=== PATIENT | male | born 1975 | race Caucasian/White ===

== ENCOUNTER 2022-05-12 11:04 | Outpatient (REF) | payer OTHER, SELFPAY ==
--- NOTE | ~2022-05-12 | XR_ITS ---
EXAMINATION: XR CHEST CLINICAL INFORMATION: Other specified symptoms and signs involving the circulatory and respiratory system. COMPARISON: None TECHNIQUE: 2 views of the chest were obtained. FINDINGS: The cardiac and mediastinal contours are normal. The lungs are clear. There is no pleural effusion or pneumothorax. There are degenerative changes of the spine. XR/XR chest 2V IMPRESSION: No evidence for acute disease in the chest.
[2022-05-12 11:20] LABS: MANUAL DIFF FLAG NO
[2022-05-12 12:06] LABS: Basophils Absolute Auto 0.1 X10*3/uL (0.0-0.2); Basophils Percent Auto 0.7 % (0-2); Eosinophils Absolute Auto 0.1 X10*3/uL (0.0-0.4); Eosinophils Percent Auto 0.9 % (0-4); Hematocrit 47.6 % (42.0-52.0); Hemoglobin 15.7 g/dl (14.0-18.0); Imm Gran Abs Auto 0.03 X10*3/uL (0.00-0.03); Imm Gran Pct Auto 0.3 % (0.0-0.4); Lymphocytes Absolute Auto 2.7 X10*3/uL (1.2-4.9); Mean Corpuscular Hemoglobin 29.6 pg (27.0-33.0); Mean Corpuscular Volume 89.8 fL (80.0-98.0); Mean Platelet Volume 10.3 fL (9.4-12.4); Monocytes Absolute Auto 0.5 X10*3/uL (0.1-1.2); Monocytes Percent Auto 5.5 % (2-11); Neutrophils Absolute Auto 5.7 x10*3/uL (2.0-8.3); Neutrophils Percent Auto 62.6 % (45-73); Platelet Count 253 X10*3/uL (160-400)
[2022-05-12 12:10] LABS: Appearance Urine Clear; Color Urine Yellow; Glucose Urine UA Negative (Negative); Leukocyte Esterase Urine Negative (Negative); Nitrite Urine Negative (Negative); PH 6.5 (5.0-9.0); Urine Blood Negative (Negative); Urine Ketones Negative (Negative); Urine Protein Negative (Neg-Trace)
[2022-05-12 12:35] LABS: Alanine Aminotransferase 27 U/L (0-40); Albumin Level 4.7 g/dL (3.5-5.0); Alkaline Phosphatase 99 U/L (39-117); Anion Gap 15 (12-20); Aspartate Amino Transferase 25 U/L (5-37); Bilirubin Total 0.6 mg/dL (0.0-1.0); Blood Urea Nitrogen 18 mg/dL (9-16); Calcium 10.1 mg/dL (8.4-10.2); Carbon Dioxide 27 mmol/L (22-29); Chloride 104 mmol/L (96-108); Cholesterol 129 mg/dL; Estimated Glomerular Filt Rate > 60; Glucose Fasting 81 mg/dL (60-99); HDL Cholesterol 41 mg/dL; LDL Cholesterol Calculated 65 mg/dl; Potassium 4.6 mmol/L (3.3-5.1); Sodium 141 mmol/L (135-145); Total Protein 7.8 g/dL (6.5-8.0); Triglycerides 118 mg/dL
[2022-05-12 12:48] LABS: Creatinine Urine 168.32 mg/dL; Microalbum/Creatinine Ratio Ur 4.1 ug/mg cr
[2022-05-12 12:58] LABS: Prostate Specific Antigen Scr 0.13 ng/mL (<0.05-4.0); TSH reflex Free T4 1.68 uIU/mL (0.32-4.0)
[2022-05-12 13:48] LABS: Folate 4.2 ng/mL (> or = 4.0); Vitamin B12 623 pg/mL (200-900)
== END 2022-05-12 11:05 | disposition home or self-care (01) ==
LOC: HO.XRAY 11:04
PROVIDERS: PCP Family Medicine; Visit Provider Family Medicine
DX: Z00.00 Encounter for general adult medical examination without abnormal findings (principal); R13.10 Dysphagia, unspecified; K21.9 Gastro-esophageal reflux disease without esophagitis; R09.89 Other specified symptoms and signs involving the circulatory and respiratory systems; F17.200 Nicotine dependence, unspecified, uncomplicated; E53.8 Deficiency of other specified B group vitamins; I10 Essential (primary) hypertension; Z12.5 Encounter for screening for malignant neoplasm of prostate; Z79.899 Other long term (current) drug therapy
CPT/HCPCS: 36415; 71046; 80053; 80061; 81003; 82043; 82607; 82746; 84153; 84443; 85025; 99202

== ENCOUNTER 2022-10-24 10:56 | Outpatient (REF) | payer OTHER, SELFPAY ==
[2022-10-24 11:12] LABS: MANUAL DIFF FLAG NO
[2022-10-24 12:08] LABS: Basophils Absolute Auto 0.1 X10*3/uL (0.0-0.2); Eosinophils Absolute Auto 0.1 X10*3/uL (0.0-0.4); Eosinophils Percent Auto 1.8 % (0-4); Hematocrit 42.6 % (42.0-52.0); Hemoglobin 13.9 g/dl (14.0-18.0); Imm Gran Abs Auto 0.04 X10*3/uL (0.00-0.03); Imm Gran Pct Auto 0.8 % (0.0-0.4); Lymphocytes Absolute Auto 2.1 X10*3/uL (1.2-4.9); Lymphocytes Percent Auto 40.9 % (20-40); Mean Corpuscular HGB Conc 32.6 g/dl (31.0-36.0); Mean Corpuscular Hemoglobin 29.7 pg (27.0-33.0); Mean Platelet Volume 10.9 fL (9.4-12.4); Monocytes Absolute Auto 0.4 X10*3/uL (0.1-1.2); Monocytes Percent Auto 7.2 % (2-11); Neutrophils Absolute Auto 2.5 x10*3/uL (2.0-8.3); Neutrophils Percent Auto 48.3 % (45-73); Platelet Count 203 X10*3/uL (160-400); Red Blood Count 4.68 X10*6/uL (4.60-5.80); Red Cell Distribution Width 13.3 % (11.0-16.0); White Blood Count 5.1 X10*3/uL (4.8-10.8)
[2022-10-24 12:59] LABS: Alanine Aminotransferase 22 U/L (0-40); Albumin Level 3.9 g/dL (3.5-5.0); Alkaline Phosphatase 82 U/L (39-117); Anion Gap 10 (12-20); Aspartate Amino Transferase 19 U/L (5-37); Bilirubin Total 0.4 mg/dL (0.0-1.0); Blood Urea Nitrogen 20 mg/dL (9-16); Calcium 9.2 mg/dL (8.4-10.2); Carbon Dioxide 26 mmol/L (22-29); Chloride 112 mmol/L (96-108); Estimated Glomerular Filt Rate > 60; Glucose Fasting 105 mg/dL (60-99); Potassium 4.8 mmol/L (3.3-5.1); Sodium 143 mmol/L (135-145); TSH reflex Free T4 1.05 uIU/mL (0.32-4.0); Total Protein 6.4 g/dL (6.5-8.0)
[2022-10-24 13:03] LABS: Appearance Urine Cloudy; Color Urine Dark Yellow; Glucose Urine UA Negative (Negative); Leukocyte Esterase Urine Negative (Negative); Nitrite Urine Negative (Negative); PH 6.5 (5.0-9.0); Specific Gravity - Urine 1.025 (1.005-1.025); Urine Blood Negative (Negative); Urine Ketones Negative (Negative); Urine Protein Negative (Neg-Trace)
[2022-10-24 13:08] LABS: Erythrocyte Sedimentation Rate 2 MM/HR (0-15)
[2022-10-27 11:12] LABS: CRP High Sensitivity 0.4 mg/L
[2022-10-30 14:33] LABS: Testosterone, Free 72.2 pg/mL (35.0-155.0); Testosterone, Total 435 ng/dL (250-1100)
== END 2022-10-24 10:57 | disposition home or self-care (01) ==
LOC: HO.LAB 10:56
PROVIDERS: PCP Family Medicine; Visit Provider Family Medicine
DX: Z00.00 Encounter for general adult medical examination without abnormal findings (principal); R53.83 Other fatigue
CPT/HCPCS: 36415; 80053; 81003; 84402; 84403; 84443; 85025; 85652; 86141

== ENCOUNTER → 2022-11-03 14:09 | Outpatient (BNVA) | payer OTHER, SELFPAY | PROVIDERS: PCP Family Medicine; Visit Provider Internal Medicine | DX: J44.9 Chronic obstructive pulmonary disease, unspecified (principal); G47.33 Obstructive sleep apnea (adult) (pediatric); G25.81 Restless legs syndrome; M79.2 Neuralgia and neuritis, unspecified; E66.9 Obesity, unspecified; Z99.89 Dependence on other enabling machines and devices | CPT/HCPCS: 99202 ==

== ENCOUNTER → 2022-11-17 09:01 | Outpatient (BNVA) | payer OTHER, SELFPAY | PROVIDERS: PCP Family Medicine; Referring Provider Family Medicine; Visit Provider Internal Medicine Cardiovascular Disease | DX: I25.10 Atherosclerotic heart disease of native coronary artery without angina pectoris (principal); R07.89 Other chest pain | CPT/HCPCS: 93005; 99202 ==

== ENCOUNTER → 2022-11-21 12:43 | Outpatient (REF) | payer OTHER, SELFPAY ==
--- NOTE | 2022-11-21 12:46 | CA_ITS ---
Transthoracic Echocardiogram Patient (Last, First, Middle): Mina Lopes, Gender: Male Date of : 1975 Age: 47 Procedure Date: 11/21/2022 Procedure Type: Transthoracic Echocardiogram Location: OP Height: 185.42 cm Weight: 128.37 kg BSA: 2.49 m2 Heart Rate: 70 bpm BP: 124 / 78 mmHg Bed Laborer: SB Referring MD: Pk Ash MD Symptoms: I25.10 - Atherosclerotic heart disease of standing [place] coronary artery without... Study Quality: Adequate w contrast ECG Rhythm: Sinus Conclusions: - Normal left ventricular size and systolic function. The visually estimated ejection fraction is between 55-60%. - Normal right ventricular cavity size and systolic function. - There is mild dilatation of the sinuses of Valsalva measuring 3.90 cm and mild dilatation of the ascending aorta measuring 3.40 cm. Findings Procedure Information Contrast agent, definity, is being given per protocol without apparent complications. The quality of the study was technically difficult. The study quality is limited by patients body habitus. Left Ventricle Normal left ventricular size and systolic function. The visually estimated ejection fraction is between 55-60%. There is no evidence of regional wall motion abnormalities. Diastolic function is normal for age. Right Ventricle Normal right ventricular cavity size and systolic function. Atria The left atrium is normal in size. The right atrium is normal in size. Aortic Valve Normal aortic valve structure and function. There is no aortic valve stenosis. There is no aortic valve regurgitation. Mitral Valve Likely normal mitral valve structure and function. There is no mitral valve regurgitation. There is no mitral valve stenosis. Pulmonic Valve The pulmonic valve is likely normal. Tricuspid Valve Normal tricuspid valve structure and function. There is no tricuspid valve regurgitation. Normal right atrial pressure. There is no evidence of pulmonary hypertension. Great Vessels There is mild dilatation of the sinuses of Valsalva measuring 3.90 cm and mild dilatation of the ascending aorta measuring 3.40 cm. The visualized portions of the pulmonary artery and branches are normal. Venous The inferior vena cava is normal in size and collapses greater than 50% with inspiration. Pericardium/Pleural There is no evidence of pericardial effusion. Prior Study Comparison No prior study available for comparison. Measurements 2D Linear Measurements IVSd: 0.72 0.6-0.9/0.6-1.0 cm LVIDd: 4.73 3.9-5.3/4.2-5.9 cm LVIDd Index: 1.90 2.4-3.2/2.2-3.1 cm/m2 LVPWd: 0.72 0.7-1.1 cm LA Diam: 3.60 2.7-3.8/3.0-4.0 cm LAIDs Index: 1.45 1.5-2.3 cm/m2 LV Mass: 133.51 67-162/88-224 g LV Mass Index: 53.62 43-95/49-115 g/m2 LVOT Diam: 2.70 3.0+(-)1.3 cm 2D Systolic Function EF 4C: 59.40 >55% Mitral Valve MV Pk E: 0.54 MV PK A: 0.77 MV Decel Time: 155.00 E/A: 0.70 E'Lateral: 8.49 E'Medial: 6.42 E/E' Med: 8.40 E/E' Lat: 6.30 PHT: 45.00 MVA PHT: 4.89 Decel Glynn: 3.48 Aortic Valve AoV Pk Mesfin: 1.37 AoV Mn Mesfin: 1.00 AoV VTI: 0.26 AoV Pk Grad: 8.00 Aov Mn Grad: 5.00 RAMYA Cont.VTI: 5.29 LVOT LVOT Pk Mesfin: 1.33 LVOT Mn Mesfin: 0.93 LVOT VTI: 0.24 LVOT Pk Grad: 7.00 LVOT Mn Grad: 4.00 LVOT Diam: 2.70 LVOT Area: 5.73 Diastolic Function MV Pk E: 0.54 MV Pk A: 0.77 E/A: 0.70 E'Medial: 6.42 E/E' Med: 8.40 E' Laterial: 8.49 E/E' Lat: 6.30 Right Ventricle TAPSE (mm): 20.10 TVS' Mesfin: 10.30 Tricuspid Valve TR Pk Mesfin: 2.30 TR Pk Grad: 21.00 RA Press: 3.00 RVSP: 24.00 Great Vessels Aorta Sinus of Valsalva: 3.90 2.0-3.5 cm Ao Asc: 3.40 2.1-3.4 cm Pulmonary Valve PV Pk Mesfin: 0.77 Peak PV Grad: 2.00 Updated in Other Vendor System with Status of Final Ho Saucedo MD electronically signed on 11/22/2022 8:57:39 PM with status of Final
== END ==
LOC: HO.CARD 12:43
PROVIDERS: PCP Family Medicine; Visit Provider Internal Medicine Cardiovascular Disease
DX: I10 Essential (primary) hypertension (principal); I25.10 Atherosclerotic heart disease of native coronary artery without angina pectoris
CPT/HCPCS: 93306; Q9957

== ENCOUNTER 2022-12-03 10:50 | Outpatient (REF) | payer OTHER, SELFPAY ==
--- NOTE | 2022-12-03 11:51 | PFT_ITS ---
INDICATION: Shortness of breath. SPIROMETRY: FEV1 to FVC of 85% with an FEV1 of 3.56 L, which is 83% predicted and an FVC of 4.21 L, which is 76% predicted. No significant response to bronchodilator is noted. The maximum voluntary ventilation of 97% predicted. LUNG VOLUMES: Total lung capacity 83% predicted with an expiratory residual volume of 83% predicted. DIFFUSION CAPACITY: DLCO 81% predicted. COMPARISONS: None. INTERPRETATION: No obstructive nor restrictive ventilatory defects have been identified. No significant response to bronchodilator is noted. Normal maximum voluntary ventilation. Lung volumes are normal except for decrease in the expiratory reserve volume secondary to an elevated BMI. The diffusion capacity is low normal. Clinical correlation warranted. Ariel Robb MD MR/MODL / [id number]
== END 2022-12-03 10:51 | disposition home or self-care (01) ==
LOC: HO.RESP 10:50
PROVIDERS: PCP Family Medicine; Visit Provider Internal Medicine
DX: J44.9 Chronic obstructive pulmonary disease, unspecified (principal); E66.9 Obesity, unspecified; F17.200 Nicotine dependence, unspecified, uncomplicated
CPT/HCPCS: 94010; 94727; 94729

== ENCOUNTER → 2022-12-04 08:14 | Outpatient (REF) | payer OTHER, SELFPAY ==
--- NOTE | ~2022-12-04 | NM_ITS ---
Lexiscan Myocardial perfusion study Indication: Chest pain, assess for coronary disease and ischemia Technique: The patient was brought in for a Lexiscan perfusion study on 12/04/2022 and was injected 0.4 mg of Lexiscan intravenously. Within a minute of this injection 40 mCi of sestamibi was given intravenously. Images were obtained using the SPECT gamma camera interlaced with the gating device. Images were obtained in supine position. Resting perfusion study was performed on 12/10/2022. Patient was administered 40 mCi of sestamibi intravenously at rest. Images were then obtained in supine position. Images were processed with the software and compared side to side in short axis, horizontal long axis and vertical long axis views. Total DLP 163mGy-cm. Findings: Raw acquisition reviewed. The stress perfusion study showed mildly diminished tracer uptake along the inferior wall. There is improvement with CT attenuation correction is a distal of diaphragmatic attenuation artifact. The gated study shows normal LV systolic function with calculated LVEF of > 70%. LV cavity is normal in size. The gated study shows normal wall thickening and contraction of segments. Resting study shows mildly diminished tracer uptake along the basal to mid inferior wall. There is improvement with CT attenuation correction suggestive of diaphragmatic attenuation artifact. Gating at rest reveals normal wall motion with ejection fraction at > 70%. The findings are consistent with no reversible or fixed perfusion abnormality. NM/NM hilario perf SPECT rest & str Impression: 1. Myocardial perfusion imaging study shows normal myocardial perfusion. 2. Gated LVEF is > 70% during stress and rest. 3. Transient ischemic dilatation not present. EKG component of the test reported separately.
--- NOTE | 2022-12-04 08:16 | CA_ITS ---
Acquisition Time: 2022-12-04 08:27:22 Total Exercise Time: 00:02:00 Test Indications: CP Medications: SEE H Protocol: LEXISCAN Max HR: 105 BPM 59% of Pred: 177 BPM Max BP: 124/066 mmHG Max Work Load: 1.0 METS Pharmacological stress test with Lexiscan injection while sitting and kicking his legs, without anginal symptoms, without arrhythmias, with normotensive response to exercise, without EKG changes. Aminophylline 75mg IVP given to reverse Lexiscan. Nuclear images pending. Test reviewed with Dr. Parr. Referred By: Pk Ash Overread By: CARLOS ENRIQUE VALLEJO
== END ==
LOC: HO.CARD 08:14
PROVIDERS: PCP Family Medicine; Visit Provider Internal Medicine Cardiovascular Disease
DX: R07.89 Other chest pain (principal); I25.10 Atherosclerotic heart disease of native coronary artery without angina pectoris
CPT/HCPCS: 78452; 93017; A9500; J0280; J2785

== ENCOUNTER → 2023-01-01 10:45 | Outpatient (BNVA) | payer OTHER, SELFPAY | PROVIDERS: PCP Family Medicine; Visit Provider Internal Medicine | DX: J44.9 Chronic obstructive pulmonary disease, unspecified (principal); G47.33 Obstructive sleep apnea (adult) (pediatric); E66.9 Obesity, unspecified; Z68.38 Body mass index [BMI] 38.0-38.9, adult; Z99.89 Dependence on other enabling machines and devices | CPT/HCPCS: 99212 ==

== ENCOUNTER → 2023-01-08 13:56 | Outpatient (BNVA) | payer OTHER, SELFPAY | PROVIDERS: PCP Family Medicine; Referring Provider Family Medicine; Visit Provider Nurse Practitioner Family | DX: R07.89 Other chest pain (principal); I25.10 Atherosclerotic heart disease of native coronary artery without angina pectoris; I10 Essential (primary) hypertension; E66.9 Obesity, unspecified; E78.5 Hyperlipidemia, unspecified; Z95.5 Presence of coronary angioplasty implant and graft; Z68.37 Body mass index [BMI] 37.0-37.9, adult | CPT/HCPCS: 99212 ==

== ENCOUNTER 2023-02-03 11:21 | Outpatient (AMB) | payer OTHER, SELFPAY ==
[2023-02-03 11:30] VITALS: BP 118/70; PULSE 77; O2SAT 98; BMI 37.6
--- NOTE | 2023-02-03 11:30 | MHC.PC.OV ---
Vital Signs 02/03/23 11:30 Height 6 ft 1 in Weight 285 lb BMI 37.6 BP 118/70 Blood Pressure Location Lt brachial Position Sitting Pulse 77 Pulse Source Pulse Oximeter Pulse Oximetry (%) 98 Oxygen Delivery Method Room Air Intake Visit Reasons: f/u chronic conditions Intake Note: Patient is here for a follow up on chronic conditions. Allergies erythromycin base Allergy (Mild, Verified 02/03/23 11:36) Confusion clonidine Adverse Reaction (Severe, Verified 02/03/23 11:36) Vomiting Tobacco use date assessed: 02/03/23 Dental Screening Dental Screen Date: 02/03/23 Did you have a dental visit in the last 12 months?: Yes Did you have a dental problem in the last 6 months where you did not have access to dental care?: No Was dental information given to patient?: No HPI f/u chronic conditions HPI Details 48 y/o male presents to f/u chronic conditions. Pt had reported ongoing fatigue. Pt has scored high for significant anxiety/depression. He had spoken to the nurse navigator who had had a long conversation with pt today and are working on a better transportation for him. He denies any SI/HI or any plan for self harm. [facility] Medical History COPD (chronic obstructive pulmonary disease) Diabetes High cholesterol Hypertension Morbid obesity Obesity (BMI 30-39.9) KELSY on CPAP Torn rotator cuff Surgical History (Updated 01/08/23 @ 16:54 by Daisha Lopez LOLLYPOP MACHINE OPERATOR-C) History of carpal tunnel surgery Stented coronary artery Social History Housing: House Patient Tobacco Use Status: Former Tobacco user e-Cigarette/Vaping Use: Never Used Second Hand Smoke Exposure: No service: No Current occupational status: unemployed Current occupational exposures/hazards: No Cognitive needs: No Hearing needs: No Vision needs: No Questionnaire PHQ-9 Over the last 2 weeks, how often have you been bothered by any of the following problems? 1. Little interest or pleasure in doing things: nearly every day 2. Feeling down, depressed, or hopeless: nearly every day 3. Trouble falling or staying asleep, or sleeping too much: nearly every day 4. Feeling tired or having little energy: nearly every day 5. Poor appetite or overeating: nearly every day 6. Feeling bad about yourself - or that you are a failure or have let yourself or your family down: nearly every day 7. Trouble concentrating on things, such as reading the newspaper or watching television: nearly every day 8. Moving or speaking so slowly that other people could have noticed. Or the opposite - being so fidgety or restless that you have been moving around a lot more than usual: nearly every day 9. Thoughts that you would be better off or of hurting yourself in some way: nearly every day Total score: 27 Source: Developed by Drs. Arnoldo Carreno, Dyan Edwards, Alvarez Jose and colleagues, with an educational shanna from [employer]. Thrive Questionnaire Date Thrive assessed: 06/16/22 I am a: Patient What is your living situation today?: I have a steady place to live Within the past 12 months, did the food you bought not last and you didn't have the money to get more?: Never true Within the past 12 months, did you worry whether your food would run out before you got money to buy more?: Never true Do you have trouble paying for medicines?: No Do you have trouble getting transportation to medical appointments?: Yes Do you have trouble paying your heating and electricity bill?: No Do you have trouble taking care of your child, family member or friend?: No Do you have trouble with day-to-day activities such as bathing, preparing meals, shopping, managing finances, etc.?: Yes Are you currently unemployed and looking for a job?: No Are you interested in more education?: No AUDIT C Alcohol Use Questionnaire (AUDIT-C) 1. How often do you have a drink containing alcohol?: Never 3. How often do you have six or more drinks on one occasion?: Never Total Score: 0 LAMBERTO-7 AMB Questionnaire LAMBERTO-7 Date LAMBERTO - 7 assessed: 06/16/22 Feeling nervous, anxious, or on edge: 3 = Nearly every day Not being able to stop or control worryin = Nearly every day Worrying too much about different things: 3 = Nearly every day Trouble relaxin = Nearly every day Being so restless that it is hard to sit still: 3 = Nearly every day Becoming easily annoyed or irritable: 3 = Nearly every day Feeling afraid as if something awful might happen: 3 = Nearly every day Total LAMBERTO-7 score (0-4 normal; 5-9 mild; 10-14 moderate; 15-21 severe): 21 Source: Developed by Drs. Arnoldo Carreno, Dyan Edwards, Alvarez Jose and colleagues, with an educational shanna from [employer]. ACT Questionnaire In the past 4 weeks, how much of the time did your asthma keep you from getting as much done at work, school or at home?: Most of the time During the past 4 weeks, how often have you had shortness of breath?: More than once a day During the past 4 weeks, how often did your asthma symptoms wake you up at night or earlier than usual in the morning?: Not at all During the past 4 weeks, how often have you had to use your rescue inhaler or nebulizer medication?: Not at all How would you rate your asthma control during the past 4 weeks?: Not controlled at all Score: 14 Review of Systems Const Reports fatigue Psych Reports anxiety and Reports depression Endo Reports fatigue Physical exam (Primary Care) Vital Signs: Last Vital Signs Pulse 77 02/03/23 11:30 BP 118/70 02/03/23 11:30 Pulse Ox 98 02/03/23 11:30 Oxygen Delivery Method Room Air 02/03/23 11:30 BMI result Body Mass Index 37.6 Tobacco/Smoking Status: Tobacco use Status Tobacco use date assessed 02/03/23 02/03/23 11:44 Patient Tobacco Use Status Former Tobacco user 02/03/23 11:44 e-Cigarette/Vaping Use Never Used 02/03/23 11:44 PHQ-9: PHQ-9 Score PHQ-9: Total score 27 02/03/23 12:06 Thrive Assessment: Date of Thrive Assessment Date Thrive assessed 06/16/22 02/03/23 11:44 Assessment and Plan Assessment & Plan (1) Anxiety with depression: Code(s): F41.8 - Other specified anxiety disorders Plan: Questionnaires scoring high for depression and anxiety Spoke to nurse navigator who had had a long conversation with patient today They are working on better transportation options for him Patient denies suicidality or any plan of self-harm. Patient has a therapist and psychiatrist and will follow-up with them as well. (2) Fatigue: Code(s): R53.83 - Other fatigue Plan: Had questions regarding low testosterone but T levels were within normal limits (3) Chest discomfort: Code(s): R07.89 - Other chest pain Plan: Extensive workup now including echocardiogram and nuclear stress test are normal. He does have known early coronary artery disease and is followed by cardiology. Chest x-ray also normal. No underlying cause found for chest discomfort which is somewhat atypical pain Will add physical therapy for likely chest wall pain and associated pain from a left shoulder rotator cuff injury. (4) Left knee pain: Code(s): M25.562 - Pain in left knee Plan: Check x-ray and refer to ortho Orders: Orders XR knee LT 3V Today M25.562 - Pain in left knee PT Evaluation and Treatment Today R07.89 - Other chest pain Referrals Orthopedics Referral M25.512 - Pain in left shoulder, M25.562 - Pain in left knee Medications: Changed From gabapentin 100 mg (0.3333 x 300 mg) PO TID 30 days 30 caps 0RF To gabapentin 300 mg PO TID 30 days 90 caps 2RF Refilled aspirin (Adult Low Dose Aspirin) 81 mg PO DAILY 90 days 90 tabs 2RF metformin 500 mg PO BID 90 days 180 tabs 2RF Coding Level of Care Code Est Pt Level 4 (50628) Diagnoses Anxiety with depression F41.8 Fatigue R53.83 Chest discomfort R07.89 Left knee pain M25.562
== END 2023-02-03 12:15 | disposition home or self-care (01) ==
PROVIDERS: Visit Provider Family Medicine
DX: F41.8 Other specified anxiety disorders (principal); R53.83 Other fatigue; R07.89 Other chest pain; M25.562 Pain in left knee
CPT/HCPCS: 99214

== ENCOUNTER 2023-03-25 09:14 | Outpatient (REF) | payer OTHER, SELFPAY ==
--- NOTE | ~2023-03-25 | FL_ITS ---
EXAMINATION: ESOPHAGRAM CLINICAL INFORMATION: Dysphasia. COMPARISON: None available. TECHNIQUE: Esophagram. FINDINGS: There is normal elevation of the soft palate while saying candy. There is normal apposition of the vocal cords while saying E. The patient swallowed thin and thick barium and a half-inch diameter barium tablet without difficulty. No nasopharyngeal reflux or tracheal aspiration. No significant cricopharyngeal hypertrophy. No Zenker's diverticulum is seen. There is some delay in transit while swallowing barium-coated cookie with some residual noted initially within the piriform sinuses. The patient states at that time that this reproduced his findings. Lying prone and drinking there is noted to be hypomotility of the esophagus. No mucosal abnormality is seen. No persistent stricture is noted. No hiatal hernia is seen. No gastroesophageal reflux was elicited during the study, including with water siphon test. FL/FL barium swallow with air IMPRESSION: Esophageal hypomotility as described with some delay in transit of solid food, most prominent in the cervical esophagus.
== END 2023-03-25 09:15 | disposition home or self-care (01) ==
LOC: HO.XRAY 09:14
PROVIDERS: PCP Family Medicine; Visit Provider Physician Assistant
DX: R13.10 Dysphagia, unspecified (principal); K51.90 Ulcerative colitis, unspecified, without complications; K21.9 Gastro-esophageal reflux disease without esophagitis
CPT/HCPCS: 74221

== ENCOUNTER → 2023-03-25 09:15 | Outpatient (BNV) | payer OTHER, SELFPAY | PROVIDERS: PCP Family Medicine; Visit Provider Radiology Diagnostic Radiology | DX: R13.10 Dysphagia, unspecified (principal) | CPT/HCPCS: 74221 ==

== ENCOUNTER 2023-03-31 09:31 | Outpatient (REF) | payer OTHER, SELFPAY ==
--- NOTE | ~2023-03-31 | XR_ITS ---
EXAMINATION: XR KNEE, LEFT CLINICAL INFORMATION: Pain. COMPARISON: None available. TECHNIQUE: AP, lateral and tunnel views of the left knee are submitted. FINDINGS: Bony alignment and mineralization are normal. The lateral, medial and patellofemoral joint space compartments are well-maintained. No fracture or dislocation is seen. This is very small joint effusion. There is a small osteophyte arising from the upper pole of the patella. No foreign body is seen. XR/XR knee LT 3V IMPRESSION: 1. No left knee fracture, dislocation or usual degenerative change is seen. 2. There is a very small left knee joint effusion.
[2023-03-31 09:49] LABS: MANUAL DIFF FLAG NO
[2023-03-31 10:55] LABS: Basophils Percent Auto 0.6 % (0-2); Eosinophils Absolute Auto 0.1 X10*3/uL (0.0-0.4); Eosinophils Percent Auto 1.1 % (0-4); Hematocrit 43.7 % (42.0-52.0); Hemoglobin 14.6 g/dl (14.0-18.0); Imm Gran Abs Auto 0.04 X10*3/uL (0.00-0.03); Imm Gran Pct Auto 0.6 % (0.0-0.4); Lymphocytes Absolute Auto 2.4 X10*3/uL (1.2-4.9); Lymphocytes Percent Auto 38.8 % (20-40); Mean Corpuscular HGB Conc 33.4 g/dl (31.0-36.0); Mean Corpuscular Hemoglobin 30.2 pg (27.0-33.0); Mean Corpuscular Volume 90.3 fL (80.0-98.0); Monocytes Absolute Auto 0.5 X10*3/uL (0.1-1.2); Monocytes Percent Auto 7.4 % (2-11); Neutrophils Absolute Auto 3.2 x10*3/uL (2.0-8.3); Neutrophils Percent Auto 51.5 % (45-73); Platelet Count 223 X10*3/uL (160-400); Red Blood Count 4.84 X10*6/uL (4.60-5.80); Red Cell Distribution Width 13.2 % (11.0-16.0); White Blood Count 6.2 X10*3/uL (4.8-10.8)
[2023-03-31 12:03] LABS: Alanine Aminotransferase 20 U/L (0-40); Albumin Level 4.3 g/dL (3.5-5.0); Alkaline Phosphatase 87 U/L (39-117); Anion Gap 9 (12-20); Aspartate Amino Transferase 19 U/L (5-37); Bilirubin Total 0.3 mg/dL (0.0-1.0); Blood Urea Nitrogen 19 mg/dL (9-16); Calcium 9.9 mg/dL (8.4-10.2); Carbon Dioxide 25 mmol/L (22-29); Chloride 113 mmol/L (96-108); Estimated Glomerular Filt Rate 57; Glucose Random 139 mg/dL (60-115); Potassium 3.8 mmol/L (3.3-5.1); Sodium 143 mmol/L (135-145); Total Protein 7.4 g/dL (6.5-8.0)
== END 2023-03-31 09:32 | disposition home or self-care (01) ==
LOC: HO.XRAY 09:31
PROVIDERS: PCP Family Medicine; Visit Provider Family Medicine
DX: Z00.00 Encounter for general adult medical examination without abnormal findings (principal); M25.562 Pain in left knee; Z20.9 Contact with and (suspected) exposure to unspecified communicable disease
CPT/HCPCS: 36415; 73562; 80053; 85025

== ENCOUNTER 2023-04-07 08:32 | Outpatient (REF) | payer OTHER, SELFPAY ==
--- NOTE | ~2023-04-07 | XR_ITS ---
EXAMINATION: XR knee LT 1V CLINICAL INFORMATION: Pain COMPARISON: 03/31/2023 TECHNIQUE: Single sunrise view of the left knee FINDINGS: The patellofemoral joint is well aligned. Small osteophytes are seen, particularly along the lateral aspect of the patella. Soft tissues appear unremarkable. XR/XR knee LT 1V IMPRESSION: Mild degenerative changes of the patellofemoral joint.
--- NOTE | ~2023-04-07 | XR_ITS ---
EXAMINATION: XR KNEE AP STANDING CLINICAL INFORMATION: Knee pain COMPARISON: None available. TECHNIQUE: AP bilateral standing view of the knees was obtained. FINDINGS: No fracture or dislocation. On standing knee view, knee joints appear symmetric with only mild left medial knee joint narrowing seen. XR/XR knee standing BI IMPRESSION: Mild left medial knee joint narrowing.
== END 2023-04-07 08:33 | disposition home or self-care (01) ==
LOC: HO.HOSX 08:32
PROVIDERS: Visit Provider Physician Assistant
DX: M17.12 Unilateral primary osteoarthritis, left knee (principal); E11.9 Type 2 diabetes mellitus without complications
CPT/HCPCS: 20610; 73560; 73565; J1020

== ENCOUNTER 2023-04-07 14:55 | Outpatient (AMB) | payer OTHER, SELFPAY ==
[2023-04-07 15:14] VITALS: BMI 38.6
--- NOTE | 2023-04-07 15:14 | MHC.OFFVIS ---
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 Hx of left knee surgery 06/2020. Patient reports ongoing pain since his surgery but its getting worse over the years. Hx of many cortisone injections with no relief. Hx of a PT for about 2 months with no relief. Pain is on the medial and lateral aspect of the knee per patient. 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 The patient reports chronic pain since his left knee surgery in 06/2020. He claims his pain is on the medial and lateral aspect of the left knee. He reports increased pain with weight bearing. Patient has a surgical history of left knee in 06/2020, unclear what procedure was performed. Patient has a history of cortisone injections with no relief. Patient has a history of participating in physical therapy for about 2 months with no relief. [facility] Medical History COPD (chronic obstructive pulmonary disease) Diabetes High cholesterol Hypertension Morbid obesity Obesity (BMI 30-39.9) KELSY on CPAP Torn rotator cuff Surgical History (Updated 01/08/23 @ 16:54 by Daisha Lopez NP-C) Stented coronary artery History of carpal tunnel surgery Social History Housing: House Patient Tobacco Use Status: Former Tobacco user e-Cigarette/Vaping Use: Never Used Second Hand Smoke Exposure: No service: No Current occupational status: unemployed Current occupational exposures/hazards: No Cognitive needs: No Hearing needs: No Vision needs: No Review of Systems Const All systems reviewed & are unremarkable except as noted in HPI and below Physical Exam Vital Signs: BMI result Body Mass Index 38.6 Const General: cooperative and no acute distress Orientation/consciousness: patient oriented x3 Resp Effort & Inspection: normal respiratory effort and able to speak in complete sentences Cardio Peripheral pulses: Peripheral pulses 2+ throughout Skin General skin exam: no rashes or lesions noted Neuro General: patient oriented x3 Extrem Other: Left knee: Normal to inspection. No ecchymosis, erythema, or joint effusion. Tenderness to palpation to the medial or lateral joint lines. Full knee extension and flexion. Negative Kalpana's. NVI. Office Procedures Joint Injection/Drain Joint Injection/Drain Primary Site: left knee Prep: site was prepped using aseptic technique, ethochloride spray was applied and injection warnings given Injected: 40 mg of, DepoMedrol, with 8 mL of (2% plain lido) and in the joint Approach Used: anterolateral Procedure: The patient tolerated the procedure well, but had some pain with the injection and there was some relief with the local anesthesia Coding 13056 - Large joint Procedure code (CPT) selection complete Results Reviewed Results Reviewed: 04/07/23 15:35 Lidocaine HCl 2 % MPF [Xylocaine 2 % MPF] 5 ml .ROUTE .STK-MED ONE methylPREDNISolone acetate [DEPO-MedroL] 40 mg .ROUTE .STK-MED ONE Assessment & Plan Assessment & Plan (1) Osteoarthritis of left knee: Code(s): M17.12 - Unilateral primary osteoarthritis, left knee Qualifiers: Osteoarthritis type: primary Qualified Code(s): M17.12 - Unilateral primary osteoarthritis, left knee (2) Diabetes: Code(s): E11.9 - Type 2 diabetes mellitus without complications Plan Mr. Gonsalez is a 48-year-old male who presents in the office today, as a new patient, for an evaluation of left knee pain. The patient reports chronic pain since his left knee surgery in 06/2020. He claims his pain is on the medial and lateral aspect of the left knee. He reports increased pain with weight bearing. Patient has a surgical history of left knee in 06/2020, unclear what procedure was performed. Patient has a history of cortisone injections with no relief. Patient has a history of participating in physical therapy for about 2 months with no relief. Although the exam for the left knee was normal the patient reports pain and discomfort with weight bearing. The patient confirms cortisone injections in the past prior to his left knee surgery (unknown procedure). He states these injections did not give him relief. I discussed the role of injections with him while in the office today. He has agreed to move forward with a cortisone injection. However, should he not have resolution of symptoms he will call the office in 4 weeks and we will refer him for an MRI at this time. The patient was offered a cortisone injection in the left knee with 40mg of DepoMedrol. The patient was explained the risk, benefits, and alternatives to receiving this injection. After receiving consent for the injection, the patient had the procedure done while in office today. The patient tolerated the procedure well with no complications. Follow up will be in 4 weeks via phone call to discuss moving forward with an MRI, or sooner if needed. X-rays of the left knee which were obtained while in the office today and were reviewed by me, Laverne Rae PA-C, revealed osteoarthritis. Orders: Orders XR knee standing BI Today M25.569 - Pain in unspecified knee XR knee LT 1V Today M25.569 - Pain in unspecified knee Patient Instructions: Scribed for Laverne Rae PA-C by Megha Kennedy medical record librarians teacher, on 04/07/2023 at 3:00 pm, EST. Coding Level of Care Code New Pt Level 4 (90642) Diagnoses Primary osteoarthritis of left knee M17.12 Osteoarthritis type: primary Diabetes E11.9 CPT Codes Coding - 32344 Large joint: 65664 - Large joint ([id number])
== END 2023-04-07 15:45 | disposition home or self-care (01) ==
PROVIDERS: PCP Family Medicine; Visit Provider Physician Assistant
DX: M17.12 Unilateral primary osteoarthritis, left knee (principal)
CPT/HCPCS: 20610; 99204

== ENCOUNTER 2023-04-08 11:16 | Outpatient (AMB) | payer OTHER, SELFPAY ==
[2023-04-08 11:25] VITALS: BP 100/52; PULSE 88; RESP 18; TEMP 37.2; O2SAT 99; BMI 37.3
--- NOTE | 2023-04-08 11:25 | A.OFFPC_ITS ---
Vital Signs 04/08/23 11:25 Height 6 ft Weight 275 lb 6 oz BMI 37.3 BP 100/52 L Blood Pressure Location Lt brachial Position Sitting Respiration 18 Pulse 88 Pulse Source Pulse Oximeter Temp 98.9 F Temp Source Temporal Artery Scan Pulse Oximetry (%) 99 Oxygen Delivery Method Room Air Intake Visit Reasons: f/u chronic conditions Intake Note: Patient is here to discuss chronic conditions. Patient reports he uses a CPAP machine and is concerned about dark red dried line around his mouth/on his lips. Patient reports he often experiences dry mouth because of his CPAP and when he swishes water in the morning its pink with blood tinged mucus. 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 A1c today 04/08/23 is 5.6%. He is on metformin 500mg b.i.d. Blood pressure today 100/52. He is on carvedilol 25mg and amlodipine 10mg daily. Pt has complaints of a thrush. [facility] Medical History COPD (chronic obstructive pulmonary disease) Diabetes High cholesterol Hypertension Morbid obesity Obesity (BMI 30-39.9) KELSY on CPAP Torn rotator cuff Surgical History (Updated 01/08/23 @ 16:54 by Daisha Lopez RF TEST ENGINEER-C) Stented coronary artery History of carpal tunnel surgery Social History Housing: House Patient Tobacco Use Status: Former Tobacco user e-Cigarette/Vaping Use: Never Used Second Hand Smoke Exposure: No service: No Current occupational status: unemployed Current occupational exposures/hazards: No Cognitive needs: No Hearing needs: No Vision needs: No Questionnaire Thrive Questionnaire Date Thrive assessed: 06/16/22 LAMBERTO-7 AMB Questionnaire LAMBERTO-7 Date LAMBERTO - 7 assessed: 06/16/22 Source: Developed by Drs. Arnoldo Carreno, Dyan dEwards, Alvarez Jose and colleagues, with an educational shanna from [employer]. Review of Systems Const Denies chills, Denies fatigue, Denies fever(s), Denies headache(s) and Denies weakness ENT Denies dizziness and Denies headache(s) Card Denies chest pain, Denies lightheadedness, Denies dyspnea and Denies other (Palpitations) Resp Denies cough, Denies dyspnea, Denies wheezing and Denies other ( shortness of breath) Musc Denies numbness and Denies tingling Neuro Denies dizziness, Denies headache(s), Denies numbness, Denies tingling, Denies paresthesias and Denies weakness Psych Denies anxiety and Denies depression Endo Denies fatigue Aller/Immun Denies wheezing Physical exam (Primary Care) Vital Signs: Last Vital Signs Temp 98.9 F 04/08/23 11:25 Pulse 88 04/08/23 11:25 Resp 18 04/08/23 11:25 BP 100/52 L 04/08/23 11:25 Pulse Ox 99 04/08/23 11:25 Oxygen Delivery Method Room Air 04/08/23 11:25 BMI result Body Mass Index 37.3 Tobacco/Smoking Status: Tobacco use Status Tobacco use date assessed 02/03/23 04/08/23 11:29 Patient Tobacco Use Status Former Tobacco user 04/08/23 11:29 e-Cigarette/Vaping Use Never Used 04/08/23 11:29 Thrive Assessment: Date of Thrive Assessment Date Thrive assessed 06/16/22 04/08/23 11:29 Const General: no acute distress and well developed Nutritional Appearance: well nourished Orientation/consciousness: patient oriented x3 [facility] Head: Yes normocephalic and Yes atraumatic Eyes General: appearance normal, both eyes and all related structures Pupils: Equal, round and reactive pupils present EOM: EOMs intact bilaterally Resp Effort & Inspection: normal respiratory effort Auscultation: clear to auscultation bilaterally Cardio Rate: regular rate Rhythm: regular rhythm Heart sounds: S1 normal heart sound present, S2 normal heart sound present, no gallops, no murmurs and no rubs Neuro General: patient oriented x3 and gait normal Cranial nerves: Yes Equal, round and reactive pupils present Psych Affect: normal affect Results AMB Hemoglobin A1c AMB Hemoglobin A1c 5.6 % Last Edit by Cuca Lackey on 04/08/23 11:5 0 Results Reviewed Results Reviewed: Laboratory Last Values Hgb A1c (Clinic) 5.6 % (4.0-6.0) 04/08/23 11:44 Assessment and Plan Assessment & Plan (1) Diabetes: Code(s): E11.9 - Type 2 diabetes mellitus without complications Plan: A1c 5.6% shows good control. Goal is less than 7.0% Continue current medication regimen (2) Hypertension: Code(s): I10 - Essential (primary) hypertension Plan: Blood pressure controlled. Goal is less than 130/80 No medication changes made (3) Difficulty swallowing: Comment: Non invasive follow- awaiting cardiac/ pulmonary consults. Code(s): R13.10 - Dysphagia, unspecified Plan: Ongoing difficulty swallowing. His barium swallow test showed hypomotility primarily in the cervical region. Will check a modified barium swallow and likely refer to speech language pathology or ENT (4) Thrush: Code(s): B37.0 - Candidal stomatitis Plan: Dark discoloration on tongue and patient uses a steroid controller inhaled medication Will give him a script for nystatin Advised he rinse his mouth out after use of his inhaled medications. (5) Osteoarthritis of left knee: Code(s): M17.12 - Unilateral primary osteoarthritis, left knee Qualifiers: Osteoarthritis type: primary Qualified Code(s): M17.12 - Unilateral primary osteoarthritis, left knee Plan: Ongoing left knee arthritis and pain. X-ray showed degenerative changes Steroid injection yesterday. Patient says he has had no relief though it is still rather soon to conclude failure. He has follow-up with ortho Orders: Orders FL barium swallow modified Today R13.10 - Dysphagia, unspecified Medications: New nystatin swish and swallow 5 mL PO DAILY 10 days 50 mL 1RF Coding Level of Care Code Est Pt Level 4 (17829) Diagnoses Diabetes E11.9 Hypertension I10 Difficulty swallowing R13.10 Thrush B37.0 Primary osteoarthritis of left knee M17.12 Osteoarthritis type: primary
== END 2023-04-08 12:58 | disposition home or self-care (01) ==
PROVIDERS: PCP Family Medicine; Visit Provider Family Medicine
DX: E11.9 Type 2 diabetes mellitus without complications (principal); I10 Essential (primary) hypertension; R13.10 Dysphagia, unspecified; B37.0 Candidal stomatitis; M17.12 Unilateral primary osteoarthritis, left knee
CPT/HCPCS: 99214

== ENCOUNTER 2023-04-30 10:32 | Outpatient (AMB) | payer OTHER, SELFPAY ==
[2023-04-30 10:59] VITALS: BP 110/70; PULSE 73; O2SAT 99; BMI 36.3
--- NOTE | 2023-04-30 10:59 | MHC.OFFVIS ---
Intake Vital Signs 04/30/23 10:59 Height 6 ft Weight 268 lb BMI 36.3 BP 110/70 Blood Pressure Location Lt brachial Position Sitting Pulse 73 Pulse Source Pulse Oximeter Pulse Oximetry (%) 99 Oxygen Delivery Method Room Air Intake Visit Reasons: somnolence Intake Note: pt is here for follow up and states he is still always tired even though he is using cpap. 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 Required: No Allergies erythromycin base Allergy (Mild, Verified 04/30/23 11:26) Confusion clonidine Adverse Reaction (Severe, Verified 04/30/23 11:26) Vomiting Medication List - Last Reconciled 04/30/23 by Jessica Wylie MD amitriptyline 50 mg PO BEDTIME amlodipine 10 mg PO DAILY 90 days aripiprazole 5 mg PO DAILY 90 days aspirin (Adult Low Dose Aspirin) 81 mg PO DAILY 90 days atorvastatin 80 mg PO DAILY 90 days bupropion HCl 150 mg PO QAM 90 days bupropion HCl 300 mg PO DAILY 90 days carvedilol 25 mg PO Q12H 90 days cholecalciferol (vitamin D3) 25 mcg PO DAILY 90 days clopidogrel 75 mg PO DAILY 90 days cyanocobalamin (vitamin B-12) 1,000 mcg PO DAILY 90 days duloxetine 30 mg PO DAILY 90 days esomeprazole magnesium 20 mg PO DAILY gabapentin 300 mg PO TID 30 days hydroxyzine HCl 25 mg PO BID 30 days indomethacin 25 mg PO BID 30 days ipratropium-albuterol 20-100 mcg/actuation (Combivent Respimat) 1 puff inhalation Q6H 90 days isosorbide mononitrate ER 30 mg PO DAILY 90 days loratadine 10 mg PO DAILY 90 days metformin 500 mg PO BID 90 days nystatin 5 mL PO DAILY 10 days pramipexole 0.5 mg PO BEDTIME 30 days tamsulosin 0.4 mg PO DAILY 90 days topiramate 100 mg PO DAILY triamcinolone acetonide 0.1% 1 appl topical DAILY 30 days umeclidinium-vilanterol 62.5-25 mcg/actuation (Anoro Ellipta) 1 inh inhalation Q24H 30 days Do you need a note to return to daycare/school/sports/work: No HPI somnolence HPI Details Mina is 48 years old gentleman with multiple comorbidities, including gross obesity, obstructive sleep apnea, and chronic asthma/COPD, comes for his routine follow-up. He uses CPAP very regularly every night and to 10 hours daily. He still remains tired and sleepy, He has lot of osteoarthritis in multiple joints, and is not able to move around much. He tries to limit his calories intake but cannot lose weight. His breathing is remaining stable but he continues to be short of breath on minimal exertion. His pulmonary function test does not show much of obstructive airway disorder, But he is using Anoro Ellipta once a day and Combivent Respimat 4 times a day. Still has mild intermittent cough, and gets short of breath on exertion. He is a former smoker, quit a few years ago and does not smoke anymore. [facility] Medical History Obesity (BMI 30-39.9) COPD (chronic obstructive pulmonary disease) KELSY on CPAP Morbid obesity Torn rotator cuff Diabetes High cholesterol Hypertension Surgical History Stented coronary artery History of carpal tunnel surgery Social History Housing: House Patient Tobacco Use Status: Former Tobacco user e-Cigarette/Vaping Use: Never Used Second Hand Smoke Exposure: No service: No Current occupational status: unemployed Current occupational exposures/hazards: No Cognitive needs: No Hearing needs: No Vision needs: No Review of Systems Const All systems reviewed & are unremarkable except as noted in HPI and below Eyes Reports no additional complaints ENT Reports no additional complaints Card Denies chest pain, Denies irregular heart rhythm and Denies leg edema Resp Reports as per HPI GI Reports heartburn (GERD symptoms being treated) Reports difficulty urinating and Reports nocturia Musc Reports numbness (Lower extremity) and Reports other (Carpal tunnel syndrome both wrists) Skin/Breast Reports dry skin Neuro Reports numbness (Lower extremity) and Reports restless legs Psych Reports anxiety and Reports depression Endo Reports other (Being treated for diabetes mellitus) Ludin/Lymph Reports no additional complaints Aller/Immun Reports no additional complaints Physical Exam Vital Signs: Last Vital Signs Pulse 73 04/30/23 10:59 BP 110/70 04/30/23 10:59 Pulse Ox 99 04/30/23 10:59 Oxygen Delivery Method Room Air 04/30/23 10:59 BMI result Body Mass Index 36.3 This gentleman is grossly obese, with a round face, and a fat neck. Const General: comfortable, no acute distress, alert and awake Orientation/consciousness: patient oriented x3 HEENT Head: Yes normal to inspection General nose exam: No nasal polyps present and No nasal discharge present Face and sinus: Yes sinuses nontender Mouth: oropharynx normal (Oropharynx is crowded, Mallampati class 4) Throat: Yes posterior oropharynx normal Eyes General: appearance normal, both eyes and all related structures Neck Neck: Yes normal visual inspection, Yes no lymphadenopathy, Yes trachea midline and Yes no JVD Thyroid: Thyroid normal Chest Chest palpation & inspection: normal inspection of the chest, normal palpation of entire chest wall and no tenderness Resp Other: Percussion note not perceptible because of the thick and obese chest wall. Breath sounds are generally distant. especially over the basilar areas No audible wheezes or rhonchi, or crepitations. Cardio Palpation: PMI not normal (Not palpable) Rate: regular rate Rhythm: regular rhythm Heart sounds: no gallops and no murmurs GI Palpation (GI): Soft to palpation, Tenderness to palpation present (GI), No hepatosplenomegaly present, Palpable mass present and Other GI palpation findings present (Abdomen is grossly obese and slightly protuberant) Auscultation: normal bowel sounds Back/Spine/Pelvis Thoracic/Lumbar Spine: thoracic and lumbar spine normal to inspection and thoraco-lumbar ROM limited Skin General skin exam: no rashes or lesions noted and dry skin Neuro General: patient oriented x3 and no focal motor deficits Cranial nerves: Yes CN's II-XII intact bilaterally Extrem General: Yes normal to inspection, Yes no clubbing, cyanosis or edema and Yes no calf tenderness Psych Appearance: grossly normal and well kempt Speech and movement: Normal speech and movement present Results Reviewed Results Reviewed: Pulmonary function test on 12/03/2022. FVC 72% which is slightly decreased. All other flow volumes were normal. And there was no response to BD challenge. Lung volumes and diffusion capacity were all normal. COMPLIANCE REPORT SHOWS THAT HE HAS USED 30/30 NIGHTS, 100%. AVERAGE USE IT PER DAY IS 10 HOURS 49 MINUTES, HE USES AT NIGHT WELL DURING THE DAYTIME, WHEN HE. FALLS ASLEEP IN THE RECLINER PRESSURE 15 CM, THERE IS EVIDENCE OF AIR LEAK. RESIDUAL AHI 3.5 Assessment & Plan Assessment & Plan (1) KELSY on CPAP: Comment: PATIENT DOES HAVE OBSTRUCTIVE SLEEP APNEA FOR MANY YEARS, HE HAS BEEN USING CPAP REGULARLY, PRESSURE 13 CM, FULLFACE MASK. HE BENEFITS FROM THE USE OF CPAP. NEED LEAK PROBLEM WAS BROUGHT TO HIS ATTENTION HE IS ADVISED TO TIGHTEN THE STRAPS. Code(s): G47.33 - Obstructive sleep apnea (adult) (pediatric); Z99.89 - Dependence on other enabling machines and devices (2) Obesity (BMI 30-39.9): Comment: THIS IS A CHRONIC PROBLEM IN THIS CASE, PATIENT IS FULLY AWARE, HE TRIES TO LIMIT CALORIES INTAKE. It is BECAUSE OF LOW LEVEL ACTIVITY THAT HE CANNOT LOSE WEIGHT. HOWEVER HE HAS LOST ABOUT 7 LB IN THE LAST 4 MONTHS. HE IS ENCOURAGED TO DO SOME WALKING ON A DAILY BASIS. Code(s): E66.9 - Obesity, unspecified (3) COPD (chronic obstructive pulmonary disease): Comment: PATIENT HAS BEEN TREATED A CASE OF CHRONIC OBSTRUCTIVE PULMONARY DISEASE/BRONCHIAL ASTHMA. I EXPLAINED TO HIM THE RESULTS OF PULMONARY FUNCTION TEST BEING ALMOST NORMAL. HE DOES NOT BELIEVE IT AND SAY IS IF HE DOES NOT USE BREO ELLIPTA AND COMBIVENT RESPIMAT HE GETS MORE COUGH AND SHORTNESS OF BREATH. RECC . I TOLD HIM THAT HE MAY CONTINUE TO USE ANORO ELLIPTA ONCE A DAY. BUT HE SHOULD USE COMBIVENT RESPIMAT 1 INHALATION Q 4-6 HOURS ONLY P.R.N., AND NOT REGULARLY. Code(s): J44.9 - Chronic obstructive pulmonary disease, unspecified Coding Level of Care Code Est Pt Level 4 (41373) Diagnoses KELSY on CPAP G47.33; Z99.89 Obesity (BMI 30-39.9) E66.9 COPD (chronic obstructive pulmonary disease) J44.9
== END 2023-04-30 11:27 | disposition home or self-care (01) ==
PROVIDERS: PCP Family Medicine; Visit Provider Internal Medicine
DX: G47.33 Obstructive sleep apnea (adult) (pediatric) (principal); Z99.89 Dependence on other enabling machines and devices; E66.9 Obesity, unspecified; J44.9 Chronic obstructive pulmonary disease, unspecified
CPT/HCPCS: 99214

== ENCOUNTER → 2023-04-30 10:32 | Outpatient (BNVA) | payer OTHER, SELFPAY | PROVIDERS: PCP Family Medicine; Visit Provider Internal Medicine | DX: J44.9 Chronic obstructive pulmonary disease, unspecified (principal); G47.33 Obstructive sleep apnea (adult) (pediatric); E66.9 Obesity, unspecified; Z68.36 Body mass index [BMI] 36.0-36.9, adult; Z99.89 Dependence on other enabling machines and devices | CPT/HCPCS: 99212 ==

== ENCOUNTER 2023-07-08 10:45 | Outpatient (AMB) | payer OTHER, SELFPAY ==
--- NOTE | 2023-07-08 10:57 | A.OFFPC_ITS ---
Vital Signs 07/08/23 10:58 Height 6 ft Weight 265 lb 4 oz BMI 36.0 BP 112/72 Blood Pressure Location Lt brachial Position Sitting Pulse 88 Pulse Source Pulse Oximeter Pulse Oximetry (%) 98 Oxygen Delivery Method Room Air Intake Visit Reasons: CPE, paperwork, f/u diabetes + chronic conditions Intake Note: Patient is here for physical, paerwork for disability, and follow up on chronic conditions. Allergies erythromycin base Allergy (Mild, Verified 07/08/23 10:59) Confusion clonidine Adverse Reaction (Severe, Verified 07/08/23 10:59) Vomiting Tobacco use date assessed: 07/08/23 HPI CPE, paperwork, f/u diabetes + chronic conditions HPI Details 48 y/o male presents for a CPE with f/u labs and health maintenance. Also f/u diabetes, hypertension and chronic conditions. Difficulty swallowing and had ordered an MBS. Blood pressure today 112/72. He is on carvedilol 25mg, amlodipine 10mg. No recent labs to review. Last A1c 04/08/23 5.6%. He is on metformin 500mg b.i.d. Pt reports anxiety/depression. Pt reports he first started noticing imbalance a couple months ago. [facility] Medical History Obesity (BMI 30-39.9) COPD (chronic obstructive pulmonary disease) KELSY on CPAP Morbid obesity Torn rotator cuff Diabetes High cholesterol Hypertension Surgical History Stented coronary artery History of carpal tunnel surgery Social History Housing: House Patient Tobacco Use Status: Former Tobacco user e-Cigarette/Vaping Use: Never Used Second Hand Smoke Exposure: No service: No Current occupational status: unemployed Current occupational exposures/hazards: No Cognitive needs: No Hearing needs: No Vision needs: No Questionnaire PHQ-9 Over the last 2 weeks, how often have you been bothered by any of the following problems? 1. Little interest or pleasure in doing things: nearly every day 2. Feeling down, depressed, or hopeless: nearly every day 3. Trouble falling or staying asleep, or sleeping too much: nearly every day 4. Feeling tired or having little energy: nearly every day 5. Poor appetite or overeating: nearly every day 6. Feeling bad about yourself - or that you are a failure or have let yourself or your family down: nearly every day 7. Trouble concentrating on things, such as reading the newspaper or watching television: nearly every day 8. Moving or speaking so slowly that other people could have noticed. Or the opposite - being so fidgety or restless that you have been moving around a lot more than usual: nearly every day 9. Thoughts that you would be better off or of hurting yourself in some way: nearly every day Total score: 27 Depression Screening Interpretation: Positive Depression Screening Done: Yes Source: Developed by Drs. Arnoldo Carreno, Dyan Edwards, Alvarez Jose and colleagues, with an educational shanna from [employer]. Thrive Questionnaire Date Thrive assessed: 06/16/22 LAMBERTO-7 AMB Questionnaire LAMBERTO-7 Date LAMBERTO - 7 assessed: 07/08/23 Feeling nervous, anxious, or on edge: 3 = Nearly every day Not being able to stop or control worryin = Nearly every day Worrying too much about different things: 3 = Nearly every day Trouble relaxin = Nearly every day Being so restless that it is hard to sit still: 3 = Nearly every day Becoming easily annoyed or irritable: 3 = Nearly every day Feeling afraid as if something awful might happen: 1 = Several days Total LAMBERTO-7 score (0-4 normal; 5-9 mild; 10-14 moderate; 15-21 severe): 19 Source: Developed by Drs. Arnoldo Carreno, Dyan Edwards, Alvarez Jose and colleagues, with an educational shanna from [employer]. Review of Systems Const Denies chills, Denies fatigue, Denies fever(s), Denies headache(s) and Denies weakness Eyes Denies change in vision ENT Denies dizziness, Denies headache(s), Denies hearing loss, Denies nasal congestion, Denies sinus pain, Denies sinus pressure and Denies sore throat Card Reports chest pain, Denies lightheadedness, Denies dyspnea and Denies other (palpitations) Resp Denies cough, Denies dyspnea and Denies wheezing GI Denies abdominal pain, Denies melena, Denies hematochezia, Denies change in bowel habits, Denies dyspepsia and Denies nausea Denies hematuria and Denies dysuria Musc Denies abnormal gait, Denies myalgias, Denies arthralgias, Denies numbness and Denies tingling Skin/Breast Denies rash, Denies unusual bruising and Denies wounds Neuro Denies abnormal gait, Denies dizziness, Denies headache(s), Denies memory loss, Denies numbness, Denies Sensory deficit (Neuro), Denies tingling and Denies weakness Psych Reports anxiety, Reports depression and Denies memory loss Endo Denies cold intolerance, Denies fatigue, Denies heat intolerance, Denies polydi psia and Denies polyuria [place]/Lymph Denies easy bleeding and Denies easy bruising Aller/Immun Denies wheezing Physical exam (Primary Care) Vital Signs: Last Vital Signs Pulse 88 07/08/23 10:58 BP 112/72 07/08/23 10:58 Pulse Ox 98 07/08/23 10:58 Oxygen Delivery Method Room Air 07/08/23 10:58 BMI result Body Mass Index 36.0 Tobacco/Smoking Status: Tobacco use Status Tobacco use date assessed 07/08/23 07/08/23 11:00 Patient Tobacco Use Status Former Tobacco user 07/08/23 11:00 e-Cigarette/Vaping Use Never Used 07/08/23 11:00 PHQ-9: PHQ-9 Score PHQ-9: Total score 27 07/08/23 11:23 Depression Screening Interpretation: Positive Thrive Assessment: Date of Thrive Assessment Date Thrive assessed 06/16/22 07/08/23 11:00 Const General: no acute distress, well developed, alert and awake Nutritional Appearance: well nourished Orientation/consciousness: patient oriented x3 HENMT Head: Yes normocephalic and Yes atraumatic Ears: hearing grossly normal bilaterally and TM's normal bilaterally General nose exam: Normal external nose present and Normal nares present Mouth: Normal oral and palatal mucosa present and moist mucous membranes Teeth and gingiva: dentition normal Throat: Yes posterior oropharynx normal Eyes General: appearance normal, both eyes and all related structures Pupils: Equal, round and reactive pupils present and Pupil accommodation reflex normal EOM: EOMs intact bilaterally Neck Neck: Yes normal visual inspection, Yes no lymphadenopathy and Yes trachea midline Thyroid: Thyroid normal Carotids: no bruits Lymphatic: no lymphadenopathy noted Chest Chest palpation & inspection: normal inspection of the chest Resp Effort & Inspection: normal respiratory effort Auscultation: clear to auscultation bilaterally Cardio Rate: regular rate Rhythm: regular rhythm Heart sounds: S1 normal heart sound present, S2 normal heart sound present, no gallops, no murmurs and no rubs Bruits: no abdominal aortic bruits and no carotid bruits GI Palpation (GI): No Abdominal aortic bruit present, Soft to palpation, nontender, No hepatosplenomegaly present and No Rebound tenderness present Auscultation: normal bowel sounds General: Yes no CVA tenderness Back/Spine/Pelvis Back: no CVA tenderness Cervical Spine: cervical ROM normal and No Cervical spine tenderness Thoracic/Lumbar Spine: thoraco-lumbar ROM normal, No pain with thoraco-lumbar ROM, No thoracic spinal tenderness and No lumbar spinal tenderness Skin Lesions: no lesions Rashes: no rashes Trauma: no lacerations or abrasions Wounds: no wounds Nails: normal Neuro General: patient oriented x3 Cranial nerves: Yes Equal, round and reactive pupils present Cognition (Neuro): normal cognition Gait exam (Neuro): Normal gait present Motor exam (neuro): 5/5 motor strength present throughout Sensory Exam: No Sensory deficit (Neuro) Deep tendon reflexes (DTR's): Right patellar reflex intensity grade: 2+ and Left patellar reflex intensity grade: 2+ Extrem General: Yes normal to inspection and No edema Psych Appearance: grossly normal Affect: normal affect Attitude: cooperative Thought process: Normal thought process present Results AMB Hemoglobin A1c AMB Hemoglobin A1c 5.3 % Last Edit by Oralia Lobo CMA on 07/08/23 12:15 Assessment and Plan Assessment & Plan (1) Adult general medical exam: Code(s): Z00.00 - Encounter for general adult medical examination without abnormal findings Plan: 48-year-old?male?presents?for?complete?physical?exam (2) Hypertension: Code(s): I10 - Essential (primary) hypertension Plan: Blood?pressure?is?controlled.??Goal?is?less?than?130/80 Continue?current?medication (3) Coronary artery disease: Code(s): I25.10 - Atherosclerotic heart disease of [place] coronary artery without angina pectoris Plan: Patient?has?appointment?with?his?[place]ag[place] heater?tomorrow Follow-up?with?Cardiology?as?recommended (4) Anxiety with depression: Code(s): F41.8 - Other specified anxiety disorders Plan: Rather?severe?anxiety?and?depression.??He?has?a?therapist Therapist?is?working?on?disability?paperwork (5) Hyperlipidemia: Code(s): E78.5 - Hyperlipidemia, unspecified Plan: Has?not?had?lipids?checked?in?about?a?year. Check?lipid (6) Chest discomfort: Code(s): R07.89 - Other chest pain Plan: As?above,?patient?has?an?appointment?with?his?[place] heater?tomorrow. (7) Diabetes: Code(s): E11.9 - Type 2 diabetes mellitus without complications Plan: A1c?shows?good?control.??Goal?is?less?than?7.0% Continue?current?medication (8) Imbalance: Code(s): R26.89 - Other abnormalities of gait and mobility Plan: Unsteady?gait?and?imbalance No?dizziness Likely?secondary?t o?neuropathy?in?lower?extremities?as?well?as?osteoarthritis?and?some?decondition ing Will?start?physical?therapy.??If?not?improving?will?refer?to?Neurology (9) Unsteady gait: Code(s): R26.81 - Unsteadiness on feet Plan: As?above (10) Difficulty swallowing: Comment: Non invasive follow- awaiting cardiac/ pulmonary consults. Code(s): R13.10 - Dysphagia, unspecified Plan: Will?refer?to?ENT Had?ordered?MBS?but?he?has?not?had?this?done?yet?and?I?will?ask?the?office?to? carey?on?the?status (11) Screening for prostate cancer: Code(s): Z12.5 - Encounter for screening for malignant neoplasm of prostate Plan: Check?PSA (12) Screening for colon cancer: Code(s): Z12.11 - Encounter for screening for malignant neoplasm of colon Plan: Followed?by?Gastroenterology Will?refer?for?colonoscopy (13) Carpal tunnel syndrome: Code(s): G56.00 - Carpal tunnel syndrome, unspecified upper limb Plan: Continue?bilateral?wrist?braces Follow-up?with?Neurology?as?recommended (14) Osteoarthritis of knee: Code(s): M17.9 - Osteoarthritis of knee, unspecified Plan: Advised?he?use?cane?for?stability (15) Decreased visual acuity: Code(s): H54.7 - Unspecified visual loss Plan: Advised?he?follow-up?with?an?missile technician Plan Patient?had?disability?forms. He?says?that?his?primary?disability?is?anxiety?and?depression.??This?form?has?be en?filled?out?by?his?therapist. I?have?filled?out?certification?of?disability?for?his?other?diagnoses. Primarily,?patient?has?severe?osteoarthritis?of?the?knees?and?carpal?tunnel?of?b ilateral?wrists.??Also?has?a?history?of?COPD?and?coronary?artery?disease. Patient?had?some?imbalance?today?and?I?advised?he?use?his?cane?consistently. Orders: Orders Lipid Panel Today Z00.00 - Encounter for general adult medical examination without abnormal findings TSH reflex Free T4 Today Z00.00 - Encounter for general adult medical examination without abnormal findings AMB Hemoglobin A1c Today Z13.9 - Encounter for screening, unspecified Comprehensive [place]. Panel Fast Today Z00.00 - Encounter for general adult medical examination without abnormal findings Complete Blood Count Auto Diff Today Z00.00 - Encounter for general adult medical examination without abnormal findings Microalbumin, Random (w Creat) Today I10 - Essential (primary) hypertension Prostate Specific Antigen Scr Today Z12.5 - Encounter for screening for malignant neoplasm of prostate UA and rflx microscopic Today Z00.00 - Encounter for general adult medical examination without abnormal findings PT Evaluation and Treatment Today M17.9 - Osteoarthritis of knee, unspecified, M79.2 - Neuralgia and neuritis, unspecified, R26.81 - Unsteadiness on feet, R26.89 - Other abnormalities of gait and mobility Referrals Ear/Nose/Throat Referral R13.10 - Dysphagia, unspecified Coding Level of Care Code Est Pt Level 4 (08752) Est Pt Prev Care 40-64y(78281) Diagnoses Adult general medical exam Z00.00 Hypertension I10 Coronary artery disease I25.10 Anxiety with depression F41.8 Hyperlipidemia E78.5 Chest discomfort R07.89 Diabetes E11.9 Imbalance R26.89 Unsteady gait R26.81 Difficulty swallowing R13.10 Screening for prostate cancer Z12.5 Screening for colon cancer Z12.11 Carpal tunnel syndrome G56.00 Osteoarthritis of knee M17.9 Decreased visual acuity H54.7
[2023-07-08 10:58] VITALS: BP 112/72; PULSE 88; O2SAT 98; BMI 36.0
== END 2023-07-08 12:22 | disposition home or self-care (01) ==
PROVIDERS: PCP Family Medicine; Visit Provider Family Medicine
DX: E11.9 Type 2 diabetes mellitus without complications (principal)
CPT/HCPCS: 83036; 99396

== ENCOUNTER 2023-07-21 13:35 | Outpatient (AMB) | payer OTHER, SELFPAY ==
--- NOTE | 2023-07-21 13:42 | MHC.OFFVIS ---
Intake Vital Signs 07/21/23 13:44 Height 6 ft Weight 252 lb 3.341 oz BMI 34.2 BP 114/72 Blood Pressure Location Lt brachial Position Sitting Pulse 84 Pulse Source Pulse Oximeter Intake Visit Reasons: 6 month f/u NS Allergies erythromycin base Allergy (Mild, Verified 07/21/23 13:44) Confusion clonidine Adverse Reaction (Severe, Verified 07/21/23 13:44) Vomiting Medication List - Last Reconciled 07/21/23 by Daisha Lopez NP-C amitriptyline 50 mg PO BEDTIME amlodipine 10 mg PO DAILY 90 days aripiprazole 5 mg PO DAILY 90 days aspirin (Adult Low Dose Aspirin) 81 mg PO DAILY 90 days atorvastatin 80 mg PO DAILY 90 days bupropion HCl 150 mg PO QAM 90 days bupropion HCl 300 mg PO DAILY 90 days carvedilol 25 mg PO Q12H 90 days cholecalciferol (vitamin D3) 25 mcg PO DAILY 90 days clopidogrel 75 mg PO DAILY 90 days cyanocobalamin (vitamin B-12) 1,000 mcg PO DAILY 90 days duloxetine 30 mg PO DAILY 90 days escitalopram oxalate 5 mg PO DAILY gabapentin 300 mg PO TID 30 days hydroxyzine HCl 25 mg PO BID 30 days indomethacin 25 mg PO BID 30 days ipratropium-albuterol 20-100 mcg/actuation (Combivent Respimat) 1 puff inhalation Q6H 90 days isosorbide mononitrate ER 30 mg PO DAILY 90 days loratadine 10 mg PO DAILY 90 days metformin 500 mg PO BID 90 days nystatin 5 mL PO DAILY 10 days omeprazole 20 mg PO BID pramipexole 0.5 mg PO BEDTIME 30 days tamsulosin 0.4 mg PO DAILY 90 days topiramate 100 mg PO DAILY triamcinolone acetonide 0.1% 1 appl topical DAILY 30 days umeclidinium-vilanterol 62.5-25 mcg/actuation (Anoro Ellipta) 1 inh inhalation Q24H 30 days HPI 6 month f/u NS HPI Details Mina is a 48-year-old male past medical history of hypertension, hyperlipidemia, diabetes, CAD with PCI to the LAD in 2019, obesity, obstructive sleep apnea with CPAP use who presents for follow-up. Today he reports that he continues to have the same type of sharp chest discomfort to left chest region as he reported on last visit in December. Tells me the symptom has not gotten worse or increased in frequency or severity. It occurs randomly mostly with him at rest. He admits to being mostly sedentary and is limited by his orthopedic issues. He describes having back and knee problems and is now ambulating with a cane. He is wearing braces on each wrist well. No concerning shortness of breath, palpitations, presyncope, syncope, PND, orthopnea or edema. He takes his meds as directed. [facility] Medical History Obesity (BMI 30-39.9) COPD (chronic obstructive pulmonary disease) KELSY on CPAP Morbid obesity Torn rotator cuff Diabetes High cholesterol Hypertension Surgical History Stented coronary artery History of carpal tunnel surgery Social History Housing: House Patient Tobacco Use Status: Former Tobacco user e-Cigarette/Vaping Use: Never Used Second Hand Smoke Exposure: No service: No Current occupational status: unemployed Current occupational exposures/hazards: No Cognitive needs: No Hearing needs: No Vision needs: No Review of Systems Const All systems reviewed & are unremarkable except as noted in HPI and below ENT Reports dizziness Card Reports chest pain, Denies chest pain at rest, Denies chest pain with activity, Denies rapid heart rate, Denies pedal edema, Denies edema, Denies leg edema, Denies lightheadedness, Denies palpitations, Denies dyspnea, Denies dyspnea on exertion and Denies orthopnea Resp Denies cough, Denies dyspnea and Denies dyspnea on exertion GI Denies hematochezia and Denies change in stool character Musc Reports abnormal gait, Reports limited range of motion, Denies muscle cramps, Reports muscle weakness, Denies numbness, Denies radiating pain into limb, Denies stiffness and Denies tingling Neuro Reports abnormal gait, Reports dizziness, Denies numbness and Denies tingling Endo Denies palpitations Physical Exam Vital Signs: Last Vital Signs Pulse 84 07/21/23 13:44 BP 114/72 07/21/23 13:44 BMI result Body Mass Index 34.2 Const General: comfortable and no acute distress Orientation/consciousness: patient oriented x3 Neck Neck: Yes normal visual inspection Resp Effort & Inspection: normal respiratory effort Auscultation: clear to auscultation bilaterally, no crackles, no rales, no rhonchi and no wheezes Cardio Jugular venous distension: no JVD Rate: regular rate Rhythm: regular rhythm Heart sounds: S1 normal heart sound present, S2 normal heart sound present, no murmurs and no rubs Neuro General: patient oriented x3 Extrem General: Yes normal to inspection Psych Appearance: grossly normal Mental Status: mental status grossly normal Speech and movement: Normal speech and movement present Office Procedures EKG Details: Today, read by me, sinus rhythm with first-degree AV block, rate 73, QTC 423 milliseconds [id number], Complete Assessment & Plan Assessment & Plan (1) Chest discomfort: Code(s): R07.89 - Other chest pain Plan: Continues to have Reports of atypical sounding chest discomfort.- no increase in severity or frequency in the last 6 months. History of CAD with PCI to the LAD in 2019. Multiple cardiac risk factors including hypertension, hyperlipidemia, diabetes, obesity, sedentary. Echocardiogram done 11/21/2022 shows EF 55-60%, no regional wall motion abnormality. Nuclear stress test done 12/10/2022 using Lexiscan showed normal myocardial perfusion imaging, EF greater than 70%. Reviewed results with him. He expresses frustration that he has this symptom and there was no answer. He does have a torn rotator cuff which can contribute to symptoms he is describing. Offered reassurance that his symptom does not sound cardiac in nature as it occurs randomly only lasts 5 seconds at a time. Signs and symptoms of angina discussed. Continue on current medical management for stable CAD including aspirin, carvedilol, atorvastatin, amlodipine.. He remains on Plavix and will check with his primary movie operator regarding discontinuing. Cardiology office visit in 6 months, sooner if needed. ED care if ever needed for symptoms. (2) Coronary artery disease: Code(s): I25.10 - Atherosclerotic heart disease of [place] coronary artery without angina pectoris Plan: As above (3) Stented coronary artery: Comment: Drug-eluting stent to mid LAD, 3 by 15 mm Resolute. February 2019, for new onset angina and abnormal stress test. Repeat cardiac catheterization, July 2019 for atypical chest pain showed nonobstructive disease Code(s): Z95.5 - Presence of coronary angioplasty implant and graft Plan: As above (4) Hyperlipidemia: Code(s): E78.5 - Hyperlipidemia, unspecified Plan: [place] LDL goal less than 70. Labs done 05/12/2022 shows LDL 65. He remains on high-dose atorvastatin. Will plan for fasting lipid profile with next lab draw -order is in place (5) Hypertension: Code(s): I10 - Essential (primary) hypertension Plan: Blood pressure well controlled at present time. No medication changes made. Continue amlodipine, carvedilol. Coding Level of Care Code Est Pt Level 4 (59238) Diagnoses Chest discomfort R07.89 Coronary artery disease I25.10 Stented coronary artery Z95.5 Hyperlipidemia E78.5 Hypertension I10 CPT Codes EKG - CPT: [id number], Complete ([id number]) Time Spent (min) 30
[2023-07-21 13:44] VITALS: BP 114/72; PULSE 84; BMI 34.2
== END 2023-07-21 14:25 | disposition home or self-care (01) ==
PROVIDERS: PCP Family Medicine; Visit Provider Nurse Practitioner Family
DX: R07.89 Other chest pain (principal); I25.10 Atherosclerotic heart disease of native coronary artery without angina pectoris; Z95.5 Presence of coronary angioplasty implant and graft; E78.5 Hyperlipidemia, unspecified; I10 Essential (primary) hypertension
CPT/HCPCS: 93010; 99214

== ENCOUNTER → 2023-07-21 13:35 | Outpatient (BNVA) | payer OTHER, SELFPAY | PROVIDERS: PCP Family Medicine; Visit Provider Nurse Practitioner Family | DX: I25.10 Atherosclerotic heart disease of native coronary artery without angina pectoris (principal); R07.89 Other chest pain; I10 Essential (primary) hypertension; E78.5 Hyperlipidemia, unspecified; Z95.5 Presence of coronary angioplasty implant and graft | CPT/HCPCS: 93005; 99212 ==

== ENCOUNTER 2023-08-19 14:09 | Outpatient (REF) | payer OTHER, SELFPAY ==
--- NOTE | ~2023-08-19 | FL_ITS ---
EXAMINATION: Modified Barium Swallow CLINICAL INFORMATION: Dysphagia COMPARISON: Barium swallow 03/25/2023. TECHNIQUE: Modified barium swallow was performed under lateral fluoroscopy with patient in standing position. Barium mixed with solids and liquids of varying consistencies was administered by the speech pathologist. The exam was recorded in the fluoroscopy suite. FINDINGS: No laryngeal penetration or aspiration was seen during this examination. Number of Spot Images: 1 lateral spot image hold DOSE AREA PRODUCT: 804.9 uGy-m2 (microgray-meter squared) FL/FL barium swallow modified IMPRESSION: No laryngeal penetration or aspiration was seen during this examination. Refer to the speech therapy report for further clarification This procedure was performed by Roger Littlejohn PA-C, and supervised by Dr. Meyer
--- NOTE | 2023-08-19 16:51 | MHC.SL.IMP ---
Date of Plan of Treatment: 08/19/23 Onset of Symptoms/Illness: 04/08/23 Date Treatment Started: 08/19/23 Admitting Diagnosis: Dysphagia Primary Speech & Language Diagnosis: R13.14 Pharyngoesophageal Phase Dysphagia Reason for Today's Visit: 36581 Modified Barium Swallow Study Pre-evaluation Dietary Consistencies: Regular Pre-evaluation Liquid Consistency: Thin Pre-evaluation Medication Administration: Whole with Liquid Medical History: Modified Barium Swallow Study Fluoroscopic Evaluation of Swallowing Function CPT Code 83644 Evaluation Year: 2023 Reason for Study: Pt reporting difficulty swallowing. Referring Physician: Leland Trujillo MD Evaluating Clinician: Payal Kelsey MA, CCC-MACHINE BUNCH MAKER Study Number: 1 Patient Name: Mina Lopes Status: Outpatient, Ambulatory/Assisted Age: 48 Gender: Male Medical History Obesity, COPD, KELSY on CPAP, torn rotator cuff, diabetes, high cholesterol, hypertension Current (pre-evaluation) Intake/Diet: Route: PO Diet Grade: Regular Liquid Consistencies: Thin Pre-Study Functional Oral Intake Scale (FOIS): 7- Total oral intake with no restrictions Pain: Chronic/Ongoing reported at time of study, Throat, rated 2 on scale 0-10 SUBJECTIVE: Pt is a 48 year old male with history of COPD and KELSY on CPAP, referred for a modified barium swallow study by Leland Trujillo MD due to the pt?s reports of having trouble swallowing. Pt reports that food feels ?stuck in [his] throat,? which sometimes causes him to experience some pain when he is ?trying to get it down.? Pt says he drinks a gallon of water or milk with meals, taking sips after each bite, which seems to help. Pt reports having the most trouble with certain foods, including sandwiches, crackers, and donuts. Pt did have a barium swallow study done in February 2023 which revealed esophageal hypomotility with some delay in the transit of solid food, most prominently in the cervical esophagus. Oral Motor Exam Facial Symmetry: Symmetrical Mouth Occlusion: Normal Oral-Facial Teeth Characteristics: Intact/Normal Oral-Facial Smile (Lips) Description: Normal Oral-Facial Puff Cheeks Description: Normal Tongue Size: Normal Tongue Excursion Description: Normal Tongue Range of Movement Description: Normal Tongue Speed of Movement Description: Normal Tongue Strength of Movement (against opposing pressure): Normal Tongue Movement Characteristics: Normal/Absent Food and Liquid Trials: Oral Impairment: Lip Closure: Did not test Oral Impairment: Tongue Control During Bolus Hold: 0=Cohesive bolus between tongue to palatal seal Oral Impairment: Bolus Preparation/Mastication: 0=Timely and efficient chewing and mashing Oral Impairment: Bolus Transport/Lingual Motion: 1= Delayed initiation of tongue motion Oral Impairment: Oral Residue: 2=Residue collection on oral structures Oral Impairment:Initiation of Pharyngeal Swallow: 2=Bolus head at posterior laryngeal surface of epiglottis Pharyngeal Impairment: Soft Palate Elevation: 0=No bolus between soft palate (SP)/pharyngeal wall (PW) Pharyngeal Impairment: Laryngeal Elevation: 1=Partial thyroid cartilage/arytenoids to epiglottic petiole movement Pharyngeal Impairment: Anterior Hyoid Excursion: 1=Partial anterior movement Pharyngeal Impairment: Epiglottic Movement: 0=Complete inversion Pharyngeal Impairment: Laryngeal Vestibular Closure:: 0=Complete: no air/contrast in laryngeal vestibule Pharyngeal Impairment: Pharyngeal Stripping Wave: 1=Present: diminished Pharyngeal Impairment: Pharyngeal Contraction: Did not test Pharyngeal Impairment: Pharyngoesophageal Segment Openin=Minimal distension/minimal duration: marked obstruction of flow Pharyngeal Impairment: Tongue Base (TB) Retraction: 2=Narrow column of contrast/air between TB and posterior PW Pharyngeal Impairment: Pharyngeal Residue: 2=Collection of residue within or on pharyngeal structures Pharyngeal Impairment: Esophageal Clearance Upright Position: Did not test Impressions and Recommendations OBJECTIVE: Time-out: performed at 14:45 Evaluation Start: 14:30; Stop: 14:35 Patient Positioning: Standing Viewing Planes: LATERAL ONLY Contrast: MBSImP? Standardized Protocol using commercially prepared, standardized Barium viscosities, including: Varibar? THIN LIQUID (40% w/v, <15 cps) , 1/2 Shortbread Cookie (1 x1 x.25 ) MBSImP ID: [id number] MBSImP Results: Lip closure for intraoral bolus containment could not be assessed due to logistical reasons not related to physiologic impairment. Tongue control during bolus hold maintained a cohesive bolus held between tongue to palate seal. Bolus preparation and mastication resulted in timely and efficient chewing and mashing. Bolus transport/lingual motion demonstrated delayed initiation of tongue motion. Oral residue was a collection on oral structures. Initiation of the pharyngeal swallow occurred as the bolus head was at the posterior laryngeal surface of the epiglottis. Soft palate elevation resulted in no bolus between the soft palate and the pharyngeal wall. Laryngeal elevation was decreased, with partial superior movement of the thyroid cartilage/partial approximation of the arytenoids to the epiglottic petiole. Anterior hyoid excursion demonstrated partial anterior movement. Epiglottic movement resulted in complete inversion. Laryngeal vestibular closure was complete, as indicated by no air or contrast within the laryngeal vestibule at the height of the swallow. Pharyngeal stripping wave was present, but diminished. Pharyngeal contraction could not be determined due to logistical reasons not related to physiologic impairment. Pharyngoesophageal segment opening demonstrated minimal distension/minimal duration, with marked obstruction of bolus flow. Tongue base retraction allowed a narrow column of contrast or air between the retracted tongue base and the posterior pharyngeal wall. Pharyngeal residue was a collection of residue within or on pharyngeal structures. Esophageal clearance in the upright position could not be assessed due to logistical reasons not related to physiologic impairment. Oral Impairment Score: 5 (absence of score, component 1) Pharyngeal Impairment Score: 9 (absence of score, component 13) Esophageal Impairment Score: --- (absence of score, component 17) Laryngeal Penetration and Aspiration: Neither penetration nor aspiration was observed in today's study with Cookie, Thin. ASSESSMENT: The patient's performance in today's study indicated impairment in swallowing as outlined in the table below: -Pharyngeal segment opening contributed to pharyngeal residue Clinician Assessment: This exam was performed by the speech pathologist and radiologist. Pt was standing for lateral view. He was able to feed himself, trialing the following consistencies: -thin liquid barium (5 mL, individual cup sips, sequential cup sips) -pureed solid (applesauce mixed with barium paste) -regular texture solid (Edie Doone cookie coated with barium paste). Unable to visualize labial seal with imaging. Clinically, pt appeared to contain bolus well and did not have any anterior spillage beyond the yves border. Posterior lingual motion for bolus transport was mildly delayed in initiation, but with brisk movement. Mastication was timely and efficient. On both solids and liquids, there was mild residue coating the tongue, palate, and the floor of mouth post-swallow, which cleared with additional swallows. Pharyngeal swallow trigger initiated as the bolus head reached the posterior laryngeal surface of the epiglottis. There was no nasopharyngeal reflux. Incomplete laryngeal elevation. Complete epiglottic inversion and complete laryngeal vestibular closure. No evidence of aspiration or penetration during this exam. There was retention in the valleculae and pyriforms to a mild degree with intake of liquids and purees, moderate retention with regular solid texture. Also noted marked obstruction of flow through the pharyngoesophageal segment opening (PES), which pt was able to mostly clear when immediately following with sips of liquid. Pt repeated trials of regular texture solid and evidenced moderate pharyngeal retention, which again mostly cleared when pt followed with sips of liquid. Liquid Intake Recommendation: Thin Liquid Intake Strategies: Small Sips, Double Swallow Dietary Recommendations: Regular Medication Administration: Crushed with Puree Please contact the pharmacy regarding appropriate crushable or liquid drug formulations that are available whenever modified delivery is recommended. Compensatory Strategies Recommended: Sitting Upright (90 deg), Small Bites and Sips, Alternate Liquids/Solids, Rate of Ingestion Change, Avoid Specific Foods Supervision during eating and or drinking: None Needed Recommendation for Speech Therapy: NA:Typical Evaluation Intake Recommendations: Route: PO Diet Grade: Regular Liquid Consistencies: Thin Post-Study Functional Oral Intake Scale (FOIS): 6- Total oral intake with no special preparation, but must avoid specific foods or liquid items Posterior lingual movement was mildly delayed, oral phase was otherwise unremarkable and mastication was timely and efficient. Mild oral residuals cleared with subsequent swallows. Incomplete laryngeal elevation. No evidence of aspiration or penetration during this exam. There was mild to moderate pharyngeal retention, especially in the pyriform sinsues, and noted marked obstruction of flow through the PES with solids, which pt was able to clear with a liquid wash. Pt is recommended strategies for esophageal phase dysphagia- take small bites, chew food well, alternate each bite of food with sips of liquid, maintain upright position while eating or drinking and for at least 60 minutes afterwards. Pt did have a recent barium swallow study which revealed esophageal hypomotility and also self-reported history of GERD. He is recommended consultation with Gastroenterology. These recommendations were discussed with pt at the conclusion of this exam. Pt denied having any questions at this time. He is encouraged to contact [facility] should MACHINE BUNCH MAKER be of further assistance. Recommend pt to continue monitoring his dysphagia. If pt experiences any changes or worsening of symptoms, a repeat-evaluation may be indicated. Therapy Recommendations: Therapy will be discontinued at this time The following compensatory strategies and/or therapeutic exercises will be part of the upcoming therapy/management plan: Liquid Wash Clinician - Supplemental, Miscellaneous Communication: It is important to note MBSS objective studies are snapshots in time and Patient function might vary with factors such as time of day or concomitant medical conditions. For this reason, the final treatment plan for this patient should rest with their medical care team. Additional recommendations should be considered with the totality of the Patient in mind. Thank for the opportunity to participate in the care of this patient. If you have any questions about the content of this report, please contact the [facility] at [facility]. Education: Education regarding findings from today's study and plans for therapy were provided to Patient only through Verbal Instruction. Understanding was expressed by the Patient only. Tube Backer Clinician/Clinical Fellow: No Supervisory Statement: N/A Speech Language Pathologist: Payal Kelsey M.A., CCC-MACHINE BUNCH MAKER
== END 2023-08-19 14:10 | disposition home or self-care (01) ==
LOC: HO.XRAY 14:09
PROVIDERS: PCP Family Medicine; Visit Provider Family Medicine
DX: R13.10 Dysphagia, unspecified (principal)
CPT/HCPCS: 74230; 92611

== ENCOUNTER → 2023-08-19 14:10 | Outpatient (BNV) | payer OTHER, SELFPAY | PROVIDERS: PCP Family Medicine; Visit Provider Physician Assistant Surgical | DX: R13.10 Dysphagia, unspecified (principal) | CPT/HCPCS: 74230 ==

== ENCOUNTER 2023-09-02 10:40 | Outpatient (REF) | payer OTHER, SELFPAY ==
[2023-09-02 10:55] LABS: MANUAL DIFF FLAG NO
[2023-09-02 11:29] LABS: Basophils Absolute Auto 0.1 X10*3/uL (0.0-0.2); Basophils Percent Auto 0.9 % (0-2); Eosinophils Absolute Auto 0.1 X10*3/uL (0.0-0.4); Eosinophils Percent Auto 1.4 % (0-4); Hematocrit 43.1 % (42.0-52.0); Hemoglobin 14.2 g/dl (14.0-18.0); Imm Gran Abs Auto 0.03 X10*3/uL (0.00-0.03); Imm Gran Pct Auto 0.5 % (0.0-0.4); Lymphocytes Absolute Auto 1.8 X10*3/uL (1.2-4.9); Lymphocytes Percent Auto 27.5 % (20-40); Mean Corpuscular HGB Conc 32.9 g/dl (31.0-36.0); Mean Corpuscular Hemoglobin 29.3 pg (27.0-33.0); Mean Platelet Volume 10.4 fL (9.4-12.4); Monocytes Absolute Auto 0.6 X10*3/uL (0.1-1.2); Neutrophils Percent Auto 60.7 % (45-73); Platelet Count 194 X10*3/uL (160-400); Red Blood Count 4.84 X10*6/uL (4.60-5.80); Red Cell Distribution Width 12.9 % (11.0-16.0); White Blood Count 6.5 X10*3/uL (4.8-10.8)
[2023-09-02 11:31] LABS: Appearance Urine Clear; Color Urine Yellow; Glucose Urine UA Negative (Negative); Leukocyte Esterase Urine Negative (Negative); Nitrite Urine Negative (Negative); PH 7.5 (5.0-9.0); Specific Gravity - Urine <= 1.005 (1.005-1.025); Urine Blood Negative (Negative); Urine Ketones Negative (Negative); Urine Protein Negative (Neg-Trace)
[2023-09-02 12:37] LABS: Creatinine Urine 24.65 mg/dL; Microalbumin Urine < 5.0 mg/L
[2023-09-02 12:53] LABS: Alanine Aminotransferase 15 U/L (0-40); Albumin Level 4.3 g/dL (3.5-5.0); Alkaline Phosphatase 91 U/L (39-117); Anion Gap 10 (12-20); Aspartate Amino Transferase 16 U/L (5-37); Bilirubin Total 0.3 mg/dL (0.0-1.0); Blood Urea Nitrogen 18 mg/dL (9-16); Carbon Dioxide 26 mmol/L (22-29); Chloride 109 mmol/L (96-108); Cholesterol 154 mg/dL (<200); Estimated Glomerular Filt Rate > 60; Glucose Fasting 117 mg/dL (60-99); HDL Cholesterol 35 mg/dL (>40); LDL Cholesterol Calculated 54 mg/dL (<100); Potassium 4.5 mmol/L (3.3-5.1); Sodium 140 mmol/L (135-145); Total Protein 7.5 g/dL (6.5-8.0); Triglycerides 329 mg/dL (<150)
[2023-09-02 13:15] LABS: TSH reflex Free T4 1.14 uIU/mL (0.32-4.0)
== END 2023-09-02 10:41 | disposition home or self-care (01) ==
LOC: HO.LAB 10:40
PROVIDERS: Visit Provider Family Medicine
DX: Z00.00 Encounter for general adult medical examination without abnormal findings (principal); Z12.5 Encounter for screening for malignant neoplasm of prostate; I10 Essential (primary) hypertension
CPT/HCPCS: 36415; 80053; 80061; 81003; 82043; 82570; 84153; 84443; 85025

== ENCOUNTER 2023-09-22 12:47 | Outpatient (AMB) | payer OTHER, SELFPAY ==
--- NOTE | 2023-09-22 13:03 | A.OFFVIS_ITS ---
Intake Vital Signs 09/22/23 13:05 Height 6 ft Weight 252 lb BMI 34.2 Intake Visit Reasons: OV - left knee OA, last inj 04/07/23 Intake Note: Mina is 48 year old male who presents today for a follow up for his left knee OA, last injection 04/07/23. Patient reports his pain has gotten worse after getting the injection. He states that his pain is on the whole knee, he feels a lot of pressure. Allergies erythromycin base Allergy (Mild, Verified 09/22/23 13:04) Confusion clonidine Adverse Reaction (Severe, Verified 09/22/23 13:04) Vomiting HPI OV - left knee OA, last inj 04/07/23 HPI Details 48-year-old male who presents in the off ice today for a follow up of left knee pain. I last saw the patient in the office on 04/07/2023 when he received a cortisone injection in the left knee. The patient reports in the office today that his pain increased after his injection. He reports pain through out the entire knee and states he feels a lot of pressure. Patient has a surgical history of left knee in 06/2020, unclear what procedure was performed. Patient has a significant medical history of diabetes mellitus. [facility] Medical History Obesity (BMI 30-39.9) COPD (chronic obstructive pulmonary disease) KELSY on CPAP Morbid obesity Torn rotator cuff Diabetes High cholesterol Hypertension Surgical History Stented coronary artery History of carpal tunnel surgery Social History Housing: House Patient Tobacco Use Status: Former Tobacco user e-Cigarette/Vaping Use: Never Used Second Hand Smoke Exposure: No service: No Current occupational status: unemployed Current occupational exposures/hazards: No Cognitive needs: No Hearing needs: No Vision needs: No Review of Systems Const All systems reviewed & are unremarkable except as noted in HPI and below Physical Exam Vital Signs: BMI result Body Mass Index 34.2 Const General: cooperative, healthy appearing and no acute distress Resp Effort & Inspection: normal respiratory effort and able to speak in complete sentences Cardio Rate: regular rate Peripheral pulses: Peripheral pulses 2+ throughout GI Palpation (GI): Soft to palpation Skin Lesions: no lesions Rashes: no rashes Extrem Other: Left knee: Normal to inspection. No ecchymosis, erythema, or joint effusion. Tenderness to palpation to the medial or lateral joint lines. Full knee extension and flexion. Negative Kalpana's. NVI. Assessment & Plan Assessment & Plan (1) Osteoarthritis of left knee: Code(s): M17.12 - Unilateral primary osteoarthritis, left knee Qualifiers: Osteoarthritis type: primary Qualified Code(s): M17.12 - Unilateral primary osteoarthritis, left knee (2) Diabetes: Code(s): E11.9 - Type 2 diabetes mellitus without complications Plan Mr. Lopes is a 48-year-old male who presents in the office today for a follow up of left knee pain. I last saw the patient in the office on 04/07/2023 when he received a cortisone injection in the left knee. The patient reports in the office today that his pain increased after his injection. He reports pain through out the entire knee and states he feels a lot of pressure. Patient has a surgical history of left knee in 06/2020, unclear what procedure was performed. Patient has a significant medical history of diabetes mellitus. The injection did not give the patient any relief, but did cause an increase in pain for the following few days. At this point he is requesting an MRI, which I have agreed to order. Follow up will be after the MRI of the left knee is obtained, or sooner if needed. Of note: He is also having a work up for a sudden change in his gait. He now ambulates with the use of a cane. He recently had an MRI of the brain and will be following up with Neurology outpatient. Patient Instructions: Scribed by Megha Kennedy medical staff specialist, for Laverne Rae PA-C on 09/22/2023 at 1:15 pm, EST. Coding Level of Care Code Est Pt Level 4 (01845) Diagnoses Primary osteoarthritis of left knee M17.12 Osteoarthritis type: primary Diabetes E11.9
[2023-09-22 13:05] VITALS: BMI 34.2
== END 2023-09-22 13:32 | disposition home or self-care (01) ==
PROVIDERS: PCP Family Medicine; Visit Provider Physician Assistant
DX: M17.12 Unilateral primary osteoarthritis, left knee (principal); E11.9 Type 2 diabetes mellitus without complications
CPT/HCPCS: 99213

== ENCOUNTER → 2023-09-22 12:47 | Outpatient (BNVA) | payer OTHER, SELFPAY | PROVIDERS: PCP Family Medicine; Visit Provider Physician Assistant | DX: M17.12 Unilateral primary osteoarthritis, left knee (principal); E11.9 Type 2 diabetes mellitus without complications | CPT/HCPCS: 99212 ==

== ENCOUNTER 2023-10-01 10:42 | Outpatient (REF) | payer OTHER, SELFPAY ==
--- NOTE | ~2023-10-01 | MR_ITS ---
EXAMINATION: MR BRAIN WITHOUT CONTRAST CLINICAL INFORMATION: Cerebellar ataxia COMPARISON: None. TECHNIQUE: MRI of the brain was obtained using routine sequences without contrast. FINDINGS: No acute infarct. No acute intracranial hemorrhage or extra-axial fluid collection. The ventricles and sulci are normal in size and configuration without significant volume loss or hydrocephalus. The cerebellum is normal in appearance. Chronic lacunar infarct in the left centrum semiovale and nonspecific T2 FLAIR hyperintense focus in the right amaro radiata. No mass lesion, mass effect, or herniation pattern. Normal intracranial arterial and dural venous sinus flow voids. Normal appearance of the midline structures. The orbits are grossly unremarkable. Proteinaceous retention cysts in the bilateral maxillary sinuses and trace ethmoid air cell mucosal thickening. Trace right mastoid effusion and minimal mucosal thickening in the left inferior mastoid tip. There is a 1.5 x 1.2 cm ovoid T1 hypointense, uniformly T2 hyperintense lesion centered within the left pterygomaxillary fissure with facilitated diffusion on DWI. Normal marrow signal. MR/MR head/brain wo con IMPRESSION: No acute intracranial abnormality. The cerebellum is normal in appearance. Chronic lacunar infarct in the left centrum semiovale. Incidental note of a 1.5 x 1.2 cm ovoid lesion in the left pterygomaxillary fissure, for which differential considerations include a pleomorphic adenoma versus a cystic nerve sheath tumor, amongst other etiologies. ENT consultation advised to guide further management.
== END 2023-10-01 10:43 | disposition home or self-care (01) ==
LOC: HO.MRI 10:42
PROVIDERS: PCP Family Medicine; Visit Provider Psychiatry & Neurology Neurology
DX: G11.9 Hereditary ataxia, unspecified (principal)
CPT/HCPCS: 70551

== ENCOUNTER 2023-10-07 10:31 | Outpatient (AMB) | payer OTHER, SELFPAY ==
[2023-10-07 10:33] VITALS: BP 108/70; PULSE 85; RESP 14; TEMP 36.4; O2SAT 99; BMI 34.5
--- NOTE | 2023-10-07 10:33 | A.OFFPC_ITS ---
Vital Signs 10/07/23 10:33 Height 6 ft Weight 254 lb 4 oz BMI 34.5 BP 108/70 Blood Pressure Location Rt brachial Position Sitting Respiration 14 Pulse 85 Pulse Source Pulse Oximeter Temp 97.6 F Temp Source Temporal Artery Scan Pulse Oximetry (%) 99 Oxygen Delivery Method Room Air Intake Visit Reasons: f/u diabetes and chronic conditions Intake Note: Patient states that he believes left pinkey is getting infected. Tooling Engineering Tech Required: No Accompanied by: Self / Same As Patient Allergies erythromycin base Allergy (Mild, Verified 10/07/23 10:48) Confusion clonidine Adverse Reaction (Severe, Verified 10/07/23 10:48) Vomiting Tobacco use date assessed: 10/07/23 Dental Screening Dental Screen Date: 10/07/23 Did you have a dental visit in the last 12 months?: No Did you have a dental problem in the last 6 months where you did not have access to dental care?: No Was dental information given to patient?: Patient has dentist HPI f/u diabetes and chronic conditions HPI Details 48 y/o male presents to f/u diabetes, hy pertension, labs. Labs were drawn 09/02/23. Reviewed labs with pt. Triglycerides 329. TC 154. LDL 54. HDL low at 35. He is on artovastatin 80mg daily. A1c today 10/07/23 is 5.6%. COUNTS INCLUDE 234 BEDS AT THE [facility] Medical History Obesity (BMI 30-39.9) COPD (chronic obstructive pulmonary disease) KELSY on CPAP Morbid obesity Torn rotator cuff Diabetes High cholesterol Hypertension Surgical History Stented coronary artery History of carpal tunnel surgery Family History (Updated 10/07/23 @ 10:49 by Belem Aponte MA) Other Mental health disorder Substance abuse Social History Housing: House Patient Tobacco Use Status: Former Tobacco user e-Cigarette/Vaping Use: Never Used Second Hand Smoke Exposure: No service: No Current occupational status: unemployed Current occupational exposures/hazards: No Cognitive needs: No Hearing needs: No Vision needs: Yes Questionnaire Thrive Questionnaire Date Thrive assessed: 11/21/22 LAMBERTO-7 AMB Questionnaire LAMBERTO-7 Date LAMBERTO - 7 assessed: 07/08/23 Source: Developed by DrsAnibal Carreno, Dyan Edwards, Alvarez Jose and colleagues, with an educational shanna from [employer]. Physical exam (Primary Care) Vital Signs: Last Vital Signs Temp 97.6 F 10/07/23 10:33 Pulse 85 10/07/23 10:33 Resp 14 10/07/23 10:33 BP 108/70 10/07/23 10:33 Pulse Ox 99 10/07/23 10:33 Oxygen Delivery Method Room Air 10/07/23 10:33 BMI result Body Mass Index 34.5 Tobacco/Smoking Status: Tobacco use Status Tobacco use date assessed 10/07/23 10/07/23 10:50 Patient Tobacco Use Status Former Tobacco user 10/07/23 10:50 e-Cigarette/Vaping Use Never Used 10/07/23 10:50 Thrive Assessment: Date of Thrive Assessment Date Thrive assessed 06/16/22 10/07/23 10:50 Results AMB Hemoglobin A1c AMB Hemoglobin A1c 5.6 % Last Edit by Belem Aponte MA on 10/07/23 10:52 Assessment and Plan Assessment & Plan (1) Hypertension: Code(s): I10 - Essential (primary) hypertension Plan: Blood?pressure?is?well?controlled.??Goal?is?less?than?130/80 Continue?current?medication?regimen (2) Coronary artery disease: Code(s): I25.10 - Atherosclerotic heart disease of [place] coronary artery without angina pectoris Plan: Stable Follow-up?with?Cardiology?as?recommended (3) Hyperlipidemia: Code(s): E78.5 - Hyperlipidemia, unspecified Plan: LDL?cholesterol?is?at?goal?of?less?than?70?for?patient?with?coronary?artery?dise ase However,?triglycerides?are?329?and?HDL?is?low Rosuvastatin?may?improve?these?a?little?while?maintaini ng?good?control?of?his?LDL?and?TC Change?atorvastatin?to?rosuvastatin If?triglycerides?continue?to?rise,?may?need?to?use?fenofibrate (4) Diabetes: Code(s): E11.9 - Type 2 diabetes mellitus without complications Plan: A1c?5.6%.??Goal?is?less?than?7.0%. Control Continue?current?medication Continue?working?at?a?diet?low?in?sugars?and?starches (5) Unsteady gait: Code(s): R26.81 - Unsteadiness on feet Plan: Followed?by?Neurology,? Patient?had?recent?MRI Will?follow?along?after?he?has?seen?. Orders: Orders AMB Hemoglobin A1c Today E11.9 - Type 2 diabetes mellitus without complications Coding Level of Care Code Est Pt Level 4 (37470) Diagnoses Hypertension I10 Coronary artery disease I25.10 Hyperlipidemia E78.5 Diabetes E11.9 Unsteady gait R26.81
== END 2023-10-07 11:03 | disposition home or self-care (01) ==
PROVIDERS: PCP Family Medicine; Visit Provider Family Medicine
DX: I10 Essential (primary) hypertension (principal); E11.69 Type 2 diabetes mellitus with other specified complication; I25.10 Atherosclerotic heart disease of native coronary artery without angina pectoris; E78.5 Hyperlipidemia, unspecified; R26.81 Unsteadiness on feet
CPT/HCPCS: 83036; 99214

== ENCOUNTER 2023-10-20 08:54 | Outpatient (REF) | payer OTHER, SELFPAY ==
--- NOTE | ~2023-10-20 | MR_ITS ---
EXAMINATION: MR KNEE WITHOUT CONTRAST, LEFT CLINICAL INFORMATION: Osteoarthritis of the right knee. COMPARISON: None available. TECHNIQUE: MRI of the knee without contrast was performed using routine sequences on a high-field scanner. FINDINGS: MENISCI: Medial Meniscus: Posterior horn and body of the medial meniscus are diminutive. There is significant blunting of the inner margin of the meniscal body, potentially the result of prior partial meniscectomy. The posterior root is diminutive with a very thin band of residual capsular-sided fibers, likely corresponding to the expected postoperative appearance after partial meniscectomy, though a superimposed posterior root tear is also possible. Lateral Meniscus: Intact LIGAMENTS: Cruciate: Intact Collateral: Intact EXTENSOR MECHANISM: Intact ARTICULAR CARTILAGE/BONE: Patellofemoral Compartment: There is partial-thickness cartilage loss at the inferior aspect of the medial trochlear facet. Patellar cartilage appears normal. Medial Compartment: [id number] nonuniform chondral thinning is present in the medial femoral condyle weightbearing surface and, to a lesser extent, at the medial tibial plateau with foci of full-thickness chondral fissuring, subchondral edema, and small marginal osteophytes. Lateral Compartment: There is focal cartilage loss at the posterior margin of the lateral tibial plateau. Tiny marginal osteophytes. JOINT FLUID AND BURSAE: Small joint effusion. No Carpenter's cyst. MR/MR knee LT wo con IMPRESSION: 1. [id number] medial compartment osteoarthritis. 2. Diminutive posterior horn and body of the medial meniscus, consistent with prior partial meniscectomy. A superimposed radial tear of the posterior root is possible, though less likely. 3. Minimal patellofemoral and lateral compartment osteoarthritis. 4. Small joint effusion.
== END 2023-10-20 08:55 | disposition home or self-care (01) ==
LOC: HO.MRI 08:54
PROVIDERS: PCP Family Medicine; Visit Provider Physician Assistant
DX: M17.12 Unilateral primary osteoarthritis, left knee (principal)
CPT/HCPCS: 73721

== ENCOUNTER 2023-10-27 11:02 | Outpatient (AMB) | payer OTHER, SELFPAY ==
[2023-10-27 11:28] VITALS: BP 122/64; PULSE 76; O2SAT 96; BMI 33.9
--- NOTE | 2023-10-27 11:28 | A.OFFVIS_ITS ---
Intake Vital Signs 10/27/23 11:28 Height 6 ft Weight 250 lb 3.594 oz BMI 33.9 BP 122/64 Blood Pressure Location Lt brachial Position Sitting Pulse 76 Pulse Source Pulse Oximeter Pulse Oximetry (%) 96 Oxygen Delivery Method Room Air Intake Visit Reasons: somnolence Intake Note: pt is here for follow up and is tired all the time, using the cpap when he does not fall asleep in the chair. Catering Assistant Required: No Allergies erythromycin base Allergy (Mild, Verified 10/27/23 11:57) Confusion clonidine Adverse Reaction (Severe, Verified 10/27/23 11:57) Vomiting Medication List - Last Reconciled 10/27/23 by Jessica Wylie MD amitriptyline 50 mg PO BEDTIME amlodipine 10 mg PO DAILY 90 days aripiprazole 5 mg PO DAILY 90 days aspirin (Adult Low Dose Aspirin) 81 mg PO DAILY 90 days bupropion HCl 150 mg PO QAM 90 days bupropion HCl 300 mg PO DAILY 90 days carvedilol 25 mg PO Q12H 90 days cholecalciferol (vitamin D3) 25 mcg PO DAILY 90 days cyanocobalamin (vitamin B-12) 1,000 mcg PO DAILY 90 days duloxetine 30 mg PO DAILY 90 days escitalopram oxalate 5 mg PO DAILY gabapentin 300 mg PO TID 30 days hydroxyzine HCl 25 mg PO TID indomethacin 25 mg PO BID 30 days ipratropium-albuterol 20-100 mcg/actuation (Combivent Respimat) 1 puff inhalation Q6H 90 days ipratropium-albuterol 20-100 mcg/actuation (Combivent Respimat) 1 puff inhalation Q6H PRN isosorbide mononitrate ER 30 mg PO DAILY 90 days loratadine 10 mg PO DAILY 90 days metformin 500 mg PO BID 90 days nystatin 5 mL PO DAILY 10 days omeprazole 20 mg PO BID 90 days pramipexole 0.5 mg PO BEDTIME 30 days rosuvastatin 40 mg PO DAILY 90 days tamsulosin 0.4 mg PO DAILY 90 days topiramate 300 mg PO DAILY triamcinolone acetonide 0.1% 1 appl topical DAILY 30 days umeclidinium-vilanterol 62.5-25 mcg/actuation (Anoro Ellipta) 1 inh inhalation Q24H 30 days Do you need a note to return to daycare/school/sports/work: No HPI somnolence HPI Details DIURETIC, 48 YEARS OLD GENTLEMAN IS A CASE OF OBSTRUCTIVE SLEEP APNEA, AND COPD. HE IS HERE FOR HIS ROUTINE FOLLOW-UP AFTER 4 MONTHS. BREATHING JON HAS REMAINED VERY STABLE. HIS MAIN COMPLAINT IS GETTING SOME SHORTNESS OF BREATH ON WALKING, ESPECIALLY IF HE HAS TO WALK UP HILL OR CLIMBS STAIRS. HE DOES HAVE OCCASIONAL COUGH, NO ATTACKS OF WHEEZING. HE HAS OBSTRUCTIVE SLEEP APNEA WHICH IS CONTROLLED WITH THE USE OF CPAP SOMETIMES HE USES THE CPAP DURING THE DAYTIME WHEN HE SLEEPS IN THE CHAIR. THERE IS SOME AIR LEAK ISSUE, AND HE TRIES TO TIGHTEN THE STRAPS QUITE FREQUENTLY. DIURETIC IS NONSMOKER. [facility] Medical History Obesity (BMI 30-39.9) COPD (chronic obstructive pulmonary disease) KELSY on CPAP Morbid obesity Torn rotator cuff Diabetes High cholesterol Hypertension Surgical History Stented coronary artery History of carpal tunnel surgery Family History Other Mental health disorder Substance abuse Social History Housing: House Patient Tobacco Use Status: Former Tobacco user e-Cigarette/Vaping Use: Never Used Second Hand Smoke Exposure: No service: No Current occupational status: unemployed Current occupational exposures/hazards: No Cognitive needs: No Hearing needs: No Vision needs: Yes Review of Systems Const All systems reviewed & are unremarkable except as noted in HPI and below Eyes Reports no additional complaints ENT Reports no additional complaints Card Denies chest pain, Denies irregular heart rhythm and Denies leg edema Resp Reports as per HPI GI Reports heartburn (GERD symptoms being treated) Reports difficulty urinating and Reports nocturia Musc Reports numbness (Lower extremity) and Reports other (Carpal tunnel syndrome both wrists) Skin/Breast Reports dry skin Neuro Reports numbness (Lower extremity) and Reports restless legs Psych Reports anxiety and Reports depression Endo Reports other (Being treated for diabetes mellitus) Ludin/Lymph Reports no additional complaints Aller/Immun Reports no additional complaints Physical Exam Vital Signs: Last Vital Signs Pulse 76 10/27/23 11:28 BP 122/64 10/27/23 11:28 Pulse Ox 96 10/27/23 11:28 Oxygen Delivery Method Room Air 10/27/23 11:28 BMI result Body Mass Index 33.9 This gentleman is grossly obese, with a round face, and a fat neck. Const General: comfortable, no acute distress, alert and awake Orientation/consciousness: patient oriented x3 HEENT Head: Yes normal to inspection General nose exam: No nasal polyps present and No nasal discharge present Face and sinus: Yes sinuses nontender Mouth: oropharynx normal (Oropharynx is crowded, Mallampati class 4) Throat: Yes posterior oropharynx normal Eyes General: appearance normal, both eyes and all related structures Neck Neck: Yes normal visual inspection, Yes no lymphadenopathy, Yes trachea midline and Yes no JVD Thyroid: Thyroid normal Chest Chest palpation & inspection: normal inspection of the chest, normal palpation of entire chest wall and no tenderness Resp Other: Percussion note not perceptible because of the thick and obese chest wall. Breath sounds are generally distant. especially over the basilar areas No audible wheezes or rhonchi, or crepitations. Cardio Palpation: PMI not normal (Not palpable) Rate: regular rate Rhythm: regular rhythm Heart sounds: no gallops and no murmurs GI Palpation (GI): Soft to palpation, Tenderness to palpation present (GI), No hepatosplenomegaly present, Palpable mass present and Other GI palpation findings present (Abdomen is grossly obese and slightly protuberant) Auscultation: normal bowel sounds Back/Spine/Pelvis Thoracic/Lumbar Spine: thoracic and lumbar spine normal to inspection and thoraco-lumbar ROM limited Skin General skin exam: no rashes or lesions noted and dry skin Neuro General: patient oriented x3 and no focal motor deficits Cranial nerves: Yes CN's II-XII intact bilaterally Extrem General: Yes normal to inspection, Yes no clubbing, cyanosis or edema and Yes no calf tenderness Psych Appearance: grossly normal and well kempt Speech and movement: Normal speech and movement present Results Reviewed Results Reviewed: COMPLIANCE REPORT IS REVIEWED, HE HAS USED 30/30 NIGHTS, 100% AVERAGE USE PER NIGHT 6 HOURS 25 MINUTES. PRESSURE IS 15 CM. THERE IS MODERATE AMOUNT OF AIR LEAK. ( GARZA FACTOR ) HOWEVER RESIDUAL AHI ONLY 1.9 Assessment & Plan Assessment & Plan (1) KELSY on CPAP: Comment: PATIENT DOES HAVE OBSTRUCTIVE SLEEP APNEA FOR MANY YEARS, HE HAS BEEN USING CPAP REGULARLY, PRESSURE 14 CM, FULLFACE MASK. HE BENEFITS FROM THE USE OF CPAP. Code(s): G47.33 - Obstructive sleep apnea (adult) (pediatric); Z99.89 - Dependence on other enabling machines and devices Plan: AIR LEAK PROBLEM WAS BROUGHT TO HIS ATTENTION HE IS ADVISED TO TIGHTEN THE STRAPS. OTHERWISE HIS COMMENDED FOR GOOD COMPLIANCE AND ADVISED TO KEEP ON USING CPAP EVERY NIGHT. (2) COPD (chronic obstructive pulmonary disease): Comment: PATIENT HAS BEEN TREATED A CASE OF CHRONIC OBSTRUCTIVE PULMONARY DISEASE/BRONCHIAL ASTHMA. I EXPLAINED TO HIM THE RESULTS OF PULMONARY FUNCTION TEST BEING ALMOST NORMAL. HE DOES NOT BELIEVE IT AND SAYS ,IF HE DOES NOT USE COMBIVENT RESPIMAT HE GETS MORE COUGH AND SHORTNESS OF BREATH. Code(s): J44.9 - Chronic obstructive pulmonary disease, unspecified Plan: RECC . ADVISED THAT HE MAY CONTINUE TO USE ANORO ELLIPTA ONCE A DAY. BUT HE SHOULD USE COMBIVENT RESPIMAT 1 INHALATION Q 4-6 HOURS ONLY P.R.N., AND NOT REGULARLY. (3) Obesity (BMI 30-39.9): Comment: THIS IS A CHRONIC PROBLEM IN HIS CASE, PATIENT IS FULLY AWARE, HE TRIES TO LIMIT CALORIES INTAKE. It is BECAUSE OF LOW LEVEL OF ACTIVITY THAT HE CANNOT LOSE WEIGHT. Code(s): E66.9 - Obesity, unspecified Plan HE IS ENCOURAGED TO DO SOME WALKING ON A DAILY BASIS.. AND CUT DOWN THE CALORIES INTAKE Coding Level of Care Code Est Pt Level 3 (18075) Diagnoses KELSY on CPAP G47.33; Z99.89 COPD (chronic obstructive pulmonary disease) J44.9 Obesity (BMI 30-39.9) E66.9
== END 2023-10-27 11:56 | disposition home or self-care (01) ==
PROVIDERS: PCP Family Medicine; Visit Provider Internal Medicine
DX: G47.33 Obstructive sleep apnea (adult) (pediatric) (principal); Z99.89 Dependence on other enabling machines and devices; J44.9 Chronic obstructive pulmonary disease, unspecified; E66.9 Obesity, unspecified
CPT/HCPCS: 99213

== ENCOUNTER 2023-10-27 11:02 | Outpatient (REF) | payer OTHER, SELFPAY ==
[2023-10-27 13:53] LABS: Alanine Aminotransferase 15 U/L (0-40); Albumin Level 4.1 g/dL (3.5-5.0); Alkaline Phosphatase 101 U/L (39-117); Anion Gap 10 (12-20); Aspartate Amino Transferase 15 U/L (5-37); Bilirubin Total 0.3 mg/dL (0.0-1.0); Blood Urea Nitrogen 20 mg/dL (9-16); Calcium 9.9 mg/dL (8.4-10.2); Carbon Dioxide 23 mmol/L (22-29); Chloride 114 mmol/L (96-108); Cholesterol 115 mg/dL (<200); Estimated Glomerular Filt Rate 59; Glucose Fasting 94 mg/dL (60-99); HDL Cholesterol 31 mg/dL (>40); LDL Cholesterol Calculated 55 mg/dL (<100); Potassium 4.2 mmol/L (3.3-5.1); Sodium 143 mmol/L (135-145); Total Protein 7.4 g/dL (6.5-8.0); Triglycerides 149 mg/dL (<150)
== END 2023-10-27 11:03 | disposition home or self-care (01) ==
LOC: HO.LAB 11:02
PROVIDERS: Absent Provider Family Medicine; PCP Family Medicine; Visit Provider Internal Medicine
DX: Z00.00 Encounter for general adult medical examination without abnormal findings (principal); I25.10 Atherosclerotic heart disease of native coronary artery without angina pectoris; G47.33 Obstructive sleep apnea (adult) (pediatric); J44.9 Chronic obstructive pulmonary disease, unspecified; E66.9 Obesity, unspecified; Z79.899 Other long term (current) drug therapy
CPT/HCPCS: 36415; 80053; 80061; 99212

== ENCOUNTER 2023-10-29 14:58 | Outpatient (AMB) | payer OTHER, SELFPAY ==
--- NOTE | 2023-10-29 14:53 | A.OFFVIS_ITS ---
Intake Intake Visit Reasons: tele - left knee MRI review Intake Note: Mina is a 48 year old male who presents today on the phone for a telehealth visit for a MRI review of his left knee. Patients wants to know if he did anything to make his pain worse. Allergies erythromycin base Allergy (Mild, Verified 10/29/23 15:07) Confusion clonidine Adverse Reaction (Severe, Verified 10/29/23 15:07) Vomiting HPI tele - left knee MRI review HPI Details 48-year-old male who presents via phone for a telehealth appointment for a follow up of left knee osteoarthritis and review of his MRI. Patient confirms prior surgery of left knee meniscectomy. Patient reports pain in the hip on side when he sits on the floor or ambulating stairs. He denies external tenderness to palpation. He states he tried icy hot with no relief. [facility] Medical History Obesity (BMI 30-39.9) COPD (chronic obstructive pulmonary disease) KELSY on CPAP Morbid obesity Torn rotator cuff Diabetes High cholesterol Hypertension Surgical History Stented coronary artery History of carpal tunnel surgery Family History Other Mental health disorder Substance abuse Social History Housing: House Patient Tobacco Use Status: Former Tobacco user e-Cigarette/Vaping Use: Never Used Second Hand Smoke Exposure: No service: No Current occupational status: unemployed Current occupational exposures/hazards: No Cognitive needs: No Hearing needs: No Vision needs: Yes Review of Systems Const All systems reviewed & are unremarkable except as noted in HPI and below Physical Exam Extrem Other: Deferred due to telehealth. Assessment & Plan Assessment & Plan (1) Osteoarthritis of left knee: Code(s): M17.12 - Unilateral primary osteoarthritis, left knee Qualifiers: Osteoarthritis type: primary Qualified Code(s): M17.12 - Unilateral primary osteoarthritis, left knee (2) Diabetes: Code(s): E11.9 - Type 2 diabetes mellitus without complications Plan Mr. Lopes is a 48-year-old male who presents via phone for a telehealth appointment for a follow up of left knee osteoarthritis and review of his MRI. Patient confirms prior surgery of left knee meniscectomy. Patient reports pain in the hip on side when he sits on the floor or ambulating stairs. He denies external tenderness to palpation. He states he tried icy hot with no relief. Dr. Campos was available to review the case and MRI with me while in the office today and a collaborative treatment plan was made. We discussed different conservative treatment, gel injection or referral to pain management, with the patient over the phone. Patient will call the office should he wish to move forward with gel injections. Follow up will be PRN, or sooner if needed. An appointment was made for the patient to be evaluated for his hip pain. MRI of the left knee, obtained on 10/20/2023, revealed: IMPRESSION: 1. [id number]-vyuvmdro medial compartment osteoarthritis. 2. Diminutive posterior horn and body of the medial meniscus, consistent with prior partial meniscectomy. A superimposed radial tear of the posterior root is possible, though less likely. 3. Minimal patellofemoral and lateral compartment osteoarthritis. 4. Small joint effusion. Patient Instructions: Scribed by Megha Kennedy medical photographer, for Laverne Rae PA-C on 10/29/2023 at 2:53 pm, EST. Telehealth Telehealth Location of provider rendering services: practice address Location of patient: address on file Patient Identification confirmed using: Name, : Yes Telehealth method: voice only Patient verbally consented to treatment: Yes Patient verbally consented to billing insurance company: Yes Patient informed of any privacy concerns related to visit: Yes Minutes spent on Phone/Video with Pt.: 10 Coding Level of Care Code Tele Est Pt Level 4 (90682) Diagnoses Primary osteoarthritis of left knee M17.12 Osteoarthritis type: primary Diabetes E11.9
== END 2023-10-29 15:08 | disposition home or self-care (01) ==
LOC: HO.HOS 14:58
PROVIDERS: PCP Family Medicine; Visit Provider Physician Assistant
DX: M17.12 Unilateral primary osteoarthritis, left knee (principal); E11.9 Type 2 diabetes mellitus without complications
CPT/HCPCS: 99214

== ENCOUNTER → 2023-10-29 14:58 | Outpatient (BNVA) | payer OTHER, SELFPAY | PROVIDERS: PCP Family Medicine; Visit Provider Physician Assistant ==

== ENCOUNTER 2023-11-10 10:36 | Outpatient (AMB) | payer OTHER, SELFPAY ==
--- NOTE | 2023-11-10 10:44 | A.OFFVIS_ITS ---
Intake Vital Signs 11/10/23 10:47 Height 6 ft Weight 250 lb BMI 33.9 Intake Visit Reasons: New Prob - right hip pain Intake Note: Mina is a 48 year old male who presents today for a evaluation of his right hip. No hx of injury. Patient reports reports ongoing pain for many years. He states that his pain is worse when he is going up the stairs and when he his sitting with his legs crossed. His pain is focused on the side of his hip and it stays in that area. Allergies erythromycin base Allergy (Mild, Verified 11/10/23 10:46) Confusion clonidine Adverse Reaction (Severe, Verified 11/10/23 10:46) Vomiting HPI New Prob - right hip pain HPI Details 48-year-old male who presents in the off ice today for an evaluation of right hip pain. Patient denies any known injury. He states the pain has been present for many years. He claims the pain increases with the use of stairs and when he sits with his legs crossed. He states his pain is focused on the side of his hip and does not radiate. Patient has a significant medical history of diabetes mellitus. [facility] Medical History Obesity (BMI 30-39.9) COPD (chronic obstructive pulmonary disease) KELSY on CPAP Morbid obesity Torn rotator cuff Diabetes High cholesterol Hypertension Surgical History Stented coronary artery History of carpal tunnel surgery Family History Other Mental health disorder Substance abuse Social History Housing: House Patient Tobacco Use Status: Former Tobacco user e-Cigarette/Vaping Use: Never Used Second Hand Smoke Exposure: No service: No Current occupational status: unemployed Current occupational exposures/hazards: No Cognitive needs: No Hearing needs: No Vision needs: Yes Review of Systems Const All systems reviewed & are unremarkable except as noted in HPI and below Physical Exam Vital Signs: BMI result Body Mass Index 33.9 Const General: cooperative, healthy appearing and no acute distress Resp Effort & Inspection: normal respiratory effort and able to speak in complete sentences Cardio Rate: regular rate Peripheral pulses: Peripheral pulses 2+ throughout GI Palpation (GI): Soft to palpation Skin Lesions: no lesions Rashes: no rashes Extrem Other: Right hip: Normal to inspection. No ecchymosis, erythema, or edema. Full hip ROM in all planes. No tenderness to palpation over the greater trochanteric bursa. 5/5 strength with resisted hip flexion, knee extension, abduction, and abduction. Able to perform straight leg raise. NVI. Assessment & Plan Assessment & Plan (1) Lumbar radiculopathy: Code(s): M54.16 - Radiculopathy, lumbar region Plan Mr. Lopes is a 48-year-old male who presents in the office today for an evaluation of right hip pain. Patient denies any known injury. He states the pain has been present for many years. He claims the pain increases with the use of stairs and when he sits with his legs crossed. He states his pain is focused on the side of his hip and does not radiate. Patient has a significant medical history of diabetes mellitus. Patient will be referred to Physiatry for further evaluation and to establish care to treat his lower back pain with radiation of numbness and tingling to the right lower extremity. Follow up will be PRN, or sooner if needed. X-rays of the right hip which were obtained while in the office today and were reviewed by me, Laverne Rae PA-C, revealed no acute fracture, dislocation or degenerative changes. Pistol deformity noted. Patient Instructions: Scribed by Megha Kennedy medical photographer, for Laverne Rae PA-C on 11/10/2023 at 11:10 am, EST. Coding Level of Care Code Est Pt Level 3 (88051) Diagnoses Lumbar radiculopathy M54.16
[2023-11-10 10:47] VITALS: BMI 33.9
== END 2023-11-10 11:16 | disposition home or self-care (01) ==
PROVIDERS: PCP Family Medicine; Visit Provider Physician Assistant
DX: M54.16 Radiculopathy, lumbar region (principal)
CPT/HCPCS: 99213

== ENCOUNTER 2023-11-10 14:40 | Outpatient (REF) | payer OTHER, SELFPAY ==
--- NOTE | ~2023-11-10 | XR_ITS ---
EXAMINATION: XR HIP, RIGHT CLINICAL INFORMATION: Pain in unspecified hip. COMPARISON: None available. TECHNIQUE: AP view of the pelvis as well as 2 views of the right hip. FINDINGS: Bilateral sacroiliac joints are symmetric. Pubic symphysis is maintained. AP view of the pelvis demonstrates mild joint space narrowing and hypertrophic change in the bilateral hips. Right hip: Mild joint space narrowing with degenerative changes right hip. Alignment preserved. Subtle cystic lucencies along the lateral aspect of the right femoral head. Hypertrophic change prominent along the inferior medial aspect of the acetabulum. XR/XR hip RT min 2V IMPRESSION: 1. Mild degenerative changes in the bilateral hips. 2. Subtle cystic lucencies along the lateral aspect of the right femoral head. 3. Additional imaging with MRI recommended if there is clinical concern for fracture or other underlying pathology.
== END 2023-11-10 14:41 | disposition home or self-care (01) ==
LOC: HO.HOSX 14:40
PROVIDERS: Visit Provider Physician Assistant
DX: M54.16 Radiculopathy, lumbar region (principal)
CPT/HCPCS: 73502; 99212

== ENCOUNTER → 2023-11-16 12:14 | Outpatient (BNVA) | payer OTHER, SELFPAY | PROVIDERS: PCP Family Medicine; Visit Provider Internal Medicine Cardiovascular Disease | DX: I25.10 Atherosclerotic heart disease of native coronary artery without angina pectoris (principal); I10 Essential (primary) hypertension | CPT/HCPCS: 99212 ==

== ENCOUNTER 2023-11-16 12:15 | Outpatient (AMB) | payer OTHER, SELFPAY ==
[2023-11-16 12:30] VITALS: BP 120/72; PULSE 60; BMI 34.4
--- NOTE | 2023-11-16 12:30 | A.OFFVIS_ITS ---
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 Accompanied by: Self / Same As Patient Allergies erythromycin base Allergy (Mild, Verified 11/10/23 10:46) Confusion clonidine Adverse Reaction (Severe, Verified 11/10/23 10:46) Vomiting Medication List - Last Reconciled 11/16/23 by Pk Ash MD amitriptyline 50 mg PO BEDTIME amlodipine 10 mg PO DAILY 90 days aripiprazole 5 mg PO DAILY 90 days aspirin (Adult Low Dose Aspirin) 81 mg PO DAILY 90 days bupropion HCl XL 150 mg PO QAM 90 days bupropion HCl XL 300 mg PO DAILY 90 days carvedilol 25 mg PO Q12H 90 days cholecalciferol (vitamin D3) 25 mcg PO DAILY 90 days cyanocobalamin (vitamin B-12) 1,000 mcg PO DAILY 90 days duloxetine 30 mg PO DAILY 90 days escitalopram oxalate 5 mg PO DAILY gabapentin 300 mg PO TID 30 days hydroxyzine HCl 25 mg PO TID indomethacin 25 mg PO BID 30 days ipratropium-albuterol 20-100 mcg/actuation (Combivent Respimat) 1 puff inhalation Q6H 90 days ipratropium-albuterol 20-100 mcg/actuation (Combivent Respimat) 1 puff inhalation Q6H PRN isosorbide mononitrate ER 30 mg PO DAILY 90 days loratadine 10 mg PO DAILY 90 days metformin 500 mg PO BID 90 days nystatin 5 mL PO DAILY 10 days omeprazole 20 mg PO BID 90 days pramipexole 0.5 mg PO BEDTIME 30 days rosuvastatin 40 mg PO DAILY 90 days tamsulosin 0.4 mg PO DAILY 90 days topiramate 300 mg PO DAILY triamcinolone acetonide 0.1% 1 appl topical DAILY 30 days umeclidinium-vilanterol 62.5-25 mcg/actuation (Anoro Ellipta) 1 inh inhalation Q24H 30 days HPI Comments Details: Mina comes for follow-up. He continues to have left-sided chest pain as before. He has no anginal sounding chest discomfort. His workup with that chest pain with myocardial perfusion imaging last November was within normal limits. His EKGs have been within normal limits. He unfortunately pull this back yesterday while feeding his dogs. As having sciatic pain. Has not been able to exercise much due to his knee pain. Does not smoke currently. Has not been able to lose weight. Denies any prolonged palpitations. Denies any exertional chest pain. No orthopnea, PND, leg edema. Denies any prolonged palpitation irregular heartbeat. Does not smoke. His most recent LDL is very well optimized including his triglycerides. [facility] Medical History Obesity (BMI 30-39.9) COPD (chronic obstructive pulmonary disease) KELSY on CPAP Morbid obesity Torn rotator cuff Diabetes High cholesterol Hypertension Surgical History Stented coronary artery History of carpal tunnel surgery Family History Other Mental health disorder Substance abuse Social History Housing: House Patient Tobacco Use Status: Former Tobacco user e-Cigarette/Vaping Use: Never Used Second Hand Smoke Exposure: No service: No Current occupational status: unemployed Current occupational exposures/hazards: No Cognitive needs: No Hearing needs: No Vision needs: Yes Review of Systems Const Denies chills, Denies fatigue, Denies fever(s), Denies frequent falls, Denies weakness, Denies weight gain and Denies weight loss ENT Denies dizziness Card Denies chest pain, Denies leg edema, Denies lightheadedness, Denies palpitations, Denies dyspnea and Denies dyspnea on exertion Resp Denies cough, Denies dyspnea and Denies dyspnea on exertion GI Denies hematochezia Musc Denies abnormal gait, Denies muscle weakness, Denies numbness, Denies radiating pain into limb and Denies tingling Neuro Denies abnormal gait, Denies dizziness, Denies frequent falls, Denies numbness, Denies tingling and Denies weakness Endo Denies fatigue and Denies palpitations Physical Exam Vital Signs: Last Vital Signs Pulse 60 11/16/23 12:30 BP 120/72 11/16/23 12:30 BMI result Body Mass Index 34.4 Const General: comfortable and no acute distress Orientation/consciousness: patient oriented x3 Neck Neck: Yes normal visual inspection Resp Effort & Inspection: normal respiratory effort Auscultation: clear to auscultation bilaterally, no crackles, no rales, no rhonchi and no wheezes Cardio Jugular venous distension: no JVD Rate: regular rate Rhythm: regular rhythm Heart sounds: S1 normal heart sound present, S2 normal heart sound present, no murmurs and no rubs Neuro General: patient oriented x3 Extrem General: Yes normal to inspection Psych Appearance: grossly normal Mental Status: mental status grossly normal Speech and movement: Normal speech and movement present Assessment & Plan Assessment & Plan (1) Coronary artery disease: Code(s): I25.10 - Atherosclerotic heart disease of [place] coronary artery without angina pectoris Category: Medical Plan: CAD with prior drug-eluting stent to LAD with myocardial perfusion imaging within the last year within normal limits. He has atypical left-sided chest pain which is not cardiac in origin. Question musculoskeletal question question psychogenic. Aggressive medical therapy. Continue low-dose aspirin therapy for life. His lipids are well optimized at this time. Continue current anti lipid therapy along with high-intensity statin. Continue aggressive management diabetes. Continue aggressive management of hypertension. He is encouraged to continue to increase his activity level. Smoking cessation was applauded. (2) Hypertension: Code(s): I10 - Essential (primary) hypertension Category: Medical Plan: Hypertension which is currently well optimized advised to monitor blood pressure at home maintain a log. Goal blood pressure less than 130/84. Low-salt diet was discussed. Aggressive pain management was discussed. Will follow up in the clinic in 1 year's time, sooner p.r.n.. Thank you for allowing me to partake in his care.
== END 2023-11-16 12:47 | disposition home or self-care (01) ==
PROVIDERS: PCP Family Medicine; Visit Provider Internal Medicine Cardiovascular Disease
DX: I25.10 Atherosclerotic heart disease of native coronary artery without angina pectoris (principal); I10 Essential (primary) hypertension
CPT/HCPCS: 99214

== ENCOUNTER 2023-12-16 08:45 | Outpatient (REF) | payer OTHER, SELFPAY ==
--- NOTE | ~2023-12-16 | XR_ITS ---
EXAMINATION: XR LUMBOSACRAL SPINE CLINICAL INFORMATION: Back pain COMPARISON: Right hip 11/17/2023 TECHNIQUE: Three views of the lumbosacral spine. FINDINGS: Mild levoscoliosis of the lumbar spine. Facet arthritis in the lower lumbar spine. Moderate multilevel lumbar spondylosis with multilevel loss of disc space height. XR/XR lumbar spine 2-3V IMPRESSION: Moderate multilevel lumbar spondylosis.
== END 2023-12-16 08:46 | disposition home or self-care (01) ==
LOC: HO.HOSX 08:45
PROVIDERS: Visit Provider Physical Medicine & Rehabilitation
DX: M54.50 Low back pain, unspecified (principal); M54.2 Cervicalgia
CPT/HCPCS: 72100; 99212

== ENCOUNTER 2023-12-16 09:46 | Outpatient (AMB) | payer OTHER, SELFPAY ==
[2023-12-16 09:49] VITALS: BMI 34.3
--- NOTE | 2023-12-16 09:49 | A.OFFVIS_ITS ---
Vital Signs 12/16/23 09:49 Height 6 ft Weight 253 lb BMI 34.3 Intake Visit Reasons: New Pt -pain right side of back Intake Note: Mina is a 48 year old male who presents today as a new patient with complaints of right sided lower back pain and neck pain. He explains that the has a curvature of his lumber spine. He also has compression of his verabre in the c spine. It was recommended that he sees a chiropractor but he has not yet seen one. Pain is felt in his muscles of the neck and shoulders when waking up in the morining He does have carpal tunnel in bilateral hands so he cannot attribute this to his neck Allergies erythromycin base Allergy (Mild, Verified 12/16/23 10:00) Confusion clonidine Adverse Reaction (Severe, Verified 12/16/23 10:00) Vomiting Medication List - Last Reconciled 12/16/23 by Mirna Easley MD amitriptyline 50 mg PO BEDTIME amlodipine 10 mg PO DAILY 90 days aripiprazole 5 mg PO DAILY 90 days aspirin (Adult Low Dose Aspirin) 81 mg PO DAILY 90 days bupropion HCl XL 150 mg PO QAM 90 days bupropion HCl XL 300 mg PO DAILY 90 days carvedilol 25 mg PO Q12H 90 days cholecalciferol (vitamin D3) 25 mcg PO DAILY 90 days cyanocobalamin (vitamin B-12) 1,000 mcg PO DAILY 90 days duloxetine 30 mg PO DAILY 90 days escitalopram oxalate 5 mg PO DAILY gabapentin 300 mg PO TID 30 days hydroxyzine HCl 25 mg PO TID indomethacin 25 mg PO BID 30 days ipratropium-albuterol 20-100 mcg/actuation (Combivent Respimat) 1 puff inhalation Q6H 90 days ipratropium-albuterol 20-100 mcg/actuation (Combivent Respimat) 1 puff inhalation Q6H PRN isosorbide mononitrate ER 30 mg PO DAILY 90 days loratadine 10 mg PO DAILY 90 days metformin 500 mg PO BID 90 days nystatin 5 mL PO DAILY 10 days omeprazole 20 mg PO BID 90 days pramipexole 0.5 mg PO BEDTIME 30 days rosuvastatin 40 mg PO DAILY 90 days tamsulosin 0.4 mg PO DAILY 90 days topiramate 300 mg PO DAILY triamcinolone acetonide 0.1% 1 appl topical DAILY 30 days umeclidinium-vilanterol 62.5-25 mcg/actuation (Anoro Ellipta) 1 inh inhalation Q24H 30 days HPI Comments Details: In [place], where he used to live, 2020, had xray of lumbar and was told over to the right and recommended to go to chiropractor. Confirms that he is not aware of any previous fracture of the lower/lumbar spine. Pain on right side, would radiate to thigh only on occasion. He has RLS and DM baseline so he attributes paresthesia to those. Been using a cane, says his gait staggers, been happening for the last 2 months. [facility] Medical History Obesity (BMI 30-39.9) COPD (chronic obstructive pulmonary disease) KELSY on CPAP Morbid obesity Torn rotator cuff Diabetes High cholesterol Hypertension Surgical History Stented coronary artery History of carpal tunnel surgery Family History Other Mental health disorder Substance abuse Social History Housing: House Patient Tobacco Use Status: Former Tobacco user e-Cigarette/Vaping Use: Never Used Second Hand Smoke Exposure: No service: No Current occupational status: unemployed Current occupational exposures/hazards: No Cognitive needs: No Hearing needs: No Vision needs: Yes Review of Systems Const All systems reviewed & are unremarkable except as noted in HPI and below Physical Exam Vital Signs: BMI result Body Mass Index 34.3 Constitutional: Patient appears to be in no acute distress, well nourished and well developed. Patient was appropriately conversant and oriented. Good historian. MSK: No specific abnormalities found on inspection of the spine and all extremities. No pain with palpation over the lumbar area. No tenderness on SI or GT. Lumbar ROM was full. Bilateral hip, knee and ankle ROM WNL. No ligamentous laxity or crepitance. No increased effusion. Straight-leg raising test negative. FABERE test negative. Strength is 5/5 in all muscle groups tested. No increased tone noted. Neurological: Neurologic examination of the upper and lower extremities was nonfocal with intact sensation, muscle stretch reflexes and without focal motor deficits . Don?s negative bilaterally. Babinski was down going bilaterally. Clonus was negative. Gait is antalgic without loss of balance. Skin: Scratches which she says coming from puppy Results Reviewed Results Reviewed: I independently reviewed the results of the following: Lumbar x-ray done in the office showed possible decreased L5-S1 disc space, endplate spurs. I reviewed records from the following: PCP Ortho Assessment & Plan Assessment & Plan (1) Discogenic pain: Code(s): M54.9 - Dorsalgia, unspecified Category: Medical Plan Possible discogenic pain. No signs of radiculopathy on exam. We will start with PT. If not improved, we will consider further imaging. We adjusted height of cane. Assessment and plan discussed with patient, and patient was agreeable. All questions were answered thoroughly. Follow-up 4-6 weeks, after PT. Mirna Easley MD, BEE Board Certified, [place] [employer] and Rehabilitation (ABPMR) Board Certified, [place] [employer] Electrodiagn[employer] (ABEM) Orders: Orders XR lumbar spine 2-3V Today M54.9 - Dorsalgia, unspecified Coding Level of Care Code New Pt Level 4 (22435) Diagnoses Discogenic pain M54.9
== END 2023-12-16 10:28 | disposition home or self-care (01) ==
PROVIDERS: PCP Family Medicine; Visit Provider Physical Medicine & Rehabilitation
DX: M54.9 Dorsalgia, unspecified (principal)
CPT/HCPCS: 99213

== ENCOUNTER 2023-12-30 09:20 | Outpatient (AMB) | payer OTHER, SELFPAY ==
[2023-12-30 09:36] VITALS: BP 122/74; PULSE 80; O2SAT 98; BMI 35.4
--- NOTE | 2023-12-30 09:36 | MHC.PC.OV ---
Vital Signs 12/30/23 09:36 Height 6 ft Weight 261 lb BMI 35.4 BP 122/74 Blood Pressure Location Lt brachial Position Sitting Pulse 80 Pulse Source Pulse Oximeter Pulse Oximetry (%) 98 Oxygen Delivery Method Room Air Intake Visit Reasons: f/u HLD Intake Note: Patient is here for follow up on his cholesterol. He would like his head looked at after putting head through plate glass window. Allergies erythromycin base Allergy (Mild, Verified 12/30/23 09:37) Confusion clonidine Adverse Reaction (Severe, Verified 12/30/23 09:37) Vomiting Medication List - Last Reconciled 12/30/23 by Leland Trujillo MD amitriptyline 50 mg PO BEDTIME amlodipine 10 mg PO DAILY 90 days aripiprazole 5 mg PO DAILY 90 days aspirin (Adult Low Dose Aspirin) 81 mg PO DAILY 90 days bupropion HCl XL 150 mg PO QAM 90 days bupropion HCl XL 300 mg PO DAILY 90 days carvedilol 25 mg PO Q12H 90 days cholecalciferol (vitamin D3) 25 mcg PO DAILY 90 days cyanocobalamin (vitamin B-12) 1,000 mcg PO DAILY 90 days duloxetine 30 mg PO DAILY 90 days escitalopram oxalate 5 mg PO DAILY gabapentin 300 mg PO TID 30 days hydroxyzine HCl 25 mg PO TID indomethacin 25 mg PO BID 30 days ipratropium-albuterol 20-100 mcg/actuation (Combivent Respimat) 1 puff inhalation Q6H 90 days ipratropium-albuterol 20-100 mcg/actuation (Combivent Respimat) 1 puff inhalation Q6H PRN isosorbide mononitrate ER 30 mg PO DAILY 90 days loratadine 10 mg PO DAILY 90 days metformin 500 mg PO BID 90 days nystatin 5 mL PO DAILY 10 days omeprazole 20 mg PO BID 90 days pramipexole 0.5 mg PO BEDTIME 30 days rosuvastatin 40 mg PO DAILY 90 days tamsulosin 0.4 mg PO DAILY 90 days topiramate 300 mg PO DAILY triamcinolone acetonide 0.1% 1 appl topical DAILY 30 days umeclidinium-vilanterol 62.5-25 mcg/actuation (Anoro Ellipta) 1 inh inhalation Q24H 30 days Tobacco use date assessed: 12/30/23 Dental Screening Dental Screen Date: 12/30/23 Did you have a dental visit in the last 12 months?: Yes Did you have a dental problem in the last 6 months where you did not have access to dental care?: No Was dental information given to patient?: Patient has dentist HPI f/u HLD HPI Details 48 y/o male presents to /u [facility]. Labs were drawn 10/27/23. Reviewed labs with pt. Had switched artovastatin to rosuvastatin. Triglycerides improved from 329 to 149. TC 115. LDL 55. HDL low at 31. Blood pressure today 122/74. He is on carvedilol 25mg, amlodipine 10mg daily. Pt reports he had lost his balance and had put his head through a plate glass window. He does not remember his last tetanus shot. [facility] Medical History Obesity (BMI 30-39.9) COPD (chronic obstructive pulmonary disease) KELSY on CPAP Morbid obesity Torn rotator cuff Diabetes High cholesterol Hypertension Surgical History Stented coronary artery History of carpal tunnel surgery Family History Other Mental health disorder Substance abuse Social History Housing: House Patient Tobacco Use Status: Former Tobacco user e-Cigarette/Vaping Use: Never Used Second Hand Smoke Exposure: No service: No Current occupational status: unemployed Current occupational exposures/hazards: No Cognitive needs: No Hearing needs: No Vision needs: Yes Questionnaire Thrive Questionnaire Date Thrive assessed: 06/16/22 LAMBERTO-7 AMB Questionnaire LAMBERTO-7 Date LAMBERTO - 7 assessed: 07/08/23 Source: Developed by Drs. Arnoldo Carreno, Dyan Edwards, Alvarez Jose and colleagues, with an educational shanna from [employer]. Review of Systems Const Denies chills, Denies fatigue, Denies fever(s), Denies headache(s) and Denies weakness ENT Denies dizziness and Denies headache(s) Card Denies dyspnea Resp Denies cough, Denies dyspnea, Denies wheezing and Denies other (shortness of breath) Musc Denies numbness and Denies tingling Neuro Denies dizziness, Denies headache(s), Denies numbness, Denies tingling and Denies weakness Psych Denies anxiety and Denies depression Endo Denies fatigue Aller/Immun Denies wheezing Physical exam (Primary Care) Vital Signs: Last Vital Signs Pulse 80 12/30/23 09:36 BP 122/74 12/30/23 09:36 Pulse Ox 98 12/30/23 09:36 Oxygen Delivery Method Room Air 12/30/23 09:36 BMI result Body Mass Index 35.4 Tobacco/Smoking Status: Tobacco use Status Tobacco use date assessed 12/30/23 12/30/23 09:39 Patient Tobacco Use Status Former Tobacco user 12/30/23 09:39 e-Cigarette/Vaping Use Never Used 12/30/23 09:39 Thrive Assessment: Date of Thrive Assessment Date Thrive assessed 06/16/22 12/30/23 09:39 Const General: well developed; No acute distress Nutritional Appearance: well nourished Orientation/consciousness: patient oriented x3 HENMT Head: Yes normocephalic and Yes atraumatic Eyes General: appearance normal, both eyes and all related structures Pupils: Equal, round and reactive pupils present EOM: EOMs intact bilaterally Resp Effort & Inspection: normal respiratory effort Skin Other: 0.25 cm laceration of his scalp, near the vertex with about a 4cm surrounding faint erythema and tenderness/swelling Neuro General: patient oriented x3 and gait normal Cranial nerves: Yes Equal, round and reactive pupils present Psych Affect: normal affect Results AMB Hemoglobin A1c AMB Hemoglobin A1c 5.7 % Last Edit by Oralia Lobo CMA on 12/30/23 10:15 Immunizations Boostrix Tdap 2.5 Lf unit-8 mcg-5 Lf/0.5 mL intramuscular syringe Performing Provider: Leland Trujillo MD Performing Location: [facility] [place] [facility] Medicine Administered by: Cristy Rodriguez RN on 12/30/23 10:13 Dose Route Admin Location Dispensed Lot Number Expiration Date NDC Electrodynamicist 0.5 mL IM Left Deltoid 0.5 mL [id number] 01/26/26 13357-669-95 [employer] VIS Given Date VIS Provided VIS Publication Date 12/30/23 Single Vaccine 21 Eligibility Eligibility Date Funding Source Not VFC Eligible 12/30/23 Private Results Reviewed Results Reviewed: Laboratory Last Values Hgb A1c (Clinic) 5.7 % (4.0-6.0) 12/30/23 10:12 Assessment and Plan Assessment & Plan (1) Hyperlipidemia: Code(s): E78.5 - Hyperlipidemia, unspecified Plan: Had?changed?patient's?statin?to?rosuvastatin?and?LDL?and?now?triglycerides?appear?well?controlled.??Triglycerides?have?improved?from?10/22?down?to?149. Still?has?low?HDL?but?patient?has?difficulty?with?exercise.??Encouraged?exercise?as?tolerated. Continue?rosuvastatin (2) Coronary artery disease: Code(s): I25.10 - Atherosclerotic heart disease of [place] coronary artery without angina pectoris Plan: Stable Follow-up?with?Cardiology?as?recommended (3) Hypertension: Code(s): I10 - Essential (primary) hypertension Plan: Blood?pressure?is?well?controlled.??Goal?is?less?than?130/80 Continue?current?medication?regimen (4) Diabetes: Code(s): E11.9 - Type 2 diabetes mellitus without complications Plan: Patient?is?taking?his?medications?as?prescribed. Blood?sugar?appears?controlled Will?follow-up?again?on?this?at?his?next?visit No?changes?to?medication?regimen?and?continue?diabetic?diet (5) Puncture wound of scalp: Code(s): S01.03XA - Puncture wound without foreign body of scalp, initial encounter Plan: Small?puncture/laceration?of?scalp?with?faint?surrounding?erythema?and?swelling?with?tenderness. Inspection?and?palpation?of?wound?does?not?reveal?any?foreign?body Patient?is?diabetic?and?mild?erythema?with?tenderness.??Possible?early?infection Start?cephalexin No?record?of?a?tetanus?shot.??Patient?will?receive?Tdap?today. Orders: Orders TDaP Immunization 12/30/23 Z23 - Encounter for immunization AMB Hemoglobin A1c 12/30/23 Z13.9 - Encounter for screening, unspecified Medications: New cephalexin 500 mg PO Q12H 14 caps 0RF 7 days Coding Level of Care Code Est Pt Level 4 (63477) Diagnoses Hyperlipidemia E78.5 Coronary artery disease I25.10 Hypertension I10 Diabetes E11.9 Puncture wound of scalp S01.03XA
== END 2023-12-30 10:13 | disposition home or self-care (01) ==
PROVIDERS: PCP Family Medicine; Visit Provider Family Medicine
DX: S01.03XA Puncture wound without foreign body of scalp, initial encounter (principal); E11.65 Type 2 diabetes mellitus with hyperglycemia; E78.5 Hyperlipidemia, unspecified; I25.10 Atherosclerotic heart disease of native coronary artery without angina pectoris; I10 Essential (primary) hypertension
CPT/HCPCS: 83036; 90471; 90715; 99214

== ENCOUNTER 2024-02-10 09:01 | Outpatient (AMB) | payer OTHER, SELFPAY ==
--- NOTE | 2024-02-10 09:07 | MHC.OFFVIS ---
Vital Signs 02/10/24 09:08 Height 6 ft Weight 261 lb BMI 35.4 Intake Visit Reasons: OV-pain right side of back-2 month follow up Intake Note: Mina is a 49 year old male who presents to the office today for a 2 month follow up pain on right side of back. Patient reports that he has been working with physical therapy, he has attened about 5 sessions. His symptoms remain relatively unchanged. Allergies erythromycin base Allergy (Mild, Verified 02/10/24 09:07) Confusion clonidine Adverse Reaction (Severe, Verified 02/10/24 09:07) Vomiting HPI Comments Details: Patient 1st seen 12/16/2023. In [place], where he used to live, 2020, had xray of lumbar and was told over to the right and recommended to go to chiropractor. Confirms that he is not aware of any previous fracture of the lower/lumbar spine. Pain on right side, would radiate to thigh only on occasion. He has RLS and DM baseline so he attributes paresthesia to those. Been using a cane, says his gait staggers, been happening for the last 2 months prior to any for sign. Lumbar x-ray done in the office showed L5-S1 disc space loss. He thinks he has a new pulled muscle from bending/reaching towards leg 2 nights ago, felt something pulled. Has not been able to bend well since then. No new numbness on right leg. Overall PT has not helped. Same right sided back pain since I saw him, which he says can radiate to posterior thigh and also affect right lateral upper back/flank area. [facility] Medical History Obesity (BMI 30-39.9) COPD (chronic obstructive pulmonary disease) KELSY on CPAP Morbid obesity Torn rotator cuff Diabetes High cholesterol Hypertension Surgical History Stented coronary artery History of carpal tunnel surgery Family History Other Mental health disorder Substance abuse Social History Housing: House Patient Tobacco Use Status: Former Tobacco user e-Cigarette/Vaping Use: Never Used Second Hand Smoke Exposure: No service: No Current occupational status: unemployed Current occupational exposures/hazards: No Cognitive needs: No Hearing needs: No Vision needs: Yes Physical Exam Vital Signs: BMI result Body Mass Index 35.4 Constitutional: Patient appears to be in no acute distress, well nourished and well developed. Patient was appropriately conversant and oriented. Good historian. MSK: No specific abnormalities found on inspection of the spine and all extremities. No pain with palpation over the lumbar area. No tenderness on SI or GT. Lumbar ROM was full. Bilateral hip, knee and ankle ROM WNL. No ligamentous laxity or crepitance. No increased effusion. Straight-leg raising test negative. FABERE test negative. Strength is 5/5 in all muscle groups tested. No increased tone noted. Neurological: Neurologic examination of the upper and lower extremities was nonfocal with intact sensation, muscle stretch reflexes and without focal motor deficits . Don?s negative bilaterally. Babinski was down going bilaterally. Clonus was negative. Gait is non antalgic without loss of balance. Uses cane. Skin: Still has scratches on both legs which he says coming from puppy Results Reviewed Results Reviewed: Ordering Physician: Mirna Shaw Date of Service: 12/16/23 Procedure(s): XR lumbar spine 2-3V Accession Number(s): [id number] cc: Mirna Shaw~ EXAMINATION: XR LUMBOSACRAL SPINE CLINICAL INFORMATION: Back pain COMPARISON: Right hip 11/17/2023 TECHNIQUE: Three views of the lumbosacral spine. FINDINGS: Mild levoscoliosis of the lumbar spine. Facet arthritis in the lower lumbar spine. Moderate multilevel lumbar spondylosis with multilevel loss of disc space height. XR/XR lumbar spine 2-3V IMPRESSION: Moderate multilevel lumbar spondylosis. Reviewed notes from PCP. Assessment & Plan Assessment & Plan (1) Lumbar radiculopathy: Code(s): M54.16 - Radiculopathy, lumbar region Category: Medical (2) Discogenic pain: Code(s): M54.9 - Dorsalgia, unspecified Category: Medical (3) Herniated lumbar intervertebral disc: Code(s): M51.26 - Other intervertebral disc displacement, lumbar region Plan Chronic ongoing right-sided lower back pain that radiates to posterior thigh. Lumbar x-rays did showed disc space loss at L5-S1. Patient had undergone adequate conservative management including [PT] without improvement of condition. It would be reasonable to obtain further imaging such as MRI. An MRI would help rule out any serious condition, guide treatment and assess prognosis for recovery. Specifically ruling out right L5-S1 disc herniation. Depending on results, discussed that I may be referring him to either pain management or Neurosurgery. Patient verbalizes understanding and agreement. Assessment and plan discussed with patient, and patient was agreeable. All questions were answered thoroughly. Mirna Easley MD, BEE Board Certified, [place] [employer] and Rehabilitation (ABPMR) Board Certified, [place] Board [employer] Electrodiagnostic [employer] (ABEM) Orders: Orders MR lumbar spine wo con Today M51.26 - Other intervertebral disc displacement, lumbar region, M54.16 - Radiculopathy, lumbar region, M54.9 - Dorsalgia, unspecified Coding Level of Care Code Est Pt Level 4 (28158) Diagnoses Lumbar radiculopathy M54.16 Discogenic pain M54.9 Herniated lumbar intervertebral disc M51.26
[2024-02-10 09:08] VITALS: BMI 35.4
== END 2024-02-10 09:24 | disposition home or self-care (01) ==
PROVIDERS: PCP Family Medicine; Visit Provider Physical Medicine & Rehabilitation
DX: M54.16 Radiculopathy, lumbar region (principal); M54.9 Dorsalgia, unspecified; M51.26 Other intervertebral disc displacement, lumbar region
CPT/HCPCS: 99213

== ENCOUNTER → 2024-02-10 09:01 | Outpatient (BNVA) | payer OTHER, SELFPAY | PROVIDERS: PCP Family Medicine; Visit Provider Physical Medicine & Rehabilitation | DX: M54.16 Radiculopathy, lumbar region (principal); M51.26 Other intervertebral disc displacement, lumbar region | CPT/HCPCS: 99212 ==

== ENCOUNTER 2024-03-01 13:00 | Outpatient (RCR) | payer OTHER, SELFPAY ==
--- NOTE | 2024-01-27 12:10 | MHC.PT.EP ---
[facility] [place] Office [place] Office [place] Office [address] Claude Gerard [address] [phone] F: [phone] F: [phone] F: [phone] F: [phone] Physical Therapy Plan of Care Date of Evaluation: 01/27/24 Date of Surgery: Diagnosis: dorsalgia Assessment: 48 y/o male referred to PT with dorsalgia. 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 CUrrently reports pain and difficulty with everything from sitting, standing, walking, dressing, bathing, and chores. Examination shows antalgic gait pattern, poor squat mechanics, decreased lumbar/hip ROM, decrease core/hip strength, breath holding tendencies, and pain. Also noted scratches throughout B UE/LE and educated pt on wound care as he states his mamebull does this to him. Recommend PT 2x/week for 4 weeks to address impairments, implement HEP, and optimize functional mobility. Frequency and Duration: The patient will be seen 2x/week for 4 weeks Short Term Goals: 2 weeks I with HEP Pt will be able to perform sit to stands without UE support 10/10x Retirement Goals: 4 weeks I with HEP and self management of sx Pt will be able to walk > 15 minutes with pain < 3/10 Improve Oswestry to 14/50 (IR 20/50 Treatment Plan: Modalities to reduce pain, spasms and effusion. Manual therapy to restore motion and function. Therapeutic exercise to improve strength and flexibility. Neuromuscular re-education for posture and balance. Therapeutic activities to return to functional activities of daily living. Electronically signed by: Malinda Velázquez PT Please sign and return to therapist. Thank you for your referral.
--- NOTE | 2024-03-01 13:59 | MHC.PT.DC ---
[facility] [place] [facility] [place] [facility] [place] [facility] [address] Claude Gerard [address] [phone] F: [phone] F: [phone] F: [phone] F: [phone] Physical Therapy Discharge Report Diagnosis: dorsalgia Date of Surgery: Date of Evaluation: 01/27/24 Date of Discharge: 03/01/24 Treatments to Date: 8 Cancellations to Date: 0 No Shows to Date: 0 Discharge Status: Independent with HEP Recommend MD Follow-up Discharge Summary: Pt reports no change in sx with PT and that he actually 'pulled his back' putting on his shoes the other day, so today is worse than usual. We reviewed HEP and educated pt to continue with HEP and body mechanics. At this time he is d/c due to lack of progress and recommend f/u with MD. Electronically signed by: Malinda Velázquez PT Please sign and return to therapist. Thank you for your referral.
== END 2024-03-01 13:59 | disposition home or self-care (01) ==
LOC: HO.PT 13:00
PROVIDERS: PCP Family Medicine; Visit Provider Physical Medicine & Rehabilitation
DX: M54.9 Dorsalgia, unspecified (principal)
CPT/HCPCS: 97110; 97162; 97530

== ENCOUNTER → 2024-03-31 07:09 | Outpatient (BNV) | payer OTHER, SELFPAY | PROVIDERS: PCP Family Medicine; Visit Provider Radiology Diagnostic Radiology | DX: M54.16 Radiculopathy, lumbar region (principal); M51.26 Other intervertebral disc displacement, lumbar region; M54.9 Dorsalgia, unspecified | CPT/HCPCS: 72148 ==

== ENCOUNTER 2024-03-31 07:12 | Outpatient (REF) | payer OTHER, SELFPAY ==
--- NOTE | ~2024-03-31 | MR_ITS ---
EXAMINATION: MR LUMBAR SPINE WITHOUT CONTRAST CLINICAL INFORMATION: Chronic low back pain. Lifting injury in 1994. Restless leg syndrome. Evaluate for L5-S1 disc herniation. COMPARISON: No prior MRI. *Lumbar 12/14/2023. TECHNIQUE: Multiplanar multisequence MR imaging of the lumbar spine was done without IV contrast. Exam performed on a Siemens 1.5 Renetta magnet. Standard sequences utilized. FINDINGS: CORONAL ALIGNMENT: -There is a very mild levoconvex scoliosis, estimated Wisdom angle 5 degrees. SAGITTAL ALIGNMENT: -Normal lordosis. -Minimal 2 mm stairstep retrolisthesis L3 on L4, L4 on L5, and L5 on S1. -Alignment otherwise anatomic. LUMBOSACRAL JUNCTION: -Normal. There are 5 [id number] lumbar-type vertebral bodies. VERTEBRAL BODIES/BONE MARROW: -No compression deformities. -No infiltrating abnormal bone marrow signal. -Grossly no bone marrow edema present. DISCS: -There is minimal loss of disc height and signal at L1-2 and L3-4. -There is moderate loss at L4-5 and L5-S1. SPINAL CANAL: -There is mild congenital spinal narrowing notably spanning L4-S1. This will exacerbate acquired spondylolisthesis. CONUS MEDULLARIS: -Terminates at superior endplate of T12.. Morphology and signal is normal. INTRADURAL NERVE ROOTS: -Within normal limits. Axial Disc Space Images: T12-L1: No central canal or neural foraminal narrowing. Normal facets. L1-L2: Right paracentral and lateral disc extrusion, mildly extending into the right neural foramen. This measures an estimated 4 mm in AP by 18 mm in transverse by 10 mm in craniocaudad dimension. Coupled with mild hypertrophic degenerative facet changes and mild posterior ligamentous infolding, this is resulting in mild to moderate central canal narrowing, moderate right subarticular recess narrowing, with contact and mild posterior deviation of the traversing right L2 nerve roots. There is mild right neural foraminal narrowing. L2-L3: No central canal or neural foraminal narrowing. Mild hypertrophic degenerative facet changes. L3-L4: Minimal shallow concentric disc bulge with central annular fissuring, mild to moderate bilateral hypertrophic degenerative facet changes, mild posterior ligamentous thickening/infolding, resulting in mild central canal narrowing, mild bilateral subarticular recess narrowing, and mild to moderate bilateral neural foraminal narrowing. No definite nerve root impingement or mass effect. L4-L5: Diffuse concentric disc bulge present with central annular fissuring, and a superimposed right foraminal extrusion of disc material. Moderate hypertrophic degenerative facet changes bilaterally, with mild posterior ligamentous thickening/infolding. Combination of findings is resulting in mild to moderate central canal narrowing, moderate bilateral subarticular recess narrowing right greater than left. There is mild contact but no definite impingement of the traversing bilateral L5 nerve roots. There is moderate left greater than right neural foraminal narrowing, with contact but no impingement of the exiting left L4 root. L5-S1: There is a diffuse bulging disc present, concentrically involving both lateral and foraminal zones, and extending left lateral to foramen. There is central annular fissuring present. There are moderate hypertrophic degenerative facet changes bilaterally, with superimposed congenital spinal narrowing. There is moderate central canal narrowing, mild bilateral subarticular recess narrowing bilaterally with contact but no impingement of the bilateral traversing S1 roots, and mild bilateral neural foraminal narrowing although there appears to be disc material contacting the exiting roots in the lateral to foramen zones left greater than right. IMAGED SI JOINTS: Mild degenerative arthritis bilaterally with ventral osteophytes inferiorly involving the synovial aspects. Low T1 signal may indicate mild periarticular edema in the inferior joints bilaterally. PARAVERTEBRAL AND INCLUDED EXTRASPINAL SOFT TISSUES: -Imaged kidneys and aorta are normal. -No paraspinous or paravertebral muscular abnormalities. -No retroperitoneal adenopathy. -Normal adrenal glands. MR/MR lumbar spine wo con IMPRESSION: 1. Most notable abnormality is a disc extrusion oriented in the right paracentral, lateral, and foraminal regions at L1-2, resulting in moderate right subarticular recess narrowing with contact and mild deviation of the traversing right L2 nerve roots. 2. Diffuse bulging discs at L3-4, L4-5, and L5-S1 as described. No definite nerve root impingement evident at L5-S1 identified. See above. 3. Additional ancillary findings as discussed in the body of the report. Electronically signed by: Jose Meyer MD 04/15/2024 04:01 PM EDT
== END 2024-03-31 07:13 | disposition home or self-care (01) ==
LOC: HO.MRI 07:12
PROVIDERS: PCP Family Medicine; Visit Provider Physical Medicine & Rehabilitation
DX: M54.16 Radiculopathy, lumbar region (principal); M51.26 Other intervertebral disc displacement, lumbar region; M54.9 Dorsalgia, unspecified
CPT/HCPCS: 72148

== ENCOUNTER 2024-04-06 08:13 | Outpatient (AMB) | payer OTHER, SELFPAY ==
--- NOTE | 2024-04-06 08:19 | A.OFFPC_ITS ---
Vital Signs 04/06/24 08:26 Height 6 ft Weight 280 lb 2 oz BMI 38.0 BP 104/68 Blood Pressure Location Rt brachial Position Sitting Respiration 16 Pulse 93 Pulse Source Pulse Oximeter Temp 97.5 F Temp Source Oral Pulse Oximetry (%) 98 Oxygen Delivery Method Room Air Intake Visit Reasons: f/u diabetes, HTN, chronic conditions Intake Note: patient here to follow up on diabetes,HTN, and chronic condition Information Systems Specialist Required: No Allergies erythromycin base Allergy (Mild, Verified 04/06/24 08:24) Confusion clonidine Adverse Reaction (Severe, Verified 04/06/24 08:24) Vomiting Medication List - Last Reconciled 04/06/24 by Leland Trujillo MD amitriptyline 50 mg PO BEDTIME amlodipine 10 mg PO DAILY 90 days aripiprazole 5 mg PO DAILY 90 days aspirin (Adult Low Dose Aspirin) 81 mg PO DAILY 90 days bupropion HCl XL 150 mg PO QAM 90 days bupropion HCl XL 300 mg PO DAILY 90 days carvedilol 25 mg PO Q12H 90 days cephalexin 500 mg PO Q12H 7 days cholecalciferol (vitamin D3) 25 mcg PO DAILY 90 days cyanocobalamin (vitamin B-12) 1,000 mcg PO DAILY 90 days duloxetine 30 mg PO DAILY 90 days escitalopram oxalate 5 mg PO DAILY gabapentin 300 mg PO TID 30 days hydroxyzine HCl 25 mg PO TID indomethacin 25 mg PO BID 30 days ipratropium-albuterol 20-100 mcg/actuation (Combivent Respimat) 1 puff inhalation Q6H 90 days ipratropium-albuterol 20-100 mcg/actuation (Combivent Respimat) 1 puff inhalation Q6H PRN isosorbide mononitrate ER 30 mg PO DAILY 90 days loratadine 10 mg PO DAILY 90 days metformin 500 mg PO BID 90 days nystatin 5 mL PO DAILY 10 days omeprazole 20 mg PO BID 90 days pramipexole 0.5 mg PO BEDTIME 30 days rosuvastatin 40 mg PO DAILY 90 days tamsulosin 0.4 mg PO DAILY 90 days topiramate 300 mg PO DAILY triamcinolone acetonide 0.1% 1 appl topical DAILY 30 days umeclidinium-vilanterol 62.5-25 mcg/actuation (Anoro Ellipta) 1 inh inhalation Q24H 30 days Tobacco use date assessed: 04/06/24 Dental Screening Dental Screen Date: 04/06/24 Did you have a dental visit in the last 12 months?: Yes Did you have a dental problem in the last 6 months where you did not have access to dental care?: No Was dental information given to patient?: Patient has dentist HPI f/u diabetes, HTN, chronic conditions HPI Details 49 y/o male presents to f/u diabetes, hy pertension, chronic conditions. Last A1c 12/30/23 5.7%. Continues to watch the sugars in his diet. Not much exercise due to lower extremity issues. Blood pressure today 104/68, 93p. He is on carvedilol 25mg, amlodipine 10mg daily. Lumbar spine MRI was done but has not been read yet. Pt reports he has followed up with a specialist for difficulty swallowing - states they were unable to do anything for him. MRI?shows?mass?at?pterygopalatine?fossa?and?left?pterygomaxillary?fissure HPI Comments History of Present Illness Details Documentation assistance for Leland Trujillo MD, was provided by Bruce Salinas, Pulling Unit Operator on 04/06/2024 at 8:43 AM EST. I, Dr. Trujillo, have read, observed, and verified documentation. [facility] Medical History Obesity (BMI 30-39.9) COPD (chronic obstructive pulmonary disease) KELSY on CPAP Morbid obesity Torn rotator cuff Diabetes High cholesterol Hypertension Surgical History Stented coronary artery History of carpal tunnel surgery Family History Other Mental health disorder Substance abuse Social History Housing: House Patient Tobacco Use Status: Former Tobacco user e-Cigarette/Vaping Use: Never Used Second Hand Smoke Exposure: No service: No Current occupational status: unemployed Current occupational exposures/hazards: No Cognitive needs: No Hearing needs: No Vision needs: Yes Questionnaire Thrive Questionnaire Date Thrive assessed: 06/16/22 LAMBERTO-7 AMB Questionnaire LAMBERTO-7 Date LAMBERTO - 7 assessed: 07/08/23 Source: Developed by Drs. Arnoldo Carreno, Dyan Edwards, Alvarez Jose and colleagues, with an educational shanna from [employer]. Review of Systems Const Denies chills, Denies fatigue, Denies fever(s), Denies headache(s) and Denies weakness ENT Denies dizziness and Denies headache(s) Card Denies chest pain, Denies lightheadedness, Denies dyspnea and Denies other (Palpitations) Resp Denies cough, Denies dyspnea, Denies wheezing and Denies other ( shortness of breath) Musc Denies numbness and Denies tingling Neuro Denies dizziness, Denies headache(s), Denies numbness, Denies tingling, Denies paresthesias and Denies weakness Psych Denies anxiety and Denies depression Endo Denies fatigue Aller/Immun Denies wheezing Physical exam (Primary Care) Vital Signs: Last Vital Signs Temp 97.5 F 04/06/24 08:26 Pulse 93 04/06/24 08:26 Resp 16 04/06/24 08:26 BP 104/68 04/06/24 08:26 Pulse Ox 98 04/06/24 08:26 Oxygen Delivery Method Room Air 04/06/24 08:26 BMI result Body Mass Index 38.0 Tobacco/Smoking Status: Tobacco use Status Tobacco use date assessed 04/06/24 04/06/24 08:30 Patient Tobacco Use Status Former Tobacco user 04/06/24 08:22 e-Cigarette/Vaping Use Never Used 04/06/24 08:22 Thrive Assessment: Date of Thrive Assessment Date Thrive assessed 06/16/22 04/06/24 08:22 Const General: no acute distress and well developed Nutritional Appearance: well nourished Orientation/consciousness: patient oriented x3 HENMT Head: Yes normocephalic and Yes atraumatic Eyes General: appearance normal, both eyes and all related structures Pupils: Equal, round and reactive pupils present EOM: EOMs intact bilaterally Resp Effort & Inspection: normal respiratory effort Auscultation: clear to auscultation bilaterally Cardio Rate: regular rate Rhythm: regular rhythm Heart sounds: S1 normal heart sound present, S2 normal heart sound present, no gallops, no murmurs and no rubs Neuro General: patient oriented x3 and gait normal Cranial nerves: Yes Equal, round and reactive pupils present Psych Affect: normal affect Assessment and Plan Assessment & Plan (1) Diabetes: Code(s): E11.9 - Type 2 diabetes mellitus without complications Plan: A1c?5.7%?on?metformin.??Goal?is?less?than?7.0% Good?control Continue?current?medication?regimen (2) Hypertension: Code(s): I10 - Essential (primary) hypertension Plan: Blood?pressure?is?controlled.??Goal?is?less?than?140/90 Continue?current?medication?regimen Patient?appears?mildly?dry?today - increase?hydration (3) Lumbar radiculopathy: Code(s): M54.16 - Radiculopathy, lumbar region Plan: Ongoing?lumbar?radiculopathy Decreased?ability?to?exercise?and?walk.??Uses?a?cane Encouraged?upper?extremity?exercises?such?as?shadow?boxing. He?is?followed?by?physiatry?and?lumbar?MRI?is?acquired?but?report?is?pending Continued?follow-up?with?physiatry?as?recommended (4) Difficulty swallowing: Code(s): R13.10 - Dysphagia, unspecified Plan: MRI?shows?mass?at?pterygopalatine?fossa?and?left?pterygomaxillary?fissure - likely?causing?mass?effect?and?difficulty?swallowing. Now?followed?by?ENT Has?seen?speech?therapy?and?recommendations?in?EMR Patient?should?review?recommendations?and?follow. Follow-up?with?ENT?as?recommended Follow-up?with?Neurology (5) Yeast infection of the skin: Code(s): B37.2 - Candidiasis of skin and nail Orders: Orders Comprehensive [place]. Panel Fast Today Z00.00 - Encounter for general adult medical examination without abnormal findings Prostate Specific Antigen Scr Today Z12.5 - Encounter for screening for malignant neoplasm of prostate TSH reflex Free T4 Today Z00.00 - Encounter for general adult medical examination without abnormal findings UA and rflx microscopic Today Z00.00 - Encounter for general adult medical examination without abnormal findings Complete Blood Count Auto Diff Today Z00.00 - Encounter for general adult medical examination without abnormal findings Lipid Panel Today Z00.00 - Encounter for general adult medical examination without abnormal findings Microalbumin, Random (w Creat) Today I10 - Essential (primary) hypertension Coding Level of Care Code Est Pt Level 4 (64006) Diagnoses Diabetes E11.9 Hypertension I10 Lumbar radiculopathy M54.16 Difficulty swallowing R13.10 Yeast infection of the skin B37.2
[2024-04-06 08:26] VITALS: BP 104/68; PULSE 93; RESP 16; TEMP 36.4; O2SAT 98; BMI 38.0
== END 2024-04-06 08:58 | disposition home or self-care (01) ==
PROVIDERS: PCP Family Medicine; Visit Provider Family Medicine
DX: E11.9 Type 2 diabetes mellitus without complications (principal); I10 Essential (primary) hypertension; M54.16 Radiculopathy, lumbar region; R13.10 Dysphagia, unspecified; B37.2 Candidiasis of skin and nail
CPT/HCPCS: 99214

== ENCOUNTER 2024-05-05 10:32 | Outpatient (AMB) | payer OTHER, SELFPAY ==
[2024-05-05 11:04] VITALS: BP 128/74; PULSE 72; O2SAT 99; BMI 38.3
--- NOTE | 2024-05-05 11:04 | MHC.OFFVIS ---
Vital Signs 05/05/24 11:04 Height 6 ft Weight 282 lb 3.067 oz BMI 38.3 BP 128/74 Blood Pressure Location Lt brachial Position Sitting Pulse 72 Pulse Source Pulse Oximeter Pulse Oximetry (%) 99 Oxygen Delivery Method Room Air Intake Visit Reasons: Somnolence Intake Note: pt is here for follow up and states he does wake up with the mask off and on some nights he is not putting it back on. He states that he is woken around 3-4 o'clock by his dog, and then both he and his dog, go to sleep on the couch, where he does not put the mask on. On an average he does use the CPAP mask for more than 4 hours per night. He has some ask issue with air leak, and has to tighten the straps. Weight underwood there has been no change as he is not able to do much walking or exercise. His breathing stays well and stable, he has hardly needed to use Combivent Respimat which is his rescue inhaler. Does complain of frequent dry cough which is now worse in the last week or so. This is without any infection and most likely is due to change in the weather. Manager Copy Required: No Allergies erythromycin base Allergy (Mild, Verified 05/05/24 11:10) Confusion clonidine Adverse Reaction (Severe, Verified 05/05/24 11:10) Vomiting [facility] Medical History Obesity (BMI 30-39.9) COPD (chronic obstructive pulmonary disease) KELSY on CPAP Morbid obesity Torn rotator cuff Diabetes High cholesterol Hypertension Surgical History Stented coronary artery History of carpal tunnel surgery Family History Other Mental health disorder Substance abuse Social History Housing: House Patient Tobacco Use Status: Former Tobacco user e-Cigarette/Vaping Use: Never Used Second Hand Smoke Exposure: No service: No Current occupational status: unemployed Current occupational exposures/hazards: No Cognitive needs: No Hearing needs: No Vision needs: Yes Review of Systems Const All systems reviewed & are unremarkable except as noted in HPI and below Eyes Reports no additional complaints ENT Reports no additional complaints Card Denies chest pain, Denies irregular heart rhythm and Denies leg edema Resp Reports as per HPI GI Reports heartburn (GERD symptoms being treated) Reports difficulty urinating and Reports nocturia Musc Reports numbness (Lower extremity) and Reports other (Carpal tunnel syndrome both wrists) Skin/Breast Reports dry skin Neuro Reports numbness (Lower extremity) and Reports restless legs Psych Reports anxiety and Reports depression Endo Reports other (Being treated for diabetes mellitus) Ludin/Lymph Reports no additional complaints Aller/Immun Reports no additional complaints Physical Exam Vital Signs: Last Vital Signs Pulse 72 05/05/24 11:04 BP 128/74 05/05/24 11:04 Pulse Ox 99 05/05/24 11:04 Oxygen Delivery Method Room Air 05/05/24 11:04 BMI result Body Mass Index 38.3 This gentleman is grossly obese, with a round face, and a fat neck. Const General: comfortable, no acute distress, alert and awake Orientation/consciousness: patient oriented x3 HEENT Head: Yes normal to inspection General nose exam: No nasal polyps present and No nasal discharge present Face and sinus: Yes sinuses nontender Mouth: oropharynx normal (Oropharynx is crowded, Mallampati class 4) Throat: Yes posterior oropharynx normal Eyes General: appearance normal, both eyes and all related structures Neck Neck: Yes normal visual inspection, Yes no lymphadenopathy, Yes trachea midline and Yes no JVD Thyroid: Thyroid normal Chest Chest palpation & inspection: normal inspection of the chest, normal palpation of entire chest wall and no tenderness Resp Other: Percussion note not perceptible because of the thick and obese chest wall. Breath sounds are generally distant. especially over the basilar areas No audible wheezes or rhonchi, or crepitations. Cardio Palpation: PMI not normal (Not palpable) Rate: regular rate Rhythm: regular rhythm Heart sounds: no gallops and no murmurs GI Palpation (GI): Soft to palpation, Tenderness to palpation present (GI), No hepatosplenomegaly present, Palpable mass present and Other GI palpation findings present (Abdomen is grossly obese and slightly protuberant) Auscultation: normal bowel sounds Back/Spine/Pelvis Thoracic/Lumbar Spine: thoracic and lumbar spine normal to inspection and thoraco-lumbar ROM limited Skin General skin exam: no rashes or lesions noted and dry skin Neuro General: patient oriented x3 and no focal motor deficits Cranial nerves: Yes CN's II-XII intact bilaterally Extrem General: Yes normal to inspection, Yes no clubbing, cyanosis or edema and Yes no calf tenderness Psych Appearance: grossly normal and well kempt Speech and movement: Normal speech and movement present Results Reviewed Results Reviewed: Compliance report for the last 30 nights is reviewed. Used 27/30 nights, 90%. Average usage per night 5 hours 39 minutes. There is air leak issue with maximum air leak of 119 L/minute. Residual AHI 1.7 Assessment & Plan Assessment & Plan (1) Obesity (BMI 30-39.9): Comment: THIS IS A CHRONIC PROBLEM IN HIS CASE, PATIENT IS FULLY AWARE, HE TRIES TO LIMIT CALORIES INTAKE. It is BECAUSE OF LOW LEVEL OF ACTIVITY THAT HE CANNOT LOSE WEIGHT. Code(s): E66.9 - Obesity, unspecified Category: Medical Plan: Encouraged to cut down the intake of carbs. Also encouraged to do walking at least 1-2 miles every day. (2) COPD (chronic obstructive pulmonary disease): Comment: PATIENT HAS BEEN TREATED A CASE OF CHRONIC OBSTRUCTIVE PULMONARY DISEASE/BRONCHIAL ASTHMA. I EXPLAINED TO HIM THE RESULTS OF PULMONARY FUNCTION TEST BEING ALMOST NORMAL. HE DOES NOT BELIEVE IT AND SAYS ,IF HE DOES NOT USE COMBIVENT RESPIMAT HE GETS MORE COUGH AND SHORTNESS OF BREATH. Code(s): J44.9 - Chronic obstructive pulmonary disease, unspecified Category: Medical Plan: Advised him to use cough drops to keep his cough down to minimal. Use Combivent Respimat Q 6 hours only if there is severe cough or wheezing. (3) KELSY on CPAP: Comment: PATIENT DOES HAVE OBSTRUCTIVE SLEEP APNEA FOR MANY YEARS, HE HAS BEEN USING CPAP REGULARLY, PRESSURE 14 CM, FULLFACE MASK. HE BENEFITS FROM THE USE OF CPAP. Code(s): G47.33 - Obstructive sleep apnea (adult) (pediatric); Z99.89 - Dependence on other enabling machines and devices Category: Medical Plan: Advised to continue using CPAP every night. Tighten the straps as much as possible. Keep the mask on at least for 5 hours every night. Coding Level of Care Code Est Pt Level 3 (91556) Diagnoses Obesity (BMI 30-39.9) E66.9 COPD (chronic obstructive pulmonary disease) J44.9 KELSY on CPAP G47.33; Z99.89
== END 2024-05-05 11:27 | disposition home or self-care (01) ==
PROVIDERS: PCP Family Medicine; Visit Provider Internal Medicine
DX: E66.9 Obesity, unspecified (principal); J44.9 Chronic obstructive pulmonary disease, unspecified; G47.33 Obstructive sleep apnea (adult) (pediatric); Z99.89 Dependence on other enabling machines and devices
CPT/HCPCS: 99213

== ENCOUNTER → 2024-05-05 10:32 | Outpatient (BNVA) | payer OTHER, SELFPAY | PROVIDERS: PCP Family Medicine; Visit Provider Internal Medicine | DX: J44.9 Chronic obstructive pulmonary disease, unspecified (principal); E66.9 Obesity, unspecified; G47.33 Obstructive sleep apnea (adult) (pediatric); Z99.89 Dependence on other enabling machines and devices | CPT/HCPCS: 99212 ==

== ENCOUNTER 2024-06-02 09:48 | Outpatient (AMB) | payer OTHER, SELFPAY ==
--- NOTE | 2024-06-02 09:51 | A.OFFVIS_ITS ---
Intake Visit Reasons: OV- Lumbar Spine MRI review Intake Note: Mina is a 49 year old male who presents today for an MRI review of his lumbar spine done on 03/31/2024. He presents today with a cane for ambulation. Patient reports today his back is feeling sore. He is unable to take any pain medication he says because of his heart medications. Allergies erythromycin base Allergy (Mild, Verified 06/02/24 09:54) Confusion clonidine Adverse Reaction (Severe, Verified 06/02/24 09:54) Vomiting Medication List - Last Reconciled 06/02/24 by Mirna Easley MD amitriptyline 50 mg PO BEDTIME amlodipine 10 mg PO DAILY 90 days aripiprazole 5 mg PO DAILY 90 days aspirin (Adult Low Dose Aspirin) 81 mg PO DAILY 90 days bupropion HCl XL 150 mg PO QAM 90 days bupropion HCl XL 300 mg PO DAILY 90 days carvedilol 25 mg PO Q12H 90 days cholecalciferol (vitamin D3) 25 mcg PO DAILY 90 days cyanocobalamin (vitamin B-12) 1,000 mcg PO DAILY 90 days duloxetine 30 mg PO DAILY 90 days escitalopram oxalate 5 mg PO DAILY gabapentin 300 mg PO TID 30 days hydroxyzine HCl 25 mg PO TID indomethacin 25 mg PO BID 30 days ipratropium-albuterol 20-100 mcg/actuation (Combivent Respimat) 1 puff inhalation Q6H PRN isosorbide mononitrate ER 30 mg PO DAILY 90 days loratadine 10 mg PO DAILY 90 days metformin 500 mg PO BID 90 days nystatin 5 mL PO DAILY 10 days omeprazole 20 mg PO BID 90 days pramipexole 0.5 mg PO BEDTIME 30 days rosuvastatin 40 mg PO DAILY 90 days tamsulosin 0.4 mg PO DAILY 90 days topiramate 300 mg PO DAILY triamcinolone acetonide 0.1% 1 appl topical DAILY 30 days umeclidinium-vilanterol 62.5-25 mcg/actuation (Anoro Ellipta) 1 inh inhalation Q24H 30 days HPI Comments Details: Patient 1st seen 12/16/2023. [place], [place], [place], had xray of lumbar and was told over to the right and recommended to go to chiropractor. Confirms that he is not aware of any previous fracture of the lower/lumbar spine. Pain on right side, would radiate to thigh only on occasion. He has RLS and DM baseline so he attributes paresthesia to those. Been using a cane, says his gait staggers, been happening for the last 2 months prior to any for sign. Lumbar x-ray done in the office showed L5-S1 disc space loss. He thinks he has a new pulled muscle from bending/reaching towards leg 2 nights ago, felt something pulled. Has not been able to bend well since then. No new numbness on right leg. Overall PT has not helped. Same right sided back pain since I saw him, which he says can radiate to posterior thigh and also affect right lateral upper back/flank area. Overall had 8 sessions of PT, this year 2023. Still same pain, not improved. Right sided, but has not been radiating. No new numbness or weakness. But needing the cane for staggering which he says from April 2023. No bladder/bowel changes. [facility] Medical History Obesity (BMI 30-39.9) COPD (chronic obstructive pulmonary disease) KELSY on CPAP Morbid obesity Torn rotator cuff Diabetes High cholesterol Hypertension Surgical History Stented coronary artery History of carpal tunnel surgery Family History Other Mental health disorder Substance abuse Social History Housing: House Patient Tobacco Use Status: Former Tobacco user e-Cigarette/Vaping Use: Never Used Second Hand Smoke Exposure: No service: No Current occupational status: unemployed Current occupational exposures/hazards: No Cognitive needs: No Hearing needs: No Vision needs: Yes Physical Exam Constitutional: Patient appears to be in no acute distress, well nourished and well developed. Patient was appropriately conversant and oriented. Good historian. MSK: No specific abnormalities found on inspection of the spine and all extremities. No pain with palpation over the lumbar area. No tenderness on SI or GT. Lumbar ROM was full. Bilateral hip, knee and ankle ROM WNL. No ligamentous laxity or crepitance. No increased effusion. Straight-leg raising test negative. FABERE test negative. Strength is 5/5 in all muscle groups tested. No increased tone noted. Neurological: Neurologic examination of the upper and lower extremities was nonfocal with intact sensation, muscle stretch reflexes and without focal motor deficits . Don?s negative bilaterally. Babinski was down going bilaterally. Clonus was negative. Gait is antalgic without loss of balance. Uses cane. Results Reviewed Results Reviewed: Ordering Physician: Mirna Shaw Date of Service: 03/31/24 Procedure(s): MR lumbar spine wo con Accession Number(s): [id number] cc: Leland Trujillo MD; Mirna Shaw~ EXAMINATION: MR LUMBAR SPINE WITHOUT CONTRAST CLINICAL INFORMATION: Chronic low back pain. Lifting injury in 1994. Restless leg syndrome. Evaluate for L5-S1 disc herniation. COMPARISON: No prior MRI. *Lumbar 12/14/2023. TECHNIQUE: Multiplanar multisequence MR imaging of the lumbar spine was done without IV contrast. Exam performed on a Siemens 1.5 Renetta magnet. Standard sequences utilized. FINDINGS: CORONAL ALIGNMENT: -There is a very mild levoconvex scoliosis, estimated Wisdom angle 5 degrees. SAGITTAL ALIGNMENT: -Normal lordosis. -Minimal 2 mm stairstep retrolisthesis L3 on L4, L4 on L5, and L5 on S1. -Alignment otherwise anatomic. LUMBOSACRAL JUNCTION: -Normal. There are 5 [id number] lumbar-type vertebral bodies. VERTEBRAL BODIES/BONE MARROW: -No compression deformities. -No infiltrating abnormal bone marrow signal. -Grossly no bone marrow edema present. DISCS: -There is minimal loss of disc height and signal at L1-2 and L3-4. -There is moderate loss at L4-5 and L5-S1. SPINAL CANAL: -There is mild congenital spinal narrowing notably spanning L4-S1. This will exacerbate acquired spondylolisthesis. CONUS MEDULLARIS: -Terminates at superior endplate of T12.. Morphology and signal is normal. INTRADURAL NERVE ROOTS: -Within normal limits. Axial Disc Space Images: T12-L1: No central canal or neural foraminal narrowing. Normal facets. L1-L2: Right paracentral and lateral disc extrusion, mildly extending into the right neural foramen. This measures an estimated 4 mm in AP by 18 mm in transverse by 10 mm in craniocaudad dimension. Coupled with mild hypertrophic degenerative facet changes and mild posterior ligamentous infolding, this is resulting in mild to moderate central canal narrowing, moderate right subarticular recess narrowing, with contact and mild posterior deviation of the traversing right L2 nerve roots. There is mild right neural foraminal narrowing. L2-L3: No central canal or neural foraminal narrowing. Mild hypertrophic degenerative facet changes. L3-L4: Minimal shallow concentric disc bulge with central annular fissuring, mild to moderate bilateral hypertrophic degenerative facet changes, mild posterior ligamentous thickening/infolding, resulting in mild central canal narrowing, mild bilateral subarticular recess narrowing, and mild to moderate bilateral neural foraminal narrowing. No definite nerve root impingement or mass effect. L4-L5: Diffuse concentric disc bulge present with central annular fissuring, and a superimposed right foraminal extrusion of disc material. Moderate hypertrophic degenerative facet changes bilaterally, with mild posterior ligamentous thickening/infolding. Combination of findings is resulting in mild to moderate central canal narrowing, moderate bilateral subarticular recess narrowing right greater than left. There is mild contact but no definite impingement of the traversing bilateral L5 nerve roots. There is moderate left greater than right neural foraminal narrowing, with contact but no impingement of the exiting left L4 root. L5-S1: There is a diffuse bulging disc present, concentrically involving both lateral and foraminal zones, and extending left lateral to foramen. There is central annular fissuring present. There are moderate hypertrophic degenerative facet changes bilaterally, with superimposed congenital spinal narrowing. There is moderate central canal narrowing, mild bilateral subarticular recess narrowing bilaterally with contact but no impingement of the bilateral traversing S1 roots, and mild bilateral neural foraminal narrowing although there appears to be disc material contacting the exiting roots in the lateral to foramen zones left greater than right. IMAGED SI JOINTS: Mild degenerative arthritis bilaterally with ventral osteophytes inferiorly involving the synovial aspects. Low T1 signal may indicate mild periarticular edema in the inferior joints bilaterally. PARAVERTEBRAL AND INCLUDED EXTRASPINAL SOFT TISSUES: -Imaged kidneys and aorta are normal. -No paraspinous or paravertebral muscular abnormalities. -No retroperitoneal adenopathy. -Normal adrenal glands. MR/MR lumbar spine wo con IMPRESSION: 1. Most notable abnormality is a disc extrusion oriented in the right paracentral, lateral, and foraminal regions at L1-2, resulting in moderate right subarticular recess narrowing with contact and mild deviation of the traversing right L2 nerve roots. 2. Diffuse bulging discs at L3-4, L4-5, and L5-S1 as described. No definite nerve root impingement evident at L5-S1 identified. See above. 3. Additional ancillary findings as discussed in the body of the report. Electronically signed by: Jose Meyer MD 04/15/2024 04:01 PM EDT Assessment & Plan Assessment & Plan (1) Lumbar disc herniation: Code(s): M51.26 - Other intervertebral disc displacement, lumbar region Category: Medical (2) Right lumbar radiculitis: Code(s): M54.16 - Radiculopathy, lumbar region Category: Medical Plan We looked at lumbar MRI images together. Visualized the right disc protrusion L1-2. Possibly the source of his chronic recurrent right-sided back pain. He has done reasonable conservative management including physical therapy without relief. It would be reasonable to trial right L1-2 transforaminal epidural injection. He understands that I will have to refer him to pain management for such procedure. Assessment and plan discussed with patient, and patient was agreeable. All questions were answered thoroughly. I would be happy to see him back for follow up after injection. Mirna Easley MD, BEE Board Certified, [place] Board of Physical Medicine and Rehabilitation (ABPMR) Board Certified, [place] Board [employer] Electrodiagnostic [employer] (ABEM) Orders: Referrals Pain Management Referral M51.26 - Other intervertebral disc displacement, lumbar region, M54.16 - Radiculopathy, lumbar region Coding Level of Care Code Est Pt Level 4 (55861) Diagnoses Lumbar disc herniation M51.26 Right lumbar radiculitis M54.16
== END 2024-06-02 10:13 | disposition home or self-care (01) ==
LOC: HO.HOS 09:49
PROVIDERS: PCP Family Medicine; Visit Provider Physical Medicine & Rehabilitation
DX: M51.26 Other intervertebral disc displacement, lumbar region (principal); M54.16 Radiculopathy, lumbar region
CPT/HCPCS: 99214

== ENCOUNTER → 2024-06-02 09:48 | Outpatient (BNVA) | payer OTHER, SELFPAY | PROVIDERS: PCP Family Medicine; Visit Provider Physical Medicine & Rehabilitation | DX: G25.81 Restless legs syndrome (principal); M51.26 Other intervertebral disc displacement, lumbar region; M54.16 Radiculopathy, lumbar region | CPT/HCPCS: 99212 ==

== ENCOUNTER 2024-06-16 09:23 | Outpatient (AMB) | payer OTHER, SELFPAY ==
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
[2024-06-16 09:34] VITALS: BP 148/84; PULSE 104; RESP 16; O2SAT 98; BMI 39.6
== END 2024-06-16 09:54 | disposition home or self-care (01) ==
PROVIDERS: PCP Family Medicine; Visit Provider Anesthesiology
DX: E66.01 Morbid (severe) obesity due to excess calories (principal); M46.1 Sacroiliitis, not elsewhere classified; M53.3 Sacrococcygeal disorders, not elsewhere classified; G89.4 Chronic pain syndrome
CPT/HCPCS: 99204

== ENCOUNTER → 2024-06-16 09:23 | Outpatient (BNVA) | payer OTHER, SELFPAY | PROVIDERS: PCP Family Medicine; Visit Provider Anesthesiology | DX: M46.1 Sacroiliitis, not elsewhere classified (principal); M53.3 Sacrococcygeal disorders, not elsewhere classified; E66.01 Morbid (severe) obesity due to excess calories; G89.4 Chronic pain syndrome; Z68.39 Body mass index [BMI] 39.0-39.9, adult | CPT/HCPCS: 99202 ==

== ENCOUNTER 2024-06-22 08:35 | Outpatient (REF) | payer OTHER, SELFPAY ==
[2024-06-22 08:56] LABS: MANUAL DIFF FLAG NO
[2024-06-22 09:36] LABS: Appearance Urine Clear; Color Urine Yellow; Glucose Urine UA Negative (Negative); Leukocyte Esterase Urine Negative (Negative); Nitrite Urine Negative (Negative); PH 6.5 (5.0-9.0); Specific Gravity - Urine 1.015 (1.005-1.025); Urine Blood Negative (Negative); Urine Ketones Negative (Negative); Urine Protein Negative (Neg-Trace)
[2024-06-22 09:36] LABS: Basophils Absolute Auto 0.1 X10*3/uL (0.0-0.2); Basophils Percent Auto 1.1 % (0-2); Eosinophils Absolute Auto 0.1 X10*3/uL (0.0-0.4); Eosinophils Percent Auto 1.8 % (0-4); Hemoglobin 13.5 g/dl (14.0-18.0); Imm Gran Abs Auto 0.03 X10*3/uL (0.00-0.03); Imm Gran Pct Auto 0.5 % (0.0-0.4); Lymphocytes Absolute Auto 1.9 X10*3/uL (1.2-4.9); Lymphocytes Percent Auto 34.6 % (20-40); Mean Corpuscular HGB Conc 32.9 g/dl (31.0-36.0); Mean Corpuscular Hemoglobin 28.8 pg (27.0-33.0); Mean Corpuscular Volume 87.6 fL (80.0-98.0); Mean Platelet Volume 10.1 fL (9.4-12.4); Monocytes Absolute Auto 0.4 X10*3/uL (0.1-1.2); Monocytes Percent Auto 7.5 % (2-11); Neutrophils Absolute Auto 3.1 x10*3/uL (2.0-8.3); Neutrophils Percent Auto 54.5 % (45-73); Platelet Count 185 X10*3/uL (160-400); Red Blood Count 4.68 X10*6/uL (4.60-5.80); Red Cell Distribution Width 13.1 % (11.0-16.0); White Blood Count 5.6 X10*3/uL (4.8-10.8)
[2024-06-22 10:02] LABS: Creatinine Urine 86.36 mg/dL; Microalbumin Urine < 5.0 mg/L
[2024-06-22 10:10] LABS: Alanine Aminotransferase 32 U/L (0-40); Albumin Level 3.9 g/dL (3.5-5.0); Alkaline Phosphatase 74 U/L (39-117); Anion Gap 12 (12-20); Aspartate Amino Transferase 32 U/L (5-37); Bilirubin Total 0.2 mg/dL (0.0-1.0); Blood Urea Nitrogen 19 mg/dL (9-16); Calcium 9.6 mg/dL (8.4-10.2); Carbon Dioxide 25 mmol/L (22-29); Chloride 108 mmol/L (96-108); Cholesterol 138 mg/dL (<200); Estimated Glomerular Filt Rate 56; Glucose Fasting 112 mg/dL (60-99); HDL Cholesterol 33 mg/dL (>40); LDL Cholesterol Calculated 38 mg/dL (<100); Potassium 4.9 mmol/L (3.3-5.1); Sodium 140 mmol/L (135-145); Total Protein 6.8 g/dL (6.5-8.0); Triglycerides 337 mg/dL (<150)
[2024-06-22 10:28] LABS: Prostate Specific Antigen Scr < 0.10 ng/mL (<0.05-4.0)
== END 2024-06-22 08:36 | disposition home or self-care (01) ==
LOC: HO.LAB 08:35
PROVIDERS: PCP Family Medicine; Visit Provider Family Medicine
DX: Z00.00 Encounter for general adult medical examination without abnormal findings (principal); I10 Essential (primary) hypertension; Z12.5 Encounter for screening for malignant neoplasm of prostate
CPT/HCPCS: 36415; 80053; 80061; 81003; 82570; 84153; 84443; 85025

== ENCOUNTER 2024-07-06 09:09 | Outpatient (AMB) | payer OTHER, SELFPAY ==
--- NOTE | 2024-07-06 09:23 | A.OFFPC_ITS ---
Vital Signs 07/06/24 09:26 Height 6 ft Weight 300 lb 2 oz BMI 40.7 BP 110/70 Blood Pressure Location Rt brachial Position Sitting Respiration 18 Pulse 90 Pulse Source Pulse Oximeter Pulse Oximetry (%) 97 Oxygen Delivery Method Room Air Intake Visit Reasons: f/u diabetes, hypertension Intake Note: f/u DM and htn Allergies erythromycin base Allergy (Mild, Verified 07/06/24 09:23) Confusion clonidine Adverse Reaction (Severe, Verified 07/06/24 09:23) Vomiting Medication List - Last Reconciled 07/06/24 by Leland Trujillo MD amitriptyline 50 mg PO BEDTIME amlodipine 10 mg PO DAILY 90 days aripiprazole 5 mg PO DAILY 90 days aspirin (Adult Low Dose Aspirin) 81 mg PO DAILY 90 days bupropion HCl XL 150 mg PO QAM 90 days bupropion HCl XL 300 mg PO DAILY 90 days carvedilol 25 mg PO Q12H 90 days cholecalciferol (vitamin D3) 25 mcg PO DAILY 90 days cyanocobalamin (vitamin B-12) 1,000 mcg PO DAILY 90 days duloxetine 30 mg PO DAILY 90 days escitalopram oxalate 5 mg PO DAILY gabapentin 300 mg PO TID 30 days hydroxyzine HCl 25 mg PO TID indomethacin 25 mg PO BID 30 days ipratropium-albuterol 20-100 mcg/actuation (Combivent Respimat) 1 puff inhalation Q6H PRN isosorbide mononitrate ER 30 mg PO DAILY 90 days loratadine 10 mg PO DAILY 90 days metformin 500 mg PO BID 90 days omeprazole 20 mg PO BID 90 days pramipexole 0.5 mg PO BEDTIME 30 days rosuvastatin 40 mg PO DAILY 90 days tamsulosin 0.4 mg PO DAILY 90 days topiramate 300 mg PO DAILY triamcinolone acetonide 0.1% 1 appl topical DAILY 30 days umeclidinium-vilanterol 62.5-25 mcg/actuation (Anoro Ellipta) 1 inh inhalation Q24H 30 days Tobacco use date assessed: 04/06/24 Dental Screening Dental Screen Date: 04/06/24 HPI f/u diabetes, hypertension HPI Details 49 y/o male presents to f/u diabetes, hy pertension. Last A1c 5.7% on metformin. A1c today 07/06/24 6.5%. Had seen Dr. Smith 06/16/24 for chronic pain syndrome. MRI had documented advanced sacroilitis bilaterally. Offered pt joint injection. Reports he had an abnormal MRI in September which had seen incidental note of a 1.5 x 1.2 cm ovoid lesion in L pterygomaxillary fissure. He notes he had a more recent MRI. HPI Comments History of Present Illness Details Documentation assistance for Leland Trujillo MD, was provided by Bruce Salinas, Auto Transmission Technician on 07/06/2024 at 9:47 AM EST. I, Dr. Trujillo, have read, observed, and verified documentation. [facility] Medical History Obesity (BMI 30-39.9) COPD (chronic obstructive pulmonary disease) KELSY on CPAP Morbid obesity Torn rotator cuff Diabetes High cholesterol Hypertension Surgical History Stented coronary artery History of carpal tunnel surgery Family History Other Mental health disorder Substance abuse Social History Housing: House Patient Tobacco Use Status: Former Tobacco user e-Cigarette/Vaping Use: Never Used Second Hand Smoke Exposure: No service: No Current occupational status: unemployed Current occupational exposures/hazards: No Cognitive needs: No Hearing needs: No Vision needs: Yes Questionnaire PHQ-9 Over the last 2 weeks, how often have you been bothered by any of the following problems? 1. Little interest or pleasure in doing things: nearly every day 2. Feeling down, depressed, or hopeless: nearly every day 3. Trouble falling or staying asleep, or sleeping too much: nearly every day 4. Feeling tired or having little energy: nearly every day 5. Poor appetite or overeating: nearly every day 6. Feeling bad about yourself - or that you are a failure or have let yourself or your family down: nearly every day 7. Trouble concentrating on things, such as reading the newspaper or watching television: nearly every day 8. Moving or speaking so slowly that other people could have noticed. Or the opposite - being so fidgety or restless that you have been moving around a lot more than usual: nearly every day 9. Thoughts that you would be better off or of hurting yourself in some way: nearly every day Total score: 27 Source: Developed by Drs. Arnoldo Carreno, Dyan Edwards, Alvarez Jose and colleagues, with an educational shanna from [employer]. Thrive Questionnaire Date Thrive assessed: 06/29/24 I am a: Patient What is your living situation today?: I have a steady place to live Within the past 12 months, did the food you bought not last and you didn't have the money to get more?: Never true Within the past 12 months, did you worry whether your food would run out before you got money to buy more?: Never true Do you have trouble paying for medicines?: No Do you have trouble getting transportation to medical appointments?: No Do you have trouble paying your heating and electricity bill?: No Do you have trouble taking care of your child, family member or friend?: No Do you have trouble with day-to-day activities such as bathing, preparing meals, shopping, managing finances, etc.?: Yes Are you currently unemployed and looking for a job?: Yes Are you interested in more education?: No Please select the resources that you would like help with: Transportation Currently or been in a relationship where the following occur: No concerns reported THRIVE Score: 0 AUDIT C Alcohol Use Questionnaire (AUDIT-C) 1. How often do you have a drink containing alcohol?: Never 2. How many drinks containing alcohol do you have on a typical day when you are drinking?: 1 or 2 3. How often do you have six or more drinks on one occasion?: Never Total Score: 0 LAMBERTO-7 AMB Questionnaire LAMBERTO-7 Date LAMBERTO - 7 assessed: 07/08/23 Feeling nervous, anxious, or on edge: 3 = Nearly every day Not being able to stop or control worryin = Nearly every day Worrying too much about different things: 3 = Nearly every day Trouble relaxin = Nearly every day Being so restless that it is hard to sit still: 3 = Nearly every day Becoming easily annoyed or irritable: 3 = Nearly every day Feeling afraid as if something awful might happen: 3 = Nearly every day Total LAMBERTO-7 score (0-4 normal; 5-9 mild; 10-14 moderate; 15-21 severe): 21 Source: Developed by Drs. Arnoldo Carreno, Dyan Edwards, Alvarez Jose and colleagues, with an educational shanna from [employer]. Physical exam (Primary Care) Vital Signs: Last Vital Signs Pulse 90 07/06/24 09:26 Resp 18 07/06/24 09:26 BP 110/70 07/06/24 09:26 Pulse Ox 97 07/06/24 09:26 Oxygen Delivery Method Room Air 07/06/24 09:26 BMI result Body Mass Index 40.7 Tobacco/Smoking Status: Tobacco use Status Tobacco use date assessed 04/06/24 07/06/24 09:27 Patient Tobacco Use Status Former Tobacco user 07/06/24 09:27 e-Cigarette/Vaping Use Never Used 07/06/24 09:27 PHQ-9: PHQ-9 Score PHQ-9: Total score 27 07/06/24 09:35 Thrive Assessment: Date of Thrive Assessment Date Thrive assessed 06/29/24 07/06/24 09:27 Currently or been in a relationship where the following occur: No concerns reported Coding Level of Care Code Est Pt Level 4 (52932) Diagnoses Diabetes E11.9 Hypertension I10 Coronary artery disease I25.10 Sacroiliac joint dysfunction of both sides M53.3 Chronic pain syndrome G89.4 Infection of skin L08.9 Abnormal brain MRI R90.89 Assessment & Plan Assessment & Plan (1) Diabetes: Code(s): E11.9 - Type 2 diabetes mellitus without complications Category: Medical Plan: A1c?6.5%.??Good?control.??Goal?is?less?than?7% Continue?metformin?as?prescribed Continue?working?at?diabetic?diet (2) Hypertension: Code(s): I10 - Essential (primary) hypertension Category: Medical Plan: Blood?pressure?is?well?controlled.??Goal?is?less?than?130/80 Continue?current?medications (3) Coronary artery disease: Code(s): I25.10 - Atherosclerotic heart disease of [place] coronary artery without angina pectoris Category: Medical Plan: Stable (4) Sacroiliac joint dysfunction of both sides: Code(s): M53.3 - Sacrococcygeal disorders, not elsewhere classified Category: Medical Plan: Ongoing?back?and?pelvic?pain Followed?by?physiatry?and?pain?management. 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 Patient?says?follow-up?M RI?shows?increase?in?size?of?lesion.??I?do?not?have?reports?and?will?request?the se Orders: Orders UA and rflx microscopic Today Z00.00 - Encounter for general adult medical examination without abnormal findings Microalbumin, Random (w Creat) Today I10 - Essential (primary) hypertension Lipid Panel Today Z00.00 - Encounter for general adult medical examination without abnormal findings Comprehensive [place]. Panel Fast Today Z00.00 - Encounter for general adult medical examination without abnormal findings Complete Blood Count Auto Diff Today Z00.00 - Encounter for general adult m edical examination without abnormal findings Prostate Specific Antigen Scr Today Z12.5 - Encounter for screening for malignant neoplasm of prostate TSH reflex Free T4 Today Z00.00 - Encounter for general adult medical examination without abnormal findings Medications: New clotrimazole 1% 1 appl topical BID 2 weeks 45 grams 1RF
[2024-07-06 09:26] VITALS: BP 110/70; PULSE 90; RESP 18; O2SAT 97; BMI 40.7
--- OUTSIDE RECORDS SUMMARY | 2024-07-06 23:23 | XMS_ITS | Data Portability ---
Author Organization [place] - [facility], [facility] Address [address] [place] [id number] Assessment No assessment recorded. Plan of Treatment Reminders Order Date Submit Date Provider Last Modified By Organization Details Last Modified Time Details Appointments None recorded. Lab None recorded. 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 2023 024 [email or web address] 2 [facility]aryngolog y, [address], [place], [address], 4 12:21:10 Procedures None recorded. Surgeries None recorded. Imaging None recorded. Medication Orders None recorded. Patient TargetsNo targets recorded. Patient InstructionsNo instructions recorded. 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 Referring Physician: Bernarda Bell, Otolaryngology, Encounter Date: 01/20/2024 Results Created Date Observation Date Name Description Value Unit Range Abnormal Flag Note LastModifiedBy Organization Detail LastModifiedTime 01/22/20 24 10/01/2023 MRI, brain , w/o contr ast No observ ation record ed. [email or web address] Not Available 12/26 09:27:19 Result Notes None recorded. Problems Name Problem SNOMED Code Status Onset Date Resolution Date Notes Provider Name and Address Organization Details Recorded Time Dysphagia 47030701 Active 024 BERNARDA Tellez MD [address] [facility],[place] [address], [place], [address] 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 09:13:57 Problem Notes None recorded. Procedures Surgical History Date Name Laterality Status Provider Name and Address Organization Details Recorded Time 01/20/2024 FFL_RE completed BERNARDA BELL MD [address] [facility] [address], [place], [address], [facility] 01/20/2024 09:14:05 Imaging Results Imaging Date Name Status LastModified by Organiz ation Details LastModified Time 10/01/2023 [facility] Information not available 01/22/2024 09:27:19 Procedure Notes None recorded. Medical Equipment None Reported. Medications Name Sig Start Date Stop Date Status Note LastModified by Organization Details LastModified Time silver sulfadiazine 1 % topical cream active Not Available Not Availabl e Not Available metformin 500 mg tablet active Not Available Not Available Not Available atorvastatin 80 mg tablet active Not Available Not Available No t Available carvedilol 25 mg tablet active Not Available Not Available Not Available nystatin 100,000 unit/mL oral suspension active Not Available Not Available N ot Available doxycycline hyclate 100 mg capsule active Not Available Not Available Not Available isosorbide mononitrate ER 30 mg tablet,extended release 24 hr active Not Available Not Availabl e Not Available cyanocobalamin (vit B-12) 1,000 mcg tablet active Not Available Not Available N ot Available clopidogrel 75 mg tablet active Not Available Not Available No t Available aspirin 81 mg tablet,delayed release active Not Available Not Available Not Available amitriptyline 50 mg tablet active Not Available Not Available No t Available pramipexole 0.5 mg tablet active Not Available Not Available No t Available tamsulosin 0.4 mg capsule active Not Available Not Available N ot Available amlodipine 10 mg tablet active Not Available Not Available Not Available cephalexin 500 mg capsule active Not Available Not Available N ot Available indomethacin 25 mg capsule active Not Available Not Available N ot Available gabapentin 300 mg capsule active Not Available Not Available N ot Available omeprazole 20 mg capsule,delayed release active Not Available Not Available Not Available topiramate 100 mg tablet active Not Available Not Available No t Available loratadine 10 mg tablet active Not Available Not Available Not Available hydroxyzine pamoate 25 mg capsule active Not Available Not Available Not Available aripiprazole 10 mg tablet active Not Available Not Available No t Available aripiprazole 15 mg tablet active Not Available Not Available No t Available Vitamin D3 25 mcg (1,000 unit) capsule active Not Available Not Available Not Available rosuvastatin 40 mg tablet active Not Available Not Available No t Available bupropion HCl XL 300 mg 24 hr tablet, extended release active Not Available Not Available Not Available bupropion HCl XL 150 mg 24 hr tablet, extended release active Not Available Not Available Not Available escitalopram 5 mg tablet active Not Available Not Available No t Available duloxetine 30 mg capsule,delayed release active Not Available Not Available Not Available Combivent Respimat 20 mcg-100 mcg/actuation solution for inhalation active Not Available Not Available N ot Available Anoro Ellipta 62.5 mcg-25 mcg/actuation powder for inhalation active Not Available Not Available N ot Available Vitals Date Recorded Body height Body mass index (BMI) Body weight Provider Name and Address Organization Details Last Updated DateTime 01/20/2024 182.88 cm 35.3 kg/m2 568154.02 g Kat Major [place] - [facility] 01/20/2024 09:04:31 Social History None recorded. Functional Status None recorded. Mental Status None recorded. Family History Nothing Reported. Medical History No medical history recorded. Past Encounters Encounter ID Performer Location Encounter Start Date Encounter Closed Date Diagnosis/Indication Diagnosis SNOMED-CT Code Diagnosis ICD10 Code [id number] BERNARDA BELL MD [facility] [address] [phone] 01/20/2024 08:46:56 01/20/2024 09:20:43 Dysphagia 11443406 R13.10 Benign douglas or of soft tissue of head, face and neck 015108465 D21.0 Health Concerns Section Related Observation LastModified by Organization Detai ls LastModified Time None Recorded Concern Status LastModified by Organization Details LastModified Time None Recorded Advance Directives Directive None Recorded Payers Encounter Date Sequence Insurance Name Policy Number Policy Rutledge Covered Member ID Rutledge Member ID Guarantor Name 01/20/2024 1 [facility] NET PLAN (MEDICAID HMO) Mina Lopes [id number] Mina Lopes Notes Date Note Type Note Provider Name and Address Organization Details Recorded Time 01/20/2024 text/html He has a history of dysphagia. He has trouble swallowing dry foods. No trouble swallowing liquids. He has had fairly unremarkable barium swallows. He has had a stumbling gait. MRI brain without contrast was ordered which showed an incidental 1.5x1.2 ovoid T1 hypointense lesion in the left pterygomaxillary fissure (differential includes pleomorphic adenoma vs nerve sheath tumor). He presents for evaluation of both. No epistaxis aside from related to dryness from CPAP. No facial pain besides migraine headaches. Quit smoking 3 years ago. BERNARDA BELL MD [address] [place] [address], [place], [address], [facility] - [facility] 01/20/2024 09:23:32
== END 2024-07-06 16:56 | disposition home or self-care (01) ==
PROVIDERS: PCP Family Medicine; Visit Provider Family Medicine
DX: E11.9 Type 2 diabetes mellitus without complications (principal); I10 Essential (primary) hypertension; I25.10 Atherosclerotic heart disease of native coronary artery without angina pectoris; M53.3 Sacrococcygeal disorders, not elsewhere classified; G89.4 Chronic pain syndrome; L08.9 Local infection of the skin and subcutaneous tissue, unspecified; R90.89 Other abnormal findings on diagnostic imaging of central nervous system

== ENCOUNTER → 2024-07-06 09:09 | Outpatient (BNVA) | payer OTHER, SELFPAY | PROVIDERS: PCP Family Medicine; Visit Provider Family Medicine | DX: E11.9 Type 2 diabetes mellitus without complications (principal); I10 Essential (primary) hypertension; I25.10 Atherosclerotic heart disease of native coronary artery without angina pectoris; M53.3 Sacrococcygeal disorders, not elsewhere classified; G89.4 Chronic pain syndrome; L08.9 Local infection of the skin and subcutaneous tissue, unspecified; R90.89 Other abnormal findings on diagnostic imaging of central nervous system | CPT/HCPCS: 96127; 99212 ==

== ENCOUNTER 2024-07-13 06:56 | Emergency (ER) | payer OTHER, SELFPAY ==
--- NOTE | ~2024-07-13 | CT_ITS ---
EXAMINATION: CT ABDOMEN AND PELVIS WITHOUT CONTRAST CLINICAL INFORMATION: Right flank calculi COMPARISON: None available. TECHNIQUE: Multidetector volumetric imaging was performed of the abdomen and pelvis without contrast. No oral contrast material.. Sagittal and coronal reformatted images were obtained on the technologist's workstation. This CT examination was performed using dose optimization techniques as appropriate, variously including the following: *Automated exposure control *Adjustment of mA and/or kV according to patient size (this includes techniques or standardized protocols for targeted exams where dose is matched to indication/reason for exam; i.e. extremities or head) *Use of iterative reconstruction technique DLP: 984 mGy-cm FINDINGS: KIDNEYS, URETERS AND BLADDER: Mild right hydroureteronephrosis is evident to the level of a punctate faint radiodensity at the right ureterovesical junction. Mild right perirenal infiltration and stranding is noted. There is an additional nonobstructing 3 mm calculus in the interpolar region of the right kidney. No left renal or ureteral calculi are detected. LUNG BASES: Limited lower thoracic images show bibasilar reticulonodular opacities. LIVER, GALLBLADDER, AND BILIARY TREE: The liver is slightly small, and the caudate lobe is prominent.. No focal hepatic lesion or biliary ductal dilatation is evident. The gallbladder is unremarkable. PANCREAS: Unremarkable SPLEEN: Unremarkable ADRENAL GLANDS: Unremarkable GASTROINTESTINAL TRACT: The small and large bowel are unremarkable. The appendix is unremarkable. ABDOMINAL WALL: A subumbilical mesh graft is noted from prior hernia repair. No recurrent hernia is evident. LYMPH NODES: Normal VASCULAR: Unremarkable PELVIC VISCERA: Unremarkable OSSEOUS STRUCTURES: No suspicious bone lesions. Degenerative disc disease and prominent calcified disc osteophyte ridge at L5-S1 contribute to moderate central canal and by foraminal stenosis. CT/CT abdomen pelvis wo IV con IMPRESSION: 1. Mild right hydroureteronephrosis to the level of a punctate calculus at the right ureterovesical junction. 2. Additional nonobstructing 3 mm right renal calculus. 3. Slightly small liver with prominent caudate lobe, perhaps a reflection of hepatic cirrhosis. 4. Degenerative disc disease and calcified disc osteophyte ridge at L5-S1 with moderate central canal and bilateral foraminal stenosis. Fleischner guidelines were followed. Electronically signed by: Alvaro Sanchez MD 07/13/2024 08:29 AM EST
--- NOTE | 2024-07-13 07:02 | ED_ITS ---
HPI - General Adult General Chief complaint: Abdominal Pain Stated complaint: RT FLANK PAIN Time Seen by Provider: 07/13/24 07:02 Source: patient and EMS Mode of arrival: EMS Limitations: no limitations History of Present Illness ED Provider: Clarice Peter PA-C HPI narrative: Patient is a 49 year old assigned male at with a history of CPS, COPD, OA, Eczema, GERD, Migraines, DM, HLD, and HTN presenting to the emergency department today with right sided flank pain. Patient states that he has multiple kidney stones in the past with his most recent one at the beginning of this year. Patient states that he is having some nausea as well. Patient denies any dizziness, lightheadedness, abdominal pain, vomiting, fever, chills, blurry vision, double vision, loss of vision, chest pain, difficulty breathing, shortness of breath, back pain, night sweats, pain with urination, increased urinary frequency, increased urinary urgency, blood in her urine or stool, syncope or a near syncopal episode, recent trauma or falls, bowel incontinence, bladder incontinence, or any other complaints at this time. Onset (ago): hour(s) Location: right (flank) Relieving factors: none Exacerbating factors: none Associated symptoms: nausea/vomiting Treatments prior to arrival: none Related Data Home Medications ?Medication ?Instructions ?Recorded ?Confirmed amitriptyline 25 mg tablet 50 mg PO BEDTIME 01/01/23 07/06/24 escitalopram oxalate 5 mg tablet 5 mg PO DAILY 07/08/23 07/06/24 hydroxyzine HCl 25 mg tablet 25 mg PO TID 10/07/23 07/06/24 topiramate 100 mg tablet 300 mg PO DAILY 10/07/23 07/06/24 ipratropium 20 mcg-albuterol 100 1 puff inhalation Q6H PRN 10/27/23 07/06/24 mcg/actuation mist for inhalation (Combivent Respimat) Previous Rx's ?Medication ?Instructions ?Recorded triamcinolone acetonide 0.1 % 1 appl topical DAILY 30 days #80 04/21/22 topical cream grams bupropion HCl 150 mg 24 hr tablet, 150 mg PO QAM 90 days #90 tabs 05/06/22 extended release aripiprazole 5 mg tablet 5 mg PO DAILY 90 days #90 tabs 05/11/22 bupropion HCl 300 mg 24 hr tablet, 300 mg PO DAILY 90 days #90 tabs 05/11/22 extended release omeprazole 20 mg capsule,delayed 20 mg PO BID 90 days #180 caps 07/23/23 release tamsulosin 0.4 mg capsule 0.4 mg PO DAILY 90 days #90 caps 09/23/23 rosuvastatin 40 mg tablet 40 mg PO DAILY 90 days #90 tabs 10/07/23 aspirin 81 mg tablet,delayed 81 mg PO DAILY 90 days #90 tabs 10/21/23 release (Adult Low Dose Aspirin) duloxetine 30 mg capsule,delayed 30 mg PO DAILY 90 days #90 caps 10/21/23 release umeclidinium 62.5 mcg-vilanterol 1 inh inhalation Q24H 30 days #60 12/22/23 25 mcg/actuation powdr for ea inhalation (Anoro Ellipta) amlodipine 10 mg tablet 10 mg PO DAILY 90 days #90 tabs 03/18/24 isosorbide mononitrate 30 mg 30 mg PO DAILY 90 days #90 tabs 04/25/24 tablet,extended release 24 hr cholecalciferol (vitamin D3) 25 25 mcg PO DAILY 90 days #90 caps 05/31/24 mcg (1,000 unit) capsule metformin 500 mg tablet 500 mg PO BID 90 days #180 tabs 06/01/24 pramipexole 0.5 mg tablet 0.5 mg PO BEDTIME 30 days #30 tabs 06/09/24 gabapentin 300 mg capsule 300 mg PO TID 30 days #90 caps 06/10/24 indomethacin 25 mg capsule 25 mg PO BID 30 days #60 caps 06/30/24 loratadine 10 mg tablet 10 mg PO DAILY 90 days #90 tabs 06/30/24 clotrimazole 1 % topical cream 1 appl topical BID 2 weeks #45 07/06/24 grams carvedilol 25 mg tablet 25 mg PO Q12H 90 days #180 tabs 07/08/24 cyanocobalamin (vitamin B-12) 1,000 mcg PO DAILY 90 days #90 tabs 07/08/24 1,000 mcg tablet prednisone 20 mg tablet 20 mg PO DAILY 7 days #7 tabs 07/13/24 tamsulosin 0.4 mg capsule 0.4 mg PO DAILY #7 caps 07/13/24 Allergies Allergy/AdvReac Type Severity Reaction Status Date / Time erythromycin base Allergy Mild Confusion Verified 07/13/24 07:10 clonidine AdvReac Severe Vomiting Verified 07/13/24 07:10 Review of Systems 2 Constitutional: Constitutional: Reports no additional constitutional complaints, Denies chills, Denies fever(s) and Denies night sweats Eyes: Eyes: Reports no additional eye complaints, Denies blurry vision, Denies change in vision, Denies diplopia, Denies eye discharge, Denies loss of vision and Denies eye pain ENT: Denies dizziness Cardiovascular: Cardiovascular: Reports no additional cardiovascular complaints, Denies chest pain, Denies lightheadedness, Denies Loss of Consciousness and Denies dyspnea Respiratory: Respiratory: Reports no additional respiratory complaints and Denies dyspnea Gastrointestinal: Gastrointestinal: Reports no additional gastrointestinal complaints, Denies abdominal pain, Denies melena, Denies hematochezia, Denies change in bowel habits, Denies change in stool character, Reports nausea and Denies vomiting Genitourinary: Genitourinary: Reports no additional male genitourinary complaints, Denies hematuria, Denies oliguria, Denies difficulty urinating, Denies dysuria, Reports flank pain (right sided), Denies urinary frequency, Denies urinary hesitancy, Denies urinary incontinence and Denies urinary urgency Musculoskeletal: Musculoskeletal: Reports no additional musculoskeletal complaints, Denies numbness and Denies tingling Neurologic: Denies dizziness, Denies loss of vision, Denies numbness and Denies tingling Psychiatric: Psychiatric: Reports no additional psychiatric complaints Endocrine: Endocrine: Reports no additional endocrine complaints Hematologic/Lymphatic: Hematologic/Lymphatic: Reports no additional hematologic/lymphatic complaints Allergic/Immunologic: Allergic/Immunologic: Reports no additional allergic/immunologic complaints [facility] Past Medical History Attestation statement: The following information was validated with the patient. Source: old records reviewed and nursing notes reviewed Medical History Adult general medical exam Laboratory exam ordered as part of routine general medical examination Imbalance Left-sided chest wall pain Dizziness Fatigue Unsteady gait Yeast infection of the skin Cough Abnormal lung sounds Abnormal CT lung screening Headache Puncture wound of scalp Left knee pain Sacroiliitis Osteoarthritis of knee Infection of skin Exposure to potential infection Urinary hesitancy Screening for prostate cancer Screening for colon cancer Difficulty swallowing Decreased visual acuity Low vitamin B12 level Obesity (BMI 30-39.9) Morbid obesity Elevated fasting glucose Chest discomfort COPD (chronic obstructive pulmonary disease) KELSY on CPAP Torn rotator cuff Diabetes High cholesterol Hypertension Surgical History Stented coronary artery History of carpal tunnel surgery Family History Family History Other Mental health disorder Substance abuse Social History Social History Housing: House Patient Tobacco Use Status: Former Tobacco user Smoked in Last 30 Days: No e-Cigarette/Vaping Use: Never Used Second Hand Smoke Exposure: No Use of substances other than those prescribed or required for medical reasons: No Advance Directives: No Advance Directives Information Provided: Yes Do you have a plan to hurt others: No Plan service: No Current occupational status: unemployed Current occupational exposures/hazards: No Cognitive needs: No Hearing needs: No Vision needs: Yes Physical Exam ED Vital Signs: Vital Signs - 24 hr 07/13/24 07:08 07/13/24 07:32 07/13/24 09:20 Temperature 97.9 F 97.9 F Pulse Rate 99 99 Respiratory Rate 18 18 18 Blood Pressure 145/92 H 145/92 H Pulse Oximetry 96 96 Oxygen Delivery Method Room Air Room Air 07/13/24 09:40 Temperature 97.8 F Pulse Rate 88 Respiratory Rate 13 Blood Pressure 132/77 Pulse Oximetry 96 Oxygen Delivery Method Room Air BMI result Body Mass Index 40.7 Const General: cooperative, no acute distress, alert and awake Nutritional Appearance: well nourished Orientation/consciousness: patient oriented x3 Limitations: no limitations HENMT Head: Yes normal to inspection and Yes atraumatic Ears: hearing grossly normal bilaterally and external ears normal General nose exam: Normal external nose present, no nasal discharge noted and no epistaxis Face and sinus: Yes normal facial exam, No abrasion and No laceration Mouth: Normal oral and palatal mucosa present, no drooling and no muffled voice Eyes General: appearance normal, both eyes and all related structures Periorbital: periorbital findings normal Eyelids: Yes eyelids normal Conjunctivae: conjunctivae normal Pupils: Equal, round and reactive pupils present EOM: EOMs intact bilaterally Neck Neck: Yes normal visual inspection, Yes full ROM and Yes no lymphadenopathy Chest Chest palpation & inspection: normal inspection of the chest Resp Effort & Inspection: normal respiratory effort and able to speak in complete sentences GI Inspection: Yes normal to inspection Palpation (GI): Soft to palpation, not firm, nontender and no guarding Neuro General: patient oriented x3 and moves all extremities Cranial nerves: Yes Equal, round and reactive pupils present Cognition (Neuro): normal cognition Extrem General: Yes normal to inspection, Yes full ROM and Yes capillary refill normal Psych Appearance: grossly normal Mental Status: mental status grossly normal Affect: normal affect Attitude: cooperative Thought process: Normal thought process present Thought content: Normal thought content present Insight: Good insight present (Psych) Medications Administered Discontinued Medications Generic Name Dose Route Start Last Admin Trade Name Ramezq PRN Reason Stop Dose Admin Hydromorphone HCl 1 mg 07/13/24 09:06 07/13/24 09:20 Hydromorphone Hcl 1 Mg/Ml Syringe IVPUSH 07/13/24 09:07 1 mg ONCE ONE Administration Protocol Sodium Chloride 1,000 mls @ 999 mls/hr 07/13/24 07:15 07/13/24 07:24 Ns IV 07/13/24 08:15 999 mls/hr .Q1H1M NATALIA Administration Ondansetron HCl 4 mg 07/13/24 09:06 07/13/24 09:20 Ondansetron Hcl 4 Mg/2 Ml Vial IVPUSH 07/13/24 09:07 4 mg ONCE ONE Administration Tamsulosin HCl 0.4 mg 07/13/24 07:05 07/13/24 07:30 Tamsulosin Hcl 0.4 Mg Capsule PO 07/13/24 07:06 0.4 mg ONCE ONE Administration Medical Decision Making Medical Decision Making [facility] Narrative: Patient is a 49 year old assigned male at with a history of CPS, COPD, OA, Eczema, GERD, Migraines, DM, HLD, and HTN presenting to the emergency department today with right sided flank pain. Patient's physical exam was unremarkable. Patient's blood work was unremarkable. Patient's urine showed no acute process. Patient's CT abd/pelvis showed mild right hydroureternephorsis at the level of a punctate calculus at the right UVJ. I explained my physical exam findings as well as all test results to the patient. I answered all questions asked by the patient. Patient received IM Toradol by EMS, IV Dilaudid, and IV fluids which, upon re-evaluation, he stated it helped his symptoms significantly. I stressed the importance of the patient taking his medication as directed (either prescribed or as the over the counter packaging recommends). I stressed the importance of the patient following up with his primary care provider and a urologist. I stressed the importance of the patient returning to the emergency department immediately if his symptoms were to worsen or if he were to develop any dizziness, shortness of breath, difficulty breathing, chest pain, blurry vision, loss of vision, nausea, vomiting, abdominal pain, fever, chills, back pain, or any other complaints. Patient verbalized agreement and understanding with this treatment plan and discharge. Differential Diagnosis Differential Diagnoses: The differential diagnosis associated with the presentation includes Kidney stone Obstructing stone Flank pain UTI Admission/Observation Consideration of admission/observation: Escalation of care including admission/observation considered Patient would have been admitted to the hospital had his work up had any findings where hospital admission was appropriate and his clinical presentation warranted hospital admission. Lab Data [facility] Lab Attestation statement: I reviewed the patient's lab results. My interpretation of these results are in the MDM Rationale portion of this note. 07/13/24 07:19 07/13/24 07:19 Labs: Lab Results 07/13/24 07/13/24 Range/Units 07:19 09:25 WBC 8.3 (4.8-10.8) X10*3/uL RBC 5.15 (4.60-5.80) X10*6/uL Hgb 15.1 (14.0-18.0) g/dl Hct 44.3 (42.0-52.0) % MCV 86.0 (80.0-98.0) fL MCH 29.3 (27.0-33.0) pg MCHC 34.1 (31.0-36.0) g/dl RDW 13.2 (11.0-16.0) % Plt Count 182 (160-400) X10*3/uL MPV 10.0 (9.4-12.4) fL Immature Gran % (Auto) 0.5 H (0.0-0.4) % Neut % (Auto) 75.4 H (45-73) % Lymph % (Auto) 16.2 L (20-40) % [place] % (Auto) 6.2 (2-11) % Eos % (Auto) 1.1 (0-4) % Baso % (Auto) 0.6 (0-2) % Lymph # (Auto) 1.3 (1.2-4.9) X10*3/uL [place] # (Auto) 0.5 (0.1-1.2) X10*3/uL Eos # (Auto) 0.1 (0.0-0.4) X10*3/uL Baso # (Auto) 0.1 (0.0-0.2) X10*3/uL Abs Immat Gran (auto) 0.04 H (0.00-0.03) X10*3/uL Absolute Neuts (auto) 6.3 (2.0-8.3) x10*3/uL Absolute Nucleated RBC 0.000 (0.0-0.012) X10*3/uL Nucleated RBC % (auto) 0.0 (0.0-0.2) /100WBC PT 12.1 (10.9-12.4) SEC INR 1.0 (0.9-1.1) APTT 30.9 (26.0-36.8) SEC Sodium 139 (135-145) mmol/L Potassium 4.4 (3.3-5.1) mmol/L Chloride 108 (96-108) mmol/L Carbon Dioxide 26 (22-29) mmol/L Anion Gap 9 L (12-20) BUN 23 H (9-16) mg/dL Creatinine 1.69 H (0.5-1.4) mg/dL Estim Creat Clear Calc 76.3 Estimated GFR 44 Random Glucose 173 H (60-115) mg/dL Calcium 9.6 (8.4-10.2) mg/dL Magnesium 2.1 (1.6-2.6) mg/dL Total Bilirubin 0.4 (0.0-1.0) mg/dL AST 32 (5-37) U/L ALT 29 (0-40) U/L Alkaline Phosphatase 70 (39-117) U/L Troponin I High Sens < 2.7 (<3.5-35.0) ng/L Total Protein 7.7 (6.5-8.0) g/dL Albumin 4.4 (3.5-5.0) g/dL Urine Color Yellow Urine Appearance Cloudy Urine pH 7.5 (5.0-9.0) Ur Specific [place] 1.015 (1.005-1.025) Urine Protein 30 (1+) H (Neg-Trace) mg/dL Urine Glucose (UA) Negative (Negative) mg/dL Urine Ketones Negative (Negative) mg/dL Urine Blood Trace H (Negative) Urine Nitrite Negative (Negative) Ur Leukocyte Esterase Negative (Negative) Urine RBC 3-5 H (0-2) /HPF Urine WBC 0-5 (0-5) /HPF Ur Squamous Epith Cells 0-2 (0-2) /HPF Urine Bacteria None Seen (None Seen) Hyaline Casts 0-2 (0-2) /LPF Urine Yeast Present Influenza Type A (PCR) NEGATIVE (Negative) Influenza Type B (PCR) NEGATIVE (Negative) RSV RNA Qual (PCR) NEGATIVE (Negative) SARS-CoV-2 RNA (RT-PCR) NEGATIVE (Negative) Independent Interpretation I performed an independent interpretation of an: CT Scan Interpretation: My interpretation is in agreement with the radiologist's impression of this imaging study. L EXAMINATION: CT ABDOMEN AND PELVIS WITHOUT CONTRAST CLINICAL INFORMATION: Right flank calculi COMPARISON: None available. TECHNIQUE: Multidetector volumetric imaging was performed of the abdomen and pelvis without contrast. No oral contrast material.. Sagittal and coronal reformatted images were obtained on the technologist's workstation. This CT examination was performed using dose optimization techniques as appropriate, variously including the following: *Automated exposure control *Adjustment of mA and/or kV according to patient size (this includes techniques or standardized protocols for targeted exams where dose is matched to indication/reason for exam; i.e. extremities or head) *Use of iterative reconstruction technique DLP: 984 mGy-cm FINDINGS: KIDNEYS, URETERS AND BLADDER: Mild right hydroureteronephrosis is evident to the level of a punctate faint radiodensity at the right ureterovesical junction. Mild right perirenal infiltration and stranding is noted. There is an additional nonobstructing 3 mm calculus in the interpolar region of the right kidney. No left renal or ureteral calculi are detected. LUNG BASES: Limited lower thoracic images show bibasilar reticulonodular opacities. LIVER, GALLBLADDER, AND BILIARY TREE: The liver is slightly small, and the caudate lobe is prominent.. No focal hepatic lesion or biliary ductal dilatation is evident. The gallbladder is unremarkable. PANCREAS: Unremarkable SPLEEN: Unremarkable ADRENAL GLANDS: Unremarkable GASTROINTESTINAL TRACT: The small and large bowel are unremarkable. The appendix is unremarkable. ABDOMINAL WALL: A subumbilical mesh graft is noted from prior hernia repair. No recurrent hernia is evident. LYMPH NODES: Normal VASCULAR: Unremarkable PELVIC VISCERA: Unremarkable OSSEOUS STRUCTURES: No suspicious bone lesions. Degenerative disc disease and prominent calcified disc osteophyte ridge at L5-S1 contribute to moderate central canal and by foraminal stenosis. CT/CT abdomen pelvis wo IV con IMPRESSION: 1. Mild right hydroureteronephrosis to the level of a punctate calculus at the right ureterovesical junction. 2. Additional nonobstructing 3 mm right renal calculus. 3. Slightly small liver with prominent caudate lobe, perhaps a reflection of hepatic cirrhosis. 4. Degenerative disc disease and calcified disc osteophyte ridge at L5-S1 with moderate central canal and bilateral foraminal stenosis. Fleischner guidelines were followed. Electronically signed by: Alvaro Sanchez MD 07/13/2024 08:29 AM EST Dictated By: Alvaro Sanchez MD Signed By: Electronically signed by Alvaro Sanchez MD 07/13/24 0828 Radiology Impression Discussion of test interpretation with radiology: I have reviewed the radiologist's reading. Independent Historian Clinical information obtained from an independent historian. History obtained from or confirmed by: EMS (EMS provided additional history and confirmed the history provided by the patient.) Chronic Conditions Patient?s care impacted by: Diabetes and Hypertension Critical Care Time Critical Care Time Critical Care Time: Yes Total Critical Care Time: 34 Attestation: I spent 34 minutes of Critical Care Time with this patient. This does not include time spent on separately reported billable procedures. Discharge Plan Discharge Clinical Impression: Kidney stone Patient Disposition: Home, Self-Care Instructions: Kidney Stones (ED) Additional Instructions: Follow up with your primary care provider and a urologist. Return to the emergency department immediately if your symptoms worsen or if you develop any dizziness, shortness of breath, difficulty breathing, chest pain, blurry vision, loss of vision, nausea, vomiting, abdominal pain, fever, chills, back pain, or any other complaints. Prescriptions: New prednisone 20 mg tablet 20 mg PO DAILY 7 Days Qty: 7 0RF tamsulosin 0.4 mg capsule 0.4 mg PO DAILY Qty: 7 0RF No Action triamcinolone acetonide 0.1 % cream 1 appl topical DAILY 30 Days Qty: 80 1RF bupropion HCl 150 mg tablet extended release 24 hr 150 mg PO QAM 90 Days Qty: 90 2RF bupropion HCl 300 mg tablet extended release 24 hr 300 mg PO DAILY 90 Days Qty: 90 2RF aripiprazole 5 mg tablet 5 mg PO DAILY 90 Days Qty: 90 2RF omeprazole 20 mg capsule,delayed release(DR/EC) 20 mg PO BID 90 Days Qty: 180 3RF tamsulosin 0.4 mg capsule 0.4 mg PO DAILY 90 Days Qty: 90 2RF duloxetine 30 mg capsule,delayed release(DR/EC) 30 mg PO DAILY 90 Days Qty: 90 2RF aspirin [Adult Low Dose Aspirin] 81 mg tablet,delayed release (DR/EC) 81 mg PO DAILY 90 Days Qty: 90 2RF Anoro Ellipta 62.5-25 mcg/actuation blister with device 1 inh inhalation Q24H 30 Days Qty: 60 2RF amlodipine 10 mg tablet 10 mg PO DAILY 90 Days Qty: 90 0RF isosorbide mononitrate 30 mg tablet extended release 24 hr 30 mg PO DAILY 90 Days Qty: 90 3RF cholecalciferol (vitamin D3) 25 mcg (1,000 unit) capsule 25 mcg PO DAILY 90 Days Qty: 90 0RF metformin 500 mg tablet 500 mg PO BID 90 Days Qty: 180 0RF pramipexole 0.5 mg tablet 0.5 mg PO BEDTIME 30 Days Qty: 30 0RF gabapentin 300 mg capsule 300 mg PO TID 30 Days Qty: 90 0RF loratadine 10 mg tablet 10 mg PO DAILY 90 Days Qty: 90 0RF indomethacin 25 mg capsule 25 mg PO BID 30 Days Qty: 60 0RF Rx Instructions: administer with food or milk cyanocobalamin (vitamin B-12) 1,000 mcg tablet 1,000 mcg PO DAILY 90 Days Qty: 90 0RF carvedilol 25 mg tablet 25 mg PO Q12H 90 Days Qty: 180 0RF Rx Instructions: must administer with a meal/food escitalopram oxalate 5 mg tablet 5 mg PO DAILY amitriptyline 25 mg tablet 50 mg PO BEDTIME topiramate 100 mg tablet 300 mg PO DAILY Rx Instructions: Take 1 tab in the morning and 2 at bedtime. hydroxyzine HCl 25 mg tablet 25 mg PO TID rosuvastatin 40 mg tablet 40 mg PO DAILY 90 Days Qty: 90 3RF Combivent Respimat 20-100 mcg/actuation mist 1 puff inhalation Q6H PRN clotrimazole 1 % cream 1 appl topical BID 14 Days Qty: 45 1RF Referrals: [facility] [Provider Group] (Call to establish and follow up with a urologist.) Leland Trujillo MD [Primary Care Provider] - Stand Alone Forms: Work/School Release Print Language: Ethiopian
[2024-07-13 07:08] VITALS: BP 145/92; BP 160/90; PULSE 90; PULSE 99; RESP 18; TEMP 36.6; O2SAT 96; O2SAT 98; BMI 40.7
[2024-07-13] MEDS: 0.9 % Sodium Chloride 1,000 ML 999 ML IV (07:24)
[2024-07-13 07:25] LABS: MANUAL DIFF FLAG NO
[2024-07-13 07:26] LABS: Basophils Absolute Auto 0.1 X10*3/uL (0.0-0.2); Basophils Percent Auto 0.6 % (0-2); Eosinophils Absolute Auto 0.1 X10*3/uL (0.0-0.4); Eosinophils Percent Auto 1.1 % (0-4); Hematocrit 44.3 % (42.0-52.0); Hemoglobin 15.1 g/dl (14.0-18.0); Imm Gran Abs Auto 0.04 X10*3/uL (0.00-0.03); Imm Gran Pct Auto 0.5 % (0.0-0.4); Lymphocytes Absolute Auto 1.3 X10*3/uL (1.2-4.9); Lymphocytes Percent Auto 16.2 % (20-40); Mean Corpuscular HGB Conc 34.1 g/dl (31.0-36.0); Mean Corpuscular Hemoglobin 29.3 pg (27.0-33.0); Monocytes Absolute Auto 0.5 X10*3/uL (0.1-1.2); Monocytes Percent Auto 6.2 % (2-11); Neutrophils Absolute Auto 6.3 x10*3/uL (2.0-8.3); Neutrophils Percent Auto 75.4 % (45-73); Platelet Count 182 X10*3/uL (160-400); Red Blood Count 5.15 X10*6/uL (4.60-5.80); Red Cell Distribution Width 13.2 % (11.0-16.0); White Blood Count 8.3 X10*3/uL (4.8-10.8)
[2024-07-13] MEDS: Tamsulosin HCL 0.4 MG CAPSULE PO (07:30)
--- OUTSIDE RECORDS SUMMARY | 2024-07-13 07:31 | XMS_ITS | Data Portability ---
Author Organization [place] - [facility], [facility] Address [address] [place] [id number] Assessment No assessment recorded. Plan of Treatment Reminders Order Date Submit Date Provider Last Modified By Organization Details Last Modified Time Details Appointments None recorded. Lab None recorded. 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 2023 024 [email or web address] 2 [facility], [address], [place], [address], 4 12:21:10 Procedures None recorded. Surgeries None [...] and Address Organization Details Recorded Time Dysphagia 94994409 Active 024 BERNARDA Tellez MD 100 [facility],[address], [phone] [facility] - 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 100, [place], [phone], [facility] 09:13:57 Problem Notes None recorded. Procedures Surgical History Date Name Laterality Status Provider Name and Address Organization Details Recorded Time 01/20/2024 FFL_RE completed BERNARDA BELL MD 100 [facility], [place], [phone], [facility] 01/20/2024 09:14:05 Imaging Results Imaging Date Name Status LastModified by Organiz ation Details LastModified Time 10/01/2023 MRI, brain, w/o contrast [email or web address] Information not available 01/22/2024 09:27:19 Procedure [...] Updated DateTime 01/20/2024 182.88 cm 35.3 kg/m2 299868.02 g Kat Major [place] - [facility] 01/20/2024 09:04:31 Social History None recorded. Functional Status None recorded. Mental Status None recorded. Family History Nothing Reported. Medical History No medical history recorded. Past Encounters Encounter ID Performer Location Encounter Start Date Encounter Closed Date Diagnosis/Indication Diagnosis SNOMED-CT Code Diagnosis ICD10 Code [id number] BERNARDA BELL MD [facility] [address] [phone] 01/20/2024 08:46:56 01/20/2024 09:20:43 Dysphagia 14589835 R13.10 Benign douglas or of soft tissue of head, face and neck 917347918 D21.0 Health Concerns Section Related Observation LastModified by Organization Detai ls LastModified Time None Recorded Concern Status LastModified by Organization Details LastModified Time None Recorded Advance Directives Directive None Recorded Payers Encounter Date Sequence Insurance Name Policy Number Policy Rutledge Covered Member ID Rutledge Member ID Guarantor Name 01/20/2024 1 [facility] NET PLAN (MEDICAID HMO) Mina Lopes [id number] Mina Lopes Notes Date Note Type Note [...] smoking 3 years ago. BERNARDA BELL MD [address] [place] [address], [place], [phone], [facility] - [facility] 01/20/2024 09:23:32
[2024-07-13 07:32] VITALS: BP 145/92; PULSE 99; RESP 18; TEMP 36.6; O2SAT 96
[2024-07-13 07:32] LABS: Prothrombin Time 12.1 SEC (10.9-12.4)
[2024-07-13 07:34] LABS: Partial Thromboplastin Time 30.9 SEC (26.0-36.8)
--- NOTE | 2024-07-13 07:35 | PC.NURSE ---
Pt comes to ED today via EMS for c/o R flank pain stating at 3am today. Pt reports initial pain was 10/10 but after IM Toradol on EMS pain is 7/10. Pt reports a (+) Hx kidney stones however this instances is more painful than previous. A&Ox3, VSS, afebrile. Skin is warm and dry Breaths and speech are even and unlabored. Facial symmetry noted. 20g to LAC and Pt medicated per SEP. Blood lab results pending and Pt is awaiting CT scan.
[2024-07-13 07:40] LABS: Alanine Aminotransferase 29 U/L (0-40); Albumin Level 4.4 g/dL (3.5-5.0); Alkaline Phosphatase 70 U/L (39-117); Anion Gap 9 (12-20); Aspartate Amino Transferase 32 U/L (5-37); Bilirubin Total 0.4 mg/dL (0.0-1.0); Blood Urea Nitrogen 23 mg/dL (9-16); Calcium 9.6 mg/dL (8.4-10.2); Carbon Dioxide 26 mmol/L (22-29); Chloride 108 mmol/L (96-108); Creatinine Clr Calc Pharmacy 76.3; Estimated Glomerular Filt Rate 44; Glucose Random 173 mg/dL (60-115); Magnesium 2.1 mg/dL (1.6-2.6); Potassium 4.4 mmol/L (3.3-5.1); Sodium 139 mmol/L (135-145); Total Protein 7.7 g/dL (6.5-8.0)
[2024-07-13 07:49] LABS: Troponin-I High Sensitivity < 2.7 ng/L (<3.5-35.0)
[2024-07-13 09:20] VITALS: RESP 18
[2024-07-13] MEDS: ondansetron HCL 4 MG/2 ML VIAL IVPUSH (09:20)
[2024-07-13] MEDS: HYDROmorphone HCl 1 MG/ML SYRINGE IVPUSH (09:20)
[2024-07-13 09:36] LABS: Appearance Urine Cloudy; Color Urine Yellow; Glucose Urine UA Negative (Negative); Leukocyte Esterase Urine Negative (Negative); Nitrite Urine Negative (Negative); PH 7.5 (5.0-9.0); Specific Gravity - Urine 1.015 (1.005-1.025); UMIC TRIGGER UACC YES; Urine Blood Trace (Negative); Urine Ketones Negative (Negative)
[2024-07-13 09:40] VITALS: BP 132/77; PULSE 88; RESP 13; TEMP 36.6; O2SAT 96
[2024-07-13 09:40] LABS: Influenza A PCR NEGATIVE (Negative); Influenza B PCR NEGATIVE (Negative); Resp Syncy Virus RNA Qual PCR NEGATIVE (Negative); SARS COV2 PCR INHOUSE NEGATIVE (Negative)
[2024-07-13 09:51] LABS: Bacteria Urine None Seen (None Seen); Hyaline Casts Urine 0-2 /LPF (0-2); Squamous Epithelial Cell Urine 0-2 /HPF (0-2); WBC Urine 0-5 /HPF (0-5)
[2024-07-13 09:58] LABS: Urine Protein 30 (1+) mg/dL (Neg-Trace)
[2024-07-13 10:32] VITALS: BP 132/77; PULSE 88; RESP 13; TEMP 36.6; O2SAT 96
== END 2024-07-13 10:32 | disposition home or self-care (01) ==
PROVIDERS: Physician Assistant Medical; Emergency Provider Emergency Medicine; PCP Family Medicine
DX: N20.0 Calculus of kidney (principal); R10.2 Pelvic and perineal pain; R11.2 Nausea with vomiting, unspecified; Z79.899 Other long term (current) drug therapy; Z03.818 Encounter for observation for suspected exposure to other biological agents ruled out
CPT/HCPCS: 0241U; 36415; 74176; 80053; 81001; 83735; 84484; 85025; 85610; 85730; 96361; 96374; 96375; 99284; J1171; J2405

== ENCOUNTER 2024-07-28 10:19 | Outpatient (REF) | payer OTHER, SELFPAY ==
--- NOTE | ~2024-07-28 | MR_ITS ---
EXAMINATION: MRI ORBIT/FACE WITHOUT AND WITH CONTRAST CLINICAL INFORMATION: Neck mass. COMPARISON: MRI brain without IV contrast. October 01, 2023. TECHNIQUE: MRI of the orbits/face was obtained using routine sequences without and with contrast. Intravenous contrast: Gadavist 10 mL. No reported immediate complications FINDINGS: The submitted for interpretation on August 02, 2024. Limited by patient's motion artifact. There is a well-defined, ovoid shaped, 15 x 12 x 13 mm, thin walled, nonenhancing, nonrestricted diffusion, isointense T1 and hypointense T2 lesion centered in the left pterygopalatine foramen/fossa just inferior to the left foramen rotundum. There is no clear connection with the left middle cranial fossa/extra-axial compartment. There is no extension into the left orbital apex. The flow-void signal within the main vessels is normal. There is no signal abnormality or enhancing lesion in the intraconal or the extraconal compartments of the orbits. The eyeballs are intact and normal. The extraocular muscles demonstrate normal morphology and enhancement pattern. Mucosal thickening, ethmoid air cells and frontal sinus. Retention cysts versus polyps, left maxillary sinus. Sellar/suprasellar region demonstrated no gross masses or signal abnormality. 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 Differential considerations include there are moderate cyst versus nerve sheath tumor. Meningocele seems less likely. Electronically signed by: Fadi Sagastume MD 08/02/2024 09:05 AM KARLEY
--- OUTSIDE RECORDS SUMMARY | 2024-07-28 10:36 | XMS_ITS | Data Portability ---
Author Organization [place] - [facility], Allergy Address [address] [place] [id number] Assessment No assessment recorded. Plan of Treatment Reminders Order Date Submit Date Provider Last Modified By Organization Details Last Modified Time Details Appointments None recorded. Lab None recorded. 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 2023 024 [email or web address] 2 [facility], [address], [place], [address], 4 12:21:10 Procedures None recorded. Surgeries None [...] and Address Organization Details Recorded Time Dysphagia [id number] Active 024 BERNARDA Tellez MD 100 [facility],[address], 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 Procedures Surgical History Date Name Laterality Status Provider Name and Address Organization Details Recorded Time 01/20/2024 FFL_RE completed BERNARDA BELL MD 100 [facility] 100, [place], [address], [facility] 01/20/2024 09:14:05 Imaging Results Imaging Date Name Status LastModified by Organiz ation Details LastModified Time 10/01/2023 MRI, brain, w/o contrast [facility] Information not available 01/22/2024 09:27:19 Procedure [...] Updated DateTime 01/20/2024 182.88 cm 35.3 kg/m2 183999.02 g Kat Major [place] - [facility] 01/20/2024 09:04:31 Social History None recorded. Functional Status None recorded. Mental Status None recorded. Family History Nothing Reported. Medical History No medical history recorded. Past Encounters Encounter ID Performer Location Encounter Start Date Encounter Closed Date Diagnosis/Indication Diagnosis SNOMED-CT Code Diagnosis ICD10 Code [id number] BERNARDA BELL MD [facility] [address] [phone] 01/20/2024 08:46:56 01/20/2024 09:20:43 Dysphagia 39140727 R13.10 Benign douglas or of soft tissue of head, face and neck 157297042 D21.0 Health Concerns Section Related Observation LastModified by Organization Detai ls LastModified Time None Recorded Concern Status LastModified by Organization Details LastModified Time None Recorded Advance Directives Directive None Recorded Payers Encounter Date Sequence Insurance Name Policy Number Policy Rutledge Covered Member ID Rutledge Member ID Guarantor Name 01/20/2024 1 [facility] PL[facility] (MEDICAID HMO) Mina Lopes [id number] Mina Lopes Notes Date Note Type Note [...] smoking 3 years ago. BERNARDA BELL MD [address] [place] [address], [place], [address], [facility] - [facility] 01/20/2024 09:23:32
[2024-07-28] MEDS: gadobutroL 10 ML VIAL IVPUSH (11:23)
== END 2024-07-28 10:20 | disposition home or self-care (01) ==
LOC: HO.MRI 10:19
PROVIDERS: PCP Family Medicine; Visit Provider Otolaryngology
DX: R22.1 Localized swelling, mass and lump, neck (principal)
CPT/HCPCS: 70543; A9585

== ENCOUNTER → 2024-07-28 10:30 | Outpatient (BNV) | payer OTHER, SELFPAY | PROVIDERS: PCP Family Medicine; Visit Provider Radiology Diagnostic Radiology | DX: R22.1 Localized swelling, mass and lump, neck (principal) | CPT/HCPCS: 70543 ==

== ENCOUNTER 2024-08-10 18:44 | Emergency (ER) | payer OTHER, SELFPAY ==
--- NOTE | ~2024-08-10 | XR_ITS ---
CLINICAL HISTORY: fall Radiographs of the chest and left ribs Comparison: 05/12/22 Findings: No definitive rib fracture or other acute osseous abnormality. Artifact versus lucency indicating fracture at the 6th and 7th ribs on the LLO view adjacent to the skin marker. Normal heart size. Normal mediastinal contours. No pneumothorax. No opacity. No pleural effusion. Normal upper abdomen. Impression: No definitive rib fracture. Artifact versus nondisplaced fracture of the 6th and 7th ribs. This document has been electronically signed by: Love Benton MD on 08/10/2024 21:00:23
[2024-08-10 18:49] VITALS: BP 168/112; PULSE 102; O2SAT 96
[2024-08-10 19:12] VITALS: BP 149/95; PULSE 108; RESP 20; TEMP 36.6; O2SAT 96; BMI 40.2
--- NOTE | 2024-08-10 19:12 | ECG_ITS ---
Test Reason : cp Blood Pressure : */* mmHG Vent. Rate : 90 BPM Atrial Rate : 90 BPM P-R Int : 206 ms QRS Dur : 92 ms QT Int : 358 ms P-R-T Axes : 19 90 30 degrees QTcB Int : 437 ms Normal sinus rhythm Rightward axis Borderline ECG No previous ECGs available Referred By: Roger Sheehan Electronically Signed By: Ho Saucedo
--- NOTE | 2024-08-10 19:12 | ED.GENADULT ---
HPI - General Adult General Chief complaint: Chest Pain Stated complaint: L Rib pain Time Seen by Provider: 08/11/24 00:40 Source: patient Mode of arrival: ambulatory Limitations: no limitations History of Present Illness ED Provider: Dr. Meg Moss HPI narrative: Patient comes to the emergency room complaining of left-sided rib pain. Patient states that 3 days ago, patient accidentally slipped on a ramp landed on the left side of his body. Patient states that since then, he has had rib pain. Patient denies hitting his head or losing consciousness. Related Data Home Medications ?Medication ?Instructions ?Recorded ?Confirmed amitriptyline 25 mg tablet 50 mg PO BEDTIME 01/01/23 07/06/24 escitalopram oxalate 5 mg tablet 5 mg PO DAILY 07/08/23 07/06/24 hydroxyzine HCl 25 mg tablet 25 mg PO TID 10/07/23 07/06/24 topiramate 100 mg tablet 300 mg PO DAILY 10/07/23 07/06/24 ipratropium 20 mcg-albuterol 100 1 puff inhalation Q6H PRN 10/27/23 07/06/24 mcg/actuation mist for inhalation (Combivent Respimat) Previous Rx's ?Medication ?Instructions ?Recorded triamcinolone acetonide 0.1 % 1 appl topical DAILY 30 days #80 04/21/22 topical cream grams bupropion HCl 150 mg 24 hr tablet, 150 mg PO QAM 90 days #90 tabs 05/06/22 extended release aripiprazole 5 mg tablet 5 mg PO DAILY 90 days #90 tabs 05/11/22 bupropion HCl 300 mg 24 hr tablet, 300 mg PO DAILY 90 days #90 tabs 05/11/22 extended release omeprazole 20 mg capsule,delayed 20 mg PO BID 90 days #180 caps 07/23/23 release tamsulosin 0.4 mg capsule 0.4 mg PO DAILY 90 days #90 caps 09/23/23 rosuvastatin 40 mg tablet 40 mg PO DAILY 90 days #90 tabs 10/07/23 aspirin 81 mg tablet,delayed 81 mg PO DAILY 90 days #90 tabs 10/21/23 release (Adult Low Dose Aspirin) umeclidinium 62.5 mcg-vilanterol 1 inh inhalation Q24H 30 days #60 12/22/23 25 mcg/actuation powdr for ea inhalation (Anoro Ellipta) isosorbide mononitrate 30 mg 30 mg PO DAILY 90 days #90 tabs 04/25/24 tablet,extended release 24 hr cholecalciferol (vitamin D3) 25 25 mcg PO DAILY 90 days #90 caps 05/31/24 mcg (1,000 unit) capsule metformin 500 mg tablet 500 mg PO BID 90 days #180 tabs 06/01/24 loratadine 10 mg tablet 10 mg PO DAILY 90 days #90 tabs 06/30/24 clotrimazole 1 % topical cream 1 appl topical BID 2 weeks #45 07/06/24 grams carvedilol 25 mg tablet 25 mg PO Q12H 90 days #180 tabs 07/08/24 cyanocobalamin (vitamin B-12) 1,000 mcg PO DAILY 90 days #90 tabs 07/08/24 1,000 mcg tablet prednisone 20 mg tablet 20 mg PO DAILY 7 days #7 tabs 07/13/24 tamsulosin 0.4 mg capsule 0.4 mg PO DAILY #7 caps 07/13/24 amlodipine 10 mg tablet 10 mg PO DAILY 90 days #90 tabs 07/14/24 gabapentin 300 mg capsule 300 mg PO TID 30 days #90 caps 07/15/24 pramipexole 0.5 mg tablet 0.5 mg PO BEDTIME 30 days #30 tabs 07/15/24 duloxetine 30 mg capsule,delayed 30 mg PO DAILY 90 days #90 caps 08/04/24 release indomethacin 25 mg capsule 25 mg PO BID 30 days #60 caps 08/04/24 ibuprofen 800 mg tablet 800 mg PO Q8H PRN pain #30 tabs 08/11/24 oxycodone 5 mg tablet 5 mg PO BID PRN pain #7 tabs 08/11/24 Allergies Allergy/AdvReac Type Severity Reaction Status Date / Time erythromycin base Allergy Mild Confusion Verified 08/10/24 19:14 clonidine AdvReac Severe Vomiting Verified 08/10/24 19:14 Review of Systems Review of Systems: Constitutional : No Weight loss, No Fever, No Chills, No Night Sweats, No Fatigue, No Malaise ENT/Mouth : No Hearing loss, No Ear Pain, No Nasal Congestion, No Sinus Pain, No Hoarseness, No sore throat, No Rhinorrhea, No Swallowing Difficulty Eyes: No Eye Pain, No Swelling, No Redness, No Foreign Body, No Discharge, No Vision Changes Cardiovascular : No Chest Pain, No SOB, No Dyspnea on Exertion, No Orthopnea, No Edema, No Palpitations Respiratory : No Cough, No Sputum, No Wheezing, No Smoke Exposure, No Dyspnea Gastrointestinal : No Nausea, No Vomiting, No Diarrhea, No Constipation, No abdominal Pain, No Hematochezia, No Melena. Genitourinary : no irregular bleeding, No Dysuria, No Urinary Frequency, No Hematuria, No Urinary Incontinence, No Urgency, No Flank Pain, No Urinary Flow Changes, No Hesitancy Musculoskeletal : Complaining of left-sided rib pain Skin : No Skin Lesions, No rash Neuro : No Weakness, No Numbness, No Paresthesias, No Loss of Consciousness, No Dizziness, No Headache Psych : No Anxiety/Panic, No Depression, No SI/HI/AH/VH, No Social Issues, Heme/Lymph: No Bruising, No Bleeding,No Lymphadenopathy Endocrine : No Polyuria, No Polydipsia, No Temperature Intolerance PMFSH Past Medical History Medical History Adult general medical exam Laboratory exam ordered as part of routine general medical examination Imbalance Left-sided chest wall pain Dizziness Fatigue Unsteady gait Yeast infection of the skin Cough Abnormal lung sounds Abnormal CT lung screening Headache Puncture wound of scalp Left knee pain Sacroiliitis Osteoarthritis of knee Infection of skin Exposure to potential infection Urinary hesitancy Screening for prostate cancer Screening for colon cancer Difficulty swallowing Decreased visual acuity Low vitamin B12 level Obesity (BMI 30-39.9) Morbid obesity Elevated fasting glucose Chest discomfort COPD (chronic obstructive pulmonary disease) KELSY on CPAP Torn rotator cuff Diabetes High cholesterol Hypertension Surgical History Stented coronary artery History of carpal tunnel surgery Family History Family History Other Mental health disorder Substance abuse Social History Social History Housing: House Patient Tobacco Use Status: Former Tobacco user e-Cigarette/Vaping Use: Never Used Second Hand Smoke Exposure: No Advance Directives: No Advance Directives Information Provided: No service: No Current occupational status: unemployed Current occupational exposures/hazards: No Cognitive needs: No Hearing needs: No Vision needs: Yes Physical Exam ED Vital Signs: Vital Signs - 24 hr 08/10/24 19:12 08/10/24 21:52 08/11/24 00:35 Temperature 97.8 F 97.8 F 98.0 F Pulse Rate 108 H 93 91 Respiratory Rate 20 20 20 Blood Pressure 149/95 H 145/96 H 138/86 Pulse Oximetry 96 97 95 Oxygen Delivery Method Room Air Room Air Room Air BMI result Body Mass Index 40.2 Const Other: Appearance: Alert. Oriented X3. No acute distress. Eyes: Pupils equal, round and reactive to light. ENT: Pharynx normal. Neck: Normal inspection. Neck supple. No lymph nodes noted. No crepitus CVS: Normal heart rate and rhythm. Pulses normal. Normal S1 and S2 Respiratory: No respiratory distress. Breath sounds normal. No Wheezing. No rales Abdomen: Soft and nontender. No rigidity. No distention. Skin: Skin warm and dry. Normal skin color. Normal skin turgor. Musculoskeletal: Pain to palpation over the lateral ribs the front and the side and posterior aspect Extremities: No lower extremity edema. No Lacerations. No Rash Neuro: Oriented X 3. No motor deficit. No sensory deficit. Moving all extremities. No slurred speech. CN 2 through 12 grossly intact Psych: calm, cooperative, normal affect Course Course Course Narrative: RME, this is a rapid medical exam performed by Patricio Sheehan please refer to primary provider for complete H&P- 49-year-old male presents for evaluation of left-sided chest pain. He reports falling 3 days ago into a railing and struck the left side of his chest. His pain is worsening and now radiating towards the center of his chest. His pain is worse with deep inspiration. Plan for labs, EKG, x-ray of ribs with PA chest Medical Decision Making Medical Decision Making [facility] Narrative: My interpretation of patient's labs, no significant abnormality in patient's hematology and chemistry., negative troponin X-ray shows possible fracture. Given patient's location of symptoms, it is likely that patient has a nondisplaced fracture in two continues ribs Patient was given p.o. oxycodone. Patient showed O2 cough hugging a pillow to decrease the pain. Lab Data [facility] Lab Attestation statement: I reviewed the patient's lab results. 08/10/24 20:37 08/10/24 20:37 Labs: Lab Results 08/10/24 Range/Units 20:37 WBC 6.4 (4.8-10.8) X10*3/uL RBC 4.96 (4.60-5.80) X10*6/uL Hgb 14.3 (14.0-18.0) g/dl Hct 42.8 (42.0-52.0) % MCV 86.3 (80.0-98.0) fL MCH 28.8 (27.0-33.0) pg MCHC 33.4 (31.0-36.0) g/dl RDW 13.7 (11.0-16.0) % Plt Count 181 (160-400) X10*3/uL MPV 9.9 (9.4-12.4) fL Immature Gran % (Auto) 0.5 H (0.0-0.4) % Neut % (Auto) 43.4 L (45-73) % Lymph % (Auto) 42.2 H (20-40) % [place] % (Auto) 10.0 (2-11) % Eos % (Auto) 2.8 (0-4) % Baso % (Auto) 1.1 (0-2) % Lymph # (Auto) 2.7 (1.2-4.9) X10*3/uL [place] # (Auto) 0.6 (0.1-1.2) X10*3/uL Eos # (Auto) 0.2 (0.0-0.4) X10*3/uL Baso # (Auto) 0.1 (0.0-0.2) X10*3/uL Abs Immat Gran (auto) 0.03 (0.00-0.03) X10*3/uL Absolute Neuts (auto) 2.8 (2.0-8.3) x10*3/uL Absolute Nucleated RBC 0.000 (0.0-0.012) X10*3/uL Nucleated RBC % (auto) 0.0 (0.0-0.2) /100WBC Sodium 142 (135-145) mmol/L Potassium 3.9 (3.3-5.1) mmol/L Chloride 115 H (96-108) mmol/L Carbon Dioxide 23 (22-29) mmol/L Anion Gap 8 L (12-20) BUN 17 H (9-16) mg/dL Creatinine 1.17 (0.5-1.4) mg/dL Estim Creat Clear Calc 109.6 Estimated GFR > 60 Random Glucose 135 H (60-115) mg/dL Calcium 9.4 (8.4-10.2) mg/dL Total Bilirubin 0.3 (0.0-1.0) mg/dL AST 27 (5-37) U/L ALT 31 (0-40) U/L Alkaline Phosphatase 83 (39-117) U/L Troponin I High Sens < 2.7 (<3.5-35.0) ng/L Total Protein 7.5 (6.5-8.0) g/dL Albumin 4.2 (3.5-5.0) g/dL Independent Interpretation I performed an independent interpretation of an: Plain X-Ray Radiology Impression Discussion of test interpretation with radiology: I have reviewed the radiologist's reading. Radiologist Impression: No definitive rib fracture or other acute osseous abnormality. Artifact versus lucency indicating fracture at the 6th and 7th ribs on the LLO view adjacent to the skin marker. Normal heart size. Normal mediastinal contours. No pneumothorax. No opacity. No pleural effusion. Normal upper abdomen. Impression: No definitive rib fracture. Artifact versus nondisplaced fracture of the 6th and 7th ribs. Discharge Plan Discharge Clinical Impression: Closed rib fracture Patient Disposition: Home, Self-Care Instructions: Rib Fracture (ED) Additional Instructions: Please follow-up with your primary care physician tomorrow. If you have any worsening or new symptoms, please return to the emergency room or call 911 Prescriptions: New oxycodone 5 mg tablet 5 mg PO BID PRN (Reason: pain) Qty: 7 0RF Rx Instructions: Partial Fill upon patient request. ibuprofen 800 mg tablet 800 mg PO Q8H PRN (Reason: pain) Qty: 30 0RF No Action triamcinolone acetonide 0.1 % cream 1 appl topical DAILY 30 Days Qty: 80 1RF bupropion HCl 150 mg tablet extended release 24 hr 150 mg PO QAM 90 Days Qty: 90 2RF bupropion HCl 300 mg tablet extended release 24 hr 300 mg PO DAILY 90 Days Qty: 90 2RF aripiprazole 5 mg tablet 5 mg PO DAILY 90 Days Qty: 90 2RF omeprazole 20 mg capsule,delayed release(DR/EC) 20 mg PO BID 90 Days Qty: 180 3RF tamsulosin 0.4 mg capsule 0.4 mg PO DAILY 90 Days Qty: 90 2RF aspirin [Adult Low Dose Aspirin] 81 mg tablet,delayed release (DR/EC) 81 mg PO DAILY 90 Days Qty: 90 2RF Anoro Ellipta 62.5-25 mcg/actuation blister with device 1 inh inhalation Q24H 30 Days Qty: 60 2RF isosorbide mononitrate 30 mg tablet extended release 24 hr 30 mg PO DAILY 90 Days Qty: 90 3RF cholecalciferol (vitamin D3) 25 mcg (1,000 unit) capsule 25 mcg PO DAILY 90 Days Qty: 90 0RF metformin 500 mg tablet 500 mg PO BID 90 Days Qty: 180 0RF loratadine 10 mg tablet 10 mg PO DAILY 90 Days Qty: 90 0RF cyanocobalamin (vitamin B-12) 1,000 mcg tablet 1,000 mcg PO DAILY 90 Days Qty: 90 0RF carvedilol 25 mg tablet 25 mg PO Q12H 90 Days Qty: 180 0RF Rx Instructions: must administer with a meal/food amlodipine 10 mg tablet 10 mg PO DAILY 90 Days Qty: 90 0RF gabapentin 300 mg capsule 300 mg PO TID 30 Days Qty: 90 0RF pramipexole 0.5 mg tablet 0.5 mg PO BEDTIME 30 Days Qty: 30 0RF indomethacin 25 mg capsule 25 mg PO BID 30 Days Qty: 60 0RF Rx Instructions: administer with food or milk duloxetine 30 mg capsule,delayed release(DR/EC) 30 mg PO DAILY 90 Days Qty: 90 0RF prednisone 20 mg tablet 20 mg PO DAILY 7 Days Qty: 7 0RF tamsulosin 0.4 mg capsule 0.4 mg PO DAILY Qty: 7 0RF escitalopram oxalate 5 mg tablet 5 mg PO DAILY amitriptyline 25 mg tablet 50 mg PO BEDTIME topiramate 100 mg tablet 300 mg PO DAILY Rx Instructions: Take 1 tab in the morning and 2 at bedtime. hydroxyzine HCl 25 mg tablet 25 mg PO TID rosuvastatin 40 mg tablet 40 mg PO DAILY 90 Days Qty: 90 3RF Combivent Respimat 20-100 mcg/actuation mist 1 puff inhalation Q6H PRN clotrimazole 1 % cream 1 appl topical BID 14 Days Qty: 45 1RF Print Language: Solomon Islander
--- NOTE | 2024-08-10 20:38 | MHC.EDTECH ---
Patient brought into triage area,EKG taken per order,signed by provider,labs drawn and sent to lab.
[2024-08-10 20:43] LABS: MANUAL DIFF FLAG NO
[2024-08-10 20:44] LABS: Basophils Absolute Auto 0.1 X10*3/uL (0.0-0.2); Basophils Percent Auto 1.1 % (0-2); Eosinophils Absolute Auto 0.2 X10*3/uL (0.0-0.4); Eosinophils Percent Auto 2.8 % (0-4); Hematocrit 42.8 % (42.0-52.0); Hemoglobin 14.3 g/dl (14.0-18.0); Imm Gran Abs Auto 0.03 X10*3/uL (0.00-0.03); Imm Gran Pct Auto 0.5 % (0.0-0.4); Lymphocytes Absolute Auto 2.7 X10*3/uL (1.2-4.9); Lymphocytes Percent Auto 42.2 % (20-40); Mean Corpuscular HGB Conc 33.4 g/dl (31.0-36.0); Mean Corpuscular Hemoglobin 28.8 pg (27.0-33.0); Mean Corpuscular Volume 86.3 fL (80.0-98.0); Mean Platelet Volume 9.9 fL (9.4-12.4); Monocytes Absolute Auto 0.6 X10*3/uL (0.1-1.2); Neutrophils Absolute Auto 2.8 x10*3/uL (2.0-8.3); Neutrophils Percent Auto 43.4 % (45-73); Platelet Count 181 X10*3/uL (160-400); Red Blood Count 4.96 X10*6/uL (4.60-5.80); Red Cell Distribution Width 13.7 % (11.0-16.0); White Blood Count 6.4 X10*3/uL (4.8-10.8)
[2024-08-10 20:58] LABS: Alanine Aminotransferase 31 U/L (0-40); Albumin Level 4.2 g/dL (3.5-5.0); Alkaline Phosphatase 83 U/L (39-117); Anion Gap 8 (12-20); Aspartate Amino Transferase 27 U/L (5-37); Bilirubin Total 0.3 mg/dL (0.0-1.0); Blood Urea Nitrogen 17 mg/dL (9-16); Calcium 9.4 mg/dL (8.4-10.2); Carbon Dioxide 23 mmol/L (22-29); Chloride 115 mmol/L (96-108); Creatinine Clr Calc Pharmacy 109.6; Estimated Glomerular Filt Rate > 60; Glucose Random 135 mg/dL (60-115); Potassium 3.9 mmol/L (3.3-5.1); Sodium 142 mmol/L (135-145); Total Protein 7.5 g/dL (6.5-8.0)
[2024-08-10 21:06] LABS: Troponin-I High Sensitivity < 2.7 ng/L (<3.5-35.0)
[2024-08-10 21:52] VITALS: BP 145/96; PULSE 93; RESP 20; TEMP 36.6; O2SAT 97
[2024-08-11 00:35] VITALS: BP 138/86; PULSE 91; RESP 20; TEMP 36.7; O2SAT 95
--- NOTE | 2024-08-11 00:36 | MHC.EDTECH ---
pt brought into emc3 from waiting room. pt changed over and placed on monitoring and evaluation advisor, vitals taken.
[2024-08-11] MEDS: oxyCODONE HCl Immed Release 5 MG TABLET PO (01:51)
[2024-08-11 01:57] VITALS: BP 138/86; PULSE 91; RESP 20; TEMP 36.7; O2SAT 95
== END 2024-08-11 02:16 | disposition home or self-care (01) ==
PROVIDERS: Physician Assistant; Emergency Provider Emergency Medicine; PCP Family Medicine
DX: S22.42XA Multiple fractures of ribs, left side, initial encounter for closed fracture (principal); R07.89 Other chest pain; R07.81 Pleurodynia; W01.0XXA Fall on same level from slipping, tripping and stumbling without subsequent striking against object, initial encounter; Y93.89 Activity, other specified; Y92.89 Other specified places as the place of occurrence of the external cause; Y99.8 Other external cause status; Z79.899 Other long term (current) drug therapy
CPT/HCPCS: 36415; 71101; 80053; 84484; 85025; 93005; 99283; 99284

== ENCOUNTER → 2024-08-10 19:12 | Outpatient (BNV) | payer OTHER, SELFPAY | PROVIDERS: Emergency Provider Emergency Medicine; PCP Family Medicine; Visit Provider Internal Medicine Cardiovascular Disease | DX: R07.9 Chest pain, unspecified (principal); R94.31 Abnormal electrocardiogram [ECG] [EKG] | CPT/HCPCS: 93010 ==

== ENCOUNTER → 2024-08-10 19:12 | Outpatient (BNV) | payer OTHER, SELFPAY | PROVIDERS: PCP Family Medicine; Visit Provider Radiology Diagnostic Radiology | DX: R07.81 Pleurodynia (principal); W19.XXXA Unspecified fall, initial encounter | CPT/HCPCS: 71101 ==

== ENCOUNTER 2024-08-14 14:29 | Emergency (ER) | payer OTHER, SELFPAY ==
--- NOTE | ~2024-08-14 | CT_ITS ---
CLINICAL HISTORY: L flank pain, r.o colic CT abdomen and pelvis without contrast Comparison: CT/CA/SR - CT ABDOMEN PELVIS WO IV CON - 07/13/24 07:57 EST Findings: No consolidation or effusion. A few tiny nodules are present at the lung bases, nonspecific but similar to prior. There is a 1-2 mm calculus at the left ureterovesicular junction, coronal image 67. There is mild left hydroureteronephrosis and mild stranding about the left kidney. No additional left-sided calculi. There is a 2 mm right renal calculus. No obstructive right-sided uropathy. The bladder is partially distended. The liver, spleen, gallbladder, adrenal glands and pancreas are unremarkable. No bowel obstruction or free air. No acute osseous finding. Impression: There is a tiny calculus at the left ureterovesicular junction. Mild left hydroureteronephrosis and stranding about the left kidney. Additional incidental findings. This document has been electronically signed by: Lee Bradley MD on 08/14/2024 16:04:35
[2024-08-14 14:35] VITALS: BP 150/100; PULSE 112; O2SAT 99
[2024-08-14 14:40] VITALS: BP 145/90; PULSE 115; RESP 17; TEMP 36.6; O2SAT 98; BMI 40.7
--- NOTE | 2024-08-14 15:35 | ED_ITS ---
HPI - Male Genitourinary General Chief complaint: Urogenital-Male Stated complaint: FLANK PAIN Time Seen by Provider: 08/14/24 15:14 Source: patient Mode of arrival: ambulatory Limitations: no limitations History of Present Illness ED Provider: Jaquelin Mejia APRN HPI Narrative: 49-year-old male with a history of diabetes, hypertension, hyperlipidemia, renal colic presents the ER with complaints of left flank pain which he noticed with waking. Pain became more severe around 12 and was associated with vomiting. Patient received Toradol prior to arrival with EMS and is feeling much improved. Denies any radiation of pain. No fevers or chills. No urinary symptoms Related Data Home Medications ?Medication ?Instructions ?Recorded ?Confirmed amitriptyline 25 mg tablet 50 mg PO BEDTIME 01/01/23 07/06/24 escitalopram oxalate 5 mg tablet 5 mg PO DAILY 07/08/23 07/06/24 hydroxyzine HCl 25 mg tablet 25 mg PO TID 10/07/23 07/06/24 topiramate 100 mg tablet 300 mg PO DAILY 10/07/23 07/06/24 ipratropium 20 mcg-albuterol 100 1 puff inhalation Q6H PRN 10/27/23 07/06/24 mcg/actuation mist for inhalation (Combivent Respimat) Previous Rx's ?Medication ?Instructions ?Recorded triamcinolone acetonide 0.1 % 1 appl topical DAILY 30 days #80 04/21/22 topical cream grams bupropion HCl 150 mg 24 hr tablet, 150 mg PO QAM 90 days #90 tabs 05/06/22 extended release aripiprazole 5 mg tablet 5 mg PO DAILY 90 days #90 tabs 05/11/22 bupropion HCl 300 mg 24 hr tablet, 300 mg PO DAILY 90 days #90 tabs 05/11/22 extended release omeprazole 20 mg capsule,delayed 20 mg PO BID 90 days #180 caps 07/23/23 release tamsulosin 0.4 mg capsule 0.4 mg PO DAILY 90 days #90 caps 09/23/23 rosuvastatin 40 mg tablet 40 mg PO DAILY 90 days #90 tabs 10/07/23 aspirin 81 mg tablet,delayed 81 mg PO DAILY 90 days #90 tabs 10/21/23 release (Adult Low Dose Aspirin) umeclidinium 62.5 mcg-vilanterol 1 inh inhalation Q24H 30 days #60 12/22/23 25 mcg/actuation powdr for ea inhalation (Anoro Ellipta) isosorbide mononitrate 30 mg 30 mg PO DAILY 90 days #90 tabs 04/25/24 tablet,extended release 24 hr cholecalciferol (vitamin D3) 25 25 mcg PO DAILY 90 days #90 caps 05/31/24 mcg (1,000 unit) capsule metformin 500 mg tablet 500 mg PO BID 90 days #180 tabs 06/01/24 loratadine 10 mg tablet 10 mg PO DAILY 90 days #90 tabs 06/30/24 clotrimazole 1 % topical cream 1 appl topical BID 2 weeks #45 07/06/24 grams carvedilol 25 mg tablet 25 mg PO Q12H 90 days #180 tabs 07/08/24 cyanocobalamin (vitamin B-12) 1,000 mcg PO DAILY 90 days #90 tabs 07/08/24 1,000 mcg tablet prednisone 20 mg tablet 20 mg PO DAILY 7 days #7 tabs 07/13/24 tamsulosin 0.4 mg capsule 0.4 mg PO DAILY #7 caps 07/13/24 amlodipine 10 mg tablet 10 mg PO DAILY 90 days #90 tabs 07/14/24 gabapentin 300 mg capsule 300 mg PO TID 30 days #90 caps 07/15/24 pramipexole 0.5 mg tablet 0.5 mg PO BEDTIME 30 days #30 tabs 07/15/24 duloxetine 30 mg capsule,delayed 30 mg PO DAILY 90 days #90 caps 08/04/24 release indomethacin 25 mg capsule 25 mg PO BID 30 days #60 caps 08/04/24 ibuprofen 800 mg tablet 800 mg PO Q8H PRN pain #30 tabs 08/11/24 oxycodone 5 mg tablet 5 mg PO BID PRN pain #7 tabs 08/11/24 Allergies Allergy/AdvReac Type Severity Reaction Status Date / Time erythromycin base Allergy Mild Confusion Verified 08/14/24 14:42 clonidine AdvReac Severe Vomiting Verified 08/14/24 14:42 Review of Systems 2 Review of Systems: Yes all other systems are reviewed and are negative Constitutional: Constitutional: Reports no additional constitutional complaints, Denies body ache(s), Denies chills, Denies fever(s), Denies headache(s) and Denies weakness Eyes: Eyes: Reports no additional eye complaints and Denies change in vision ENT: Reports system reviewed and no additional complaints, except as documented, Denies dizziness, Denies headache(s), Denies nasal congestion, Denies nasal discharge and Denies neck pain Cardiovascular: Cardiovascular: Reports no additional cardiovascular complaints, Denies chest pain, Denies leg edema and Denies dyspnea Respiratory: Respiratory: Reports no additional respiratory complaints, Denies cough and Denies dyspnea Gastrointestinal: Gastrointestinal: Reports no additional gastrointestinal complaints, Denies abdominal pain, Denies diarrhea, Denies nausea and Denies vomiting Genitourinary: Genitourinary: Denies urinary incontinence Musculoskeletal: Musculoskeletal: Reports no additional musculoskeletal complaints, Reports back pain, Denies arthralgias, Denies joint swelling, Denies neck pain, Denies numbness and Denies tingling Integumentary/Breasts: Skin/Breast: Reports system reviewed and no additional complaints, except as docu and Denies rash Neurologic: Reports system reviewed and no additional complaints, except as documented, Denies Abnormal speech present, Denies dizziness, Denies headache(s), Denies numbness, Denies tingling and Denies weakness PMFSH Past Medical History Attestation statement: The following information was validated with the patient. Source: old records reviewed and nursing notes reviewed Medical History Adult general medical exam Laboratory exam ordered as part of routine general medical examination Imbalance Left-sided chest wall pain Dizziness Fatigue Unsteady gait Yeast infection of the skin Cough Abnormal lung sounds Abnormal CT lung screening Headache Puncture wound of scalp Left knee pain Sacroiliitis Osteoarthritis of knee Infection of skin Exposure to potential infection Urinary hesitancy Screening for prostate cancer Screening for colon cancer Difficulty swallowing Decreased visual acuity Low vitamin B12 level Obesity (BMI 30-39.9) Morbid obesity Elevated fasting glucose Chest discomfort COPD (chronic obstructive pulmonary disease) KELSY on CPAP Torn rotator cuff Diabetes High cholesterol Hypertension Surgical History Stented coronary artery History of carpal tunnel surgery Family History Family History Other Mental health disorder Substance abuse Social History Social History Housing: House Alcohol intake: never Patient Tobacco Use Status: Former Tobacco user e-Cigarette/Vaping Use: Never Used Second Hand Smoke Exposure: No Advance Directives: No Advance Directives Information Provided: Yes Do you have a plan to hurt others: No Plan service: No Current occupational status: unemployed Current occupational exposures/hazards: No Cognitive needs: No Hearing needs: No Vision needs: Yes Physical Exam 2 Vital Signs: Vital Signs: Last Vital Signs Temp 98.4 F 08/14/24 18:25 Pulse 100 08/14/24 18:25 Resp 16 08/14/24 18:25 BP 137/81 08/14/24 18:25 Pulse Ox 97 08/14/24 18:25 O2 Del Method Room Air 08/14/24 15:47 BMI result Body Mass Index 40.7 Const: General: cooperative, healthy appearing, comfortable and no acute distress Orientation/consciousness: patient oriented x3 Limitations: no limitations HEENT: Head: Yes normal to inspection Ears: hearing grossly normal bilaterally General nose exam: Normal external nose present Face and sinus: Yes normal facial exam Mouth: Normal oral and palatal mucosa present Throat: Yes posterior oropharynx normal Eyes: General: appearance normal, both eyes and all related structures P upils: Equal, round and reactive pupils present Neck: Neck: Yes normal visual inspection Chest: Chest palpation & inspection: normal inspection of the chest Resp: Effort & Inspection: normal respiratory effort Auscultation: clear to auscultation bilaterally Cardio: Rate: regular rate Rhythm: regular rhythm Peripheral pulses: P eripheral pulses 2+ throughout GI: Inspection: Yes normal to inspection Palpation (GI): Soft to palpation and nontender Auscultation: normal bowel sounds : General: Yes CVA tenderness ( left) Back/Spine/Pelvis: Back: CVA tenderness ( left) Thoracic/Lumbar Spine: t horacic and lumbar spine normal to inspection Skin: General skin exam: no rashes or lesions noted Neuro: General: patient oriented x3, no focal motor deficits and normal sensation to monofilament Cranial nerves: Yes Equal, round and reactive pupils present Cognition (Neuro): normal cognition Speech: No Abnormal speech present Gait exam (Neuro): Normal gait present Motor exam (neuro): 5/5 motor strength present throughout Extrem: General: Yes normal to inspection, Yes no pedal edema and Yes no calf tenderness Medications Administered Discontinued Medications Generic Name Dose Route Start Last Admin Trade Name Nilesh PRN Reason Stop Dose Admin Sodium Chloride 1,000 mls @ 999 mls/hr 08/14/24 15:23 08/14/24 18:16 Ns IV 08/14/24 16:23 Infused .Q1H1M STA Infusion Ondansetron HCl 4 mg 08/14/24 15:23 08/14/24 15:40 Ondansetron Hcl 4 Mg/2 Ml Vial IVPUSH 08/14/24 15:24 4 mg ONCE ONE Administration Medical Decision Making Medical Decision Making [facility] Narrative: 49-year-old male with a history of renal colic here with reports of left flank pain and vomiting x1 day. Received Toradol prior to arrival with improvement of pain. On exam patient has mild left CVA tenderness. Will obtain labs, UA, CT Will provide antiemetic and fluids Differential Diagnosis Differential Diagnoses: The differential diagnosis associated with the presentation includes renal colic, pyelonephritis, lumbar strain low suspicion for AAA, epidural abscess, cord compression, fracture, diverticulitis, appendicitis Admission/Observation Consideration of admission/observation: Escalation of care including admission/observation considered CT shows a 1-2 mm stone at the left UVJ. Patient has normal renal function. His urine is uninfected. His pain is well controlled. He is no longer vomiting is tolerating p.o. therefore I will discharge him home and have him follow up outpatient with Urology. I offered him both pain medicine and antiemetic for home but he declined this. Lab Data [facility] Lab Attestation statement: I reviewed the patient's lab results. 08/14/24 16:53 08/14/24 16:53 Labs: Lab Results 08/14/24 08/14/24 Range/Units 16:53 17:27 WBC 7.4 (4.8-10.8) X10*3/uL RBC 4.62 (4.60-5.80) X10*6/uL Hgb 13.5 L (14.0-18.0) g/dl Hct 39.8 L (42.0-52.0) % MCV 86.1 (80.0-98.0) fL MCH 29.2 (27.0-33.0) pg MCHC 33.9 (31.0-36.0) g/dl RDW 13.2 (11.0-16.0) % Plt Count 184 (160-400) X10*3/uL MPV 9.6 (9.4-12.4) fL Immature Gran % (Auto) 0.5 H (0.0-0.4) % Neut % (Auto) 69.4 (45-73) % Lymph % (Auto) 17.9 L (20-40) % Coal % (Auto) 10.2 (2-11) % Eos % (Auto) 1.5 (0-4) % Baso % (Auto) 0.5 (0-2) % Lymph # (Auto) 1.3 (1.2-4.9) X10*3/uL Coal # (Auto) 0.8 (0.1-1.2) X10*3/uL Eos # (Auto) 0.1 (0.0-0.4) X10*3/uL Baso # (Auto) 0.0 (0.0-0.2) X10*3/uL Abs Immat Gran (auto) 0.04 H (0.00-0.03) X10*3/uL Absolute Neuts (auto) 5.1 (2.0-8.3) x10*3/uL Absolute Nucleated RBC 0.000 (0.0-0.012) X10*3/uL Nucleated RBC % (auto) 0.0 (0.0-0.2) /100WBC Sodium 140 (135-145) mmol/L Potassium 4.1 (3.3-5.1) mmol/L Chloride 113 H (96-108) mmol/L Carbon Dioxide 20 L (22-29) mmol/L Anion Gap 11 L (12-20) BUN 17 H (9-16) mg/dL Creatinine 1.13 (0.5-1.4) mg/dL Estim Creat Clear Calc 114.1 Estimated GFR > 60 Random Glucose 172 H (60-115) mg/dL Calcium 8.9 (8.4-10.2) mg/dL Total Bilirubin 0.3 (0.0-1.0) mg/dL Direct Bilirubin 0.1 (0.0-0.5) mg/dL AST 33 (5-37) U/L ALT 30 (0-40) U/L Alkaline Phosphatase 97 (39-117) U/L Total Protein 7.0 (6.5-8.0) g/dL Albumin 3.7 (3.5-5.0) g/dL Urine Color Yellow Urine Appearance Clear Urine pH 8.0 (5.0-9.0) Ur Specific Secretary 1.015 (1.005-1.025) Urine Protein Negative (Neg-Trace) mg/dL Urine Glucose (UA) 100 H (Negative) mg/dL Urine Ketones Negative (Negative) mg/dL Urine Blood Negative (Negative) Urine Nitrite Negative (Negative) Ur Leukocyte Esterase Negative (Negative) Independent Interpretation I performed an independent interpretation of an: CT Scan Interpretation: I independently viewed the CT scan agree with the radiology report Radiology Impression Discussion of test interpretation with radiology: I have reviewed the radiologist's reading. Radiologist Impression: [place] [id number] CT Scan Report Signed Patient: Mina Lopes MR#: [id number] : 1975 Acct:[id number] Age/Sex: 49 / M ADM Date: 08/14/24 Loc: .ED Attending Dr: Ordering Physician: Jaquelin Mejia NP Date of Service: 08/14/24 Procedure(s): CT abdomen pelvis wo IV con Accession Number(s): [id number] cc: Leland Trujillo MD; Jaquelin Mejia NP~ Report Number: [id number]: Total DLP = 1196.00 mGy-cm CLINICAL HISTORY: L flank pain, r.o colic CT abdomen and pelvis without contrast Comparison: CT/ND/SR - CT ABDOMEN PELVIS WO IV CON - 07/13/24 07:57 EST Findings: No consolidation or effusion. A few tiny nodules are present at the lung bases, nonspecific but similar to prior. There is a 1-2 mm calculus at the left ureterovesicular junction, coronal image 67. There is mild left hydroureteronephrosis and mild stranding about the left kidney. No additional left-sided calculi. There is a 2 mm right renal calculus. No obstructive right-sided uropathy. The bladder is partially distended. The liver, spleen, gallbladder, adrenal glands and pancreas are unremarkable. No bowel obstruction or free air. No acute osseous finding. Impression: There is a tiny calculus at the left ureterovesicular junction. Mild left hydroureteronephrosis and stranding about the left kidney. Additional incidental findings. Independent Historian Clinical information obtained from an independent historian. History obtained from or confirmed by: EMS Prescription Management I considered prescription management with: Pain Medication Discharge Plan Discharge Clinical Impression: Renal colic Patient Disposition: Home, Self-Care Instructions: Renal Colic (ED) Additional Instructions: start with clear liquids and advance your diet as tolerated follow-up with your urologist return for worsening pain, vomiting with inability to drink liquids, fever >100.4 Prescriptions: No Action triamcinolone acetonide 0.1 % cream 1 appl topical DAILY 30 Days Qty: 80 1RF bupropion HCl 150 mg tablet extended release 24 hr 150 mg PO QAM 90 Days Qty: 90 2RF bupropion HCl 300 mg tablet extended release 24 hr 300 mg PO DAILY 90 Days Qty: 90 2RF aripiprazole 5 mg tablet 5 mg PO DAILY 90 Days Qty: 90 2RF omeprazole 20 mg capsule,delayed release(DR/EC) 20 mg PO BID 90 Days Qty: 180 3RF tamsulosin 0.4 mg capsule 0.4 mg PO DAILY 90 Days Qty: 90 2RF aspirin [Adult Low Dose Aspirin] 81 mg tablet,delayed release (DR/EC) 81 mg PO DAILY 90 Days Qty: 90 2RF Anoro Ellipta 62.5-25 mcg/actuation blister with device 1 inh inhalation Q24H 30 Days Qty: 60 2RF isosorbide mononitrate 30 mg tablet extended release 24 hr 30 mg PO DAILY 90 Days Qty: 90 3RF cholecalciferol (vitamin D3) 25 mcg (1,000 unit) capsule 25 mcg PO DAILY 90 Days Qty: 90 0RF metformin 500 mg tablet 500 mg PO BID 90 Days Qty: 180 0RF loratadine 10 mg tablet 10 mg PO DAILY 90 Days Qty: 90 0RF cyanocobalamin (vitamin B-12) 1,000 mcg tablet 1,000 mcg PO DAILY 90 Days Qty: 90 0RF carvedilol 25 mg tablet 25 mg PO Q12H 90 Days Qty: 180 0RF Rx Instructions: must administer with a meal/food amlodipine 10 mg tablet 10 mg PO DAILY 90 Days Qty: 90 0RF gabapentin 300 mg capsule 300 mg PO TID 30 Days Qty: 90 0RF pramipexole 0.5 mg tablet 0.5 mg PO BEDTIME 30 Days Qty: 30 0RF indomethacin 25 mg capsule 25 mg PO BID 30 Days Qty: 60 0RF Rx Instructions: administer with food or milk duloxetine 30 mg capsule,delayed release(DR/EC) 30 mg PO DAILY 90 Days Qty: 90 0RF prednisone 20 mg tablet 20 mg PO DAILY 7 Days Qty: 7 0RF tamsulosin 0.4 mg capsule 0.4 mg PO DAILY Qty: 7 0RF oxycodone 5 mg tablet 5 mg PO BID PRN (Reason: pain) Qty: 7 0RF Rx Instructions: Partial Fill upon patient request. ibuprofen 800 mg tablet 800 mg PO Q8H PRN (Reason: pain) Qty: 30 0RF escitalopram oxalate 5 mg tablet 5 mg PO DAILY amitriptyline 25 mg tablet 50 mg PO BEDTIME topiramate 100 mg tablet 300 mg PO DAILY Rx Instructions: Take 1 tab in the morning and 2 at bedtime. hydroxyzine HCl 25 mg tablet 25 mg PO TID rosuvastatin 40 mg tablet 40 mg PO DAILY 90 Days Qty: 90 3RF Combivent Respimat 20-100 mcg/actuation mist 1 puff inhalation Q6H PRN clotrimazole 1 % cream 1 appl topical BID 14 Days Qty: 45 1RF Referrals: Leland Trujillo MD [Primary Care Provider] - 1 week Print Language: Indian
[2024-08-14] MEDS: 0.9 % Sodium Chloride 1,000 ML 999 ML IV (15:40)
[2024-08-14] MEDS: ondansetron HCL 4 MG/2 ML VIAL IVPUSH (15:40)
[2024-08-14 15:47] VITALS: BP 133/75; PULSE 100; RESP 16; TEMP 36.4; O2SAT 97
--- NOTE | 2024-08-14 15:48 | MHC.EDTECH ---
This pct assumed care of Patient at 1500 ,vitals taken ,Patient was given urine cup for urine sample .
--- NOTE | 2024-08-14 16:55 | MHC.EDTECH ---
Patient blood drawn and sent to lab .
[2024-08-14 16:57] LABS: MANUAL DIFF FLAG NO
[2024-08-14 16:59] LABS: Basophils Percent Auto 0.5 % (0-2); Eosinophils Absolute Auto 0.1 X10*3/uL (0.0-0.4); Eosinophils Percent Auto 1.5 % (0-4); Hematocrit 39.8 % (42.0-52.0); Hemoglobin 13.5 g/dl (14.0-18.0); Imm Gran Abs Auto 0.04 X10*3/uL (0.00-0.03); Imm Gran Pct Auto 0.5 % (0.0-0.4); Lymphocytes Absolute Auto 1.3 X10*3/uL (1.2-4.9); Lymphocytes Percent Auto 17.9 % (20-40); Mean Corpuscular HGB Conc 33.9 g/dl (31.0-36.0); Mean Corpuscular Hemoglobin 29.2 pg (27.0-33.0); Mean Corpuscular Volume 86.1 fL (80.0-98.0); Mean Platelet Volume 9.6 fL (9.4-12.4); Monocytes Absolute Auto 0.8 X10*3/uL (0.1-1.2); Monocytes Percent Auto 10.2 % (2-11); Neutrophils Absolute Auto 5.1 x10*3/uL (2.0-8.3); Neutrophils Percent Auto 69.4 % (45-73); Platelet Count 184 X10*3/uL (160-400); Red Blood Count 4.62 X10*6/uL (4.60-5.80); Red Cell Distribution Width 13.2 % (11.0-16.0); White Blood Count 7.4 X10*3/uL (4.8-10.8)
[2024-08-14 17:17] LABS: Alanine Aminotransferase 30 U/L (0-40); Albumin Level 3.7 g/dL (3.5-5.0); Alkaline Phosphatase 97 U/L (39-117); Anion Gap 11 (12-20); Aspartate Amino Transferase 33 U/L (5-37); Bilirubin Direct 0.1 mg/dL (0.0-0.5); Bilirubin Total 0.3 mg/dL (0.0-1.0); Blood Urea Nitrogen 17 mg/dL (9-16); Calcium 8.9 mg/dL (8.4-10.2); Carbon Dioxide 20 mmol/L (22-29); Chloride 113 mmol/L (96-108); Creatinine Clr Calc Pharmacy 114.1; Estimated Glomerular Filt Rate > 60; Glucose Random 172 mg/dL (60-115); Potassium 4.1 mmol/L (3.3-5.1); Sodium 140 mmol/L (135-145)
[2024-08-14 17:33] LABS: Appearance Urine Clear; Color Urine Yellow; Glucose Urine UA 100 mg/dL (Negative); Leukocyte Esterase Urine Negative (Negative); Nitrite Urine Negative (Negative); Specific Gravity - Urine 1.015 (1.005-1.025); Urine Blood Negative (Negative); Urine Ketones Negative (Negative); Urine Protein Negative (Neg-Trace)
[2024-08-14 18:25] VITALS: BP 137/81; PULSE 100; RESP 16; TEMP 36.9; O2SAT 97
== END 2024-08-14 18:46 | disposition home or self-care (01) ==
PROVIDERS: Nurse Practitioner Family; Emergency Provider Emergency Medicine; PCP Family Medicine
DX: N23 Unspecified renal colic (principal); R11.2 Nausea with vomiting, unspecified; Z87.891 Personal history of nicotine dependence; Z79.899 Other long term (current) drug therapy
CPT/HCPCS: 36415; 74176; 80048; 80076; 81003; 85025; 96361; 96374; 99283; 99284; J2405

== ENCOUNTER → 2024-08-14 15:23 | Outpatient (BNV) | payer OTHER, SELFPAY | PROVIDERS: Emergency Provider Emergency Medicine; PCP Family Medicine; Visit Provider Radiology Vascular & Interventional Radiology | DX: N20.1 Calculus of ureter (principal) | CPT/HCPCS: 74176 ==

== ENCOUNTER 2024-08-24 19:40 | Emergency (ER) | payer OTHER, SELFPAY ==
--- NOTE | ~2024-08-24 | XR_ITS ---
CLINICAL HISTORY: pain, known rib fxs left 2 view chest x-ray Comparison: CT/SR - CT ABDOMEN PELVIS WO IV CON - 08/14/24 15:28 EST CR/WI - XR RIBS LT MIN 3V W CXR1V - 08/10/24 19:40 EST CR/SR - XR CHEST 2V - 05/12/22 11:37 EDT Findings: Heart size normal. No pleural effusion or pneumothorax. Mild subsegmental bibasilar atelectasis. No convincing evidence of rib fracture. Previously questioned artifacts versus lucencies in the left 6th and 7th ribs are no longer demonstrated. IMPRESSION: 1. No acute findings. No convincing evidence of rib fracture. Mild bibasilar subsegmental atelectasis may be due to pain limiting full inspiration. 2. Of note, mild left hydronephrosis and left perinephric fat stranding were present on 08/14/2024 exam. These findings can produce ipsilateral pleuritic chest pain due to reactive inflammation of the ipsilateral diaphragm. This document has been electronically signed by: Andrews Hidalgo MD on 08/24/2024 22:00:39
[2024-08-24 19:53] VITALS: BP 177/87; PULSE 98; O2SAT 96
[2024-08-24 20:02] VITALS: BP 124/87; PULSE 85; RESP 20; TEMP 37.1; O2SAT 98; BMI 40.7
--- NOTE | 2024-08-24 20:06 | ECG_ITS ---
Test Reason : chest pain Blood Pressure : */* mmHG Vent. Rate : 88 BPM Atrial Rate : 88 BPM P-R Int : 200 ms QRS Dur : 94 ms QT Int : 346 ms P-R-T Axes : 47 91 45 degrees QTcB Int : 418 ms Normal sinus rhythm Rightward axis Borderline ECG When compared with ECG of 10-Aug-2024 20:27, No significant change was found Referred By: Kathya Diaz Electronically Signed By: KATHRYN AHUMADA
[2024-08-24 20:30] LABS: Basophils Percent Auto 0.7 % (0-2); Eosinophils Absolute Auto 0.2 X10*3/uL (0.0-0.4); Eosinophils Percent Auto 3.1 % (0-4); Hematocrit 40.8 % (42.0-52.0); Imm Gran Abs Auto 0.03 X10*3/uL (0.00-0.03); Imm Gran Pct Auto 0.5 % (0.0-0.4); Lymphocytes Absolute Auto 1.5 X10*3/uL (1.2-4.9); Lymphocytes Percent Auto 24.8 % (20-40); MANUAL DIFF FLAG NO; Mean Corpuscular HGB Conc 34.3 g/dl (31.0-36.0); Mean Corpuscular Volume 84.5 fL (80.0-98.0); Mean Platelet Volume 9.4 fL (9.4-12.4); Monocytes Absolute Auto 0.8 X10*3/uL (0.1-1.2); Monocytes Percent Auto 12.8 % (2-11); Neutrophils Absolute Auto 3.4 x10*3/uL (2.0-8.3); Neutrophils Percent Auto 58.1 % (45-73); Platelet Count 204 X10*3/uL (160-400); Red Blood Count 4.83 X10*6/uL (4.60-5.80); White Blood Count 5.9 X10*3/uL (4.8-10.8)
[2024-08-24 20:32] VITALS: RESP 17
[2024-08-24] MEDS: Ketorolac Tromethamine 15 MG/ML VIAL IVPUSH (20:32)
[2024-08-24] MEDS: Morphine Sulfate 4 MG/ML CARTRIDGE IVPUSH (20:32)
--- OUTSIDE RECORDS SUMMARY | 2024-08-24 20:42 | XMS_ITS | Data Portability ---
Author Organization [place] - [facility], Allergy Address [address] [place] [id number] Assessment No assessment recorded. Plan of Treatment Reminders Order Date Submit Date Provider Last Modified By Organization Details Last Modified Time Details Appointments None recorded. Lab None recorded. 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 2023 024 [email or web address] 2 [facility], [address], [place], [address], 4 12:21:10 Procedures None recorded. Surgeries None [...] and Address Organization Details Recorded Time Dysphagia 93392115 Active 024 BERNARDA Tellez MD 100 [facility],[address], [address] - 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 09:13:57 Problem Notes None recorded. Procedures Surgical History Date Name Laterality Status Provider Name and Address Organization Details Recorded Time 01/20/2024 FFL_RE completed BERNARDA BELL MD 100 [facility] 100, [place], [phone], [facility] 01/20/2024 09:14:05 Imaging Results Imaging Date Name Status LastModified by Organiz ation Details LastModified Time 10/01/2023 [facility]o [email or web address] not available 01/22/2024 09:27:19 Procedure Notes [...] Updated DateTime 01/20/2024 182.88 cm 35.3 kg/m2 110877.02 g Kat Major [place] - [facility] 01/20/2024 09:04:31 Social History None recorded. Functional Status None recorded. Mental Status None recorded. Family History Nothing Reported. Medical History No medical history recorded. Past Encounters Encounter ID Performer Location Encounter Start Date Encounter Closed Date Diagnosis/Indication Diagnosis SNOMED-CT Code Diagnosis ICD10 Code Diagnosis Note [id number] BERNARDA BELL MD [facility] [address] [phone] 01/20/2024 08:46:56 01/20/2024 09:20:43 Dysphagia 01739675 R13.10 Laryngosco py was normal. Mild. Recommend small bites and washing down with fluid and to call if it worsens. 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 I discussed I don't manage these tumors and I will refer him to a head and neck surgeon. If surveillan ce is recommende d I am glad to obtain serial imaging for him. He was agreeable to the referral. Health Concerns Section Related Observation LastModified by Organization Detai ls LastModified Time None Recorded Concern Status LastModified by Organization Details LastModified Time None Recorded Advance Directives Directive None Recorded Payers Encounter Date Sequence Insurance Name Policy Number Policy Rutledge Covered Member ID Rutledge Member ID Guarantor Name 01/20/2024 1 [facility] NET PLAN (MEDICAID HMO) Mina [place] [id number] Mina Marianne Notes Date Note Type Note Provider Name [...] smoking 3 years ago. BERNARDA BELL MD [address] [place] [address], [phone], [facility] - [facility] 01/20/2024 09:23:32
--- OUTSIDE RECORDS SUMMARY | 2024-08-24 20:42 | XMS_ITS | Clinical Summary ---
Author Organization 175 [facility] Address [address] [place] [address] Phone Care Team Providers Care Asset Administrator Name Role Phone Leland Trujillo MD Primary Care Provider Allergies Active Allergy Reactions Criticality Noted Date Comments Azithromycin Nausea And Vomiting,Weakness 07/27 Clonidine Nausea And Vomiting 07/27/2018 Erythromycin Anaphylaxis High 04/21/2011 Medications Medication Sig Dispensed Refills Start Date End Date Status amLODIPine (NORVASC) 10 mg tablet Take 1 tablet (10 mg total) by mouth 1 (one) time each day. Active ARIPiprazole (ABILIFY) 5 mg tablet Take 1 tablet (5 mg total) by mouth 1 (one) time each day. Active atorvastatin (LIPITOR) 80 mg tablet Take 1 tablet (80 mg total) by mouth 1 (one) time each day. Active buPROPion SR (WELLBUTRIN SR) 150 mg 12 hr tablet Take 1 tablet (150 mg total) by mouth 2 (two) times a day. Active clopidogreL (PLAVIX) 75 mg tablet Take 1 tablet (75 mg total) by mouth 1 (one) time each day. Active cyanocobalamin (VITAMIN B-12) 1,000 mcg tablet Take 1 tablet (1,000 mcg total) by mouth 1 (one) time each day. Active DULoxetine (CYMBALTA) [address] capsule Take 1 capsule (30 mg total) by mouth 1 (one) time each day. Active gabapentin (NEURONTIN) 300 mg capsule Take 1 capsule (300 mg total) by mouth 2 (two) times a day. Active indomethacin (INDOCIN) 25 mg capsule Take 1 Capsule by mouth 2 times daily (with meals). Active loratadine (CLARITIN) 10 mg tablet Take 1 tablet (10 mg total) by mouth 1 (one) time each day. Active metFORMIN (GLUCOPHAGE) 500 mg tablet Take 1 Tablet by mouth 2 times daily (with meals). Active omeprazole (PriLOSEC) [address] capsule Take 1 capsule (20 mg total) by mouth 1 (one) time each day. Active pramipexole (MIRAPEX) 0.5 mg tablet Take 1 Tablet by mouth 3 times daily. Active tamsulosin (FLOMAX) 0.4 mg 24 hr capsule Take 1 Capsule by mouth daily. Take 30 mins after same meal every day. Active triamcinolone (KENALOG) 0.1 % cream Apply topically 2 times daily. Active NYSTATIN ORAL Take by mouth. Active Immunizations Name Administration Dates Next Due Moderna SARS-CoV-2 COVID-19, mRNA, LNP-S, preservative free 12/01/2020,11/03/2020 Medical History Medical History Date Comments Diabetes mellitus (CMS/HCC) DX:D iabetes mellitus (HCC) Heart attack (CMS/HCC) DX:Heart attack (HCC) Mixed hyperlipidemia DX:Mixed hy perlipidemia HTN (hypertension) DX:HTN (hyper tension) Social History Tobacco Use Types Packs/Day Years Used Date Smoking Tobacco: Never Assessed Sex and Gender Information Value Date Recorded Sex Assigned at Not on file Gender Identity Not on file Sexual Orientation Not on file Obstetrics History Last Filed Vital Signs Vital Sign Reading Time Taken Comments Blood Pressure - - Pulse - - Temperature - - Respiratory Rate - - Oxygen Saturation - - Inhaled Oxygen Concentration - - Weight 118 kg (260 lb) 04/27/2024 9:07 AM EDT Height 182.9 cm (6') 04/27/2024 9:07 AM EDT Body Mass Index 35.26 04/27/2024 9:07 AM EDT Plan of Treatment Upcoming Encounters Date Type Department Care Team (Late st Contact Info) Description 08/31/2024 1:30 PM EST Office Visit Orthopedic Surgery - [place] [address] [phone] Joe Diaz DPM 175 [facility] [address] [place] [address] Health Maintenance Due Date Last Done Comments Pneumococcal Vaccine: Pediatrics (0 to 5 Years) and At-Risk Patients (6 to 64 Years) (1 of 2 - PCV) 01/05/1982 DTaP,Tdap,and Td Vaccines (1 - Tdap) 01/05/1995 Hepatitis B Vaccines (1 of 3 - 19+ 3-dose series) 01/05/1995 Colorectal Cancer Screening: Colonoscopy 06/24/2022 Depression Screening 06/24/2022 HIV Screening 06/24/2022 Social Influencers of Health Screening 06/24/2022 COVID-19 Vaccine (3 - 2023-2 5 season) 2024 12/01/2020, 11/03/2020 Influenza Vaccine (#1) 2024 Cholesterol Screening (Lipid Panel) 06/29/2026 06/29/2021 Hepatitis C Screening Completed 09/01/2020 HIB Vaccines Aged Out No longer eligi ble based on patient's age to complete this topic HPV Vaccines Aged Out No longer eligi ble based on patient's age to complete this topic Hepatitis A Vaccines Aged Out No long er eligible based on patient's age to complete this topic IPV Vaccines Aged Out No longer eligi ble based on patient's age to complete this topic MMR Vaccines Aged Out No longer eligi ble based on patient's age to complete this topic Meningococcal ACWY Vaccine Aged Out N o longer eligible based on patient's age to complete this topic RSV Immunization Patients Under 20 months Aged Out No longer eligible b ased on patient's age to complete this topic Varicella Vaccines Aged Out No longer eligible based on patient's age to complete this topic Procedures Procedure Name Priority Date/Time Associated Diagnosis Comments LIPID PANEL Routine 06/29/2021 HEPATITIS C SCREENING Routine 09/01/2020 from Last 3 Months or Most Recently Relevant to Health Maintenance Results * Lipid panel (06/29/2021) LDL/HDL Ratio 0 Comment:abstracted, no inter pretation Triglycerides 0 mg/dL Comment:abstracted, no inter pretation Cholesterol 0 mg/dL Comment:abstracted, no inter pretation HDL 0 mg/dL Comment:abstracted, no inter pretation LDL Cholesterol 0.0 mg/dL Comment:abstracted, no inter pretation Blood Venous blood specimen / Unknown Historical Provider LAB BLOOD ORDERAB LES * Hepatitis C Screening (09/01/2020) Pathologist [facility] Hepatitis C Screening abstracted Historical Provider [facility] from Last 3 Months or Most Recently Relevant to Health Maintenance Care Teams Asset Administrator Relationship Specialty Start Date End Date Leland Trujillo MD [address] [place] [address] Dr Michelle MA PCP - General 05/09/22
--- NOTE | 2024-08-24 20:43 | ED_ITS ---
HPI - Chest Pain General Chief Complaint: Chest Pain Stated Complaint: chest pain. 3 fx ribs from recent fall Time Seen by Provider: 08/24/24 20:00 Source: patient Limitations: no limitations History of Present Illness ED Provider: Kathya Diaz PA-C HPI narrative: 49-year-old morbidly obese male with a history of chronic pain, lumbar disc herniation with radiculopathy, arthritis, carpal tunnel, neuropathy, COPD, KELSY, hypertension, hyperlipidemia, diabetes, coronary artery disease, STEMI, who sustained left-sided rib fractures 08/10/2024 presents with chest pain. Patient states he developed left anterior chest discomfort after his dog jumped up on him. Denies associated shortness of breath diaphoresis or nausea. Related Data Home Medications ?Medication ?Instructions ?Recorded ?Confirmed amitriptyline 25 mg tablet 50 mg PO BEDTIME 01/01/23 07/06/24 escitalopram oxalate 5 mg tablet 5 mg PO DAILY 07/08/23 07/06/24 hydroxyzine HCl 25 mg tablet 25 mg PO TID 10/07/23 07/06/24 topiramate 100 mg tablet 300 mg PO DAILY 10/07/23 07/06/24 ipratropium 20 mcg-albuterol 100 1 puff inhalation Q6H PRN 10/27/23 07/06/24 mcg/actuation mist for inhalation (Combivent Respimat) Previous Rx's ?Medication ?Instructions ?Recorded triamcinolone acetonide 0.1 % 1 appl topical DAILY 30 days #80 04/21/22 topical cream grams bupropion HCl 150 mg 24 hr tablet, 150 mg PO QAM 90 days #90 tabs 05/06/22 extended release aripiprazole 5 mg tablet 5 mg PO DAILY 90 days #90 tabs 05/11/22 bupropion HCl 300 mg 24 hr tablet, 300 mg PO DAILY 90 days #90 tabs 05/11/22 extended release omeprazole 20 mg capsule,delayed 20 mg PO BID 90 days #180 caps 07/23/23 release tamsulosin 0.4 mg capsule 0.4 mg PO DAILY 90 days #90 caps 09/23/23 rosuvastatin 40 mg tablet 40 mg PO DAILY 90 days #90 tabs 10/07/23 aspirin 81 mg tablet,delayed 81 mg PO DAILY 90 days #90 tabs 10/21/23 release (Adult Low Dose Aspirin) umeclidinium 62.5 mcg-vilanterol 1 inh inhalation Q24H 30 days #60 12/22/23 25 mcg/actuation powdr for ea inhalation (Anoro Ellipta) isosorbide mononitrate 30 mg 30 mg PO DAILY 90 days #90 tabs 04/25/24 tablet,extended release 24 hr cholecalciferol (vitamin D3) 25 25 mcg PO DAILY 90 days #90 caps 05/31/24 mcg (1,000 unit) capsule metformin 500 mg tablet 500 mg PO BID 90 days #180 tabs 06/01/24 loratadine 10 mg tablet 10 mg PO DAILY 90 days #90 tabs 06/30/24 clotrimazole 1 % topical cream 1 appl topical BID 2 weeks #45 07/06/24 grams carvedilol 25 mg tablet 25 mg PO Q12H 90 days #180 tabs 07/08/24 cyanocobalamin (vitamin B-12) 1,000 mcg PO DAILY 90 days #90 tabs 07/08/24 1,000 mcg tablet prednisone 20 mg tablet 20 mg PO DAILY 7 days #7 tabs 07/13/24 tamsulosin 0.4 mg capsule 0.4 mg PO DAILY #7 caps 07/13/24 amlodipine 10 mg tablet 10 mg PO DAILY 90 days #90 tabs 07/14/24 duloxetine 30 mg capsule,delayed 30 mg PO DAILY 90 days #90 caps 08/04/24 release indomethacin 25 mg capsule 25 mg PO BID 30 days #60 caps 08/04/24 ibuprofen 800 mg tablet 800 mg PO Q8H PRN pain #30 tabs 08/11/24 oxycodone 5 mg tablet 5 mg PO BID PRN pain #7 tabs 08/11/24 pramipexole 0.5 mg tablet 0.5 mg PO BEDTIME 30 days #30 tabs 08/14/24 gabapentin 300 mg capsule 300 mg PO TID 30 days #90 caps 08/18/24 Allergies Allergy/AdvReac Type Severity Reaction Status Date / Time erythromycin base Allergy Mild Confusion Verified 08/24/24 20:04 clonidine AdvReac Severe Vomiting Verified 08/24/24 20:04 Review of Systems 2 Review of Systems: Yes all other systems are reviewed and are negative Constitutional: Constitutional: Denies fatigue and Denies fever(s) Cardiovascular: Cardiovascular: Reports chest pain and Denies dyspnea Respiratory: Respiratory: Denies cough and Denies dyspnea Gastrointestinal: Gastrointestinal: Denies abdominal pain, Denies nausea and Denies vomiting Endocrine: Endocrine: Denies fatigue [facility] Past Medical History Attestation statement: The following information was validated with the patient. Medical History Adult general medical exam Laboratory exam ordered as part of routine general medical examination Imbalance Left-sided chest wall pain Dizziness Fatigue Unsteady gait Yeast infection of the skin Cough Abnormal lung sounds Abnormal CT lung screening Headache Puncture wound of scalp Left knee pain Sacroiliitis Osteoarthritis of knee Infection of skin Exposure to potential infection Urinary hesitancy Screening for prostate cancer Screening for colon cancer Difficulty swallowing Decreased visual acuity Low vitamin B12 level Obesity (BMI 30-39.9) Morbid obesity Elevated fasting glucose Chest discomfort COPD (chronic obstructive pulmonary disease) KELSY on CPAP Torn rotator cuff Diabetes High cholesterol Hypertension Surgical History Stented coronary artery History of carpal tunnel surgery Family History Family History Other Mental health disorder Substance abuse Social History Social History Housing: House Alcohol intake: never Patient Tobacco Use Status: Former Tobacco user Smoked in Last 30 Days: No e-Cigarette/Vaping Use: Never Used Second Hand Smoke Exposure: No Use of substances other than those prescribed or required for medical reasons: No Advance Directives: No Advance Directives Information Provided: Yes service: No Current occupational status: unemployed Current occupational exposures/hazards: No Cognitive needs: No Hearing needs: No Vision needs: Yes Physical Exam 2 Vital Signs: Vital Signs: Last Vital Signs Temp 98.8 F 08/24/24 20:02 Pulse 85 08/24/24 20:02 Resp 17 08/24/24 20:32 BP 124/87 08/24/24 20:02 Pulse Ox 98 08/24/24 20:02 O2 Del Method Room Air 08/24/24 20:02 BMI result Body Mass Index 40.7 Const: Other: Alert, appears older than stated age Orientation/consciousness: patient oriented x3 Chest: Other: Pain with palpation of left anterior chest wall no deformity noted Resp: Effort & Inspection: normal respiratory effort Cardio: Other: Normal peripheral perfusion Skin: Other: Warm dry no rash Neuro: General: patient oriented x3, gait normal, no focal motor deficits and CN's II-XI intact bilaterally Psych: Other: Hostile Medications Administered Discontinued Medications Generic Name Dose Route Start Last Admin Trade Name Nilesh PRN Reason Stop Dose Admin Ketorolac Tromethamine 15 mg 08/24/24 20:17 08/24/24 20:32 Ketorolac Tromethamine 15 Mg/Ml Vial IVPUSH 08/24/24 20:18 15 mg ONCE ONE Administration Morphine Sulfate 4 mg 08/24/24 20:17 08/24/24 20:32 Morphine Sulfate 4 Mg/Ml Cartridge IVPUSH 08/24/24 20:18 4 mg ONCE ONE Administration Protocol Medical Decision Making Medical Decision Making [facility] Narrative: 49-year-old morbidly obese male with a history of chronic pain, lumbar disc herniation with radiculopathy, arthritis, carpal tunnel, neuropathy, COPD, KELSY, hypertension, hyperlipidemia, diabetes, coronary artery disease, STEMI, who sustained left-sided rib fractures 08/10/2024 presents with chest pain. Patient states he developed left anterior chest discomfort after his dog jumped up on him. Denies associated shortness of breath diaphoresis or nausea. Problem: Obesity, chronic pain, known coronary artery disease, known rib fractures History: Per patient I have considered the following differential diagnoses: Chest wall pain/contusion, ACS, additional rib fracture, Plan: Given there was preceding injury prior to the onset of pain, this is likely musculoskeletal. However, I am considering ACS given he has known coronary artery disease. We will obtain a chest x-ray, screening labs, cardiac enzyme and EKG. We will be giving morphine and Toradol for his discomfort. I have independently reviewed the following tests: Labs: No leukocytosis, not anemic, no electrolyte abnormality, troponin negative EKG: Normal sinus rhythm, rate 88, no ischemic changes no ectopy QTC 418 Chest x-ray:IMPRESSION: 1. No acute findings. No convincing evidence of rib fracture. Mild bibasilar subsegmental atelectasis may be due to pain limiting full inspiration. 2. Of note, mild left hydronephrosis and left perinephric fat stranding were present on 08/14/2024 exam. These findings can produce ipsilateral pleuritic chest pain due to reactive inflammation of the ipsilateral diaphragm. This document has been electronically signed by: Andrews Hidalgo MD on 08/24/2024 22:00:39 Lab Data 08/24/24 20:26 08/24/24 20:26 Labs: Lab Results 08/24/24 Range/Units 20:26 WBC 5.9 (4.8-10.8) X10*3/uL RBC 4.83 (4.60-5.80) X10*6/uL Hgb 14.0 (14.0-18.0) g/dl Hct 40.8 L (42.0-52.0) % MCV 84.5 (80.0-98.0) fL MCH 29.0 (27.0-33.0) pg MCHC 34.3 (31.0-36.0) g/dl RDW 13.0 (11.0-16.0) % Plt Count 204 (160-400) X10*3/uL MPV 9.4 (9.4-12.4) fL Immature Gran % (Auto) 0.5 H (0.0-0.4) % Neut % (Auto) 58.1 (45-73) % Lymph % (Auto) 24.8 (20-40) % [place] % (Auto) 12.8 H (2-11) % Eos % (Auto) 3.1 (0-4) % Baso % (Auto) 0.7 (0-2) % Lymph # (Auto) 1.5 (1.2-4.9) X10*3/uL [place] # (Auto) 0.8 (0.1-1.2) X10*3/uL Eos # (Auto) 0.2 (0.0-0.4) X10*3/uL Baso # (Auto) 0.0 (0.0-0.2) X10*3/uL Abs Immat Gran (auto) 0.03 (0.00-0.03) X10*3/uL Absolute Neuts (auto) 3.4 (2.0-8.3) x10*3/uL Absolute Nucleated RBC 0.000 (0.0-0.012) X10*3/uL Nucleated RBC % (auto) 0.0 (0.0-0.2) /100WBC Sodium 138 (135-145) mmol/L Potassium 3.8 (3.3-5.1) mmol/L Chloride 115 H (96-108) mmol/L Carbon Dioxide 19 L (22-29) mmol/L Anion Gap 8 L (12-20) BUN 14 (9-16) mg/dL Creatinine 0.91 (0.5-1.4) mg/dL Estim Creat Clear Calc 141.8 Estimated GFR > 60 Random Glucose 126 H (60-115) mg/dL Calcium 9.1 (8.4-10.2) mg/dL Magnesium 1.9 (1.6-2.6) mg/dL Total Bilirubin 0.3 (0.0-1.0) mg/dL AST 30 (5-37) U/L ALT 28 (0-40) U/L Alkaline Phosphatase 123 H (39-117) U/L Troponin I High Sens < 2.7 (<3.5-35.0) ng/L Total Protein 7.3 (6.5-8.0) g/dL Albumin 3.9 (3.5-5.0) g/dL Discharge Plan Discharge Clinical Impression: Anterior chest wall pain Patient Disposition: Home, Self-Care Instructions: Chest Wall Pain (ED) Additional Instructions: All of your screening labs including a cardiac enzymes were normal. There were no concerning changes on your EKG and the chest x-ray is clear. To note there was no evidence of any rib fracture. You can follow up with your primary care provider. Prescriptions: No Action triamcinolone acetonide 0.1 % cream 1 appl topical DAILY 30 Days Qty: 80 1RF bupropion HCl 150 mg tablet extended release 24 hr 150 mg PO QAM 90 Days Qty: 90 2RF bupropion HCl 300 mg tablet extended release 24 hr 300 mg PO DAILY 90 Days Qty: 90 2RF aripiprazole 5 mg tablet 5 mg PO DAILY 90 Days Qty: 90 2RF omeprazole 20 mg capsule,delayed release(DR/EC) 20 mg PO BID 90 Days Qty: 180 3RF tamsulosin 0.4 mg capsule 0.4 mg PO DAILY 90 Days Qty: 90 2RF aspirin [Adult Low Dose Aspirin] 81 mg tablet,delayed release (DR/EC) 81 mg PO DAILY 90 Days Qty: 90 2RF Anoro Ellipta 62.5-25 mcg/actuation blister with device 1 inh inhalation Q24H 30 Days Qty: 60 2RF isosorbide mononitrate 30 mg tablet extended release 24 hr 30 mg PO DAILY 90 Days Qty: 90 3RF cholecalciferol (vitamin D3) 25 mcg (1,000 unit) capsule 25 mcg PO DAILY 90 Days Qty: 90 0RF metformin 500 mg tablet 500 mg PO BID 90 Days Qty: 180 0RF loratadine 10 mg tablet 10 mg PO DAILY 90 Days Qty: 90 0RF cyanocobalamin (vitamin B-12) 1,000 mcg tablet 1,000 mcg PO DAILY 90 Days Qty: 90 0RF carvedilol 25 mg tablet 25 mg PO Q12H 90 Days Qty: 180 0RF Rx Instructions: must administer with a meal/food amlodipine 10 mg tablet 10 mg PO DAILY 90 Days Qty: 90 0RF indomethacin 25 mg capsule 25 mg PO BID 30 Days Qty: 60 0RF Rx Instructions: administer with food or milk duloxetine 30 mg capsule,delayed release(DR/EC) 30 mg PO DAILY 90 Days Qty: 90 0RF pramipexole 0.5 mg tablet 0.5 mg PO BEDTIME 30 Days Qty: 30 0RF gabapentin 300 mg capsule 300 mg PO TID 30 Days Qty: 90 0RF prednisone 20 mg tablet 20 mg PO DAILY 7 Days Qty: 7 0RF tamsulosin 0.4 mg capsule 0.4 mg PO DAILY Qty: 7 0RF oxycodone 5 mg tablet 5 mg PO BID PRN (Reason: pain) Qty: 7 0RF Rx Instructions: Partial Fill upon patient request. ibuprofen 800 mg tablet 800 mg PO Q8H PRN (Reason: pain) Qty: 30 0RF escitalopram oxalate 5 mg tablet 5 mg PO DAILY amitriptyline 25 mg tablet 50 mg PO BEDTIME topiramate 100 mg tablet 300 mg PO DAILY Rx Instructions: Take 1 tab in the morning and 2 at bedtime. hydroxyzine HCl 25 mg tablet 25 mg PO TID rosuvastatin 40 mg tablet 40 mg PO DAILY 90 Days Qty: 90 3RF Combivent Respimat 20-100 mcg/actuation mist 1 puff inhalation Q6H PRN clotrimazole 1 % cream 1 appl topical BID 14 Days Qty: 45 1RF Print Language: Czech
[2024-08-24 20:44] LABS: Alanine Aminotransferase 28 U/L (0-40); Albumin Level 3.9 g/dL (3.5-5.0); Alkaline Phosphatase 123 U/L (39-117); Anion Gap 8 (12-20); Aspartate Amino Transferase 30 U/L (5-37); Bilirubin Total 0.3 mg/dL (0.0-1.0); Blood Urea Nitrogen 14 mg/dL (9-16); Calcium 9.1 mg/dL (8.4-10.2); Carbon Dioxide 19 mmol/L (22-29); Chloride 115 mmol/L (96-108); Creatinine Clr Calc Pharmacy 141.8; Estimated Glomerular Filt Rate > 60; Glucose Random 126 mg/dL (60-115); Magnesium 1.9 mg/dL (1.6-2.6); Potassium 3.8 mmol/L (3.3-5.1); Sodium 138 mmol/L (135-145); Total Protein 7.3 g/dL (6.5-8.0)
[2024-08-24 20:59] LABS: Troponin-I High Sensitivity < 2.7 ng/L (<3.5-35.0)
--- NOTE | 2024-08-24 21:37 | PC.NURSE ---
pt biba from home, a&ox4, respirations even and unlabored. pt reports he has been sick and has been increased coughing which caused him to break ribs. pt reports a dog jumped on him today which caused increased in chest pain. pt reports pain worsens with coughing. pt denies n/v/d and sob. 20G placed in left forearm, labs obtained, medicated per sep.
[2024-08-24 21:57] VITALS: PULSE 81
[2024-08-24 22:43] VITALS: BP 105/53; PULSE 83; RESP 20; TEMP 36.8; O2SAT 96
[2024-08-24 22:56] VITALS: BP 105/53; PULSE 83; RESP 20; TEMP 36.8; O2SAT 96
== END 2024-08-24 22:57 | disposition home or self-care (01) ==
PROVIDERS: Physician Assistant Medical; Emergency Provider Emergency Medicine Emergency Medical Services; PCP Family Medicine
DX: R07.89 Other chest pain (principal); R07.81 Pleurodynia; J44.9 Chronic obstructive pulmonary disease, unspecified; I25.10 Atherosclerotic heart disease of native coronary artery without angina pectoris; Z79.899 Other long term (current) drug therapy
CPT/HCPCS: 36415; 71046; 80053; 83735; 84484; 85025; 93005; 96374; 96375; 99284; 99285; J1885; J2270

== ENCOUNTER → 2024-08-24 20:06 | Outpatient (BNV) | payer OTHER, SELFPAY | PROVIDERS: Emergency Provider Emergency Medicine Emergency Medical Services; PCP Family Medicine; Visit Provider Internal Medicine | DX: R07.9 Chest pain, unspecified (principal) | CPT/HCPCS: 93010 ==

== ENCOUNTER → 2024-08-24 20:13 | Outpatient (BNV) | payer OTHER, SELFPAY | PROVIDERS: Emergency Provider Emergency Medicine Emergency Medical Services; PCP Family Medicine; Visit Provider Radiology Diagnostic Radiology | DX: R07.9 Chest pain, unspecified (principal) | CPT/HCPCS: 71046 ==

== ENCOUNTER 2024-08-28 16:07 | Emergency (ER) | payer OTHER, SELFPAY ==
--- NOTE | ~2024-08-28 | CT_ITS ---
CLINICAL HISTORY: L flank pain CT abdomen and pelvis without contrast Comparison: CT/SR - CT ABDOMEN PELVIS WO IV CON - 08/14/24 15:28 EST Findings: The lung bases are clear. Areas of scarring and tiny nodules at the lung bases, unchanged from prior. Heart size is normal. Liver, gallbladder, adrenal glands, spleen, pancreas are unremarkable. Right kidney is normal in size and there is no right-sided hydronephrosis, however there is a 2mm stone in the distal right ureter. There is mild left hydronephrosis and slightly asymmetric left perinephric stranding. There is possibly a faintly seen 1 mm tiny stone at the left ureterovesical junction. Urinary bladder is decompressed. No bowel obstruction, pneumoperitoneum, or pneumatosis. Normal appendix. No ascites. No acute fracture. IMPRESSION: 1. Persistent mild left hydronephrosis and left perinephric stranding, similar to prior. Possible faintly seen 1 mm stone at the left ureterovesical junction. 2. 2 mm stone in the distal right ureter without right-sided hydronephrosis. This document has been electronically signed by: David Claudio MD on 08/28/2024 18:42:01
[2024-08-28 16:18] VITALS: BP 139/93; BP 162/95; PULSE 87; PULSE 89; RESP 18; TEMP 36.8; O2SAT 98; BMI 41.7
--- NOTE | 2024-08-28 16:45 | ED_ITS ---
HPI - Abdominal Pain General Chief Complaint: Back Pain/Injury Stated Complaint: LLQ pain, hx of kidney stones Time Seen by Provider: 08/28/24 16:11 Source: patient, EMS and old records reviewed Mode of arrival: EMS Limitations: no limitations History of Present Illness ED Provider: KELVIN JULIO narrative: 49 yo male with PMH of COPD, KELSY on CPAP, HTN, HLD, DM, CAD s/p PCI and stent to LAD, renal colic but no prior interventions he comes in with abrupt onset L flank pain at 640am was able to urinate last time he did was 1pm. He notes then n/v this AM and when that happened he called for help. No fevers, his abdomen does not hurt to touch. He thinks he has a stone. EMS gave toradol/zofran and his pain/nausea are gone. MD elicited complaint: flank pain Pertinent past history: kidney stones Onset (ago): hour(s) (almost 12 hours ago) Pain Consistency: now resolved Location: L flank Severity: moderate Quality: stabbing Radiation: LLQ Migration to: LLQ Exacerbating factors: nothing Relieving factors: nothing Context: history of similar episodes Associated symptoms: nausea and vomiting Treatments prior to arrival: NSAIDs Related Data Home Medications ?Medication ?Instructions ?Recorded ?Confirmed amitriptyline 25 mg tablet 50 mg PO BEDTIME 01/01/23 07/06/24 escitalopram oxalate 5 mg tablet 5 mg PO DAILY 07/08/23 07/06/24 hydroxyzine HCl 25 mg tablet 25 mg PO TID 10/07/23 07/06/24 topiramate 100 mg tablet 300 mg PO DAILY 10/07/23 07/06/24 ipratropium 20 mcg-albuterol 100 1 puff inhalation Q6H PRN 10/27/23 07/06/24 mcg/actuation mist for inhalation (Combivent Respimat) Previous Rx's ?Medication ?Instructions ?Recorded triamcinolone acetonide 0.1 % 1 appl topical DAILY 30 days #80 04/21/22 topical cream grams bupropion HCl 150 mg 24 hr tablet, 150 mg PO QAM 90 days #90 tabs 05/06/22 extended release aripiprazole 5 mg tablet 5 mg PO DAILY 90 days #90 tabs 05/11/22 bupropion HCl 300 mg 24 hr tablet, 300 mg PO DAILY 90 days #90 tabs 05/11/22 extended release omeprazole 20 mg capsule,delayed 20 mg PO BID 90 days #180 caps 07/23/23 release tamsulosin 0.4 mg capsule 0.4 mg PO DAILY 90 days #90 caps 09/23/23 rosuvastatin 40 mg tablet 40 mg PO DAILY 90 days #90 tabs 10/07/23 aspirin 81 mg tablet,delayed 81 mg PO DAILY 90 days #90 tabs 10/21/23 release (Adult Low Dose Aspirin) umeclidinium 62.5 mcg-vilanterol 1 inh inhalation Q24H 30 days #60 12/22/23 25 mcg/actuation powdr for ea inhalation (Anoro Ellipta) isosorbide mononitrate 30 mg 30 mg PO DAILY 90 days #90 tabs 04/25/24 tablet,extended release 24 hr cholecalciferol (vitamin D3) 25 25 mcg PO DAILY 90 days #90 caps 05/31/24 mcg (1,000 unit) capsule metformin 500 mg tablet 500 mg PO BID 90 days #180 tabs 06/01/24 loratadine 10 mg tablet 10 mg PO DAILY 90 days #90 tabs 06/30/24 clotrimazole 1 % topical cream 1 appl topical BID 2 weeks #45 07/06/24 grams carvedilol 25 mg tablet 25 mg PO Q12H 90 days #180 tabs 07/08/24 cyanocobalamin (vitamin B-12) 1,000 mcg PO DAILY 90 days #90 tabs 07/08/24 1,000 mcg tablet prednisone 20 mg tablet 20 mg PO DAILY 7 days #7 tabs 07/13/24 tamsulosin 0.4 mg capsule 0.4 mg PO DAILY #7 caps 07/13/24 amlodipine 10 mg tablet 10 mg PO DAILY 90 days #90 tabs 07/14/24 duloxetine 30 mg capsule,delayed 30 mg PO DAILY 90 days #90 caps 08/04/24 release indomethacin 25 mg capsule 25 mg PO BID 30 days #60 caps 08/04/24 ibuprofen 800 mg tablet 800 mg PO Q8H PRN pain #30 tabs 08/11/24 oxycodone 5 mg tablet 5 mg PO BID PRN pain #7 tabs 08/11/24 pramipexole 0.5 mg tablet 0.5 mg PO BEDTIME 30 days #30 tabs 08/14/24 gabapentin 300 mg capsule 300 mg PO TID 30 days #90 caps 08/18/24 morphine 15 mg immediate release 15 mg PO Q6H PRN pain #12 tabs 08/28/24 tablet ondansetron 4 mg disintegrating 4 mg PO Q8H PRN nausea and 08/28/24 tablet vomiting #20 tabs Allergies Allergy/AdvReac Type Severity Reaction Status Date / Time erythromycin base Allergy Mild Confusion Verified 08/28/24 16:21 clonidine AdvReac Severe Vomiting Verified 08/28/24 16:21 Review of Systems Review of Systems Constitutional : No Weight loss, No Fever, No Chills ENT/Mouth : No sore throat, No Rhinorrhea Eyes: No Swelling, No Redness Cardiovascular : No Chest Pain, No SOB, NoEdema Respiratory : No Cough, No Sputum, No Wheezing Gastrointestinal : Positive Nausea, Positive Vomiting, no Diarrhea, positive flank Pain, No Hematochezia, No Melena Genitourinary : No Dysuria, No Urinary Frequency, No Hematuria, No Urgency Musculoskeletal : No joint pain, No Myalgias, No Joint Swelling Skin : No Skin Lesions, No rash Neuro : No Weakness, No Numbness, No Dizziness, No Headache All other systems reviewed and are negative. [facility] Past Medical History Attestation statement: The following information was validated with the patient. Source: old records reviewed Medical History Adult general medical exam Laboratory exam ordered as part of routine general medical examination Imbalance Left-sided chest wall pain Dizziness Fatigue Unsteady gait Yeast infection of the skin Cough Abnormal lung sounds Abnormal CT lung screening Headache Puncture wound of scalp Left knee pain Sacroiliitis Osteoarthritis of knee Infection of skin Exposure to potential infection Urinary hesitancy Screening for prostate cancer Screening for colon cancer Difficulty swallowing Decreased visual acuity Low vitamin B12 level Obesity (BMI 30-39.9) Morbid obesity Elevated fasting glucose Chest discomfort COPD (chronic obstructive pulmonary disease) KELSY on CPAP Torn rotator cuff Diabetes High cholesterol Hypertension Surgical History Stented coronary artery History of carpal tunnel surgery Family History Family History Other Mental health disorder Substance abuse Social History Social History Housing: House Alcohol intake: never Patient Tobacco Use Status: Former Tobacco user Smoked in Last 30 Days: No e-Cigarette/Vaping Use: Never Used Second Hand Smoke Exposure: No Use of substances other than those prescribed or required for medical reasons: No Advance Directives: No Advance Directives Information Provided: Yes service: No Current occupational status: unemployed Current occupational exposures/hazards: No Cognitive needs: No Hearing needs: No Vision needs: Yes Physical Exam ED Vital Signs: Vital Signs - 24 hr 08/28/24 16:18 08/28/24 17:32 Temperature 98.2 F 98.2 F Pulse Rate 87 98 Respiratory Rate 18 18 Blood Pressure 139/93 H 136/82 Pulse Oximetry 98 98 Oxygen Delivery Method Room Air Room Air BMI result Body Mass Index 41.7 Appearance: Alert. Oriented X3. No acute distress. Eyes: Pupils equal, round and reactive to light. ENT: Pharynx normal. Neck: Normal inspection. Neck supple. CVS: Normal heart rate and rhythm. Pulses normal. Respiratory: No respiratory distress. Breath sounds normal. Abdomen: Soft and nontender. Skin: Skin warm and dry. Normal skin color. Normal skin turgor. Extremities: No lower extremity edema. No calf ttp Neuro: Oriented X 3. No motor deficit. No sensory deficit. CN2-12 intact Medical Decision Making Medical Decision Making [facility] Narrative: 49 yo male with PMH of COPD, KELSY on CPAP, HTN, HLD, DM, CAD s/p PCI and stent to LAD, renal colic abrupt flank pain this AM but benign abdominal exam at this time will need basic labs, UA, CT scan PRN IV morphine Differential Diagnosis Differential Diagnoses: The differential diagnosis associated with the presentation includes renal colic, MSK strain, constipation no abdominal pain to suggest acute infection, SBO, ruptured AAA Admission/Observation Consideration of admission/observation: Escalation of care including admission/observation considered tolerating PO stable for DC feels better Lab Data [facility] Lab Attestation statement: I reviewed the patient's lab results. small bump in Creatinine - baseline 1.3 08/28/24 16:48 08/28/24 16:48 Labs: Lab Results 08/28/24 08/28/24 Range/Units 16:48 17:28 WBC 7.5 (4.8-10.8) X10*3/uL RBC 4.87 (4.60-5.80) X10*6/uL Hgb 13.8 L (14.0-18.0) g/dl Hct 41.2 L (42.0-52.0) % MCV 84.6 (80.0-98.0) fL MCH 28.3 (27.0-33.0) pg MCHC 33.5 (31.0-36.0) g/dl RDW 13.1 (11.0-16.0) % Plt Count 197 (160-400) X10*3/uL MPV 9.5 (9.4-12.4) fL Immature Gran % (Auto) 0.7 H (0.0-0.4) % Neut % (Auto) 70.4 (45-73) % Lymph % (Auto) 17.9 L (20-40) % [place] % (Auto) 8.7 (2-11) % Eos % (Auto) 1.9 (0-4) % Baso % (Auto) 0.4 (0-2) % Lymph # (Auto) 1.3 (1.2-4.9) X10*3/uL [place] # (Auto) 0.7 (0.1-1.2) X10*3/uL Eos # (Auto) 0.1 (0.0-0.4) X10*3/uL Baso # (Auto) 0.0 (0.0-0.2) X10*3/uL Abs Immat Gran (auto) 0.05 H (0.00-0.03) X10*3/uL Absolute Neuts (auto) 5.3 (2.0-8.3) x10*3/uL Absolute Nucleated RBC 0.000 (0.0-0.012) X10*3/uL Nucleated RBC % (auto) 0.0 (0.0-0.2) /100WBC Sodium 139 (135-145) mmol/L Potassium 4.1 (3.3-5.1) mmol/L Chloride 111 H (96-108) mmol/L Carbon Dioxide 21 L (22-29) mmol/L Anion Gap 11 L (12-20) BUN 15 (9-16) mg/dL Creatinine 1.55 H (0.5-1.4) mg/dL Estim Creat Clear Calc 84.3 Estimated GFR 48 Random Glucose 169 H (60-115) mg/dL Calcium 9.2 (8.4-10.2) mg/dL Magnesium 1.9 (1.6-2.6) mg/dL Total Bilirubin 0.3 (0.0-1.0) mg/dL Direct Bilirubin 0.1 (0.0-0.5) mg/dL AST 36 (5-37) U/L ALT 26 (0-40) U/L Alkaline Phosphatase 119 H (39-117) U/L Total Protein 6.9 (6.5-8.0) g/dL Albumin 3.7 (3.5-5.0) g/dL Lipase 38 (8-78) U/L Urine Color Yellow Urine Appearance Clear Urine pH 7.5 (5.0-9.0) Ur Specific [place] <= 1.005 (1.005-1.025) Urine Protein Negative (Neg-Trace) mg/dL Urine Glucose (UA) Negative (Negative) mg/dL Urine Ketones Negative (Negative) mg/dL Urine Blood Negative (Negative) Urine Nitrite Negative (Negative) Ur Leukocyte Esterase Negative (Negative) Independent Interpretation I performed an independent interpretation of an: CT Scan (ureteral stones) Radiology Impression Discussion of test interpretation with radiology: I have reviewed the radiologist's reading. Independent Historian Clinical information obtained from an independent historian. History obtained from or confirmed by: EMS External Record Review External record reviewed: Inpatient record and Outpatient record Medications Administered Generic Name Dose Route Start Last Admin Trade Name Freq PRN Reason Stop Dose Admin Sodium Chloride 500 mls @ 500 mls/hr 08/28/24 18:02 08/28/24 18:30 Ns IV 08/28/24 19:01 500 mls/hr .Q1H ONE Administration Discharge Plan Discharge Clinical Impression: Renal colic Patient Disposition: Home, Self-Care Instructions: Renal Colic (ED) Additional Instructions: return for fevers, vomiting, unable to eat or drink, severe pain or any other concerns follow up with urology REPEAT YOUR LABS WITH YOUR DOCTOR TOMORROW - KIDNEY FUNCTION, STAY HYDRATED Prescriptions: New morphine 15 mg tablet 15 mg PO Q6H PRN (Reason: pain) Qty: 12 0RF Rx Instructions: partial fill okay; Partial Fill upon patient request. ondansetron 4 mg tablet,disintegrating 4 mg PO Q8H PRN (Reason: nausea and vomiting) Qty: 20 0RF No Action triamcinolone acetonide 0.1 % cream 1 appl topical DAILY 30 Days Qty: 80 1RF bupropion HCl 150 mg tablet extended release 24 hr 150 mg PO QAM 90 Days Qty: 90 2RF bupropion HCl 300 mg tablet extended release 24 hr 300 mg PO DAILY 90 Days Qty: 90 2RF aripiprazole 5 mg tablet 5 mg PO DAILY 90 Days Qty: 90 2RF omeprazole 20 mg capsule,delayed release(DR/EC) 20 mg PO BID 90 Days Qty: 180 3RF tamsulosin 0.4 mg capsule 0.4 mg PO DAILY 90 Days Qty: 90 2RF aspirin [Adult Low Dose Aspirin] 81 mg tablet,delayed release (DR/EC) 81 mg PO DAILY 90 Days Qty: 90 2RF Anoro Ellipta 62.5-25 mcg/actuation blister with device 1 inh inhalation Q24H 30 Days Qty: 60 2RF isosorbide mononitrate 30 mg tablet extended release 24 hr 30 mg PO DAILY 90 Days Qty: 90 3RF cholecalciferol (vitamin D3) 25 mcg (1,000 unit) capsule 25 mcg PO DAILY 90 Days Qty: 90 0RF metformin 500 mg tablet 500 mg PO BID 90 Days Qty: 180 0RF loratadine 10 mg tablet 10 mg PO DAILY 90 Days Qty: 90 0RF cyanocobalamin (vitamin B-12) 1,000 mcg tablet 1,000 mcg PO DAILY 90 Days Qty: 90 0RF carvedilol 25 mg tablet 25 mg PO Q12H 90 Days Qty: 180 0RF Rx Instructions: must administer with a meal/food amlodipine 10 mg tablet 10 mg PO DAILY 90 Days Qty: 90 0RF indomethacin 25 mg capsule 25 mg PO BID 30 Days Qty: 60 0RF Rx Instructions: administer with food or milk duloxetine 30 mg capsule,delayed release(DR/EC) 30 mg PO DAILY 90 Days Qty: 90 0RF pramipexole 0.5 mg tablet 0.5 mg PO BEDTIME 30 Days Qty: 30 0RF gabapentin 300 mg capsule 300 mg PO TID 30 Days Qty: 90 0RF prednisone 20 mg tablet 20 mg PO DAILY 7 Days Qty: 7 0RF tamsulosin 0.4 mg capsule 0.4 mg PO DAILY Qty: 7 0RF oxycodone 5 mg tablet 5 mg PO BID PRN (Reason: pain) Qty: 7 0RF Rx Instructions: Partial Fill upon patient request. ibuprofen 800 mg tablet 800 mg PO Q8H PRN (Reason: pain) Qty: 30 0RF escitalopram oxalate 5 mg tablet 5 mg PO DAILY amitriptyline 25 mg tablet 50 mg PO BEDTIME topiramate 100 mg tablet 300 mg PO DAILY Rx Instructions: Take 1 tab in the morning and 2 at bedtime. hydroxyzine HCl 25 mg tablet 25 mg PO TID rosuvastatin 40 mg tablet 40 mg PO DAILY 90 Days Qty: 90 3RF Combivent Respimat 20-100 mcg/actuation mist 1 puff inhalation Q6H PRN clotrimazole 1 % cream 1 appl topical BID 14 Days Qty: 45 1RF Print Language: Congolese
[2024-08-28 16:52] LABS: MANUAL DIFF FLAG NO
[2024-08-28 16:53] LABS: Basophils Percent Auto 0.4 % (0-2); Eosinophils Absolute Auto 0.1 X10*3/uL (0.0-0.4); Eosinophils Percent Auto 1.9 % (0-4); Hematocrit 41.2 % (42.0-52.0); Hemoglobin 13.8 g/dl (14.0-18.0); Imm Gran Abs Auto 0.05 X10*3/uL (0.00-0.03); Imm Gran Pct Auto 0.7 % (0.0-0.4); Lymphocytes Absolute Auto 1.3 X10*3/uL (1.2-4.9); Lymphocytes Percent Auto 17.9 % (20-40); Mean Corpuscular HGB Conc 33.5 g/dl (31.0-36.0); Mean Corpuscular Hemoglobin 28.3 pg (27.0-33.0); Mean Corpuscular Volume 84.6 fL (80.0-98.0); Mean Platelet Volume 9.5 fL (9.4-12.4); Monocytes Absolute Auto 0.7 X10*3/uL (0.1-1.2); Monocytes Percent Auto 8.7 % (2-11); Neutrophils Absolute Auto 5.3 x10*3/uL (2.0-8.3); Neutrophils Percent Auto 70.4 % (45-73); Platelet Count 197 X10*3/uL (160-400); Red Blood Count 4.87 X10*6/uL (4.60-5.80); Red Cell Distribution Width 13.1 % (11.0-16.0); White Blood Count 7.5 X10*3/uL (4.8-10.8)
[2024-08-28 17:32] VITALS: BP 136/82; PULSE 98; RESP 18; TEMP 36.8; O2SAT 98
[2024-08-28 17:37] LABS: Alanine Aminotransferase 26 U/L (0-40); Albumin Level 3.7 g/dL (3.5-5.0); Anion Gap 11 (12-20); Aspartate Amino Transferase 36 U/L (5-37); Bilirubin Direct 0.1 mg/dL (0.0-0.5); Bilirubin Total 0.3 mg/dL (0.0-1.0); Blood Urea Nitrogen 15 mg/dL (9-16); Calcium 9.2 mg/dL (8.4-10.2); Carbon Dioxide 21 mmol/L (22-29); Chloride 111 mmol/L (96-108); Creatinine Clr Calc Pharmacy 84.3; Estimated Glomerular Filt Rate 48; Glucose Random 169 mg/dL (60-115); Lipase 38 U/L (8-78); Magnesium 1.9 mg/dL (1.6-2.6); Potassium 4.1 mmol/L (3.3-5.1); Sodium 139 mmol/L (135-145); Total Protein 6.9 g/dL (6.5-8.0)
[2024-08-28 17:52] LABS: Appearance Urine Clear; Color Urine Yellow; Glucose Urine UA Negative (Negative); Leukocyte Esterase Urine Negative (Negative); Nitrite Urine Negative (Negative); PH 7.5 (5.0-9.0); Specific Gravity - Urine <= 1.005 (1.005-1.025); Urine Blood Negative (Negative); Urine Ketones Negative (Negative); Urine Protein Negative (Neg-Trace)
[2024-08-28 17:54] LABS: Alkaline Phosphatase 119 U/L (39-117)
[2024-08-28] MEDS: 0.9 % Sodium Chloride 500 ML IV (18:30)
[2024-08-28 19:45] VITALS: BP 144/96; PULSE 80; RESP 16; TEMP 36.5; O2SAT 96
[2024-08-28 19:54] VITALS: BP 144/96; PULSE 80; RESP 16; TEMP 36.5; O2SAT 96
== END 2024-08-28 19:54 | disposition home or self-care (01) ==
PROVIDERS: Emergency Provider Emergency Medicine; PCP Family Medicine
DX: N23 Unspecified renal colic (principal); I25.10 Atherosclerotic heart disease of native coronary artery without angina pectoris; I10 Essential (primary) hypertension; R11.2 Nausea with vomiting, unspecified; Z87.891 Personal history of nicotine dependence; Z87.442 Personal history of urinary calculi; Z79.899 Other long term (current) drug therapy
CPT/HCPCS: 36415; 74176; 80048; 80076; 81003; 83690; 83735; 85025; 96360; 99284

== ENCOUNTER → 2024-08-28 16:25 | Outpatient (BNV) | payer OTHER, SELFPAY | PROVIDERS: Emergency Provider Emergency Medicine; PCP Family Medicine; Visit Provider Radiology Diagnostic Radiology | DX: N20.1 Calculus of ureter (principal) | CPT/HCPCS: 74176 ==

== ENCOUNTER 2024-08-30 06:08 | Outpatient (REF) | payer OTHER, SELFPAY ==
--- NOTE | ~2024-08-30 | FL_ITS ---
EXAMINATION: FL GUIDANCE ONLY HISTORY: M53.3 - Sacrococcygeal disorders, not elsewhere classified COMPARISON: None available. TECHNIQUE: Fluoroscopy time: 0.2 minutes. Cumulative Dose: 5.49 mGy. DAP: 0.0813 mGym2 Images: 2. FINDINGS: Images demonstrate needles and contrast material in the regions of the bilateral sacroiliac joints. FL/FL guidance in treatment room IMPRESSION: Fluoroscopy during procedure. Please see procedure report for additional information. Electronically signed by: Arnoldo Acevedo MD 08/30/2024 12:28 PM KARLEY LAZO
--- OUTSIDE RECORDS SUMMARY | 2024-08-30 06:10 | XMS_ITS | Data Portability ---
Author Organization [place] - [facility], Allergy Address [address] [place] [id number] Assessment No assessment recorded. Plan of Treatment Reminders Order Date Submit Date Provider Last Modified By Organization Details Last Modified Time Details Appointments None recorded. Lab None recorded. 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 2023 024 [id number] 2 [facility] Otolaryngolog y, [address], [place], [address], 4 12:21:10 Procedures None recorded. Surgeries None recorded. Imaging None recorded. Medication Orders None recorded. Patient TargetsNo targets recorded. Patient InstructionsNo instructions recorded. 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 Procedures Surgical History Date Name Laterality Status Provider Name and Address Organization Details Recorded Time 01/20/2024 FFL_RE completed BERNARDA BELL MD 100 [facility] 100, [place], [address], [facility] 01/20/2024 09:14:05 Imaging Results Imaging Date Name Status LastModified by Organiz ation Details LastModified Time 10/01/2023 MRI, brain, w/o contrast [facility] Information not available 01/22/2024 09:27:19 Procedure Notes [...] Updated DateTime 01/20/2024 182.88 cm 35.3 kg/m2 514799.02 g Kat Major [place] - [facility] 01/20/2024 09:04:31 Social History None recorded. Functional Status None recorded. Mental Status None recorded. Family History Nothing Reported. Medical History No medical history recorded. Past Encounters Encounter ID Performer Location Encounter Start Date Encounter Closed Date Diagnosis/Indication Diagnosis SNOMED-CT Code Diagnosis ICD10 Code Diagnosis Note [id number] BERNARDA BELL MD [facility] [address] [phone] 01/20/2024 08:46:56 01/20/2024 09:20:43 Dysphagia 05850843 R13.10 Laryngosco py was normal. Mild. Recommend small bites and washing down with fluid and to call if it worsens. 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 Quit smoking 3 years ago. BERNARDA EBLL MD [address] [place] [address], [phone], [facility] - [facility] 01/20/2024 09:23:32
--- OUTSIDE RECORDS SUMMARY | 2024-08-30 06:10 | XMS_ITS | Clinical Summary ---
Author Organization 175 [facility] Address [address] [place] [address] Phone Care Team Providers Care Tool Rental Technician Name Role Phone Leland Trujillo MD Primary [...] PM EST Office Visit Orthopedic Surgery - [place] [address] [phone] Joe Diaz DPM 175 [facility] [address] [place] [address] Health Maintenance Due Date Last Done Comments [...] LES * Hepatitis C Screening (09/01/2020) Pathologist [facility] Hepatitis C Screening abstracted Historical Provider [facility] MAINTE[facility] E from Last 3 Months or Most Recently Relevant to Health Maintenance Care Teams Tool Rental Technician Relationship Specialty Start Date End Date Leland Trujillo MD [address] [place] [address] Dr Michelle [place] PCP - General 05/09/22
== END 2024-08-30 06:09 | disposition home or self-care (01) ==
LOC: CF 06:08
PROVIDERS: Visit Provider Anesthesiology
DX: M53.3 Sacrococcygeal disorders, not elsewhere classified (principal)
CPT/HCPCS: 27096; J2003; J2795; Q9967

== ENCOUNTER 2024-08-30 06:57 | Outpatient (AMB) | payer OTHER, SELFPAY ==
--- OUTSIDE RECORDS SUMMARY | 2024-08-30 06:58 | XMS_ITS | Clinical Summary ---
Author Organization 175 [facility] Address [address] [place] [address] Phone Care Team Providers Care Netting Weaver Name Role Phone Leland Trujillo MD Primary [...] PM EST Office Visit Orthopedic Surgery - [place] [address] [phone] Joe Diaz DPM [address] [facility] 250 [place] [address] Health Maintenance Due Date Last Done Comments [...] LES * Hepatitis C Screening (09/01/2020) Pathologist [facility] Hepatitis C Screening abstracted Historical Provider [facility] MAINTE[facility] E from Last 3 Months or Most Recently Relevant to Health Maintenance Care Teams Netting Weaver Relationship Specialty Start Date End Date Leland Trujillo MD [address] [place] [address] Dr Michelle [place] PCP - General 05/09/22
[2024-08-30 07:22] VITALS: BP 108/80; PULSE 100; RESP 16; O2SAT 96
--- NOTE | 2024-08-30 07:22 | MHC.OFFVIS ---
Vital Signs 08/30/24 07:22 08/30/24 08:18 BP 108/80 120/70 Blood Pressure Location Lt brachial Lt brachial Position Sitting Sitting Respiration 16 16 Pulse 100 70 Pulse Source Pulse Oximeter Pulse Oximeter Pulse Oximetry (%) 96 98 Oxygen Delivery Method Room Air Room Air Intake Visit Reasons: BILATERAL DIAGNOSTIC SIJ INJECTIONS Distribution Center Supervisor Required: No Allergies erythromycin base Allergy (Mild, Verified 08/30/24 07:23) Confusion clonidine Adverse Reaction (Severe, Verified 08/30/24 07:23) Vomiting Medication List - Last Reconciled 08/30/24 by Clarice Black LPN amitriptyline 50 mg PO BEDTIME amlodipine 10 mg PO DAILY 90 days aripiprazole 5 mg PO DAILY 90 days aspirin (Adult Low Dose Aspirin) 81 mg PO DAILY 90 days bupropion HCl XL 150 mg PO QAM 90 days bupropion HCl XL 300 mg PO DAILY 90 days carvedilol 25 mg PO Q12H 90 days cholecalciferol (vitamin D3) 25 mcg PO DAILY 90 days clotrimazole 1% 1 appl topical BID 2 weeks cyanocobalamin (vitamin B-12) 1,000 mcg PO DAILY 90 days duloxetine 30 mg PO DAILY 90 days escitalopram oxalate 5 mg PO DAILY gabapentin 300 mg PO TID 30 days hydroxyzine HCl 25 mg PO TID ibuprofen 800 mg PO Q8H PRN indomethacin 25 mg PO BID 30 days ipratropium-albuterol 20-100 mcg/actuation (Combivent Respimat) 1 puff inhalation Q6H PRN isosorbide mononitrate ER 30 mg PO DAILY 90 days loratadine 10 mg PO DAILY 90 days metformin 500 mg PO BID 90 days morphine 15 mg PO Q6H PRN omeprazole 20 mg PO BID 90 days ondansetron 4 mg PO Q8H PRN oxycodone 5 mg PO BID PRN pramipexole 0.5 mg PO BEDTIME 30 days prednisone 20 mg PO DAILY 7 days rosuvastatin 40 mg PO DAILY 90 days tamsulosin 0.4 mg PO DAILY tamsulosin 0.4 mg PO DAILY 90 days topiramate 300 mg PO DAILY triamcinolone acetonide 0.1% 1 appl topical DAILY 30 days umeclidinium-vilanterol 62.5-25 mcg/actuation (Anoro Ellipta) 1 inh inhalation Q24H 30 days PFSH Medical History Adult general medical exam Laboratory exam ordered as part of routine general medical examination Imbalance Left-sided chest wall pain Dizziness Fatigue Unsteady gait Yeast infection of the skin Cough Abnormal lung sounds Abnormal CT lung screening Headache Puncture wound of scalp Left knee pain Sacroiliitis Osteoarthritis of knee Infection of skin Exposure to potential infection Urinary hesitancy Screening for prostate cancer Screening for colon cancer Difficulty swallowing Decreased visual acuity Low vitamin B12 level Obesity (BMI 30-39.9) Morbid obesity Elevated fasting glucose Chest discomfort COPD (chronic obstructive pulmonary disease) KELSY on CPAP Torn rotator cuff Diabetes High cholesterol Hypertension Surgical History Stented coronary artery History of carpal tunnel surgery Family History Other Mental health disorder Substance abuse Social History Housing: House Alcohol intake: never Patient Tobacco Use Status: Former Tobacco user e-Cigarette/Vaping Use: Never Used Second Hand Smoke Exposure: No service: No Current occupational status: unemployed Current occupational exposures/hazards: No Cognitive needs: No Hearing needs: No Vision needs: Yes Physical Exam Vital Signs: Last Vital Signs Pulse 70 08/30/24 08:18 Resp 16 08/30/24 08:18 BP 120/70 08/30/24 08:18 Pulse Ox 98 08/30/24 08:18 Oxygen Delivery Method Room Air 08/30/24 08:18 Assessment & Plan Assessment & Plan (1) Sacroiliac joint dysfunction of both sides: Code(s): M53.3 - Sacrococcygeal disorders, not elsewhere classified Category: Medical (2) Chronic pain syndrome: Code(s): G89.4 - Chronic pain syndrome Category: Medical Plan Bilateral sacroiliac joint injection diagnostic. Informed consent was thoroughly explained to the patient before the procedure.? The patient came to the operating room.? He was positioned prone on operating table with a pillow under her abdomen.? Time-out was performed delineating correct site and side of the procedure, nature of the injection, name and date of of the patient. The lower back and upper buttocks of the patient was prepped with ChloraPrep and draped with sterile utility towels.? C-arm was brought over the operating field and picture of right sacroiliac joint was demonstrated on the screen. Tilting machine contralateral left 15 degrees from the midline the anterior portion of the silhouette of the joint was superimposed on posterior portion of the silhouette of the joint. The skin was anesthetized with mixture of ropivacaine 0.5% and lidocaine 2% one-to-one slightly medial to the silhouette of the sacroiliac joint. 22 gauge 3-1/2 inch spinal needle was inserted through the skin wheal and advanced to the sacroiliac joint. When tip of the needle entered the sacroiliac joint injection of the contrast performed delineating arthrogram. After that 4 cc of ropivacaine was injected into the joint. Upon completion of the injection needle was removed and the procedure was repeated on the left side in the mirroring fashion. After the injection the needle was removed and sterile bandades were applied Patient tolerated the procedure well. Orders: Orders FL guidance in treatment room Today M53.3 - Sacrococcygeal disorders, not elsewhere classified Coding Level of Care Code Procedure Only Diagnoses Sacroiliac joint dysfunction of both sides M53.3 Chronic pain syndrome G89.4
[2024-08-30 08:18] VITALS: BP 120/70; PULSE 70; RESP 16; O2SAT 98
== END 2024-08-30 08:20 | disposition home or self-care (01) ==
LOC: HO.PMCPRC 06:57
PROVIDERS: PCP Family Medicine; Visit Provider Anesthesiology
DX: M53.3 Sacrococcygeal disorders, not elsewhere classified (principal); G89.4 Chronic pain syndrome
CPT/HCPCS: 27096

== ENCOUNTER 2024-09-02 13:55 | Outpatient (AMB) | payer OTHER, SELFPAY ==
--- NOTE | 2024-09-02 14:03 | A.OFFVIS_ITS ---
Intake Visit Reasons: kidney stones Intake Note: Patient is present for KIDNEY STONE Urology Medication:TAMSULOSIN,VITAMIN B12 Antibiotic Allergy:ERYTHROMYCIN Blood Thinner:ASPIRIN [employer] Records Division Supervisor Required: No Allergies erythromycin base Allergy (Mild, Verified 09/07/24 08:44) Confusion clonidine Adverse Reaction (Severe, Verified 09/07/24 08:44) Vomiting HPI Comments Details: Mina is a pleasant male. Is a patient of Dr. Trujillo. He is seen for the following urologic conditions - nephrolithiasis Nephrolithiasis 1st episode Initial distal right side pain recent hospital visit Imaging - Persistent mild left hydronephrosis and left perinephric stranding, similar to prior. Possible faintly seen 1 mm stone at the left ureterovesical junction. - 2 mm stone in the distal right ureter without right-sided hydronephrosis. Three-month follow-up Encourage water with lemon diet PFSH Medical History Adult general medical exam Laboratory exam ordered as part of routine general medical examination Imbalance Left-sided chest wall pain Dizziness Fatigue Unsteady gait Yeast infection of the skin Cough Abnormal lung sounds Abnormal CT lung screening Headache Puncture wound of scalp Left knee pain Sacroiliitis Osteoarthritis of knee Infection of skin Exposure to potential infection Urinary hesitancy Screening for prostate cancer Screening for colon cancer Difficulty swallowing Decreased visual acuity Low vitamin B12 level Obesity (BMI 30-39.9) Morbid obesity Elevated fasting glucose Chest discomfort COPD (chronic obstructive pulmonary disease) KELSY on CPAP Torn rotator cuff Diabetes High cholesterol Hypertension Surgical History Stented coronary artery History of carpal tunnel surgery Family History Other Mental health disorder Substance abuse Social History Housing: House Alcohol intake: never Patient Tobacco Use Status: Former Tobacco user e-Cigarette/Vaping Use: Never Used Second Hand Smoke Exposure: No service: No Current occupational status: unemployed Current occupational exposures/hazards: No Cognitive needs: No Hearing needs: No Vision needs: Yes Review of Systems Const Denies chills and Denies fever(s) Card Reports no additional complaints and Denies syncope Resp Denies cough GI Denies abdominal pain and Denies heartburn Reports as per HPI and Denies change in libido Neuro Denies syncope Psych Denies change in libido Endo Denies change in libido Physical Exam Const General: cooperative, healthy appearing, comfortable and no acute distress Orientation/consciousness: patient oriented x3 HEENT Face and sinus: Yes normal facial exam Mouth: moist mucous membranes Neck Neck: Yes normal visual inspection, Yes full ROM and Yes trachea midline Chest Chest palpation & inspection: normal inspection of the chest Resp Effort & Inspection: normal respiratory effort, able to speak in complete sentences and no respiratory distress GI Inspection: Yes normal to inspection Back/Spine/Pelvis Cervical Spine: normal cervical lordosis Thoracic/Lumbar Spine: thoracic and lumbar spine normal to inspection Skin General skin exam: no rashes or lesions noted Neuro General: patient oriented x3, gait normal, tone normal and moves all extremities Extrem General: Yes normal to inspection and Yes capillary refill normal Assessment & Plan Assessment & Plan (1) Kidney stone: Code(s): N20.0 - Calculus of kidney Category: Medical Plan Medical expulsion therapy Three-month follow-up imaging Orders: Orders US renal BI 3 Months N20.0 - Calculus of kidney Medications: New prednisone 20 mg PO DAILY 5 days 5 tabs 0RF N20.0 - Calculus of kidney Patient Instructions: This note is constructed using voice recognition software. While every effort has been made to ensure accuracy motion picture operator errors may have been included. Imaging studies, laboratory and physical exam results were discussed and reviewed in detail. No major barriers to patient understanding were identified. An opportunity to ask questions regarding the treatment plan was provided. All questions were answered. The patient expressed understanding and agreement with the above treatment plan. The patient is aware they should contact our office by phone for worsening of their current condition or the appearance of new urologic symptoms. Compliance is encouraged with any medications and followup testing that is ordered. It is a privilege to participate in the urologic care of your patient. If you have any questions or concerns regarding treatment for the above conditions, or other urologic issues, please do not hesitate to contact me. The office telephone contact is [phone]. Sincerely, Dr Yuri Matias MD, BEE [facility] - Urology Compassionate Specialist Care for the Genitourinary System Coding Level of Care Code Est Pt Level 4 (16562) Diagnoses Kidney stone N20.0
--- OUTSIDE RECORDS SUMMARY | 2024-09-02 14:17 | XMS_ITS | Encounter Summary ---
Author Organization [facility] Address [address] [place] [address] Care Team Providers Care J2Ee Consultant Name Role Phone Leland Trujillo MD Primary Care Provider Reason for Visit * Reason Comments DM Foot Care Encounter Details Date Type Department Care Team (Late st Contact Info) Description 08/31/2024 1:30 PM EST Office Visit Orthopedic Surgery - [place] [address] [address] Madelyn Diaz DPM [address] [address] Controlled type 2 diabetes with neuropathy (CMS/HCC) (Primary Dx); Lumbosacral radiculopathy; Arthritis of both feet; Dermatophytosis, nail Social History Tobacco Use Types Packs/Day Years Used Date Smoking Tobacco: Never Assessed Sex and Gender Information Value Date Recorded Sex Assigned at Not on file Gender Identity Not on file Sexual Orientation Not on file documented as of this encounter Last Filed Vital Signs Vital Sign Reading Time Taken Comments Blood Pressure - - Pulse - - Temperature - - Respiratory Rate - - Oxygen Saturation - - Inhaled Oxygen Concentration - - Weight 118 kg (260 lb) 08/31/2024 1:51 PM EST Height 182.9 cm (6') 08/31/2024 1:51 PM EST Body Mass Index 35.26 08/31/2024 1:51 PM EST documented in this encounter Progress Notes * Madelyn Diaz DPM - 08/31/2024 1:30 PM ESTAddended by: MADELYN DIAZ on: 08/31/2024 04:26 PM Modules accepted: Level of Service * Madelyn Diaz DPM - 08/31/2024 1:30 PM EST Referring MD: Ronnie Last PCP visit: 07/09/2024 IDENTIFIER: @TITLE@ Marianne is a 49 y.o. year old male who presents for consultation. CC: Bilateral foot pain HPI: 49-year-old male returns office chief complaint of bilateral foot pain. Patient notes he continues to have sharp shooting pain within his feet. Patient is a sugars well-controlled with an A1c of 5.6%. Patient has been checking his sugar daily and notes it is under 110 mg/dL. Patient continues to suffer with diffuse pain to the bottoms of the feet bilaterally. Patient is currently using a cane in order to allow for balance given that he is having his right lower extremity give out every once as well. Patient is here for evaluation treatment ROS: GENERAL: Pt denies nausea, fever, vomiting, chills, or shortness of breath. Pt in NAD. CARDIOLOGY: pt denies chest pain, palpitations LUNGS: pt denies shortness of breath MUSCULOSKELETAL: See HPI, otherwise no joint pain or swelling, back pain, or muscle pain. SKIN: see HPI, otherwise no lesions, rash or itching NEURO: No persistent headache, weakness or numbness The remainder of the review of systems is noncontributory PAST MEDICAL HISTORY: There is no problem list on file for this patient. SOCIAL HISTORY: Social History Tobacco Use Smoking status: Not on file Smokeless tobacco: Not on file Substance Use Topics Alcohol use: Not on file ACTIVE MEDICATIONS: No outpatient medications have been marked as taking for the 08/31/24 encounter (Office Visit) with Madelyn Diaz DPM. ALLERGIES: @ALL@ PHYSICAL EXAM: Height 1.829 m (72 ), weight 118 kg (260 lb). PODIATRIC EXAMINATION: GENERAL: Patient appears well nourished, with NAD. VASCULAR: Dorsalis pedis pulses are 2/4 bilaterally and Posterior tibial pulses are 2/4 bilaterally. Capillary filling time within normal limits the digits. No pallor on elevation or rubor on dependency. Positive hair growth. No varicosities. Denies rest pain or claudication pain. Hyperpigmentationthroughout the lower extremities overlying the medial dorsal foot and medial leg NEUROLOGICAL: Sharp/dull sensation diminished, protective sensation diminished on [place]. Multipleperipheral neuropathies throughout the plantar feet. ORTHOPEDIC: Good muscle strength 5/5 of all flexors and extensors. Dorsi flexion of ankle ,10 degrees, plantar flexion WNL. No muscle atrophy. Swelling and redness over the lateral aspect of the right foot near the calcaneocuboid joint pes cavus bilaterally with a flexible midfoot. Pain overlying the medial border of the left great toe with redness and swelling DERMATOLOGICAL:... Patient has nails that are elongated dystrophic discolored x10 with subungual debris. Continued but healing multiple areas of excoriation to the anterior aspect of the legs bilaterally. Some redness and swelling with pain on palpation of the medial border of the left great toe BIOMECHANICS: STJ ROM wnl, MTJ ROM wnl, 1st MPJ ROM wnl. IMPRESSION: 1. Controlled type 2 diabetes with neuropathy (CMS/HCC) 2. Lumbosacral radiculopathy 3. Arthritis of both feet 4. Dermatophytosis, nail PLAN: Pt was seen and examined, history reviewed. Patient is a well-controlled diabetic. Patient instructed to continue with current glucose control as it is limiting his chances for ulceration infection in the future. Patient continues to have discoloration of the nail plates of the bilateral great toes secondary tocontusion. Patient is to have sensation routinely bumps to his digits in his shoes. Patient encouraged to check his feet daily for nonhealing color changes within the digits. Patient understands that with the increased neuropathic sensations in his feet in light of his well-controlled sugar he most likely is suffering from lumbosacral radiculopathy. Patient encouraged to use topicals to help with the symptoms though it will not cure the underlying pathology associated with his back problems Patient continues to have unsteady gait and requires a cane for ambulation. Patient was offered physical therapy at this time but he declined. Patient understands he needs to be using an assistive device at all times to limit his chance for falls which can result in fractures, loss of consciousness, or ulcerations Nail debridement performed to nails 1-5 bilateral as nails were described to be causing pain and difficulty for walking while in shoegear at their previous length. They were debrided in thickness andlength, with no incident. Clinical evidence of mycosis is documented which required active treatment. Patient expressed immediate relief. Patient is to RTC in 9 weeks Madelyn Diaz DPM documented in this encounter Plan of Treatment Upcoming Encounters Date Type Department Care Team (Late st Contact Info) Description 11/02/2024 9:15 AM EDT Office Visit Orthopedic Surgery - [place] [address] [phone] Madelyn Diaz DPM [address] [address] documented as of this encounter Visit Diagnoses Diagnosis Controlled type 2 diabetes with neuropathy (CMS/HCC)- Primary Type II or unspecified type diabetes mellitus with neurological manifestations, not stated as uncontrolled Lumbosacral radiculopathy Thoracic or lumbosacral neuritis or radiculitis, unspecified Arthritis of both feet Dermatophytosis, nail Dermatophytosis of nail documented in this encounter Care Teams J2Ee Consultant Relationship Specialty Start Date End Date Leland Trujillo MD [address] [place] [address] [address] [place] [address] PCP - General 05/09/22 documented as of this encounter
--- OUTSIDE RECORDS SUMMARY | 2024-09-02 14:17 | XMS_ITS | Data Portability ---
Author Organization [place] - [facility], [facility] Address [address] [place] [phone] Assessment No assessment recorded. Plan of Treatment Reminders Order Date Submit Date Provider Last Modified By Organization Details Last Modified Time Details Appointments None recorded. Lab None recorded. 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 2023 024 [email or web address] 2 [facility], [address], [place], [address], 4 12:21:10 Procedures None recorded. Surgeries None [...] and Address Organization Details Recorded Time Dysphagia [id number] Active 024 BERNARDA Tellez MD 100 [facility],[address], [phone] 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 Procedures Surgical History Date Name Laterality Status Provider Name and Address Organization Details Recorded Time 01/20/2024 FFL_RE completed BERNARDA BELL MD 100 [facility] 100, [place], [address], [facility] 01/20/2024 09:14:05 Imaging Results Imaging Date Name Status LastModified by Organiz ation Details LastModified Time 10/01/2023 MRI, [facility] Information not available 01/22/2024 09:27:19 [...] Updated DateTime 01/20/2024 182.88 cm 35.3 kg/m2 401085.02 g Kat Major [place] - [facility] 01/20/2024 09:04:31 Social History None recorded. Functional Status None recorded. Mental Status None recorded. Family History Nothing Reported. Medical History No medical history recorded. Past Encounters Encounter ID Performer Location Encounter Start Date Encounter Closed Date Diagnosis/Indication Diagnosis SNOMED-CT Code Diagnosis ICD10 Code Diagnosis Note [id number] BERNARDA BELL MD [facility] [address] [address] 01/20/2024 08:46:56 01/20/2024 09:20:43 Dysphagia [id number] R13.10 Laryngosco py was normal. Mild. Recommend small bites and washing down with fluid and to call if it worsens. 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 BERNARDA BELL MD [address] [place] [address], [phone], [facility] - [facility] 01/20/2024 09:23:32
--- OUTSIDE RECORDS SUMMARY | 2024-09-02 14:18 | XMS_ITS | Clinical Summary ---
Author Organization 175 [facility] Address 175 [place] [address] Phone Care Team Providers Care Instructional Writer Name Role Phone Leland Trujillo MD Primary [...] Active NYSTATIN ORAL Take by mouth. Active Encounters Date Type Department Care Team Description 08/31/2024 1:30 PM EST Office Visit Orthopedic Surgery - [address] [phone] Joe Diaz DPM Controlled type 2 diabetes with neuropathy (CMS/HCC) (Primary Dx); Lumbosacral radiculopathy; Arthritis of both feet; Dermatophytosis, nail from Last 3 Months Immunizations Name Administration Dates Next Due Moderna [...] Mass Index 35.26 08/31/2024 1:51 PM EST Plan of Treatment Upcoming Encounters Date Type Department Care Team (Late st Contact Info) Description 11/02/2024 9:15 AM EDT Office Visit Orthopedic Surgery - [place] [address] 175 [facility] [address] [place] [address] Joe Diaz, DPM 175 [facility] [address] [place] [address] Health Maintenance Due Date Last Done Comments Diabetes: Annual Foot Exam 01/05/1986 Diabetes: Annual Retina Eye Exam 01/05/1986 Hepatitis B Vaccines (1 of 3 - 19+ 3-dose series) 01/05/1995 Pneumococcal Vaccine: Pediatrics (0 to 5 Years) and At-Risk Patients (6 to 64 Years) (2 of 2 - PCV) 12/04/2019 12/03/2018 Colorectal Cancer Screening: Colonoscopy 06/24/2022 Depression Screening 06/24/2022 HIV Screening 06/24/2022 Social Influencers of Health Screening 06/24/2022 Diabetes: Annual GFR (Glomerular Filtration Rate) 06/29/2022 06/29/2021, 01/27/2021, 12/03/2019, Additional history exists COVID-19 Vaccine ( season) 2024 12/01/2020, 11/03/2020 Influenza Vaccine (#1) 2024 04/13/2020, 2018 Diabetes: Annual Urine Albumin-Creatinine Ratio (uACR) 08/31/2024 02/03/2020, 02/03/2020, 02/26/2019 Diabetes: Blood Sugar Control Test (HGBA1C) 08/31/2024 06/29/2021 Hypertension/CHF/CAD Annual BMP Blood Test 08/31/2024 06/29/2021, 01/27/2021, 12/03/2019, Additional history exists Cholesterol Screening (Lipid Panel) 06/29/2026 06/29/2021 DTaP,Tdap,and Td Vaccines (5 - Td or Tdap) 12/29/2033 12/30/2023, 06/17/2020, 05/15/2015, Additional history exists Hepatitis C Screening Completed 09/01/2020 HIB Vaccines [...] 20 months Aged Out No longer eligible based on patient's age to complete this topic Varicella Vaccines Aged Out No longer eligible based on patient's age to complete this topic Procedures Procedure Name Priority Date/Time Associated Diagnosis Comments ANNUAL BMP BLOOD TEST Routine 06/29/2021 HEMOGLOBIN A1C Routine 06/29/2021 LIPID PANEL Routine 06/29/2021 HEPATITIS C SCREENING Routine 09/01/2020 URINE ALBUMIN CREATININE RATIO Routine 02/03/2020 from Last 3 Months or Most Recently Relevant to Health Maintenance Results * Annual BMP Blood Test (06/29/2021) Pathologist [facility] Annual BMP Blood Test abstracted Historical Provider MD EVELIN GRULLON E * Hemoglobin A1c (06/29/2021) Pathologist [facility] Hemoglobin A1C 0.0 % Comment:abstracted, no inter pretation Blood Venous blood specimen / Unknown Historical Provider LAB BLOOD ORDERAB LES * Lipid panel (06/29/2021) LDL/HDL Ratio 0 Comment:abstracted, no inter pretation Triglycerides 0 mg/dL Comment:abstracted, no inter pretation Cholesterol 0 mg/dL Comment:abstracted, no inter pretation HDL 0 mg/dL Comment:abstracted, no inter pretation LDL Cholesterol 0.0 mg/dL Comment:abstracted, no inter pretation Blood Venous blood specimen / Unknown Historical Provider LAB BLOOD ORDERAB LES * Hepatitis C Screening (09/01/2020) Hepatitis C Screening abstracted Historical Provider MD EVELIN GRULLON E * Urine Albumin Creatinine Ratio (02/03/2020) Urine Albumin Creatinine Ratio abstracted Historical Provider MD EVELIN Cosby from Last 3 Months or Most Recently Relevant to Health Maintenance Care Teams Instructional Writer Relationship Specialty Start Date End Date Leland Trujillo MD [address] [place] [address] Dr Michelle MA PCP - General 05/09/22
== END 2024-09-02 14:37 | disposition home or self-care (01) ==
PROVIDERS: PCP Family Medicine; Visit Provider Urology
DX: N20.0 Calculus of kidney (principal)
CPT/HCPCS: 99214

== ENCOUNTER → 2024-09-02 13:55 | Outpatient (BNVA) | payer OTHER, SELFPAY | PROVIDERS: PCP Family Medicine; Visit Provider Urology | DX: N20.0 Calculus of kidney (principal) | CPT/HCPCS: 99212 ==

== ENCOUNTER 2024-09-07 08:31 | Outpatient (AMB) | payer OTHER, SELFPAY ==
[2024-09-07 08:43] VITALS: BP 108/70; PULSE 101; O2SAT 95
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
--- OUTSIDE RECORDS SUMMARY | 2024-09-07 09:11 | XMS_ITS | Encounter Summary ---
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 ALLERGIES: @ALL@ PHYSICAL EXAM: Height [...] Sharp/dull sensation diminished, protective sensation diminished on [place]. Multipleperipheral neuropathies throughout the plantar feet. ORTHOPEDIC: [...] Patient is to RTC in 9 weeks Joe Diaz DPM documented in this encounter Plan of Treatment Upcoming Encounters Date Type Department Care Team (Late st Contact Info) Description 11/02/2024 9:15 AM EDT Office Visit Orthopedic Surgery - [place] [address] [phone] Joe Diaz DPM [address] [address] documented as of this encounter Visit Diagnoses Diagnosis Controlled type 2 diabetes with neuropathy (CMS/HCC)- Primary Type II or unspecified type diabetes mellitus with neurological manifestations, not stated as uncontrolled Lumbosacral radiculopathy Thoracic or lumbosacral neuritis or radiculitis, unspecified Arthritis of both feet Dermatophytosis, nail Dermatophytosis of nail documented in this encounter Care Teams Wine Consultant Relationship Specialty Start Date End Date Leland Trujillo MD [address] [place] [address] Dr Mc [address] [place] [address] PCP - General 05/09/22 documented as of this encounter
--- OUTSIDE RECORDS SUMMARY | 2024-09-07 09:12 | XMS_ITS | Data Portability ---
Author Organization [place] - [facility], [facility] Address [address] [place] [phone] Assessment No assessment recorded. Plan of Treatment Reminders Order Date Submit Date Provider Last Modified By Organization Details Last Modified Time Details Appointments None recorded. Lab None recorded. 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 2023 024 [email or web address] 2 [facility], [address], [place], [address], 4 12:21:10 Procedures None recorded. Surgeries None [...] and Address Organization Details Recorded Time Dysphagia [id number] Active 024 BERNARDA Tellez MD [address] 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 Procedures Surgical History Date Name Laterality Status Provider Name and Address Organization Details Recorded Time 01/20/2024 FFL_RE completed BERNARDA BELL MD 100 [facility] 100, [place], [address], [facility] 01/20/2024 09:14:05 Imaging Results Imaging Date Name Status LastModified by Organiz ation Details LastModified Time 10/01/2023 MRI, brain, w[facility]o contrast [email or web address] Information not available 01/22/2024 [...] Updated DateTime 01/20/2024 182.88 cm 35.3 kg/m2 223270.02 g Kat Major [place] - [facility] 01/20/2024 09:04:31 Social History None recorded. Functional Status None recorded. Mental Status None recorded. Family History Nothing Reported. Medical History No medical history recorded. Past Encounters Encounter ID Performer Location Encounter Start Date Encounter Closed Date Diagnosis/Indication Diagnosis SNOMED-CT Code Diagnosis ICD10 Code Diagnosis Note [id number] BERNARDA BELL MD [facility] [address] [address] 01/20/2024 08:46:56 01/20/2024 09:20:43 Dysphagia [id number] R13.10 Laryngosco py was normal. Mild. Recommend small bites and washing down with fluid and to call if it worsens. 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 BERNARDA BELL MD [address] [place] [address], [phone], [facility] - [facility] 01/20/2024 09:23:32
--- OUTSIDE RECORDS SUMMARY | 2024-09-07 09:12 | XMS_ITS | Clinical Summary ---
Author Organization 175 [facility] Address [address] [place] [address] Phone Care Team Providers Care Asphalt Smoother Name Role Phone Leland Trujillo MD Primary Care Provider Allergies Active Allergy Reactions Criticality Noted Date Comments Azithromycin Nausea And Vomiting,Weakness 07/27 Clonidine Nausea And Vomiting 07/27/2018 Erythromycin Anaphylaxis High 04/21/2011 Medications amLODIPine (NORVASC) 10 mg tablet Take 1 [...] daily. Active NYSTATIN ORAL Take by mouth. A ctive Encounters Date Type Department Care Team Description 08/31/2024 1:30 PM EST Office Visit Orthopedic Surgery [address] [phone] Joe Diaz DPM Controlled type 2 diabetes [...] AM EDT Office Visit Orthopedic Surgery - [place] [address] [facility] [address] [place] [address] Joe Diaz, DPM 175 [facility] [address] [place] [address] Health Maintenance Due Date Last Done Comments [...] patient's age to complete this topic Meningococcal B Vacine Aged Out No lo nger eligible based on patient's age to complete [...] * Annual BMP Blood Test (06/29/2021) Pathologist [facility] Annual BMP Blood Test abstracted Historical Provider HEALTH MAINTENANCE Final Result * Hemoglobin A1c (06/29/2021) Pathologist [facility] Hemoglobin A1C 0.0 % Comment:abstracted, no inter pretation Blood Venous blood specimen / Unknown Historical Provider LAB BLOOD ORDERABLES Rebeca l Result * Lipid panel (06/29/2021) Pathologist [facility] LDL/HDL Ratio 0 Comment:abstracted, no inter pretation Triglycerides 0 mg/dL Comment:abstracted, no inter pretation Cholesterol 0 mg/dL Comment:abstracted, no inter pretation HDL 0 mg/dL Comment:abstracted, no inter pretation LDL Cholesterol 0.0 mg/dL Comment:abstracted, no inter pretation Blood Venous blood specimen / Unknown Historical Provider LAB BLOOD ORDERABLES Rebeca l Result * Hepatitis C Screening (09/01/2020) Hepatitis C Screening abstracted Historical Provider HEALTH MAINTENANCE Final Result * Urine Albumin Creatinine Ratio (02/03/2020) Urine Albumin Creatinine Ratio abstracted Historical Provider HEALTH MAINTENANCE Final Result from Last 3 Months or Most Recently Relevant to Health Maintenance Insurance [facility] [employer] Care Teams Asphalt Smoother Relationship Specialty Start Date End Date Leland Trujillo MD [address] [place] [address] Dr Michelle [place] PCP - General 05/09/22
== END 2024-09-07 08:56 | disposition home or self-care (01) ==
PROVIDERS: PCP Family Medicine; Visit Provider Anesthesiology
DX: E66.01 Morbid (severe) obesity due to excess calories (principal); M46.1 Sacroiliitis, not elsewhere classified; M53.3 Sacrococcygeal disorders, not elsewhere classified; G89.4 Chronic pain syndrome
CPT/HCPCS: 99214

== ENCOUNTER → 2024-09-07 08:31 | Outpatient (BNVA) | payer OTHER, SELFPAY | PROVIDERS: PCP Family Medicine; Visit Provider Anesthesiology | DX: M46.1 Sacroiliitis, not elsewhere classified (principal); M53.3 Sacrococcygeal disorders, not elsewhere classified; G89.4 Chronic pain syndrome; E66.01 Morbid (severe) obesity due to excess calories | CPT/HCPCS: 99212 ==

== ENCOUNTER 2024-10-03 15:14 | Outpatient (AMB) | payer OTHER, SELFPAY ==
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
[2024-10-03 15:22] VITALS: PULSE 86; RESP 16; O2SAT 99; BMI 40.6
--- OUTSIDE RECORDS SUMMARY | 2024-10-03 17:24 | XMS_ITS | Clinical Summary ---
Author Organization 175 [facility] Address [address] [place] [address] Phone Care Team Providers Care Lead Generator Name Role Phone Leland Trujillo MD Primary [...] 1:30 PM EST Office Visit Orthopedic Surgery [address] [phone] Joe Diaz DPM Controlled type 2 diabetes [...] AM EDT Office Visit Orthopedic Surgery - [place] [address] [facility] [address] [place] [address] Joe Diaz, DPM 175 [facility] [address] [place] [address] Health Maintenance Due Date Last Done Comments [...] * Annual BMP Blood Test (06/29/2021) Pathologist [facility] Annual BMP Blood Test abstracted Historical Provider HEALTH MAINTENANCE Final Result * Hemoglobin A1c (06/29/2021) Pathologist [facility] Hemoglobin A1C 0.0 % Comment:abstracted, no inter pretation Blood Venous blood specimen / Unknown Historical Provider LAB BLOOD ORDERABLES Rebeca l Result * Lipid panel (06/29/2021) Pathologist [facility] LDL/HDL Ratio 0 Comment:abstracted, no inter pretation [...] Most Recently Relevant to Health Maintenance Insurance [facility] [place] [address] Care Teams Lead Generator Relationship Specialty Start Date End Date Leland Trujillo MD [address] [place] [address] Dr Michelle MA PCP - General 05/09/22
== END 2024-10-03 15:31 | disposition home or self-care (01) ==
PROVIDERS: PCP Family Medicine; Visit Provider Anesthesiology
DX: E66.01 Morbid (severe) obesity due to excess calories (principal); M46.1 Sacroiliitis, not elsewhere classified; M53.3 Sacrococcygeal disorders, not elsewhere classified; G89.4 Chronic pain syndrome
CPT/HCPCS: 99213

== ENCOUNTER → 2024-10-03 15:14 | Outpatient (BNVA) | payer OTHER, SELFPAY | PROVIDERS: PCP Family Medicine; Visit Provider Anesthesiology | DX: M46.1 Sacroiliitis, not elsewhere classified (principal); M53.3 Sacrococcygeal disorders, not elsewhere classified; G89.4 Chronic pain syndrome; E66.01 Morbid (severe) obesity due to excess calories; Z68.41 Body mass index [BMI] 40.0-44.9, adult | CPT/HCPCS: 99212 ==

== ENCOUNTER 2024-10-11 16:07 | Emergency (ER) | payer OTHER, SELFPAY ==
--- NOTE | ~2024-10-11 | XR_ITS ---
CLINICAL HISTORY: pain 3 views lumbar spine Comparison: 12/16/2023 Findings: No fracture or acute malalignment . Mild and moderate multilevel degenerative change most pronounced at L5-S1 Diffuse fecal retention. IMPRESSION: No acute fracture. Mild and moderate degenerative changes. This document has been electronically signed by: Lee Bradley MD on 10/11/2024 17:19:41
[2024-10-11 16:13] VITALS: BP 140/90; PULSE 90; O2SAT 98
[2024-10-11 16:17] VITALS: BP 126/86; PULSE 94; RESP 20; TEMP 36.4; O2SAT 98; BMI 40.5
--- NOTE | 2024-10-11 16:23 | ED.GENADULT ---
HPI - General Adult General Chief complaint: Back Pain/Injury Stated complaint: back pain Source: patient Limitations: no limitations History of Present Illness ED Provider: Kathya Diaz PA-C HPI narrative: 49-year-old male with chronic back pain who presents with lumbar strain. 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 Patient now having right-sided lumbar pain with radiation to the right lower extremity. Denies urinary retention or bowel incontinence, no weakness of lower extremities. Related Data Home Medications ?Medication ?Instructions ?Recorded ?Confirmed amitriptyline 25 mg tablet 50 mg PO BEDTIME 01/01/23 09/07/24 escitalopram oxalate 5 mg tablet 5 mg PO DAILY 07/08/23 09/07/24 hydroxyzine HCl 25 mg tablet 25 mg PO TID 10/07/23 09/07/24 topiramate 100 mg tablet 300 mg PO DAILY 10/07/23 09/07/24 ipratropium 20 mcg-albuterol 100 1 puff inhalation Q6H PRN 10/27/23 09/07/24 mcg/actuation mist for inhalation (Combivent Respimat) Previous Rx's ?Medication ?Instructions ?Recorded triamcinolone acetonide 0.1 % 1 appl topical DAILY 30 days #80 04/21/22 topical cream grams bupropion HCl 150 mg 24 hr tablet, 150 mg PO QAM 90 days #90 tabs 05/06/22 extended release aripiprazole 5 mg tablet 5 mg PO DAILY 90 days #90 tabs 05/11/22 bupropion HCl 300 mg 24 hr tablet, 300 mg PO DAILY 90 days #90 tabs 05/11/22 extended release tamsulosin 0.4 mg capsule 0.4 mg PO DAILY 90 days #90 caps 09/23/23 rosuvastatin 40 mg tablet 40 mg PO DAILY 90 days #90 tabs 10/07/23 umeclidinium 62.5 mcg-vilanterol 1 inh inhalation Q24H 30 days #60 12/22/23 25 mcg/actuation powdr for ea inhalation (Anoro Ellipta) isosorbide mononitrate 30 mg 30 mg PO DAILY 90 days #90 tabs 04/25/24 tablet,extended release 24 hr clotrimazole 1 % topical cream 1 appl topical BID 2 weeks #45 12/11/24 grams carvedilol 25 mg tablet 25 mg PO Q12H 90 days #180 tabs 07/08/24 cyanocobalamin (vitamin B-12) 1,000 mcg PO DAILY 90 days #90 tabs 07/08/24 1,000 mcg tablet prednisone 20 mg tablet 20 mg PO DAILY 7 days #7 tabs 07/13/24 tamsulosin 0.4 mg capsule 0.4 mg PO DAILY #7 caps 07/13/24 amlodipine 10 mg tablet 10 mg PO DAILY 90 days #90 tabs 07/14/24 duloxetine 30 mg capsule,delayed 30 mg PO DAILY 90 days #90 caps 08/04/24 release ibuprofen 800 mg tablet 800 mg PO Q8H PRN pain #30 tabs 08/11/24 oxycodone 5 mg tablet 5 mg PO BID PRN pain #7 tabs 08/11/24 morphine 15 mg immediate release 15 mg PO Q6H PRN pain #12 tabs 08/28/24 tablet ondansetron 4 mg disintegrating 4 mg PO Q8H PRN nausea and 08/28/24 tablet vomiting #20 tabs prednisone 20 mg tablet 20 mg PO DAILY 5 days #5 tabs 09/02/24 pyridoxine (vitamin B6) 50 mg 50 mg PO DAILY 90 days #90 tabs 09/06/24 tablet indomethacin 25 mg capsule 25 mg PO BID 30 days #60 caps 09/08/24 pramipexole 0.5 mg tablet 0.5 mg PO BEDTIME 30 days #30 tabs 09/13/24 metformin 500 mg tablet 500 mg PO BID 90 days #180 tabs 09/16/24 omeprazole 20 mg capsule,delayed 20 mg PO BID 90 days #180 caps 09/16/24 release gabapentin 300 mg capsule 300 mg PO TID 30 days #90 caps 09/30/24 aspirin 81 mg tablet,delayed 81 mg PO DAILY 90 days #90 tabs 10/10/24 release (Adult Low Dose Aspirin) cholecalciferol (vitamin D3) 25 25 mcg PO DAILY 90 days #90 caps 10/10/24 mcg (1,000 unit) capsule loratadine 10 mg tablet 10 mg PO DAILY 90 days #90 tabs 10/10/24 ketorolac 10 mg tablet 10 mg PO Q6H PRN pain #20 tabs 10/11/24 methocarbamol 750 mg tablet 1,500 mg (2 x 750 mg) PO Q8H PRN 10/11/24 pain, moderate #20 tabs Allergies Allergy/AdvReac Type Severity Reaction Status Date / Time erythromycin base Allergy Mild Confusion Verified 10/11/24 16:23 clonidine AdvReac Severe Vomiting Verified 10/11/24 16:23 Review of Systems Review of Systems: Yes all other systems are reviewed and are negative Constitutional: Constitutional: Denies fatigue and Denies fever(s) Gastrointestinal: Gastrointestinal: Denies abdominal pain, Denies nausea and Denies vomiting Genitourinary: Genitourinary: Denies hematuria and Denies flank pain Musculoskeletal: Musculoskeletal: Reports back pain, Denies muscle weakness, Denies numbness, Reports radiating pain into limb and Denies tingling Neurologic: Denies numbness and Denies tingling Endocrine: Endocrine: Denies fatigue PMFSH Past Medical History Attestation statement: The following information was validated with the patient. Medical History Adult general medical exam Laboratory exam ordered as part of routine general medical examination Imbalance Left-sided chest wall pain Dizziness Fatigue Unsteady gait Yeast infection of the skin Cough Abnormal lung sounds Abnormal CT lung screening Headache Puncture wound of scalp Left knee pain Sacroiliitis Osteoarthritis of knee Infection of skin Exposure to potential infection Urinary hesitancy Screening for prostate cancer Screening for colon cancer Difficulty swallowing Decreased visual acuity Low vitamin B12 level Obesity (BMI 30-39.9) Morbid obesity Elevated fasting glucose Chest discomfort COPD (chronic obstructive pulmonary disease) KELSY on CPAP Torn rotator cuff Diabetes High cholesterol Hypertension Surgical History Stented coronary artery History of carpal tunnel surgery Family History Family History Other Mental health disorder Substance abuse Social History Social History Housing: House Alcohol intake: never Patient Tobacco Use Status: Former Tobacco user e-Cigarette/Vaping Use: Never Used Second Hand Smoke Exposure: No Advance Directives: No Advance Directives Information Provided: Yes Do you have a plan to hurt others: No Plan service: No Current occupational status: unemployed Current occupational exposures/hazards: No Cognitive needs: No Hearing needs: No Vision needs: Yes Physical Exam ED Vital Signs: Vital Signs - 24 hr 10/11/24 16:17 Temperature 97.6 F Pulse Rate 94 Respiratory Rate 20 Blood Pressure 126/86 Pulse Oximetry 98 Oxygen Delivery Method Room Air BMI result Body Mass Index 40.5 Const Other: Alert Orientation/consciousness: patient oriented x3 Resp Effort & Inspection: normal respiratory effort Cardio Other: Normal peripheral perfusion Skin Other: Warm dry no rash Neuro Other: Antalgic gait General: patient oriented x3, no focal motor deficits and CN's II-XI intact bilaterally Psych Other: Calm cooperative Course Course Course Narrative: This is a rapid medical exam performed by Kathya Diaz PA-C. Patient is a 49-year-old male with chronic back pain who presents with lumbar strain. 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 Patient now having right-sided lumbar pain with radiation to the right lower extremity. Patient has no red flag signs symptoms concerning for cord compression. He is ambulatory walks with a cane. We will order an x-ray. The patient was stable and can return to the waiting room pending his full medical assessment. Medical Decision Making Medical Decision Making MDM Narrative: 49-year-old male with chronic back pain who presents with lumbar strain. 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 Patient now having right-sided lumbar pain with radiation to the right lower extremity. Denies urinary retention or bowel incontinence, no weakness of lower extremities. Problem: Chronic back pain History: Per patient I have considered the following differential diagnoses: Lumbar strain/spasm, lumbar radiculopathy, cauda equina, compression fracture Plan: X-ray obtained from triage, the patient has arthritic changes, with the radicular symptoms, without red flag signs symptoms concerning for cord compression. We will treat with the anti-inflammatory and a muscle relaxant. I have independently reviewed the following tests: X-ray lumbar spine:MPRESSION: No acute fracture. Mild and moderate degenerative changes. Discharge Plan Discharge Clinical Impression: Lumbar radiculopathy Patient Disposition: Home, Self-Care Instructions: Lumbar Radiculopathy (ED) Additional Instructions: The x-ray revealed that you have arthritis in the spine. You are being treated for lumbar radiculopathy. See home care instructions. Use the ketorolac as directed, this is an anti-inflammatory, take it with food. Use the methocarbamol as needed for further pain, this is a muscle relaxant, it may cause drowsiness do not drive or operate machinery while taking this medication. Continue to follow up with pain management for your next joint injection. Prescriptions: New ketorolac 10 mg tablet 10 mg PO Q6H PRN (Reason: pain) Qty: 20 0RF Rx Instructions: maximum total duration of 5 days from all oral, intranasal, or parenteral formulations. The patient intramuscular dose of Toradol here in the emergency department. methocarbamol 750 mg tablet 1,500 mg PO Q8H PRN (Reason: pain, moderate) Qty: 20 0RF No Action triamcinolone acetonide 0.1 % cream 1 appl topical DAILY 30 Days Qty: 80 1RF bupropion HCl 150 mg tablet extended release 24 hr 150 mg PO QAM 90 Days Qty: 90 2RF bupropion HCl 300 mg tablet extended release 24 hr 300 mg PO DAILY 90 Days Qty: 90 2RF aripiprazole 5 mg tablet 5 mg PO DAILY 90 Days Qty: 90 2RF tamsulosin 0.4 mg capsule 0.4 mg PO DAILY 90 Days Qty: 90 2RF Anoro Ellipta 62.5-25 mcg/actuation blister with device 1 inh inhalation Q24H 30 Days Qty: 60 2RF isosorbide mononitrate 30 mg tablet extended release 24 hr 30 mg PO DAILY 90 Days Qty: 90 3RF cyanocobalamin (vitamin B-12) 1,000 mcg tablet 1,000 mcg PO DAILY 90 Days Qty: 90 0RF carvedilol 25 mg tablet 25 mg PO Q12H 90 Days Qty: 180 0RF Rx Instructions: must administer with a meal/food amlodipine 10 mg tablet 10 mg PO DAILY 90 Days Qty: 90 0RF duloxetine 30 mg capsule,delayed release(DR/EC) 30 mg PO DAILY 90 Days Qty: 90 0RF pyridoxine (vitamin B6) 50 mg tablet 50 mg PO DAILY 90 Days Qty: 90 1RF indomethacin 25 mg capsule 25 mg PO BID 30 Days Qty: 60 0RF Rx Instructions: administer with food or milk pramipexole 0.5 mg tablet 0.5 mg PO BEDTIME 30 Days Qty: 30 0RF omeprazole 20 mg capsule,delayed release(DR/EC) 20 mg PO BID 90 Days Qty: 180 0RF metformin 500 mg tablet 500 mg PO BID 90 Days Qty: 180 0RF gabapentin 300 mg capsule 300 mg PO TID 30 Days Qty: 90 0RF cholecalciferol (vitamin D3) 25 mcg (1,000 unit) capsule 25 mcg PO DAILY 90 Days Qty: 90 0RF aspirin [Adult Low Dose Aspirin] 81 mg tablet,delayed release (DR/EC) 81 mg PO DAILY 90 Days Qty: 90 0RF loratadine 10 mg tablet 10 mg PO DAILY 90 Days Qty: 90 0RF prednisone 20 mg tablet 20 mg PO DAILY 7 Days Qty: 7 0RF tamsulosin 0.4 mg capsule 0.4 mg PO DAILY Qty: 7 0RF oxycodone 5 mg tablet 5 mg PO BID PRN (Reason: pain) Qty: 7 0RF Rx Instructions: Partial Fill upon patient request. ibuprofen 800 mg tablet 800 mg PO Q8H PRN (Reason: pain) Qty: 30 0RF morphine 15 mg tablet 15 mg PO Q6H PRN (Reason: pain) Qty: 12 0RF Rx Instructions: partial fill okay; Partial Fill upon patient request. ondansetron 4 mg tablet,disintegrating 4 mg PO Q8H PRN (Reason: nausea and vomiting) Qty: 20 0RF escitalopram oxalate 5 mg tablet 5 mg PO DAILY amitriptyline 25 mg tablet 50 mg PO BEDTIME topiramate 100 mg tablet 300 mg PO DAILY Rx Instructions: Take 1 tab in the morning and 2 at bedtime. hydroxyzine HCl 25 mg tablet 25 mg PO TID rosuvastatin 40 mg tablet 40 mg PO DAILY 90 Days Qty: 90 3RF Combivent Respimat 20-100 mcg/actuation mist 1 puff inhalation Q6H PRN clotrimazole 1 % cream 1 appl topical BID 14 Days Qty: 45 1RF prednisone 20 mg tablet 20 mg PO DAILY 5 Days Qty: 5 0RF Print Language: Yakut
[2024-10-11] MEDS: Ketorolac Tromethamine 15 MG/ML VIAL IM (18:22)
[2024-10-11] MEDS: methocarbamoL 750 MG TABLET 1500 MG PO (18:23)
[2024-10-11 18:28] VITALS: BP 126/86; PULSE 94; RESP 20; TEMP 36.4; O2SAT 98
== END 2024-10-11 18:28 | disposition home or self-care (01) ==
PROVIDERS: Emergency Provider Emergency Medicine; PCP Family Medicine
DX: M54.16 Radiculopathy, lumbar region (principal); M54.50 Low back pain, unspecified
CPT/HCPCS: 72100; 96372; 99283; 99284; J1885

== ENCOUNTER → 2024-10-11 16:20 | Outpatient (BNV) | payer OTHER, SELFPAY | PROVIDERS: Visit Provider Radiology Vascular & Interventional Radiology | DX: M54.50 Low back pain, unspecified (principal) | CPT/HCPCS: 72100 ==

== ENCOUNTER 2024-11-08 08:23 | Outpatient (REF) | payer OTHER, SELFPAY ==
--- OUTSIDE RECORDS SUMMARY | 2024-11-08 08:30 | XMS_ITS | Data Portability ---
Author Organization [place] - [facility], [facility] Address [address] [place] [id number] Assessment No assessment recorded. Plan of Treatment Reminders Order Date Submit Date Provider Last Modified By Organization Details Last Modified Time Details Appointments None recorded. Lab None recorded. 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 2023 024 [email or web address] 2 [facility], [address], [place], [address], 4 12:21:10 Procedures None recorded. 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 Procedures Surgical History Date Name Laterality Status Provider Name and Address Organization Details Recorded Time 01/20/2024 FFL_RE completed BERNARDA BELL MD 100 [facility] 100, [place], [address], [facility] 01/20/2024 09:14:05 Imaging Results Imaging Date Name Status LastModified by Organiz ation Details LastModified Time 10/01/2023 MRI, brain, w/o contrast [email or web address] Information not available 01/22/2024 09:27:19 Procedure Notes [...] Updated DateTime 01/20/2024 182.88 cm 35.3 kg/m2 577862.02 g Kat Major [place] - [facility] 01/20/2024 09:04:31 Social History None recorded. Functional Status None recorded. Mental Status None recorded. Family History Nothing Reported. Medical History No medical history recorded. Past Encounters Encounter ID Performer Location Encounter Start Date Encounter Closed Date Diagnosis/Indication Diagnosis SNOMED-CT Code Diagnosis ICD10 Code Diagnosis Note [id number] BERNARDA BELL MD [facility] [address] [phone] 01/20/2024 08:46:56 01/20/2024 09:20:43 Dysphagia 32203404 R13.10 Laryngosco py was normal. Mild. Recommend small bites and washing down with fluid and to call if it worsens. 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 BERNARDA BELL MD [address] [place] [address], [phone], [facility] - [facility] 01/20/2024 09:23:32
--- OUTSIDE RECORDS SUMMARY | 2024-11-08 08:30 | XMS_ITS | Clinical Summary ---
Author Organization 175 [facility] Address [address] [place] [address] Phone Care Team Providers Care Resident Inspector Name Role Phone Leland Trujillo MD Primary [...] Encounters Date Type Department Care Team Description 11/02/2024 9:15 AM EDT Office Visit Orthopedic Surgery [address] [phone] Joe Diaz DPM Controlled type 2 diabetes with neuropathy ([facility] V24, [facility] V28) (Primary Dx); Lumbosacral radiculopathy; Arthritis of both feet; Dermatophytosis, nail 08/31/2024 1:30 PM EST Office Visit Orthopedic [place] [address] [address] Joe Diaz DPM Controlled type 2 diabetes with neuropathy ([facility] V24, [facility] V28) (Primary Dx); Lumbosacral radiculopathy; Arthritis of both feet; Dermatophytosis, nail from Last 3 Months Immunizations Name Administration Dates Next Due Moderna SARS-CoV-2 COVID-19, mRNA, LNP-S, preservative free 12/01/2020,11/03/2020 Medical History Medical History Date Comments Diabetes mellitus (CMS/[facility] V24, [facility] V28) DX:Diabetes mellitus (HCC) Heart attack (CMS/HCC V24, CMS/[facility] V28) DX:Heart attack (HCC) Mixed hyperlipidemia DX:Mixed hy [...] - - Weight 118 kg (260 lb) 11/02/2024 9:42 AM EDT Height 182.9 cm (6' 0.01 ) 11/02/2024 9:42 AM ED T Body Mass Index 35.25 11/02/2024 9:42 AM EDT Plan of Treatment Upcoming Encounters Date Type Department Care Team (Late st Contact Info) Description 01/04/2025 8:30 AM EDT Office Visit Orthopedic Surgery - [place] [address] [phone] oJe Diaz, DPAshish [address] [address] Health Maintenance Due Date Last Done Comments [...] COVID-19 Vaccine ( season) 2024 12/01/2020, 11/03/2020 Diabetes: Annual Urine Albumin-Creatinine Ratio (uACR) 08/31/2024 02/03/2020, 02/03/2020, 02/26/2019 Diabetes: Blood Sugar Control Test (HGBA1C) 08/31/2024 06/29/2021 Hypertension/CHF/CAD Annual BMP Blood Test 08/31/2024 06/29/2021, 01/27/2021, 12/03/2019, Additional history exists Influenza Vaccine (Season Ended) 2025 04/13/2020, 05/03/2019 Cholesterol Screening (Lipid Panel) 06/29/2026 06/29/2021 DTaP,Tdap,and [...] age to complete this topic Meningococcal B Vaccine Aged Out No l onger eligible based on patient's age to complete [...] Results * Annual BMP Blood Test (06/29/2021) Annual BMP Blood Test abstracted Historical Provider MD HEALTH MAINTENANCE Final Result * Hemoglobin A1c (06/29/2021) Pathologist [facility] Hemoglobin A1C 0.0 % Comment:abstracted, no inter pretation Blood Venous blood specimen / Unknown [facility] Provider LAB BLOOD ORDERABLES Rebeca l Result * Lipid panel (06/29/2021) Pathologist [facility] LDL/HDL Ratio 0 Comment:abstracted, no inter pretation Triglycerides 0 mg/dL Comment:abstracted, no inter pretation Cholesterol 0 mg/dL Comment:abstracted, no inter pretation HDL 0 mg/dL Comment:abstracted, no inter pretation LDL Cholesterol 0.0 mg/dL Comment:abstracted, no inter pretation Blood Venous blood specimen / Unknown Result [facility] Provider LAB BLOOD ORDERABLES Rebeca l Result * Hepatitis C Screening (09/01/2020) Pathologist [facility] Hepatitis C Screening abstracted [facility] Provider HEALTH MAINTENANCE Final Result * Urine Albumin Creatinine Ratio (02/03/2020) Pathologist [facility] Urine Albumin Creatinine Ratio abstracted [facility] Provider HEALTH MAINTENANCE Final Result from Last 3 Months or Most Recently Relevant to Health Maintenance Insurance [facility] [employer] [facility] Care Teams Resident Inspector Relationship Specialty Start Date End Date Leland Trujillo MD [address] [place] [address] Dr Michelle MA PCP - General 05/09/22
[2024-11-08 08:36] LABS: MANUAL DIFF FLAG NO
[2024-11-08 09:37] LABS: Basophils Absolute Auto 0.1 X10*3/uL (0.0-0.2); Basophils Percent Auto 1.4 % (0-2); Eosinophils Absolute Auto 0.3 X10*3/uL (0.0-0.4); Eosinophils Percent Auto 4.5 % (0-4); Hematocrit 41.8 % (42.0-52.0); Hemoglobin 13.9 g/dl (14.0-18.0); Imm Gran Abs Auto 0.03 X10*3/uL (0.00-0.03); Imm Gran Pct Auto 0.5 % (0.0-0.4); Lymphocytes Absolute Auto 2.1 X10*3/uL (1.2-4.9); Lymphocytes Percent Auto 36.2 % (20-40); Mean Corpuscular HGB Conc 33.3 g/dl (31.0-36.0); Mean Corpuscular Hemoglobin 29.2 pg (27.0-33.0); Mean Corpuscular Volume 87.8 fL (80.0-98.0); Mean Platelet Volume 10.5 fL (9.4-12.4); Monocytes Absolute Auto 0.5 X10*3/uL (0.1-1.2); Neutrophils Absolute Auto 2.8 x10*3/uL (2.0-8.3); Neutrophils Percent Auto 49.4 % (45-73); Platelet Count 200 X10*3/uL (160-400); Red Blood Count 4.76 X10*6/uL (4.60-5.80); Red Cell Distribution Width 13.5 % (11.0-16.0); White Blood Count 5.7 X10*3/uL (4.8-10.8)
[2024-11-08 10:34] LABS: Alanine Aminotransferase 45 U/L (0-40); Albumin Level 4.2 g/dL (3.5-5.0); Alkaline Phosphatase 96 U/L (39-117); Anion Gap 9 (12-20); Aspartate Amino Transferase 39 U/L (5-37); Bilirubin Total 0.3 mg/dL (0.0-1.0); Blood Urea Nitrogen 21 mg/dL (9-16); Calcium 9.7 mg/dL (8.4-10.2); Carbon Dioxide 24 mmol/L (22-29); Chloride 111 mmol/L (96-108); Cholesterol 138 mg/dL (<200); Estimated Glomerular Filt Rate > 60; Glucose Fasting 146 mg/dL (60-99); HDL Cholesterol 39 mg/dL (>40); LDL Cholesterol Calculated 57 mg/dL (<100); Potassium 4.2 mmol/L (3.3-5.1); Sodium 140 mmol/L (135-145); Total Protein 7.1 g/dL (6.5-8.0); Triglycerides 213 mg/dL (<150)
[2024-11-08 10:44] LABS: Prostate Specific Antigen Scr < 0.10 ng/mL (<0.05-4.0)
[2024-11-08 10:51] LABS: TSH reflex Free T4 1.11 uIU/mL (0.32-4.0)
[2024-11-08 10:55] LABS: Appearance Urine Clear; Color Urine Yellow; Glucose Urine UA Negative (Negative); Leukocyte Esterase Urine Negative (Negative); Nitrite Urine Negative (Negative); PH 6.5 (5.0-9.0); Specific Gravity - Urine <= 1.005 (1.005-1.025); Urine Blood Negative (Negative); Urine Ketones Negative (Negative); Urine Protein Negative (Neg-Trace)
[2024-11-08 11:52] LABS: Creatinine Urine 46.88 mg/dL; Microalbumin Urine < 5.0 mg/L
== END 2024-11-08 08:24 | disposition home or self-care (01) ==
LOC: HO.LAB 08:23
PROVIDERS: Family Medicine; PCP Internal Medicine; Visit Provider Internal Medicine
DX: Z00.00 Encounter for general adult medical examination without abnormal findings (principal); I10 Essential (primary) hypertension; Z12.5 Encounter for screening for malignant neoplasm of prostate
CPT/HCPCS: 36415; 80053; 80061; 81003; 82043; 82570; 84153; 84443; 85025

== ENCOUNTER 2024-11-14 08:50 | Outpatient (AMB) | payer OTHER, SELFPAY ==
--- NOTE | 2024-11-14 08:57 | MHC.PC.OV ---
Vital Signs 11/14/24 09:05 Height 6 ft Weight 303 lb 4 oz BMI 41.1 BP 110/70 Blood Pressure Location Rt brachial Position Sitting Respiration 14 Pulse 81 Pulse Source Pulse Oximeter Temp 98.0 F Temp Source Oral Pulse Oximetry (%) 99 Oxygen Delivery Method Room Air Intake Visit Reasons: CPE with f/u labs and health maint Intake Note: patient is scheduled for cpe pt is questioning if he can get water pills due to ankle swelling when removing his socks at bedtime Allergies erythromycin base Allergy (Mild, Verified 11/14/24 08:59) Confusion clonidine Adverse Reaction (Severe, Verified 11/14/24 08:59) Vomiting Medication List - Last Reconciled 11/14/24 by Leland Trujillo MD amitriptyline 50 mg PO BEDTIME amlodipine 10 mg PO DAILY 90 days aripiprazole 5 mg PO DAILY 90 days aspirin (Adult Low Dose Aspirin) 81 mg PO DAILY 90 days bupropion HCl XL 150 mg PO QAM 90 days bupropion HCl XL 300 mg PO DAILY 90 days carvedilol 25 mg PO Q12H 90 days cholecalciferol (vitamin D3) 25 mcg PO DAILY 90 days clotrimazole 1% 1 appl topical BID 2 weeks cyanocobalamin (vitamin B-12) 1,000 mcg PO DAILY 90 days duloxetine 30 mg PO DAILY 90 days escitalopram oxalate 5 mg PO DAILY gabapentin 300 mg PO TID 30 days hydroxyzine HCl 25 mg PO TID ibuprofen 800 mg PO Q8H PRN indomethacin 25 mg PO BID 30 days ipratropium-albuterol 20-100 mcg/actuation (Combivent Respimat) 1 puff inhalation Q6H PRN isosorbide mononitrate ER 30 mg PO DAILY 90 days ketorolac 10 mg PO Q6H PRN loratadine 10 mg PO DAILY 90 days metformin 500 mg PO BID 90 days methocarbamol 1,500 mg (2 x 750 mg) PO Q8H PRN morphine 15 mg PO Q6H PRN omeprazole 20 mg PO BID 90 days ondansetron 4 mg PO Q8H PRN pramipexole 0.5 mg PO BEDTIME 30 days pyridoxine (vitamin B6) 50 mg PO DAILY 90 days rosuvastatin 40 mg PO DAILY 90 days tamsulosin 0.4 mg PO DAILY tamsulosin 0.4 mg PO DAILY 90 days topiramate 300 mg PO DAILY triamcinolone acetonide 0.1% 1 appl topical DAILY 30 days umeclidinium-vilanterol 62.5-25 mcg/actuation (Anoro Ellipta) 1 inh inhalation Q24H 30 days Tobacco use date assessed: 11/14/24 Dental Screening Dental Screen Date: 11/14/24 Did you have a dental visit in the last 12 months?: Yes Did you have a dental problem in the last 6 months where you did not have access to dental care?: Yes Was dental information given to patient?: No HPI CPE with f/u labs and health maint HPI Details 49 y/o male presents for a CPE with f/u labs and health maintenance. Labs drawn 11/08/24. Reviewed labs with pt. Mild anemia. Fasting glucose 146. Elevated liver renzymes - AST 39, ALT 45. Triglycerides 213. TC 138. LDL 57. HDL low at 39. Blood pressure today 110/70, 81p. He is on carvedilol 25mg, amlodipine 10mg daily. He notes he has an appt. with Cardiology tomorrow. Hx of CAD. Also followed by pain management. He walks around the house for exercise. [facility] Medical History Adult general medical exam Laboratory exam ordered as part of routine general medical examination Imbalance Left-sided chest wall pain Dizziness Fatigue Unsteady gait Yeast infection of the skin Cough Abnormal lung sounds Abnormal CT lung screening Headache Puncture wound of scalp Left knee pain Sacroiliitis Osteoarthritis of knee Infection of skin Exposure to potential infection Urinary hesitancy Screening for prostate cancer Screening for colon cancer Difficulty swallowing Decreased visual acuity Low vitamin B12 level Obesity (BMI 30-39.9) Morbid obesity Elevated fasting glucose Chest discomfort COPD (chronic obstructive pulmonary disease) KELSY on CPAP Torn rotator cuff Diabetes High cholesterol Hypertension Surgical History Stented coronary artery History of carpal tunnel surgery Family History Other Mental health disorder Substance abuse Social History Housing: House Alcohol intake: never Patient Tobacco Use Status: Former Tobacco user e-Cigarette/Vaping Use: Never Used Second Hand Smoke Exposure: No service: No Current occupational status: unemployed Current occupational exposures/hazards: No Cognitive needs: No Hearing needs: No Vision needs: Yes Questionnaire PHQ-9 Over the last 2 weeks, how often have you been bothered by any of the following problems? 1. Little interest or pleasure in doing things: nearly every day 2. Feeling down, depressed, or hopeless: nearly every day 3. Trouble falling or staying asleep, or sleeping too much: nearly every day 4. Feeling tired or having little energy: nearly every day 5. Poor appetite or overeating: nearly every day 6. Feeling bad about yourself - or that you are a failure or have let yourself or your family down: nearly every day 7. Trouble concentrating on things, such as reading the newspaper or watching television: nearly every day 8. Moving or speaking so slowly that other people could have noticed. Or the opposite - being so fidgety or restless that you have been moving around a lot more than usual: nearly every day 9. Thoughts that you would be better off or of hurting yourself in some way: nearly every day Total score: 27 Depression Screening Interpretation: Positive Depression Screening Done: Yes 20571 - PHQ-9 Billing: Yes Source: Developed by Drs. Arnoldo Carreno, Dyan Edwards, Alvarez Jose and colleagues, with an educational shanna from [employer]. Thrive Questionnaire Date Thrive assessed: 11/14/24 I am a: Patient What is your living situation today?: I have a steady place to live Within the past 12 months, did the food you bought not last and you didn't have the money to get more?: Never true Within the past 12 months, did you worry whether your food would run out before you got money to buy more?: Never true Do you have trouble paying for medicines?: No Do you have trouble getting transportation to medical appointments?: No Do you have trouble paying your heating and electricity bill?: No Do you have trouble taking care of your child, family member or friend?: No Do you have trouble with day-to-day activities such as bathing, preparing meals, shopping, managing finances, etc.?: I choose not to answer this question Are you currently unemployed and looking for a job?: Yes Are you interested in more education?: No Please select the resources that you would like help with: Transportation Currently or been in a relationship where the following occur: No concerns reported THRIVE Score: 0 AUDIT C Alcohol Use Questionnaire (AUDIT-C) 1. How often do you have a drink containing alcohol?: Never Total Score: 0 Score Reviewed/Action Taken: Yes LAMBERTO-7 AMB Questionnaire LAMBERTO-7 Date LAMBERTO - 7 assessed: 11/14/24 Feeling nervous, anxious, or on edge: 3 = Nearly every day Not being able to stop or control worryin = Nearly every day Worrying too much about different things: 3 = Nearly every day Trouble relaxin = Nearly every day Being so restless that it is hard to sit still: 3 = Nearly every day Becoming easily annoyed or irritable: 3 = Nearly every day Feeling afraid as if something awful might happen: 3 = Nearly every day Total LAMBERTO-7 score (0-4 normal; 5-9 mild; 10-14 moderate; 15-21 severe): 21 Source: Developed by Drs. Arnoldo Carreno, Dyan Edwards, Alvarez Jose and colleagues, with an educational shanna from [employer]. LAMBERTO-7 Assessment Billing LAMBERTO-7 Assessment Tool: LAMBERTO-7 Assessment 31458 Review of Systems Const Denies chills, Denies fatigue, Denies fever(s), Denies headache(s) and Denies weakness Eyes Denies change in vision ENT Denies dizziness, Denies headache(s), Denies hearing loss, Denies nasal congestion, Denies sinus pain, Denies sinus pressure and Denies sore throat Card Denies chest pain, Denies lightheadedness, Denies dyspnea and Denies other (palpitations) Resp Denies cough, Denies dyspnea and Denies wheezing GI Denies abdominal pain, Denies melena, Denies hematochezia, Denies change in bowel habits, Denies dyspepsia and Denies nausea Denies hematuria and Denies dysuria Musc Denies abnormal gait, Denies myalgias, Denies arthralgias, Denies numbness and Denies tingling Skin/Breast Denies rash, Denies unusual bruising and Denies wounds Neuro Denies abnormal gait, Denies dizziness, Denies headache(s), Denies memory loss, Denies numbness, Denies Sensory deficit (Neuro), Denies tingling and Denies weakness Psych Denies anxiety, Denies depression and Denies memory loss Endo Denies cold intolerance, Denies fatigue, Denies heat intolerance, Denies polydipsia and Denies polyuria Ludin/Lymph Denies easy bleeding and Denies easy bruising Aller/Immun Denies wheezing Physical exam (Primary Care) Vital Signs: Last Vital Signs Temp 98.0 F 11/14/24 09:05 Pulse 81 11/14/24 09:05 Resp 14 11/14/24 09:05 BP 110/70 11/14/24 09:05 Pulse Ox 99 11/14/24 09:05 Oxygen Delivery Method Room Air 11/14/24 09:05 BMI result Body Mass Index 41.1 Tobacco/Smoking Status: Tobacco use Status Tobacco use date assessed 11/14/24 11/14/24 09:07 Patient Tobacco Use Status Former Tobacco user 11/14/24 09:07 e-Cigarette/Vaping Use Never Used 11/14/24 09:07 PHQ-9: PHQ-9 Score PHQ-9: Total score 27 11/14/24 09:07 Depression Screening Interpretation: Positive Thrive Assessment: Date of Thrive Assessment Date Thrive assessed 11/14/24 11/14/24 09:07 Currently or been in a relationship where the following occur: No concerns reported Const General: no acute distress, well developed, alert and awake Nutritional Appearance: well nourished and obese morbidly obese Orientation/consciousness: patient oriented x3 HENMT Head: Yes normocephalic and Yes atraumatic Ears: hearing grossly normal bilaterally and TM's normal bilaterally General nose exam: Normal external nose present and Normal nares present Mouth: Normal oral and palatal mucosa present and moist mucous membranes Teeth and gingiva: dentition normal Throat: Yes posterior oropharynx normal Eyes General: appearance normal, both eyes and all related structures Pupils: Equal, round and reactive pupils present and Pupil accommodation reflex normal EOM: EOMs intact bilaterally Neck Neck: Yes normal visual inspection, Yes no lymphadenopathy and Yes trachea midline Thyroid: Thyroid normal Carotids: no bruits Lymphatic: no lymphadenopathy noted Chest Chest palpation & inspection: normal inspection of the chest Resp Effort & Inspection: normal respiratory effort Auscultation: clear to auscultation bilaterally Cardio Rate: regular rate Rhythm: regular rhythm Heart sounds: S1 normal heart sound present, S2 normal heart sound present, no gallops, no murmurs and no rubs Bruits: no abdominal aortic bruits and no carotid bruits GI Palpation (GI): No Abdominal aortic bruit present, Soft to palpation, nontender, No hepatosplenomegaly present and No Rebound tenderness present Auscultation: normal bowel sounds General: Yes no CVA tenderness Back/Spine/Pelvis Back: no CVA tenderness Cervical Spine: cervical ROM normal and No Cervical spine tenderness Thoracic/Lumbar Spine: thoraco-lumbar ROM normal, No pain with thoraco-lumbar ROM, No thoracic spinal tenderness and No lumbar spinal tenderness Skin Lesions: no lesions Rashes: no rashes Trauma: no lacerations or abrasions Wounds: no wounds Nails: normal Neuro General: patient oriented x3 Cranial nerves: Yes Equal, round and reactive pupils present Cognition (Neuro): normal cognition Gait exam (Neuro): Normal gait present Motor exam (neuro): 5/5 motor strength present throughout Sensory Exam: No Sensory deficit (Neuro) Deep tendon reflexes (DTR's): Right patellar reflex intensity grade: 2+ and Left patellar reflex intensity grade: 2+ Extrem General: Yes normal to inspection and No edema Psych Appearance: grossly normal Affect: normal affect Attitude: cooperative Thought process: Normal thought process present Coding Level of Care Code Est Pt Level 4 (28567) Diagnoses Adult general medical exam Z00.00 Coronary artery disease I25.10 Hypertension I10 Elevated liver enzymes R74.8 Diabetes E11.9 Hyperlipidemia E78.5 Screening for colon cancer Z12.11 Screening for prostate cancer Z12.5 Additional Codes LAMBERTO-7 Assessment Billing - LAMBERTO-7 Assessment Tool: LAMBERTO-7 Assessment 57236 ([id number]) PHQ-9 - 14839 - PHQ-9 Billing: Yes ([id number]) Assessment & Plan Assessment & Plan (1) Adult general medical exam: Code(s): Z00.00 - Encounter for general adult medical examination without abnormal findings Category: Medical Plan: 49-year-old?male?presents?for?complete?physical?exam Encouraged?healthy?diet?with?lifestyle?and?plenty?of?exercise?as?tolerated (2) Coronary artery disease: Code(s): I25.10 - Atherosclerotic heart disease of kaw coronary artery without angina pectoris Category: Medical Plan: History?of?coronary?artery?disease. Followed?by?cardiology. He?is?on?rosuvastatin Will?also?start?GLP1 med. Has?appointment?with?cardiology?tomorrow (3) Hypertension: Code(s): I10 - Essential (primary) hypertension Category: Medical Plan: Blood?pressure?is?controlled.??Goal?is?less?than?130/80 Continue?current?medication?regimen (4) Elevated liver enzymes: Code(s): R74.8 - Abnormal levels of other serum enzymes Category: Medical Plan: Mildly?elevated?liver?enzymes. Work?on?weight?loss?good?hydration. (5) Diabetes: Code(s): E11.9 - Type 2 diabetes mellitus without complications Category: Medical Plan: Fasting?blood?sugars?are?high He?is?taking?metformin?as?prescribed Will?start?Mounjaro Follow-up?in?a?month (6) Hyperlipidemia: Code(s): E78.5 - Hyperlipidemia, unspecified Category: Medical Plan: LDL?is?at?goal?of?less?than?70. Continue?rosuvastatin Encouraged?exercise (7) Screening for colon cancer: Code(s): Z12.11 - Encounter for screening for malignant neoplasm of colon Category: Medical Plan: Patient?has?never?had?a?colonoscopy Refer?to?Gastroenterology (8) Screening for prostate cancer: Code(s): Z12.5 - Encounter for screening for malignant neoplasm of prostate Category: Medical Plan: PSA?was?within?normal?range Will?continue?annual?screening Orders: Referrals Gastroenterology Referral Z12.11 - Encounter for screening for malignant neoplasm of colon Medications: New tirzepatide (Mounjaro) for 4 weeks 2.5 mg (0.5 mL) subcut QWEEK 2 mL 3RF 28 days E11.9 - Type 2 diabetes mellitus without complications, E66.01 - Morbid (severe) obesity due to excess calories, G47.33 - Obstructive sleep apnea (adult) (pediatric), I25.10 - Atherosclerotic heart disease of kaw coronary artery without angina pectoris, Z99.89 - Dependence on other enabling machines and devices furosemide 10 mg (1/2 x 20 mg) PO QAM 15 tabs 0RF 30 days
--- OUTSIDE RECORDS SUMMARY | 2024-11-14 09:02 | XMS_ITS | Data Portability ---
Author Organization [place] - [facility], [facility] Address [address] [place] [phone] Assessment No assessment recorded. Plan of Treatment Reminders Order Date Submit Date Provider Last Modified By Organization Details Last Modified Time Details Appointments None recorded. Lab None recorded. 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 2023 024 2 [facility], [address], [place], [address], 4 12:21:10 Procedures None recorded. 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 Procedures Surgical History Date Name Laterality Status Provider Name and Address Organization Details Recorded Time 01/20/2024 FFL_RE completed BERNARDA BELL MD 100 [facility] 100, [place], [address], [facility] 01/20/2024 09:14:05 Imaging Results Imaging Date Name Status LastModified by Organiz ation Details LastModified Time 10/01/2023 MRI, brain, w/o contrast completed [facility] Information not available 01/22/2024 09:27:19 Procedure [...] Updated DateTime 01/20/2024 182.88 cm 35.3 kg/m2 230900.02 g Kat Major [place] - [facility] 01/20/2024 09:04:31 Social History None recorded. Functional Status None recorded. Mental Status None recorded. Family History Nothing Reported. Medical History No medical history recorded. Past Encounters Encounter ID Performer Location Encounter Start Date Encounter Closed Date Diagnosis/Indication Diagnosis SNOMED-CT Code Diagnosis ICD10 Code Diagnosis Note [id number] BERNARDA BELL MD [facility] [address] [phone] 01/20/2024 08:46:56 01/20/2024 09:20:43 Dysphagia 27770438 R13.10 Laryngosco py was normal. Mild. Recommend small bites and washing down with fluid and to call if it worsens. 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 BERNARDA BELL MD [address] [place] [address], [phone], [facility] - [facility] 01/20/2024 09:23:32
--- OUTSIDE RECORDS SUMMARY | 2024-11-14 09:02 | XMS_ITS | Clinical Summary ---
Author Organization 175 [facility] Address 175 [place] [address] Phone Care Team Providers Care Running Instructor Name Role Phone Leland Trujillo MD Primary [...] 9:15 AM EDT Office Visit Orthopedic Surgery [address] [phone] Joe Diaz DPM Controlled type 2 diabetes with neuropathy ([facility] V24, [facility] V28) (Primary Dx); Lumbosacral radiculopathy; Arthritis of both feet; Dermatophytosis, nail 08/31/2024 1:30 PM EST Office Visit Orthopedic [place] [phone] [address] Joe Diaz DPM Controlled type 2 diabetes with neuropathy ([facility] V24, [facility] V28) (Primary Dx); Lumbosacral radiculopathy; Arthritis of both feet; Dermatophytosis, nail from Last 3 Months Immunizations Name Administration Dates Next Due Moderna SARS-CoV-2 COVID-19, mRNA, LNP-S, preservative free 12/01/2020,11/03/2020 Medical History Medical History Date Comments Diabetes mellitus (CMS/[facility] V24, [facility] V28) DX:Diabetes mellitus (HCC) Heart attack (CMS/HCC V24, CMS/[facility] V28) DX:Heart attack (HCC) Mixed hyperlipidemia DX:Mixed [...] AM EDT Office Visit Orthopedic Surgery - [place] [address] [address] Joe Diaz, DPAshish [address] [address] Health Maintenance Due Date Last Done Comments [...] Final Result * Hemoglobin A1c (06/29/2021) Pathologist [facility] Hemoglobin A1C 0.0 % Comment:abstracted, no inter pretation Blood Venous blood specimen / Unknown [facility] Provider LAB BLOOD ORDERABLES Rebeca l Result * Lipid panel (06/29/2021) Pathologist [facility] LDL/HDL Ratio 0 Comment:abstracted, no inter pretation Triglycerides 0 mg/dL Comment:abstracted, no inter pretation Cholesterol 0 mg/dL Comment:abstracted, no inter pretation HDL 0 mg/dL Comment:abstracted, no inter pretation LDL Cholesterol 0.0 mg/dL Comment:abstracted, no inter pretation Blood Venous blood specimen / Unknown Result [facility] Provider LAB BLOOD ORDERABLES Rebeca l Result * Hepatitis C Screening (09/01/2020) Pathologist [facility] Hepatitis C Screening abstracted [facility] Provider HEALTH MAINTENANCE Final Result * Urine Albumin Creatinine Ratio (02/03/2020) Pathologist [facility] Urine Albumin Creatinine Ratio abstracted [facility] Provider HEALTH MAINTENANCE Final Result from Last 3 Months or Most Recently Relevant to Health Maintenance Insurance [facility] [employer] Care Teams Running Instructor Relationship Specialty Start Date End Date Leland Trujillo MD [address] [place] [address] Dr Michelle [place] PCP - General 05/09/22
[2024-11-14 09:05] VITALS: BP 110/70; PULSE 81; RESP 14; TEMP 36.7; O2SAT 99; BMI 41.1
== END 2024-11-14 09:28 | disposition home or self-care (01) ==
LOC: HO.HMCFM 08:51
PROVIDERS: PCP Family Medicine; Visit Provider Family Medicine
DX: Z00.00 Encounter for general adult medical examination without abnormal findings (principal); I25.10 Atherosclerotic heart disease of native coronary artery without angina pectoris; I10 Essential (primary) hypertension; R74.8 Abnormal levels of other serum enzymes; E11.9 Type 2 diabetes mellitus without complications; E78.5 Hyperlipidemia, unspecified; Z12.11 Encounter for screening for malignant neoplasm of colon; Z12.5 Encounter for screening for malignant neoplasm of prostate

== ENCOUNTER → 2024-11-14 08:50 | Outpatient (BNVA) | payer OTHER, SELFPAY | PROVIDERS: PCP Family Medicine; Visit Provider Family Medicine | DX: Z00.00 Encounter for general adult medical examination without abnormal findings (principal); I25.10 Atherosclerotic heart disease of native coronary artery without angina pectoris; I10 Essential (primary) hypertension; R74.8 Abnormal levels of other serum enzymes; E11.9 Type 2 diabetes mellitus without complications; E78.5 Hyperlipidemia, unspecified; Z79.84 Long term (current) use of oral hypoglycemic drugs; Z79.899 Other long term (current) drug therapy | CPT/HCPCS: 96127; 99212 ==

== ENCOUNTER 2024-11-15 06:33 | Outpatient (REF) | payer OTHER, SELFPAY ==
--- NOTE | ~2024-11-15 | FL_ITS ---
EXAMINATION: XR FLUOROSCOPY WITH IMAGES CLINICAL INFORMATION: Bilateral SI joint injection for pain management. COMPARISON: None available. TECHNIQUE: Fluoroscopy provided to: Dr. Smith Fluoroscopy time: 0.2 minutes DAP: 0.0805 mGycm2 Images: 2 FINDINGS: 2 images obtained during SI joint pain management injection. Please refer to the full operative report for details. FL/FL guidance in treatment room IMPRESSION: Fluoroscopic guidance. Electronically signed by: Jose Meyer MD 11/16/2024 12:18 PM EDT
--- OUTSIDE RECORDS SUMMARY | 2024-11-15 06:36 | XMS_ITS | Clinical Summary ---
Author Organization 175 [facility] Address 175 [place] [address] Phone Care Team Providers Care Supervisor Special Services Name Role Phone Leland Trujillo MD Primary [...] 9:15 AM EDT Office Visit Orthopedic Surgery [address] [phone] Joe Diaz DPM Controlled type 2 diabetes with neuropathy ([facility] V24, [facility] V28) (Primary Dx); Lumbosacral radiculopathy; Arthritis of both feet; Dermatophytosis, nail 08/31/2024 1:30 PM EST Office Visit Orthopedic [place] [address] [phone] Joe Diaz DPM Controlled type 2 diabetes with neuropathy ([facility] V24, [facility] V28) (Primary Dx); Lumbosacral radiculopathy; Arthritis of both feet; Dermatophytosis, nail from Last 3 Months Immunizations Name Administration Dates Next Due Moderna SARS-CoV-2 COVID-19, mRNA, LNP-S, preservative free 12/01/2020,11/03/2020 Medical History Medical History Date Comments Diabetes mellitus ([facility] V24, [facility] V28) DX:Diabetes mellitus (HCC) Heart attack (CMS/HCC V24, [facility] V28) DX:Heart attack (HCC) Mixed hyperlipidemia DX:Mixed [...] AM EDT Office Visit Orthopedic Surgery - [place] [address] [phone] Joe Diaz, DPAshish [address] [address] Health Maintenance Due Date Last Done Comments [...] pretation Blood Venous blood specimen / Unknown [facility] Provider LAB BLOOD ORDERABLES Rebeca l Result * Lipid panel (06/29/2021) Pathologist [facility] LDL/HDL Ratio 0 Comment:abstracted, no inter pretation Triglycerides 0 mg/dL Comment:abstracted, no inter pretation Cholesterol 0 mg/dL Comment:abstracted, no inter pretation HDL 0 mg/dL Comment:abstracted, no inter pretation LDL Cholesterol 0.0 mg/dL Comment:abstracted, no inter pretation Blood Venous blood specimen / Unknown Result [facility] Provider LAB BLOOD ORDERABLES Rebeca l Result * Hepatitis C Screening (09/01/2020) Pathologist [facility] Hepatitis C Screening abstracted [facility] Provider HEALTH MAINTENANCE Final Result * Urine Albumin Creatinine Ratio (02/03/2020) Pathologist [facility] Urine Albumin Creatinine Ratio abstracted [facility] Provider HEALTH MAINTENANCE Final Result from Last 3 Months or Most Recently Relevant to Health Maintenance Insurance [facility] [employer] Care Teams Supervisor Special Services Relationship Specialty Start Date End Date Leland Trujillo MD [address] [place] [address] Dr Michelle [place] PCP - General 05/09/22
== END 2024-11-15 06:34 | disposition home or self-care (01) ==
LOC: CF 06:33
PROVIDERS: Visit Provider Anesthesiology
DX: M53.3 Sacrococcygeal disorders, not elsewhere classified (principal)
CPT/HCPCS: 27096; 93005; 99212; J2003; J2795; Q9967

== ENCOUNTER 2024-11-15 11:04 | Outpatient (AMB) | payer OTHER, SELFPAY ==
--- NOTE | 2024-11-15 11:18 | MHC.OFFVIS ---
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 Accompanied by: Self / Same As Patient Allergies erythromycin base Allergy (Mild, Verified 11/14/24 08:59) Confusion clonidine Adverse Reaction (Severe, Verified 11/14/24 08:59) Vomiting Medication List - Last Reconciled 11/15/24 by Pk Ash MD amitriptyline 50 mg PO BEDTIME amlodipine 10 mg PO DAILY 90 days aripiprazole 5 mg PO DAILY 90 days aspirin (Adult Low Dose Aspirin) 81 mg PO DAILY 90 days bupropion HCl XL 150 mg PO QAM 90 days bupropion HCl XL 300 mg PO DAILY 90 days carvedilol 25 mg PO Q12H 90 days cholecalciferol (vitamin D3) 25 mcg PO DAILY 90 days clotrimazole 1% 1 appl topical BID 2 weeks cyanocobalamin (vitamin B-12) 1,000 mcg PO DAILY 90 days duloxetine 30 mg PO DAILY 90 days escitalopram oxalate 5 mg PO DAILY furosemide 10 mg (1/2 x 20 mg) PO QAM 30 days gabapentin 300 mg PO TID 30 days hydroxyzine HCl 25 mg PO TID indomethacin 25 mg PO BID 30 days ipratropium-albuterol 20-100 mcg/actuation (Combivent Respimat) 1 puff inhalation Q6H PRN isosorbide mononitrate ER 30 mg PO DAILY 90 days ketorolac 10 mg PO Q6H PRN loratadine 10 mg PO DAILY 90 days metformin 500 mg PO BID 90 days methocarbamol 1,500 mg (2 x 750 mg) PO Q8H PRN morphine 15 mg PO Q6H PRN omeprazole 20 mg PO BID 90 days ondansetron 4 mg PO Q8H PRN pramipexole 0.5 mg PO BEDTIME 30 days pyridoxine (vitamin B6) 50 mg PO DAILY 90 days rosuvastatin 40 mg PO DAILY 90 days tamsulosin 0.4 mg PO DAILY tirzepatide (Mounjaro) 2.5 mg (0.5 mL) subcut QWEEK 28 days topiramate 300 mg PO DAILY triamcinolone acetonide 0.1% 1 appl topical DAILY 30 days umeclidinium-vilanterol 62.5-25 mcg/actuation (Anoro Ellipta) 1 inh inhalation Q24H 30 days HPI Comments Details: Mina comes for follow-up. He has been doing well from cardiac perspective. Recently had a fall and subsequently had rib fracture had chest pain. Was told that this was musculoskeletal in appears clinically to be musculoskeletal. Takes all his medications. Blood pressures been well controlled. Denies any significant shortness of breath, orthopnea, PND. Has been started on Mounjaro for weight loss. Tolerating well. Most recent LDL was 57 mg/dL. No exertional chest pain. [facility] Medical History Screening for prostate cancer Screening for colon cancer Adult general medical exam Laboratory exam ordered as part of routine general medical examination Imbalance Left-sided chest wall pain Dizziness Fatigue Unsteady gait Yeast infection of the skin Cough Abnormal lung sounds Abnormal CT lung screening Headache Puncture wound of scalp Left knee pain Sacroiliitis Osteoarthritis of knee Infection of skin Exposure to potential infection Urinary hesitancy Difficulty swallowing Decreased visual acuity Low vitamin B12 level Obesity (BMI 30-39.9) Morbid obesity Elevated fasting glucose Chest discomfort COPD (chronic obstructive pulmonary disease) KELSY on CPAP Torn rotator cuff Diabetes High cholesterol Hypertension Surgical History Stented coronary artery History of carpal tunnel surgery Family History Other Mental health disorder Substance abuse Social History Housing: House Alcohol intake: never Patient Tobacco Use Status: Former Tobacco user e-Cigarette/Vaping Use: Never Used Second Hand Smoke Exposure: No service: No Current occupational status: unemployed Current occupational exposures/hazards: No Cognitive needs: No Hearing needs: No Vision needs: Yes Review of Systems Const Denies chills, Denies fatigue, Denies fever(s), Denies frequent falls, Denies weakness, Denies weight gain and Denies weight loss ENT Denies dizziness Card Denies chest pain, Denies leg edema, Denies lightheadedness, Denies palpitations, Denies dyspnea and Denies dyspnea on exertion Resp Denies cough, Denies dyspnea and Denies dyspnea on exertion GI Denies hematochezia Musc Denies abnormal gait, Denies muscle weakness, Denies numbness, Denies radiating pain into limb and Denies tingling Neuro Denies abnormal gait, Denies dizziness, Denies frequent falls, Denies numbness, Denies tingling and Denies weakness Endo Denies fatigue and Denies palpitations Physical Exam Vital Signs: Last Vital Signs Pulse 72 11/15/24 11:20 BP 130/70 11/15/24 11:20 BMI result Body Mass Index 40.7 Const General: comfortable and no acute distress Orientation/consciousness: patient oriented x3 Neck Neck: Yes normal visual inspection Resp Effort & Inspection: normal respiratory effort Auscultation: clear to auscultation bilaterally, no crackles, no rales, no rhonchi and no wheezes Cardio Jugular venous distension: no JVD Rate: regular rate Rhythm: regular rhythm Heart sounds: S1 normal heart sound present, S2 normal heart sound present, no murmurs and no rubs Neuro General: patient oriented x3 Extrem General: Yes normal to inspection Psych Appearance: grossly normal Mental Status: mental status grossly normal Speech and movement: Normal speech and movement present Office Procedures EKG Details: EKG shows normal sinus rhythm with first-degree AV block with normal EKG [id number], Complete Assessment & Plan Assessment & Plan (1) Coronary artery disease: Code(s): I25.10 - Atherosclerotic heart disease of hughes coronary artery without angina pectoris Category: Medical Plan: CAD with prior drug-eluting stent to LAD for acute coronary syndrome. Currently not having any symptoms of angina. Continue lifelong aspirin therapy. Continue aggressive risk factor modification. LDL is well optimized on high-intensity statin therapy. Importance of medical therapy was discussed. Continue aggressive diabetes management goal hemoglobin A1c less than 7%. Continue participate in weight loss program which she is pursuing. (2) Hypertension: Code(s): I10 - Essential (primary) hypertension Category: Medical Plan: Hypertension which is currently well optimized advised to monitor blood pressure at home maintain a log. Goal blood pressure less than 130/84. Low-salt diet was discussed. Encouraged to maintain activity level as tolerated. Will follow up in the clinic in 1 year's time, sooner p.r.n.. Thank you for allowing me to partake in his care Coding Level of Care Code Est Pt Level 4 (15474) Complex EM visit Add On G2211 Diagnoses Coronary artery disease I25.10 Hypertension I10 CPT Codes EKG - CPT: 45364-[id number], Complete ([id number])
[2024-11-15 11:20] VITALS: BP 130/70; PULSE 72; BMI 40.7
--- OUTSIDE RECORDS SUMMARY | 2024-11-15 13:17 | XMS_ITS | Data Portability ---
Author Organization [place] - [facility], [facility] Address [address] [place] [id number] Assessment No assessment recorded. Plan of Treatment Reminders Order Date Submit Date Provider Last Modified By Organization Details Last Modified Time Details Appointments None recorded. Lab None recorded. 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 2023 024 [email or web address] 2 [facility], [address], [place], [address], 4 12:21:10 Procedures None recorded. 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 Procedures Surgical History Date Name Laterality Status Provider Name and Address Organization Details Recorded Time 01/20/2024 FFL_RE completed BERNARDA BELL MD 100 [facility] 100, [place], [address], [facility] 01/20/2024 09:14:05 Imaging Results Imaging Date Name Status LastModified by Organiz ation Details LastModified Time 10/01/2023 MRI, brain, w/o contrast [facility] Information not available 01/22/2024 09:27:19 Procedure Notes [...] Updated DateTime 01/20/2024 182.88 cm 35.3 kg/m2 808234.02 g Kat Major [place] - [facility] 01/20/2024 09:04:31 Social History None recorded. Functional Status None recorded. Mental Status None recorded. Family History Nothing Reported. Medical History No medical history recorded. Past Encounters Encounter ID Performer Location Encounter Start Date Encounter Closed Date Diagnosis/Indication Diagnosis SNOMED-CT Code Diagnosis ICD10 Code Diagnosis Note [id number] BERNARDA BELL MD [facility] [address] [address] 01/20/2024 08:46:56 01/20/2024 09:20:43 Dysphagia 29568038 R13.10 Laryngosco py was normal. Mild. Recommend small bites and washing down with fluid and to call if it worsens. 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 BERNARDA BELL MD [address] [place] [address], [phone], [facility] - [facility] 01/20/2024 09:23:32
--- OUTSIDE RECORDS SUMMARY | 2024-11-15 13:17 | XMS_ITS | Clinical Summary ---
Author Organization 175 [facility] Address 175 [place] [address] Phone Care Team Providers Care Cloth Presser Name Role Phone Leland Trujillo MD Primary [...] 9:15 AM EDT Office Visit Orthopedic Surgery [address] [address] Joe Diaz DPM Controlled type 2 diabetes with neuropathy ([facility] V24, [facility] V28) (Primary Dx); Lumbosacral radiculopathy; Arthritis of both feet; Dermatophytosis, nail 08/31/2024 1:30 PM EST Office Visit Orthopedic [place] [address] [address] Joe Diaz DPM Controlled type 2 diabetes with neuropathy ([facility] V24, [facility] V28) (Primary Dx); Lumbosacral radiculopathy; Arthritis of both feet; Dermatophytosis, nail from Last 3 Months Immunizations Name Administration Dates Next Due Moderna SARS-CoV-2 COVID-19, mRNA, LNP-S, preservative free 12/01/2020,11/03/2020 Medical History Medical History Date Comments Diabetes mellitus (CMS/[facility] V24, [facility] V28) DX:Diabetes mellitus (HCC) Heart [...] AM EDT Office Visit Orthopedic Surgery - [place] [address] [address] Joe Diaz, DPAshish [address] [address] Health Maintenance Due Date Last Done Comments [...] Final Result * Hemoglobin A1c (06/29/2021) Pathologist [facility] Hemoglobin A1C 0.0 % Comment:abstracted, no inter pretation Blood Venous blood specimen / Unknown [facility] Provider LAB BLOOD ORDERABLES Rebeca l Result * Lipid panel (06/29/2021) Pathologist [facility] LDL/HDL Ratio 0 Comment:abstracted, no inter pretation Triglycerides 0 mg/dL Comment:abstracted, no inter pretation Cholesterol 0 mg/dL Comment:abstracted, no inter pretation HDL 0 mg/dL Comment:abstracted, no inter pretation LDL Cholesterol 0.0 mg/dL Comment:abstracted, no inter pretation Blood Venous blood specimen / Unknown Result [facility] Provider LAB BLOOD ORDERABLES Rebeca l Result * Hepatitis C Screening (09/01/2020) Pathologist [facility] Hepatitis C Screening abstracted [facility] Provider HEALTH MAINTENANCE Final Result * Urine Albumin Creatinine Ratio (02/03/2020) Pathologist [facility] Urine Albumin Creatinine Ratio abstracted [facility] Provider HEALTH MAINTENANCE Final Result from Last 3 Months or Most Recently Relevant to Health Maintenance Insurance [facility] Care Teams Cloth Presser Relationship Specialty Start Date End Date Leland Trujillo MD [address] [place] [address] Dr Michelle [place] PCP - General 05/09/22
== END 2024-11-15 11:40 | disposition home or self-care (01) ==
LOC: HO.HCS 11:05
PROVIDERS: PCP Family Medicine; Visit Provider Internal Medicine Cardiovascular Disease
DX: I25.10 Atherosclerotic heart disease of native coronary artery without angina pectoris (principal); I10 Essential (primary) hypertension
CPT/HCPCS: 93010; 99214; G2211

== ENCOUNTER 2024-11-15 11:49 | Outpatient (AMB) | payer OTHER, SELFPAY ==
[2024-11-15 12:40] VITALS: BP 127/81; PULSE 73; RESP 16; O2SAT 99
--- NOTE | 2024-11-15 12:40 | MHC.OFFVIS ---
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 Allergies erythromycin base Allergy (Mild, Verified 11/15/24 12:41) Confusion clonidine Adverse Reaction (Severe, Verified 11/15/24 12:41) Vomiting Medication List - Last Reconciled 11/15/24 by Clarice Black LPN amitriptyline 50 mg PO BEDTIME amlodipine 10 mg PO DAILY 90 days aripiprazole 5 mg PO DAILY 90 days aspirin (Adult Low Dose Aspirin) 81 mg PO DAILY 90 days bupropion HCl XL 150 mg PO QAM 90 days bupropion HCl XL 300 mg PO DAILY 90 days carvedilol 25 mg PO Q12H 90 days cholecalciferol (vitamin D3) 25 mcg PO DAILY 90 days clotrimazole 1% 1 appl topical BID 2 weeks cyanocobalamin (vitamin B-12) 1,000 mcg PO DAILY 90 days duloxetine 30 mg PO DAILY 90 days escitalopram oxalate 5 mg PO DAILY furosemide 10 mg (1/2 x 20 mg) PO QAM 30 days gabapentin 300 mg PO TID 30 days hydroxyzine HCl 25 mg PO TID indomethacin 25 mg PO BID 30 days ipratropium-albuterol 20-100 mcg/actuation (Combivent Respimat) 1 puff inhalation Q6H PRN isosorbide mononitrate ER 30 mg PO DAILY 90 days ketorolac 10 mg PO Q6H PRN loratadine 10 mg PO DAILY 90 days metformin 500 mg PO BID 90 days methocarbamol 1,500 mg (2 x 750 mg) PO Q8H PRN morphine 15 mg PO Q6H PRN omeprazole 20 mg PO BID 90 days ondansetron 4 mg PO Q8H PRN pramipexole 0.5 mg PO BEDTIME 30 days pyridoxine (vitamin B6) 50 mg PO DAILY 90 days rosuvastatin 40 mg PO DAILY 90 days tamsulosin 0.4 mg PO DAILY tirzepatide (Mounjaro) 2.5 mg (0.5 mL) subcut QWEEK 28 days topiramate 300 mg PO DAILY triamcinolone acetonide 0.1% 1 appl topical DAILY 30 days umeclidinium-vilanterol 62.5-25 mcg/actuation (Anoro Ellipta) 1 inh inhalation Q24H 30 days PFSH Medical History Screening for prostate cancer Screening for colon cancer Adult general medical exam Laboratory exam ordered as part of routine general medical examination Imbalance Left-sided chest wall pain Dizziness Fatigue Unsteady gait Yeast infection of the skin Cough Abnormal lung sounds Abnormal CT lung screening Headache Puncture wound of scalp Left knee pain Sacroiliitis Osteoarthritis of knee Infection of skin Exposure to potential infection Urinary hesitancy Difficulty swallowing Decreased visual acuity Low vitamin B12 level Obesity (BMI 30-39.9) Morbid obesity Elevated fasting glucose Chest discomfort COPD (chronic obstructive pulmonary disease) KELSY on CPAP Torn rotator cuff Diabetes High cholesterol Hypertension Surgical History Stented coronary artery History of carpal tunnel surgery Family History Other Mental health disorder Substance abuse Social History Housing: House Alcohol intake: never Patient Tobacco Use Status: Former Tobacco user e-Cigarette/Vaping Use: Never Used Second Hand Smoke Exposure: No service: No Current occupational status: unemployed Current occupational exposures/hazards: No Cognitive needs: No Hearing needs: No Vision needs: Yes Physical Exam Vital Signs: Last Vital Signs Pulse 79 11/15/24 13:00 Resp 16 11/15/24 13:00 BP 136/72 11/15/24 13:00 Pulse Ox 98 11/15/24 13:00 Oxygen Delivery Method Room Air 11/15/24 13:00 Assessment & Plan Assessment & Plan (1) Sacroiliac joint dysfunction of both sides: Code(s): M53.3 - Sacrococcygeal disorders, not elsewhere classified Category: Medical (2) Chronic pain syndrome: Code(s): G89.4 - Chronic pain syndrome Category: Medical Plan Bilateral sacroiliac joint injection therapeutic . Informed consent was thoroughly explained to the patient before the procedure.? The patient came to the operating room.? He was positioned prone on operating table with a pillow under her abdomen.? Time-out was performed delineating correct site and side of the procedure, nature of the injection, name and date of of the patient. The lower back and upper buttocks of the patient was prepped with ChloraPrep and draped with sterile utility towels.? C-arm was brought over the operating field and picture of right sacroiliac joint was demonstrated on the screen. Tilting machine contralateral left 15 degrees from the midline the anterior portion of the silhouette of the joint was superimposed on posterior portion of the silhouette of the joint. The skin was anesthetized with mixture of ropivacaine 0.5% and lidocaine 2% one-to-one slightly medial to the silhouette of the sacroiliac joint. 22 gauge 3-1/2 inch spinal needle was inserted through the skin wheal and advanced to the sacroiliac joint. When tip of the needle entered the sacroiliac joint injection of the contrast performed delineating arthrogram. After that 4 cc of ropivacaine mixed with kenalog 20mg was injected into the joint. Upon completion of the injection needle was removed and the procedure was repeated on the left side in the mirroring fashion. Total dose of Kenalog was 40 mg. After the injection the needle was removed and sterile bandades were applied Patient tolerated the procedure well. Orders: Orders FL guidance in treatment room Today M53.3 - Sacrococcygeal disorders, not elsewhere classified Coding Level of Care Code Procedure Only Diagnoses Sacroiliac joint dysfunction of both sides M53.3 Chronic pain syndrome G89.4
[2024-11-15 13:00] VITALS: BP 136/72; PULSE 79; RESP 16; O2SAT 98
--- OUTSIDE RECORDS SUMMARY | 2024-11-15 14:18 | XMS_ITS | Clinical Summary ---
Author Organization 175 [facility] Address 175 [place] [address] Phone Care Team Providers Care Database Tester Name Role Phone Leland Trujillo MD Primary [...] 9:15 AM EDT Office Visit Orthopedic Surgery [address] [address] Joe Diaz DPM Controlled type 2 diabetes with neuropathy ([facility] V24, [facility] V28) (Primary Dx); Lumbosacral radiculopathy; Arthritis of both feet; Dermatophytosis, nail 08/31/2024 1:30 PM EST Office Visit Orthopedic [place] [address] [address] Joe Diaz DPM Controlled type 2 diabetes with neuropathy ([facility] V24, [facility] V28) (Primary Dx); Lumbosacral radiculopathy; Arthritis of both feet; Dermatophytosis, nail from Last 3 Months Immunizations Name Administration Dates Next Due Moderna SARS-CoV-2 COVID-19, mRNA, LNP-S, preservative free 12/01/2020,11/03/2020 Medical History Medical History Date Comments Diabetes mellitus (CMS/[facility] V24, [facility] V28) DX:Diabetes mellitus (HCC) Heart attack (CMS/HCC V24, CMS/[facility] V28) DX:Heart attack (HCC) Mixed [...] AM EDT Office Visit Orthopedic Surgery - [place] [address] [address] Joe Diaz, DPAshish [address] [address] Health Maintenance Due Date Last Done Comments [...] pretation Blood Venous blood specimen / Unknown [facility] Provider LAB BLOOD ORDERABLES Rebeca l Result * Lipid panel (06/29/2021) Pathologist [facility] LDL/HDL Ratio 0 Comment:abstracted, no inter pretation Triglycerides 0 mg/dL Comment:abstracted, no inter pretation Cholesterol 0 mg/dL Comment:abstracted, no inter pretation HDL 0 mg/dL Comment:abstracted, no inter pretation LDL Cholesterol 0.0 mg/dL Comment:abstracted, no inter pretation Blood Venous blood specimen / Unknown Result [facility] Provider LAB BLOOD ORDERABLES Rebeca l Result * Hepatitis C Screening (09/01/2020) Pathologist [facility] Hepatitis C Screening abstracted [facility] Provider HEALTH MAINTENANCE Final Result * Urine Albumin Creatinine Ratio (02/03/2020) Pathologist [facility] Urine Albumin Creatinine Ratio abstracted [facility] Provider HEALTH MAINTENANCE Final Result from Last 3 Months or Most Recently Relevant to Health Maintenance Insurance [facility] HEALTH PLAN Care Teams Database Tester Relationship Specialty Start Date End Date Leland Trujillo MD [address] [place] [address] Dr Michelle [place] PCP - General 05/09/22
== END 2024-11-15 13:10 | disposition home or self-care (01) ==
LOC: HO.PMCPRC 11:49
PROVIDERS: PCP Family Medicine; Visit Provider Anesthesiology
DX: M53.3 Sacrococcygeal disorders, not elsewhere classified (principal); G89.4 Chronic pain syndrome
CPT/HCPCS: 27096

== ENCOUNTER 2024-11-23 08:13 | Outpatient (AMB) | payer OTHER, SELFPAY ==
--- NOTE | 2024-11-23 08:26 | MHC.OFFVIS ---
Vital Signs 11/23/24 08:28 Height 6 ft Weight 296 lb BMI 40.1 BP 116/65 Blood Pressure Location Lt brachial Position Sitting Pulse 74 Pulse Oximetry (%) 99 Oxygen Delivery Method Room Air Intake Visit Reasons: pre colonoscopy/ Dulce Maria 2021 Intake Note: Patient complex follow up for pre colonoscopy/Dulce Maria dian was 05/12/2022.Patient was order a barrium swallow. Patient have barrium swallow x 2, Abdomen/pelvis CT x 3 and also guidance Fluoroscopy result on file. Patient cc: swallowing difficulty and denies any other GI issues. 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 Accompanied by: Self / Same As Patient Allergies erythromycin base Allergy (Mild, Verified 11/23/24 08:23) Confusion clonidine Adverse Reaction (Severe, Verified 11/23/24 08:23) Vomiting Medication List - Last Reconciled 11/23/24 by Annette Sorensen CNP amitriptyline 50 mg PO BEDTIME amlodipine 10 mg PO DAILY 90 days aripiprazole 5 mg PO DAILY 90 days aspirin (Adult Low Dose Aspirin) 81 mg PO DAILY 90 days bupropion HCl XL 150 mg PO QAM 90 days bupropion HCl XL 300 mg PO DAILY 90 days carvedilol 25 mg PO Q12H 90 days cholecalciferol (vitamin D3) 25 mcg PO DAILY 90 days clotrimazole 1% 1 appl topical BID 2 weeks cyanocobalamin (vitamin B-12) 1,000 mcg PO DAILY 90 days duloxetine 30 mg PO DAILY 90 days escitalopram oxalate 5 mg PO DAILY furosemide 10 mg (1/2 x 20 mg) PO QAM 30 days gabapentin 300 mg PO TID 30 days hydroxyzine HCl 25 mg PO TID indomethacin 25 mg PO BID 30 days ipratropium-albuterol 20-100 mcg/actuation (Combivent Respimat) 1 puff inhalation Q6H PRN isosorbide mononitrate ER 30 mg PO DAILY 90 days ketorolac 10 mg PO Q6H PRN loratadine 10 mg PO DAILY 90 days metformin 500 mg PO BID 90 days methocarbamol 1,500 mg (2 x 750 mg) PO Q8H PRN morphine 15 mg PO Q6H PRN omeprazole 20 mg PO BID 90 days ondansetron 4 mg PO Q8H PRN pramipexole 0.5 mg PO BEDTIME 30 days pyridoxine (vitamin B6) 50 mg PO DAILY 90 days rosuvastatin 40 mg PO DAILY 90 days tamsulosin 0.4 mg PO DAILY tirzepatide (Mounjaro) 2.5 mg (0.5 mL) subcut QWEEK 28 days topiramate 300 mg PO DAILY triamcinolone acetonide 0.1% 1 appl topical DAILY 30 days umeclidinium-vilanterol 62.5-25 mcg/actuation (Anoro Ellipta) 1 inh inhalation Q24H 30 days HPI HPI pre colonoscopy/ Dulce Maria 2021: Details: Patient is a 41-year-old male with PMH of hypertension, hyperlipidemia, anxiety with depression, diabetes, migraine, COPD, KELSY, nicotine dependence, CAD and GERD. Last visit with NOBLE Clayton 05/12/2022 for dysphagia. Pt is here today for pre colonoscopy screening and follow up on dysphasia. He shares the dysphasia continues without change in symptoms. States symptoms primarily occur with solids like crackers and sandwich. Reports food will pass easily after consuming liquids. States he can tolerated liquids without difficulty. Shares he is taking small bites. He endorses laying down after eating dinner. He reports GERD symptoms continue approx 1-2x/week, after consuming trigger foods-red or bbq sauce. Will occasionally experience nocturnal regurgitation. He reports taking the omeprazole twice/day. Some times in regards to meals. He reports EGD in [place] approx 5 years ago, unsure of results. Shares he is working to consume more healthy foods. Avoiding fried foods, trying to following a cardiac diet. Shares he consumes 3-4 mountain dew for the caffiene, does consume some water. He reports BM every couple days , type 3 on [place] stool chart Patient denies: fever/chills, n/v, appetite changes, unintentional wt loss, ab pain or melena/hematochezia. Social hx: denies ETOH use denies recreational drug use former smoker, cessation five years ago -family hx maternal great aunt-? breast CA. otherwise family hx unknown -denies personal hx of CA. Does share he is connected ENT through [facility] for management of sinus cyst. Scheduled for surveillance MRI February 2025 -known CAD and hypertension, established with CARDs with recent visit and plan for follow up in one year. -tolerated anesthesia in the past without difficulty. [facility] Medical History (Updated 11/23/24 @ 09:25 by Annette Sorensen CNP) Difficulty swallowing Screening for prostate cancer Screening for colon cancer Adult general medical exam Laboratory exam ordered as part of routine general medical examination Imbalance Left-sided chest wall pain Dizziness Fatigue Unsteady gait Yeast infection of the skin Cough Abnormal lung sounds Abnormal CT lung screening Headache Puncture wound of scalp Left knee pain Sacroiliitis Osteoarthritis of knee Infection of skin Exposure to potential infection Urinary hesitancy Decreased visual acuity Low vitamin B12 level Obesity (BMI 30-39.9) Morbid obesity Elevated fasting glucose Chest discomfort COPD (chronic obstructive pulmonary disease) KELSY on CPAP Torn rotator cuff Diabetes High cholesterol Hypertension Surgical History Stented coronary artery History of carpal tunnel surgery Family History Other Mental health disorder Substance abuse Social History Housing: House Alcohol intake: never Patient Tobacco Use Status: Former Tobacco user e-Cigarette/Vaping Use: Never Used Second Hand Smoke Exposure: No service: No Current occupational status: unemployed Current occupational exposures/hazards: No Cognitive needs: No Hearing needs: No Vision needs: Yes Review of Systems Const Reports as per HPI ENT Reports as per HPI Card Reports as per HPI Resp Reports as per HPI GI Reports as per HPI Reports as per HPI Physical Exam Const General: healthy appearing, no acute distress and well developed Nutritional Appearance: obese Orientation/consciousness: patient oriented x3 HEENT Head: Yes normal to inspection, Yes normocephalic and Yes atraumatic Face and sinus: Yes normal facial exam Eyes General: appearance normal, both eyes and all related structures Neck Neck: Yes normal visual inspection Resp Effort & Inspection: normal respiratory effort, able to speak in complete sentences, no tracheal deviation and symmetric chest movement Auscultation: clear to auscultation bilaterally Cardio Jugular venous distension: no JVD Rate: regular rate Rhythm: regular rhythm Heart sounds: S1 normal heart sound present, S2 normal heart sound present, no gallops and no murmurs GI Inspection: Yes normal to inspection, No distended and Yes obesity Palpation (GI): Soft to palpation, not firm, nontender and No hepatosplenomegaly present Auscultation: normal bowel sounds Skin Other: multiple healing dog scathes to bilateral LE-LLE > RLE Neuro General: patient oriented x3 Gait exam (Neuro): Normal gait present Psych Appearance: grossly normal Mental Status: mental status grossly normal Speech and movement: Normal speech and movement present Affect: normal affect Attitude: cooperative Thought process: Normal thought process present Thought content: Normal thought content present Insight: Good insight present (Psych) Judgement: Good judgement present (Psych) Results Reviewed Results Reviewed: Date of Service: 08/19/23 Procedure(s): FL barium swallow modified Accession Number(s): [id number] cc: Leland Trujillo MD~ EXAMINATION: Modified Barium Swallow CLINICAL INFORMATION: Dysphagia COMPARISON: Barium swallow 03/25/2023. TECHNIQUE: Modified barium swallow was performed under lateral fluoroscopy with patient in standing position. Barium mixed with solids and liquids of varying consistencies was administered by the speech pathologist. The exam was recorded in the fluoroscopy suite. FINDINGS: No laryngeal penetration or aspiration was seen during this examination. Number of Spot Images: 1 lateral spot image hold DOSE AREA PRODUCT: 804.9 uGy-m2 (microgray-meter squared) FL/FL barium swallow modified IMPRESSION: No laryngeal penetration or aspiration was seen during this examination. Refer to the speech therapy report for further clarification Ordering Physician: Dulce Maria Cuellar PA-C Date of Service: 03/25/23 Procedure(s): FL barium swallow with air Accession Number(s): [id number] cc: Dulce Maria Cuellar PA-C~ EXAMINATION: ESOPHAGRAM CLINICAL INFORMATION: Dysphasia. COMPARISON: None available. TECHNIQUE: Esophagram. FINDINGS: There is normal elevation of the soft palate while saying candy. There is normal apposition of the vocal cords while saying E. The patient swallowed thin and thick barium and a half-inch diameter barium tablet without difficulty. No nasopharyngeal reflux or tracheal aspiration. No significant cricopharyngeal hypertrophy. No Zenker's diverticulum is seen. There is some delay in transit while swallowing barium-coated cookie with some residual noted initially within the piriform sinuses. The patient states at that time that this reproduced his findings. Lying prone and drinking there is noted to be hypomotility of the esophagus. No mucosal abnormality is seen. No persistent stricture is noted. No hiatal hernia is seen. No gastroesophageal reflux was elicited during the study, including with water siphon test. FL/FL barium swallow with air IMPRESSION: Esophageal hypomotility as described with some delay in transit of solid food, most prominent in the cervical esophagus Assessment & Plan Assessment & Plan (1) GERD (gastroesophageal reflux disease): Code(s): K21.9 - Gastro-esophageal reflux disease without esophagitis Category: Medical Qualifiers: Esophagitis presence: esophagitis presence not specified Qualified Code(s): K21.9 - Gastro-esophageal reflux disease without esophagitis Plan: Fairly stable with omeprazole 20 mg daily. Encouraged to continue omeprazole as prescribed, taken approximately 30-60 minutes before first meal of the day. Education on GERD prevention-Advised against heavy meals. Encouraged small frequent meals VS large meals, remaining upright after meals x 2-3 hours, avoid late night eating/spicy foods/caffeine/alcohol/known triggers and tight fitting clothes (2) Coronary artery disease: Code(s): I25.10 - Atherosclerotic heart disease of [place] coronary artery without angina pectoris Category: Medical Qualifiers: Coronary Disease-Associated Artery/Lesion type: [place] artery [place] vs. transplanted heart: [place] heart Associated angina: without angina Qualified Code(s): I25.10 - Atherosclerotic heart disease of [place] coronary artery without angina pectoris Plan: Recent cardiology visit with no change in treatment plan. He will continue with life long aspirin therapy. Remains on high intensity statin. He is working with primary care provider for good blood glucose control. (3) Hypertension: Code(s): I10 - Essential (primary) hypertension Category: Medical Qualifiers: Hypertension type: primary hypertension Qualified Code(s): I10 - Essential (primary) hypertension Plan: BP at goal per guidelines. Encouraged to continue medication as prescribed by Cardiology/PCP (4) Difficulty swallowing: Code(s): R13.10 - Dysphagia, unspecified Category: Medical Qualifiers: Dysphagia type: esophageal phase Qualified Code(s): R13.19 - Other dysphagia Plan: Stable since last barium completed July 2023, revealing esophageal hypomotility. He was also evaluated by speech therapy who recommended lifestyle modifications of-small bites, chew food well, alternate each bite of food with sips of liquid, obtained upright positional eating or drinking and for at least 60 minutes afterwards. Reinforced these recommendations. We will also obtain an EGD for further evaluation. (5) Screening for colon cancer: Code(s): Z12.11 - Encounter for screening for malignant neoplasm of colon Category: Medical Plan: Due for index screening colonoscopy. Reviewed prep and procedure expectations. We reviewed the medications that he will not need to hold, written instructions provided. Prep Rx'd to preferred pharmacy. Plan Follow-up after EGD/colonoscopy are sooner as needed Time: I spent a total of 60 minutes on the date of encounter which includes: Preparing to see the patient (reviewed previous documentation, test results and medical history) Performing a medically appropriate exam and/or evaluation Ordering medications, tests, and procedures Documenting clinical information in the health record Medications: New bisacodyl per colonoscopy instructions 5 mg PO ONCE 1 day 4 tabs 0RF polyethylene glycol 3350 (Miralax) per colonoscopy prep instructions 238 grams PO ONCE 238 grams 0RF Coding Level of Care Code New Pt New Pt Level 5 (55906) Patient Type New Diagnoses Gastroesophageal reflux disease, unspecified whether esophagitis present K21.9 Esophagitis presence: esophagitis presence not specified Coronary artery disease involving [place] coronary artery of [place] heart without angina pectoris I25.10 Coronary Disease-Associated Artery/Lesion type: [place] artery [place] vs. transplanted heart: [place] heart Associated angina: without angina Primary hypertension I10 Hypertension type: primary hypertension Esophageal dysphagia R13.19 Dysphagia type: esophageal phase Screening for colon cancer Z12.11
[2024-11-23 08:28] VITALS: BP 116/65; PULSE 74; O2SAT 99; BMI 40.1
--- OUTSIDE RECORDS SUMMARY | 2024-11-23 08:28 | XMS_ITS | Clinical Summary ---
Author Organization 175 [facility] Address 175 [place] [address] Phone Care Team Providers Care Washer Blanket Name Role Phone Leland Trujillo MD Primary [...] 9:15 AM EDT Office Visit Orthopedic Surgery [address] [address] Joe Diaz DPM Controlled type 2 diabetes with neuropathy ([facility] V24, [facility] V28) (Primary Dx); Lumbosacral radiculopathy; Arthritis of both feet; Dermatophytosis, nail 08/31/2024 1:30 PM EST Office Visit Orthopedic [place] [address] [address] Joe Diaz DPM Controlled type 2 diabetes with neuropathy ([facility] V24, [facility] V28) (Primary Dx); Lumbosacral radiculopathy; Arthritis of both feet; Dermatophytosis, nail from Last 3 Months Immunizations Name Administration Dates Next Due Moderna SARS-CoV-2 COVID-19, mRNA, LNP-S, preservative free 12/01/2020,11/03/2020 Medical History Medical History Date Comments Diabetes mellitus (CMS/[facility] V24, [facility] V28) DX:Diabetes mellitus (HCC) Heart attack (CMS/HCC V24, CMS/[facility] V28) DX:Heart attack (HCC) Mixed [...] AM EDT Office Visit Orthopedic Surgery - [place] [address] [address] Joe Diaz, DPAshish [address] [address] Health Maintenance Due Date Last Done Comments [...] Final Result * Hemoglobin A1c (06/29/2021) Pathologist [facility] Hemoglobin A1C 0.0 % Comment:abstracted, no inter pretation Blood Venous blood specimen / Unknown [facility] Provider LAB BLOOD ORDERABLES Rebeca l Result * Lipid panel (06/29/2021) Pathologist [facility] LDL/HDL Ratio 0 Comment:abstracted, no inter pretation Triglycerides 0 mg/dL Comment:abstracted, no inter pretation Cholesterol 0 mg/dL Comment:abstracted, no inter pretation HDL 0 mg/dL Comment:abstracted, no inter pretation LDL Cholesterol 0.0 mg/dL Comment:abstracted, no inter pretation Blood Venous blood specimen / Unknown Result [facility] Provider LAB BLOOD ORDERABLES Rebeca l Result * Hepatitis C Screening (09/01/2020) Pathologist [facility] Hepatitis C Screening abstracted [facility] Provider HEALTH MAINTENANCE Final Result * Urine Albumin Creatinine Ratio (02/03/2020) Pathologist [facility] Urine Albumin Creatinine Ratio abstracted [facility] Provider HEALTH MAINTENANCE Final Result from Last 3 Months or Most Recently Relevant to Health Maintenance Insurance [employer] Care Teams Washer Blanket Relationship Specialty Start Date End Date Leland Trujillo MD [address] [place] [address] Dr Michelle [place] PCP - General 05/09/22
== END 2024-11-23 09:11 | disposition home or self-care (01) ==
LOC: HO.HGI 08:14
PROVIDERS: PCP Family Medicine; Visit Provider Nurse Practitioner Family
DX: R13.19 Other dysphagia (principal); K21.9 Gastro-esophageal reflux disease without esophagitis; Z12.11 Encounter for screening for malignant neoplasm of colon
CPT/HCPCS: 99203

== ENCOUNTER → 2024-11-23 08:13 | Outpatient (BNVA) | payer OTHER, SELFPAY | PROVIDERS: PCP Family Medicine; Visit Provider Nurse Practitioner Family | DX: Z12.11 Encounter for screening for malignant neoplasm of colon (principal); K21.9 Gastro-esophageal reflux disease without esophagitis; I25.10 Atherosclerotic heart disease of native coronary artery without angina pectoris; I10 Essential (primary) hypertension; R13.19 Other dysphagia | CPT/HCPCS: 99202 ==

== ENCOUNTER 2024-11-25 07:42 | Outpatient (REF) | payer OTHER, SELFPAY ==
--- NOTE | ~2024-11-25 | US_ITS ---
EXAMINATION: ULTRASOUND RENAL, BILATERALLY. CLINICAL INFORMATION: Calculus of kidney. COMPARISON: Correlated to CT abdomen and pelvis dated August 28, 2024 demonstrated mild left hydronephrosis and 2 mm calculus distal right ureter. TECHNIQUE: Real-time ultrasound kidneys using grayscale and color Doppler technique. FINDINGS: Right kidney: 13 x 5 x 5 cm. Normal echotexture. Normal renal cortical thickness. No hydronephrosis. No gross solid or cystic lesion. Left kidney: 12 x 6 x 5 cm. Normal echotexture. Normal renal cortical thickness. No hydronephrosis. No solid or cystic lesion. US/US renal BI IMPRESSION: No hydronephrosis. Normal exam. Electronically signed by: Fadi Sagastume MD 11/25/2024 08:17 AM EDT
--- OUTSIDE RECORDS SUMMARY | 2024-11-25 07:45 | XMS_ITS | Data Portability ---
Author Organization [place] - [facility] Address [address] [place] [phone] Assessment No assessment recorded. Plan of Treatment Reminders Order Date Submit Date Provider Last Modified By Organization Details Last Modified Time Details Appointments None recorded. Lab None recorded. 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 2023 024 2 [facility] Otolaryngolog y, [address], [place], [address], 4 12:21:10 Procedures None recorded. 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 Procedures Surgical History Date Name Laterality Status Provider Name and Address Organization Details Recorded Time 01/20/2024 FFL_RE completed BERNARDA BELL MD 100 [facility] 100, [place], [address], [facility] 01/20/2024 09:14:05 Imaging Results Imaging Date Name Status LastModified by Organiz ation Details LastModified Time 10/01/2023 MRI, brain, w[facility]o [facility] Information not available 01/22/2024 09:27:19 Procedure [...] Updated DateTime 01/20/2024 182.88 cm 35.3 kg/m2 102361.02 g Kat Major [place] - [facility] 01/20/2024 09:04:31 Social History None recorded. Functional Status None recorded. Mental Status None recorded. Family History Nothing Reported. Medical History No medical history recorded. Past Encounters Encounter ID Performer Location Encounter Start Date Encounter Closed Date Diagnosis/Indication Diagnosis SNOMED-CT Code Diagnosis ICD10 Code Diagnosis Note [id number] BERNARDA BELL MD [facility] [address] [address] 01/20/2024 08:46:56 01/20/2024 09:20:43 Dysphagia 84955701 R13.10 Laryngosco py was normal. Mild. Recommend small bites and washing down with fluid and to call if it worsens. 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 BERNARDA BELL MD [address] [place] [address], [phone], [facility] - [facility] 01/20/2024 09:23:32
--- OUTSIDE RECORDS SUMMARY | 2024-11-25 07:45 | XMS_ITS | Clinical Summary ---
Author Organization 175 [facility] Address 175 [place] [address] Phone Care Team Providers Care [employer] Liaison Officer Name Role Phone Leland Trujillo MD Primary [...] 9:15 AM EDT Office Visit Orthopedic Surgery [address] [address] Joe Diaz DPM Controlled type 2 diabetes with neuropathy ([facility] V24, [facility] V28) (Primary Dx); Lumbosacral radiculopathy; Arthritis of both feet; Dermatophytosis, nail 08/31/2024 1:30 PM EST Office Visit Orthopedic [place] [address] [address] Joe Diaz DPM Controlled type 2 diabetes with neuropathy ([facility] V24, [facility] V28) (Primary Dx); Lumbosacral radiculopathy; Arthritis of both feet; Dermatophytosis, nail from Last 3 Months Immunizations Name Administration Dates Next Due Moderna SARS-CoV-2 COVID-19, mRNA, LNP-S, preservative free 12/01/2020,11/03/2020 Medical History Medical History Date Comments Diabetes mellitus (CMS/[facility] V24, [facility] V28) DX:Diabetes mellitus (HCC) Heart attack (CMS/HCC V24, CMS/[facility] V28) DX:Heart attack (HCC) Mixed hyperlipidemia [...] AM EDT Office Visit Orthopedic Surgery - [place] [address] [address] Joe Diaz, DPAshish [address] [address] Health Maintenance Due Date Last Done Comments [...] Final Result * Hemoglobin A1c (06/29/2021) Pathologist [facility] Hemoglobin A1C 0.0 % Comment:abstracted, no inter pretation Blood Venous blood specimen / Unknown [facility] Provider LAB BLOOD ORDERABLES Rebeca l Result * Lipid panel (06/29/2021) Pathologist [facility] LDL/HDL Ratio 0 Comment:abstracted, no inter pretation Triglycerides 0 mg/dL Comment:abstracted, no inter pretation Cholesterol 0 mg/dL Comment:abstracted, no inter pretation HDL 0 mg/dL Comment:abstracted, no inter pretation LDL Cholesterol 0.0 mg/dL Comment:abstracted, no inter pretation Blood Venous blood specimen / Unknown Result [facility] Provider LAB BLOOD ORDERABLES Rebeca l Result * Hepatitis C Screening (09/01/2020) Pathologist [facility] to [facility] Hepatitis C Screening abstracted [facility] Provider HEALTH MAINTENANCE Final Result * Urine Albumin Creatinine Ratio (02/03/2020) Pathologist [facility] to [facility] Urine Albumin Creatinine Ratio abstracted [facility] Provider HEALTH MAINTENANCE Final Result from Last 3 Months or Most Recently Relevant to Health Maintenance Insurance [facility] [employer] Care Teams [employer] Liaison Officer Relationship Specialty Start Date End Date Leland Trujillo MD [address] [place] [address] Dr Michelle [place] PCP - General 05/09/22
== END 2024-11-25 07:43 | disposition home or self-care (01) ==
LOC: HO.US 07:42
PROVIDERS: PCP Family Medicine; Visit Provider Urology
DX: N20.0 Calculus of kidney (principal)
CPT/HCPCS: 76775

== ENCOUNTER → 2024-11-25 07:43 | Outpatient (BNV) | payer OTHER, SELFPAY | PROVIDERS: PCP Family Medicine; Visit Provider Radiology Diagnostic Radiology | DX: N20.0 Calculus of kidney (principal) | CPT/HCPCS: 76775 ==

== ENCOUNTER 2024-12-02 09:31 | Outpatient (AMB) | payer OTHER, SELFPAY ==
--- NOTE | 2024-12-02 09:36 | MHC.OFFVIS ---
Intake Visit Reasons: 3m/US Intake Note: Patient is present for a 3 month follow up/US Urology Medication:Tamsulosin,Vitamin B6, Bitamin B12 Antibiotic Allergy:ERYTHROMYCIN Blood Thinner:Aspirin Charter Pilot Required: No Allergies erythromycin base Allergy (Mild, Verified 12/02/24 09:44) Confusion clonidine Adverse Reaction (Severe, Verified 12/02/24 09:44) Vomiting HPI Comments Details: Mina is a pleasant male. Is a patient of Dr. Trujillo. He is seen for the following urologic conditions - nephrolithiasis Three-month follow-up No stone seen on imaging Benefits from tamsulosin with better urination Urinary Symptoms Review - Patient reports experiencing urinary obstruction. - Patient currently takes tamsulosin for urinary symptoms. - Symptoms include inability to fully void; benefits from using tamsulosin to manage symptoms. Twelve month follow-up imaging Nephrolithiasis 1st episode Initial distal right side pain recent hospital visit Imaging - Persistent mild left hydronephrosis and left perinephric stranding, similar to prior. Possible faintly seen 1 mm stone at the left ureterovesical junction. - 2 mm stone in the distal right ureter without right-sided hydronephrosis. Three-month follow-up Encourage water with lemon diet PFSH Medical History Difficulty swallowing Screening for prostate cancer Screening for colon cancer Adult general medical exam Laboratory exam ordered as part of routine general medical examination Imbalance Left-sided chest wall pain Dizziness Fatigue Unsteady gait Yeast infection of the skin Cough Abnormal lung sounds Abnormal CT lung screening Headache Puncture wound of scalp Left knee pain Sacroiliitis Osteoarthritis of knee Infection of skin Exposure to potential infection Urinary hesitancy Decreased visual acuity Low vitamin B12 level Obesity (BMI 30-39.9) Morbid obesity Elevated fasting glucose Chest discomfort COPD (chronic obstructive pulmonary disease) KELSY on CPAP Torn rotator cuff Diabetes High cholesterol Hypertension Surgical History Stented coronary artery History of carpal tunnel surgery Family History Other Mental health disorder Substance abuse Social History Housing: House Alcohol intake: never Patient Tobacco Use Status: Former Tobacco user e-Cigarette/Vaping Use: Never Used Second Hand Smoke Exposure: No service: No Current occupational status: unemployed Current occupational exposures/hazards: No Cognitive needs: No Hearing needs: No Vision needs: Yes Review of Systems Const Denies chills and Denies fever(s) Card Reports no additional complaints and Denies syncope Resp Denies cough GI Denies abdominal pain and Denies heartburn Reports as per HPI and Denies change in libido Neuro Denies syncope Psych Denies change in libido Endo Denies change in libido Physical Exam Const General: cooperative, healthy appearing, comfortable and no acute distress Orientation/consciousness: patient oriented x3 HEENT Face and sinus: Yes normal facial exam Mouth: moist mucous membranes Neck Neck: Yes normal visual inspection, Yes full ROM and Yes trachea midline Chest Chest palpation & inspection: normal inspection of the chest Resp Effort & Inspection: normal respiratory effort, able to speak in complete sentences and no respiratory distress GI Inspection: Yes normal to inspection Back/Spine/Pelvis Cervical Spine: normal cervical lordosis Thoracic/Lumbar Spine: thoracic and lumbar spine normal to inspection Skin General skin exam: no rashes or lesions noted Neuro General: patient oriented x3, gait normal, tone normal and moves all extremities Extrem General: Yes normal to inspection and Yes capillary refill normal Assessment & Plan Assessment & Plan (1) Kidney stone: Code(s): N20.0 - Calculus of kidney Category: Medical Plan 1. Nephrolithiasis Renal ultrasound shows no stones. Continue hydration. Follow-up in 12 months. 2. Migraines Recommend caffeinated seltzer for caffeine intake. Daily caffeine at 600mg. 3. Urinary Obstruction Managed with tamsulosin. Refill prescription. Continue current treatment. Discussion Notes I discussed the results of the recent renal ultrasound with the patient, noting the absence of stones. We agreed to follow up with another ultrasound in 12 months. I emphasized the importance of adequate hydration and suggested water with lemon as a preventative measure against stone recurrence. For migraine management, I advised a switch from Mountain Dew to caffeinated seltzers due to their low-calorie content and maintained caffeine level. The patient's urinary obstruction symptoms are currently managed with tamsulosin; we agreed to continue the medication as it has been effective. I ensured the patient understands to monitor symptoms and contact me if there are any changes or concerns. Patient Instructions - Continue drinking plenty of water, ideally with lemon, to prevent kidney stones. - Try caffeinated seltzers for caffeine instead of Mountain Dew. - Continue taking tamsulosin as directed; contact me if symptoms change. - Schedule a renal ultrasound follow-up in 12 months. - Let me know if you experience any issues before your next appointment. Orders: Orders US renal BI 6 Months N20.0 - Calculus of kidney Patient Instructions: This note is constructed using voice recognition software. While every effort has been made to ensure accuracy police lieutenant precinct errors may have been included. Imaging studies, laboratory and physical exam results were discussed and reviewed in detail. No major barriers to patient understanding were identified. An opportunity to ask questions regarding the treatment plan was provided. All questions were answered. The patient expressed understanding and agreement with the above treatment plan. The patient is aware they should contact our office by phone for worsening of their current condition or the appearance of new urologic symptoms. Compliance is encouraged with any medications and followup testing that is ordered. It is a privilege to participate in the urologic care of your patient. If you have any questions or concerns regarding treatment for the above conditions, or other urologic issues, please do not hesitate to contact me. The office telephone contact is [phone]. Sincerely, Dr Yuri Matias MD, [facility] - Urology Compassionate Specialist Care for the Genitourinary System Coding Level of Care Code Est Pt Level 3 (47544) Complex EM visit Add On G2211 Diagnoses Kidney stone N20.0
== END 2024-12-02 09:58 | disposition home or self-care (01) ==
LOC: HO.HUSH 09:32
PROVIDERS: PCP Family Medicine; Visit Provider Urology
DX: N20.0 Calculus of kidney (principal)
CPT/HCPCS: 99213; G2211

== ENCOUNTER → 2024-12-02 09:31 | Outpatient (BNVA) | payer OTHER, SELFPAY | PROVIDERS: PCP Family Medicine; Visit Provider Urology | DX: N20.0 Calculus of kidney (principal) | CPT/HCPCS: 99212 ==

== ENCOUNTER 2024-12-07 12:56 | Outpatient (AMB) | payer OTHER, SELFPAY ==
[2024-12-07 13:12] VITALS: BP 120/78; PULSE 90; RESP 16; O2SAT 96; BMI 40.7
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
--- OUTSIDE RECORDS SUMMARY | 2024-12-07 13:15 | XMS_ITS | Data Portability ---
Author Organization [place] - [facility], [facility] Address [address] [place] [phone] Assessment No assessment recorded. Plan of Treatment Reminders Order Date Submit Date Provider Last Modified By Organization Details Last Modified Time Details Appointments None recorded. Lab None recorded. 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 2023 024 2 [facility], [address], [place], [address], 4 12:21:10 Procedures None recorded. 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 09:13:57 Problem Notes None recorded. Procedures Surgical History Date Name Laterality Status Provider Name and Address Organization Details Recorded Time 01/20/2024 FFL_RE completed BERNARDA BELL MD [address] [facility] [address], [place], [phone], [facility] 01/20/2024 09:14:05 Imaging Results Imaging Date Name Status LastModified by Organiz ation Details LastModified Time 10/01/2023 MRI, brain, w/o contrast [facility] Information not available 01/22/2024 09:27:19 Procedure [...] Updated DateTime 01/20/2024 182.88 cm 35.3 kg/m2 147099.02 g Kat Major [place] - [facility] 01/20/2024 09:04:31 Social History None recorded. Functional Status None recorded. Mental Status None recorded. Family History Nothing Reported. Medical History No medical history recorded. Past Encounters Encounter ID Performer Location Encounter Start Date Encounter Closed Date Diagnosis/Indication Diagnosis SNOMED-CT Code Diagnosis ICD10 Code Diagnosis Note [id number] BERNARDA BELL MD [facility] [address] [phone] 01/20/2024 08:46:56 01/20/2024 09:20:43 Dysphagia 56005995 R13.10 Laryngosco py was normal. Mild. Recommend small bites and washing down with fluid and to call if it worsens. 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 BERNARDA BELL MD [address] [place] [address], [phone], [facility] - [facility] 01/20/2024 09:23:32
== END 2024-12-07 13:34 | disposition home or self-care (01) ==
LOC: HO.PMC 12:57
PROVIDERS: PCP Family Medicine; Visit Provider Anesthesiology
DX: E66.01 Morbid (severe) obesity due to excess calories (principal); M46.1 Sacroiliitis, not elsewhere classified; M53.3 Sacrococcygeal disorders, not elsewhere classified; G89.4 Chronic pain syndrome
CPT/HCPCS: 99213

== ENCOUNTER → 2024-12-07 12:56 | Outpatient (BNVA) | payer OTHER, SELFPAY | PROVIDERS: PCP Family Medicine; Visit Provider Anesthesiology | DX: M46.1 Sacroiliitis, not elsewhere classified (principal); M53.3 Sacrococcygeal disorders, not elsewhere classified; E66.01 Morbid (severe) obesity due to excess calories; G89.4 Chronic pain syndrome; Z68.41 Body mass index [BMI] 40.0-44.9, adult | CPT/HCPCS: 99212 ==

== ENCOUNTER 2024-12-13 09:34 | Outpatient (AMB) | payer OTHER, SELFPAY ==
[2024-12-13 09:38] VITALS: BP 120/82; PULSE 77; O2SAT 97; BMI 41.9
--- NOTE | 2024-12-13 09:38 | MHC.OFFVIS ---
Vital Signs 12/13/24 09:38 Height 6 ft Weight 308 lb 10.354 oz BMI 41.9 BP 120/82 Blood Pressure Location Lt brachial Position Sitting Pulse 77 Pulse Source Pulse Oximeter Pulse Oximetry (%) 97 Oxygen Delivery Method Room Air Intake Visit Reasons: Somnolence Intake Note: pt is here for follow up and states he is feeling okay but tired in am. Veneer Drier Feeder Required: No Allergies erythromycin base Allergy (Mild, Verified 12/13/24 13:20) Confusion clonidine Adverse Reaction (Severe, Verified 12/13/24 13:20) Vomiting Medication List - Last Reconciled 12/13/24 by Jessica Wylie MD amitriptyline 50 mg PO BEDTIME amlodipine 10 mg PO DAILY 90 days aripiprazole 5 mg PO DAILY 90 days aspirin (Adult Low Dose Aspirin) 81 mg PO DAILY 90 days bisacodyl 5 mg PO ONCE 1 day bupropion HCl XL 150 mg PO QAM 90 days bupropion HCl XL 300 mg PO DAILY 90 days carvedilol 25 mg PO Q12H 90 days cholecalciferol (vitamin D3) 25 mcg PO DAILY 90 days clotrimazole 1% 1 appl topical BID 2 weeks cyanocobalamin (vitamin B-12) 1,000 mcg PO DAILY 90 days duloxetine 30 mg PO DAILY 90 days escitalopram oxalate 5 mg PO DAILY furosemide 10 mg (1/2 x 20 mg) PO QAM 30 days gabapentin 300 mg PO TID 30 days hydroxyzine HCl 25 mg PO TID indomethacin 25 mg PO BID 30 days ipratropium-albuterol 20-100 mcg/actuation (Combivent Respimat) 1 puff inhalation Q6H PRN isosorbide mononitrate ER 30 mg PO DAILY 90 days ketorolac 10 mg PO Q6H PRN loratadine 10 mg PO DAILY 90 days metformin 500 mg PO BID 90 days methocarbamol 1,500 mg (2 x 750 mg) PO Q8H PRN morphine 15 mg PO Q6H PRN omeprazole 20 mg PO BID 90 days ondansetron 4 mg PO Q8H PRN polyethylene glycol 3350 (Miralax) 238 grams PO ONCE pramipexole 0.5 mg PO BEDTIME 30 days pyridoxine (vitamin B6) 50 mg PO DAILY 90 days rosuvastatin 40 mg PO DAILY 90 days tamsulosin 0.4 mg PO BEDTIME 90 days topiramate 300 mg PO DAILY triamcinolone acetonide 0.1% 1 appl topical DAILY 30 days umeclidinium-vilanterol 62.5-25 mcg/actuation (Anoro Ellipta) 1 inh inhalation Q24H 30 days Do you need a note to return to daycare/school/sports/work: No HPI HPI Somnolence: Details: This 49 years old gentleman who is morbidly obese and has diagnosis of obstructive sleep apnea, comes for his follow-up after 6 months. He is a regular user of CPAP and sleeps well at least 6-7 hours per night. He has no issues with the use of CPAP. Breathing is okay and he denies having any attacks of cough or wheezing. He is not doing any active exercise, and can not lose weight. In fact during the winter months being quite inactive he has gained about 8 lb of weight. He is somewhat sat because he could not attend the graduation ceremony of his son. [facility] Medical History (Updated 12/13/24 @ 13:27 by Jessica Wylie MD) Obesity (BMI 30-39.9) Difficulty swallowing Screening for prostate cancer Screening for colon cancer Adult general medical exam Laboratory exam ordered as part of routine general medical examination Imbalance Left-sided chest wall pain Dizziness Fatigue Unsteady gait Yeast infection of the skin Cough Abnormal lung sounds Abnormal CT lung screening Headache Puncture wound of scalp Left knee pain Sacroiliitis Osteoarthritis of knee Infection of skin Exposure to potential infection Urinary hesitancy Decreased visual acuity Low vitamin B12 level Morbid obesity Elevated fasting glucose Chest discomfort COPD (chronic obstructive pulmonary disease) KELSY on CPAP Torn rotator cuff Diabetes High cholesterol Hypertension Surgical History Stented coronary artery History of carpal tunnel surgery Family History Other Mental health disorder Substance abuse Social History Housing: House Alcohol intake: never Patient Tobacco Use Status: Former Tobacco user e-Cigarette/Vaping Use: Never Used Second Hand Smoke Exposure: No service: No Current occupational status: unemployed Current occupational exposures/hazards: No Cognitive needs: No Hearing needs: No Vision needs: Yes Review of Systems Const All systems reviewed & are unremarkable except as noted in HPI and below Eyes Reports no additional complaints ENT Reports no additional complaints Card Denies chest pain, Denies irregular heart rhythm and Denies leg edema Resp Reports as per HPI GI Reports heartburn (GERD symptoms being treated) Reports difficulty urinating and Reports nocturia Musc Reports numbness (Lower extremity) and Reports other (Carpal tunnel syndrome both wrists) Skin/Breast Reports dry skin Neuro Reports numbness (Lower extremity) and Reports restless legs Psych Reports anxiety and Reports depression Endo Reports other (Being treated for diabetes mellitus) Ludin/Lymph Reports no additional complaints Aller/Immun Reports no additional complaints Physical Exam Vital Signs: Last Vital Signs Pulse 77 12/13/24 09:38 BP 120/82 12/13/24 09:38 Pulse Ox 97 12/13/24 09:38 Oxygen Delivery Method Room Air 12/13/24 09:38 BMI result Body Mass Index 41.9 This gentleman is grossly obese, with a round face, and a fat neck. Const General: comfortable, no acute distress, alert and awake Orientation/consciousness: patient oriented x3 HEENT Head: Yes normal to inspection General nose exam: No nasal polyps present and No nasal discharge present Face and sinus: Yes sinuses nontender Mouth: oropharynx normal (Oropharynx is crowded, Mallampati class 4) Throat: Yes posterior oropharynx normal Eyes General: appearance normal, both eyes and all related structures Neck Neck: Yes normal visual inspection, Yes no lymphadenopathy, Yes trachea midline and Yes no JVD Thyroid: Thyroid normal Chest Chest palpation & inspection: normal inspection of the chest, normal palpation of entire chest wall and no tenderness Resp Other: Percussion note not perceptible because of the thick and obese chest wall. Breath sounds are generally distant. especially over the basilar areas No audible wheezes or rhonchi, or crepitations. Cardio Palpation: PMI not normal (Not palpable) Rate: regular rate Rhythm: regular rhythm Heart sounds: no gallops and no murmurs GI Palpation (GI): Soft to palpation, Tenderness to palpation present (GI), No hepatosplenomegaly present, Palpable mass present and Other GI palpation findings present (Abdomen is grossly obese and slightly protuberant) Auscultation: normal bowel sounds Back/Spine/Pelvis Thoracic/Lumbar Spine: thoracic and lumbar spine normal to inspection and thoraco-lumbar ROM limited Skin General skin exam: no rashes or lesions noted and dry skin Neuro General: patient oriented x3 and no focal motor deficits Cranial nerves: Yes CN's II-XII intact bilaterally Extrem General: Yes normal to inspection, Yes no clubbing, cyanosis or edema and Yes no calf tenderness Psych Appearance: grossly normal and well kempt Speech and movement: Normal speech and movement present Results Reviewed Results Reviewed: The compliance report for the last 30 nights is reviewed and shows that he has used 30/30 nights, 100%. Average use it per night 7 hours 28 minutes. There is moderate amount of air leak. Residual AHI is 1.9 Assessment & Plan Assessment & Plan (1) KELSY on CPAP: Comment: PATIENT DOES HAVE OBSTRUCTIVE SLEEP APNEA FOR MANY YEARS, HE HAS BEEN USING CPAP REGULARLY, PRESSURE 14 CM, FULLFACE MASK. HE BENEFITS FROM THE USE OF CPAP. COMPLIANCE IS GOOD. Code(s): G47.33 - Obstructive sleep apnea (adult) (pediatric); Z99.89 - Dependence on other enabling machines and devices Category: Medical Plan: ADVISED TO KEEP ON USING THE CPAP REGULARLY, HE IS DOING NOW. CONTINUE TO GET. SUPPLIES ON TIME (2) COPD (chronic obstructive pulmonary disease): Comment: PATIENT HAS BEEN TREATED A CASE OF CHRONIC OBSTRUCTIVE PULMONARY DISEASE/BRONCHIAL ASTHMA. I EXPLAINED TO HIM THE RESULTS OF PULMONARY FUNCTION TEST BEING ALMOST NORMAL. HE DOES NOT BELIEVE IT AND SAYS ,IF HE DOES NOT USE COMBIVENT RESPIMAT HE GETS MORE COUGH AND SHORTNESS OF BREATH. Code(s): J44.9 - Chronic obstructive pulmonary disease, unspecified Category: Medical Plan: OK TO USE COMBIVENT RESPIMAT 1 INHALATION Q 6 HOURS P.R.N. (3) Obesity (BMI 30-39.9): Comment: THIS IS A CHRONIC PROBLEM IN HIS CASE, PATIENT IS FULLY AWARE, HE TRIES TO LIMIT CALORIES INTAKE. It is BECAUSE OF LOW LEVEL OF ACTIVITY THAT HE CANNOT LOSE WEIGHT. Code(s): E66.9 - Obesity, unspecified Category: Medical Plan: WEIGHT IS UP BY A FEW LB, HE IS ENCOURAGED TO WATCH HIS DIET CLOSELY AND ALSO DUE. WALKING 1 OR 2 MILES EVERY DAY Coding Level of Care Code Est Pt Level 3 (96531) Diagnoses KELSY on CPAP G47.33; Z99.89 COPD (chronic obstructive pulmonary disease) J44.9 Obesity (BMI 30-39.9) E66.9
--- OUTSIDE RECORDS SUMMARY | 2024-12-13 10:31 | XMS_ITS | Data Portability ---
Author Organization [place] - [facility], [facility] Address [address] [place] [id number] Assessment No assessment recorded. Plan of Treatment Reminders Order Date Submit Date Provider Last Modified By Organization Details Last Modified Time Details Appointments None recorded. Lab None recorded. 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 2023 024 [id number] 2 [facility] Otolaryngolog y, [address], [place], [address], 4 12:21:10 Procedures None recorded. 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 Procedures Surgical History Date Name Laterality Status Provider Name and Address Organization Details Recorded Time 01/20/2024 FFL_RE completed BERNARDA BELL MD 100 [facility] 100, [place], [address], [facility] 01/20/2024 09:14:05 Imaging Results Imaging Date Name Status LastModified by Organiz ation Details LastModified Time 10/01/2023 [facility], brain[facility] w[facility] Information not available 01/22/2024 09:27:19 Procedure [...] Updated DateTime 01/20/2024 182.88 cm 35.3 kg/m2 680723.02 g Kat Major [place] - [facility] 01/20/2024 09:04:31 Social History None recorded. Functional Status None recorded. Mental Status None recorded. Family History Nothing Reported. Medical History No medical history recorded. Past Encounters Encounter ID Performer Location Encounter Start Date Encounter Closed Date Diagnosis/Indication Diagnosis SNOMED-CT Code Diagnosis ICD10 Code Diagnosis Note [id number] BERNARDA BELL MD [facility] [address] [phone] 01/20/2024 08:46:56 01/20/2024 09:20:43 Dysphagia 63599103 R13.10 Laryngosco py was normal. Mild. Recommend small bites and washing down with fluid and to call if it worsens. 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 BERNARDA BELL MD [address] [place] [address], [phone], [facility] - [facility] 01/20/2024 09:23:32
--- OUTSIDE RECORDS SUMMARY | 2024-12-13 10:31 | XMS_ITS | Clinical Summary ---
Author Organization [address] [facility] Address [address] [place] [address] Phone Care Team Providers Care Access Developer Name Role Phone Leland Trujillo MD Primary [...] 9:15 AM EDT Office Visit Orthopedic Surgery [address] [address] Joe Diaz, AIDA Controlled type 2 diabetes with neuropathy ([facility] V24, [facility] V28) (Primary Dx); Lumbosacral radiculopathy; Arthritis of both feet; Dermatophytosis, nail from Last 3 Months Immunizations Name Administration Dates Next Due Moderna SARS-CoV-2 COVID-19, mRNA, LNP-S, preservative free 12/01/2020,11/03/2020 Medical History Medical History Date Comments Diabetes mellitus ([facility] V24, [facility] V28) DX:Diabetes mellitus (HCC) Heart attack ([facility] V24, [facility] V28) DX:Heart attack (HCC) Mixed hyperlipidemia DX:Mixed [...] AM EDT Office Visit Orthopedic Surgery - [place] [address] [facility] [address] [place] [address] Joe Diaz, AIDA 175 [facility] [address] [place] [address] Health Maintenance Due Date Last Done Comments [...] Rebeca l Result * Lipid panel (06/29/2021) LDL/HDL Ratio 0 Comment:abstracted, no inter pretation Triglycerides 0 mg/dL Comment:abstracted, no inter pretation Cholesterol 0 mg/dL Comment:abstracted, no inter pretation HDL 0 mg/dL Comment:abstracted, no inter pretation LDL Cholesterol 0.0 mg/dL Comment:abstracted, no inter pretation Blood Venous blood specimen / Unknown Result [facility] Provider LAB BLOOD ORDERABLES Rebeca l Result * Hepatitis C Screening (09/01/2020) Pathologist [facility] Hepatitis C Screening abstracted Result [facility] Provider HEALTH MAINTENANCE Final Result * Urine Albumin Creatinine Ratio (02/03/2020) Pathologist [facility] Urine Albumin Creatinine Ratio abstracted Result [facility] Provider HEALTH MAINTENANCE Final Result from Last 3 Months or Most Recently Relevant to Health Maintenance Insurance [facility] [employer] Care Teams Access Developer Relationship Specialty Start Date End Date Leland Trujillo MD [address] [place] [address] Dr Michelle MA PCP - General 05/09/22
== END 2024-12-13 09:55 | disposition home or self-care (01) ==
LOC: HO.HPS 09:35
PROVIDERS: PCP Internal Medicine; Visit Provider Internal Medicine
DX: G47.33 Obstructive sleep apnea (adult) (pediatric) (principal); Z99.89 Dependence on other enabling machines and devices; J44.9 Chronic obstructive pulmonary disease, unspecified; E66.9 Obesity, unspecified
CPT/HCPCS: 99213

== ENCOUNTER → 2024-12-13 09:34 | Outpatient (BNVA) | payer OTHER, SELFPAY | PROVIDERS: PCP Internal Medicine; Visit Provider Internal Medicine | DX: J44.9 Chronic obstructive pulmonary disease, unspecified (principal); G47.33 Obstructive sleep apnea (adult) (pediatric); E66.9 Obesity, unspecified; Z99.89 Dependence on other enabling machines and devices; Z68.41 Body mass index [BMI] 40.0-44.9, adult | CPT/HCPCS: 99212 ==

== ENCOUNTER 2024-12-13 15:41 | Emergency (ER) | payer OTHER, SELFPAY ==
[2024-12-13 15:56] VITALS: BP 108/75; PULSE 88; O2SAT 98
[2024-12-13 15:57] VITALS: BP 127/76; PULSE 84; RESP 18; TEMP 36.4; O2SAT 95; BMI 40.7
--- NOTE | 2024-12-13 16:12 | ED_ITS ---
HPI - General Adult General Chief complaint: Dizziness Stated complaint: dizzy Time Seen by Provider: 12/13/24 16:08 Source: patient Mode of arrival: ambulatory Limitations: no limitations History of Present Illness HPI narrative: This is a 49-year-old man with a past medical history of COPD, KELSY on CPAP, hypertension, hyperlipidemia, diabetes mellitus with PCI to LAD in 2019 who presents for evaluation of dizziness. He states having dizziness starting earlier today at around 11:30 a.m. he states that around 11:30 a.m. he was helping his friend clean his room. He states they were not lifting anything very heavy. He states he has had similar dizziness in the past. He states feeling off balance. He states no syncope. He states no chest pain or dyspnea. He states no headache. He states no back pain or abdominal pain. He states no GI or symptoms. Related Data Home Medications ?Medication ?Instructions ?Recorded ?Confirmed amitriptyline 25 mg tablet 50 mg PO BEDTIME 01/01/23 12/07/24 escitalopram oxalate 5 mg tablet 5 mg PO DAILY 07/08/23 12/07/24 hydroxyzine HCl 25 mg tablet 25 mg PO TID 10/07/23 12/07/24 topiramate 100 mg tablet 300 mg PO DAILY 10/07/23 12/07/24 ipratropium 20 mcg-albuterol 100 1 puff inhalation Q6H PRN 10/27/23 12/07/24 mcg/actuation mist for inhalation (Combivent Respimat) Previous Rx's ?Medication ?Instructions ?Recorded triamcinolone acetonide 0.1 % 1 appl topical DAILY 30 days #80 04/21/22 topical cream grams bupropion HCl 150 mg 24 hr tablet, 150 mg PO QAM 90 days #90 tabs 05/06/22 extended release aripiprazole 5 mg tablet 5 mg PO DAILY 90 days #90 tabs 05/11/22 bupropion HCl 300 mg 24 hr tablet, 300 mg PO DAILY 90 days #90 tabs 05/11/22 extended release umeclidinium 62.5 mcg-vilanterol 1 inh inhalation Q24H 30 days #60 12/22/23 25 mcg/actuation powdr for ea inhalation (Anoro Ellipta) isosorbide mononitrate 30 mg 30 mg PO DAILY 90 days #90 tabs 04/25/24 tablet,extended release 24 hr clotrimazole 1 % topical cream 1 appl topical BID 2 weeks #45 07/06/24 grams morphine 15 mg immediate release 15 mg PO Q6H PRN pain #12 tabs 08/28/24 tablet ondansetron 4 mg disintegrating 4 mg PO Q8H PRN nausea and 08/28/24 tablet vomiting #20 tabs metformin 500 mg tablet 500 mg PO BID 90 days #180 tabs 09/16/24 omeprazole 20 mg capsule,delayed 20 mg PO BID 90 days #180 caps 09/16/24 release aspirin 81 mg tablet,delayed 81 mg PO DAILY 90 days #90 tabs 10/10/24 release (Adult Low Dose Aspirin) cholecalciferol (vitamin D3) 25 25 mcg PO DAILY 90 days #90 caps 10/10/24 mcg (1,000 unit) capsule loratadine 10 mg tablet 10 mg PO DAILY 90 days #90 tabs 10/10/24 ketorolac 10 mg tablet 10 mg PO Q6H PRN pain #20 tabs 10/11/24 methocarbamol 750 mg tablet 1,500 mg (2 x 750 mg) PO Q8H PRN 10/11/24 pain, moderate #20 tabs cyanocobalamin (vitamin B-12) 1,000 mcg PO DAILY 90 days #90 tabs 10/12/24 1,000 mcg tablet indomethacin 25 mg capsule 25 mg PO BID 30 days #60 caps 10/19/24 carvedilol 25 mg tablet 25 mg PO Q12H 90 days #180 tabs 10/25/24 duloxetine 30 mg capsule,delayed 30 mg PO DAILY 90 days #90 caps 10/26/24 release gabapentin 300 mg capsule 300 mg PO TID 30 days #90 caps 10/26/24 amlodipine 10 mg tablet 10 mg PO DAILY 90 days #90 tabs 11/11/24 furosemide 20 mg tablet 10 mg (1/2 x 20 mg) PO QAM 30 days 11/15/24 #15 tabs bisacodyl 5 mg tablet,delayed 5 mg PO ONCE 1 day #4 tabs 11/23/24 release polyethylene glycol 3350 17 238 g PO ONCE #238 grams 11/23/24 gram/dose oral powder (Miralax) pyridoxine (vitamin B6) 50 mg 50 mg PO DAILY 90 days #90 tabs 12/02/24 tablet tamsulosin 0.4 mg capsule 0.4 mg PO BEDTIME 90 days #90 caps 12/02/24 pramipexole 0.5 mg tablet 0.5 mg PO BEDTIME 30 days #30 tabs 12/06/24 rosuvastatin 40 mg tablet 40 mg PO DAILY 90 days #90 tabs 12/11/24 Allergies Allergy/AdvReac Type Severity Reaction Status Date / Time erythromycin base Allergy Mild Confusion Verified 12/13/24 16:01 clonidine AdvReac Severe Vomiting Verified 12/13/24 13:20 Review of Systems 2 Review of Systems: ROS as per HPI [facility] Past Medical History Medical History (Updated 12/13/24 @ 19:00 by Marcos Montes De Oca MD) Obesity (BMI 30-39.9) Difficulty swallowing Screening for prostate cancer Screening for colon cancer Adult general medical exam Laboratory exam ordered as part of routine general medical examination Imbalance Left-sided chest wall pain Dizziness Fatigue Unsteady gait Yeast infection of the skin Cough Abnormal lung sounds Abnormal CT lung screening Headache Puncture wound of scalp Left knee pain Sacroiliitis Osteoarthritis of knee Infection of skin Exposure to potential infection Urinary hesitancy Decreased visual acuity Low vitamin B12 level Morbid obesity Elevated fasting glucose Chest discomfort COPD (chronic obstructive pulmonary disease) KELSY on CPAP Torn rotator cuff Diabetes High cholesterol Hypertension Surgical History Stented coronary artery History of carpal tunnel surgery Family History Family History Other Mental health disorder Substance abuse Social History Social History Housing: House Alcohol intake: never Patient Tobacco Use Status: Former Tobacco user Smoked in Last 30 Days: No e-Cigarette/Vaping Use: Never Used Second Hand Smoke Exposure: No Use of substances other than those prescribed or required for medical reasons: No Advance Directives: No Advance Directives Information Provided: No service: No Current occupational status: unemployed Current occupational exposures/hazards: No Cognitive needs: No Hearing needs: No Vision needs: Yes Physical Exam ED Vital Signs: Vital Signs - 24 hr 12/13/24 15:57 Temperature 97.6 F Pulse Rate 84 Respiratory Rate 18 Blood Pressure 127/76 Pulse Oximetry 95 Oxygen Delivery Method Room Air BMI result Body Mass Index 40.7 Gen: NAD, AOx3 HEENT: NCAT, EOMI, normal conjunctiva CV: RRR Pulm: CTAB, no increased work of breathing GI: Soft, NTND, no rebound, guarding or rigidity Neuro: CN 2-12 intact, intact sensation to light touch in bilateral upper and lower extremities, 5/5 bilateral upper and lower extremity strength, no nystagmus, no truncal ataxia, no dysmetria or dysdiadochokinesia Medications Administered Discontinued Medications Generic Name Dose Route Start Last Admin Trade Name Freq PRN Reason Stop Dose Admin Diphenhydramine HCl 25 mg 12/13/24 16:23 12/13/24 16:45 Diphenhydramine Hcl 50 Mg/Ml Vial IVPUSH 12/13/24 16:24 25 mg ONCE ONE Administration Sodium Chloride 1,000 mls @ 999 mls/hr 12/13/24 16:30 12/13/24 17:44 Ns IV 12/13/24 17:30 Infused .Q1H1M NATALIA Infusion Metoclopramide HCl 10 mg 12/13/24 16:23 12/13/24 16:45 Metoclopramide Hcl 10 Mg/2 Ml Vial IVPUSH 12/13/24 16:24 10 mg ONCE ONE Administration Medical Decision Making Medical Decision Making [facility] Narrative: Differential diagnosis includes, but is not limited to viral syndrome, electrolyte derangement, anemia, vertigo, vasovagal presyncope. Patient is afebrile and hemodynamically stable on room air. Exam is benign and reassuring. Patient has no focal neurological deficits. Patient is treated supportively with diphenhydramine and Reglan. On re-examination, patient is well-appearing and in no acute distress. ?There is no indication for further emergent evaluation in this otherwise well-appearing patient as above. ?Patient is provided written and verbal instructions, educational materials, recommendations for outpatient follow-up, strict return precautions and teach back is performed. ?Patient states understanding and agreement with plan of care. ?Patient is discharged home in stable and improved condition. Admission/Observation Consideration of admission/observation: Escalation of care including admission/observation considered Lab Data [facility] Lab Attestation statement: I reviewed the patient's lab results. CBC demonstrates stable chronic anemia with hemoglobin 13.3 (previous 13.9), metabolic panel benign and reassuring 12/13/24 16:42 05/20/25 16:42 Labs: Lab Results 12/13/24 Range/Units 16:42 WBC 6.1 (4.8-10.8) X10*3/uL RBC 4.44 L (4.60-5.80) X10*6/uL Hgb 13.3 L (14.0-18.0) g/dl Hct 39.1 L (42.0-52.0) % MCV 88.1 (80.0-98.0) fL MCH 30.0 (27.0-33.0) pg MCHC 34.0 (31.0-36.0) g/dl RDW 13.2 (11.0-16.0) % Plt Count 166 (160-400) X10*3/uL MPV 9.7 (9.4-12.4) fL Immature Gran % (Auto) 0.3 (0.0-0.4) % Neut % (Auto) 45.3 (45-73) % Lymph % (Auto) 40.8 H (20-40) % Deuel % (Auto) 9.5 (2-11) % Eos % (Auto) 3.1 (0-4) % Baso % (Auto) 1.0 (0-2) % Lymph # (Auto) 2.5 (1.2-4.9) X10*3/uL Deuel # (Auto) 0.6 (0.1-1.2) X10*3/uL Eos # (Auto) 0.2 (0.0-0.4) X10*3/uL Baso # (Auto) 0.1 (0.0-0.2) X10*3/uL Abs Immat Gran (auto) 0.02 (0.00-0.03) X10*3/uL Absolute Neuts (auto) 2.8 (2.0-8.3) x10*3/uL Absolute Nucleated RBC 0.000 (0.0-0.012) X10*3/uL Nucleated RBC % (auto) 0.0 (0.0-0.2) /100WBC Sodium 139 (135-145) mmol/L Potassium 4.0 (3.3-5.1) mmol/L Chloride 110 H (96-108) mmol/L Carbon Dioxide 22 (22-29) mmol/L Anion Gap 11 L (12-20) BUN 14 (9-16) mg/dL Creatinine 1.16 (0.5-1.4) mg/dL Estim Creat Clear Calc 111.2 Estimated GFR > 60 Random Glucose 105 (60-115) mg/dL Calcium 9.1 D (8.4-10.2) mg/dL Discharge Plan Discharge Clinical Impression: Dizziness Patient Disposition: Home, Self-Care Instructions: Dizziness (ED) Additional Instructions: You were seen and evaluated in the emergency room. Your evaluation was overall reassuring including vital signs, blood work and physical exam. Please follow-up with your regular doctors in the next 1 week for re-evaluation. Return to the emergency room with any new concerns or symptoms. Prescriptions: No Action triamcinolone acetonide 0.1 % cream 1 appl topical DAILY 30 Days Qty: 80 1RF bupropion HCl 150 mg tablet extended release 24 hr 150 mg PO QAM 90 Days Qty: 90 2RF bupropion HCl 300 mg tablet extended release 24 hr 300 mg PO DAILY 90 Days Qty: 90 2RF aripiprazole 5 mg tablet 5 mg PO DAILY 90 Days Qty: 90 2RF Anoro Ellipta 62.5-25 mcg/actuation blister with device 1 inh inhalation Q24H 30 Days Qty: 60 2RF isosorbide mononitrate 30 mg tablet extended release 24 hr 30 mg PO DAILY 90 Days Qty: 90 3RF omeprazole 20 mg capsule,delayed release(DR/EC) 20 mg PO BID 90 Days Qty: 180 0RF metformin 500 mg tablet 500 mg PO BID 90 Days Qty: 180 0RF cholecalciferol (vitamin D3) 25 mcg (1,000 unit) capsule 25 mcg PO DAILY 90 Days Qty: 90 0RF aspirin [Adult Low Dose Aspirin] 81 mg tablet,delayed release (DR/EC) 81 mg PO DAILY 90 Days Qty: 90 0RF loratadine 10 mg tablet 10 mg PO DAILY 90 Days Qty: 90 0RF cyanocobalamin (vitamin B-12) 1,000 mcg tablet 1,000 mcg PO DAILY 90 Days Qty: 90 0RF indomethacin 25 mg capsule 25 mg PO BID 30 Days Qty: 60 0RF Rx Instructions: administer with food or milk carvedilol 25 mg tablet 25 mg PO Q12H 90 Days Qty: 180 0RF Rx Instructions: must administer with a meal/food duloxetine 30 mg capsule,delayed release(DR/EC) 30 mg PO DAILY 90 Days Qty: 90 0RF gabapentin 300 mg capsule 300 mg PO TID 30 Days Qty: 90 0RF amlodipine 10 mg tablet 10 mg PO DAILY 90 Days Qty: 90 0RF furosemide 20 mg tablet 10 mg PO QAM 30 Days Qty: 15 2RF tamsulosin 0.4 mg capsule 0.4 mg PO BEDTIME 90 Days Qty: 90 3RF pyridoxine (vitamin B6) 50 mg tablet 50 mg PO DAILY 90 Days Qty: 90 3RF pramipexole 0.5 mg tablet 0.5 mg PO BEDTIME 30 Days Qty: 30 0RF rosuvastatin 40 mg tablet 40 mg PO DAILY 90 Days Qty: 90 0RF ketorolac 10 mg tablet 10 mg PO Q6H PRN (Reason: pain) Qty: 20 0RF Rx Instructions: maximum total duration of 5 days from all oral, intranasal, or parenteral formulations. The patient intramuscular dose of Toradol here in the emergency department. methocarbamol 750 mg tablet 1,500 mg PO Q8H PRN (Reason: pain, moderate) Qty: 20 0RF morphine 15 mg tablet 15 mg PO Q6H PRN (Reason: pain) Qty: 12 0RF Rx Instructions: partial fill okay; Partial Fill upon patient request. ondansetron 4 mg tablet,disintegrating 4 mg PO Q8H PRN (Reason: nausea and vomiting) Qty: 20 0RF escitalopram oxalate 5 mg tablet 5 mg PO DAILY amitriptyline 25 mg tablet 50 mg PO BEDTIME topiramate 100 mg tablet 300 mg PO DAILY Rx Instructions: Take 1 tab in the morning and 2 at bedtime. hydroxyzine HCl 25 mg tablet 25 mg PO TID Combivent Respimat 20-100 mcg/actuation mist 1 puff inhalation Q6H PRN clotrimazole 1 % cream 1 appl topical BID 14 Days Qty: 45 1RF bisacodyl 5 mg tablet,delayed release (DR/EC) 5 mg PO ONCE 1 Days Qty: 4 0RF Rx Instructions: per colonoscopy instructions polyethylene glycol 3350 [Miralax] 17 gram/dose powder 238 g PO ONCE Qty: 238 0RF Rx Instructions: per colonoscopy prep instructions Print Language: Brazilian
[2024-12-13] MEDS: 0.9 % Sodium Chloride 1,000 ML 999 ML IV (16:41)
[2024-12-13] MEDS: diphenhydrAMINE HCL 50 MG/ML VIAL 25 MG IVPUSH (16:45)
[2024-12-13] MEDS: Metoclopramide HCl 10 MG/2 ML VIAL IVPUSH (16:45)
--- OUTSIDE RECORDS SUMMARY | 2024-12-13 16:45 | XMS_ITS | Clinical Summary ---
Author Organization [address] [facility] Address [address] [place] [address] Phone Care Team Providers Care Cafeteria Team Leader Name Role Phone Leland Trujillo MD Primary [...] AM EDT Office Visit Orthopedic Surgery [address] [address] Joe Diaz, AIDA Controlled type 2 diabetes with neuropathy ([facility] V24, [facility] V28) (Primary Dx); Lumbosacral radiculopathy; Arthritis of both feet; Dermatophytosis, nail from Last 3 Months Immunizations Name Administration Dates Next Due Moderna SARS-CoV-2 COVID-19, mRNA, LNP-S, preservative free 12/01/2020,11/03/2020 Medical History Medical History Date Comments Diabetes mellitus ([facility] V24, [facility] V28) DX:Diabetes mellitus (HCC) Heart attack ([facility] V24, [facility] V28) DX:Heart attack (HCC) Mixed [...] AM EDT Office Visit Orthopedic Surgery - [place] [address] [facility] [address] [place] [address] Joe Diaz, AIDA [address] [facility] [address] [place] [address] Health Maintenance Due Date Last Done Comments [...] Final Result * Hemoglobin A1c (06/29/2021) Pathologist [facility] Hemoglobin A1C 0.0 % Comment:abstracted, [...] Blood Venous blood specimen / Unknown Result [facility] Provider LAB BLOOD ORDERABLES Rebeca l Result * Hepatitis C Screening (09/01/2020) Pathologist [facility] Hepatitis C Screening abstracted Result [facility] Provider HEALTH MAINTENANCE Final Result * Urine Albumin Creatinine Ratio (02/03/2020) Pathologist [facility] Urine Albumin Creatinine Ratio abstracted Result [facility] Provider HEALTH MAINTENANCE Final Result from Last 3 Months or Most Recently Relevant to Health Maintenance Insurance [facility] Care Teams Cafeteria Team Leader Relationship Specialty Start Date End Date Leland Trujillo MD [address] [place] [address] Dr Michelle MA PCP - General 05/09/22
[2024-12-13 16:46] LABS: MANUAL DIFF FLAG NO
[2024-12-13 16:48] LABS: Basophils Absolute Auto 0.1 X10*3/uL (0.0-0.2); Eosinophils Absolute Auto 0.2 X10*3/uL (0.0-0.4); Eosinophils Percent Auto 3.1 % (0-4); Hematocrit 39.1 % (42.0-52.0); Hemoglobin 13.3 g/dl (14.0-18.0); Imm Gran Abs Auto 0.02 X10*3/uL (0.00-0.03); Imm Gran Pct Auto 0.3 % (0.0-0.4); Lymphocytes Absolute Auto 2.5 X10*3/uL (1.2-4.9); Lymphocytes Percent Auto 40.8 % (20-40); Mean Corpuscular Volume 88.1 fL (80.0-98.0); Mean Platelet Volume 9.7 fL (9.4-12.4); Monocytes Absolute Auto 0.6 X10*3/uL (0.1-1.2); Monocytes Percent Auto 9.5 % (2-11); Neutrophils Absolute Auto 2.8 x10*3/uL (2.0-8.3); Neutrophils Percent Auto 45.3 % (45-73); Platelet Count 166 X10*3/uL (160-400); Red Blood Count 4.44 X10*6/uL (4.60-5.80); Red Cell Distribution Width 13.2 % (11.0-16.0); White Blood Count 6.1 X10*3/uL (4.8-10.8)
[2024-12-13 17:10] LABS: Anion Gap 11 (12-20); Blood Urea Nitrogen 14 mg/dL (9-16); Calcium 9.1 mg/dL (8.4-10.2); Carbon Dioxide 22 mmol/L (22-29); Chloride 110 mmol/L (96-108); Creatinine Clr Calc Pharmacy 111.2; Estimated Glomerular Filt Rate > 60; Glucose Random 105 mg/dL (60-115); Sodium 139 mmol/L (135-145)
[2024-12-13 19:05] VITALS: BP 125/83; PULSE 78; RESP 20; TEMP 36.2; O2SAT 97
== END 2024-12-13 19:10 | disposition home or self-care (01) ==
PROVIDERS: Emergency Provider Emergency Medicine; PCP Family Medicine
DX: R42 Dizziness and giddiness (principal); J44.9 Chronic obstructive pulmonary disease, unspecified; G47.33 Obstructive sleep apnea (adult) (pediatric); R11.0 Nausea; I10 Essential (primary) hypertension; E11.9 Type 2 diabetes mellitus without complications; Z79.899 Other long term (current) drug therapy; Z87.891 Personal history of nicotine dependence
CPT/HCPCS: 36415; 80048; 85025; 96361; 96374; 96375; 99284; J1200; J2765

== ENCOUNTER 2025-01-04 18:31 | Emergency (ER) | payer OTHER, SELFPAY ==
--- NOTE | ~2025-01-04 | XR_ITS ---
CLINICAL HISTORY: Fever,cough 1 view chest x-ray Comparison: Chest x-ray from 08/24/2024 Findings: New mild bibasilar pulmonary opacities may reflect pneumonitis and/or atelectasis with mild elevation of the left hemidiaphragm. No definite pneumothorax or pleural effusion in this one view study. Imaged mediastinum and imaged osseous structures appear unchanged. IMPRESSION: Mild bibasilar atelectasis/pneumonitis. This document has been electronically signed by: Farooq Aceves MD on 01/04/2025 19:43:38
--- NOTE | ~2025-01-04 | MR_ITS ---
CLINICAL HISTORY: fever, back pain, previous epidural injection in November. patient motion on images, bes t obtainable MR lumbar spine with and without intravenous contrast Comparison: MRI of the lumbar spine from 03/31/2024 Findings: Worsening of the multifocal degenerative changes; particularly degenerative disc changes and facet arthropathy when compared to 03/31/2024. Normal heights of 5 lumbar vertebrae. No significant listhesis. Minimal endplate signal enhancement likely due to Modic type endplate changes including Modic type 1 at thoracolumbar junction, L4-L5, and L5-S1. Mild disc signal follows annular fissure at L5-S1 without definite discitis or osteomyelitis at this time. No drainable paraspinal fluid collection or intramuscular abscess at this time. Perinephric stranding is partially imaged. Subcutaneous edema is partially imaged. The conus terminates at upper margin of the L1. L1-L2: Disc bulge, small extrusion, annular fissure, endplate hypertrophy, and bilateral facet arthropathy. Mild spinal canal stenosis and moderate right lateral recess narrowing. Mild right foraminal narrowing. L2-L3: Disc bulge and bilateral facet arthropathy. No spinal canal stenosis. Minimal foraminal narrowing. L3-L4: Disc bulge, annular fissure, endplate hypertrophy, and bilateral facet arthropathy with mild/minimal spinal canal stenosis. Moderate to severe right and mild-moderate left lateral recess narrowing. Mild bilateral foraminal narrowing. L4-L5: Disc bulge, annular fissure, endplate hypertrophy, and bilateral facet arthropathy. Mild spinal canal stenosis with moderate to severe bilateral lateral recess narrowing. Mild left-sided foraminal narrowing. L5-S1: Disc bulge, annular fissure, endplate hypertrophy, and bilateral facet arthropathy. Mild spinal canal stenosis with [id number] bilateral lateral recess narrowing. Trace foraminal narrowing accounting for positioning. Mild enhancement noted of the left facet. IMPRESSION: 1. No discitis or osteomyelitis by imaging. No drainable abscess. 2. Multilevel degenerative disc changes, with multifocal spinal stenosis. 3. Multifocal facet arthropathy. Mild enhancement includes left L5-S1 facet joint and may reflect mild inflammatory arthropathy at this time. This document has been electronically signed by: Farooq Aceves MD on 01/04/2025 22:08:22
[2025-01-04 18:53] VITALS: BP 150/83; PULSE 110; O2SAT 98
[2025-01-04 18:55] VITALS: BP 128/73; PULSE 115; RESP 20; TEMP 36.9; O2SAT 98; BMI 28.3
--- NOTE | 2025-01-04 19:40 | ED.GENADULT ---
HPI - General Adult General Chief complaint: General Medical Stated complaint: shivering but not cold unknown fever, pink skin Time Seen by Provider: 01/04/25 19:10 Source: patient Mode of arrival: ambulatory Limitations: no limitations History of Present Illness ED Provider: DR. Holt HPI narrative: 49-year-old male presented for evaluation of chills, subjective fever. Patient is complaining of nonproductive cough but patient with chronic cough secondary to COPD clear production, no sick contacts, patient is also complaining of back pain, patient was chronic back pain required multiple pain management epidural injections, continence, no stool incontinence, no weakness or numbness. Multiple scratches on both lower extremities from his indoor dog, no redness or hotness of the skin. No headache, no blurry vision, no CP, no abdominal pain, no dysuria, no frequency urination, no photophobia, no neck stiffness. Related Data Home Medications ?Medication ?Instructions ?Recorded ?Confirmed amitriptyline 25 mg tablet 50 mg PO BEDTIME 01/01/23 12/07/24 escitalopram oxalate 5 mg tablet 5 mg PO DAILY 07/08/23 12/07/24 hydroxyzine HCl 25 mg tablet 25 mg PO TID 10/07/23 12/07/24 topiramate 100 mg tablet 300 mg PO DAILY 10/07/23 12/07/24 ipratropium 20 mcg-albuterol 100 1 puff inhalation Q6H PRN 10/27/23 12/07/24 mcg/actuation mist for inhalation (Combivent Respimat) Previous Rx's ?Medication ?Instructions ?Recorded triamcinolone acetonide 0.1 % 1 appl topical DAILY 30 days #80 04/21/22 topical cream grams bupropion HCl 150 mg 24 hr tablet, 150 mg PO QAM 90 days #90 tabs 05/06/22 extended release aripiprazole 5 mg tablet 5 mg PO DAILY 90 days #90 tabs 05/11/22 bupropion HCl 300 mg 24 hr tablet, 300 mg PO DAILY 90 days #90 tabs 05/11/22 extended release isosorbide mononitrate 30 mg 30 mg PO DAILY 90 days #90 tabs 04/25/24 tablet,extended release 24 hr clotrimazole 1 % topical cream 1 appl topical BID 2 weeks #45 07/06/24 grams morphine 15 mg immediate release 15 mg PO Q6H PRN pain #12 tabs 08/28/24 tablet ondansetron 4 mg disintegrating 4 mg PO Q8H PRN nausea and 08/28/24 tablet vomiting #20 tabs aspirin 81 mg tablet,delayed 81 mg PO DAILY 90 days #90 tabs 10/10/24 release (Adult Low Dose Aspirin) cholecalciferol (vitamin D3) 25 25 mcg PO DAILY 90 days #90 caps 10/10/24 mcg (1,000 unit) capsule loratadine 10 mg tablet 10 mg PO DAILY 90 days #90 tabs 10/10/24 ketorolac 10 mg tablet 10 mg PO Q6H PRN pain #20 tabs 10/11/24 methocarbamol 750 mg tablet 1,500 mg (2 x 750 mg) PO Q8H PRN 10/11/24 pain, moderate #20 tabs cyanocobalamin (vitamin B-12) 1,000 mcg PO DAILY 90 days #90 tabs 10/12/24 1,000 mcg tablet carvedilol 25 mg tablet 25 mg PO Q12H 90 days #180 tabs 10/25/24 duloxetine 30 mg capsule,delayed 30 mg PO DAILY 90 days #90 caps 10/26/24 release amlodipine 10 mg tablet 10 mg PO DAILY 90 days #90 tabs 11/11/24 bisacodyl 5 mg tablet,delayed 5 mg PO ONCE 1 day #4 tabs 11/23/24 release polyethylene glycol 3350 17 238 g PO ONCE #238 grams 11/23/24 gram/dose oral powder (Miralax) pyridoxine (vitamin B6) 50 mg 50 mg PO DAILY 90 days #90 tabs 12/02/24 tablet tamsulosin 0.4 mg capsule 0.4 mg PO BEDTIME 90 days #90 caps 12/02/24 rosuvastatin 40 mg tablet 40 mg PO DAILY 90 days #90 tabs 12/11/24 indomethacin 25 mg capsule 25 mg PO BID 30 days #60 caps 12/19/24 gabapentin 300 mg capsule 300 mg PO TID 30 days #90 caps 12/21/24 umeclidinium 62.5 mcg-vilanterol 1 inh inhalation Q24H 30 days #60 12/21/24 25 mcg/actuation powdr for ea inhalation (Anoro Ellipta) metformin 500 mg tablet 500 mg PO BID 90 days #180 tabs 12/23/24 omeprazole 20 mg capsule,delayed 20 mg PO BID 90 days #180 caps 12/30/24 release pramipexole 0.5 mg tablet 0.5 mg PO BEDTIME 30 days #30 tabs 12/30/24 cefuroxime axetil 500 mg tablet 500 mg PO BID 7 days #14 tabs 01/05/25 Allergies Allergy/AdvReac Type Severity Reaction Status Date / Time erythromycin base Allergy Mild Confusion Verified 01/04/25 19:00 clonidine AdvReac Severe Vomiting Verified 01/04/25 19:00 Review of Systems Review of Systems: All other systems are reviewed and are negative Constitutional: Reports as per HPI and Reports no additional constitutional complaints Eyes: Reports as per HPI and Reports no additional eye complaints Reports system reviewed and no additional complaints, except as documented Cardiovascular: Reports as per HPI and Reports no additional cardiovascular complaints Respiratory: Reports as per HPI and Reports no additional respiratory complaints Gastrointestinal: Reports as per HPI and Reports no additional gastrointestinal complaints Genitourinary: Reports no additional female genitourinary complaints Musculoskeletal: Reports no additional musculoskeletal complaints Skin/Breast: Reports system reviewed and no additional complaints, except as docu Psychiatric: Reports no additional psychiatric complaints Endocrine: Reports no additional endocrine complaints Hematologic/Lymphatic: Reports no additional hematologic/lymphatic complaints Allergic/Immunologic: Reports no additional allergic/immunologic complaints Reports system reviewed and no additional complaints, except as documented and Reports Abnormal speech present [facility] Past Medical History Medical History Obesity (BMI 30-39.9) Difficulty swallowing Screening for prostate cancer Screening for colon cancer Adult general medical exam Laboratory exam ordered as part of routine general medical examination Imbalance Left-sided chest wall pain Dizziness Fatigue Unsteady gait Yeast infection of the skin Cough Abnormal lung sounds Abnormal CT lung screening Headache Puncture wound of scalp Left knee pain Sacroiliitis Osteoarthritis of knee Infection of skin Exposure to potential infection Urinary hesitancy Decreased visual acuity Low vitamin B12 level Morbid obesity Elevated fasting glucose Chest discomfort COPD (chronic obstructive pulmonary disease) KELSY on CPAP Torn rotator cuff Diabetes High cholesterol Hypertension Surgical History Stented coronary artery History of carpal tunnel surgery Family History Family History Other Mental health disorder Substance abuse Social History Social History Housing: House Alcohol intake: never Patient Tobacco Use Status: Former Tobacco user Smoked in Last 30 Days: No e-Cigarette/Vaping Use: Never Used Second Hand Smoke Exposure: No Use of substances other than those prescribed or required for medical reasons: No Advance Directives: No Advance Directives Information Provided: No Do you have a plan to hurt others: No Plan service: No Current occupational status: unemployed Current occupational exposures/hazards: No Cognitive needs: No Hearing needs: No Vision needs: Yes Physical Exam ED Vital Signs: Vital Signs - 24 hr 01/04/25 18:55 01/04/25 20:14 01/04/25 21:38 Temperature 98.5 F 98.3 F Pulse Rate 115 H 107 H 106 H Respiratory Rate 20 20 20 Blood Pressure 128/73 133/80 113/77 Pulse Oximetry 98 94 97 Oxygen Delivery Method Room Air Room Air Room Air BMI result Body Mass Index 28.3 Vital signs have been reviewed and appear to be correct. Blood pressure elevated. Heart rate normal. Respiratory rate normal. Temperature normal. Oxygen saturation normal. Appearance: Alert. Oriented X3. No acute distress. Head: Normal external exam. Normocephalic. Atraumatic. No Gee signs noted. No raccoon eyes noted Eyes: PERRLA. EOMI. Conjunctiva and sclera normal. Eyelids normal. ENT: TM's Normal. Pharynx normal. Uvula midline. Moist mucous membranes. No trismus noted. No drooling noted. No muffled voice noted. Neck: Normal inspection. Neck supple. FROM. No adenopathy. Thyroid Normal. No meningeal signs. No neck mass noted. CVS: Normal heart rate and rhythm. Heart sound normal. No murmurs noted. Pulses normal throughout. Respiratory: No respiratory distress. Painless inspiration. Breath sounds normal. No wheezes/rales/rhonchi noted. Chest nontender. No accessory muscle usage noted or decreased air movement noted. Abdomen: Soft and nontender. Bowel sounds normal in all 4 quadrants. No distention noted. No organomegaly noted. No visible injury noted. Back: No CVA tenderness. Full range of motion noted. Skin: Skin warm and dry. Normal skin color. Normal skin turgor. No rashes/lesions/lacerations noted. Extremities: No lower extremity edema. Diffuse bilateral superficial scratches with no redness, hotness, or abscess Neuro: Mental status: Normal attention, orientation, memory, and affect. Cranial nerves: Pupils are equal, round and reactive to light, EOMI, visual fletcher are fall, face is symmetric, facial sensations are normal. Motor examination normal muscle tone, strength to 4 extremities. DTR are +2, planter's are flexor. Sensory exam; normal coordination, no ataxia, gait stable. Cerebellar exam: Ohkodp-oh-razn and [id number]-up-[id number] is normal. Extrapyramidal system: No tremors, no rigidity with normal facial expressions. Pronator drift not present Course Reevaluation(s) Reevaluation #1: 49-year-old male came in for evaluation of chills, had a low-grade fever in the ED 100.8, patient has been complaining of coughing he thinks because of the COPD, no exposure to sick contacts, no recent travel. Patient with chronic back pain had previous multiple epidural injections for pain control which may raise the suspicion for epidural abscess or diskitis. Negative lumbar spine MRI. Otherwise negative UA. Chest x-ray is showing pneumonitis. Will start the patient on Z-Aleksey. And follow-up with PCP. Blood culture is pending. Time: 23:54 Medications Administered Discontinued Medications Generic Name Dose Route Start Last Admin Trade Name Freq PRN Reason Stop Dose Admin Acetaminophen 650 mg 01/04/25 21:59 01/04/25 22:09 Acetaminophen 325 Mg Tablet PO 01/04/25 22:00 650 mg ONCE ONE Administration Ceftriaxone Sodium 1 gm 01/04/25 19:38 01/04/25 19:59 Ceftriaxone Sodium 1 Gm Vial IVPUSH 01/04/25 19:39 1 gm ONCE ONE Administration Gadobutrol 10 ml 01/04/25 21:13 01/04/25 21:14 Gadobutrol 10 Ml Vial IVPUSH 01/04/25 21:14 10 ml ONCE ONE Administration Sodium Chloride 1,000 mls @ 999 mls/hr 01/04/25 19:23 01/04/25 22:09 Ns IV 01/04/25 20:23 Infused .Q1H1M ONE Infusion Medical Decision Making Differential Diagnosis Differential Diagnoses: The differential diagnosis associated with the presentation includes (Pneumonia, pneumothorax, pleural effusion, epidural abscess, lumbar diskitis, UTI, viral infection, Skin cellulitis.) Admission/Observation Consideration of admission/observation: Escalation of care including admission/observation considered Lab Data MDM Lab Attestation statement: I reviewed the patient's lab results. 01/04/25 19:48 01/04/25 19:48 Labs: Lab Results 01/04/25 Range/Units 19:48 WBC 7.9 (4.8-10.8) X10*3/uL RBC 4.92 (4.60-5.80) X10*6/uL Hgb 14.4 (14.0-18.0) g/dl Hct 43.1 (42.0-52.0) % MCV 87.6 (80.0-98.0) fL MCH 29.3 (27.0-33.0) pg MCHC 33.4 (31.0-36.0) g/dl RDW 13.2 (11.0-16.0) % Plt Count 160 (160-400) X10*3/uL MPV 10.3 (9.4-12.4) fL Immature Gran % (Auto) 0.4 (0.0-0.4) % Neut % (Auto) 87.0 H (45-73) % Lymph % (Auto) 7.8 L (20-40) % [place] % (Auto) 3.3 (2-11) % Eos % (Auto) 1.1 (0-4) % Baso % (Auto) 0.4 (0-2) % Lymph # (Auto) 0.6 L (1.2-4.9) X10*3/uL [place] # (Auto) 0.3 (0.1-1.2) X10*3/uL Eos # (Auto) 0.1 (0.0-0.4) X10*3/uL Baso # (Auto) 0.0 (0.0-0.2) X10*3/uL Abs Immat Gran (auto) 0.03 (0.00-0.03) X10*3/uL Absolute Neuts (auto) 6.9 (2.0-8.3) x10*3/uL Absolute Nucleated RBC 0.000 (0.0-0.012) X10*3/uL Nucleated RBC % (auto) 0.0 (0.0-0.2) /100WBC Sodium 137 (135-145) mmol/L Potassium 4.3 (3.3-5.1) mmol/L Chloride 107 (96-108) mmol/L Carbon Dioxide 25 (22-29) mmol/L Anion Gap 9 L (12-20) BUN 20 H (9-16) mg/dL Creatinine 1.36 (0.5-1.4) mg/dL Estim Creat Clear Calc 68.0 Estimated GFR 56 Random Glucose 134 H (60-115) mg/dL Lactic Acid 1.2 (0.5-2.0) mmol/L Calcium 9.7 D (8.4-10.2) mg/dL Total Bilirubin 0.4 (0.0-1.0) mg/dL Direct Bilirubin 0.1 (0.0-0.5) mg/dL AST 55 H (5-37) U/L ALT 40 (0-40) U/L Alkaline Phosphatase 87 (39-117) U/L Total Protein 7.8 (6.5-8.0) g/dL Albumin 4.5 (3.5-5.0) g/dL Lipase 49 (8-78) U/L Urine Color Yellow Urine Appearance Clear Urine pH 5.5 (5.0-9.0) Ur Specific [place] 1.010 (1.005-1.025) Urine Protein Negative (Neg-Trace) mg/dL Urine Glucose (UA) Negative (Negative) mg/dL Urine Ketones Negative (Negative) mg/dL Urine Blood Negative (Negative) Urine Nitrite Negative (Negative) Ur Leukocyte Esterase Negative (Negative) Independent Interpretation I performed an independent interpretation of an: Plain X-Ray (Chest:Mild bibasilar atelectasis/pneumonitis.) and MRI (Lumbar spine:1. No discitis or osteomyelitis by imaging. No drainable abscess. 2. Multilevel degenerative disc changes, with multifocal spinal stenosis. 3. Multifocal facet arthropathy. Mild enhancement includes left L5-S1 facet joint and may reflect mild inflammatory arthropathy at this time.) Radiology Impression Discussion of test interpretation with radiology: I have reviewed the radiologist's reading. Discharge Plan Discharge Clinical Impression: Pneumonitis, Pneumonia Patient Disposition: Home, Self-Care Instructions: Community Acquired Pneumonia (ED) Prescriptions: New cefuroxime axetil 500 mg tablet 500 mg PO BID 7 Days Qty: 14 0RF No Action triamcinolone acetonide 0.1 % cream 1 appl topical DAILY 30 Days Qty: 80 1RF bupropion HCl 150 mg tablet extended release 24 hr 150 mg PO QAM 90 Days Qty: 90 2RF bupropion HCl 300 mg tablet extended release 24 hr 300 mg PO DAILY 90 Days Qty: 90 2RF aripiprazole 5 mg tablet 5 mg PO DAILY 90 Days Qty: 90 2RF isosorbide mononitrate 30 mg tablet extended release 24 hr 30 mg PO DAILY 90 Days Qty: 90 3RF cholecalciferol (vitamin D3) 25 mcg (1,000 unit) capsule 25 mcg PO DAILY 90 Days Qty: 90 0RF aspirin [Adult Low Dose Aspirin] 81 mg tablet,delayed release (DR/EC) 81 mg PO DAILY 90 Days Qty: 90 0RF loratadine 10 mg tablet 10 mg PO DAILY 90 Days Qty: 90 0RF cyanocobalamin (vitamin B-12) 1,000 mcg tablet 1,000 mcg PO DAILY 90 Days Qty: 90 0RF carvedilol 25 mg tablet 25 mg PO Q12H 90 Days Qty: 180 0RF Rx Instructions: must administer with a meal/food duloxetine 30 mg capsule,delayed release(DR/EC) 30 mg PO DAILY 90 Days Qty: 90 0RF amlodipine 10 mg tablet 10 mg PO DAILY 90 Days Qty: 90 0RF tamsulosin 0.4 mg capsule 0.4 mg PO BEDTIME 90 Days Qty: 90 3RF pyridoxine (vitamin B6) 50 mg tablet 50 mg PO DAILY 90 Days Qty: 90 3RF rosuvastatin 40 mg tablet 40 mg PO DAILY 90 Days Qty: 90 0RF indomethacin 25 mg capsule 25 mg PO BID 30 Days Qty: 60 0RF Rx Instructions: administer with food or milk gabapentin 300 mg capsule 300 mg PO TID 30 Days Qty: 90 0RF Anoro Ellipta 62.5-25 mcg/actuation blister with device 1 inh inhalation Q24H 30 Days Qty: 60 0RF metformin 500 mg tablet 500 mg PO BID 90 Days Qty: 180 0RF omeprazole 20 mg capsule,delayed release(DR/EC) 20 mg PO BID 90 Days Qty: 180 0RF pramipexole 0.5 mg tablet 0.5 mg PO BEDTIME 30 Days Qty: 30 0RF ketorolac 10 mg tablet 10 mg PO Q6H PRN (Reason: pain) Qty: 20 0RF Rx Instructions: maximum total duration of 5 days from all oral, intranasal, or parenteral formulations. The patient intramuscular dose of Toradol here in the emergency department. methocarbamol 750 mg tablet 1,500 mg PO Q8H PRN (Reason: pain, moderate) Qty: 20 0RF morphine 15 mg tablet 15 mg PO Q6H PRN (Reason: pain) Qty: 12 0RF Rx Instructions: partial fill okay; Partial Fill upon patient request. ondansetron 4 mg tablet,disintegrating 4 mg PO Q8H PRN (Reason: nausea and vomiting) Qty: 20 0RF escitalopram oxalate 5 mg tablet 5 mg PO DAILY amitriptyline 25 mg tablet 50 mg PO BEDTIME topiramate 100 mg tablet 300 mg PO DAILY Rx Instructions: Take 1 tab in the morning and 2 at bedtime. hydroxyzine HCl 25 mg tablet 25 mg PO TID Combivent Respimat 20-100 mcg/actuation mist 1 puff inhalation Q6H PRN clotrimazole 1 % cream 1 appl topical BID 14 Days Qty: 45 1RF bisacodyl 5 mg tablet,delayed release (DR/EC) 5 mg PO ONCE 1 Days Qty: 4 0RF Rx Instructions: per colonoscopy instructions polyethylene glycol 3350 [Miralax] 17 gram/dose powder 238 g PO ONCE Qty: 238 0RF Rx Instructions: per colonoscopy prep instructions Print Language: [place]
[2025-01-04] MEDS: 0.9 % Sodium Chloride 1,000 ML 999 ML IV (19:52)
[2025-01-04] MEDS: cefTRIAXone sodium 1 GM VIAL IVPUSH (19:59)
[2025-01-04 20:00] LABS: MANUAL DIFF FLAG NO
[2025-01-04 20:03] LABS: Basophils Percent Auto 0.4 % (0-2); Eosinophils Absolute Auto 0.1 X10*3/uL (0.0-0.4); Eosinophils Percent Auto 1.1 % (0-4); Hematocrit 43.1 % (42.0-52.0); Hemoglobin 14.4 g/dl (14.0-18.0); Imm Gran Abs Auto 0.03 X10*3/uL (0.00-0.03); Imm Gran Pct Auto 0.4 % (0.0-0.4); Lymphocytes Absolute Auto 0.6 X10*3/uL (1.2-4.9); Lymphocytes Percent Auto 7.8 % (20-40); Mean Corpuscular HGB Conc 33.4 g/dl (31.0-36.0); Mean Corpuscular Hemoglobin 29.3 pg (27.0-33.0); Mean Corpuscular Volume 87.6 fL (80.0-98.0); Mean Platelet Volume 10.3 fL (9.4-12.4); Monocytes Absolute Auto 0.3 X10*3/uL (0.1-1.2); Monocytes Percent Auto 3.3 % (2-11); Neutrophils Absolute Auto 6.9 x10*3/uL (2.0-8.3); Platelet Count 160 X10*3/uL (160-400); Red Blood Count 4.92 X10*6/uL (4.60-5.80); Red Cell Distribution Width 13.2 % (11.0-16.0); White Blood Count 7.9 X10*3/uL (4.8-10.8)
[2025-01-04 20:10] LABS: Lactic Acid 1.2 mmol/L (0.5-2.0)
[2025-01-04 20:14] VITALS: BP 133/80; PULSE 107; RESP 20; O2SAT 94
[2025-01-04 20:15] LABS: Alanine Aminotransferase 40 U/L (0-40); Albumin Level 4.5 g/dL (3.5-5.0); Alkaline Phosphatase 87 U/L (39-117); Anion Gap 9 (12-20); Aspartate Amino Transferase 55 U/L (5-37); Bilirubin Direct 0.1 mg/dL (0.0-0.5); Bilirubin Total 0.4 mg/dL (0.0-1.0); Blood Urea Nitrogen 20 mg/dL (9-16); Calcium 9.7 mg/dL (8.4-10.2); Carbon Dioxide 25 mmol/L (22-29); Chloride 107 mmol/L (96-108); Estimated Glomerular Filt Rate 56; Glucose Random 134 mg/dL (60-115); Lipase 49 U/L (8-78); Potassium 4.3 mmol/L (3.3-5.1); Sodium 137 mmol/L (135-145); Total Protein 7.8 g/dL (6.5-8.0)
[2025-01-04 20:19] LABS: Appearance Urine Clear; Color Urine Yellow; Glucose Urine UA Negative (Negative); Leukocyte Esterase Urine Negative (Negative); Nitrite Urine Negative (Negative); PH 5.5 (5.0-9.0); Urine Blood Negative (Negative); Urine Ketones Negative (Negative); Urine Protein Negative (Neg-Trace)
--- NOTE | 2025-01-04 20:19 | PC.NURSE ---
Pt. off to MRI, pt. being dc from monitor and IVF.
[2025-01-04] MEDS: gadobutroL 10 ML VIAL IVPUSH (21:14)
--- NOTE | 2025-01-04 21:34 | PC.NURSE ---
PT returned from MRI, IVF 0.9% NS running.
[2025-01-04 21:38] VITALS: BP 113/77; PULSE 106; RESP 20; TEMP 36.8; O2SAT 97
--- NOTE | 2025-01-04 21:59 | PC.NURSE ---
This nurse took a rectal temp on patient, patient had a temp of 100.9f, Provider Jonathon notified Verbal order for 650 mg of Tylenol.
[2025-01-04] MEDS: Acetaminophen 325 MG TABLET 650 MG PO (22:09)
--- NOTE | 2025-01-04 23:13 | PC.NURSE ---
warm blanket provided for comfort per pt request
[2025-01-05 00:29] VITALS: BP 103/65; PULSE 97; RESP 17; TEMP 36.6; O2SAT 96
== END 2025-01-05 00:29 | disposition home or self-care (01) ==
PROVIDERS: Emergency Provider Emergency Medicine
DX: J18.9 Pneumonia, unspecified organism (principal); R05.9 Cough, unspecified; G89.4 Chronic pain syndrome; M54.50 Low back pain, unspecified; R50.9 Fever, unspecified; I10 Essential (primary) hypertension; E78.5 Hyperlipidemia, unspecified; E11.9 Type 2 diabetes mellitus without complications; Z79.82 Long term (current) use of aspirin; Z79.899 Other long term (current) drug therapy; Z79.02 Long term (current) use of antithrombotics/antiplatelets; Z79.84 Long term (current) use of oral hypoglycemic drugs
CPT/HCPCS: 36415; 71045; 72158; 80048; 80076; 81003; 83605; 83690; 85025; 87040; 96361; 96374; 96375; 99285; A9585; J0696

== ENCOUNTER → 2025-01-04 19:24 | Outpatient (BNV) | payer OTHER, SELFPAY | PROVIDERS: Emergency Provider Emergency Medicine; Visit Provider Radiology Neuroradiology | DX: M48.062 Spinal stenosis, lumbar region with neurogenic claudication (principal) | CPT/HCPCS: 72158 ==

== ENCOUNTER → 2025-01-13 08:07 | Outpatient (BNV) | payer OTHER, SELFPAY | PROVIDERS: PCP Family Medicine; Visit Provider Radiology Diagnostic Radiology | DX: R22.1 Localized swelling, mass and lump, neck (principal) | CPT/HCPCS: 70543 ==

== ENCOUNTER 2025-01-13 09:03 | Outpatient (REF) | payer OTHER, SELFPAY ==
--- NOTE | ~2025-01-13 | MR_ITS ---
EXAMINATION: MR ORBITS FACE AND NECK WITH AND WITHOUT CONTRAST. CLINICAL INFORMATION: Follow-up left neck mass, surveillance imaging. COMPARISON: 07/28/2024 MRI orbits/face/neck. MRI brain without contrast 10/01/2023. TECHNIQUE: MRI of the orbits/face/neck was obtained using routine sequences without and with contrast. Intravenous contrast: Gadavist 10 mL. FINDINGS: Motion degradation on multiple pulsing sequences. This limits sensitivity the exam. Centered within the left pterygopalatine fossa, there is redemonstration of an oval circumscribed 1.6 x 1.1 x 1.3 cm T2 hyperintense, T1 isointense, nonenhancing lesion, showing no diffusion restriction, rather facilitated diffusion, located just inferior to left foramen rotundum. There is resultant expansion of the left pterygopalatine fossa and sphenopalatine foramen. 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 Cystic minor salivary tumor is not excluded. It is stable in appearance and size. No additional abnormal facial or neck mass. No abnormal lymph nodes are present. No abnormal enhancement is present. Small mucous retention cyst left maxillary antrum. Paranasal sinuses otherwise grossly normally pneumatized. Left nasal septal deviation with spurring. Globes and orbital contents appear normal. Heel Burnisher spaces appear normal. The parotid glands included in the imaging appear normal. 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 There is a small amount of fluid in the right mastoid tip. Mastoids and tympanic spaces are otherwise pneumatized normally. Imaged intracranial contents demonstrate no abnormal signal or enhancement. No mass effect or edema. Flow voids preserved within the skull base. Normal sella and midline structures. There are degenerative changes in the bilateral TM joints. No suspicious abnormal bone marrow signal. MR/MR orbits face neck wo/w con IMPRESSION: 1. Stable oval circumscribed T1 isointense, T2 hyperintense, nonenhancing lesion measuring 1.6 x 1.1 x 1.3 cm centered within the left pterygopalatine fossa. 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 Differential would include a salivary rest cystic tumor such as Warthin's tumor or pleomorphic adenoma. It has benign features and is stable without growth. 2. No abnormal lymphadenopathy or additional head/neck mass. No abnormal enhancement. Electronically signed by: Jose Meyer MD 01/13/2025 11:07 AM EDT
--- OUTSIDE RECORDS SUMMARY | 2025-01-13 09:12 | XMS_ITS | Data Portability ---
Author Organization [place] - [facility], [facility] Address [address] [place] [id number] Assessment No assessment recorded. Plan of Treatment Reminders Order Date Submit Date Provider Last Modified By Organization Details Last Modified Time Details Appointments None recorded. Lab None recorded. 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 2023 024 [id number] 2 [facility], [address], [place], [address], 4 12:21:10 Procedures None recorded. 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 Procedures Surgical History Date Name Laterality Status Provider Name and Address Organization Details Recorded Time 01/20/2024 FFL_RE completed BERNARDA BELL MD 100 [facility] [address], [place], [address], [facility] 01/20/2024 09:14:05 Imaging Results None recorded. Procedure Notes None recorded. Medical Equipment None [...] Updated DateTime 01/20/2024 182.88 cm 35.3 kg/m2 477132.02 g Kat Major [place] - [facility] 01/20/2024 09:04:31 Social History None recorded. Functional Status None recorded. Mental Status None recorded. Family History Nothing Reported. Medical History No medical history recorded. Past Encounters Encounter ID Performer Location Encounter Start Date Encounter Closed Date Diagnosis/Indication Diagnosis SNOMED-CT Code Diagnosis ICD10 Code Diagnosis Note [id number] BERNARDA BELL MD [facility] [address] [phone] 01/20/2024 08:46:56 01/20/2024 09:20:43 Dysphagia 84836593 R13.10 Laryngosco py was normal. Mild. Recommend small bites and washing down with fluid and to call if it worsens. 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 BERNARDA BELL MD [address] [place] [address], [place], [phone], [place] - [facility] 01/20/2024 09:23:32
[2025-01-13] MEDS: gadobutroL 10 ML VIAL IVPUSH (09:47)
== END 2025-01-13 09:04 | disposition home or self-care (01) ==
LOC: HO.MRI 09:03
PROVIDERS: PCP Family Medicine; Visit Provider Otolaryngology
DX: R22.1 Localized swelling, mass and lump, neck (principal)
CPT/HCPCS: 70543; A9585

== ENCOUNTER 2025-01-16 08:57 | Outpatient (AMB) | payer OTHER, SELFPAY ==
--- NOTE | 2025-01-16 08:59 | A.OFFPC_ITS ---
Vital Signs 01/16/25 09:04 Height 5 ft 7 in Weight 298 lb BMI 46.7 BP 124/70 Blood Pressure Location Lt brachial Position Sitting Respiration 12 Pulse 76 Pulse Source Pulse Oximeter Temp 96.9 F Temp Source Oral Pulse Oximetry (%) 96 Oxygen Delivery Method Room Air Intake Visit Reasons: [facility] for pneumonia on 01/04. Dr. 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 Required: No Allergies erythromycin base Allergy (Mild, Verified 01/16/25 09:23) Confusion clonidine Adverse Reaction (Severe, Verified 01/16/25 09:23) Vomiting Medication List - Last Reconciled 01/16/25 by Quynh Dowd, [facility]- amitriptyline 50 mg PO BEDTIME amlodipine 10 mg PO DAILY 90 days aripiprazole 5 mg PO DAILY 90 days aspirin (Adult Low Dose Aspirin) 81 mg PO DAILY 90 days bisacodyl 5 mg PO ONCE 1 day bupropion HCl XL 150 mg PO QAM 90 days bupropion HCl XL 300 mg PO DAILY 90 days carvedilol 25 mg PO Q12H 90 days cefuroxime axetil 500 mg PO BID 7 days cholecalciferol (vitamin D3) 25 mcg PO DAILY 90 days clotrimazole 1% 1 appl topical BID 2 weeks cyanocobalamin (vitamin B-12) 1,000 mcg PO DAILY 90 days duloxetine 30 mg PO DAILY 90 days escitalopram oxalate 5 mg PO DAILY gabapentin 300 mg PO TID 30 days hydroxyzine HCl 25 mg PO TID indomethacin 25 mg PO BID 30 days ipratropium-albuterol 20-100 mcg/actuation (Combivent Respimat) 1 puff inhalation Q6H PRN isosorbide mononitrate ER 30 mg PO DAILY 90 days ketorolac 10 mg PO Q6H PRN loratadine 10 mg PO DAILY 90 days metformin 500 mg PO BID 90 days methocarbamol 1,500 mg (2 x 750 mg) PO Q8H PRN morphine 15 mg PO Q6H PRN omeprazole 20 mg PO BID 90 days ondansetron 4 mg PO Q8H PRN polyethylene glycol 3350 (Miralax) 238 grams PO ONCE pramipexole 0.5 mg PO BEDTIME 30 days pyridoxine (vitamin B6) 50 mg PO DAILY 90 days rosuvastatin 40 mg PO DAILY 90 days semaglutide (Ozempic) 0.25 mg (0.368 mL) subcut QWEEK tamsulosin 0.4 mg PO BEDTIME 90 days topiramate 300 mg PO DAILY triamcinolone acetonide 0.1% 1 appl topical DAILY 30 days umeclidinium-vilanterol 62.5-25 mcg/actuation (Anoro Ellipta) 1 inh inhalation Q24H 30 days Tobacco use date assessed: 01/16/25 Dental Screening Dental Screen Date: 01/16/25 Did you have a dental visit in the last 12 months?: Yes Did you have a dental problem in the last 6 months where you did not have access to dental care?: No Was dental information given to patient?: Patient has dentist HPI HPI Comments History of Present Illness Details 50 y/o M here today for ED FU: [facility] 01/04/25, dx w/ PNA, see below for details. Started ABT last Thu Will complete in 1.5 days Sx: cont to cough about the same; unsure about fever cannot test. Active w/ [facility] Pulm, next appt 3 months. Using combivent PRN when i remember and Anoro QD Exam: Awake alert NAD RRR LS dim throughout, no coughing Plan: Complete ABT Use Combivent QID, cont anoro Repeat CXR 1 mo to ensure resolution Edu on reasons to seek additional care. Total time spent caring for the patient today was 30 minutes. This includes time spent before the visit reviewing the chart, time spent during the visit, and time spent after the visit on documentation, reviewing laboratory results, diagnostic imaging, medications, performing a medically necessary evaluation, counseling on diagnoses, care coordination, ordering appropriate tests, ordering appropriate medications, review of tests performed by other providers, reporting test results with the patient, communication with other healthcare providers. Reevaluation(s) Reevaluation #1: 49-year-old male came in for evaluation of chills, had a low-grade fever in the ED 100.8, patient has been complaining of coughing he thinks because of the COPD, no exposure to sick contacts, no recent travel. Patient with chronic back pain had previous multiple epidural injections for pain control which may raise the suspicion for epidural abscess or diskitis. Negative lumbar spine MRI. Otherwise negative UA. Chest x-ray is showing pneumonitis. Will start the patient on Z-Aleksye. And follow-up with PCP. Blood culture is pending. Time: 23:54 Medications Administered Discontinued Medic ations Generic Name Dose Route Start Last Admin Trade Name Nilesh PRN Reason Stop Dose Admin Acetaminophen 650 mg 01/04/25 21:59 01/04/25 22:09 Acetaminophen 32 5 Mg Tablet PO 01/04/25 22:00 650 mg ONCE ONE Administration Ceftriaxone Sodium 1 gm 01/04/25 19:38 01/04/25 19:59 Ceftriaxone Sodi um 1 Gm Vial IVPUSH 01/04/25 19:39 1 gm ONCE ONE Administration Gadobutrol 10 ml 01/04/25 21:13 01/04/25 21:14 Gadobutrol 10 Ml Vial IVPUSH 01/04/25 21:14 10 ml ONCE ONE Administration Sodium Chloride 1,000 mls @ 999 m ls/hr 01/04/25 19:23 01/04/25 22:09 Ns IV 01/04/25 20:23 Infused .Q1H1M ONE Infusion Medical Decision Making Differential Diagnosis Differential Diagnoses: The differential diagnosis associated with the presentation includes (Pneumonia, pneumothorax, pleural effusion, epidural abscess, lumbar diskitis, UTI, viral infection, Skin cellulitis.) Admission/Observation Consideration of admission/observation: Escalation of care including admission/observation considered Lab Data MDM Lab Attestation statement: I reviewed the patient's lab results. 01/04/25 19:48 01/04/25 19:48 Labs: Lab Results 01/04/25 Range/Units 19:48 WBC 7.9 (4.8-10.8) X10*3 /uL RBC 4.92 (4.60-5.80) X10* 6/uL Hgb 14.4 (14.0-18.0) g/dl Hct 43.1 (42.0-52.0) % MCV 87.6 (80.0-98.0) fL MCH 29.3 (27.0-33.0) pg MCHC 33.4 (31.0-36.0) g/dl RDW 13.2 (11.0-16.0) % Plt Count 160 (160-400) X10*3/ uL MPV 10.3 (9.4-12.4) fL Immature Gran % (A uto) 0.4 (0.0-0.4) % Neut % (Auto) 87.0 H (45-73) % Lymph % (Auto) 7.8 L (20-40) % [place] % (Auto) 3.3 (2-11) % Eos % (Auto) 1.1 (0-4) % Baso % (Auto) 0.4 (0-2) % Lymph # (Auto) 0.6 L (1.2-4.9) X10*3/ uL [place] # (Auto) 0.3 (0.1-1.2) X10*3/ uL Eos # (Auto) 0.1 (0.0-0.4) X10*3/ uL Baso # (Auto) 0.0 (0.0-0.2) X10*3/ uL Abs Immat Gran (au to) 0.03 (0.00-0.03) X10* 3/uL Absolute Neuts (au to) 6.9 (2.0-8.3) x10*3/ uL Absolute Nucleated RBC 0.000 (0.0-0.012) X10* 3/uL Nucleated RBC % (a uto) 0.0 (0.0-0.2) /100WB C Sodium 137 (135-145) mmol/L Potassium 4.3 (3.3-5.1) mmol/L Chloride 107 (96-108) mmol/L Carbon Dioxide 25 (22-29) mmol/L Anion Gap 9 L (12-20) BUN 20 H (9-16) mg/dL Creatinine 1.36 (0.5-1.4) mg/dL Estim Creat Clear Calc 68.0 Estimated GFR 56 Random Glucose 134 H (60-115) mg/dL Lactic Acid 1.2 (0.5-2.0) mmol/L Calcium 9.7 D (8.4-10.2) mg/dL Total Bilirubin 0.4 (0.0-1.0) mg/dL Direct Bilirubin 0.1 (0.0-0.5) mg/dL AST 55 H (5-37) U/L ALT 40 (0-40) U/L Alkaline Phosphata se 87 (39-117) U/L Total Protein 7.8 (6.5-8.0) g/dL Albumin 4.5 (3.5-5.0) g/dL Lipase 49 (8-78) U/L Urine Color Yellow Urine Appearance Clear Urine pH 5.5 (5.0-9.0) Ur Specific Gravit y 1.010 (1.005-1.025) Urine Protein Negative (Neg-Trace) mg/d L Urine Glucose (UA) Negative (Negative) mg/dL Urine Ketones Negative (Negative) mg/dL Urine Blood Negative (Negative) Urine Nitrite Negative (Negative) Ur Leukocyte Willow ase Negative (Negative) Independent Interpretation I performed an independent interpretation of an: Plain X-Ray (Chest:Mild bibasilar atelectasis/pneumonitis.) and MRI (Lumbar spine:1. No discitis or osteomyelitis by imaging. No drainable abscess. 2. Multilevel degenerative disc changes, with multifocal spinal stenosis. 3. Multifocal facet arthropathy. Mild enhancement includes left L5-S1 facet joint and may reflect mild inflammatory arthropathy at this time.) Radiology Impression Discussion of test interpretation with radiology: I have reviewed the radiologist's reading. Discharge Plan Discharge Clinical Impression: Pneumonitis, Pneumonia Patient Disposition: Home, Self-Care Instructions: Community Acquired Pneumonia (ED) Prescriptions: New cefuroxime axetil 500 mg tablet 500 mg PO BID 7 Days Qty: 14 0RF PFSH Medical History Obesity (BMI 30-39.9) Difficulty swallowing Screening for prostate cancer Screening for colon cancer Adult general medical exam Laboratory exam ordered as part of routine general medical examination Imbalance Left-sided chest wall pain Dizziness Fatigue Unsteady gait Yeast infection of the skin Cough Abnormal lung sounds Abnormal CT lung screening Headache Puncture wound of scalp Left knee pain Sacroiliitis Osteoarthritis of knee Infection of skin Exposure to potential infection Urinary hesitancy Decreased visual acuity Low vitamin B12 level Morbid obesity Elevated fasting glucose Chest discomfort COPD (chronic obstructive pulmonary disease) KELSY on CPAP Torn rotator cuff Diabetes High cholesterol Hypertension Surgical History Stented coronary artery History of carpal tunnel surgery Family History Other Mental health disorder Substance abuse Social History Housing: House Alcohol intake: never Patient Tobacco Use Status: Former Tobacco user e-Cigarette/Vaping Use: Never Used Second Hand Smoke Exposure: No service: No Current occupational status: unemployed Current occupational exposures/hazards: No Cognitive needs: No Hearing needs: No Vision needs: Yes Questionnaire Thrive Questionnaire Date Thrive assessed: 11/14/24 I am a: Patient What is your living situation today?: I have a steady place to live Within the past 12 months, did the food you bought not last and you didn't have the money to get more?: Never true Within the past 12 months, did you worry whether your food would run out before you got money to buy more?: Never true Do you have trouble paying for medicines?: No Do you have trouble getting transportation to medical appointments?: No Do you have trouble paying your heating and electricity bill?: No Do you have trouble taking care of your child, family member or friend?: No Do you have trouble with day-to-day activities such as bathing, preparing meals, shopping, managing finances, etc.?: I choose not to answer this question Are you currently unemployed and looking for a job?: Yes Are you interested in more education?: No Please select the resources that you would like help with: Transportation Currently or been in a relationship where the following occur: No concerns reported THRIVE Score: 0 LAMBERTO-7 AMB Questionnaire LAMBERTO-7 Date LAMBERTO - 7 assessed: 11/14/24 Source: Developed by Drs. Arnoldo Carreno, Dyan Edwards, Alvarez Jose and colleagues, with an educational shanna from [employer]. Physical exam (Primary Care) Vital Signs: Last Vital Signs Temp 96.9 F 01/16/25 09:04 Pulse 76 01/16/25 09:04 Resp 12 01/16/25 09:04 BP 124/70 01/16/25 09:04 Pulse Ox 96 01/16/25 09:04 Oxygen Delivery Method Room Air 01/16/25 09:04 BMI result Body Mass Index 46.7 Tobacco/Smoking Status: Tobacco use Status Tobacco use date assessed 01/16/25 01/16/25 09:02 Patient Tobacco Use Status Former Tobacco user 01/16/25 09:02 e-Cigarette/Vaping Use Never Used 01/16/25 09:02 Thrive Assessment: Date of Thrive Assessment Date Thrive assessed 11/14/24 01/16/25 09:02 Currently or been in a relationship where the following occur: No concerns reported Coding Level of Care Code Est Pt Level 4 (60959) Complex EM visit Add On G2211 Diagnoses Hospital discharge follow-up Z09 Pneumonia due to infectious organism, unspecified laterality, unspecified part of lung J18.9 Pneumonia type: due to unspecified organism Laterality: unspecified laterality Lung location: unspecified part of lung Assessment & Plan Assessment & Plan (1) Hospital discharge follow-up: Code(s): Z09 - Encounter for follow-up examination after completed treatment for condit ions other than malignant neoplasm (2) Pneumonia: Code(s): J18.9 - Pneumonia, unspecified organism Category: Medical Qualifiers: Pneumonia type: due to unspecified organism Laterality: unspecified laterality Lung location: unspecified part of lung Qualified Code(s): J18.9 - Pneumonia, unspecified organism Plan . Orders: Orders XR chest 2V 1 Month J18.9 - Pneumonia, unspecified organism
[2025-01-16 09:04] VITALS: BP 124/70; PULSE 76; RESP 12; TEMP 36.1; O2SAT 96; BMI 46.7
--- OUTSIDE RECORDS SUMMARY | 2025-01-16 09:34 | XMS_ITS | Data Portability ---
Author Organization [place] [facility], Allergy Address [address] [place] [id number] Assessment No assessment recorded. Plan of Treatment Reminders Order Date Submit Date Provider Last Modified By Organization Details Last Modified Time Details Appointments None recorded. Lab None recorded. 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 2023 024 [id number] 2 [facility], [address] [facility], [facility], [place], [address], 4 12:21:10 Procedures None recorded. 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 Procedures Surgical History Date Name Laterality Status Provider Name and Address Organization Details Recorded Time 01/20/2024 FFL_RE completed BERNARDA BELL MD [address] [facility] [address], [place], [address], [facility] - [facility] 01/20/2024 09:14:05 Imaging Results None recorded. Procedure [...] Updated DateTime 01/20/2024 182.88 cm 35.3 kg/m2 085167.[address] - [facility] 01/20/2024 09:04:31 Social History None recorded. Functional Status None recorded. Mental Status None recorded. Family History Nothing Reported. Medical History No medical history recorded. Past Encounters Encounter ID Performer Location Encounter Start Date Encounter Closed Date Diagnosis/Indication Diagnosis SNOMED-CT Code Diagnosis ICD10 Code Diagnosis Note [id number] BERNARDA BELL MD [facility] [address] [phone] 01/20/2024 08:46:56 01/20/2024 09:20:43 Dysphagia 57838101 R13.10 Laryngosco py was normal. Mild. Recommend small bites and washing down with fluid and to call if it worsens. 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 BERNARDA BELL MD [address] [place] [address], [place], [address], [facility] - [facility] 01/20/2024 09:23:32
== END 2025-01-16 09:35 | disposition home or self-care (01) ==
LOC: HO.HMCFM 08:58
PROVIDERS: PCP Family Medicine; Visit Provider Nurse Practitioner Family
DX: Z09 Encounter for follow-up examination after completed treatment for conditions other than malignant neoplasm (principal); J18.9 Pneumonia, unspecified organism

== ENCOUNTER → 2025-01-16 08:57 | Outpatient (BNVA) | payer OTHER, SELFPAY | PROVIDERS: PCP Family Medicine; Visit Provider Nurse Practitioner Family | DX: E11.9 Type 2 diabetes mellitus without complications (principal); J44.9 Chronic obstructive pulmonary disease, unspecified; J18.9 Pneumonia, unspecified organism | CPT/HCPCS: 99212 ==

== ENCOUNTER 2025-02-02 08:01 | Day surgery (SDC) | payer OTHER, SELFPAY ==
--- NOTE | 2025-02-01 10:02 | P.CONAN_ITS ---
Documented by User: Jennifer Vasquez NP 02/01/25 10:09 HPI - Anesthesia Eval Consult details Narrative: 50yo M for Upper Endoscopy and Colonoscopy Follows [facility] Cardiology for CAD s/p stent 2018 [facility] ED with pna 12/2024 - tx with Zpak Anesthesia Pre-Procedure Meds Is the patient on any of the following meds?: GLP1/DPP4 PMFSH Active Problems Active Problems: All Active Problems Obesity (BMI 30-39.9) (Acute) Difficulty swallowing (Acute) Elevated liver enzymes (Acute) Mild anemia (Acute) Screening for prostate cancer (Acute) Screening for colon cancer (Acute) Adult general medical exam (Acute) Kidney stone (Chronic) Abnormal brain MRI (Acute) Chronic pain syndrome (Acute) Sacroiliac joint dysfunction of both sides (Acute) Right lumbar radiculitis (Acute) Lumbar disc herniation (Acute) Discogenic pain (Acute) Lumbar radiculopathy (Acute) Carpal tunnel syndrome (Acute) Osteoarthritis of left knee (Acute) Stented coronary artery (Acute) COPD (chronic obstructive pulmonary disease) (Acute) KELSY on CPAP (Acute) Smoker (Acute) Eczema (Acute) GERD (gastroesophageal reflux disease) (Acute) Migraines (Acute) Diabetes (Acute) Neuropathic pain (Acute) Anxiety with depression (Acute) Restless leg syndrome (Acute) Hyperlipidemia (Acute) Coronary artery disease (Acute) Hypertension (Acute) Past Medical History Medical History Obesity (BMI 30-39.9) Difficulty swallowing Screening for prostate cancer Screening for colon cancer Adult general medical exam Laboratory exam ordered as part of routine general medical examination Imbalance Left-sided chest wall pain Dizziness Fatigue Unsteady gait Yeast infection of the skin Cough Abnormal lung sounds Abnormal CT lung screening Headache Puncture wound of scalp Left knee pain Sacroiliitis Osteoarthritis of knee Infection of skin Exposure to potential infection Urinary hesitancy Decreased visual acuity Low vitamin B12 level Morbid obesity Elevated fasting glucose Chest discomfort COPD (chronic obstructive pulmonary disease) KELSY on CPAP Torn rotator cuff Diabetes High cholesterol Hypertension Family History Family History Other Mental health disorder Substance abuse Surgical History Surgical History Stented coronary artery History of carpal tunnel surgery Social History Social History Household Members Other:: roommate Housing: House Are you a primary skin care specialist to a significant other at home: No Do you presently have visiting nurse or other home services: No Alcohol intake: never Patient Tobacco Use Status: Former Tobacco user e-Cigarette/Vaping Use: Never Used Second Hand Smoke Exposure: No Have you been hit, kicked, punched, or otherwise hurt by someone within the past year? If so, by whom?: No Are you DNR?: No Advance Directives: No Advance Directives Information Provided: Yes Poor oral hygiene: No service: No Current occupational status: unemployed Current occupational exposures/hazards: No Cognitive needs: No Hearing needs: No Vision needs: Yes Meds Allergies Allergy/AdvReac Type Severity Reaction Status Date / Time erythromycin base Allergy Mild Confusion Verified 02/02/25 08:46 clonidine AdvReac Severe Vomiting Verified 02/02/25 08:46 Home Medications ?Medication ?Instructions ?Recorded ?Confirmed ?Last Taken ?Type amitriptyline 25 mg tablet 50 mg PO BEDTIME 01/01/23 0 02/02/25 Unknown History escitalopram oxalate 5 mg tablet 5 mg PO DAILY 3 02/02/25 Unknown History hydroxyzine HCl 25 mg tablet 25 mg PO TID 10/07/2305/20 Unknown History topiramate 100 mg tablet 300 mg PO DAILY 10/07/2305/20 Unknown History ipratropium 20 mcg-albuterol 100 1 puff inhalation Q6H PRN 10/27/23 02/02/25 Unknown History mcg/actuation mist for inhalation Bronchospasm (Combivent Respimat) Exam Pertinent Lab Results Pertinent Lab Results: Laboratory Tests 01/04/25 19:48 WBC 7.9 Hgb 14.4 Hct 43.1 Plt Count 160 Sodium 137 Potassium 4.3 Chloride 107 Carbon Dioxide 25 BUN 20 H Creatinine 1.36 Narrative Narrative: EKG 10/2024 EKG Details: EKG shows normal sinus rhythm with first-degree AV block with normal EKG Assessment and Plan Assessment Anesthesia Assessment: Chart Reviewed Documented by User: Mauricio Petersen MD 02/02/25 09:50 [facility] Past Medical History Medical History Obesity (BMI 30-39.9) Difficulty swallowing Screening for prostate cancer Screening for colon cancer Adult general medical exam Laboratory exam ordered as part of routine general medical examination Imbalance Left-sided chest wall pain Dizziness Fatigue Unsteady gait Yeast infection of the skin Cough Abnormal lung sounds Abnormal CT lung screening Headache Puncture wound of scalp Left knee pain Sacroiliitis Osteoarthritis of knee Infection of skin Exposure to potential infection Urinary hesitancy Decreased visual acuity Low vitamin B12 level Morbid obesity Elevated fasting glucose Chest discomfort COPD (chronic obstructive pulmonary disease) KELSY on CPAP Torn rotator cuff Diabetes High cholesterol Hypertension Functional capacity: independent ambulation Family History Family History Other Mental health disorder Substance abuse Family history of problems with anesthesia: No Surgical History Surgical History Stented coronary artery History of carpal tunnel surgery History of Problems with Anesthesia: No Social History Social History Household Members Other:: roommate Housing: House Are you a primary skin care specialist to a significant other at home: No Do you presently have visiting nurse or other home services: No Alcohol intake: never Patient Tobacco Use Status: Former Tobacco user e-Cigarette/Vaping Use: Never Used Second Hand Smoke Exposure: No Have you been hit, kicked, punched, or otherwise hurt by someone within the past year? If so, by whom?: No Are you DNR?: No Advance Directives: No Advance Directives Information Provided: Yes Poor oral hygiene: No service: No Current occupational status: unemployed Current occupational exposures/hazards: No Cognitive needs: No Hearing needs: No Vision needs: Yes Meds Allergies Allergy/AdvReac Type Severity Reaction Status Date / Time erythromycin base Allergy Mild Confusion Verified 02/02/25 08:46 clonidine AdvReac Severe Vomiting Verified 02/02/25 08:46 Home Medications ?Medication ?Instructions ?Recorded ?Confirmed ?Last Taken ?Type amitriptyline 25 mg tablet 50 mg PO BEDTIME 01/01/23 0 02/02/25 Unknown History escitalopram oxalate 5 mg tablet 5 mg PO DAILY 3 02/02/25 Unknown History hydroxyzine HCl 25 mg tablet 25 mg PO TID 10/07/2305/20 Unknown History topiramate 100 mg tablet 300 mg PO DAILY 10/07/2305/20 Unknown History ipratropium 20 mcg-albuterol 100 1 puff inhalation Q6H PRN 10/27/23 02/02/25 Unknown History mcg/actuation mist for inhalation Bronchospasm (Combivent Respimat) Exam Exam Date and Time: 02/02/2025 Airway Mallampati Class: III TM Dist: >3cm Neck ROM: Full Loose/Missing/Broken Teeth: No Heart: rrr Lungs: cta Other: normal Assessment and Plan Final Anesthetic Review Family History of Problems with Anesthesia: No History of Problems with Anesthesia: No Final Preanesthetic Review: No Changes in Pt Med Stat, Meds/Allgs Chart Reviewed, Consent Obtained/Reviewed and Anes Risks/Benef Reviewed Patient Risk: Low Procedure Risk: Low Anesthetic Plan Anesthetic Plan: MAC: Disposition: Standard PACU
[2025-02-02 08:44] VITALS: BMI 40.2
[2025-02-02] MEDS: Lactated Ringers 1,000 ML 100 ML IVCONT (08:51)
[2025-02-02 08:57] LABS: Glucose, Whole Blood 118 mg/dL (60-115)
[2025-02-02 09:02] VITALS: BP 110/81; PULSE 90; RESP 18; TEMP 36.6; O2SAT 95
--- NOTE | 2025-02-02 09:10 | MHC.SHP ---
Pre-Procedural Eval Section A - 24 Hr Update-Section A only Date of Service: 02/02/25 Section B - Complete if H&P > 30 days Chief Complaint: screening,gerd,dysphagia Details of Present Illness: Difficulty swallowing Screening for prostate cancer Screening for colon cancer Adult general medical exam Laboratory exam ordered as part of routine general medical examination Imbalance Left-sided chest wall pain Dizziness Fatigue Unsteady gait Yeast infection of the skin Cough Abnormal lung sounds Abnormal CT lung screening Headache Puncture wound of scalp Left knee pain Sacroiliitis Osteoarthritis of knee Infection of skin Exposure to potential infection Urinary hesitancy Decreased visual acuity Low vitamin B12 level Obesity (BMI 30-39.9) Morbid obesity Elevated fasting glucose Chest discomfort COPD (chronic obstructive pulmonary disease) KELSY on CPAP Torn rotator cuff Diabetes High cholesterol Hypertension Surgical History Stented coronary artery History of carpal tunnel surgery Present Medications: see Short Stay Collaborative assessment Allergies: Allergies Allergy/AdvReac Type Severity Reaction Status Date / Time erythromycin base Allergy Mild Confusion Verified 02/02/25 08:46 clonidine AdvReac Severe Vomiting Verified 02/02/25 08:46 Review of Systems Review of Systems Comment: Ten point ROS negative Exam Exam Comment: Gen appear: No acute distress HEENT: no icterus Chest: No overt resp distress Abd: soft, nontender, nondistended Psych: Stable affect, answering questions appropriately Neuro: A/Ox3 noted to move all extremities spontaneously Ext: no peripheral edema Plan Diagnosis/Plan: Unchanged I have reviewed the history and physical and performed a pertinent physical examination on my patient. No changes have occurred unless specified. Time Spent With Patient Time: Total time managing care of this patient today ____ minutes.
[2025-02-02 10:34] VITALS: BP 141/76; PULSE 90; RESP 18; TEMP 36.5; O2SAT 94
[2025-02-02 10:48] VITALS: BP 125/73; PULSE 88; RESP 18; O2SAT 94
--- NOTE | 2025-02-02 10:53 | P.OPN-COLO_ITS ---
Colonoscopy Operative Note Operative Note Date of Service: 02/02/25 Narrative: Procedure: Upper endoscopy and colonoscopy Indication: Dysphagia, screening Endoscopist: Faby Galicia MD Anesthesia Provider: Dr Petersen Anesthesia type: MAC Instrument: [id number] and [id number] EGD Procedure:?? The procedure, indications, preparation and potential complications were reviewed with the patient, who indicated understanding and gave written informed consent to proceed. The endoscope was introduced through the mouth, and advanced to the 2nd part of the duodenum. The mucosa was carefully examined on slow withdrawal of the endoscope. The patient tolerated the procedure well. There were no immediate complications.? EGD Findings:? * Esophagus:? Normal esophageal mucosa was noted. There was a single polyp middle esophagus. Cold forceps polypectomy was performed. The Z-line was at 35 cm and irregular to 34 cm. Cold forceps biopsies were taken from GE junction to rule out Powers's esophagus. If Powers's esophagus confirmed, it will also be set for tissue Cypher. There was moderate sized hiatal hernia with the diaphragmatic pinch at 40 cm. Cold forceps biopsies were also taken from middle and lower esophagus. * Stomach:? Normal gastric mucosa. Retroflexion was performed in the cardia that showed Hill grade 3 hiatal hernia. * Duodenum:? Normal duodenal mucosa. Additional intervention: Soft tip Savary wire was introduced through the biopsy channel of the gastroscope and advanced to the antrum. ?The gastroscope was then backed out. ?Savary Dre bougie was advanced over the guidewire and the esophagus was dilated to 20 mm with resistance felt. ?On relook, superficial tear was noted at 20 cm from incisors confirming successful dilation. ? Colonoscopy Procedure:? An abdominal binder was affixed to the lower abdomen. The patient was then turned for the colonoscopy. A digital rectal exam was performed which was normal.? A distal attachment cap was affixed to the tip of the scope and the colonoscope was then inserted through the anus and advanced through the colon and advanced to the cecum at 90 cm.? Appendiceal orifice and ileocecal valve were identified. Mucosa was carefully examined under high definition white light as the instrument was slowly withdrawn in a retrograde panoramic fashion. Retroflexion was performed in rectum. The procedure was not difficult. The quality of the prep was BBPS: 2+2+3 = adequate Withdrawal time 8 minutes Limitations: No limitations Findings: Mucosa: Normal colon mucosa. Protruding lesions: * large internal hemorrhoids without stigmata of recent bleeding. Impression: 1. Esophageal polyp (forceps polypectomy) 2. Cricopharyngeal narrowing (dilation) 3. Hiatal hernia 4. Normal stomach 5. Normal duodenum 6. Normal colon mucosa 7. Internal hemorrhoids Recommendations:?? * Follow-up path results * If no response to dilation today, will recommend referring for HREM * Consider barium esophagogram (not MBS) for evaluation of hiatal hernia * Avoid NSAIDs * Repeat colonoscopy for CRC screening in 5-7 years due to prep.
[2025-02-02 11:03] VITALS: BP 130/78; PULSE 88; RESP 16; TEMP 36.4; O2SAT 97
== END 2025-02-02 12:30 | disposition home or self-care (01) ==
PROVIDERS: PCP Family Medicine; Visit Provider Internal Medicine
PROC: (CPT 45378; principal; 2025-02-02 09:40)
DX: Z12.11 Encounter for screening for malignant neoplasm of colon (principal); K64.8 Other hemorrhoids; K21.9 Gastro-esophageal reflux disease without esophagitis; R13.19 Other dysphagia; K22.2 Esophageal obstruction; K22.81 Esophageal polyp; K44.9 Diaphragmatic hernia without obstruction or gangrene; K31.89 Other diseases of stomach and duodenum; R07.89 Other chest pain; I25.10 Atherosclerotic heart disease of native coronary artery without angina pectoris; Z95.5 Presence of coronary angioplasty implant and graft; I10 Essential (primary) hypertension; E78.00 Pure hypercholesterolemia, unspecified; R26.81 Unsteadiness on feet; R53.83 Other fatigue; E11.9 Type 2 diabetes mellitus without complications; G47.33 Obstructive sleep apnea (adult) (pediatric); Z79.51 Long term (current) use of inhaled steroids; Z79.82 Long term (current) use of aspirin; Z79.84 Long term (current) use of oral hypoglycemic drugs; Z79.899 Other long term (current) drug therapy; Z99.89 Dependence on other enabling machines and devices; Z88.1 Allergy status to other antibiotic agents; Z88.8 Allergy status to other drugs, medicaments and biological substances; Z98.890 Other specified postprocedural states; Z87.891 Personal history of nicotine dependence; Z56.0 Unemployment, unspecified
CPT/HCPCS: 45378; 43248; 43239; 82947; 88305; 88342; C1769; J2003; J2704; J3010

== ENCOUNTER → 2025-02-02 08:01 | Outpatient (BNV) | payer OTHER, SELFPAY | PROVIDERS: PCP Family Medicine; Visit Provider Internal Medicine | DX: K22.81 Esophageal polyp (principal); R13.13 Dysphagia, pharyngeal phase; K44.9 Diaphragmatic hernia without obstruction or gangrene; Z12.11 Encounter for screening for malignant neoplasm of colon | CPT/HCPCS: 43249; 43251; 45378 ==

== ENCOUNTER 2025-02-17 14:41 | Outpatient (AMB) | payer OTHER, SELFPAY ==
--- OUTSIDE RECORDS SUMMARY | 2025-02-17 14:44 | XMS_ITS | Data Portability ---
Author Organization [place] [facility], Allergy Address [address] [place] [phone] Assessment No assessment recorded. Plan of Treatment Reminders Order Date Submit Date Provider Last Modified By Organization Details Last Modified Time Details Appointments None recorded. Lab None recorded. 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 2023 024 [id number] 2 [facility], [address] [facility], [facility], [place], [address], 4 12:21:10 Procedures None recorded. Surgeries None [...] and Address Organization Details Recorded Time Dysphagia [id number] Active 024 BERNARDA Tellez MD [address] [facility],[place] [address], [place], 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 Procedures Surgical History Date Name Laterality Status Provider Name and Address Organization Details Recorded Time 01/20/2024 FFL_RE completed BERNARDA BELL MD [address] [facility] [address], [place], [address], [facility] - [facility] 01/20/2024 09:14:05 Imaging Results None recorded. Procedure [...] Updated DateTime 01/20/2024 182.88 cm 35.3 kg/m2 657696.02 g Kat Major [place] [facility] 01/20/2024 09:04:31 Social History None recorded. Functional Status None recorded. Mental Status None recorded. Family History Nothing Reported. Medical History No medical history recorded. Past Encounters Encounter ID Performer Location Encounter Start Date Encounter Closed Date Diagnosis/Indication Diagnosis SNOMED-CT Code Diagnosis ICD10 Code Diagnosis Note [id number] BERNARDA BELL MD [facility] [address] [phone] 01/20/2024 08:46:56 01/20/2024 09:20:43 Dysphagia 96842218 R13.10 Laryngosco py was normal. Mild. Recommend small bites and washing down with fluid and to call if it worsens. 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 He [...] 3 years ago. BERNARDA BELL MD [address] [place] [address], [place], [phone], [facility] - [facility] 01/20/2024 09:23:32
--- OUTSIDE RECORDS SUMMARY | 2025-02-17 14:44 | XMS_ITS | Clinical Summary ---
Author Organization [address] [facility] Address [address] [place] [address] Phone Care Team Providers Care Teacher Aide Clerical Name Role Phone Leland Trujillo MD Primary [...] Encounters Date Type Department Care Team Description 01/04/2025 8:30 AM EDT Office Visit Orthopedic Surgery [address] [phone] Joe Diaz, AIDA Controlled type 2 diabetes with neuropathy ([facility] V24, [facility] V28) (Primary Dx); Lumbosacral radiculopathy; Arthritis of both feet; Dermatophytosis, nail from Last 3 Months Immunizations Name Administration Dates Next Due Moderna SARS-CoV-2 COVID-19, mRNA, LNP-S, preservative free 12/01/2020,11/03/2020 Medical History Medical History Date Comments Diabetes mellitus ([facility] V24, [facility] V28) DX:Diabetes mellitus (HCC) Heart attack ([facility] V24, [facility] V28) DX:Heart attack (HCC) Mixed hyperlipidemia [...] - Inhaled Oxygen Concentration - - Weight 136 kg (300 lb) 01/04/2025 8:37 AM EDT Height 182.9 cm (6') 01/04/2025 8:37 AM EDT Body Mass Index 40.69 01/04/2025 8:37 AM EDT Plan of Treatment Upcoming Encounters Date Type Department Care Team (Late st Contact Info) Description 03/09/2025 10:00 AM EDT Office Visit Orthopedic Surgery - [place] [address] [facility] [address] [place] [phone] Joe Diaz DPM [address] [facility] [address] [place] [address] Health Maintenance Due Date Last Done Comments Diabetes: Annual Foot Exam 01/05/1986 Diabetes: Annual Retina Eye Exam 01/05/1986 Hepatitis B Vaccines (1 of 3 - 19+ 3-dose series) 01/05/1995 Pneumococcal Vaccine: Pediatrics (0 to 5 Years) and At-Risk Patients (6 to 49 Years) (2 of 2 - PCV) 12/04/2019 12/03/2018 Colorectal Cancer Screening: Colonoscopy 06/24/2022 HIV Screening 06/24/2022 Social Influencers of Health Screening 06/24/2022 Diabetes: Annual GFR (Glomerular Filtration Rate) 06/29/2022 06/29/2021, 01/27/2021, 12/03/2019, Additional history exists COVID-19 Vaccine ( season) 2024 12/01/2020, 11/03/2020 Depression Screening 07/27/2024 Diabetes: Annual Urine Albumin-Creatinine Ratio (uACR) 08/31/2024 02/03/2020, 02/03/2020, 02/26/2019 Diabetes: Blood Sugar Control Test (HGBA1C) 08/31/2024 06/29/2021 Hypertension/CHF/CAD Annual BMP Blood Test 08/31/2024 06/29/2021, 01/27/2021, 12/03/2019, Additional history exists Influenza Vaccine (#1) 2025 04/13/2020, 2018 Cholesterol Screening (Lipid Panel) 06/29/2026 06/29/2021 DTaP,Tdap,and [...] MAINTENANCE Final Result * Hemoglobin A1c (06/29/2021) Hemoglobin A1C 0.0 % Comment:abstracted, no inter [...] Result * Hepatitis C Screening (09/01/2020) Pathologist [facility] Hepatitis C Screening abstracted [facility] Provider HEALTH MAINTENANCE Final Result * Urine Albumin Creatinine Ratio (02/03/2020) Pathologist [facility] Urine Albumin Creatinine Ratio abstracted Historical Provider HEALTH MAINTENANCE Final Result from Last 3 Months or Most Recently Relevant to Health Maintenance Insurance [facility] [facility] Care Teams Teacher Aide Clerical Relationship Specialty Start Date End Date Leland Trujillo MD [address] [place] [address] Dr Michelle MA PCP - General 05/09/22
--- NOTE | 2025-02-17 14:52 | MHC.OFFVIS ---
Vital Signs 02/17/25 14:55 Height 6 ft Weight 290 lb BMI 39.3 BP 119/73 Blood Pressure Location Lt brachial Position Sitting Pulse 97 Pulse Oximetry (%) 95 Oxygen Delivery Method Room Air Intake Visit Reasons: s/p double Grayson Intake Note: Patient follow up for Coronary artery disease and EGD/Colonoscopy results. Patient cc: GERD med is helping, still having swallowing problems, and fatigue with dizziness. 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 Despite these prior assessments, symptoms have continued. On February 02, 2025, upper endoscopy and colonoscopy revealed a hiatal hernia and Rojas's esophagus. Dilation was performed for pharyngeal narrowing, but swallowing difficulty persists. Reflux is triggered by specific foods, notably tomato sauce, but not by citrus or spicy foods. Severity of reflux is variable, rated approximately 6/10 during episodes. Mina reports pills sometimes become lodged in the esophagus and dissolve unpleasantly. Bowel movements occur every 2-3 days, which is typical for the patient, and no other significant GI complaints are noted. Colonoscopy was otherwise normal except for large internal hemorrhoids and fair to adequate bowel prep. 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 Obesity (BMI 30-39.9) Difficulty swallowing Screening for prostate cancer Screening for colon cancer Adult general medical exam Laboratory exam ordered as part of routine general medical examination Imbalance Left-sided chest wall pain Dizziness Fatigue Unsteady gait Yeast infection of the skin Cough Abnormal lung sounds Abnormal CT lung screening Headache Puncture wound of scalp Left knee pain Sacroiliitis Osteoarthritis of knee Infection of skin Exposure to potential infection Urinary hesitancy Decreased visual acuity Low vitamin B12 level Morbid obesity Elevated fasting glucose Chest discomfort COPD (chronic obstructive pulmonary disease) KELSY on CPAP Torn rotator cuff Diabetes High cholesterol Hypertension Surgical History History of esophagogastroduodenoscopy (EGD) Hx of colonoscopy Stented coronary artery History of carpal tunnel surgery Family History Other Mental health disorder Substance abuse Social History Household Members Other:: roommate Housing: House Are you a primary care clinician to a significant other at home: No Do you presently have visiting nurse or other home services: No Alcohol intake: never Patient Tobacco Use Status: Former Tobacco user e-Cigarette/Vaping Use: Never Used Second Hand Smoke Exposure: No service: No Current occupational status: unemployed Current occupational exposures/hazards: No Cognitive needs: No Hearing needs: No Vision needs: Yes Review of Systems Const Reports as per HPI ENT Reports as per HPI Card Reports as per HPI Resp Reports as per HPI GI Reports as per HPI Reports as per HPI Physical Exam Vital Signs: Last Vital Signs Pulse 97 02/17/25 14:55 BP 119/73 02/17/25 14:55 Pulse Ox 95 02/17/25 14:55 Oxygen Delivery Method Room Air 02/17/25 14:55 BMI result Body Mass Index 39.3 Const General: healthy appearing, no acute distress and well developed Nutritional Appearance: average body habitus Orientation/consciousness: patient oriented x3 HEENT Head: Yes normal to inspection, Yes normocephalic and Yes atraumatic Face and sinus: Yes normal facial exam Eyes General: appearance normal, both eyes and all related structures Neck Neck: Yes normal visual inspection Resp Effort & Inspection: normal respiratory effort, able to speak in complete sentences, no tracheal deviation and symmetric chest movement Auscultation: clear to auscultation bilaterally Cardio Jugular venous distension: no JVD Rate: regular rate Rhythm: regular rhythm Heart sounds: S1 normal heart sound present, S2 normal heart sound present, no gallops and no murmurs GI Inspection: Yes normal to inspection, No distended, Yes obesity and Yes striae Palpation (GI): Soft to palpation, not firm, nontender and No hepatosplenomegaly present Auscultation: normal bowel sounds Neuro General: patient oriented x3 Gait exam (Neuro): Normal gait present Psych Appearance: grossly normal Mental Status: mental status grossly normal Speech and movement: Normal speech and movement present Affect: normal affect Attitude: cooperative Thought process: Normal thought process present Thought content: Normal thought content present Insight: Good insight present (Psych) Judgement: Good judgement present (Psych) Results Reviewed Results Reviewed: Operative Note Date of Service: 02/02/25 Narrative: Procedure: Upper endoscopy and colonoscopy Indication: Dysphagia, screening Endoscopist: Faby Galicia MD Anesthesia Provider: Dr Petersen Anesthesia type: MAC Instrument: [id number] and [id number] EGD Procedure:?? The procedure, indications, preparation and potential complications were reviewed with the patient, who indicated understanding and gave written informed consent to proceed. The endoscope was introduced through the mouth, and advanced to the 2nd part of the duodenum. The mucosa was carefully examined on slow withdrawal of the endoscope. The patient tolerated the procedure well. There were no immediate complications.? EGD Findings:? Esophagus:? Normal esophageal mucosa was noted. There was a single polyp middle esophagus. Cold forceps polypectomy was performed. The Z-line was at 35 cm and irregular to 34 cm. Cold forceps biopsies were taken from GE junction to rule out Rojas's esophagus. If Rojas's esophagus confirmed, it will also be set for tissue Cypher. There was moderate sized hiatal hernia with the diaphragmatic pinch at 40 cm. Cold forceps biopsies were also taken from middle and lower esophagus. Stomach:? Normal gastric mucosa. Retroflexion was performed in the cardia that showed Hill grade 3 hiatal hernia. Duodenum:? Normal duodenal mucosa. Additional intervention: Soft tip Savary wire was introduced through the biopsy channel of the gastroscope and advanced to the antrum. ?The gastroscope was then backed out. ?Savary Dre bougie was advanced over the guidewire and the esophagus was dilated to 20 mm with resistance felt. ?On relook, superficial tear was noted at 20 cm from incisors confirming successful dilation. ? Colonoscopy Procedure:? An abdominal binder was affixed to the lower abdomen. The patient was then turned for the colonoscopy. A digital rectal exam was performed which was normal.? A distal attachment cap was affixed to the tip of the scope and the colonoscope was then inserted through the anus and advanced through the colon and advanced to the cecum at 90 cm.? Appendiceal orifice and ileocecal valve were identified. Mucosa was carefully examined under high definition white light as the instrument was slowly withdrawn in a retrograde panoramic fashion. Retroflexion was performed in rectum. The procedure was not difficult. The quality of the prep was BBPS: 2+2+3 = adequate Withdrawal time 8 minutes Limitations: No limitations Findings: Mucosa: Normal colon mucosa. Protruding lesions: large internal hemorrhoids without stigmata of recent bleeding. Impression: 1. Esophageal polyp (forceps polypectomy) 2. Cricopharyngeal narrowing (dilation) 3. Hiatal hernia 4. Normal stomach 5. Normal duodenum 6. Normal colon mucosa 7. Internal hemorrhoids Recommendations:?? Follow-up path results If no response to dilation today, will recommend referring for HREM Consider barium esophagogram (not MBS) for evaluation of hiatal hernia Avoid NSAIDs Repeat colonoscopy for CRC screening in 5-7 years due to prep. PATHOLOGY Collected: 02/02/25 Location: .[facility] Received: 02/02/25 Diagnosis A. EG junction, biopsy: - Rojas esophagus with background moderate chronic inactive inflammation. - No dysplasia seen. - Squamous epithelium within normal limits. B. Esophagus, lower, biopsy: Squamous epithelium within normal limits; no inflammation seen. C. Esophagus, middle, biopsy: Squamous epithelium within normal limits; no inflammation seen. D. Esophagus, polypectomy: Superficial fragments of squamous epithelium within normal limits. Comment: Tissue Cypher results will be addended on part A. 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 Ongoing reflux and dysphagia increase risk for progression; requires acid suppression and surveillance to prevent complications. Additional Tests: Repeat swallow study to assess for ongoing structural or functional abnormalities; esophageal manometry to evaluate motility and pressure, given persistent symptoms despite prior dilation. Medications: Discontinue omeprazole; initiate pantoprazole 20 mg PO BID x12 weeks for improved acid suppression. Lifestyle Modifications: Avoid reflux triggers (acidic, fatty, spicy foods, large meals, lying down post-prandially); maintain upright position after eating; employ positional eating techniques. (2) Hiatal hernia: Code(s): K44.9 - Diaphragmatic hernia without obstruction or gangrene Category: Medical Plan: Identified on recent endoscopy; associated with ongoing dysphagia and reflux. Persistent symptoms post-dilation warrant further evaluation of hernia size and esophageal function. Additional Tests: as above Medications: Continue acid suppression as above to manage reflux related to hernia. Lifestyle Modifications: Well balance diet to promote regularity and weight loss. Continue small, well-chewed bites; alternate bites with sips of liquid; remain upright after meals. (3) Screening for colon cancer: Comment: 02/02/25 colonoscopy complete with adequate prep-Normal colon mucosa, large internal hemorrhoids. Recommendations for repeat in 5-7 years due to adequacy of prep. Code(s): Z12.11 - Encounter for screening for malignant neoplasm of colon Category: Medical Plan: Complete 02/02/25 normal with internal hemorrhoids. Due 2030 or earlier if clinically indicated. lifestyle modifications to promote regularity: -higher fiber diet, examples provided -adequate hydration with water -150 minutes of moderate intensity exercise per week Plan Follow-up in 3 months or sooner as needed Time: I spent a total of 20 minutes on the date of encounter which includes: Preparing to see the patient (reviewed previous documentation, test results and medical history) Performing a medically appropriate exam and/or evaluation Ordering medications, tests, and procedures Documenting clinical information in the health record Orders: Orders [place] barium swallow Today K44.9 - Diaphragmatic hernia without obstruction or gangrene, R13.19 - Other dysphagia Referrals Gastroenterology Referral K22.70 - Rojas's esophagus without dysplasia, R13.19 - Other dysphagia Medications: New pantoprazole Take 1 tablet twice daily. 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
[2025-02-17 14:55] VITALS: BP 119/73; PULSE 97; O2SAT 95; BMI 39.3
== END 2025-02-17 15:23 | disposition home or self-care (01) ==
LOC: HO.HGI 14:42
PROVIDERS: PCP Family Medicine; Visit Provider Nurse Practitioner Family
DX: K22.70 Barrett's esophagus without dysplasia (principal); K44.9 Diaphragmatic hernia without obstruction or gangrene
CPT/HCPCS: 99213

== ENCOUNTER → 2025-02-17 14:41 | Outpatient (BNVA) | payer OTHER, SELFPAY | PROVIDERS: PCP Family Medicine; Visit Provider Nurse Practitioner Family | DX: K22.70 Barrett's esophagus without dysplasia (principal); K44.9 Diaphragmatic hernia without obstruction or gangrene; Z12.11 Encounter for screening for malignant neoplasm of colon | CPT/HCPCS: 99212 ==

== ENCOUNTER 2025-04-05 10:52 | Outpatient (AMB) | payer OTHER, SELFPAY ==
--- NOTE | 2025-04-05 11:14 | MHC.OFFVIS ---
Vital Signs 04/05/25 11:15 Height 6 ft Intake Visit Reasons: 3m migraine Allergies erythromycin base Allergy (Mild, Verified 04/05/25 11:24) Confusion clonidine Adverse Reaction (Severe, Verified 04/05/25 11:24) Vomiting Medication List - Last Reconciled 04/05/25 by Fifi Singh CNP amitriptyline 50 mg PO BEDTIME amlodipine 10 mg PO DAILY 90 days aripiprazole 5 mg PO DAILY 90 days aspirin (Adult Low Dose Aspirin) 81 mg PO DAILY 90 days bupropion HCl XL 150 mg PO QAM 90 days bupropion HCl XL 300 mg PO DAILY 90 days carvedilol 25 mg PO Q12H 90 days cholecalciferol (vitamin D3) 25 mcg PO DAILY 90 days clotrimazole 1% 1 appl topical BID 2 weeks cyanocobalamin (vitamin B-12) 1,000 mcg PO DAILY 90 days duloxetine 30 mg PO DAILY 90 days escitalopram oxalate 5 mg PO DAILY gabapentin 300 mg PO TID 30 days hydroxyzine HCl 25 mg PO TID indomethacin 25 mg PO BID 30 days ipratropium-albuterol 20-100 mcg/actuation (Combivent Respimat) 1 puff inhalation Q6H PRN isosorbide mononitrate ER 30 mg PO DAILY 90 days ketorolac 10 mg PO Q6H PRN loratadine 10 mg PO DAILY 90 days metformin 500 mg PO BID 90 days pantoprazole 40 mg PO BID pramipexole 0.5 mg PO BEDTIME 30 days pyridoxine (vitamin B6) 50 mg PO DAILY 90 days rosuvastatin 40 mg PO DAILY 90 days semaglutide (Ozempic) 0.25 mg (0.368 mL) subcut QWEEK tamsulosin 0.4 mg PO BEDTIME 90 days topiramate 100 mg orally 1 tablet in the morning and 2 tablets at bedtime; 90 days triamcinolone acetonide 0.1% 1 appl topical DAILY 30 days umeclidinium-vilanterol 62.5-25 mcg/actuation (Anoro Ellipta) 1 inh inhalation Q24H 30 days HPI Comments Details: He was having mild headaches almost every day, no recent migraines. Headaches were associated with photophobia, sonophobia, and dizziness. Pain could be all over head. He was not taking any OTC medications for headaches. Sleep was up and down, using CPAP. Walking with cane, no falls. Following up with ENT in [place] yearly. Migraines 1-2x/month, lasting all day with photosensitivity. He has migraines since the age of 9. Migraines have increased over the years, occurring 2-3x/week, lasting all day with nausea and photophobia. Also gets quick stabbing pains for 1 sec off and on over left eyebrow. He uses indomethacin when necessary for the headache. No family history of migraine. He also has obstructive sleep apnea and wears a CPAP. Hands are getting numb, helped by braces at night. Has episodes of staggering and walking like a drunk if walks long distances, but after a few steps it can go away. Using a cane. [facility] Medical History (Updated 04/05/25 @ 11:18 by Ffii Singh CNP) Hiatal hernia Powers esophagus determined by biopsy Obesity (BMI 30-39.9) Difficulty swallowing Screening for prostate cancer Screening for colon cancer Adult general medical exam Laboratory exam ordered as part of routine general medical examination Imbalance Left-sided chest wall pain Dizziness Fatigue Unsteady gait Yeast infection of the skin Cough Abnormal lung sounds Abnormal CT lung screening Headache Puncture wound of scalp Left knee pain Sacroiliitis Osteoarthritis of knee Infection of skin Exposure to potential infection Urinary hesitancy Decreased visual acuity Low vitamin B12 level Morbid obesity Elevated fasting glucose Chest discomfort COPD (chronic obstructive pulmonary disease) KELSY on CPAP Torn rotator cuff Diabetes High cholesterol Hypertension Surgical History History of esophagogastroduodenoscopy (EGD) Hx of colonoscopy Stented coronary artery History of carpal tunnel surgery Family History Other Mental health disorder Substance abuse Social History Household Members Other:: roommate Housing: House Are you a primary resident care manager to a significant other at home: No Do you presently have visiting nurse or other home services: No Alcohol intake: never Patient Tobacco Use Status: Former Tobacco user e-Cigarette/Vaping Use: Never Used Second Hand Smoke Exposure: No service: No Current occupational status: unemployed Current occupational exposures/hazards: No Cognitive needs: No Hearing needs: No Vision needs: Yes Review of Systems Const Denies chills, Denies daytime sleepiness, Reports difficulty sleeping, Reports fatigue, Denies fever(s), Denies frequent falls, Reports headache(s), Denies increased appetite, Denies poor appetite, Denies snoring, Denies weakness, Denies weight gain and Denies weight loss Eyes Denies loss of vision ENT Denies vertigo, Reports dizziness, Reports headache(s) and Denies neck pain Card Denies chest pain at rest, Denies chest pain with activity, Denies syncope, Denies leg edema, Denies palpitations, Denies dyspnea and Denies dyspnea on exertion Resp Denies cough, Denies dyspnea, Denies dyspnea on exertion and Denies snoring GI Denies abdominal pain, Denies constipation, Denies heartburn, Denies diarrhea and Denies nausea Denies urinary frequency, Denies urinary incontinence and Denies urinary urgency Musc Denies abnormal gait, Denies back pain, Denies myalgias, Denies arthralgias, Denies neck pain, Denies numbness and Denies tingling Neuro Denies abnormal gait, Denies vertigo, Reports dizziness, Denies syncope, Denies frequent falls, Reports headache(s), Denies lack of coordination, Denies loss of vision, Reports memory loss, Denies numbness, Denies Other visual disturbances, Denies restless legs, Denies seizure-like activity, Denies tingling, Denies paresthesias, Reports tremor(s) and Denies weakness Psych Reports anxiety, Reports depression, Denies auditory hallucinations, Reports memory loss and Denies visual hallucinations Endo Reports fatigue and Denies palpitations Physical Exam Const Other: General Appearance:? normal, in no acute distress. Heart:? S1, S2 normal, no murmurs. Lungs:? clear anteriorly and posteriorly. Musculoskeletal:? normal. Extremities:? no edema. Psych:? alert, oriented, cognitive function intact, cooperative with exam. Neuro Other: Abnormal Neurological Findings:?Walking with cane. Mental Status: alert and oriented X 3. Normal attention, orientation, memory, and affect. Cranial Nerves: Pupils are equal, round, and reactive to light. External ocular muscles are intact. Visual fletcher are full, no ptosis. Face is symmetrical, no facial weakness or droop. Facial sensations are normal. Tongue protrudes in midline. Palate elevates symmetrically. Shoulder shrugging is normal Motor Examination: Normal muscle tone, bulk and strength. No atrophy or fasciculations. No drift of the extended upper extremities. DTR 2+. Plantars are flexor. Sensory Exam: Normal light touch, temperature, pinprick, vibration, and joint-position sensations. Rhomberg sign is absent. Coordination: No ataxia. No titubation. Gait Exam: With cane. Cerebellar Signs: [id number] is okay. Extrapyramidal System: No tremor, rigidity with normal facial expressions. No bradykinesia. No bradyphrenia. Normal arm swing and posture. No propulsion or retropulsion. Speech: Normal. Results Reviewed Results Reviewed: [address] [address] Magnetic Resonance Report Signed Patient: Mina Lopes MR#: [id number] : 1975 Acct:[id number] Age/Sex: 50 / M ADM Date: 01/13/25 Loc: HO.MRI Attending Dr: Guido Amor MD Ordering Physician: Guido Amor MD Date of Service: 01/13/25 Procedure(s): MR orbits face neck wo/w con Accession Number(s): [id number] cc: Guido Amor MD; Leland Trujillo MD~ EXAMINATION: MR ORBITS FACE AND NECK WITH AND WITHOUT CONTRAST. CLINICAL INFORMATION: Follow-up left neck mass, surveillance imaging. COMPARISON: 07/28/2024 MRI orbits/face/neck. MRI brain without contrast 10/01/2023. TECHNIQUE: MRI of the orbits/face/neck was obtained using routine sequences without and with contrast. Intravenous contrast: Gadavist 10 mL. FINDINGS: Motion degradation on multiple pulsing sequences. This limits sensitivity the exam. Centered within the left pterygopalatine fossa, there is redemonstration of an oval circumscribed 1.6 x 1.1 x 1.3 cm T2 hyperintense, T1 isointense, nonenhancing lesion, showing no diffusion restriction, rather facilitated diffusion, located just inferior to left foramen rotundum. There is resultant expansion of the left pterygopalatine fossa and sphenopalatine foramen. 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 Cystic minor salivary tumor is not excluded. It is stable in appearance and size. No additional abnormal facial or neck mass. No abnormal lymph nodes are present. No abnormal enhancement is present. Small mucous retention cyst left maxillary antrum. Paranasal sinuses otherwise grossly normally pneumatized. Left nasal septal deviation with spurring. Globes and orbital contents appear normal. [employer] spaces appear normal. The parotid glands included in the imaging appear normal. Normal facial soft tissues and suprazygomatic torsion spring coiling machine setter spaces. There is a small amount of fluid in the right mastoid tip. Mastoids and tympanic spaces are otherwise pneumatized normally. Imaged intracranial contents demonstrate no abnormal signal or enhancement. No mass effect or edema. Flow voids preserved within the skull base. Normal sella and midline structures. There are degenerative changes in the bilateral TM joints. No suspicious abnormal bone marrow signal. MR/MR orbits face neck wo/w con IMPRESSION: 1. Stable oval circumscribed T1 isointense, T2 hyperintense, nonenhancing lesion measuring 1.6 x 1.1 x 1.3 cm centered within the left pterygopalatine fossa. 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 Differential would include a salivary rest cystic tumor such as Warthin's tumor or pleomorphic adenoma. It has benign features and is stable without growth. 2. No abnormal lymphadenopathy or additional head/neck mass. No abnormal enhancement. Electronically signed by: Jose Meyer MD 01/13/2025 11:07 AM EDT [place] [address] Magnetic Resonance Report Signed Patient: Mina Lopes MR#: [id number] : 1975 Acct:[id number] Age/Sex: 49 / M ADM Date: 01/04/25 Loc: HO.ED Attending Dr: Ordering Physician: Esteban Holt MD Date of Service: 01/04/25 Procedure(s): MR lumbar spine wo/w con Accession Number(s): [id number] cc: Esteban Holt MD; Physician,Unknown ~ CLINICAL HISTORY: fever, back pain, previous epidural injection in November. patient motion on images, best obtainable MR lumbar spine with and without intravenous contrast Comparison: MRI of the lumbar spine from 03/31/2024 Findings: Worsening of the multifocal degenerative changes; particularly degenerative disc changes and facet arthropathy when compared to 03/31/2024. Normal heights of 5 lumbar vertebrae. No significant listhesis. Minimal endplate signal enhancement likely due to Modic type endplate changes including Modic type 1 at thoracolumbar junction, L4-L5, and L5-S1. Mild disc signal follows annular fissure at L5-S1 without definite discitis or osteomyelitis at this time. No drainable paraspinal fluid collection or intramuscular abscess at this time. Perinephric stranding is partially imaged. Subcutaneous edema is partially imaged. The conus terminates at upper margin of the L1. L1-L2: Disc bulge, small extrusion, annular fissure, endplate hypertrophy, and bilateral facet arthropathy. Mild spinal canal stenosis and moderate right lateral recess narrowing. Mild right foraminal narrowing. L2-L3: Disc bulge and bilateral facet arthropathy. No spinal canal stenosis. Minimal foraminal narrowing. L3-L4: Disc bulge, annular fissure, endplate hypertrophy, and bilateral facet arthropathy with mild/minimal spinal canal stenosis. Moderate to severe right and mild-moderate left lateral recess narrowing. Mild bilateral foraminal narrowing. L4-L5: Disc bulge, annular fissure, endplate hypertrophy, and bilateral facet arthropathy. Mild spinal canal stenosis with moderate to severe bilateral lateral recess narrowing. Mild left-sided foraminal narrowing. L5-S1: Disc bulge, annular fissure, endplate hypertrophy, and bilateral facet arthropathy. Mild spinal canal stenosis with [id number] bilateral lateral recess narrowing. Trace foraminal narrowing accounting for positioning. Mild enhancement noted of the left facet. IMPRESSION: 1. No discitis or osteomyelitis by imaging. No drainable abscess. 2. Multilevel degenerative disc changes, with multifocal spinal stenosis. 3. Multifocal facet arthropathy. Mild enhancement includes left L5-S1 facet joint and may reflect mild inflammatory arthropathy at this time. This document has been electronically signed by: Farooq Aceves MD on 01/04/2025 22:08:22 Dictated By: Farooq Aceves MD Signed By: <Electronically signed by Farooq Aceves MD in OV> 01/04/25 2206 Laboratory Tests 01/04/25 19:48 WBC 7.9 RBC 4.92 Hgb 14.4 Hct 43.1 MCV 87.6 MCH 29.3 MCHC 33.4 RDW 13.2 Plt Count 160 MPV 10.3 Sodium 137 Potassium 4.3 Chloride 107 Carbon Dioxide 25 Anion Gap 9 L BUN 20 H Creatinine 1.36 Estim Creat Clear Calc 68.0 Estimated GFR 56 Random Glucose 134 H Calcium 9.7 D Total Bilirubin 0.4 Direct Bilirubin 0.1 AST 55 H ALT 40 Alkaline Phosphatase 87 Total Protein 7.8 Albumin 4.5 Lipase 49 -- 12/09/22 NCV/EMG UE Mild to moderate right Carpal tunnel syndrome and a mild Carpal tunnel syndrome on the left. Compress at the elbow bilaterally right worse than left. Normal EMG in the right C5-T1 innervated muscles. MRI September 2023: The cerebellum is normal in appearance. Chronic lacunar infarct in the left centrum semiovale. Incidental note of a 1.5 x 1.2 cm ovoid lesion in the left pterygomaxillary fissure, for which differential considerations include a pleomorphic adenoma versus a cystic nerve sheath tumor Assessment & Plan Assessment & Plan (1) Migraines: Code(s): G43.909 - Migraine, unspecified, not intractable, without status migrainosus Category: Medical Qualifiers: Migraine type: unspecified Status migrainosus presence: without status migrainosus Intractability: not intractable Qualified Code(s): G43.909 - Migraine, unspecified, not intractable, without status migrainosus Plan: MRI results reviewed. Increase topiramate 100mg 2 tablet in the morning and 2 tablets at bedtime. Start meclizine 25mg 1 tablet twice a day as needed for dizziness, use/side effects reviewed #60 for 30 days. Continue amitriptyline 50mg 1 tablet at bedtime. (2) KELSY on CPAP: Comment: PATIENT DOES HAVE OBSTRUCTIVE SLEEP APNEA FOR MANY YEARS, HE HAS BEEN USING CPAP REGULARLY, PRESSURE 14 CM, FULLFACE MASK. HE BENEFITS FROM THE USE OF CPAP. COMPLIANCE IS GOOD. Code(s): G47.33 - Obstructive sleep apnea (adult) (pediatric); Z99.89 - Dependence on other enabling machines and devices Category: Medical (3) Restless leg syndrome: Comment: RESTLESS LEGS MOST LIKELY SECONDARY TO PERIPHERAL NEUROPATHY, PATIENT IS BEING TREATED WITH GABAPENTIN Code(s): G25.81 - Restless legs syndrome Category: Medical (4) Carpal tunnel syndrome: Code(s): G56.00 - Carpal tunnel syndrome, unspecified upper limb Category: Medical Qualifiers: Laterality: bilateral Qualified Code(s): G56.03 - Carpal tunnel syndrome, bilateral upper limbs Plan Meds tried: topiramate, amitriptyline Medications: New meclizine 25 mg PO BID PRN 60 tabs 1RF dizziness 30 days Changed From topiramate 100 mg orally 1 tablet in the morning and 2 tablets at bedtime; 90 days 270 tabs 1RF To topiramate 200 mg (2 x 100 mg) PO BID 360 tabs 1RF 90 days Coding Level of Care Code Est Pt Level 4 (01601) Diagnoses Migraine without status migrainosus, not intractable, unspecified migraine type G43.909 Migraine type: unspecified Status migrainosus presence: without status migrainosus Intractability: not intractable KELSY on CPAP G47.33; Z99.89 Restless leg syndrome G25.81 Bilateral carpal tunnel syndrome G56.03 Laterality: bilateral
== END 2025-04-05 11:36 | disposition home or self-care (01) ==
LOC: HO.HSM 10:53
PROVIDERS: PCP Family Medicine; Referring Provider Family Medicine; Visit Provider Registered Nurse
DX: G43.909 Migraine, unspecified, not intractable, without status migrainosus (principal); G47.33 Obstructive sleep apnea (adult) (pediatric); Z99.89 Dependence on other enabling machines and devices; G25.81 Restless legs syndrome; G56.03 Carpal tunnel syndrome, bilateral upper limbs
CPT/HCPCS: 99214

== ENCOUNTER → 2025-04-05 10:52 | Outpatient (BNVA) | payer OTHER, SELFPAY | PROVIDERS: PCP Family Medicine; Referring Provider Family Medicine; Visit Provider Registered Nurse | DX: G43.909 Migraine, unspecified, not intractable, without status migrainosus (principal); G47.33 Obstructive sleep apnea (adult) (pediatric); G25.81 Restless legs syndrome; G56.03 Carpal tunnel syndrome, bilateral upper limbs; Z99.89 Dependence on other enabling machines and devices; Z79.899 Other long term (current) drug therapy | CPT/HCPCS: 99212 ==

== ENCOUNTER 2025-04-11 10:03 | Outpatient (REF) | payer OTHER, SELFPAY ==
--- NOTE | ~2025-04-11 | XR_ITS ---
EXAMINATION: XR CHEST 2 VIEWS HISTORY: J18.9 - Pneumonia, unspecified organism COMPARISON: Comparison is made with the prior examination dated 01/04/2025. FINDINGS: PA and lateral views of the chest are submitted. The lungs are expanded and clear. There is no pleural effusion, pneumothorax, or pulmonary vascular congestion. The heart is normal in size. There is mild degenerative disc disease of the spine. XR/XR chest 2V IMPRESSION: No acute cardiopulmonary abnormality. Electronically signed by: Arnoldo Acevedo MD 04/11/2025 10:36 AM EDT
--- OUTSIDE RECORDS SUMMARY | 2025-04-11 13:09 | XMS_ITS | Clinical Summary ---
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 Name Role Phone Leland Trujillo MD Primary [...] Encounters Date Type Department Care Team Description 03/09/2025 10:00 AM EDT Office Visit Orthopedic Surgery - [address] [id number] Joe Diaz, AIDA Controlled type 2 diabetes with neuropathy ([facility] V24, [facility] V28) (Primary Dx); Lumbosacral radiculopathy; Arthritis of both feet; Dermatophytosis, nail from Last 3 Months Immunizations Name Administration Dates Next Due Moderna SARS-CoV-2 COVID-19, mRNA, LNP-S, preservative free 12/01/2020,11/03/2020 Medical History Medical History Date Comments Diabetes mellitus ([facility] V24, [facility] V28) DX:Diabetes mellitus (HCC) Heart attack ([facility] V24, [facility] V28) DX:Heart attack (HCC) Mixed [...] Care Team (Late st Contact Info) Description 05/11/2025 10:30 AM EDT Office Visit Orthopedic Surgery - [place] [address] [facility] [address] [place] [id number] Joe Diaz DPM [address] [address] Health Maintenance Due Date Last Done Comments [...] 06/29/2022 06/29/2021, 01/27/2021, 12/03/2019, Additional history exists Depression Screening 07/27/2024 Diabetes: Annual Urine Albumin-Creatinine Ratio (uACR) 08/31/2024 02/03/2020, 02/03/2020, 02/26/2019 Diabetes: Blood Sugar Control Test (HGBA1C) 08/31/2024 06/29/2021 Hypertension/CHF/CAD Annual BMP Blood Test 08/31/2024 06/29/2021, 01/27/2021, 12/03/2019, Additional history exists COVID-19 Vaccine ( season) 2025 12/01/2020, 11/03/2020 Influenza Vaccine (#1) 2025 04/13/2020, 2018 Cholesterol [...] Result * Hepatitis C Screening (09/01/2020) Pathologist [facility] Hepatitis C Screening abstracted [facility] Provider HEALTH MAINTENANCE Final Result * Urine Albumin Creatinine Ratio (02/03/2020) Pathologist [facility] Urine Albumin Creatinine Ratio abstracted Historical Provider HEALTH MAINTENANCE Final Result from Last 3 Months or Most Recently Relevant to Health Maintenance Insurance 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
== END 2025-04-11 10:04 | disposition home or self-care (01) ==
LOC: HO.XRAY 10:03
PROVIDERS: PCP Family Medicine; Visit Provider Nurse Practitioner Family
DX: J18.9 Pneumonia, unspecified organism (principal)
CPT/HCPCS: 71046

== ENCOUNTER → 2025-04-11 10:06 | Outpatient (BNV) | payer OTHER, SELFPAY | PROVIDERS: PCP Family Medicine; Visit Provider Radiology Diagnostic Radiology | DX: J18.9 Pneumonia, unspecified organism (principal) | CPT/HCPCS: 71046 ==

== ENCOUNTER 2025-04-19 09:22 | Outpatient (AMB) | payer OTHER, SELFPAY ==
--- NOTE | 2025-04-19 09:25 | A.OFFPC_ITS ---
Vital Signs 04/19/25 09:30 Height 6 ft Weight 303 lb BMI 41.1 BP 124/66 Blood Pressure Location Lt brachial Position Sitting Respiration 20 Pulse 98 Pulse Source Pulse Oximeter Temp 97.8 F Temp Source Oral Pulse Oximetry (%) 96 Oxygen Delivery Method Room Air Intake Visit Reasons: DM management needs A1C for 2024. Intake Note: patient here for DM management. 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 Technician Required: No Allergies erythromycin base Allergy (Mild, Verified 04/19/25 09:28) Confusion clonidine Adverse Reaction (Severe, Verified 04/19/25 09:28) Vomiting Medication List - Last Reconciled 04/19/25 by Leland Trujillo MD amitriptyline 50 mg PO BEDTIME amlodipine 10 mg PO DAILY 90 days aripiprazole 5 mg PO DAILY 90 days aspirin (Adult Low Dose Aspirin) 81 mg PO DAILY 90 days bupropion HCl XL 150 mg PO QAM 90 days bupropion HCl XL 300 mg PO DAILY 90 days carvedilol 25 mg PO Q12H 90 days cephalexin 500 mg PO Q12H 10 days cholecalciferol (vitamin D3) 25 mcg PO DAILY 90 days clotrimazole 1% 1 appl topical BID 2 weeks cyanocobalamin (vitamin B-12) 1,000 mcg PO DAILY 90 days duloxetine 30 mg PO DAILY 90 days escitalopram oxalate 5 mg PO DAILY gabapentin 300 mg PO TID 30 days hydroxyzine HCl 25 mg PO TID indomethacin 25 mg PO BID 30 days ipratropium-albuterol 20-100 mcg/actuation (Combivent Respimat) 1 puff inhalation Q6H PRN isosorbide mononitrate ER 30 mg PO DAILY 90 days loratadine 10 mg PO DAILY 90 days meclizine 25 mg PO BID PRN 30 days metformin tab1 (500 mg) a.m. and 1.5 tabs (750 mg) p.m. orally 2 times a day; 90 days pantoprazole 40 mg PO BID pramipexole 0.5 mg PO BEDTIME 30 days prednisone 40 mg (2 x 20 mg) PO DAILY 4 days pyridoxine (vitamin B6) 50 mg PO DAILY 90 days rosuvastatin 40 mg PO DAILY 90 days semaglutide (Ozempic) 0.25 mg (0.368 mL) subcut QWEEK tamsulosin 0.4 mg PO BEDTIME 90 days tirzepatide (weight loss) (Zepbound) 2.5 mg (0.5 mL) subcut QWEEK 28 days topiramate 200 mg (2 x 100 mg) PO BID 90 days triamcinolone acetonide 0.1% 1 appl topical DAILY 30 days umeclidinium-vilanterol 62.5-25 mcg/actuation (Anoro Ellipta) 1 inh inhalation Q24H 30 days Tobacco use date assessed: 04/19/25 Dental Screening Dental Screen Date: 04/19/25 Did you have a dental visit in the last 12 months?: Yes Did you have a dental problem in the last 6 months where you did not have access to dental care?: No Was dental information given to patient?: Patient has dentist HPI DM management needs A1C for 2024. HPI Details 50 y/o male presents to f/u diabetes. A1c today 04/19/25 7.1%. He is on Ozempic 0.25mg, metformin 500mg b.i.d. Blood pressure today 124/66, 98p. He is on carvedilol 25 mg, amlodipine 10mg Complaints of a recurrent rash. HPI Comments History of Present Illness Details Documentation assistance for Leland Trujillo MD, was provided by Bruce Salinas,? Certified Massage Therapist on 04/19/2025 at 9:49 AM EST. I, Dr. Trujillo, have read, observed, and verified documentation. ?? 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 Obesity (BMI 30-39.9) Difficulty swallowing Screening for prostate cancer Screening for colon cancer Adult general medical exam Laboratory exam ordered as part of routine general medical examination Imbalance Left-sided chest wall pain Dizziness Fatigue Unsteady gait Yeast infection of the skin Cough Abnormal CT lung screening Headache Puncture wound of scalp Left knee pain Sacroiliitis Osteoarthritis of knee Infection of skin Exposure to potential infection Urinary hesitancy Decreased visual acuity Low vitamin B12 level Morbid obesity Elevated fasting glucose Chest discomfort COPD (chronic obstructive pulmonary disease) KELSY on CPAP Torn rotator cuff Diabetes High cholesterol Hypertension Surgical History History of esophagogastroduodenoscopy (EGD) Hx of colonoscopy Stented coronary artery History of carpal tunnel surgery Family History Other Mental health disorder Substance abuse Social History Household Members Other:: roommate Housing: House Are you a primary transitional care liaison to a significant other at home: No Do you presently have visiting nurse or other home services: No Alcohol intake: never Patient Tobacco Use Status: Former Tobacco user e-Cigarette/Vaping Use: Never Used Second Hand Smoke Exposure: No service: No Current occupational status: unemployed Current occupational exposures/hazards: No Cognitive needs: Yes (CANE) Hearing needs: No Vision needs: Yes Questionnaire Thrive Questionnaire Date Thrive assessed: 11/14/24 I am a: Patient What is your living situation today?: I have a steady place to live Within the past 12 months, did the food you bought not last and you didn't have the money to get more?: Never true Within the past 12 months, did you worry whether your food would run out before you got money to buy more?: Never true Do you have trouble paying for medicines?: No Do you have trouble getting transportation to medical appointments?: No Do you have trouble paying your heating and electricity bill?: No Do you have trouble taking care of your child, family member or friend?: No Do you have trouble with day-to-day activities such as bathing, preparing meals, shopping, managing finances, etc.?: I choose not to answer this question Are you currently unemployed and looking for a job?: Yes Are you interested in more education?: No Please select the resources that you would like help with: Transportation Currently or been in a relationship where the following occur: No concerns reported THRIVE Score: 0 AUDIT C Alcohol Use Questionnaire (AUDIT-C) 2. How many drinks containing alcohol do you have on a typical day when you are drinking?: 1 or 2 Total Score: 0 LAMBERTO-7 AMB Questionnaire LAMBERTO-7 Date LAMBERTO - 7 assessed: 11/14/24 Source: Developed by Drs. Arnoldo Carreno, Dyan Edwards, Alvarez Jose and colleagues, with an educational shanna from [email or web address]. Review of Systems Const Denies chills, Denies fatigue, Denies fever(s), Denies headache(s) and Denies weakness ENT Denies dizziness and Denies headache(s) Card Denies dyspnea Resp Denies cough, Denies dyspnea, Denies wheezing and Denies other (shortness of breath) Musc Denies numbness and Denies tingling Neuro Denies dizziness, Denies headache(s), Denies numbness, Denies tingling and Denies weakness Psych Denies anxiety and Denies depression Endo Denies fatigue Aller/Immun Denies wheezing Physical exam (Primary Care) Vital Signs: Last Vital Signs Temp 97.8 F 04/19/25 09:30 Pulse 98 04/19/25 09:30 Resp 20 04/19/25 09:30 BP 124/66 04/19/25 09:30 Pulse Ox 96 04/19/25 09:30 Oxygen Delivery Method Room Air 04/19/25 09:30 BMI result Body Mass Index 41.1 Tobacco/Smoking Status: Tobacco use Status Tobacco use date assessed 04/19/25 04/19/25 09:37 Patient Tobacco Use Status Former Tobacco user 04/19/25 09:27 e-Cigarette/Vaping Use Never Used 04/19/25 09:27 Thrive Assessment: Date of Thrive Assessment Date Thrive assessed 11/14/24 04/19/25 09:27 Currently or been in a relationship where the following occur: No concerns reported Const General: well developed; No acute distress Nutritional Appearance: well nourished Orientation/consciousness: patient oriented x3 HENMT Head: Yes normocephalic and Yes atraumatic Eyes General: appearance normal, both eyes and all related structures Pupils: Equal, round and reactive pupils present EOM: EOMs intact bilaterally Resp Other: Coarse breath sounds with secretions Effort & Inspection: normal respiratory effort Cardio Rate: regular rate Rhythm: regular rhythm Heart sounds: S1 normal heart sound present, S2 normal heart sound present, no gallops, no murmurs and no rubs Neuro General: patient oriented x3 and gait normal Cranial nerves: Yes Equal, round and reactive pupils present Psych Affect: normal affect Results AMB Hemoglobin A1c AMB Hemoglobin A1c 7.1 % Last Edit by Michelle Stephenson MA on 04/19/25 10:05 Coding Level of Care Code Est Pt Level 4 (34610) Diagnoses Diabetes E11.9 KELSY on CPAP G47.33; Z99.89 Abnormal lung sounds R09.89 Screening for STD (sexually transmitted disease) Z11.3 Rash R21 Assessment & Plan Assessment & Plan (1) Diabetes: Code(s): E11.9 - Type 2 diabetes mellitus without complications Category: Medical Plan: A1c 7.1%. Fair control. Goal is less than 7.0% Increase metformin from 500 mg b.i.d. to 500 mg a.m. and 750 mg p.m. Still trying to get a GLP 1 medication; patient has diabetes, coronary artery disease, sleep apnea and is morbidly obese with a BMI greater than 40. (2) KELSY on CPAP: Comment: PATIENT DOES HAVE OBSTRUCTIVE SLEEP APNEA FOR MANY YEARS, HE HAS BEEN USING CPAP REGULARLY, PRESSURE 14 CM, FULLFACE MASK. HE BENEFITS FROM THE USE OF CPAP. COMPLIANCE IS GOOD. Code(s): G47.33 - Obstructive sleep apnea (adult) (pediatric); Z99.89 - Dependence on other enabling machines and devices Category: Medical Plan: Using CPAP Stable (3) Abnormal lung sounds: Code(s): R09.89 - Other specified symptoms and signs involving the circulatory and respiratory systems Category: Medical Plan: Ongoing shortness of breath and patient has coarse breath sounds with secretions sounds. Concern for bronchitis atypical pneumonia Starting him on cephalexin and will give him a short course of prednisone. (4) Screening for STD (sexually transmitted disease): Code(s): Z11.3 - Encounter for screening for infections with a predominantly sexual mode of transmission Category: Medical Plan: Patient notes recurrent rash on shaft of his penis No current rash He requests STD STI testing-ordered (5) Rash: Code(s): R21 - Rash and other nonspecific skin eruption Category: Medical Plan: As above Orders: Orders HSV I and II,IHC Today Z11.3 - Encounter for screening for infections with a predominantly sexual mode of transmission, Z20.2 - Contact with and (suspected) exposure to infections with a predominantly sexual mode of transmission HIV Ab/Ag Today Z11.3 - Encounter for screening for infections with a predominantly sexual mode of transmission, Z20.2 - Contact with and (suspected) exposure to infections with a predominantly sexual mode of transmission Syphilis Screen Today Z11.3 - Encounter for screening for infections with a predominantly sexual mode of transmission, Z20.2 - Contact with and (suspected) exposure to infections with a predominantly sexual mode of transmission AMB Hemoglobin A1c Today E11.9 - Type [address] NG by PCR Vag/Cerv Today Z11.3 - Encounter for screening for infections with a predominantly sexual mode of transmission, Z20.2 - Contact with and (suspected) exposure to infections with a predominantly sexual mode of transmission Hepatitis B,C Profile Today Z11.3 - Encounter for screening for infections with a predominantly sexual mode of transmission, Z20.2 - Contact with and (suspected) exposure to infections with a predominantly sexual mode of transmission Medications: New cephalexin 500 mg PO Q12H 20 tabs 0RF 10 days tirzepatide (weight loss) (Zepbound) for 4 weeks 2.5 mg (0.5 mL) subcut QWEEK 2 mL 3RF 28 days E11.9 - Type 2 diabetes mellitus without complications, E66.9 - Obesity, unspecified, G47.33 - Obstructive sleep apnea (adult) (pediatric), I25.10 - Atherosclerotic heart disease of [place] coronary artery without angina pectoris, Z99.89 - Dependence on other enabling machines and devices prednisone 40 mg (2 x 20 mg) PO DAILY 8 tabs 0RF 4 days Changed From metformin 500 mg PO BID 90 days 180 tabs 0RF To metformin tab1 (500 mg) a.m. and 1.5 tabs (750 mg) p.m. orally 2 times a day; 225 tabs 3RF 90 days Refilled clotrimazole 1% 1 appl topical BID 45 grams 1RF 2 weeks
[2025-04-19 09:30] VITALS: BP 124/66; PULSE 98; RESP 20; TEMP 36.6; O2SAT 96; BMI 41.1
--- OUTSIDE RECORDS SUMMARY | 2025-04-19 11:06 | XMS_ITS | Clinical Summary ---
Author Organization 175 [facility] Address [address] [place] [address] Phone Care Team Providers Care Booster Station Operator Name Role Phone Leland Trujillo MD Primary [...] AM EDT Office Visit Orthopedic Surgery - [address] [address] Joe Diaz, AIDA Controlled type 2 diabetes with neuropathy ([facility] V24, [facility] V28) (Primary Dx); Lumbosacral radiculopathy; Arthritis of both feet; Dermatophytosis, nail from Last 3 Months Immunizations Name Administration Dates Next Due Moderna SARS-CoV-2 COVID-19, mRNA, LNP-S, preservative free 12/01/2020,11/03/2020 Medical History Medical History Date Comments Diabetes mellitus ([facility] V24, [facility] V28) DX:Diabetes mellitus (HCC) Heart attack (CMS/[facility] V24, [facility] V28) DX:Heart attack (HCC) Mixed hyperlipidemia [...] AM EDT Office Visit Orthopedic Surgery - [place] [address] 175 [facility] [address] [place] [phone] Joe Diaz DPM [address] [address] Health Maintenance Due Date Last Done Comments [...] Result * Hepatitis C Screening (09/01/2020) Pathologist [facility] Hepatitis C Screening abstracted [facility] Provider HEALTH MAINTENANCE Final Result * Urine Albumin Creatinine Ratio (02/03/2020) Pathologist [facility] Urine Albumin Creatinine Ratio abstracted Historical Provider HEALTH MAINTENANCE Final Result from Last 3 Months or Most Recently Relevant to Health Maintenance Insurance [facility] [place] [address] Care Teams Booster Station Operator Relationship Specialty Start Date End Date Leland Trujillo MD [address] [place] [address] Dr Michelle MA PCP - General 05/09/22
== END 2025-04-19 10:03 | disposition home or self-care (01) ==
LOC: HO.HMCFM 09:23
PROVIDERS: PCP Family Medicine; Visit Provider Family Medicine
DX: E11.9 Type 2 diabetes mellitus without complications (principal); G47.33 Obstructive sleep apnea (adult) (pediatric); Z99.89 Dependence on other enabling machines and devices; R09.89 Other specified symptoms and signs involving the circulatory and respiratory systems; Z11.3 Encounter for screening for infections with a predominantly sexual mode of transmission; R21 Rash and other nonspecific skin eruption

== ENCOUNTER → 2025-04-19 09:22 | Outpatient (BNVA) | payer OTHER, SELFPAY | PROVIDERS: PCP Family Medicine; Visit Provider Family Medicine | DX: E11.9 Type 2 diabetes mellitus without complications (principal); R21 Rash and other nonspecific skin eruption; G47.33 Obstructive sleep apnea (adult) (pediatric); R09.89 Other specified symptoms and signs involving the circulatory and respiratory systems; Z99.89 Dependence on other enabling machines and devices | CPT/HCPCS: 83036; 99212 ==

== ENCOUNTER 2025-04-19 20:39 | Observation (INO) | payer OTHER, SELFPAY ==
--- NOTE | 2025-04-19 | ECG_ITS ---
Test Reason : CP Blood Pressure : */* mmHG Vent. Rate : 71 BPM Atrial Rate : 71 BPM P-R Int : 230 ms QRS Dur : 98 ms QT Int : 404 ms P-R-T Axes : 27 86 40 degrees QTcB Int : 439 ms Sinus rhythm with 1st degree A-V block Otherwise normal ECG When compared with ECG of 19-Apr-2025 21:06, SC interval has increased Referred By: Germaine Ryder Electronically Signed By: Ho Saucedo
--- NOTE | ~2025-04-19 | XR_ITS ---
EXAMINATION: XR CHEST 1 VIEW HISTORY: chest pain COMPARISON: There are no prior studies available for comparison. FINDINGS: A single AP portable view of the chest performed at 9:16 PM is submitted. The lungs are expanded and clear. There is no pleural effusion, pneumothorax, or pulmonary vascular congestion. The heart is normal in size. The bones are intact. XR/XR chest 1V IMPRESSION: Clear lungs. Electronically signed by: Arnoldo Acevedo MD 04/20/2025 09:51 AM EDT
--- NOTE | ~2025-04-19 | CT_ITS ---
CLINICAL HISTORY: pe rule out CT angiography chest with contrast. 3D Postprocessing. Comparison: CR - XR CHEST 1V - 01/04/25 19:[address]/SR - CT ABDOMEN PELVIS WO IV CON - 08/28/24 17:27 EST Findings: No pulmonary embolus given limitations of motion artifact in the lower lobes. The heart size is normal. RV/LV ratio is normal. The thoracic aorta is normal caliber. The visualized thyroid and mediastinum are unremarkable. Mild dependent atelectasis. Mild mucous plugging in the lower lobes. No consolidation, pleural effusion or pneumothorax. No acute findings visualized upper abdomen. Degenerative changes of the spine. No acute fracture. IMPRESSION: 1. No pulmonary embolus identified, with limited evaluation of lower lobes due to motion artifact. 2. Mild dependent atelectasis and mucous plugging in lower lobes. This document has been electronically signed by: Felicia Santo MD on 04/20/2025 01:55:00
[2025-04-19 20:42] VITALS: BP 126/86; PULSE 92; O2SAT 97; BMI 41.2
--- OUTSIDE RECORDS SUMMARY | 2025-04-19 21:04 | XMS_ITS | Data Portability ---
Author Organization [place] [facility], Allergy Address [address] [place] [phone] Assessment No assessment recorded. Plan of Treatment Reminders Order Date Submit Date Provider Last Modified By Organization Details Last Modified Time Details Appointments None recorded. Lab None recorded. 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 2023 024 [email or web address] 2 [facility], [address] [facility], [facility], [place], [address], 4 12:21:10 Procedures None recorded. 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 100, [place], [address], [facility] - [facility] 09:13:57 Problem Notes None recorded. Procedures Surgical History Date Name Laterality Status Provider Name and Address Organization Details Recorded Time 01/20/2024 FFL_RE completed BERNARDA BELL MD 100 [facility] [address], [place], [address], [facility] - [facility] 01/20/2024 09:14:05 Imaging Results None recorded. Procedure [...] Updated DateTime 01/20/2024 182.88 cm 35.3 kg/m2 702299.02 g Kat Major [place] [facility] 01/20/2024 09:04:31 Social History None recorded. Functional Status None recorded. Mental Status None recorded. Family History Nothing Reported. Medical History No medical history recorded. Past Encounters Encounter ID Performer Location Encounter Start Date Encounter Closed Date Diagnosis/Indication Diagnosis SNOMED-CT Code Diagnosis ICD10 Code Diagnosis IMO Codes Diagnosis Note [id number] BERNARDA BELL MD [facility] [address] [phone] 01/20/2024 08:46:56 01/20/2024 09:20:43 Dysphagia 66072359 R13.10 Laryngosco py was normal. Mild. Recommend small bites and washing down with fluid and to call if it worsens. 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 I discussed I don't manage these tumors and I will refer him to a head and neck surgeon. If surveillan ce is recommende d I am glad to obtain serial imaging for him. He was agreeable to the referral. Health Concerns Section Related Observation LastModified by Organization Gayla guerrero LastModified Time None Recorded Concern Status LastModified by Organization Details LastModified Time None Recorded Advance Directives Directive None Recorded Payers Insurance Date Sequence Insurance Name Policy Number Policy Rutledge Covered Member ID Rutledge Member ID Guarantor Name 01/20/2024 1 [facility] - HEALTH NET PLAN (MEDICAID HMO) Mina Lopes [id number] Mina Lopes Notes Date Note Type Note [...] smoking 3 years ago. BERNARDA BELL MD [address] [place] [address], [place], [address], [facility] - [facility] 01/20/2024 09:23:32
--- OUTSIDE RECORDS SUMMARY | 2025-04-19 21:04 | XMS_ITS | Clinical Summary ---
Author Organization 175 [facility] Address 175 [place] [address] Phone Care Team Providers Care Multimedia Coordinator Name Role Phone Leland Trujillo MD Primary [...] AM EDT Office Visit Orthopedic Surgery - [address] [address] Joe Diaz, AIDA Controlled type 2 diabetes with neuropathy ([facility] V24, [facility] V28) (Primary Dx); Lumbosacral radiculopathy; Arthritis of both feet; Dermatophytosis, nail from Last 3 Months Immunizations Name Administration Dates Next Due Moderna SARS-CoV-2 COVID-19, mRNA, LNP-S, preservative free 12/01/2020,11/03/2020 Medical History Medical History Date Comments Diabetes mellitus ([facility] V24, [facility] V28) DX:Diabetes mellitus (HCC) Heart attack (CMS/[facility] V24, [facility] V28) DX:Heart attack (HCC) Mixed hyperlipidemia [...] AM EDT Office Visit Orthopedic Surgery - [place] 250 175 [facility] 250 [place] [phone] Joe Diaz DPM [address] [address] Health Maintenance Due Date Last Done Comments [...] Result * Hepatitis C Screening (09/01/2020) Pathologist [facility] Hepatitis C Screening abstracted [facility] Provider HEALTH MAINTENANCE Final Result * Urine Albumin Creatinine Ratio (02/03/2020) Pathologist [facility] Urine Albumin Creatinine Ratio abstracted Historical Provider HEALTH MAINTENANCE Final Result from Last 3 Months or Most Recently Relevant to Health Maintenance Insurance [facility] Care Teams Multimedia Coordinator Relationship Specialty Start Date End Date Leland Trujillo MD [address] [place] [address] Dr Michelle MA PCP - General 05/09/22
[2025-04-19 21:23] LABS: MANUAL DIFF FLAG NO
[2025-04-19 21:24] LABS: Hematocrit 39.4 % (42.0-52.0); Hemoglobin 13.8 g/dl (14.0-18.0); Imm Gran Abs Auto 0.03 X10*3/uL (0.00-0.03); Imm Gran Pct Auto 0.4 % (0.0-0.4); Lymphocytes Absolute Auto 3.2 X10*3/uL (1.2-4.9); Mean Corpuscular HGB Conc 35.0 g/dl (31.0-36.0); Mean Corpuscular Hemoglobin 29.6 pg (27.0-33.0); Mean Corpuscular Volume 84.4 fL (80.0-98.0); NRBC Abs Auto 0.000 X10*3/uL (0.0-0.012); NRBC Pct Auto 0.0 /100WBC (0.0-0.2); Platelet Count 183 X10*3/uL (160-400); Red Blood Count 4.67 X10*6/uL (4.60-5.80); White Blood Count 6.9 X10*3/uL (4.8-10.8)
[2025-04-19 21:46] LABS: Alanine Aminotransferase 44 U/L (0-40); Albumin Level 4.5 g/dL (3.5-5.0); Alkaline Phosphatase 74 U/L (39-117); Anion Gap 10 (12-20); Aspartate Amino Transferase 42 U/L (5-37); Blood Urea Nitrogen 17 mg/dL (9-16); Calcium 9.4 mg/dL (8.4-10.2); Carbon Dioxide 21 mmol/L (22-29); Chloride 112 mmol/L (96-108); Creatinine Clr Calc Pharmacy 98.0; Estimated Glomerular Filt Rate 58; Magnesium 2.3 mg/dL (1.6-2.6); Potassium 3.7 mmol/L (3.3-5.1); Sodium 139 mmol/L (135-145); Total Protein 7.1 g/dL (6.5-8.0)
[2025-04-19 21:55] LABS: Troponin-I High Sensitivity < 2.7 ng/L (<3.5-35.0)
[2025-04-19 22:07] VITALS: BP 110/67; PULSE 78; RESP 14; O2SAT 97
--- NOTE | 2025-04-19 22:38 | ED.CHESTPAIN ---
HPI - Chest Pain General Chief Complaint: Chest Pain Stated Complaint: sob, chest pain, hx mi / stent Time Seen by Provider: 04/19/25 22:37 Source: patient Mode of arrival: ambulatory Limitations: no limitations History of Present Illness HPI narrative: This is a 50-year-old male history of CAD with cardiac stent presented hospital today for intermittent chest pain since 16:30. Patient stated that it is located in his left chest and radiates to his shoulder. He received 2 dose of nitro and 4 baby aspirin. He states that this is similar to his feeling when he had received his cardiac stent. He does have feeling of chest pain intermittently throughout the years. He has follow up with Dr. Ash for these chest pain. Last stress test was approximately 2 years ago. Denies any shortness of breath. 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 Related Data Home Medications ?Medication ?Instructions ?Recorded ?Confirmed amitriptyline 25 mg tablet 50 mg PO BEDTIME 01/01/23 04/19/25 escitalopram oxalate 5 mg tablet 5 mg PO DAILY 07/08/23 04/19/25 hydroxyzine HCl 25 mg tablet 25 mg PO TID 10/07/23 04/19/25 ipratropium 20 mcg-albuterol 100 1 puff inhalation Q6H PRN 10/27/23 04/19/25 mcg/actuation mist for inhalation Bronchospasm (Combivent Respimat) Previous Rx's ?Medication ?Instructions ?Recorded triamcinolone acetonide 0.1 % 1 appl topical DAILY 30 days #80 04/21/22 topical cream grams bupropion HCl 150 mg 24 hr tablet, 150 mg PO QAM 90 days #90 tabs 05/06/22 extended release aripiprazole 5 mg tablet 5 mg PO DAILY 90 days #90 tabs 05/11/22 bupropion HCl 300 mg 24 hr tablet, 300 mg PO DAILY 90 days #90 tabs 05/11/22 extended release isosorbide mononitrate 30 mg 30 mg PO DAILY 90 days #90 tabs 04/25/24 tablet,extended release 24 hr pyridoxine (vitamin B6) 50 mg 50 mg PO DAILY 90 days #90 tabs 12/02/24 tablet tamsulosin 0.4 mg capsule 0.4 mg PO BEDTIME 90 days #90 caps 12/02/24 semaglutide 0.25 mg or 0.5 mg (2 0.25 mg (0.368 mL) subcut QWEEK #3 01/10/25 mg/3 mL) subcutaneous pen injector mL (Ozempic) cyanocobalamin (vitamin B-12) 1,000 mcg PO DAILY 90 days #90 tabs 01/16/25 1,000 mcg tablet loratadine 10 mg tablet 10 mg PO DAILY 90 days #90 tabs 01/16/25 rosuvastatin 40 mg tablet 40 mg PO DAILY 90 days #90 tabs 01/16/25 umeclidinium 62.5 mcg-vilanterol 1 inh inhalation Q24H 30 days #60 01/16/25 25 mcg/actuation powdr for ea inhalation (Anoro Ellipta) cholecalciferol (vitamin D3) 25 25 mcg PO DAILY 90 days #90 caps 01/26/25 mcg (1,000 unit) capsule aspirin 81 mg tablet,delayed 81 mg PO DAILY 90 days #90 tabs 02/12/25 release (Adult Low Dose Aspirin) carvedilol 25 mg tablet 25 mg PO Q12H 90 days #180 tabs 02/17/25 duloxetine 30 mg capsule,delayed 30 mg PO DAILY 90 days #90 caps 02/17/25 release pantoprazole 40 mg tablet,delayed 40 mg PO BID #90 tabs 02/17/25 release amlodipine 10 mg tablet 10 mg PO DAILY 90 days #90 tabs 03/08/25 indomethacin 25 mg capsule 25 mg PO BID 30 days #60 caps 03/27/25 meclizine 25 mg tablet 25 mg PO BID PRN dizziness 30 days 04/05/25 #60 tabs topiramate 100 mg tablet 200 mg (2 x 100 mg) PO BID 90 days 04/05/25 #360 tabs gabapentin 300 mg capsule 300 mg PO TID 30 days #90 caps 04/06/25 pramipexole 0.5 mg tablet 0.5 mg PO BEDTIME 30 days #30 tabs 04/12/25 cephalexin 500 mg tablet 500 mg PO Q12H 10 days #20 tabs 04/19/25 clotrimazole 1 % topical cream 1 appl topical BID 2 weeks #45 04/19/25 grams metformin 500 mg tablet See Rx Instructions PO BID 90 days 04/19/25 #225 tabs prednisone 20 mg tablet 40 mg (2 x 20 mg) PO DAILY 4 days 04/19/25 #8 tabs tirzepatide (weight loss) 2.5 2.5 mg (0.5 mL) subcut QWEEK 28 04/19/25 mg/0.5 mL subcutaneous pen days #2 mL injector (Zepbound) Allergies Allergy/AdvReac Type Severity Reaction Status Date / Time erythromycin base Allergy Mild Confusion Verified 04/19/25 20:44 clonidine AdvReac Severe Vomiting Verified 04/19/25 20:44 Review of Systems Review of Systems: Pertinent review of systems as mentioned in HPI. All other system otherwise negative. [facility] Past Medical History [facility] Narrative: Medical history as mentioned in HPI Medical History (Updated 04/20/25 @ 03:48 by Germaine Ryder DO) Abnormal lung sounds Hiatal hernia Powers esophagus determined by biopsy Obesity (BMI 30-39.9) Difficulty swallowing Screening for prostate cancer Screening for colon cancer Adult general medical exam Laboratory exam ordered as part of routine general medical examination Imbalance Left-sided chest wall pain Dizziness Fatigue Unsteady gait Yeast infection of the skin Cough Abnormal CT lung screening Headache Puncture wound of scalp Left knee pain Sacroiliitis Osteoarthritis of knee Infection of skin Exposure to potential infection Urinary hesitancy Decreased visual acuity Low vitamin B12 level Morbid obesity Elevated fasting glucose Chest discomfort COPD (chronic obstructive pulmonary disease) KELSY on CPAP Torn rotator cuff Diabetes High cholesterol Hypertension Surgical History History of esophagogastroduodenoscopy (EGD) Hx of colonoscopy Stented coronary artery History of carpal tunnel surgery Family History Family History Other Mental health disorder Substance abuse Social History Social History Household Members Other:: roommate Housing: House Are you a primary care process manager to a significant other at home: No Do you presently have visiting nurse or other home services: No Alcohol intake: never Patient Tobacco Use Status: Former Tobacco user e-Cigarette/Vaping Use: Never Used Second Hand Smoke Exposure: No Advance Directives: No Advance Directives Information Provided: Yes service: No Current occupational status: unemployed Current occupational exposures/hazards: No Cognitive needs: Yes (CANE) Hearing needs: No Vision needs: Yes Physical Exam Exam: Exam: General: Pleasant, no distress, interacting appropriately Head: Normacephalic, atraumatic ENT: oral mucosa moist, neck supple, no tracheal deviation Cardiovascular: regular rate, regular rhythm, no murmurs, rubbing, gallops Respiratory: CTAB, no wheeze, rales, rhonchi Gastrointestinal: Soft, non distended, non tender, non guarding Extremities: No limb pain or swelling, no calf tenderness Neurological: Awake and alert, no facial droop noted Skin: Warm and dry Psychiatric: Appropriate mood and thoughts Vital Signs: Vital Signs: Last Vital Signs Pulse 70 04/20/25 01:49 Resp 12 04/20/25 01:49 BP 133/87 04/20/25 01:49 Pulse Ox 96 04/20/25 01:49 O2 Del Method Room Air 04/20/25 01:49 BMI result Body Mass Index 41.2 Medications Administered Discontinued Medications Generic Name Dose Route Start Last Admin Trade Name Freq PRN Reason Stop Dose Admin Iohexol 65 ml 04/20/25 00:49 04/20/25 01:00 Iohexol 350 Mg/Ml 100 Ml Infus..Btl IV 04/20/25 00:50 65 ml ONCE ONE Administration Medical Decision Making Medical Decision Making [facility] Narrative: 50-year-old male history of diabetes, hypertension hyperlipidemia CAD with cardiac stent in the past presented hospital today for chest pain. After nitroglycerin and aspirin patient stated his chest pain has resolved. However he stated that this chest pain is worse than his usual intermittent chest pain he has been following with Dr. Ash for. Last stress test was approximately 2 years ago. CBC is unremarkable, patient chemistries unremarkable. Troponin is negative x2. I did obtain a CTA of the chest did not show any signs of pulmonary embolism. Patient has a heart score of 4. Due to patient's risk factor we will plan to admit patient for chest pain observation. Differential Diagnosis Differential Diagnoses: The differential diagnosis associated with the presentation includes ACS, STEMI, cardiac arrhythmia, PE Lab Data [facility] Lab Attestation statement: I reviewed the patient's lab results. 04/19/25 21:17 04/19/25 21:17 Labs: Lab Results 04/19/25 04/19/25 Range/Units 21:17 22:50 WBC 6.9 (4.8-10.8) X10*3/uL RBC 4.67 (4.60-5.80) X10*6/uL Hgb 13.8 L (14.0-18.0) g/dl Hct 39.4 L (42.0-52.0) % MCV 84.4 (80.0-98.0) fL MCH 29.6 (27.0-33.0) pg MCHC 35.0 (31.0-36.0) g/dl RDW 13.5 (11.0-16.0) % Plt Count 183 (160-400) X10*3/uL MPV 9.6 (9.4-12.4) fL Immature Gran % (Auto) 0.4 (0.0-0.4) % Neut % (Auto) 42.6 L (45-73) % Lymph % (Auto) 45.6 H (20-40) % [place] % (Auto) 8.8 (2-11) % Eos % (Auto) 1.7 (0-4) % Baso % (Auto) 0.9 (0-2) % Lymph # (Auto) 3.2 (1.2-4.9) X10*3/uL [place] # (Auto) 0.6 (0.1-1.2) X10*3/uL Eos # (Auto) 0.1 (0.0-0.4) X10*3/uL Baso # (Auto) 0.1 (0.0-0.2) X10*3/uL Abs Immat Gran (auto) 0.03 (0.00-0.03) X10*3/uL Absolute Neuts (auto) 3.0 (2.0-8.3) x10*3/uL Absolute Nucleated RBC 0.000 (0.0-0.012) X10*3/uL Nucleated RBC % (auto) 0.0 (0.0-0.2) /100WBC Sodium 139 (135-145) mmol/L Potassium 3.7 (3.3-5.1) mmol/L Chloride 112 H (96-108) mmol/L Carbon Dioxide 21 L (22-29) mmol/L Anion Gap 10 L (12-20) BUN 17 H (9-16) mg/dL Creatinine 1.31 (0.5-1.4) mg/dL Estim Creat Clear Calc 98.0 Estimated GFR 58 Random Glucose 104 (60-115) mg/dL Calcium 9.4 (8.4-10.2) mg/dL Magnesium 2.3 (1.6-2.6) mg/dL Total Bilirubin 0.3 (0.0-1.0) mg/dL AST 42 H (5-37) U/L ALT 44 H (0-40) U/L Alkaline Phosphatase 74 (39-117) U/L Troponin I High Sens < 2.7 < 2.7 (<3.5-35.0) ng/L Total Protein 7.1 (6.5-8.0) g/dL Albumin 4.5 (3.5-5.0) g/dL Independent Interpretation I performed an independent interpretation of an: CT Scan Radiology Impression Discussion of test interpretation with radiology: I have reviewed the radiologist's reading. Scores Heart Score History: -1- moderately suspicious ECG: -0- normal Age: -1- >45 - <65 Risk factory: -2- 3 or more risk factors or treated atherosclerosis Troponin: -0- < or = normal limit Score: 4 Risk: 16.6% Discharge Plan Discharge Clinical Impression: Chest pain Patient Disposition: Admitted As Inpatient Print Language: Slovenian
[2025-04-19 23:19] LABS: Troponin-I High Sensitivity < 2.7 ng/L (<3.5-35.0)
--- NOTE | 2025-04-19 23:35 | ECG_ITS ---
Test Reason : CP Blood Pressure : */* mmHG Vent. Rate : 88 BPM Atrial Rate : 88 BPM P-R Int : 186 ms QRS Dur : 98 ms QT Int : 366 ms P-R-T Axes : -17 93 20 degrees QTcB Int : 442 ms Normal sinus rhythm Rightward axis Borderline ECG When compared with ECG of 24-Aug-2024 20:12, No significant change was found Referred By: Germaine Ryder Electronically Signed By: Ho Saucedo
[2025-04-20] VITALS (7 sets, daily range): BP systolic 111–142; BP diastolic 68–92; PULSE 69–79; RESP 12–20; TEMP 36.4–36.9; O2SAT 96–97; BMI 40.3
[2025-04-20] MEDS: iohexoL 350 MG/ML 100 ML INFUS..BTL 65 ML IV (01:00)
--- NOTE | 2025-04-20 04:47 | PM.IMHP ---
History of Present Illness Date of Service: 04/20/25 Attending physician on admission: Sonu Cates Chief Complaint: Chest pain Patient is a 50-year-old male for the past medical history significant for CAD, history [place]/stent, COPD, KELSY on CPAP, morbid obesity, HTN, and HLD, who presented to the ED due to intermittent chest pain/pressure starting around 4:30 PM yesterday. He received nitro x2 and 4 baby aspirin by EMS. He reports the pain was located on the left chest radiating to the left shoulder. He has had similar symptoms in the past, followed by Dr. Ash, last stress test was 2 years ago, had a cardiac stent placed at that time. He denies any shortness of breath, nausea, vomiting, palpitations, abdominal pain, urinary symptoms, cough, sore throat or URI symptoms. Workup in the ED with negative EKG, troponins, CTA chest for PE, sx resolved. heart score 5. admit for observation. Review of Systems Constitutional: Constitutional: Denies body ache(s), Denies chills, Denies fatigue, Denies fever(s) and Denies headache(s) Eyes: Eyes: Denies change in vision ENT: Denies headache(s), Denies nasal congestion, Denies sinus pressure and Denies sore throat Cardiovascular: Cardiovascular: Reports chest pain, Denies rapid heart rate, Denies leg edema, Denies lightheadedness and Denies dyspnea Respiratory: Respiratory: Denies chest congestion, Denies cough, Denies dyspnea and Denies wheezing Gastrointestinal: Gastrointestinal: Denies abdominal pain, Denies nausea and Denies vomiting Genitourinary: Genitourinary: Denies dysuria and Denies urinary urgency Musculoskeletal: Musculoskeletal: Denies back pain and Denies myalgias Integumentary/Breasts: Skin/Breast: Denies rash Neurologic: Denies confusion and Denies headache(s) Psychiatric: Psychiatric: Denies confusion Endocrine: Endocrine: Denies fatigue Hematologic/Lymphatic: Hematologic/Lymphatic: Denies easy bleeding and Denies easy bruising Allergic/Immunologic: Allergic/Immunologic: Denies wheezing [facility] Medical History Abnormal lung sounds Hiatal hernia Powers esophagus determined by biopsy Obesity (BMI 30-39.9) Difficulty swallowing Screening for prostate cancer Screening for colon cancer Adult general medical exam Laboratory exam ordered as part of routine general medical examination Imbalance Left-sided chest wall pain Dizziness Fatigue Unsteady gait Yeast infection of the skin Cough Abnormal CT lung screening Headache Puncture wound of scalp Left knee pain Sacroiliitis Osteoarthritis of knee Infection of skin Exposure to potential infection Urinary hesitancy Decreased visual acuity Low vitamin B12 level Morbid obesity Elevated fasting glucose Chest discomfort COPD (chronic obstructive pulmonary disease) KELSY on CPAP Torn rotator cuff Diabetes High cholesterol Hypertension Family History Other Mental health disorder Substance abuse Surgical History History of esophagogastroduodenoscopy (EGD) Hx of colonoscopy Stented coronary artery History of carpal tunnel surgery Social History Household Members Other:: roommate Housing: House Are you a primary respite care provider to a significant other at home: No Do you presently have visiting nurse or other home services: No Alcohol intake: never Patient Tobacco Use Status: Former Tobacco user e-Cigarette/Vaping Use: Never Used Second Hand Smoke Exposure: No Advance Directives: No Advance Directives Information Provided: Yes service: No Current occupational status: unemployed Current occupational exposures/hazards: No Cognitive needs: Yes (CANE) Hearing needs: No Vision needs: Yes Meds Allergies Allergy/AdvReac Type Severity Reaction Status Date / Time erythromycin base Allergy Mild Confusion Verified 04/19/25 20:44 clonidine AdvReac Severe Vomiting Verified 04/19/25 20:44 Home Medications ?Medication ?Instructions ?Recorded ?Confirmed ?Last Taken ?Type amitriptyline 25 mg tablet 50 mg PO BEDTIME 01/01/23 04/19/25 Unknown History escitalopram oxalate 5 mg tablet 5 mg PO DAILY 07/08/23 04/19/25 Unknown History hydroxyzine HCl 25 mg tablet 25 mg PO TID 10/07/23 04/19/25 Unknown History ipratropium 20 mcg-albuterol 100 1 puff inhalation Q6H PRN 10/27/23 04/19/25 Unknown History mcg/actuation mist for inhalation Bronchospasm (Combivent Respimat) Physical Exam Vital Signs and Narrative: Vital Signs: Last Vital Signs Pulse 70 04/20/25 01:49 Resp 12 04/20/25 01:49 BP 133/87 04/20/25 01:49 Pulse Ox 96 04/20/25 01:49 O2 Del Method Room Air 04/20/25 01:49 BMI result Body Mass Index 41.2 General: AOx3, no acute distress Resp: CTA bilaterally CVS: S1, S2, RRR GI: +BS, NT, no distention Skin: Warm, dry Neuro: Cranial nerves II-XII grossly intact bilaterally. Motor grossly intact bilaterally Extremities: No pitting edema Psych: Appropriate affect Const: General: No confusion Orientation/consciousness: No confusion Neuro: General: No confusion Results Labs 04/19/25 21:17 04/19/25 21:17 Labs: Laboratory Results - last 24 hr 04/19/25 04/19/25 21:17 22:50 MCV 84.4 MCH 29.6 MCHC 35.0 RDW 13.5 Plt Count 183 MPV 9.6 Immature Gran % (Auto) 0.4 Neut % (Auto) 42.6 L Lymph % (Auto) 45.6 H [place] % (Auto) 8.8 Eos % (Auto) 1.7 Baso % (Auto) 0.9 Lymph # (Auto) 3.2 [place] # (Auto) 0.6 Eos # (Auto) 0.1 Baso # (Auto) 0.1 Abs Immat Gran (auto) 0.03 Absolute Neuts (auto) 3.0 Absolute Nucleated RBC 0.000 Nucleated RBC % (auto) 0.0 Anion Gap 10 L Estim Creat Clear Calc 98.0 Estimated GFR 58 Random Glucose 104 Calcium 9.4 Magnesium 2.3 Total Bilirubin 0.3 AST 42 H ALT 44 H Alkaline Phosphatase 74 Troponin I High Sens < 2.7 < 2.7 Total Protein 7.1 Albumin 4.5 Assessment and Plan (1) Acute chest pain: Status: Acute Plan Patient is a 50-year-old male for the past medical history significant for CAD, history [place]/stent, COPD, KELSY on CPAP, morbid obesity, HTN, DM, and HLD, who presented to the ED due to intermittent chest pain/pressure starting around 4:30 PM yesterday. Admission for observation for acute chest pain, symptoms resolved. Acute chest pain, resolved after receiving nitroglycerin and aspirin by EMS - telemetry - echo - lipid panel - cardiology consult elevated LFTs, near baseline, likely fatty liver - f/u outpt T2DM - sliding scale insulin Moderate COPD, no acute exacerbation - continue home meds KELSY - CPAP at bedtime HTN - continue home meds HLD - continue home meds Morbid obesity - weight loss encouraged Med rec pending Full code VTE prophylaxis: Lovenox Patient with acute chest pain, requiring admission for observation for further evaluation, monitoring and cardiology consultation. Quality Stroke Does the patient have a stroke diagnosis?: No VTE Prior VTE?: No VTE Risk Level:: Medical - moderate - high VTE Device Contraindication: Treatment Not Indicated VTE Drug Contraindication: N/A - Med Ordered
--- OUTSIDE RECORDS SUMMARY | 2025-04-20 05:32 | XMS_ITS | Clinical Summary ---
Author Organization [address] [facility] Address [address] [place] [address] Phone Care Team Providers Care Director Process Name Role Phone Leland Trujillo MD Primary [...] AM EDT Office Visit Orthopedic Surgery - [address] [id number] Joe Diaz, AIDA Controlled type 2 diabetes with neuropathy ([facility] V24, [facility] V28) (Primary Dx); Lumbosacral radiculopathy; Arthritis of both feet; Dermatophytosis, nail from Last 3 Months Immunizations Name Administration Dates Next Due Moderna SARS-CoV-2 COVID-19, mRNA, LNP-S, preservative free 12/01/2020,11/03/2020 Medical History Medical History Date Comments Diabetes mellitus ([facility] V24, [facility] V28) DX:Diabetes mellitus (HCC) Heart attack (CMS/[facility] V24, [facility] V28) DX:Heart attack (HCC) Mixed [...] AM EDT Office Visit Orthopedic Surgery - [place] [address] [facility] [address] [place] [id number] Joe Diaz DPM [address] [address] Health Maintenance Due Date Last Done Comments [...] Result * Hepatitis C Screening (09/01/2020) Pathologist [facility] Hepatitis C Screening abstracted [facility] Provider HEALTH MAINTENANCE Final Result * Urine Albumin Creatinine Ratio (02/03/2020) Pathologist [facility] Urine Albumin Creatinine Ratio abstracted Historical Provider HEALTH MAINTENANCE Final Result from Last 3 Months or Most Recently Relevant to Health Maintenance Insurance [facility] [employer] Care Teams Director Process Relationship Specialty Start Date End Date Leland Trujillo MD [address] [place] [address] Dr Michelle MA PCP - General 05/09/22
--- NOTE | 2025-04-20 06:11 | MHC.EDTECH ---
900ml urine emptied from urinal.
--- NOTE | 2025-04-20 07:00 | CA_ITS ---
Transthoracic Echocardiogram Patient (Last, First, Middle): Mina Lopes, Gender: Male Date of : 1975 Age: 50 Procedure Date: 04/20/2025 Procedure Type: Transthoracic Echocardiogram Location: ER Height: 182. cm Weight: 137.44 kg BSA: 2.53 m2 Heart Rate: 78 bpm BP: 103 / 66 mmHg Spinning Doffer: MAGGY Referring MD: Cheryle Downing PA-C Symptoms: chest pain Study Quality: Adequate w contrast ECG Rhythm: Sinus Conclusions: - Normal left ventricular size and systolic function. The visually estimated ejection fraction is between 55-60%. - Mildly increased right ventricular cavity size. There is normal right ventricular systolic function. Findings Procedure Information Contrast agent, definity, is being given per protocol without apparent complications. The quality of the study was technically difficult. The study quality is limited by patients body habitus. Left Ventricle Normal left ventricular size and systolic function. The visually estimated ejection fraction is between 55-60%. There is no evidence of regional wall motion abnormalities. Diastolic function is normal for age. There is mild septal asymmetric hypertrophy. Right Ventricle Mildly increased right ventricular cavity size. There is normal right ventricular systolic function. Atria The left atrium is normal in size. The right atrium is normal in size. Aortic Valve Normal aortic valve structure and function. There are fibrocalcifications on the aortic valve wall. There is no aortic valve stenosis. There is no aortic valve regurgitation. Mitral Valve The mitral valve appears normal. There is no mitral valve regurgitation. There is no mitral valve stenosis. Pulmonic Valve The pulmonic valve is likely normal. Tricuspid Valve Normal tricuspid valve structure. There is no tricuspid valve regurgitation. Normal right atrial pressure. There is no evidence of pulmonary hypertension. Great Vessels All visible segments of the aorta are normal in size. The visualized portions of the pulmonary artery and branches are normal. Venous The inferior vena cava is normal in size and collapses greater than 50% with inspiration. Pericardium/Pleural There is no evidence of pericardial effusion. Prior Study Comparison Changes noted compared to prior study dated: 11/21/2022. RV mildly dilated. Measurements 2D Linear Measurements IVSd: 1.23 0.6-0.9/0.6-1.0 cm LVIDd: 3.36 3.9-5.3/4.2-5.9 cm LVIDd Index: 1.33 2.4-3.2/2.2-3.1 cm/m2 LVIDs: 2.30 2.0-3.6 cm LVPWd: 0.96 0.7-1.1 cm LA Diam: 3.30 2.7-3.8/3.0-4.0 cm LAIDs Index: 1.30 1.5-2.3 cm/m2 LV Mass: 138.15 67-162/88-224 g LV Mass Index: 54.60 43-95/49-115 g/m2 LVOT Diam: 2.00 3.0+(-)1.3 cm 2D Systolic Function EF 4C: 70.10 >55% EF 2C: 59.30 >55% Mitral Valve MV Pk E: 0.60 MV PK A: 0.84 MV Decel Time: 295.00 E/A: 0.70 E'Lateral: 8.38 E'Medial: 5.77 E/E' Med: 10.40 E/E' Lat: 7.20 PHT: 86.00 MVA PHT: 2.56 Decel [place]: 2.03 Aortic Valve AoV Pk Mesfin: 1.47 AoV Mn Mesfin: 0.99 AoV VTI: 0.28 AoV Pk Grad: 9.00 Aov Mn Grad: 5.00 RAMYA Cont.VTI: 2.96 LVOT LVOT Pk Mesfin: 1.40 LVOT Mn Mesfin: 0.98 LVOT VTI: 0.27 LVOT Pk Grad: 8.00 LVOT Mn Grad: 4.00 LVOT Diam: 2.00 LVOT Area: 3.14 Diastolic Function MV Pk E: 0.60 MV Pk A: 0.84 E/A: 0.70 E'Medial: 5.77 E/E' Med: 10.40 E' Laterial: 8.38 E/E' Lat: 7.20 Right Ventricle TAPSE (mm): 23.90 TVS' Mesfin: 10.10 Tricuspid Valve TR Pk Mesfin: 2.21 TR Pk Grad: 20.00 RA Press: 3.00 RVSP: 23.00 Great Vessels Aorta Sinus of Valsalva: 3.50 2.0-3.5 cm Ao Asc: 3.40 2.1-3.4 cm Ao Arch: 2.80 Pulmonary Valve PV Pk Mesfin: 0.98 Peak PV Grad: 4.00 Updated in Other Vendor System with Status of Final Ho Saucedo MD electronically signed on 04/20/2025 8:15:02 PM with status of Final
[2025-04-20 07:04] LABS: Glucose, Whole Blood 121 mg/dL (60-115)
[2025-04-20 08:26] LABS: Hematocrit 40.3 % (42.0-52.0); Hemoglobin 13.8 g/dl (14.0-18.0); Mean Corpuscular HGB Conc 34.2 g/dl (31.0-36.0); Mean Corpuscular Hemoglobin 29.3 pg (27.0-33.0); Mean Corpuscular Volume 85.6 fL (80.0-98.0); NRBC Abs Auto 0.000 X10*3/uL (0.0-0.012); NRBC Pct Auto 0.0 /100WBC (0.0-0.2); Platelet Count 176 X10*3/uL (160-400); Red Blood Count 4.71 X10*6/uL (4.60-5.80); White Blood Count 5.9 X10*3/uL (4.8-10.8)
[2025-04-20 08:45] LABS: Anion Gap 7 (12-20); Blood Urea Nitrogen 15 mg/dL (9-16); Calcium 9.2 mg/dL (8.4-10.2); Carbon Dioxide 25 mmol/L (22-29); Chloride 113 mmol/L (96-108); Creatinine Clr Calc Pharmacy 102.7; Estimated Glomerular Filt Rate > 60; Potassium 4.1 mmol/L (3.3-5.1); Sodium 141 mmol/L (135-145)
[2025-04-20 09:01] LABS: Thyroid Stimulating Hormone 1.36 uIU/mL (0.32-4.0)
--- NOTE | 2025-04-20 11:44 | PHA.MEDREC ---
Pharmacy Consult ? Medication Reconciliation Pharmacy has completed the medication reconciliation. Spoke to patient to confirm med list. Patient verified that he is taking aripiprazole 10 mg daily, bupropion XL 150 mg + 300 mg daily, hydroxyzine 25 mg @0900 and 1730 and 75 mg at bedtime, his metformin was increased to 500 mg in the morning and 750 mg at night. He takes isosorbide and loratadine at night. He has not started ozempic nor mounjaro due to insurance problem. Prescriptions for cephalexin, clotrimazole and prednisone were sent to the pharmacy yesterday but he hasn't started taking them yet. Last dose of medications was thursday04/18/25.
--- NOTE | 2025-04-20 12:20 | P.CONCA_ITS ---
History of Present Illness History of Present Illness Date of Service: 04/20/25 Requesting physician: Susannah Little Chief complaint: Chest Pain Narrative: 50-year-old gentleman who is here for chest pain. He has known history of coronary disease with previous LAD PCI while he was in [place]. Since then he did okay till yesterday when he started having sudden onset chest pains. This was severe chest discomfort and similar to what he felt before he had stents placed in [place]. He is currently pain-free. His EKGs did not show any dynamic changes. His biomarkers are negative. He is on aspirin retirement. He is also on multiple antihypertensive medications. He is a diabetic and is currently on metformin. He is unable to exercise on treadmill due to osteoarthritis. He also has social issues currently and has a dog at home with no one to take care off. [facility] Past Medical History Medical History Abnormal lung sounds Hiatal hernia Powers esophagus determined by biopsy Obesity (BMI 30-39.9) Difficulty swallowing Screening for prostate cancer Screening for colon cancer Adult general medical exam Laboratory exam ordered as part of routine general medical examination Imbalance Left-sided chest wall pain Dizziness Fatigue Unsteady gait Yeast infection of the skin Cough Abnormal CT lung screening Headache Puncture wound of scalp Left knee pain Sacroiliitis Osteoarthritis of knee Infection of skin Exposure to potential infection Urinary hesitancy Decreased visual acuity Low vitamin B12 level Morbid obesity Elevated fasting glucose Chest discomfort COPD (chronic obstructive pulmonary disease) KELSY on CPAP Torn rotator cuff Diabetes High cholesterol Hypertension Family History Family History Other Mental health disorder Substance abuse Surgical History Surgical History History of esophagogastroduodenoscopy (EGD) Hx of colonoscopy Stented coronary artery History of carpal tunnel surgery Social History Social History Household Members Other:: roommate Housing: House Are you a primary career specialist to a significant other at home: No Do you presently have visiting nurse or other home services: No Alcohol intake: never Patient Tobacco Use Status: Former Tobacco user e-Cigarette/Vaping Use: Never Used Second Hand Smoke Exposure: No Advance Directives: No Advance Directives Information Provided: Yes service: No Current occupational status: unemployed Current occupational exposures/hazards: No Cognitive needs: Yes (CANE) Hearing needs: No Vision needs: Yes Meds Allergies Allergy/AdvReac Type Severity Reaction Status Date / Time erythromycin base Allergy Mild Confusion Verified 04/19/25 20:44 clonidine AdvReac Severe Vomiting Verified 04/19/25 20:44 Active Medications: Current Medications Acetaminophen (Acetaminophen 325 Mg Tablet) 975 mg PO Q6H PRN PRN Reason: Pain, Mild 1-3,fever,headache Amitriptyline HCl (Amitriptyline Hcl 50 Mg Tablet) 50 mg PO BEDTIME [facility] Amlodipine Besylate (Amlodipine Besylate 10 Mg Tablet) 10 mg PO DAILY [facility]; Protocol Aripiprazole (Aripiprazole 10 Mg Tablet) 10 mg PO DAILY [facility] Aspirin (Aspirin Enteric Coated 81 Mg Tablet.) 81 mg PO DAILY [facility] Bupropion HCl (Bupropion Hcl Xl 150 Mg Tab.Er.24h) 150 mg PO DAILY [facility] Bupropion HCl (Bupropion Hcl Xl 300 Mg Tab.Er.24h) 300 mg PO DAILY [facility] Calcium Carbonate (Calcium Carbonate 750 Mg Tab.Chew) 750 mg PO Q4H PRN PRN Reason: Heartburn Carvedilol (Carvedilol 25 Mg Tablet) 25 mg PO Q12H [facility]; Protocol Dextrose (Dextrose 50 % 25 Gm/50 Ml Syringe) 25 gm IVPUSH Q15M PRN; Protocol PRN Reason: per Hypoglycemia Standing Ord. Duloxetine HCl (Duloxetine Hcl 30 Mg Capsule.) 30 mg PO DAILY [facility] Enoxaparin Sodium (Enoxaparin Sodium 40 Mg/0.4 Ml Syringe) 40 mg SUBCUT Q24H [facility] Last Admin: 04/20/25 11:23 Dose: 40 mg Escitalopram Oxalate (Escitalopram Oxalate 5 Mg Tablet) 5 mg PO DAILY [facility] Gabapentin (Gabapentin 300 Mg Capsule) 300 mg PO TID [facility] Glucose (Glucose Gel 15 Gm Gel..Gram.) 15 gm PO Q15M PRN; Protocol PRN Reason: per Hypoglycemia Standing Ord. Hydroxyzine HCl (Hydroxyzine Hcl 25 Mg Tablet) 25 mg PO TID@0900,1730,2100 [facility] Hydroxyzine HCl (Hydroxyzine Hcl 50 Mg Tablet) 50 mg PO BEDTIME [facility] Indomethacin (Indomethacin 25 Mg Capsule) 25 mg PO BID [facility] Insulin Human Lispro (Insulin Lispro 100 Unit/Ml 3 Ml Vial) 0 unit SUBCUT QIDACHS [facility]; Protocol Last Admin: 04/20/25 07:49 Dose: Not Given Isosorbide Mononitrate (Isosorbide Mononitrate 30 Mg Tab.Er.24h) 30 mg PO BEDTIME [facility]; Protocol Loratadine (Loratadine 10 Mg Tablet) 10 mg PO BEDTIME [facility] Magnesium Hydroxide (Milk Of Magnesia 30 Ml Oral.Susp) 30 ml PO DAILY PRN PRN Reason: Constipation Melatonin (Melatonin 3 Mg Tablet) 6 mg PO BEDTIME PRN PRN Reason: Insomnia Non-Formulary Medication (Pantoprazole) 40 mg PO BID@0630,1630 [facility] Non-Formulary Medication (Rosuvastatin) 40 mg PO DAILY [facility] Non-Formulary Medication (Ipratropium-Albuterol [Combivent Respimat]) 1 puff INHALE Q6H PRN PRN Reason: Bronchospasm Ondansetron HCl (Ondansetron Hcl 4 Mg/2 Ml Vial) 4 mg IVPUSH Q8H PRN PRN Reason: Nausea and Vomiting Oxycodone HCl (Oxycodone Hcl Immed Release 5 Mg Tablet) 5 mg PO Q6H PRN PRN Reason: Pain, Severe (Pain Scale 7-10) Pramipexole Dihydrochloride (Pramipexole Di-Hcl 0.25 Mg Tablet) 0.5 mg PO BEDTIME [facility] Pyridoxine HCl (Pyridoxine Hcl (Vitamin B6) 50 Mg Tablet) 50 mg PO DAILY [facility] Sodium Chloride (0.9 % Sodium Chloride Flush 3 Ml Syringe) 3 ml IVFLUSH QSHIFT [facility] Last Admin: 04/20/25 09:56 Dose: Not Given Tamsulosin HCl (Tamsulosin Hcl 0.4 Mg Capsule) 0.4 mg PO BEDTIME [facility] Topiramate (Topiramate 100 Mg Tablet) 200 mg PO BID [facility] Tramadol HCl (Tramadol Hcl 50 Mg Tablet) 50 mg PO Q6H PRN PRN Reason: Pain, Moderate(Pain Scale 4-6) Home Medications ?Medication ?Instructions ?Recorded ?Confirmed ?Last Taken ?Type amitriptyline 25 mg tablet 50 mg PO BEDTIME 01/01/23 0 04/20/25 04/18/25 History escitalopram oxalate 5 mg tablet 5 mg PO DAILY 2 3 04/20/25 04/18/25 History hydroxyzine HCl 25 mg tablet 25 mg PO TID@0900,1730,21 00 10/07/23 04/20/25 04/18/25 History ipratropium 20 mcg-albuterol 100 1 puff inhalation Q6H PRN 10/27/23 04/20/25 04/18/25 History mcg/actuation mist for inhalation Bronchospasm (Combivent Respimat) aripiprazole 5 mg tablet 10 mg PO DAILY 04/20/25 09/12/1804/18/25 History bupropion HCl 150 mg 24 hr tablet, 150 mg PO DAILY 04/20/25 04/18/25 History extended release hydroxyzine pamoate 50 mg capsule 50 mg PO BEDTIME ins omnia 04/20/25 04/20/25 04/18/25 History isosorbide mononitrate 30 mg 30 mg PO BEDTIME 04/20/25 04/20/25 04/18/25 History tablet,extended release 24 hr loratadine 10 mg tablet 10 mg PO BEDTIME 04/20/2504/18/25 History meclizine 25 mg tablet 25 mg PO DAILY dizziness 04/20/25 04/18/25 History metformin 500 mg tablet 500 mg PO DAILY 04/20/2504/18/25 History metformin 500 mg tablet 750 mg PO BEDTIME 04/20/25 0 04/20/25 04/18/25 History pantoprazole 40 mg tablet,delayed 40 mg PO BID@0630,16 30 04/20/25 04/20/25 04/18/25 History release Physical Exam 2 Vital Signs: Vital Signs: Last Vital Signs Temp 97.6 F 04/20/25 07:08 Pulse 79 04/20/25 07:08 Resp 20 04/20/25 07:08 BP 111/81 04/20/25 07:08 Pulse Ox 97 04/20/25 07:08 O2 Del Method Room Air 04/20/25 07:08 BMI result Body Mass Index 41.2 GENERAL APPEARANCE: in no acute distress, pleasant. Morbidly obese. NECK: no carotid bruit, no jugular venous distention. SKIN: no suspicious lesions, warm and dry. HEART: no murmurs, regular rate and rhythm. LUNGS: clear to auscultation bilaterally. ABDOMEN: soft, nontender. EXTREMITIES: no edema. PERIPHERAL PULSES: equal. NEUROLOGIC: No gross deficits, AAO X 3 Objective Labs and Meds 04/20/25 13:02 04/20/25 08:18 Lab results: Laboratory Results - last 24 hr 04/19/25 04/19/25 04/20/25 21:17 22:50 06:57 WBC 6.9 RBC 4.67 Hgb 13.8 L Hct 39.4 L MCV 84.4 MCH 29.6 MCHC 35.0 RDW 13.5 Plt Count 183 MPV 9.6 Immature Gran % (Auto) 0.4 Neut % (Auto) 42.6 L Lymph % (Auto) 45.6 H Ed[place] % (Auto) 8.8 Eos % (Auto) 1.7 Baso % (Auto) 0.9 Lymph # (Auto) 3.2 [place] # (Auto) 0.6 Eos # (Auto) 0.1 Baso # (Auto) 0.1 Abs Immat Gran (auto) 0.03 Absolute Neuts (auto) 3.0 Absolute Nucleated RBC 0.000 Nucleated RBC % (auto) 0.0 Sodium 139 Potassium 3.7 Chloride 112 H Carbon Dioxide 21 L Anion Gap 10 L BUN 17 H Creatinine 1.31 Estim Creat Clear Calc 98.0 Estimated GFR 58 POC Glucose 121 H Random Glucose 104 Calcium 9.4 Magnesium 2.3 Total Bilirubin 0.3 AST 42 H ALT 44 H Alkaline Phosphatase 74 Troponin I High Sens < 2.7 < 2.7 Total Protein 7.1 Albumin 4.5 TSH 04/20/25 08:18 WBC 5.9 RBC 4.71 Hgb 13.8 L Hct 40.3 L MCV 85.6 MCH 29.3 MCHC 34.2 RDW 13.4 Plt Count 176 MPV 9.7 Immature Gran % (Auto) Neut % (Auto) Lymph % (Auto) [place] % (Auto) Eos % (Auto) Baso % (Auto) Lymph # (Auto) Ed[place]ds # (Auto) Eos # (Auto) Baso # (Auto) Abs Immat Gran (auto) Absolute Neuts (auto) Absolute Nucleated RBC 0.000 Nucleated RBC % (auto) 0.0 Sodium 141 Potassium 4.1 Chloride 113 H Carbon Dioxide 25 Anion Gap 7 L BUN 15 Creatinine 1.25 Estim Creat Clear Calc 102.7 Estimated GFR > 60 POC Glucose Random Glucose 162 H Calcium 9.2 Magnesium Total Bilirubin AST ALT Alkaline Phosphatase Troponin I High Sens Total Protein Albumin TSH 1.36 Imaging Radiologist's impression: Impressions Chest X-Ray 04/19/25 09:20 IMPRESSION: Clear lungs. Electronically signed by: Arnoldo Acevedo MD 04/20/2025 09:51 AM EDT RP Assessment and Plan (1) Acute chest pain: Status: Acute Plan Acute chest pain in a 50 year gentleman with known history of coronary disease with previous LAD PCI. The chest pain is similar to his pre PCI presentation. Biomarkers are negative. EKGs did not show any dynamic changes. Clinical story concerning for unstable angina. We discussed about management options and after discussion we have decided to proceed with cardiac catheterization. We will start him on a heparin drip. Resume home medications. We will try to transfer him today to do the procedure later today. If this is not possible then we will do this tomorrow. Thank you for allowing me to participate in the care of your patient. Please feel free to contact me if you have any questions. Procedures Date of Service Date of Service: 04/20/25
[2025-04-20 12:46] LABS: Glucose, Whole Blood 134 mg/dL (60-115)
--- NOTE | 2025-04-20 12:58 | P.DS_ITS ---
DS: Providers Provider Date of Service: 04/20/25 Date of admission: 04/20/25 04:32 Date of discharge: 04/20/25 Primary care physician: Leland Trujillo MD Consults: 04/20/25 04:47 Consult to Cardiology Routine Consulting Provider: [facility] Reason for consultation: Chest pain, cad, hx stent Has provider been notified: Yes Attending physician on discharge: Radha Rai Discharging clinician: Susannah Little DS: Diagnosis Discharge Diagnosis (1) Acute chest pain: Status: Acute DS: Summary Hospital Course Hospital Course: From H&P on the day of admission Patient is a 50-year-old male for the past medical history significant for CAD, history AK/stent, COPD, KELSY on CPAP, morbid obesity, HTN, and HLD, who presented to the ED due to intermittent chest pain/pressure starting around 4:30 PM yesterday. He received nitro x2 and 4 baby aspirin by EMS. He reports the pain was located on the left chest radiating to the left shoulder. He has had similar symptoms in the past, followed by Dr. Ash, last stress test was 2 years ago, had a cardiac stent placed at that time. He denies any shortness of breath, nausea, vomiting, palpitations, abdominal pain, urinary symptoms, cough, sore throat or URI symptoms. Workup in the ED with negative EKG, troponins, CTA chest for PE, sx resolved. heart score 5. admit for observation. Chest pain/unstable angina. History of coronary artery disease, presented with intermittent chest pressure. Cardiac enzymes negative x2, , EKG with no acute ischemic changes. Continued on aspirin, statin, beta-keaton, lack acting nitrates. Seen by Cardiology, recommended to start therapeutic heparin drip and transfer for cardiac catheterization. Time Attestation Discharge Coordination Time (in mins): 32 Quality: Safe Use of Opioids Does Pt have an Active Cancer Diagnosis on the Problem List?: No Quality: Stroke Does the patient have a stroke diagnosis?: No Physical Exam Vital Signs: Vital Signs: Last Vital Signs Temp 97.7 F 04/20/25 12:39 Pulse 69 04/20/25 12:39 Resp 18 04/20/25 12:39 BP 142/92 H 04/20/25 12:39 Pulse Ox 97 04/20/25 12:39 O2 Del Method Room Air 04/20/25 12:39 BMI result Body Mass Index 40.3 Const: General: cooperative, comfortable, no acute distress, alert and awake Nutritional Appearance: obese Orientation/consciousness: patient oriented x3 Resp: Effort & Inspection: normal respiratory effort, able to speak in complete sentences, no respiratory distress and no use of accessory muscles Cardio: Rate: regular rate Neuro: General: patient oriented x3 DS: Data Data Completed and Pending Labs on day of discharge: Laboratory Results - last 24 hr 04/19/25 04/19/25 04/20/25 21:17 22:50 06:57 WBC 6.9 RBC 4.67 Hgb 13.8 L Hct 39.4 L MCV 84.4 MCH 29.6 MCHC 35.0 RDW 13.5 Plt Count 183 MPV 9.6 Immature Gran % (Auto) 0.4 Neut % (Auto) 42.6 L Lymph % (Auto) 45.6 H [place] % (Auto) 8.8 Eos % (Auto) 1.7 Baso % (Auto) 0.9 Lymph # (Auto) 3.2 [place] # (Auto) 0.6 Eos # (Auto) 0.1 Baso # (Auto) 0.1 Abs Immat Gran (auto) 0.03 Absolute Neuts (auto) 3.0 Absolute Nucleated RBC 0.000 Nucleated RBC % (auto) 0.0 Sodium 139 Potassium 3.7 Chloride 112 H Carbon Dioxide 21 L Anion Gap 10 L BUN 17 H Creatinine 1.31 Estim Creat Clear Calc 98.0 Estimated GFR 58 POC Glucose 121 H Random Glucose 104 Calcium 9.4 Magnesium 2.3 Total Bilirubin 0.3 AST 42 H ALT 44 H Alkaline Phosphatase 74 Troponin I High Sens < 2.7 < 2.7 Total Protein 7.1 Albumin 4.5 TSH 04/20/25 04/20/25 08:18 12:36 WBC 5.9 RBC 4.71 Hgb 13.8 L Hct 40.3 L MCV 85.6 MCH 29.3 MCHC 34.2 RDW 13.4 Plt Count 176 MPV 9.7 Immature Gran % (Auto) Neut % (Auto) Lymph % (Auto) [place] % (Auto) Eos % (Auto) Baso % (Auto) Lymph # (Auto) [place] # (Auto) Eos # (Auto) Baso # (Auto) Abs Immat Gran (auto) Absolute Neuts (auto) Absolute Nucleated RBC 0.000 Nucleated RBC % (auto) 0.0 Sodium 141 Potassium 4.1 Chloride 113 H Carbon Dioxide 25 Anion Gap 7 L BUN 15 Creatinine 1.25 Estim Creat Clear Calc 102.7 Estimated GFR > 60 POC Glucose 134 H Random Glucose 162 H Calcium 9.2 Magnesium Total Bilirubin AST ALT Alkaline Phosphatase Troponin I High Sens Total Protein Albumin TSH 1.36 Discharge Plan Discharge Patient Disposition: Xfer Acute Care Hospital Discharge Diagnosis: chest pain, unstable angina Referrals: Leland Trujillo MD [Primary Care Provider, Internal Medicine] - 1 Week Discharge Medications: New heparin(porcine) in 0.45% NaCl 25,000 unit/250 mL Parenteral Solution 25,000 unit continuous IV infusion .Q0M Qty: 6000 0RF heparin (porcine) 5,000 unit/mL Solution 5,400 unit IVPUSH PROTOCOL BOLUS PRN (Reason: 40 Unit/Kg - Heparin Protocol) Qty: 25 0RF heparin (porcine) 5,000 unit/mL Solution 10,000 unit IVPUSH PROTOCOL BOLUS PRN (Reason: 80 Unit/Kg - Heparin Protocol) Qty: 25 0RF Continued bupropion HCl 300 mg tablet extended release 24 hr 300 mg PO DAILY 90 Days Qty: 90 2RF tamsulosin 0.4 mg capsule 0.4 mg PO BEDTIME 90 Days Qty: 90 3RF pyridoxine (vitamin B6) 50 mg tablet 50 mg PO DAILY 90 Days Qty: 90 3RF umeclidinium-vilanterol [Anoro Ellipta] 62.5-25 mcg/actuation blister with device 1 inh inhalation Q24H 30 Days Qty: 60 0RF cyanocobalamin (vitamin B-12) 1,000 mcg tablet 1,000 mcg PO DAILY 90 Days Qty: 90 0RF rosuvastatin 40 mg tablet 40 mg PO DAILY 90 Days Qty: 90 3RF cholecalciferol (vitamin D3) 25 mcg (1,000 unit) capsule 25 mcg PO DAILY 90 Days Qty: 90 0RF aspirin [Adult Low Dose Aspirin] 81 mg tablet,delayed release (DR/EC) 81 mg PO DAILY 90 Days Qty: 90 0RF duloxetine 30 mg capsule,delayed release(DR/EC) 30 mg PO DAILY 90 Days Qty: 90 0RF carvedilol 25 mg tablet 25 mg PO Q12H 90 Days Qty: 180 0RF Rx Instructions: must administer with a meal/food amlodipine 10 mg tablet 10 mg PO DAILY 90 Days Qty: 90 0RF indomethacin 25 mg capsule 25 mg PO BID 30 Days Qty: 60 0RF Rx Instructions: administer with food or milk gabapentin 300 mg capsule 300 mg PO TID 30 Days Qty: 90 0RF pramipexole 0.5 mg tablet 0.5 mg PO BEDTIME 30 Days Qty: 30 0RF metformin 500 mg tablet 500 mg PO DAILY pantoprazole 40 mg tablet,delayed release (DR/EC) 40 mg PO BID@0630,1630 Rx Instructions: Take 1 tablet twice daily. Best taken 30-60 minutes before 1st meal of the day aripiprazole 5 mg tablet 10 mg PO DAILY metformin 500 mg Tablet 750 mg PO BEDTIME hydroxyzine pamoate 50 mg capsule 50 mg PO BEDTIME bupropion HCl 150 mg tablet extended release 24 hr 150 mg PO DAILY isosorbide mononitrate 30 mg tablet extended release 24 hr 30 mg PO BEDTIME meclizine 25 mg tablet 25 mg PO DAILY loratadine 10 mg tablet 10 mg PO BEDTIME escitalopram oxalate 5 mg tablet 5 mg PO DAILY amitriptyline 25 mg tablet 50 mg PO BEDTIME hydroxyzine HCl 25 mg tablet 25 mg PO TID@0900,1730,2100 Combivent Respimat 20-100 mcg/actuation mist 1 puff inhalation Q6H PRN (Reason: Bronchospasm) topiramate 100 mg tablet 200 mg PO BID 90 Days Qty: 360 1RF Discharge Orders: Discharge Order (Routine); Ordered 04/20/25 Ordered By: Susannah Little Activity on Discharge: As tolerated Stand Alone Forms: Patient Portal Discharge page Print Language: Monegasque Care Plan Goals: Transfer to tertiary care facility for cardiac catheterization Health Concerns: Coronary artery disease with chest pain/unstable angina Plan of Treatment: Heparin drip and transfer to [facility] for cardiac catheterization Assessment: Unstable angina
[2025-04-20 13:08] LABS: Hematocrit 42.5 % (42.0-52.0); Hemoglobin 14.4 g/dl (14.0-18.0); Mean Corpuscular HGB Conc 33.9 g/dl (31.0-36.0); Mean Corpuscular Hemoglobin 29.2 pg (27.0-33.0); Mean Corpuscular Volume 86.2 fL (80.0-98.0); NRBC Abs Auto 0.000 X10*3/uL (0.0-0.012); NRBC Pct Auto 0.0 /100WBC (0.0-0.2); Platelet Count 204 X10*3/uL (160-400); Red Blood Count 4.93 X10*6/uL (4.60-5.80); White Blood Count 6.0 X10*3/uL (4.8-10.8)
[2025-04-20] MEDS: Aspirin Enteric Coated 81 MG TABLET.DR PO (13:40)
[2025-04-20 14:03] LABS: INTERNATIONAL NORM RATIO 1.1 (0.9-1.1); Prothrombin Time 12.4 SEC (10.9-12.4)
[2025-04-20 14:05] LABS: PTT Heparin Drip 28.8 SEC (53-77.9)
[2025-04-20] MEDS: Heparin Sodium,Porcine/1/2NS 25,000 UNIT/250 ML IV.SOLN 10 UNIT IVCONT (14:14)
--- NOTE | 2025-04-20 16:21 | MHC.CM.PN ---
PT DISCHARGED TODAY TO TRANSFER TO [facility] FOR A CARDIAC CATH
== END 2025-04-20 17:37 | disposition short-term general hospital (02) ==
LOC: HO.ED 04-20 03:48 → HO.EDOVER 04-20 05:28
PROVIDERS: Hospitalist; Admitting Provider Physician Assistant; Emergency Provider Student in an Organized Health Care Education/Training Program; PCP Family Medicine; Visit Provider Physician Assistant Medical
DX: R07.9 Chest pain, unspecified (principal); I20.0 Unstable angina; I10 Essential (primary) hypertension; E11.39 Type 2 diabetes mellitus with other diabetic ophthalmic complication; J44.9 Chronic obstructive pulmonary disease, unspecified; I25.2 Old myocardial infarction; R79.89 Other specified abnormal findings of blood chemistry; E78.5 Hyperlipidemia, unspecified; G47.33 Obstructive sleep apnea (adult) (pediatric); Z99.89 Dependence on other enabling machines and devices; Z79.4 Long term (current) use of insulin; Z79.899 Other long term (current) drug therapy; Z95.5 Presence of coronary angioplasty implant and graft
CPT/HCPCS: 36415; 71045; 71275; 80048; 80053; 82947; 83735; 84443; 84484; 85025; 85027; 85610; 85730; 93005; 93306; 96372; 99222; 99285; J1644; J1650; Q9957; Q9967

== ENCOUNTER → 2025-04-19 23:51 | Outpatient (BNV) | payer OTHER, SELFPAY | PROVIDERS: Admitting Provider Physician Assistant; Emergency Provider Student in an Organized Health Care Education/Training Program; PCP Family Medicine; Visit Provider Internal Medicine Cardiovascular Disease | DX: I44.0 Atrioventricular block, first degree (principal); R07.89 Other chest pain | CPT/HCPCS: 93010 ==

== ENCOUNTER → 2025-04-19 23:54 | Outpatient (BNV) | payer OTHER, SELFPAY | PROVIDERS: Emergency Provider Student in an Organized Health Care Education/Training Program; PCP Family Medicine; Visit Provider Radiology Diagnostic Radiology | DX: J98.11 Atelectasis (principal); R07.89 Other chest pain | CPT/HCPCS: 71045; 71275 ==

== ENCOUNTER → 2025-04-20 04:32 | Outpatient (BNV) | payer OTHER, SELFPAY | PROVIDERS: Admitting Provider Physician Assistant; Emergency Provider Student in an Organized Health Care Education/Training Program; PCP Family Medicine; Visit Provider Internal Medicine Cardiovascular Disease | DX: R07.9 Chest pain, unspecified (principal) | CPT/HCPCS: 93306; 99223 ==

== ENCOUNTER → 2025-04-20 04:32 | Outpatient (BNV) | payer OTHER, SELFPAY | PROVIDERS: Admitting Provider Physician Assistant; Emergency Provider Student in an Organized Health Care Education/Training Program; PCP Family Medicine; Visit Provider Physician Assistant Medical | DX: R07.9 Chest pain, unspecified (principal) | CPT/HCPCS: 99234; 99499 ==

== ENCOUNTER 2025-04-24 09:28 | Outpatient (REF) | payer OTHER, SELFPAY ==
--- OUTSIDE RECORDS SUMMARY | 2025-04-24 10:17 | XMS_ITS | Clinical Summary ---
Author Organization 175 [facility] Address [address] [place] [address] Phone Care Team Providers Care Search Engineer Name Role Phone Leland Trujillo MD Primary Care Provider [phone] Allergies Active Allergy Reactions Criticality Noted Date [...] AM EDT Office Visit Orthopedic Surgery - [address] [phone] Joe Diaz, AIDA Controlled type 2 diabetes with neuropathy ([facility] V24, [facility] V28) (Primary Dx); Lumbosacral radiculopathy; Arthritis of both feet; Dermatophytosis, nail from Last 3 Months Immunizations Immunization Administration Dates Next Due Moderna SARS-CoV-2 COVID-19, mRNA, LNP-S, preservative free 12/01/2020,11/03/2020 Medical History Medical History Date Comments Diabetes mellitus ([facility] V24, [facility] V28) DX:Diabetes mellitus (HCC) Heart attack ([facility] V24, [facility] V28) DX:Heart attack (HCC) Mixed hyperlipidemia [...] AM EDT Office Visit Orthopedic Surgery - [place] [address] [facility] [address] [place] [phone] Joe Diaz DPM [address] [address] Health Maintenance Due Date Last Done Comments Colorectal Cancer Screening: Colonoscopy 1976 Diabetes: Annual Foot Exam 01/05/1986 Diabetes: Annual Retina Eye Exam 01/05/1986 Hepatitis B Vaccines (1 of 3 - 19+ 3-dose series) 01/05/1995 Pneumococcal Vaccine: Pediatrics (0 to 5 Years) and At-Risk Patients (6 to 49 Years) (2 of 2 - PCV) 12/04/2019 12/03/2018 HIV Screening 06/24/2022 Social Influencers of Health [...] 12/29/2033 12/30/2023, 06/17/2020, 05/15/2015, Additional history exists RSV Immunization Adult Patients (1 - 1-dose 75+ series) 01/05/2051 Hepatitis C Screening Completed 09/01/2020 HIB Vaccines [...] * Annual BMP Blood Test (06/29/2021) Pathologist [facility] Annual BMP Blood Test abstracted us Historical Provider HEALTH MAINTENANCE Final Result * Hemoglobin A1c (06/29/2021) Pathologist [facility] Hemoglobin A1C 0.0 % Comment:abstracted, no inter pretation Blood Venous blood specimen / Unknown us Historical Provider LAB BLOOD ORDERABLES Rebeca l Result * Lipid panel (06/29/2021) Pathologist [facility] LDL/HDL Ratio 0 Comment:abstracted, no inter pretation Triglycerides 0 mg/dL Comment:abstracted, no inter pretation Cholesterol 0 mg/dL Comment:abstracted, no inter pretation HDL 0 mg/dL Comment:abstracted, no inter pretation LDL Cholesterol 0.0 mg/dL Comment:abstracted, no inter pretation Blood Venous blood specimen / Unknown Result [facility] Provider LAB BLOOD ORDERABLES Rebeca l Result * Hepatitis C Screening (09/01/2020) Pathologist [facility] Hepatitis C Screening abstracted Result [facility] Provider HEALTH MAINTENANCE Final Result * Urine Albumin Creatinine Ratio (02/03/2020) Pathologist [facility] Urine Albumin Creatinine Ratio abstracted [facility] Provider HEALTH MAINTENANCE Final Result from Last 3 Months or Most Recently Relevant to Health Maintenance Insurance [facility] [employer] Care Teams Search Engineer Relationship Specialty Start Date End Date Leland Trujillo MD [address] [place] [address] Dr Michelle MA PCP - General 05/09/22
[2025-04-24 11:28] LABS: HBS Num1 0.69 mIU/mL (0-7.99); HBc Num1 0.04 S/CO (0.00-0.79); HBsAGNum1 0.31 S/CO (0.00-0.99); HIV Num 1 0.05 S/CO (0.00-0.99); Hepatitis B Surface Antigen Negative (Negative); ~HepC Num1 0.12 S/CO (0.00-0.79); ~Hepatitis B Surface Antibody NONREACTIVE (Nonreactive); ~Hepatitis C Antibody Nonreactive (Nonreactive)
[2025-04-24 11:32] LABS: Syphilis Screen Nonreactive (Nonreactive)
== END 2025-04-24 09:29 | disposition home or self-care (01) ==
LOC: HO.LAB 09:28
PROVIDERS: PCP Family Medicine; Visit Provider Family Medicine
DX: Z01.84 Encounter for antibody response examination (principal); Z11.59 Encounter for screening for other viral diseases; Z11.4 Encounter for screening for human immunodeficiency virus [HIV]; Z20.2 Contact with and (suspected) exposure to infections with a predominantly sexual mode of transmission
CPT/HCPCS: 36415; 86704; 86706; 86780; 86803; 87340; 87389

== ENCOUNTER 2025-05-03 09:29 | Outpatient (REF) | payer OTHER, SELFPAY ==
--- NOTE | ~2025-05-03 | FL_ITS ---
EXAMINATION: XR FLUOROSCOPY BARIUM SWALLOW CLINICAL INFORMATION: Evaluate hiatal hernia seen on 02/02/2025 EGD. Patient complaining of upper esophageal dysphagia with food getting stuck constantly in upper esophagus. Patient states recent dilatation, which was ineffective . COMPARISON: 08/19/2023 modified barium swallow. TECHNIQUE: Fluoroscopic air contrast barium swallow examination was performed utilizing standard techniques with thin and thick barium and effervescent granules. Numerous spot images were obtained. Several fluoroscopic image hold cine sequences were also obtained. FINDINGS: BARIUM SWALLOW: Lateral cine images of the oropharynx and hypopharynx demonstrate normal swallow mechanism with normal epiglottic inversion and soft palate elevation. No laryngeal penetration, glottic or subglottic aspiration identified. No nasopharyngeal reflux present. Hypopharyngeal structures appear normal without evidence of mass or diverticulum. 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 Dual and single contrast images of the esophagus demonstrate normal caliber, contour, and mucosal pattern. No evidence of stricture, mass, or ulcerations identified. Esophageal peristalsis was mildly disordered. Small type I hiatus hernia present. Mild gastroesophageal reflux was noted during the exam to the level of the aortic arch. Normal-appearing GE junction. Dual contrast and single contrast images of the stomach demonstrated normal contour and mucosal pattern without evidence of mass, ulceration, or other abnormality. Normal gastric rugal fold pattern. Contrast freely passed into the gastric antrum and duodenal bulb without delay. FLUOROSCOPY TIME: 2 minutes 43 seconds Number of Spot Images:6 Number of cines obtained: 10 DOSE AREA PRODUCT: [id number] uGy-m2 (microgray-meter squared) FL/FL barium swallow with air IMPRESSION: 1. There is moderate cricopharyngeal achalasia present. 2. There is mildly disordered esophageal peristalsis. 3. There is a small type I hiatus hernia present. 4. Mild gastroesophageal reflux noted to the level of the aortic arch. 5. Normal-appearing stomach. Electronically signed by: Jose Meyer MD 05/03/2025 10:31 AM EDT
== END 2025-05-03 09:30 | disposition home or self-care (01) ==
LOC: HO.XRAY 09:29
PROVIDERS: PCP Family Medicine; Visit Provider Nurse Practitioner Family
DX: R13.19 Other dysphagia (principal); K44.9 Diaphragmatic hernia without obstruction or gangrene
CPT/HCPCS: 74221

== ENCOUNTER → 2025-05-03 09:31 | Outpatient (BNV) | payer OTHER, SELFPAY | PROVIDERS: PCP Family Medicine; Visit Provider Radiology Diagnostic Radiology | DX: R13.19 Other dysphagia (principal) | CPT/HCPCS: 74221 ==

== ENCOUNTER 2025-05-04 10:33 | Outpatient (AMB) | payer OTHER, SELFPAY ==
--- NOTE | 2025-05-04 10:33 | A.OFFPC_ITS ---
Intake Visit Reasons: f/u labs via telemed Intake Note: Telehealth follow up to review labs. Distribution Center Supervisor Required: No Allergies erythromycin base Allergy (Mild, Verified 05/04/25 10:33) Confusion clonidine Adverse Reaction (Severe, Verified 05/04/25 10:33) Vomiting Tobacco use date assessed: 05/04/25 Dental Screening Dental Screen Date: 05/04/25 Did you have a dental visit in the last 12 months?: Yes Did you have a dental problem in the last 6 months where you did not have access to dental care?: No Was dental information given to patient?: Patient has dentist HPI f/u labs via telemed HPI Details 50 y/o male presents to review labs for STD/STI testing. Also concerns for bronchitis/early pneumonia. Recent chest x-ray negative. STD/STI testing negative. Reports ongoing difficulty swallowing. 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 Obesity (BMI 30-39.9) Difficulty swallowing Screening for prostate cancer Screening for colon cancer Adult general medical exam Laboratory exam ordered as part of routine general medical examination Imbalance Left-sided chest wall pain Dizziness Fatigue Unsteady gait Yeast infection of the skin Cough Abnormal CT lung screening Headache Puncture wound of scalp Left knee pain Sacroiliitis Osteoarthritis of knee Infection of skin Exposure to potential infection Urinary hesitancy Decreased visual acuity Low vitamin B12 level Morbid obesity Elevated fasting glucose Chest discomfort COPD (chronic obstructive pulmonary disease) KELSY on CPAP Torn rotator cuff Diabetes High cholesterol Hypertension Surgical History History of esophagogastroduodenoscopy (EGD) Hx of colonoscopy Stented coronary artery History of carpal tunnel surgery Family History Other Mental health disorder Substance abuse Social History Household Members Other:: roommate Housing: House Are you a primary auto care center manager to a significant other at home: No Do you presently have visiting nurse or other home services: No Alcohol intake: never Patient Tobacco Use Status: Former Tobacco user e-Cigarette/Vaping Use: Never Used Second Hand Smoke Exposure: No service: No Current occupational status: unemployed Current occupational exposures/hazards: No Cognitive needs: Yes (CANE) Hearing needs: No Vision needs: Yes Questionnaire Thrive Questionnaire Date Thrive assessed: 11/14/24 LAMBERTO-7 AMB Questionnaire LAMBERTO-7 Date LAMBERTO - 7 assessed: 11/14/24 Source: Developed by Drs. Arnoldo Carreno, Dyan Edwards, Alvarez Jose and colleagues, with an educational shanna from [employer]. Physical exam (Primary Care) Tobacco/Smoking Status: Tobacco use Status Tobacco use date assessed 05/04/25 05/04/25 10:34 Patient Tobacco Use Status Former Tobacco user 05/04/25 10:34 e-Cigarette/Vaping Use Never Used 05/04/25 10:34 Thrive Assessment: Date of Thrive Assessment Date Thrive assessed 11/14/24 05/04/25 10:34 Telehealth Telehealth Telehealth Platform: Telephone Location of provider rendering services: practice address Location of patient: address on file Patient Identification confirmed using: Name, : Yes Telehealth method: voice only Patient verbally consented to treatment: Yes Patient verbally consented to billing insurance company: Yes Patient informed of any privacy concerns related to visit: Yes Minutes spent on Phone/Video with Pt.: 5 Coding Level of Care Code Tele Est Pt Level 2 (67176) Diagnoses Acute chest pain R07.9 Screening for STD (sexually transmitted disease) Z11.3 Esophageal dysphagia R13.19 Dysphagia type: esophageal phase Assessment & Plan Assessment & Plan (1) Acute chest pain: Code(s): R07.9 - Chest pain, unspecified Category: Medical Plan: Patient went to the ED for acute chest pain. He was admitted due to history of coronary artery disease and stents. CTA negative for PE Troponins were flat He did have a coronary catheterization while admitted in this was negative as well Cardiology consult suggested that this was likely esophageal discomfort. He has been seen by Gastroenterology has been undergoing barium swallow studies Continue following up with Gastroenterology as recommended (2) Screening for STD (sexually transmitted disease): Code(s): Z11.3 - Encounter for screening for infections with a predominantly sexual mode of transmission Category: Medical Plan: STI testing negative (3) Difficulty swallowing: Code(s): R13.10 - Dysphagia, unspecified Category: Medical Qualifiers: Dysphagia type: esophageal phase Qualified Code(s): R13.19 - Other dysphagia Plan: As above, follow-up with Gastroenterology They are planning a modified barium swallow as well
== END 2025-05-04 17:05 ==
LOC: HO.HMCFM 10:33
PROVIDERS: PCP Family Medicine; Visit Provider Family Medicine
DX: R07.9 Chest pain, unspecified (principal); Z11.3 Encounter for screening for infections with a predominantly sexual mode of transmission; R13.19 Other dysphagia

== ENCOUNTER 2025-05-19 08:28 | Outpatient (AMB) | payer OTHER, SELFPAY ==
--- NOTE | 2025-05-19 08:30 | A.OFFVIS_ITS ---
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 Patient cc: C.O. persistent and worsening GERD sx despite current therapy. Pt states that, unfortunately, the pantoprazole is not working as well as the omeprazole had been. Algebra Teacher Required: No Accompanied by: Self / Same As Patient Allergies erythromycin base Allergy (Mild, Verified 05/04/25 10:33) Confusion clonidine Adverse Reaction (Severe, Verified 05/04/25 10:33) Vomiting Medication List - Last Reconciled 05/19/25 by Annette Sorensen CNP amitriptyline 50 mg PO BEDTIME amlodipine 10 mg PO DAILY 90 days aripiprazole 10 mg PO DAILY aspirin (Adult Low Dose Aspirin) 81 mg PO DAILY 90 days bupropion HCl XL 150 mg PO DAILY bupropion HCl XL 300 mg PO DAILY 90 days carvedilol 25 mg PO Q12H 90 days cholecalciferol (vitamin D3) 25 mcg PO DAILY 90 days cyanocobalamin (vitamin B-12) 1,000 mcg PO DAILY 90 days duloxetine 30 mg PO DAILY 90 days escitalopram oxalate 5 mg PO DAILY gabapentin 300 mg PO TID 30 days heparin (porcine) 5,400 units (1.08 mL) IVPUSH PROTOCOL BOLUS PRN heparin (porcine) 10,000 units (2 mL) IVPUSH PROTOCOL BOLUS PRN heparin(porcine) in 0.45% NaCl 25,000 unit/250 mL 25,000 units (250 mL) cont inuous IV infusion .Q0M hydroxyzine HCl 25 mg PO TID@0900,1730,2100 hydroxyzine pamoate 50 mg PO BEDTIME indomethacin 25 mg PO BID 30 days ipratropium-albuterol 20-100 mcg/actuation (Combivent Respimat) 1 puff inhalation Q6H PRN isosorbide mononitrate ER 30 mg PO BEDTIME lisinopril 5 mg PO DAILY loratadine 10 mg PO BEDTIME 90 days meclizine 25 mg PO DAILY metformin 750 mg PO BEDTIME metformin 500 mg PO DAILY omeprazole 20 mg PO BID pramipexole 0.5 mg PO BEDTIME 30 days pyridoxine (vitamin B6) 50 mg PO DAILY 90 days rosuvastatin 40 mg PO DAILY 90 days tamsulosin 0.4 mg PO BEDTIME 90 days topiramate 200 mg (2 x 100 mg) PO BID 90 days umeclidinium-vilanterol 62.5-25 mcg/actuation (Anoro Ellipta) 1 inh inhalation Q24H 30 days HPI HPI 3m: Details: Patient is a 41-year-old male with PMH of hypertension, hyperlipidemia, anxiety with depression, diabetes, migraine, COPD, KELSY, nicotine dependence, CAD and GERD. FU for GERD, dysphagia, and ongoing swallowing difficulties. Review of barium swallow results. Assess recent change in symptom control, response to PPI, and constipation. Needs documentation for trial attorney. Since last visit, pt continues to experience oropharyngeal symptoms including burning in the back of throat and persistent acid taste, particularly in association w/ chronic cough. Reports that pantoprazole has not provided as much relief as prior omeprazole regimen. Denies difficulty obtaining meds; has adequate supply. No new dysphagia or food impaction reported. Adherent to prior swallowing techniques and modifications, including water sips with food and upright positioning per speech therapy Constipation is ongoing (BM every 2-3 days, sometimes requires pushing) and no current regimen for this. Diet is predominantly processed foods and limited fiber. No interim hospitalizations for GI symptoms; noted ED visit for chest pain since last visit, w/ extensive negative cardiac w/u, attributed in part to esophageal issues. No other new GI sx. 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 Obesity (BMI 30-39.9) Difficulty swallowing Screening for prostate cancer Screening for colon cancer Adult general medical exam Laboratory exam ordered as part of routine general medical examination Imbalance Left-sided chest wall pain Dizziness Fatigue Unsteady gait Yeast infection of the skin Cough Abnormal CT lung screening Headache Puncture wound of scalp Left knee pain Sacroiliitis Osteoarthritis of knee Infection of skin Exposure to potential infection Urinary hesitancy Decreased visual acuity Low vitamin B12 level Morbid obesity Elevated fasting glucose Chest discomfort COPD (chronic obstructive pulmonary disease) KELSY on CPAP Torn rotator cuff Diabetes High cholesterol Hypertension Surgical History History of esophagogastroduodenoscopy (EGD) Hx of colonoscopy Stented coronary artery History of carpal tunnel surgery Family History Other Mental health disorder Substance abuse Social History Household Members Other:: roommate Housing: House Are you a primary long term care administrator to a significant other at home: No Do you presently have visiting nurse or other home services: No Alcohol intake: never Patient Tobacco Use Status: Former Tobacco user e-Cigarette/Vaping Use: Never Used Second Hand Smoke Exposure: No service: No Current occupational status: unemployed Current occupational exposures/hazards: No Cognitive needs: Yes (CANE) Hearing needs: No Vision needs: Yes Review of Systems Const Reports as per HPI ENT Reports as per HPI Card Reports as per HPI Resp Reports as per HPI GI Reports as per HPI Reports as per HPI Physical Exam Vital Signs: Last Vital Signs Pulse 86 05/19/25 08:32 BP 108/62 05/19/25 08:32 Pulse Ox 95 05/19/25 08:32 Oxygen Delivery Method Room Air 05/19/25 08:32 BMI result Body Mass Index 40.4 Const General: healthy appearing, no acute distress and well developed Nutritional Appearance: average body habitus Orientation/consciousness: patient oriented x3 HEENT Head: Yes normal to inspection, Yes normocephalic and Yes atraumatic Face and sinus: Yes normal facial exam Eyes General: appearance normal, both eyes and all related structures Neck Neck: Yes normal visual inspection Resp Effort & Inspection: normal respiratory effort, able to speak in complete sentences, no tracheal deviation and symmetric chest movement Neuro General: patient oriented x3 Gait exam (Neuro): Normal gait present Psych Appearance: grossly normal Mental Status: mental status grossly normal Speech and movement: Normal speech and movement present Affect: normal affect Attitude: cooperative Thought process: Normal thought process present Thought content: Normal thought content present Insight: Good insight present (Psych) Judgement: Good judgement present (Psych) Results Reviewed Results Reviewed: Date of Service: 05/03/25 Procedure(s): FL barium swallow with air Accession Number(s): [id number] cc: Leland Trujillo MD; Annette Sorensen [facility]~ Reason for Exam: R13.19 - Other dysphagia EXAMINATION: XR FLUOROSCOPY BARIUM SWALLOW CLINICAL INFORMATION: Evaluate hiatal hernia seen on 02/02/2025 EGD. Patient complaining of upper esophageal dysphagia with food getting stuck constantly in upper esophagus. Patient states recent dilatation, which was ineffective . COMPARISON: 08/19/2023 modified barium swallow. TECHNIQUE: Fluoroscopic air contrast barium swallow examination was performed utilizing standard techniques with thin and thick barium and effervescent granules. Numerous spot images were obtained. Several fluoroscopic image hold cine sequences were also obtained. FINDINGS: BARIUM SWALLOW: Lateral cine images of the oropharynx and hypopharynx demonstrate normal swallow mechanism with normal epiglottic inversion and soft palate elevation. No laryngeal penetration, glottic or subglottic aspiration identified. No nasopharyngeal reflux present. Hypopharyngeal structures appear normal without evidence of mass or diverticulum. 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 Dual and single contrast images of the esophagus demonstrate normal caliber, contour, and mucosal pattern. No evidence of stricture, mass, or ulcerations identified. Esophageal peristalsis was mildly disordered. Small type I hiatus hernia present. Mild gastroesophageal reflux was noted during the exam to the level of the aortic arch. Normal-appearing GE junction. Dual contrast and single contrast images of the stomach demonstrated normal contour and mucosal pattern without evidence of mass, ulceration, or other abnormality. Normal gastric rugal fold pattern. Contrast freely passed into the gastric antrum and duodenal bulb without delay. FLUOROSCOPY TIME: 2 minutes 43 seconds Number of Spot Images:6 Number of cines obtained: 10 DOSE AREA PRODUCT: 4515 uGy-m2 (microgray-meter squared) FL/FL barium swallow with air IMPRESSION: 1. There is moderate cricopharyngeal achalasia present. 2. There is mildly disordered esophageal peristalsis. 3. There is a small type I hiatus hernia present. 4. Mild gastroesophageal reflux noted to the level of the aortic arch. 5. Normal-appearing stomach. Assessment & Plan Assessment & Plan (1) GERD (gastroesophageal reflux disease): Comment: 02/02/25 EGD-rojas's Esophageal polyp (Superficial fragments of squamous epithelium) , Proximal esophageal narrowing (dilation), Hiatal hernia. Surveillance due 2030 Code(s): K21.9 - Gastro-esophageal reflux disease without esophagitis Category: Medical Qualifiers: Esophagitis presence: esophagitis presence not specified Qualified Code(s): K21.9 - Gastro-esophageal reflux disease without esophagitis Plan: Symptom recurrence w/ pantoprazole; pt found omeprazole more effective. Additional testing: - None pending; last EGD completed, scheduled for repeat in 5 yrs unless new sx. Medications: - discontinue pantoprazole - Resume omeprazole 20 mg PO BID (pt already has adequate supply). - Monitor for ongoing sx, side effects (flex. diarrhea, MICHAEL). Lifestyle Recommendations: - Reinforce existing: upright posture after meals, small bites, chew thoroughly, avoid eating close to bedtime, maintain hydration. - Initiate further education on weight loss and [id number] diet; minimize processed foods; encourage increased fruit, veg, beans as tolerated. - Written summary and education provided verbally and portal access clarified for print needs. Referrals / Coordination of Care: - Annual GI FU for Rojas?s; coordinate with medical records as needed for paperwork. Follow-Up Plan: - Reassess GERD sx at next GI FU (3 months). Instruct to call sooner if worsening or alarm sx (dysphagia progression, odynophagia, weight loss). 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 Surveillance due 2030 Code(s): K22.70 - Rojas's esophagus without dysplasia Category: Medical Plan: As above (3) Esophageal abnormality: Code(s): K22.9 - Disease of esophagus, unspecified Category: Medical Plan: Objective dysmotility confirmed;Barium study suggestive of achalasia. Awaiting definitive manometric dx and mgmt guidance. Additional testing: - Esophageal manometry referral placed 01/2025 to [facility] ([address], [address] Pt advised to contact for scheduling. No GI consult needed, testing only. Medications: - No change until further w/u. Lifestyle Recommendations: - Ongoing use of water with each bite, careful/small bites, upright posture after eating as per prior speech recommendations. Referrals / Coordination of Care: - Manometry referral to [facility]; ensure results sent to GI once completed. Follow-Up Plan: - Pending manometry results; plan for mgmt after diagnosis confirmed (4) Constipation: Code(s): K59.00 - Constipation, unspecified Category: Medical Qualifiers: Constipation type: unspecified constipation type Qualified Code(s): K59.00 - Constipation, unspecified Plan: Chronic, ongoing problem?BM q2-3 days, some straining, no regimen. - Constipation may exacerbate GERD sxs, no current maintenance laxative. Additional testing: - None at this time. Medications: - Initiate Miralax 17 g (1 capful) daily PO; pt has at home. Review response in 3 months or earlier prn. Lifestyle Recommendations: - Reinforce hydration. - Increase dietary fiber?fruits, veg, beans as tolerated, minimize highly processed foods. Referrals / Coordination of Care: - None at present. Follow-Up Plan: - Assess stool frequency, consistency, and impact on GERD at next FU. (5) BMI 40.0-44.9, adult: Code(s): Z68.41 - Body mass index [BMI] 40.0-44.9, adult Category: Medical Plan: Stable, ongoing dietary and metabolic mgmt issues. Rationale: - Increased weight/processed food intake increases intra-abd pressure, worsens reflux and overall health. Additional testing: - None at this time. Medications: - No changes in DM mgmt per GI. Lifestyle Recommendations: - Strong reinforcement of whole-food, low-processed diet. - Caution w/ rice and starchy foods due to DM. Referrals / Coordination of Care: - Continue primary and DM specialty co-mgmt. Follow-Up Plan: - Monitor weight and metabolic parameters at regular non-GI follow-up. Plan Follow-up in 3 months or sooner as needed Time: I spent a total of 30 minutes on the date of encounter which includes: Preparing to see the patient (reviewed previous documentation, test results and medical history) Performing a medically appropriate exam and/or evaluation Ordering medications, tests, and procedures Documenting clinical information in the health record Medications: Discontinued pantoprazole Discontinued Reason: Doctor's Order 40 mg PO BID 180 tabs 0RF Coding Level of Care Code Established Pt Est Pt Level 3 (85051) Patient Type Established Diagnoses Gastroesophageal reflux disease, unspecified whether esophagitis present K21.9 Esophagitis presence: esophagitis presence not specified 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
[2025-05-19 08:32] VITALS: BP 108/62; PULSE 86; O2SAT 95; BMI 40.4
== END 2025-05-19 09:07 | disposition home or self-care (01) ==
LOC: HO.HGI 08:29
PROVIDERS: PCP Family Medicine; Visit Provider Nurse Practitioner Family
DX: K21.9 Gastro-esophageal reflux disease without esophagitis (principal); K22.70 Barrett's esophagus without dysplasia; K22.9 Disease of esophagus, unspecified; K59.00 Constipation, unspecified; Z68.41 Body mass index [BMI] 40.0-44.9, adult
CPT/HCPCS: 99213

== ENCOUNTER → 2025-05-19 08:28 | Outpatient (BNVA) | payer OTHER, SELFPAY | PROVIDERS: PCP Family Medicine; Visit Provider Nurse Practitioner Family | DX: K22.70 Barrett's esophagus without dysplasia (principal); K21.9 Gastro-esophageal reflux disease without esophagitis; K22.9 Disease of esophagus, unspecified; K59.00 Constipation, unspecified; E66.01 Morbid (severe) obesity due to excess calories; Z68.41 Body mass index [BMI] 40.0-44.9, adult | CPT/HCPCS: 99212 ==

== ENCOUNTER 2025-05-26 11:22 | Outpatient (AMB) | payer OTHER, SELFPAY ==
--- NOTE | 2025-05-26 11:04 | A.OFFPC_ITS ---
Vital Signs 05/26/25 11:28 Height 6 ft Weight 302 lb 6 oz BMI 41.0 BP 104/66 Blood Pressure Location Rt brachial Position Sitting Respiration 16 Pulse 82 Pulse Source Pulse Oximeter Temp 98.0 F Temp Source Oral Pulse Oximetry (%) 98 Oxygen Delivery Method Room Air Intake Visit Reasons: Discharge Follow-Up /C transferred [place] [facility] Intake Note: patient is schedule to review chest x-ray and persistent cough with no relief w/prescribe Rx Assessment Manager Required: No Allergies erythromycin base Allergy (Mild, Verified 05/26/25 11:26) Confusion clonidine Adverse Reaction (Severe, Verified 05/26/25 11:26) Vomiting Medication List - Last Reconciled 05/26/25 by Leland Trujillo MD amitriptyline 50 mg PO BEDTIME amlodipine 10 mg PO DAILY 90 days aripiprazole 10 mg PO DAILY aspirin (Adult Low Dose Aspirin) 81 mg PO DAILY 90 days bupropion HCl XL 150 mg PO DAILY bupropion HCl XL 300 mg PO DAILY 90 days carvedilol 25 mg PO Q12H 90 days cholecalciferol (vitamin D3) 25 mcg PO DAILY 90 days cyanocobalamin (vitamin B-12) 1,000 mcg PO DAILY 90 days doxycycline hyclate 100 mg PO BID 7 days duloxetine 30 mg PO DAILY 90 days escitalopram oxalate 5 mg PO DAILY gabapentin 300 mg PO TID 30 days heparin (porcine) 5,400 units (1.08 mL) IVPUSH PROTOCOL BOLUS PRN heparin (porcine) 10,000 units (2 mL) IVPUSH PROTOCOL BOLUS PRN heparin(porcine) in 0.45% NaCl 25,000 unit/250 mL 25,000 units (250 mL) continuous IV infusion .Q0M hydroxyzine HCl 25 mg PO TID@0900,1730,2100 hydroxyzine pamoate 50 mg PO BEDTIME indomethacin 25 mg PO BID 30 days ipratropium-albuterol 20-100 mcg/actuation (Combivent Respimat) 1 puff inhalation Q6H PRN isosorbide mononitrate ER 30 mg PO BEDTIME lisinopril 5 mg PO DAILY loratadine 10 mg PO BEDTIME 90 days meclizine 25 mg PO DAILY metformin 750 mg PO BEDTIME metformin 500 mg PO DAILY omeprazole 20 mg PO BID pramipexole 0.5 mg PO BEDTIME 30 days prednisone 4 tabs daily for 4 days, 3 tabs daily for 2 days, 2 tabs daily for 2 days, 1 tab daily for 2 days PO daily; 10 days pyridoxine (vitamin B6) 50 mg PO DAILY 90 days rosuvastatin 40 mg PO DAILY 90 days tamsulosin 0.4 mg PO BEDTIME 90 days topiramate 200 mg (2 x 100 mg) PO BID 90 days umeclidinium-vilanterol 62.5-25 mcg/actuation (Anoro Ellipta) 1 inh inhalation Q24H 30 days Tobacco use date assessed: 05/04/25 Dental Screening Dental Screen Date: 05/04/25 HPI Discharge Follow-Up /[facility] transferred to [facility] Details 50 y/o male presents to f/u [facility]. Reports an ongoing persistent cough. Continues to take his omeprazole and follows up with his GI specialist. He notes he continues taking omeprazole for GERD. [facility] Medical History (Updated 05/26/25 @ 11:27 by Leland Trujillo MD) Cough BMI 40.0-44.9, adult Esophageal abnormality Constipation Abnormal lung sounds Hiatal hernia Powers esophagus determined by biopsy Obesity (BMI 30-39.9) Difficulty swallowing Screening for prostate cancer Screening for colon cancer Adult general medical exam Laboratory exam ordered as part of routine general medical examination Imbalance Left-sided chest wall pain Dizziness Fatigue Unsteady gait Yeast infection of the skin Abnormal CT lung screening Headache Puncture wound of scalp Left knee pain Sacroiliitis Osteoarthritis of knee Infection of skin Exposure to potential infection Urinary hesitancy Decreased visual acuity Low vitamin B12 level Morbid obesity Elevated fasting glucose Chest discomfort COPD (chronic obstructive pulmonary disease) KELSY on CPAP Torn rotator cuff Diabetes High cholesterol Hypertension Surgical History History of esophagogastroduodenoscopy (EGD) Hx of colonoscopy Stented coronary artery History of carpal tunnel surgery Family History Other Mental health disorder Substance abuse Social History Household Members Other:: roommate Housing: House Are you a primary pet care worker to a significant other at home: No Do you presently have visiting nurse or other home services: No Alcohol intake: never Patient Tobacco Use Status: Former Tobacco user e-Cigarette/Vaping Use: Never Used Second Hand Smoke Exposure: No service: No Current occupational status: unemployed Current occupational exposures/hazards: No Cognitive needs: Yes (CANE) Hearing needs: No Vision needs: Yes Questionnaire Thrive Questionnaire Date Thrive assessed: 11/14/24 LAMBERTO-7 AMB Questionnaire LAMBERTO-7 Date LAMBERTO - 7 assessed: 11/14/24 Source: Developed by Drs. Arnoldo Carreno, Dyan Edwards, Alvarez Jose and colleagues, with an educational shanna from [employer]. Review of Systems Const Denies chills, Denies fatigue, Denies fever(s), Denies headache(s) and Denies weakness ENT Denies dizziness and Denies headache(s) Card Denies dyspnea Resp Reports cough, Denies dyspnea and Denies wheezing Musc Denies numbness and Denies tingling Neuro Denies dizziness, Denies headache(s), Denies numbness, Denies tingling and Denies weakness Psych Denies anxiety and Denies depression Endo Denies fatigue Aller/Immun Denies wheezing Physical exam (Primary Care) Tobacco/Smoking Status: Tobacco use Status Tobacco use date assessed 05/04/25 05/26/25 11:05 Patient Tobacco Use Status Former Tobacco user 05/26/25 11:05 e-Cigarette/Vaping Use Never Used 05/26/25 11:05 Thrive Assessment: Date of Thrive Assessment Date Thrive assessed 11/14/24 05/26/25 11:05 Const General: well developed; No acute distress Nutritional Appearance: well nourished Orientation/consciousness: patient oriented x3 HENMT Head: Yes normocephalic and Yes atraumatic Eyes General: appearance normal, both eyes and all related structures Pupils: Equal, round and reactive pupils present EOM: EOMs intact bilaterally Resp Effort & Inspection: normal respiratory effort Auscultation: clear to auscultation bilaterally Cardio Rate: regular rate Rhythm: regular rhythm Heart sounds: S1 normal heart sound present, S2 normal heart sound present, no gallops, no murmurs and no rubs Neuro General: patient oriented x3 and gait normal Cranial nerves: Yes Equal, round and reactive pupils present Psych Affect: normal affect Coding Level of Care Code Est Pt Level 3 (74780) Diagnoses Cough R05.9 Assessment & Plan Assessment & Plan (1) Cough: Code(s): R05.9 - Cough, unspecified Category: Medical Plan Patient with COPD as well as GERD presenting with worsening cough and shortness of breath. Recent hospital visit for chest pain but patient has no further chest pain. Had given him a script for short course of prednisone and cephalexin at prior visit. Lungs today sound clear though patient says he is bringing up sputum in the mornings Will give him a script for doxycycline and also a prednisone taper rather than 5 day course of steroid. He is on a PPI for severe reflux. He will continue this. I will give him a short course of famotidine as well He has an upcoming appointment with his asbestos removal worker in about 2 weeks. He will call to see if a sooner appointment is available but should see his asbestos removal worker at scheduled appointment if not. Follow-up with Gastroenterology as well Will follow-up with him at the end of May. He can call or return sooner if worsening or not improving. Chest x-ray is ordered Orders: Orders XR chest 2V Today R05.9 - Cough, unspecified Medications: New prednisone 4 tabs daily for 4 days, 3 tabs daily for 2 days, 2 tabs daily for 2 days, 1 tab daily for 2 days PO daily; 28 tabs 0RF 10 days famotidine 20 mg PO BEDTIME 28 tabs 0RF 28 days doxycycline hyclate 100 mg PO BID 14 tabs 0RF 7 days
[2025-05-26 11:28] VITALS: BP 104/66; PULSE 82; RESP 16; TEMP 36.7; O2SAT 98; BMI 41.0
--- OUTSIDE RECORDS SUMMARY | 2025-05-26 13:01 | XMS_ITS | Clinical Summary ---
Author Organization [address] [facility] Address [address] [place] [address] Phone Care Team Providers Care Starting Sheet Tank Operator Name Role Phone Leland Trujillo MD [...] AM EDT Office Visit Orthopedic Surgery - [address] [phone] Joe Diaz, AIDA Controlled type 2 diabetes with neuropathy ([facility] V24, [facility] V28) (Primary Dx); Lumbosacral radiculopathy; Arthritis of both feet; Dermatophytosis, nail from Last 3 Months Immunizations Immunization Administration Dates Next Due Moderna SARS-CoV-2 COVID-19, mRNA, LNP-S, preservative free 12/01/2020,11/03/2020 Medical History Medical History Date Comments Diabetes mellitus ([facility] V24, [facility] V28) DX:Diabetes mellitus (HCC) Heart attack ([facility] V24, [facility] V28) DX:Heart attack (HCC) Mixed [...] Care Team (Late st Contact Info) Description 06/20/2025 2:00 PM EST Office Visit Orthopedic Surgery - [place] [address] [place] [phone] Joe Diaz DPM [address] [place] [phone] Health Maintenance Due Date Last Done Comments [...] Annual BMP Blood Test (06/29/2021) Pathologist [facility]ly [facility], [facility] Annual BMP Blood Test abstracted us Historical [...] Blood Venous blood specimen / Unknown Result [facility] Provider LAB BLOOD ORDERABLES Rebeca l Result * Hepatitis C Screening (09/01/2020) Pathologist [facility] Hepatitis C Screening abstracted Result [facility] Provider HEALTH MAINTENANCE Final Result * Urine Albumin Creatinine Ratio (02/03/2020) Pathologist [facility], [facility] Urine Albumin Creatinine Ratio abstracted [facility] Provider HEALTH MAINTENANCE Final Result from Last 3 Months or Most Recently Relevant to Health Maintenance Insurance [facility] [employer] PL[employer] Care Teams Starting Sheet Tank Operator Relationship Specialty Start Date End Date Leland Trujillo MD [address] [place] [address] Dr Michelle MA PCP - General 05/09/22
== END 2025-05-26 11:46 | disposition home or self-care (01) ==
LOC: HO.HMCFM 11:23
PROVIDERS: PCP Family Medicine; Visit Provider Family Medicine
DX: R05.9 Cough, unspecified (principal)

== ENCOUNTER → 2025-05-26 11:22 | Outpatient (BNVA) | payer OTHER, SELFPAY | PROVIDERS: PCP Family Medicine; Visit Provider Family Medicine | DX: R05.3 Chronic cough (principal); K21.9 Gastro-esophageal reflux disease without esophagitis; Z79.899 Other long term (current) drug therapy | CPT/HCPCS: 99212 ==

== ENCOUNTER 2025-06-02 09:44 | Outpatient (REF) | payer OTHER, SELFPAY ==
--- NOTE | ~2025-06-02 | XR_ITS ---
EXAMINATION: XR CHEST CLINICAL INFORMATION: R05.9 - Cough, unspecified COMPARISON: April 11, 2025 TECHNIQUE: PA and lateral views FINDINGS: Pulmonary reticular pattern. No consolidation, pleural effusion or pneumothorax. No hyperinflation. Poor inspiration. Cardiomediastinal silhouette size is normal. Multilevel thoracic and lumbar spondylosis. Osteopenia versus osteoporosis. S-shaped curvature of the thoracic spine. Patient's large body habitus. XR/XR chest 2V IMPRESSION: Consider mild interstitial lung edema versus acute small airway inflammatory process. Electronically signed by: Fadi Sagastume MD 06/02/2025 10:05 AM KARLEY
--- OUTSIDE RECORDS SUMMARY | 2025-06-02 11:07 | XMS_ITS | Data Portability ---
Author Organization [place] - [facility], Allergy Address [address] [place] [phone] Assessment No assessment recorded. Plan of Treatment Reminders Order Date Submit Date Provider Last Modified By Organization Details Last Modified Time Details Appointments None recorded. Lab None recorded. 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 2023 024 [email or web address] 2 [facility] Ot[facility], [address] [facility], [facility], [place], [address], 4 12:21:10 Procedures None recorded. Surgeries None recorded. Imaging None recorded. Medication Orders None recorded. Patient TargetsNo targets recorded. Patient InstructionsNo instructions recorded. 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 - [facility] 09:13:57 Problem Notes None recorded. Procedures Surgical History Date Name Laterality Status Provider Name and Address Organization Details Recorded Time 01/20/2024 FFL_RE completed BERNARDA BELL MD 100 [facility] 100, [place], [address], [facility] - [facility] 01/20/2024 09:14:05 Imaging Results None recorded. Procedure [...] Updated DateTime 01/20/2024 182.88 cm 35.3 kg/m2 507230.02 g Kat Major [place] - [facility] 01/20/2024 09:04:31 Social History None recorded. Functional Status None recorded. Mental Status None recorded. Family History Nothing Reported. Medical History No medical history recorded. Past Encounters Encounter ID Performer Location Encounter Start Date Encounter Closed Date Diagnosis/Indication Diagnosis SNOMED-CT Code Diagnosis ICD10 Code Diagnosis IMO Codes Diagnosis Note [id number] BERNARDA BELL MD [facility] [address] [address] 01/20/2024 08:46:56 01/20/2024 09:20:43 Dysphagia 41590848 R13.10 Laryngosco py was normal. Mild. Recommend small bites and washing down with fluid and to call if it worsens. 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 BERNARDA BELL MD [address] [place] [address], [place], [address], [facility] - [facility] 01/20/2024 09:23:32
== END 2025-06-02 09:45 | disposition home or self-care (01) ==
LOC: HO.XRAY 09:44
PROVIDERS: PCP Family Medicine; Visit Provider Family Medicine
DX: R05.9 Cough, unspecified (principal)
CPT/HCPCS: 71046

== ENCOUNTER → 2025-06-02 09:45 | Outpatient (BNV) | payer OTHER, SELFPAY | PROVIDERS: PCP Family Medicine; Visit Provider Radiology Diagnostic Radiology | DX: R05.9 Cough, unspecified (principal) | CPT/HCPCS: 71046 ==

== ENCOUNTER 2025-06-05 08:45 | Outpatient (REF) | payer OTHER, SELFPAY ==
--- NOTE | ~2025-06-05 | US_ITS ---
CLINICAL HISTORY: N20.0 - Calculus of kidney US Renal Comparison: US/SR - US RENAL BI - 11/25/24 07:48 EDT Findings: Right kidney normal size and echotexture, 11.9 cm length. Left kidney normal size and echotexture, 12.6 cm length. No hydronephrosis of either kidney. Normal color Doppler IMPRESSION: 1. Unremarkable renal ultrasound. This document has been electronically signed by: Elmira Beck MD on 06/06/2025 08:36:06
--- OUTSIDE RECORDS SUMMARY | 2025-06-05 09:09 | XMS_ITS | Clinical Summary ---
Author Organization 175 [facility] Address 175 [place] [address] Phone Care Team Providers Care Weight Clerk Name Role Phone Leland Trujillo MD Primary [...] AM EDT Office Visit Orthopedic Surgery - [address] [address] Joe Diaz, AIDA Controlled type 2 diabetes with neuropathy ([facility] V24, [facility] V28) (Primary Dx); Lumbosacral radiculopathy; Arthritis of both feet; Dermatophytosis, nail from Last 3 Months Immunizations Immunization Administration Dates Next Due Moderna SARS-CoV-2 COVID-19, mRNA, LNP-S, preservative free 12/01/2020,11/03/2020 Medical History Medical History Date Comments Diabetes mellitus ([facility] V24, [facility] V28) DX:Diabetes mellitus (HCC) Heart attack ([facility] V24, [facility] V28) DX:Heart attack (HCC) Mixed hyperlipidemia DX:Mixed [...] PM EST Office Visit Orthopedic Surgery - [place] [address] [phone] Joe Diaz, AIDA [address] [address] Health Maintenance Due Date Last Done Comments [...] * Annual BMP Blood Test (06/29/2021) Pathologist [facility] Annual BMP Blood Test abstracted us Historical Provider HEALTH MAINTENANCE Final Result * Hemoglobin A1c (06/29/2021) Pathologist [facility] Hemoglobin A1C 0.0 % Comment:abstracted, no inter pretation Blood Venous blood specimen / Unknown us Historical Provider LAB BLOOD ORDERABLES Rebeca l Result * Lipid panel (06/29/2021) Pathologist [facility] LDL/HDL Ratio 0 Comment:abstracted, no inter pretation Triglycerides 0 mg/dL Comment:abstracted, no inter pretation Cholesterol 0 mg/dL Comment:abstracted, no inter pretation HDL 0 mg/dL Comment:abstracted, no inter pretation LDL Cholesterol 0.0 mg/dL Comment:abstracted, no inter pretation Blood Venous blood specimen / Unknown Result [facility] Provider LAB BLOOD ORDERABLES Rebeca l Result * Hepatitis C Screening (09/01/2020) Pathologist [facility] Hepatitis C Screening abstracted Result [facility] Provider HEALTH MAINTENANCE Final Result * Urine Albumin Creatinine Ratio (02/03/2020) Pathologist [facility] Urine Albumin Creatinine Ratio abstracted [facility] Provider HEALTH MAINTENANCE Final Result from Last 3 Months or Most Recently Relevant to Health Maintenance Insurance [facility] [place] [address] Care Teams Weight Clerk Relationship Specialty Start Date End Date Leland Trujillo MD [address] [place] [address] Dr Michelle [place] PCP - General 05/09/22
--- OUTSIDE RECORDS SUMMARY | 2025-06-05 09:09 | XMS_ITS | Data Portability ---
Author Organization [place] - [facility], Allergy Address [address] [place] [phone] Assessment No assessment recorded. Plan of Treatment Reminders Order Date Submit Date Provider Last Modified By Organization Details Last Modified Time Details Appointments None recorded. Lab None recorded. 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 2023 024 2 [facility] Otol[facility]olog [facility], [address] [facility], [facility], [place], [address], 4 12:21:10 Procedures None recorded. Surgeries None [...] and Address Organization Details Recorded Time Dysphagia 92809246 Active 024 BERNARDA Tellez MD 100 [facility],[place] [address], [place], [address] - [facility] 4 09:10:05 Benign neoplasm of soft tissue of head and/or neck 329309531 Active 024 BERNARDA Tellez MD 100 [facility] 100, [place], [address], [facility] - [facility] 09:13:57 Problem Notes None recorded. Procedures Surgical History Date Name Laterality Status Provider Name and Address Organization Details Recorded Time 01/20/2024 FFL_RE completed BERNARDA BELL MD 100 [facility] 100, [place], [address], [facility] - [facility] 01/20/2024 09:14:05 Imaging Results None recorded. [...] Updated DateTime 01/20/2024 182.88 cm 35.3 kg/m2 079456.02 g Kat Major [place] - [facility] 01/20/2024 09:04:31 Social History None recorded. Functional Status None recorded. Mental Status None recorded. Family History Nothing Reported. Medical History No medical history recorded. Past Encounters Encounter ID Performer Location Encounter Start Date Encounter Closed Date Diagnosis/Indication Diagnosis SNOMED-CT Code Diagnosis ICD10 Code Diagnosis IMO Codes Diagnosis Note [id number] BERNARDA BELL MD [facility] of [address] [address] 01/20/2024 08:46:56 01/20/2024 09:20:43 Dysphagia 71080299 R13.10 Laryngosco py was normal. Mild. Recommend small bites and washing down with fluid and to call if it worsens. 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 - HEALTH NET PLAN (MEDICAID HMO) Mina Lopes [id number] Mina Lopes Notes Date Note Type Note [...] 3 years ago. BERNARDA BELL MD [address] [place] [address], [place], [address], [facility] - [facility] 01/20/2024 09:23:32
[2025-06-05 09:21] LABS: MANUAL DIFF FLAG NO
[2025-06-05 09:26] LABS: Hematocrit 40.3 % (42.0-52.0); Hemoglobin 13.3 g/dl (14.0-18.0); Imm Gran Abs Auto 0.06 X10*3/uL (0.00-0.03); Imm Gran Pct Auto 0.7 % (0.0-0.4); Lymphocytes Absolute Auto 2.2 X10*3/uL (1.2-4.9); Mean Corpuscular HGB Conc 33.0 g/dl (31.0-36.0); Mean Corpuscular Hemoglobin 28.9 pg (27.0-33.0); Mean Corpuscular Volume 87.6 fL (80.0-98.0); NRBC Abs Auto 0.000 X10*3/uL (0.0-0.012); NRBC Pct Auto 0.0 /100WBC (0.0-0.2); Platelet Count 175 X10*3/uL (160-400); Red Blood Count 4.60 X10*6/uL (4.60-5.80); White Blood Count 8.2 X10*3/uL (4.8-10.8)
[2025-06-05 09:57] LABS: Alanine Aminotransferase 36 U/L (0-40); Albumin Level 4.2 g/dL (3.5-5.0); Alkaline Phosphatase 83 U/L (39-117); Anion Gap 10 (12-20); Aspartate Amino Transferase 31 U/L (5-37); Blood Urea Nitrogen 18 mg/dL (9-16); Calcium 9.2 mg/dL (8.4-10.2); Carbon Dioxide 21 mmol/L (22-29); Chloride 113 mmol/L (96-108); Estimated Glomerular Filt Rate > 60; Potassium 4.2 mmol/L (3.3-5.1); Sodium 140 mmol/L (135-145); Total Protein 6.9 g/dL (6.5-8.0)
[2025-06-05 10:04] LABS: NT Pro B Type Natriuretic Pept 18.8 pg/mL (<300)
== END 2025-06-05 08:46 | disposition home or self-care (01) ==
LOC: HO.US 08:45
PROVIDERS: Absent Provider Family Medicine; PCP Family Medicine; Visit Provider Urology
DX: Z00.00 Encounter for general adult medical examination without abnormal findings (principal); N20.0 Calculus of kidney; R05.9 Cough, unspecified; I50.9 Heart failure, unspecified
CPT/HCPCS: 36415; 76775; 80053; 83880; 85025

== ENCOUNTER → 2025-06-05 08:50 | Outpatient (BNV) | payer OTHER, SELFPAY | PROVIDERS: Absent Provider Family Medicine; PCP Family Medicine; Visit Provider Radiology Diagnostic Radiology | DX: N20.0 Calculus of kidney (principal) | CPT/HCPCS: 76775 ==

== ENCOUNTER 2025-06-12 09:31 | Outpatient (AMB) | payer OTHER, SELFPAY ==
--- NOTE | 2025-06-12 09:39 | MHC.OFFVIS ---
Vital Signs 06/12/25 09:40 Height 6 ft Weight 302 lb 0.533 oz BMI 41.0 BP 110/62 Blood Pressure Location Lt brachial Position Sitting Pulse 82 Pulse Source Pulse Oximeter Pulse Oximetry (%) 93 Oxygen Delivery Method Room Air Intake Visit Reasons: Somnolence Intake Note: pt is here for follow up and states he is having an issue with coughing that produces some phelgm at times but at times he coughs so hard it gives him a headache, this happens at all times if the day and nitght. as far as cpap he is using it everynight, he does roll over and loosen straps at times. Medical Laboratory Technician Required: No Allergies erythromycin base Allergy (Mild, Verified 06/12/25 10:02) Confusion clonidine Adverse Reaction (Severe, Verified 06/12/25 10:02) Vomiting Medication List - Last Reconciled 06/12/25 by Jessica Wylie MD amitriptyline 50 mg PO BEDTIME amlodipine 10 mg PO DAILY 90 days aripiprazole 10 mg PO DAILY aspirin (Adult Low Dose Aspirin) 81 mg PO DAILY 90 days bupropion HCl XL 150 mg PO DAILY bupropion HCl XL 300 mg PO DAILY 90 days carvedilol 25 mg PO Q12H 90 days cholecalciferol (vitamin D3) 25 mcg PO DAILY 90 days cyanocobalamin (vitamin B-12) 1,000 mcg PO DAILY 90 days duloxetine 30 mg PO DAILY 90 days escitalopram oxalate 5 mg PO DAILY famotidine 20 mg PO BEDTIME 28 days gabapentin 300 mg PO TID 30 days heparin (porcine) 10,000 units (2 mL) IVPUSH PROTOCOL BOLUS PRN hydroxyzine HCl 25 mg PO TID@0900,1730,2100 hydroxyzine pamoate 50 mg PO BEDTIME indomethacin 25 mg PO BID 30 days ipratropium-albuterol 20-100 mcg/actuation (Combivent Respimat) 1 puff inhalation Q6H PRN isosorbide mononitrate ER 30 mg PO BEDTIME lisinopril 5 mg PO DAILY loratadine 10 mg PO BEDTIME 90 days meclizine 25 mg PO DAILY metformin 750 mg PO BEDTIME metformin 500 mg PO DAILY omeprazole 20 mg PO BID pramipexole 0.5 mg PO BEDTIME 30 days pyridoxine (vitamin B6) 50 mg PO DAILY 90 days rosuvastatin 40 mg PO DAILY 90 days tamsulosin 0.4 mg PO BEDTIME 90 days topiramate 200 mg (2 x 100 mg) PO BID 90 days umeclidinium-vilanterol 62.5-25 mcg/actuation (Anoro Ellipta) 1 inh inhalation Q24H 30 days Do you need a note to return to daycare/school/sports/work: No HPI HPI Somnolence: Details: Mina is 50 years old gentleman with morbid obesity, obstructive sleep apnea, and mild bronchial asthma. He does not smoke anymore since he has moved to [place]. He is coming for his routine follow-up however he has an active problem of ongoing cough for a few weeks. The cough is mostly dry and also wakes him up at night. He had a chest x-ray on 06/02/2025 ordered by his primary care physician Dr. Garrett, which was negative for any infiltrates. He has been treated with a course of doxycycline and also prednisone, without much improvement. As far as CPAP is concerned he does use it every night, but not more than 4 hours per night, he say is that is all the hours that he sleeps. He is not using water in the humidification tank. He say is that he sleeps fairly well and denies any. Daytime sleepiness Weight remains unchanged. [facility] Medical History Cough BMI 40.0-44.9, adult Esophageal abnormality Constipation Abnormal lung sounds Hiatal hernia Powers esophagus determined by biopsy Obesity (BMI 30-39.9) Difficulty swallowing Screening for prostate cancer Screening for colon cancer Adult general medical exam Laboratory exam ordered as part of routine general medical examination Imbalance Left-sided chest wall pain Dizziness Fatigue Unsteady gait Yeast infection of the skin Abnormal CT lung screening Headache Puncture wound of scalp Left knee pain Sacroiliitis Osteoarthritis of knee Infection of skin Exposure to potential infection Urinary hesitancy Decreased visual acuity Low vitamin B12 level Morbid obesity Elevated fasting glucose Chest discomfort COPD (chronic obstructive pulmonary disease) KELSY on CPAP Torn rotator cuff Diabetes High cholesterol Hypertension Surgical History History of esophagogastroduodenoscopy (EGD) Hx of colonoscopy Stented coronary artery History of carpal tunnel surgery Family History Other Mental health disorder Substance abuse Social History Household Members Other:: roommate Housing: House Are you a primary weekend caregiver to a significant other at home: No Do you presently have visiting nurse or other home services: No Alcohol intake: never Patient Tobacco Use Status: Former Tobacco user e-Cigarette/Vaping Use: Never Used Second Hand Smoke Exposure: No service: No Current occupational status: unemployed Current occupational exposures/hazards: No Cognitive needs: Yes (CANE) Hearing needs: No Vision needs: Yes Review of Systems Const All systems reviewed & are unremarkable except as noted in HPI and below Eyes Reports no additional complaints ENT Reports no additional complaints Card Denies chest pain, Denies irregular heart rhythm and Denies leg edema Resp Reports as per HPI GI Reports heartburn (GERD symptoms being treated) Reports difficulty urinating and Reports nocturia Musc Reports numbness (Lower extremity) and Reports other (Carpal tunnel syndrome both wrists) Skin/Breast Reports dry skin Neuro Reports numbness (Lower extremity) and Reports restless legs Psych Reports anxiety and Reports depression Endo Reports other (Being treated for diabetes mellitus) Ludin/Lymph Reports no additional complaints Aller/Immun Reports no additional complaints Physical Exam Vital Signs: Last Vital Signs Pulse 82 06/12/25 09:40 BP 110/62 06/12/25 09:40 Pulse Ox 93 06/12/25 09:40 Oxygen Delivery Method Room Air 06/12/25 09:40 BMI result Body Mass Index 41.0 This gentleman is grossly obese, with a round face, and a fat neck. Const General: comfortable, no acute distress, alert and awake Orientation/consciousness: patient oriented x3 HEENT Head: Yes normal to inspection General nose exam: No nasal polyps present and No nasal discharge present Face and sinus: Yes sinuses nontender Mouth: oropharynx normal (Oropharynx is crowded, Mallampati class 4) Throat: Yes posterior oropharynx normal Eyes General: appearance normal, both eyes and all related structures Neck Neck: Yes normal visual inspection, Yes no lymphadenopathy, Yes trachea midline and Yes no JVD Thyroid: Thyroid normal Chest Chest palpation & inspection: normal inspection of the chest, normal palpation of entire chest wall and no tenderness Resp Other: Percussion note not perceptible because of the thick and obese chest wall. Breath sounds are generally distant. especially over the basilar areas No audible wheezes or rhonchi, or crepitations. Cardio Palpation: PMI not normal (Not palpable) Rate: regular rate Rhythm: regular rhythm Heart sounds: no gallops and no murmurs GI Palpation (GI): Soft to palpation, Tenderness to palpation present (GI), No hepatosplenomegaly present, Palpable mass present and Other GI palpation findings present (Abdomen is grossly obese and slightly protuberant) Auscultation: normal bowel sounds Back/Spine/Pelvis Thoracic/Lumbar Spine: thoracic and lumbar spine normal to inspection and thoraco-lumbar ROM limited Skin General skin exam: no rashes or lesions noted and dry skin Neuro General: patient oriented x3 and no focal motor deficits Cranial nerves: Yes CN's II-XII intact bilaterally Extrem General: Yes normal to inspection, Yes no clubbing, cyanosis or edema and Yes no calf tenderness Psych Appearance: grossly normal and well kempt Speech and movement: Normal speech and movement present Results Reviewed Results Reviewed: Compliance report for the last 30 nights shows that he has used 30/30 nights, 100%. Average usage per night 4 hours 21 minutes. There is significant air leakage and residual AHI 5.0 Chest x-ray of 06/02. No infiltrates noted. There is slight prominence of interstitial markings Assessment & Plan Assessment & Plan (1) Obesity (BMI 30-39.9): Comment: THIS IS A CHRONIC PROBLEM IN HIS CASE, PATIENT IS FULLY AWARE, HE TRIES TO LIMIT CALORIES INTAKE. It is BECAUSE OF LOW LEVEL OF ACTIVITY THAT HE CANNOT LOSE WEIGHT. Code(s): E66.9 - Obesity, unspecified Category: Medical Plan: Again talked about his weight, he needs to become more active and also limit calories intake. (2) COPD (chronic obstructive pulmonary disease): Comment: PATIENT HAS BEEN TREATED A CASE OF CHRONIC OBSTRUCTIVE PULMONARY DISEASE/BRONCHIAL ASTHMA. I EXPLAINED TO HIM THE RESULTS OF PULMONARY FUNCTION TEST BEING ALMOST NORMAL. HE DOES NOT BELIEVE IT AND SAYS ,IF HE DOES NOT USE COMBIVENT RESPIMAT HE GETS MORE COUGH AND SHORTNESS OF BREATH. HIS COPD WHICH IS MILD IS UNDER CONTROL BUT HE IS HAVING ONGOING COUGH FOR THE LAST FEW WEEKS WHICH IS NOT COMING UNDER CONTROL. HE HAS RECEIVED COURSE OF DOXYCYCLINE AND PREDNISONE WITHOUT MUCH IMPROVEMENT. I THINK IT IS MOSTLY DUE TO DRY AIR. Code(s): J44.9 - Chronic obstructive pulmonary disease, unspecified Category: Medical Plan: CONTINUE TO USE ANORO ELLIPTA 1 INHALATION DAILY. USE COMBIVENT RESPIMAT 1 INHALATION Q.6 HOURS PRN ( TRY NOT TO USE MORE THAN 1 OR 2 TIMES A DAY) THE MAIN PROBLEM AT THIS TIME IS ONGOING COUGH WHICH IS MOSTLY DRY I THINK MOST OF THE COUGH IS DUE TO DRYNESS. I WOULD ADVISE HIM TO USE A VAPORIZER IN THE BEDROOM. ALSO ADVISED THAT HE SHOULD USE DISTILLED WATER IN THE HUMIDIFICATION TANK EVERY NIGHT. MUCINEX 600 MG B.I.D. IS ORDERED, FOR SYMPTOMATIC RELIEF OF COUGH. (3) KELSY on CPAP: Comment: PATIENT DOES HAVE OBSTRUCTIVE SLEEP APNEA FOR MANY YEARS, HE HAS BEEN USING CPAP REGULARLY, PRESSURE 14 CM, FULLFACE MASK. HE BENEFITS FROM THE USE OF CPAP. HE DOES HAVE SIGNIFICANT AIR LEAK, AND HE IS NOT USING HUMIDIFICATION Code(s): G47.33 - Obstructive sleep apnea (adult) (pediatric); Z99.89 - Dependence on other enabling machines and devices Category: Medical Plan: I STRESSED THAT HE HAS TO USE DISTILLED WATER IN THE HUMIDIFICATION TANK, EVERY NIGHT AND ALSO USE A VAPORIZER IN THE BEDROOM. Coding Level of Care Code Est Pt Level 3 (96856) Diagnoses Obesity (BMI 30-39.9) E66.9 COPD (chronic obstructive pulmonary disease) J44.9 KELSY on CPAP G47.33; Z99.89
[2025-06-12 09:40] VITALS: BP 110/62; PULSE 82; O2SAT 93; BMI 41.0
== END 2025-06-12 10:15 | disposition home or self-care (01) ==
PROVIDERS: PCP Internal Medicine; Visit Provider Internal Medicine
DX: E66.9 Obesity, unspecified (principal); J44.9 Chronic obstructive pulmonary disease, unspecified; G47.33 Obstructive sleep apnea (adult) (pediatric); Z99.89 Dependence on other enabling machines and devices
CPT/HCPCS: 99213

== ENCOUNTER → 2025-06-12 09:31 | Outpatient (BNVA) | payer OTHER, SELFPAY | PROVIDERS: PCP Internal Medicine; Visit Provider Internal Medicine | DX: J44.9 Chronic obstructive pulmonary disease, unspecified (principal); E66.9 Obesity, unspecified; G47.33 Obstructive sleep apnea (adult) (pediatric); Z99.89 Dependence on other enabling machines and devices | CPT/HCPCS: 99212 ==

== ENCOUNTER 2025-06-29 11:54 | Outpatient (AMB) | payer OTHER, SELFPAY ==
--- NOTE | 2025-06-29 11:56 | MHC.OFFVIS ---
Intake Visit Reasons: 3 Months chavez Allergies erythromycin base Allergy (Mild, Verified 06/29/25 12:05) Confusion clonidine Adverse Reaction (Severe, Verified 06/29/25 12:05) Vomiting Medication List - Last Reconciled 06/29/25 by Fifi Singh CNP amitriptyline 50 mg PO BEDTIME amlodipine 10 mg PO DAILY 90 days aripiprazole 10 mg PO DAILY aspirin (Adult Low Dose Aspirin) 81 mg PO DAILY 90 days bupropion HCl XL 150 mg PO DAILY bupropion HCl XL 300 mg PO DAILY 90 days carvedilol 25 mg PO Q12H 90 days cholecalciferol (vitamin D3) 25 mcg PO DAILY 90 days cyanocobalamin (vitamin B-12) 1,000 mcg PO DAILY 90 days duloxetine 30 mg PO DAILY 90 days escitalopram oxalate 5 mg PO DAILY gabapentin 300 mg PO TID 30 days heparin (porcine) 10,000 units (2 mL) IVPUSH PROTOCOL BOLUS PRN hydroxyzine HCl 25 mg PO TID@0900,1730,2100 hydroxyzine pamoate 50 mg PO BEDTIME indomethacin 25 mg PO BID 30 days ipratropium-albuterol 20-100 mcg/actuation (Combivent Respimat) 1 puff inhalation Q6H PRN isosorbide mononitrate ER 30 mg PO DAILY lisinopril 5 mg PO DAILY loratadine 10 mg PO BEDTIME 90 days metformin 750 mg PO BEDTIME metformin 500 mg PO DAILY omeprazole 20 mg PO BID pramipexole 0.5 mg PO BEDTIME 30 days pyridoxine (vitamin B6) 50 mg PO DAILY 90 days rosuvastatin 40 mg PO DAILY 90 days tamsulosin 0.4 mg PO BEDTIME 90 days topiramate 200 mg (2 x 100 mg) PO BID 90 days umeclidinium-vilanterol 62.5-25 mcg/actuation (Anoro Ellipta) 1 inh inhalation Q24H 30 days HPI Comments Details: Headaches were better with increased dose of topiramate. Meclizine did not help and he stopped medication. He was recently more bothered by back pain which he sees pain management for and was recommended PNS, but says he cannot proceed with this yet because of his dog's behavior. Walking with cane. He was also dealing with cough for last few months which he saw PCP and pulmonary for, and had upcoming appointment with cardiology. Sleep was up and down, using CPAP. Following up with ENT in [place] yearly. Previously was having mild headaches almost every day with pain all over head. Headaches were associated with photophobia, sonophobia, and dizziness. Migraines 1-2x/month, lasting all day with photosensitivity. He has migraines since the age of 9. Migraines have increased over the years, occurring 2-3x/week, lasting all day with nausea and photophobia. Also gets quick stabbing pains for 1 sec off and on over left eyebrow. He uses indomethacin when necessary for the headache. No family history of migraine. He also has obstructive sleep apnea and wears a CPAP. Hands are getting numb, helped by braces at night. Has episodes of staggering and walking like a drunk if walks long distances, but after a few steps it can go away. Using a cane. [facility] Medical History Cough BMI 40.0-44.9, adult Esophageal abnormality Constipation Abnormal lung sounds Hiatal hernia Powers esophagus determined by biopsy Obesity (BMI 30-39.9) Difficulty swallowing Screening for prostate cancer Screening for colon cancer Adult general medical exam Laboratory exam ordered as part of routine general medical examination Imbalance Left-sided chest wall pain Dizziness Fatigue Unsteady gait Yeast infection of the skin Abnormal CT lung screening Headache Puncture wound of scalp Left knee pain Sacroiliitis Osteoarthritis of knee Infection of skin Exposure to potential infection Urinary hesitancy Decreased visual acuity Low vitamin B12 level Morbid obesity Elevated fasting glucose Chest discomfort COPD (chronic obstructive pulmonary disease) KELSY on CPAP Torn rotator cuff Diabetes High cholesterol Hypertension Surgical History History of esophagogastroduodenoscopy (EGD) Hx of colonoscopy Stented coronary artery History of carpal tunnel surgery Family History Other Mental health disorder Substance abuse Social History Household Members Other:: roommate Housing: House Are you a primary client care representative to a significant other at home: No Do you presently have visiting nurse or other home services: No Alcohol intake: never Patient Tobacco Use Status: Former Tobacco user e-Cigarette/Vaping Use: Never Used Second Hand Smoke Exposure: No service: No Current occupational status: unemployed Current occupational exposures/hazards: No Cognitive needs: Yes (CANE) Hearing needs: No Vision needs: Yes Review of Systems Const Denies chills, Denies daytime sleepiness, Reports difficulty sleeping, Reports fatigue, Denies fever(s), Denies frequent falls, Reports headache(s), Denies increased appetite, Denies poor appetite, Denies snoring, Denies weakness, Denies weight gain and Denies weight loss Eyes Denies loss of vision ENT Denies vertigo, Reports dizziness, Reports headache(s) and Denies neck pain Card Denies chest pain at rest, Denies chest pain with activity, Denies syncope, Denies leg edema, Denies palpitations, Denies dyspnea and Denies dyspnea on exertion Resp Reports cough, Denies dyspnea, Denies dyspnea on exertion and Denies snoring GI Denies abdominal pain, Denies constipation, Denies heartburn, Denies diarrhea and Denies nausea Denies urinary frequency, Denies urinary incontinence and Denies urinary urgency Musc Denies abnormal gait, Denies back pain, Denies myalgias, Denies arthralgias, Denies neck pain, Denies numbness and Denies tingling Neuro Denies abnormal gait, Denies vertigo, Reports dizziness, Denies syncope, Denies frequent falls, Reports headache(s), Denies lack of coordination, Denies loss of vision, Reports memory loss, Denies numbness, Denies Other visual disturbances, Denies restless legs, Denies seizure-like activity, Denies tingling, Denies paresthesias, Reports tremor(s) and Denies weakness Psych Reports anxiety, Reports depression, Denies auditory hallucinations, Reports memory loss and Denies visual hallucinations Endo Reports fatigue and Denies palpitations Physical Exam Const Other: General Appearance:? normal, in no acute distress. Heart:? S1, S2 normal, no murmurs. Lungs:? clear anteriorly and posteriorly. Musculoskeletal:? normal. Extremities:? no edema. Psych:? alert, oriented, cognitive function intact, cooperative with exam. Neuro Other: Abnormal Neurological Findings:?Walking with cane. Mental Status: alert and oriented X 3. Normal attention, orientation, memory, and affect. Cranial Nerves: Pupils are equal, round, and reactive to light. External ocular muscles are intact. Visual fletcher are full, no ptosis. Face is symmetrical, no facial weakness or droop. Facial sensations are normal. Tongue protrudes in midline. Palate elevates symmetrically. Shoulder shrugging is normal Motor Examination: Normal muscle tone, bulk and strength. No atrophy or fasciculations. No drift of the extended upper extremities. DTR 2+. Plantars are flexor. Sensory Exam: Normal light touch, temperature, pinprick, vibration, and joint-position sensations. Rhomberg sign is absent. Coordination: No ataxia. No titubation. Gait Exam: With cane. Cerebellar Signs: [id number]-ch-fvdx is okay. Extrapyramidal System: No tremor, rigidity with normal facial expressions. No bradykinesia. No bradyphrenia. Normal arm swing and posture. No propulsion or retropulsion. Speech: Normal. Results Reviewed Results Reviewed: MRI Orbits, Face, Neck W&WO contrast at [facility] [place] 01/13/2025: 1. Stable oval circumscribed T1 isointense, T2 hyperintense, nonenhancing lesion measuring 1.6 x 1.1 x 1.3 cm centered within the left pterygopalatine fossa. 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 Differential would include a salivary rest cystic tumor such as Warthin's tumor or pleomorphic adenoma. It has benign features and is stable without growth. 2. No abnormal lymphadenopathy or additional head/neck mass. No abnormal enhancement. MRI LS Spine at [facility] [place] 01/04/2025: 1. No discitis or osteomyelitis by imaging. No drainable abscess. 2. Multilevel degenerative disc changes, with multifocal spinal stenosis. 3. Multifocal facet arthropathy. Mild enhancement includes left L5-S1 facet joint and may reflect mild inflammatory arthropathy at this time. 12/09/22 NCV/EMG UE Mild to moderate right Carpal tunnel syndrome and a mild Carpal tunnel syndrome on the left. Compress at the elbow bilaterally right worse than left. Normal EMG in the right C5-T1 innervated muscles. MRI September 2023: The cerebellum is normal in appearance. Chronic lacunar infarct in the left centrum semiovale. Incidental note of a 1.5 x 1.2 cm ovoid lesion in the left pterygomaxillary fissure, for which differential considerations include a pleomorphic adenoma versus a cystic nerve sheath tumor Assessment & Plan Assessment & Plan (1) Migraines: Code(s): G43.909 - Migraine, unspecified, not intractable, without status migrainosus Category: Medical Qualifiers: Migraine type: unspecified Status migrainosus presence: without status migrainosus Intractability: not intractable Qualified Code(s): G43.909 - Migraine, unspecified, not intractable, without status migrainosus Plan: Continue topiramate 100mg 2 tablet in the morning and 2 tablets at bedtime. Continue amitriptyline 50mg 1 tablet at bedtime. Meclizine did not help and medication was stopped. Follow up in 6 months or sooner as needed. (2) KELSY on CPAP: Comment: PATIENT DOES HAVE OBSTRUCTIVE SLEEP APNEA FOR MANY YEARS, HE HAS BEEN USING CPAP REGULARLY, PRESSURE 14 CM, FULLFACE MASK. HE BENEFITS FROM THE USE OF CPAP. HE DOES HAVE SIGNIFICANT AIR LEAK, AND HE IS NOT USING HUMIDIFICATION Code(s): G47.33 - Obstructive sleep apnea (adult) (pediatric); Z99.89 - Dependence on other enabling machines and devices Category: Medical (3) Restless leg syndrome: Comment: RESTLESS LEGS MOST LIKELY SECONDARY TO PERIPHERAL NEUROPATHY, PATIENT IS BEING TREATED WITH GABAPENTIN Code(s): G25.81 - Restless legs syndrome Category: Medical (4) Carpal tunnel syndrome: Code(s): G56.00 - Carpal tunnel syndrome, unspecified upper limb Category: Medical Qualifiers: Laterality: bilateral Qualified Code(s): G56.03 - Carpal tunnel syndrome, bilateral upper limbs Plan Meds tried: topiramate, amitriptyline Coding Level of Care Code Est Pt Level 4 (57059) Diagnoses Migraine without status migrainosus, not intractable, unspecified migraine type G43.909 Migraine type: unspecified Status migrainosus presence: without status migrainosus Intractability: not intractable KELSY on CPAP G47.33; Z99.89 Restless leg syndrome G25.81 Bilateral carpal tunnel syndrome G56.03 Laterality: bilateral
== END 2025-06-29 12:17 | disposition home or self-care (01) ==
LOC: HO.HSM 11:54
PROVIDERS: PCP Family Medicine; Visit Provider Registered Nurse
DX: G43.909 Migraine, unspecified, not intractable, without status migrainosus (principal); G47.33 Obstructive sleep apnea (adult) (pediatric); Z99.89 Dependence on other enabling machines and devices; G25.81 Restless legs syndrome; G56.03 Carpal tunnel syndrome, bilateral upper limbs
CPT/HCPCS: 99214

== ENCOUNTER → 2025-06-29 11:54 | Outpatient (BNVA) | payer OTHER, SELFPAY | PROVIDERS: PCP Family Medicine; Visit Provider Registered Nurse | DX: G43.909 Migraine, unspecified, not intractable, without status migrainosus (principal); G47.33 Obstructive sleep apnea (adult) (pediatric); G25.81 Restless legs syndrome; G56.03 Carpal tunnel syndrome, bilateral upper limbs; Z99.89 Dependence on other enabling machines and devices; Z79.899 Other long term (current) drug therapy | CPT/HCPCS: 99212 ==

== ENCOUNTER 2025-07-04 14:54 | Outpatient (AMB) | payer OTHER, SELFPAY ==
--- NOTE | 2025-07-04 14:58 | A.OFFVIS_ITS ---
Vital Signs 07/04/25 14:59 Height 6 ft Weight 297 lb 9.985 oz BMI 40.4 BP 108/68 Blood Pressure Location Lt brachial Position Sitting Pulse 83 Intake Visit Reasons: [id number] up Intake Note: [facility] follow-up c/o cough since December Gear Grinder Required: No Allergies erythromycin base Allergy (Mild, Verified 06/29/25 12:05) Confusion clonidine Adverse Reaction (Severe, Verified 06/29/25 12:05) Vomiting Medication List - Last Reconciled 07/04/25 by Pk Ash MD amitriptyline 50 mg PO BEDTIME amlodipine 10 mg PO DAILY 90 days aripiprazole 10 mg PO DAILY aspirin (Adult Low Dose Aspirin) 81 mg PO DAILY 90 days bupropion HCl XL 150 mg PO DAILY bupropion HCl XL 300 mg PO DAILY 90 days carvedilol 25 mg PO Q12H 90 days cholecalciferol (vitamin D3) 25 mcg PO DAILY 90 days cyanocobalamin (vitamin B-12) 1,000 mcg PO DAILY 90 days duloxetine 30 mg PO DAILY 90 days escitalopram oxalate 5 mg PO DAILY gabapentin 300 mg PO TID 30 days hydroxyzine HCl 25 mg PO TID@0900,1730,2100 hydroxyzine pamoate 50 mg PO BEDTIME indomethacin 25 mg PO BID 30 days ipratropium-albuterol 20-100 mcg/actuation (Combivent Respimat) 1 puff inhalation Q6H PRN isosorbide mononitrate ER 30 mg PO DAILY lisinopril 5 mg PO DAILY loratadine 10 mg PO BEDTIME 90 days metformin 750 mg PO BEDTIME metformin 500 mg PO DAILY omeprazole 20 mg PO BID pramipexole 0.5 mg PO BEDTIME 30 days pyridoxine (vitamin B6) 50 mg PO DAILY 90 days rosuvastatin 40 mg PO DAILY 90 days tamsulosin 0.4 mg PO BEDTIME 90 days topiramate 200 mg (2 x 100 mg) PO BID 90 days umeclidinium-vilanterol 62.5-25 mcg/actuation (Anoro Ellipta) 1 inh inhalation Q24H 30 days HPI Comments Details: Mina comes for follow-up after March hospitalization with recurrent chest pain syndrome. It was labeled unstable angina subsequently transferred to [facility] where he underwent a cardiac catheterization which showed patent paroxysmal LAD stent with nonobstructive disease otherwise. He complains of continued intermittent symptoms chest pain difficulty swallowing shortness of breath on exertion. His complaining of constant cough which she is not able to figure out. He was recently started lisinopril therapy. He said however the cough preceded lisinopril therapy. [facility] Medical History Cough BMI 40.0-44.9, adult Esophageal abnormality Constipation Abnormal lung sounds Hiatal hernia Powers esophagus determined by biopsy Obesity (BMI 30-39.9) Difficulty swallowing Screening for prostate cancer Screening for colon cancer Adult general medical exam Laboratory exam ordered as part of routine general medical examination Imbalance Left-sided chest wall pain Dizziness Fatigue Unsteady gait Yeast infection of the skin Abnormal CT lung screening Headache Puncture wound of scalp Left knee pain Sacroiliitis Osteoarthritis of knee Infection of skin Exposure to potential infection Urinary hesitancy Decreased visual acuity Low vitamin B12 level Morbid obesity Elevated fasting glucose Chest discomfort COPD (chronic obstructive pulmonary disease) KELSY on CPAP Torn rotator cuff Diabetes High cholesterol Hypertension Surgical History History of esophagogastroduodenoscopy (EGD) Hx of colonoscopy Stented coronary artery History of carpal tunnel surgery Family History Other Mental health disorder Substance abuse Social History Household Members Other:: roommate Housing: House Are you a primary home care nurse to a significant other at home: No Do you presently have visiting nurse or other home services: No Alcohol intake: never Patient Tobacco Use Status: Former Tobacco user e-Cigarette/Vaping Use: Never Used Second Hand Smoke Exposure: No service: No Current occupational status: unemployed Current occupational exposures/hazards: No Cognitive needs: Yes (CANE) Hearing needs: No Vision needs: Yes Review of Systems Const Denies chills, Denies fatigue, Denies fever(s), Denies frequent falls, Denies weakness, Denies weight gain and Denies weight loss ENT Denies dizziness Card Denies chest pain, Denies leg edema, Denies lightheadedness, Denies palpitations, Denies dyspnea and Denies dyspnea on exertion Resp Denies cough, Denies dyspnea and Denies dyspnea on exertion GI Denies hematochezia Musc Denies abnormal gait, Denies muscle weakness, Denies numbness, Denies radiating pain into limb and Denies tingling Neuro Denies abnormal gait, Denies dizziness, Denies frequent falls, Denies numbness, Denies tingling and Denies weakness Endo Denies fatigue and Denies palpitations Physical Exam Vital Signs: Last Vital Signs Pulse 83 07/04/25 14:59 BP 108/68 07/04/25 14:59 BMI result Body Mass Index 40.4 Const General: comfortable and no acute distress Orientation/consciousness: patient oriented x3 Neck Neck: Yes normal visual inspection Resp Effort & Inspection: normal respiratory effort Auscultation: clear to auscultation bilaterally, no crackles, no rales, no rhonchi and no wheezes Cardio Jugular venous distension: no JVD Rate: regular rate Rhythm: regular rhythm Heart sounds: S1 normal heart sound present, S2 normal heart sound present, no murmurs and no rubs Neuro General: patient oriented x3 Extrem General: Yes normal to inspection Psych Appearance: grossly normal Mental Status: mental status grossly normal Speech and movement: Normal speech and movement present Assessment & Plan Assessment & Plan (1) Coronary artery disease: Code(s): I25.10 - Atherosclerotic heart disease of [place] coronary artery without angina pectoris Category: Medical Qualifiers: Coronary Disease-Associated Artery/Lesion type: [place] artery [place] vs. transplanted heart: [place] heart Associated angina: without angina Qualified Code(s): I25.10 - Atherosclerotic heart disease of [place] coronary artery without angina pectoris Plan: Patient has CAD with chest pain syndrome March with patent stent and nonobstructive coronary disease. Unlikely to be cardiac in origin at this point time. Recommend to continue low-dose aspirin therapy. Continue high-intensity statin therapy with target goal LDL less than 60 mg/dL. Encouraged to continue to participate in physical activity and weight loss program and aggressive blood pressure control. He understands and agrees. (2) Hypertension: Code(s): I10 - Essential (primary) hypertension Category: Medical Qualifiers: Hypertension type: primary hypertension Qualified Code(s): I10 - Essential (primary) hypertension Plan: Hypertension which is currently well optimized advised to monitor blood pressure at home maintain a log. Goal blood pressure less than 130/84. Currently well optimized. Importance of good blood pressure control was discussed. Low-salt diet was discussed. See below for lisinopril therapy. Continue aggressive diabetes management goal hemoglobin A1c less than 7%. (3) Cough: Code(s): R05.9 - Cough, unspecified Category: Medical Plan: Cough without any obvious etiology. This does not appear to be cardiac in origin this was discussed with him. Continue pulmonary follow up and further workup. Question in his lisinopril was started recently I do not see indication for it. Would discontinue lisinopril therapy see doses will help his cough. Continue follow with Pulmonary. If blood pressure remains elevated can switch to angiotensin receptor keaton which is less likely to cause cough. Will follow up in the clinic in 1 year's time, sooner PRN. Thank you for allowing me to partake in his care Medications: Discontinued lisinopril Discontinued Reason: Doctor's Order 5 mg PO DAILY 90 tabs 3RF Coding Level of Care Code Est Pt Level 4 (06575) Diagnoses Coronary artery disease involving [place] coronary artery of [place] heart without angina pectoris I25.10 Coronary Disease-Associated Artery/Lesion type: [place] artery [place] vs. transplanted heart: [place] heart Associated angina: without angina Primary hypertension I10 Hypertension type: primary hypertension Cough R05.9
[2025-07-04 14:59] VITALS: BP 108/68; PULSE 83; BMI 40.4
--- OUTSIDE RECORDS SUMMARY | 2025-07-04 21:07 | XMS_ITS | Data Portability ---
Author Organization [place] - [facility], Allergy Address [address] [place] [id number] Assessment No assessment recorded. Plan of Treatment Reminders Order Date Submit Date Provider Last Modified By Organization Details Last Modified Time Details Appointments None recorded. Lab None recorded. 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 2023 024 [id number] 2 [facility], [address] [facility], [facility], [place], [address], 4 12:21:10 Procedures None recorded. Surgeries None [...] and Address Organization Details Recorded Time Dysphagia [id number] Active 024 BERNARDA Tellez MD [address] [facility],[place] [address], [place], [phone] - [facility] 4 09:10:05 Benign neoplasm of soft tissue of head and/or neck [id number] Active 024 BERNARDA Tellez MD [address] [facility] [address], [place], [phone], [facility] - [facility] 09:13:57 Problem Notes None recorded. Procedures Surgical History Date Name Laterality Status Provider Name and Address Organization Details Recorded Time 01/20/2024 FFL_RE completed BERNARDA BELL MD [address] [facility] [address], [place], [address], [facility] - [facility] 01/20/2024 09:14:05 Imaging Results None [...] Updated DateTime 01/20/2024 182.88 cm 35.3 kg/m2 445571.02 g Kat Major [place] - [facility] 01/20/2024 09:04:31 Social History None recorded. Functional Status None recorded. Mental Status None recorded. Family History Nothing Reported. Medical History No medical history recorded. Past Encounters Encounter ID Performer Location Encounter Start Date Encounter Closed Date Diagnosis/Indication Diagnosis SNOMED-CT Code Diagnosis ICD10 Code Diagnosis IMO Codes Diagnosis Note [id number] BERNARDA BELL MD [facility] [address] [phone] 01/20/2024 08:46:56 01/20/2024 09:20:43 Dysphagia [id number] R13.10 Laryngosco py was normal. Mild. Recommend small bites and washing down with fluid and to call if it worsens. 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 BERNARDA BELL MD [address] [place] [address], [place], [phone], [facility] - [facility] 01/20/2024 09:23:32
== END 2025-07-04 15:19 | disposition home or self-care (01) ==
LOC: HO.HCS 14:54
PROVIDERS: PCP Internal Medicine; Visit Provider Internal Medicine Cardiovascular Disease
DX: I25.10 Atherosclerotic heart disease of native coronary artery without angina pectoris (principal); I10 Essential (primary) hypertension; R05.9 Cough, unspecified
CPT/HCPCS: 99214

== ENCOUNTER → 2025-07-04 14:54 | Outpatient (BNVA) | payer OTHER, SELFPAY | PROVIDERS: PCP Internal Medicine; Visit Provider Internal Medicine Cardiovascular Disease | DX: R05.9 Cough, unspecified (principal); I25.10 Atherosclerotic heart disease of native coronary artery without angina pectoris; I10 Essential (primary) hypertension; Z95.5 Presence of coronary angioplasty implant and graft | CPT/HCPCS: 99212 ==

== ENCOUNTER 2025-07-10 08:57 | Outpatient (AMB) | payer OTHER, SELFPAY ==
[2025-07-10 09:14] VITALS: BP 110/74; PULSE 80; O2SAT 96; BMI 39.9
--- NOTE | 2025-07-10 09:14 | A.OFFVIS_ITS ---
Vital Signs 07/10/25 09:14 Height 6 ft Weight 294 lb 5.074 oz BMI 39.9 BP 110/74 Blood Pressure Location Lt brachial Position Sitting Pulse 80 Pulse Source Pulse Oximeter Pulse Oximetry (%) 96 Oxygen Delivery Method Room Air Intake Visit Reasons: Somnolence Intake Note: pt is here for follow up of KELSY and states he still has the dry hacky cough all the time, cpap is being used all night but machine is malfunctioning and stating 3 hours. Manager Of Program Required: No Maintenance Services Dispatcher: Maintenance Services Dispatcher offered & declined Allergies erythromycin base Allergy (Mild, Verified 07/10/25 09:18) Confusion clonidine Adverse Reaction (Severe, Verified 07/10/25 09:18) Vomiting PFSH Medical History Cough BMI 40.0-44.9, adult Esophageal abnormality Constipation Abnormal lung sounds Hiatal hernia Powers esophagus determined by biopsy Obesity (BMI 30-39.9) Difficulty swallowing Screening for prostate cancer Screening for colon cancer Adult general medical exam Laboratory exam ordered as part of routine general medical examination Imbalance Left-sided chest wall pain Dizziness Fatigue Unsteady gait Yeast infection of the skin Abnormal CT lung screening Headache Puncture wound of scalp Left knee pain Sacroiliitis Osteoarthritis of knee Infection of skin Exposure to potential infection Urinary hesitancy Decreased visual acuity Low vitamin B12 level Morbid obesity Elevated fasting glucose Chest discomfort COPD (chronic obstructive pulmonary disease) KELSY on CPAP Torn rotator cuff Diabetes High cholesterol Hypertension Surgical History History of esophagogastroduodenoscopy (EGD) Hx of colonoscopy Stented coronary artery History of carpal tunnel surgery Family History Other Mental health disorder Substance abuse Social History Household Members Other:: roommate Housing: House Are you a primary child care team lead to a significant other at home: No Do you presently have visiting nurse or other home services: No Alcohol intake: never Patient Tobacco Use Status: Former Tobacco user e-Cigarette/Vaping Use: Never Used Second Hand Smoke Exposure: No service: No Current occupational status: unemployed Current occupational exposures/hazards: No Cognitive needs: Yes (CANE) Hearing needs: No Vision needs: Yes 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
--- NOTE | 2025-07-10 09:19 | MHC.OFFVIS ---
Vital Signs 07/10/25 09:14 Height 6 ft Weight 294 lb 5.074 oz BMI 39.9 BP 110/74 Blood Pressure Location Lt brachial Position Sitting Pulse 80 Pulse Source Pulse Oximeter Pulse Oximetry (%) 96 Oxygen Delivery Method Room Air Intake Visit Reasons: Somnolence, KELSY (obstructive sleep apnea), COPD follow-up Allergies erythromycin base Allergy (Mild, Verified 07/10/25 09:21) Confusion clonidine Adverse Reaction (Severe, Verified 07/10/25 09:21) Vomiting Medication List - Last Reconciled 07/10/25 by Jessica Wylie MD amitriptyline 50 mg PO BEDTIME amlodipine 10 mg PO DAILY 90 days aripiprazole 10 mg PO DAILY aspirin (Adult Low Dose Aspirin) 81 mg PO DAILY 90 days bupropion HCl XL 150 mg PO DAILY bupropion HCl XL 300 mg PO DAILY 90 days carvedilol 25 mg PO Q12H 90 days cholecalciferol (vitamin D3) 25 mcg PO DAILY 90 days cyanocobalamin (vitamin B-12) 1,000 mcg PO DAILY 90 days duloxetine 30 mg PO DAILY 90 days escitalopram oxalate 5 mg PO DAILY gabapentin 300 mg PO TID 30 days hydroxyzine HCl 25 mg PO TID@0900,1730,2100 hydroxyzine pamoate 50 mg PO BEDTIME indomethacin 25 mg PO BID 30 days ipratropium-albuterol 20-100 mcg/actuation (Combivent Respimat) 1 puff inhalation Q6H PRN isosorbide mononitrate ER 30 mg PO DAILY loratadine 10 mg PO BEDTIME 90 days metformin 750 mg PO BEDTIME metformin 500 mg PO DAILY omeprazole 20 mg PO BID pramipexole 0.5 mg PO BEDTIME 30 days pyridoxine (vitamin B6) 50 mg PO DAILY 90 days rosuvastatin 40 mg PO DAILY 90 days tamsulosin 0.4 mg PO BEDTIME 90 days topiramate 200 mg (2 x 100 mg) PO BID 90 days umeclidinium-vilanterol 62.5-25 mcg/actuation (Anoro Ellipta) 1 inh inhalation Q24H 30 days Do you need a note to return to daycare/school/sports/work: No HPI HPI Somnolence: Details: This 50 years old gentleman with gross obesity, has obstructive sleep apnea which is being treated with CPAP therapy. He has had difficulty in getting the optimal results from the use of CPAP, as he uses it only for about 4 hours per night. He has a long garza and there is no way that he can have complete seal , so continues to have some air leak. He claims that he is using CPAP every night for more than 4 hours. Breathing is stable except for his shortness of breath on exertion. Main complaint is continued cough which is mostly dry, nonproductive, during the daytime. Denies nasal congestion or postnasal drip. He does complain of GERD symptoms and difficulty in swallowing. He is going to have upper endoscopy in the near future, and does use omeprazole 20 mg b.i.d. [facility] Medical History Cough BMI 40.0-44.9, adult Esophageal abnormality Constipation Abnormal lung sounds Hiatal hernia Rojas esophagus determined by biopsy Obesity (BMI 30-39.9) Difficulty swallowing Screening for prostate cancer Screening for colon cancer Adult general medical exam Laboratory exam ordered as part of routine general medical examination Imbalance Left-sided chest wall pain Dizziness Fatigue Unsteady gait Yeast infection of the skin Abnormal CT lung screening Headache Puncture wound of scalp Left knee pain Sacroiliitis Osteoarthritis of knee Infection of skin Exposure to potential infection Urinary hesitancy Decreased visual acuity Low vitamin B12 level Morbid obesity Elevated fasting glucose Chest discomfort COPD (chronic obstructive pulmonary disease) KELSY on CPAP Torn rotator cuff Diabetes High cholesterol Hypertension Surgical History History of esophagogastroduodenoscopy (EGD) Hx of colonoscopy Stented coronary artery History of carpal tunnel surgery Family History Other Mental health disorder Substance abuse Social History Household Members Other:: roommate Housing: House Are you a primary patient care specialist to a significant other at home: No Do you presently have visiting nurse or other home services: No Alcohol intake: never Patient Tobacco Use Status: Former Tobacco user e-Cigarette/Vaping Use: Never Used Second Hand Smoke Exposure: No service: No Current occupational status: unemployed Current occupational exposures/hazards: No Cognitive needs: Yes (CANE) Hearing needs: No Vision needs: Yes Review of Systems Const All systems reviewed & are unremarkable except as noted in HPI and below Eyes Reports no additional complaints ENT Reports no additional complaints Card Denies chest pain, Denies irregular heart rhythm and Denies leg edema Resp Reports as per HPI GI Reports heartburn (GERD symptoms being treated) Reports difficulty urinating and Reports nocturia Musc Reports numbness (Lower extremity) and Reports other (Carpal tunnel syndrome both wrists) Skin/Breast Reports dry skin Neuro Reports numbness (Lower extremity) and Reports restless legs Psych Reports anxiety and Reports depression Endo Reports other (Being treated for diabetes mellitus) Ludin/Lymph Reports no additional complaints Aller/Immun Reports no additional complaints Physical Exam Vital Signs: Last Vital Signs Pulse 80 07/10/25 09:14 BP 110/74 07/10/25 09:14 Pulse Ox 96 07/10/25 09:14 Oxygen Delivery Method Room Air 07/10/25 09:14 BMI result Body Mass Index 39.9 This gentleman is grossly obese, with a round face, and a fat neck. Const General: comfortable, no acute distress, alert and awake Orientation/consciousness: patient oriented x3 HEENT Head: Yes normal to inspection General nose exam: No nasal polyps present and No nasal discharge present Face and sinus: Yes sinuses nontender Mouth: oropharynx normal (Oropharynx is crowded, Mallampati class 4) Throat: Yes posterior oropharynx normal Eyes General: appearance normal, both eyes and all related structures Neck Neck: Yes normal visual inspection, Yes no lymphadenopathy, Yes trachea midline and Yes no JVD Thyroid: Thyroid normal Chest Chest palpation & inspection: normal inspection of the chest, normal palpation of entire chest wall and no tenderness Resp Other: Percussion note not perceptible because of the thick and obese chest wall. Breath sounds are generally distant. especially over the basilar areas No audible wheezes or rhonchi, or crepitations. Cardio Palpation: PMI not normal (Not palpable) Rate: regular rate Rhythm: regular rhythm Heart sounds: no gallops and no murmurs GI Palpation (GI): Soft to palpation, Tenderness to palpation present (GI), No hepatosplenomegaly present, Palpable mass present and Other GI palpation findings present (Abdomen is grossly obese and slightly protuberant) Auscultation: normal bowel sounds Back/Spine/Pelvis Thoracic/Lumbar Spine: thoracic and lumbar spine normal to inspection and thoraco-lumbar ROM limited Skin General skin exam: no rashes or lesions noted and dry skin Neuro General: patient oriented x3 and no focal motor deficits Cranial nerves: Yes CN's II-XII intact bilaterally Extrem General: Yes normal to inspection, Yes no clubbing, cyanosis or edema and Yes no calf tenderness Psych Appearance: grossly normal and well kempt Speech and movement: Normal speech and movement present Results Reviewed Results Reviewed: Compliance report for the last 30 nights reviewed. He has used 30/30 nights and average use it per night 4 hours 6 minutes. There is significant air leak. Residual AHI 5.4 mostly obstructive events.( secondary to continued air leak issue 0 Assessment & Plan Assessment & Plan (1) Obstructive sleep apnea syndrome: Code(s): G47.33 - Obstructive sleep apnea (adult) (pediatric) Plan: HE HAS CHRONIC OBSTRUCTIVE SLEEP APNEA. CONTROLLED WITH CPAP USAGE ADVISED TO CONTINUE USING IT REGULARLY (2) Obesity (BMI 30-39.9): Comment: THIS IS A CHRONIC PROBLEM IN HIS CASE, PATIENT IS FULLY AWARE, HE TRIES TO LIMIT CALORIES INTAKE. It is BECAUSE OF LOW LEVEL OF ACTIVITY THAT HE CANNOT LOSE WEIGHT. DID LOSE 3 LB IN THE LAST 3 MONTHS Code(s): E66.9 - Obesity, unspecified Category: Medical Plan: DISCUSSED ABOUT THE DIET AND NEED TO WALK MORE OR DO SOME PHYSICAL ACTIVITY. CONTINUE TO LOSE WEIGHT SLOWLY (3) KELSY on CPAP: Comment: PATIENT DOES HAVE OBSTRUCTIVE SLEEP APNEA FOR MANY YEARS, HE HAS BEEN USING CPAP REGULARLY, PRESSURE 14 CM, FULLFACE MASK. HE BENEFITS FROM THE USE OF CPAP. HE DOES HAVE SIGNIFICANT AIR LEAK, , DIFFICULT TO ELIMINATE THE LEAK COMPLETELY BECAUSE OF HIS LONG GARZA. AND HE IS NOT USING HUMIDIFICATION Code(s): G47.33 - Obstructive sleep apnea (adult) (pediatric); Z99.89 - Dependence on other enabling machines and devices Category: Medical Plan: ADVISED TO KEEP THE STRAPS TYPE POSSIBLE (4) COPD (chronic obstructive pulmonary disease): Comment: PATIENT HAS BEEN TREATED A CASE OF CHRONIC OBSTRUCTIVE PULMONARY DISEASE/BRONCHIAL ASTHMA. I EXPLAINED TO HIM THE RESULTS OF PULMONARY FUNCTION TEST BEING ALMOST NORMAL. HE DOES NOT BELIEVE IT AND SAYS ,IF HE DOES NOT USE COMBIVENT RESPIMAT HE GETS MORE COUGH AND SHORTNESS OF BREATH. HIS COPD WHICH IS MILD IS UNDER CONTROL BUT HE IS HAVING ONGOING COUGH FOR THE LAST FEW WEEKS WHICH IS NOT COMING UNDER CONTROL. Code(s): J44.9 - Chronic obstructive pulmonary disease, unspecified Category: Medical Plan: CONTINUE TO USE ANORO ELLIPTA 1 INHALATION DAILY AND COMBIVENT RESPIMAT 1 INHALATION Q.6 HOURS PRN (5) Cough: Comment: HE CONTINUES TO HAVE COUGH WHICH IS MOSTLY DRY. MOST LIKELY SECONDARY TO ONGOING GERD SYMPTOMS. Code(s): R05.9 - Cough, unspecified Category: Medical Plan: I EXPLAINED TO HIM AND TOLD HIM THAT THERE IS NO NEED OF ANY STRONG COUGH SUPPRESSANT MEDICATION . HE MAY USE COUGH DROPS NEEDED . (6) GERD (gastroesophageal reflux disease): Comment: 02/02/25 EGD-rojas's Esophageal polyp (Superficial fragments of squamous epithelium) , Proximal esophageal narrowing (dilation), Hiatal hernia. Surveillance due 2030 Code(s): K21.9 - Gastro-esophageal reflux disease without esophagitis Category: Medical Qualifiers: Esophagitis presence: esophagitis presence not specified Qualified Code(s): K21.9 - Gastro-esophageal reflux disease without esophagitis Plan: HE TOLD ME THAT HE IS GOING TO HAVE A REPEAT UPPER ENDOSCOPY IN THE NEAR FUTURE. Coding Level of Care Code Est Pt Level 3 (02984) Diagnoses Obstructive sleep apnea syndrome G47.33 Obesity (BMI 30-39.9) E66.9 KELSY on CPAP G47.33; Z99.89 COPD (chronic obstructive pulmonary disease) J44.9 Cough R05.9 Gastroesophageal reflux disease, unspecified whether esophagitis present K21.9 Esophagitis presence: esophagitis presence not specified
== END 2025-07-10 09:38 | disposition home or self-care (01) ==
LOC: HO.HPS 08:59
PROVIDERS: PCP Internal Medicine; Visit Provider Internal Medicine
DX: G47.33 Obstructive sleep apnea (adult) (pediatric) (principal); E66.9 Obesity, unspecified; Z99.89 Dependence on other enabling machines and devices; J44.9 Chronic obstructive pulmonary disease, unspecified; R05.9 Cough, unspecified; K21.9 Gastro-esophageal reflux disease without esophagitis
CPT/HCPCS: 99213

== ENCOUNTER → 2025-07-10 08:57 | Outpatient (BNVA) | payer OTHER, SELFPAY | PROVIDERS: PCP Internal Medicine; Visit Provider Internal Medicine | DX: G47.33 Obstructive sleep apnea (adult) (pediatric) (principal); E66.9 Obesity, unspecified; J44.9 Chronic obstructive pulmonary disease, unspecified; K21.9 Gastro-esophageal reflux disease without esophagitis; Z79.51 Long term (current) use of inhaled steroids; Z71.3 Dietary counseling and surveillance; Z68.39 Body mass index [BMI] 39.0-39.9, adult; Z87.891 Personal history of nicotine dependence; Z99.89 Dependence on other enabling machines and devices | CPT/HCPCS: 99212 ==

== ENCOUNTER 2025-07-13 12:21 | Emergency (ER) | payer OTHER, SELFPAY ==
--- NOTE | 2025-07-13 12:51 | ED_ITS ---
HPI - Wound/Laceration General Chief Complaint: General Medical Stated Complaint: lac Time Seen by Provider: 07/13/25 12:57 Source: patient and RN notes reviewed Mode of arrival: ambulatory Limitations: no limitations History of Present Illness ED Provider: Chela Feliciano PA-C HPI narrative: This is a 50-year-old male who presents emergency department for a tetanus shot. Patient states that he accidentally lacerated his 5th digit on a marcial shelf. He states that he is unsure when his last tetanus shot was and believes it was maybe 15 years ago. No other complaints or concerns at this time. Related Data Home Medications ?Medication ?Instructions ?Recorded ?Confirmed amitriptyline 25 mg tablet 50 mg PO BEDTIME 01/01/23 1 09/10/24 escitalopram oxalate 5 mg tablet 5 mg PO DAILY 3 07/10/25 hydroxyzine HCl 25 mg tablet 25 mg PO TID@0900,1730,21 00 10/07/23 07/10/25 ipratropium 20 mcg-albuterol 100 1 puff inhalation Q6H PRN 10/27/23 07/10/25 mcg/actuation mist for inhalation Bronchospasm (Combivent Respimat) aripiprazole 5 mg tablet 10 mg PO DAILY 04/20/2506/26 bupropion HCl 150 mg 24 hr tablet, 150 mg PO DAILY 07/10/25 extended release hydroxyzine pamoate 50 mg capsule 50 mg PO BEDTIME ins omnia 04/20/25 07/10/25 metformin 500 mg tablet 500 mg PO DAILY 04/20/25 metformin 500 mg tablet 750 mg PO BEDTIME 04/20/25 1 09/10/24 omeprazole 20 mg capsule,delayed 20 mg PO BID 05/19/25 07/10/25 release Previous Rx's ?Medication ?Instructions ?Recorded bupropion HCl 300 mg 24 hr tablet, 300 mg PO DAILY 90 days #90 tabs 05/11/22 extended release pyridoxine (vitamin B6) 50 mg 50 mg PO DAILY 90 days # 90 tabs 12/02/24 tablet tamsulosin 0.4 mg capsule 0.4 mg PO BEDTIME 90 days #9 0 caps 12/02/24 rosuvastatin 40 mg tablet 40 mg PO DAILY 90 days #90 t abs 01/16/25 umeclidinium 62.5 mcg-vilanterol 1 inh inhalation Q24H 30 days #60 01/16/25 25 mcg/actuation powdr for ea inhalation (Anoro Ellipta) topiramate 100 mg tablet 200 mg (2 x 100 mg) PO BID 9 0 days 04/05/25 #360 tabs cyanocobalamin (vitamin B-12) 1,000 mcg PO DAILY 90 da ys #90 tabs 05/02/25 1,000 mcg tablet loratadine 10 mg tablet 10 mg PO BEDTIME 90 days #90 tabs 05/02/25 cholecalciferol (vitamin D3) 25 25 mcg PO DAILY 90 day s #90 caps 05/09/25 mcg (1,000 unit) capsule aspirin 81 mg tablet,delayed 81 mg PO DAILY 90 days #9 0 tabs 06/02/25 release (Adult Low Dose Aspirin) carvedilol 25 mg tablet 25 mg PO Q12H 90 days #180 t abs 06/02/25 duloxetine 30 mg capsule,delayed 30 mg PO DAILY 90 day s #90 caps 06/02/25 release gabapentin 300 mg capsule 300 mg PO TID 30 days #90 ca ps 06/08/25 amlodipine 10 mg tablet 10 mg PO DAILY 90 days #90 t abs 06/27/25 indomethacin 25 mg capsule 25 mg PO BID 30 days #60 ca ps 06/30/25 isosorbide mononitrate 30 mg 30 mg PO DAILY #90 tabs 1 08/31/24 tablet,extended release 24 hr pramipexole 0.5 mg tablet 0.5 mg PO BEDTIME 30 days #3 0 tabs 06/30/25 Allergies Allergy/AdvReac Type Severity Reaction Status Date / Time erythromycin base Allergy Mild Confusion Verified 07/13/25 12:53 clonidine AdvReac Severe Vomiting Verified 07/13/25 12:53 [facility] Past Medical History Attestation statement: The following information was validated with the patient. Medical History Cough BMI 40.0-44.9, adult Esophageal abnormality Constipation Abnormal lung sounds Hiatal hernia Powers esophagus determined by biopsy Obesity (BMI 30-39.9) Difficulty swallowing Screening for prostate cancer Screening for colon cancer Adult general medical exam Laboratory exam ordered as part of routine general medical examination Imbalance Left-sided chest wall pain Dizziness Fatigue Unsteady gait Yeast infection of the skin Abnormal CT lung screening Headache Puncture wound of scalp Left knee pain Sacroiliitis Osteoarthritis of knee Infection of skin Exposure to potential infection Urinary hesitancy Decreased visual acuity Low vitamin B12 level Morbid obesity Elevated fasting glucose Chest discomfort COPD (chronic obstructive pulmonary disease) KELSY on CPAP Torn rotator cuff Diabetes High cholesterol Hypertension Surgical History History of esophagogastroduodenoscopy (EGD) Hx of colonoscopy Stented coronary artery History of carpal tunnel surgery Family History Family History Other Mental health disorder Substance abuse Social History Social History Household Members Other:: roommate Housing: House Are you a primary health care attorney to a significant other at home: No Do you presently have visiting nurse or other home services: No Alcohol intake: never Patient Tobacco Use Status: Former Tobacco user e-Cigarette/Vaping Use: Never Used Second Hand Smoke Exposure: No Advance Directives: No Advance Directives Information Provided: Yes Do you have a plan to hurt others: No Plan service: No Current occupational status: unemployed Current occupational exposures/hazards: No Cognitive needs: Yes (CANE) Hearing needs: No Vision needs: Yes Physical Exam Exam: Exam: General: Awake, alert, and oriented X3. No acute distress. HEENT: Normal inspection CVS: Normal heart rate and rhythm. Pulses normal. Respiratory: No respiratory distress Skin: Warm, dry, no rashes noted to exposed skin. Normal skin color. Normal skin turgor. Extremities: Right 5th digit at the tip of his finger, there is a 1 mm superficial abrasion noted, no active bleeding, full range of motion, no surrounding erythema or warmth. Neuro: Oriented X 3. No motor deficit. No sensory deficit. Vital Signs: Vital Signs: Last Vital Signs Temp 98.2 F 07/13/25 13:25 Pulse 80 07/13/25 13:25 Resp 16 07/13/25 13:25 BP 127/84 07/13/25 13:25 Pulse Ox 98 07/13/25 13:25 O2 Del Method Room Air 07/13/25 13:25 BMI result Body Mass Index 39.9 Medications Administered Discontinued Medications Generic Name Dose Route Start Last Admin Trade Name Nilesh PRN Reason Stop Dose Admin Diphtheria/Tetanus/Acell Pertussis 0.5 ml 07/13/25 12:54 07/13/25 13:22 Diphth,Pertus(Acell),Tet Adult 0.5 Ml Syringe IM 07/13/25 12:55 Not Given .ONCE ONE Medical Decision Making Medical Decision Making [facility] Narrative: This is a 50-year-old male who presents emergency department for tetanus shot. He accidentally lacerated his right 5th digit on a marcial shelf at home. He states that he cleansed the wound. Wound is superficial in nature, we are able to look up his last tetanus, patient does not need tetanus today as he last received it last year. No need for any additional wound closure as wound is well healed already. Given strict return precautions. Patient stable for discharge Differential Diagnosis Differential Diagnoses: The differential diagnosis associated with the presentation includes Laceration, abrasion, puncture wound, tetanus prophylaxis Discharge Plan Discharge Clinical Impression: Laceration of finger of right hand Patient Disposition: Home, Self-Care Instructions: Laceration Without Closure (ED) Additional Instructions: Keep finger clean and dry. We updated your tetanus in the department today. Please update your records. You are wound did not require any suture repair. If any new or worsening symptoms occur including but not limited to increased redness, swelling, please seek emergent care. Prescriptions: No Action bupropion HCl 300 mg tablet extended release 24 hr 300 mg PO DAILY 90 Days Qty: 90 2RF tamsulosin 0.4 mg capsule 0.4 mg PO BEDTIME 90 Days Qty: 90 3RF pyridoxine (vitamin B6) 50 mg tablet 50 mg PO DAILY 90 Days Qty: 90 3RF umeclidinium-vilanterol [Anoro Ellipta] 62.5-25 mcg/actuation blister with device 1 inh inhalation Q24H 30 Days Qty: 60 0RF rosuvastatin 40 mg tablet 40 mg PO DAILY 90 Days Qty: 90 3RF loratadine 10 mg tablet 10 mg PO BEDTIME 90 Days Qty: 90 3RF cyanocobalamin (vitamin B-12) 1,000 mcg tablet 1,000 mcg PO DAILY 90 Days Qty: 90 0RF cholecalciferol (vitamin D3) 25 mcg (1,000 unit) capsule 25 mcg PO DAILY 90 Days Qty: 90 0RF aspirin [Adult Low Dose Aspirin] 81 mg tablet,delayed release (DR/EC) 81 mg PO DAILY 90 Days Qty: 90 0RF carvedilol 25 mg tablet 25 mg PO Q12H 90 Days Qty: 180 0RF Rx Instructions: must administer with a meal/food duloxetine 30 mg capsule,delayed release(DR/EC) 30 mg PO DAILY 90 Days Qty: 90 0RF gabapentin 300 mg capsule 300 mg PO TID 30 Days Qty: 90 0RF amlodipine 10 mg tablet 10 mg PO DAILY 90 Days Qty: 90 0RF pramipexole 0.5 mg tablet 0.5 mg PO BEDTIME 30 Days Qty: 30 0RF indomethacin 25 mg capsule 25 mg PO BID 30 Days Qty: 60 0RF Rx Instructions: administer with food or milk isosorbide mononitrate 30 mg tablet extended release 24 hr 30 mg PO DAILY Qty: 90 3RF metformin 500 mg tablet 500 mg PO DAILY aripiprazole 5 mg tablet 10 mg PO DAILY metformin 500 mg Tablet 750 mg PO BEDTIME hydroxyzine pamoate 50 mg capsule 50 mg PO BEDTIME bupropion HCl 150 mg tablet extended release 24 hr 150 mg PO DAILY escitalopram oxalate 5 mg tablet 5 mg PO DAILY amitriptyline 25 mg tablet 50 mg PO BEDTIME hydroxyzine HCl 25 mg tablet 25 mg PO TID@0900,1730,2100 Combivent Respimat 20-100 mcg/actuation mist 1 puff inhalation Q6H PRN (Reason: Bronchospasm) topiramate 100 mg tablet 200 mg PO BID 90 Days Qty: 360 1RF omeprazole 20 mg capsule,delayed release(DR/EC) 20 mg PO BID Interventions: ED Discharge Assessment Last Done: 07/13/25 13:25 Discharge Date/Time: 07/13/25 13:26 Print Language: Upper Sorbian
[2025-07-13 12:52] VITALS: BP 127/84; PULSE 80; RESP 16; O2SAT 98; BMI 39.9
[2025-07-13 13:25] VITALS: BP 127/84; PULSE 80; RESP 16; TEMP 36.8; O2SAT 98
--- OUTSIDE RECORDS SUMMARY | 2025-07-13 16:58 | XMS_ITS | Clinical Summary ---
Author Organization [address] [facility] Address [address] [place] [address] Phone Care Team Providers Care Emergency Medcl Emt Name Role Phone Leland Trujillo MD Primary [...] Encounters Date Type Department Care Team Description 06/20/2025 2:00 PM EST Office Visit Orthopedic Surgery - [address] [id number] Joe Diaz, AIDA Controlled type 2 diabetes with neuropathy ([facility] V24, [facility] V28) (Primary Dx); Lumbosacral radiculopathy; Arthritis of both feet; Dermatophytosis, nail from Last 3 Months Immunizations Immunization Administration Dates Next Due Moderna SARS-CoV-2 COVID-19, mRNA, LNP-S, preservative free 12/01/2020,11/03/2020 Medical History Medical History Date Comments Diabetes mellitus ([facility] V24, [facility] V28) DX:Diabetes mellitus (HCC) Heart attack ([facility] V24, [facility] V28) DX:Heart attack (HCC) Mixed hyperlipidemia DX:Mixed hy perlipidemia HTN (hypertension) DX:HTN (hyper tension) Social History Tobacco Use Types Packs/Day Years Used Date Smoking Tobacco: Never Assessed Sex and Gender Information Value Date Recorded Sex Assigned at Not on file Legal Sex Male 11:18 AM EST Gender Identity Not on file Sexual Orientation Not on file Last Filed Vital Signs Vital Sign Reading [...] Care Team (Late st Contact Info) Description 08/22/2025 9:30 AM EST Office Visit Orthopedic Surgery - [place] [address] [facility] [address] [place] [id number] Joe Diaz, AIDA [address] [id number] Health Maintenance Due Date Last Done Comments [...] series) 01/05/2051 Hepatitis C Screening Completed 09/01/2020 Influenza Vaccine Completed 03/11/2025, , 05/03/2019 COVID-19 Vaccine Completed 04/26/2025, 02/2021, 11/03/2020 HIB Vaccines Aged Out No longer eligi [...] * Annual BMP Blood Test (06/29/2021) Pathologist [facility] Annual BMP Blood Test abstracted Historical Provider HEALTH MAINTENANCE Final Result * Hemoglobin A1c (06/29/2021) Pathologist [facility] Hemoglobin A1C 0.0 % Comment:abstracted, no inter pretation Blood Venous blood specimen / Unknown Historical Provider LAB BLOOD ORDERABLES Rebeca l Result * Lipid panel (06/29/2021) Pathologist [facility] LDL/HDL Ratio 0 Comment:abstracted, no inter pretation Triglycerides 0 mg/dL Comment:abstracted, no inter pretation Cholesterol 0 mg/dL Comment:abstracted, no inter pretation HDL 0 mg/dL Comment:abstracted, no inter pretation LDL Cholesterol 0.0 mg/dL Comment:abstracted, no inter pretation Blood Venous blood specimen / Unknown Result [facility] Provider LAB BLOOD ORDERABLES Rebeca l Result * Hepatitis C Screening (09/01/2020) [facility] Hepatitis C Screening abstracted Result [facility] Provider HEALTH MAINTENANCE Final Result * Urine Albumin Creatinine Ratio (02/03/2020) [facility] Urine Albumin Creatinine Ratio abstracted [facility] Provider HEALTH MAINTENANCE Final Result from Last 3 Months or Most Recently Relevant to Health Maintenance Insurance [facility] [employer] [facility] Care Teams Emergency Medcl Emt Relationship Specialty Start Date End Date Leland Trujillo MD [address] [place] [address] Dr Michelle MA PCP - General 05/09/22
--- OUTSIDE RECORDS SUMMARY | 2025-07-13 16:58 | XMS_ITS | Data Portability ---
Author Organization [place] - [facility], Allergy Address [address] [place] [phone] Assessment No assessment recorded. Plan of Treatment Reminders Order Date Submit Date Provider Last Modified By Organization Details Last Modified Time Details Appointments None recorded. Lab None recorded. 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 2023 024 2 [facility] Ot[facility]olog [facility], [address] [facility], [facility], [place], [address], 4 12:21:10 Procedures None recorded. 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 100, [place], [address], [facility] - [facility] 09:13:57 Problem Notes None recorded. Procedures Surgical History Date Name Laterality Status Provider Name and Address Organization Details Recorded Time 01/20/2024 FFL_RE completed BERNARDA BELL MD 100 [facility] 100, [place], [address], [facility] - [facility] 01/20/2024 09:14:05 Imaging Results None recorded. [...] Updated DateTime 01/20/2024 182.88 cm 35.3 kg/m2 020249.02 g Kat Major [place] - [facility] 01/20/2024 09:04:31 Social History None recorded. Functional Status None recorded. Mental Status None recorded. Family History Nothing Reported. Medical History No medical history recorded. Past Encounters Encounter ID Performer Location Encounter Start Date Encounter Closed Date Diagnosis/Indication Diagnosis SNOMED-CT Code Diagnosis ICD10 Code Diagnosis IMO Codes Diagnosis Note [id number] BERNARDA BELL MD [facility] [address] [address] 01/20/2024 08:46:56 01/20/2024 09:20:43 Dysphagia 13012350 R13.10 Laryngosco py was normal. Mild. Recommend small bites and washing down with fluid and to call if it worsens. 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 BERNARDA BELL MD [address] [place] [address], [place], [address], [facility] - [facility] 01/20/2024 09:23:32
== END 2025-07-13 13:26 | disposition home or self-care (01) ==
PROVIDERS: Emergency Provider Emergency Medicine Emergency Medical Services; PCP Family Medicine
DX: S61.216A Laceration without foreign body of right little finger without damage to nail, initial encounter (principal); W45.0XXA Nail entering through skin, initial encounter; Y93.89 Activity, other specified; Y92.9 Unspecified place or not applicable; Y99.9 Unspecified external cause status
CPT/HCPCS: 90471; 96372; 99282; 99284

== ENCOUNTER 2025-07-16 19:20 | Emergency (ER) | payer OTHER, SELFPAY ==
--- NOTE | ~2025-07-16 | XR_ITS ---
CLINICAL HISTORY: cough 2 view chest x-ray Comparison: 06/02/2025 Findings: Lungs are clear without acute infiltrates. No pneumothorax. Heart size normal. No acute bony abnormalities. Impression: No acute processes This document has been electronically signed by: Helder Servin MD on 07/16/2025 20:21:28
[2025-07-16 19:26] VITALS: BP 160/82; PULSE 91; O2SAT 97
[2025-07-16 19:29] VITALS: BP 121/79; PULSE 90; RESP 20; TEMP 36.6; O2SAT 97; BMI 40.7
--- OUTSIDE RECORDS SUMMARY | 2025-07-16 19:40 | XMS_ITS | Clinical Summary ---
Author Organization 175 [facility] Address 175 [place] [address] Phone Care Team Providers Care Senior Tax Accountant Name Role Phone Leland Truijllo MD Primary Care Provider [phone] Allergies Active Allergy Reactions Criticality Noted Date [...] PM EST Office Visit Orthopedic Surgery - [address] [address] Joe Diaz, AIDA Controlled type 2 diabetes with neuropathy ([facility] V24, [facility] V28) (Primary Dx); Lumbosacral radiculopathy; Arthritis of both feet; Dermatophytosis, nail from Last 3 Months Immunizations Immunization Administration Dates Next Due Moderna SARS-CoV-2 COVID-19, mRNA, LNP-S, preservative free 12/01/2020,11/03/2020 Medical History Medical History Date Comments Diabetes mellitus ([facility] V24, [facility] V28) DX:Diabetes mellitus (HCC) Heart attack ([facility] V24, [facility] V28) DX:Heart attack (HCC) Mixed [...] AM EST Office Visit Orthopedic Surgery - [place] [address] [facility] 250 [place] [phone] Joe Diaz, AIDA [address] [address] Health Maintenance Due Date Last Done Comments [...] * Annual BMP Blood Test (06/29/2021) Pathologist [facility] Annual BMP Blood Test abstracted Historical Provider [...] Blood Venous blood specimen / Unknown Result [facility] Provider LAB BLOOD ORDERABLES Rebeca l Result * Hepatitis C Screening (09/01/2020) [facility] Hepatitis C Screening abstracted Result [facility] Provider HEALTH MAINTENANCE Final Result * Urine Albumin Creatinine Ratio (02/03/2020) [facility] Urine Albumin Creatinine Ratio abstracted [facility] Provider HEALTH MAINTENANCE Final Result from Last 3 Months or Most Recently Relevant to Health Maintenance Insurance [facility] [place] [phone] Care Teams Senior Tax Accountant Relationship Specialty Start Date End Date Leland Trujillo MD [address] [place] [address] Dr Michelle [place] PCP - General 05/09/22
--- OUTSIDE RECORDS SUMMARY | 2025-07-16 19:40 | XMS_ITS | Data Portability ---
Author Organization [place] - [facility], Allergy Address [address] [place] [phone] Assessment No assessment recorded. Plan of Treatment Reminders Order Date Submit Date Provider Last Modified By Organization Details Last Modified Time Details Appointments None recorded. Lab None recorded. 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 2023 024 [id number] 2 [facility] Otol[facility]olog y, [address] [facility], [facility], [place], [address], 4 12:21:10 Procedures None recorded. 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 Procedures Surgical History Date Name Laterality Status Provider Name and Address Organization Details Recorded Time 01/20/2024 FFL_RE completed BERNARDA BELL MD 100 [facility] 100, [place], [address], [facility] - [facility] 01/20/2024 09:14:05 Imaging Results None recorded. [...] Updated DateTime 01/20/2024 182.88 cm 35.3 kg/m2 198007.02 g Kat Major [place] - [facility] 01/20/2024 09:04:31 Social History None recorded. Functional Status None recorded. Mental Status None recorded. Family History Nothing Reported. Medical History No medical history recorded. Past Encounters Encounter ID Performer Location Encounter Start Date Encounter Closed Date Diagnosis/Indication Diagnosis SNOMED-CT Code Diagnosis ICD10 Code Diagnosis IMO Codes Diagnosis Note [id number] BERNARDA BELL MD [facility] [address] [address] 01/20/2024 08:46:56 01/20/2024 09:20:43 Dysphagia 06128941 R13.10 Laryngosco py was normal. Mild. Recommend small bites and washing down with fluid and to call if it worsens. 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 BERNARDA BELL MD [address] [place] [address], [place], [address], [facility] - [facility] 01/20/2024 09:23:32
--- NOTE | 2025-07-16 19:44 | ED_ITS ---
HPI - General Adult General Chief complaint: General Medical Stated complaint: cough x2 months, headache Time Seen by Provider: 07/16/25 19:44 History of Present Illness ED Provider: Yoselyn JULIO narrative: The patient is a 50-year-old male who says that he has been having problems with a cough for several months. He says he has seen multiple specialists without any real improvement. The patient says that he comes to the emergency room today because he has felt worse since yesterday. He says that yesterday he thought he was developing a sinus infection. He was feeling a sense of congestion and he also developed a cough. He also says that he started feeling dizzy when he was lying down. He says that he has a lot of experience with dizziness but usually it is only when he is standing. This is why he uses a cane. He says that he has been on meclizine in the past for dizziness but ultimately stopped using it because he did not feel it was helping him. He does not know if he has had a fever. He says that he has a sore throat that he thinks is secondary to a cough. He does not feel he has a primary sore throat. He feels that he has sinus congestion. The patient called an ambulance to come to the emergency room today for evaluation of these symptoms. Related Data Home Medications ?Medication ?Instructions ?Recorded ?Confirmed amitriptyline 25 mg tablet 50 mg PO BEDTIME 01/01/23 1 09/10/24 escitalopram oxalate 5 mg tablet 5 mg PO DAILY 3 07/10/25 hydroxyzine HCl 25 mg tablet 25 mg PO TID@0900,1730,21 00 10/07/23 07/10/25 ipratropium 20 mcg-albuterol 100 1 puff inhalation Q6H PRN 10/27/23 07/10/25 mcg/actuation mist for inhalation Bronchospasm (Combivent Respimat) aripiprazole 5 mg tablet 10 mg PO DAILY 04/20/2506/26 bupropion HCl 150 mg 24 hr tablet, 150 mg PO DAILY 07/10/25 extended release hydroxyzine pamoate 50 mg capsule 50 mg PO BEDTIME ins omnia 04/20/25 07/10/25 metformin 500 mg tablet 500 mg PO DAILY 04/20/25 metformin 500 mg tablet 750 mg PO BEDTIME 04/20/25 1 09/10/24 omeprazole 20 mg capsule,delayed 20 mg PO BID 05/19/25 07/10/25 release Previous Rx's ?Medication ?Instructions ?Recorded bupropion HCl 300 mg 24 hr tablet, 300 mg PO DAILY 90 days #90 tabs 05/11/22 extended release pyridoxine (vitamin B6) 50 mg 50 mg PO DAILY 90 days # 90 tabs 12/02/24 tablet tamsulosin 0.4 mg capsule 0.4 mg PO BEDTIME 90 days #9 0 caps 12/02/24 rosuvastatin 40 mg tablet 40 mg PO DAILY 90 days #90 t abs 01/16/25 umeclidinium 62.5 mcg-vilanterol 1 inh inhalation Q24H 30 days #60 01/16/25 25 mcg/actuation powdr for ea inhalation (Anoro Ellipta) topiramate 100 mg tablet 200 mg (2 x 100 mg) PO BID 9 0 days 04/05/25 #360 tabs cyanocobalamin (vitamin B-12) 1,000 mcg PO DAILY 90 da ys #90 tabs 05/02/25 1,000 mcg tablet loratadine 10 mg tablet 10 mg PO BEDTIME 90 days #90 tabs 05/02/25 cholecalciferol (vitamin D3) 25 25 mcg PO DAILY 90 day s #90 caps 05/09/25 mcg (1,000 unit) capsule aspirin 81 mg tablet,delayed 81 mg PO DAILY 90 days #9 0 tabs 06/02/25 release (Adult Low Dose Aspirin) carvedilol 25 mg tablet 25 mg PO Q12H 90 days #180 t abs 06/02/25 duloxetine 30 mg capsule,delayed 30 mg PO DAILY 90 day s #90 caps 06/02/25 release gabapentin 300 mg capsule 300 mg PO TID 30 days #90 ca ps 06/08/25 amlodipine 10 mg tablet 10 mg PO DAILY 90 days #90 t abs 06/27/25 indomethacin 25 mg capsule 25 mg PO BID 30 days #60 ca ps 06/30/25 isosorbide mononitrate 30 mg 30 mg PO DAILY #90 tabs 1 08/31/24 tablet,extended release 24 hr pramipexole 0.5 mg tablet 0.5 mg PO BEDTIME 30 days #3 0 tabs 06/30/25 Allergies Allergy/AdvReac Type Severity Reaction Status Date / Time erythromycin base Allergy Mild Confusion Verified 07/16/25 19:31 clonidine AdvReac Severe Vomiting Verified 07/16/25 19:31 Review of Systems 2 Review of Systems: Yes all other systems are reviewed and are negative [facility] Past Medical History Medical History Cough BMI 40.0-44.9, adult Esophageal abnormality Constipation Abnormal lung sounds Hiatal hernia Powers esophagus determined by biopsy Obesity (BMI 30-39.9) Difficulty swallowing Screening for prostate cancer Screening for colon cancer Adult general medical exam Laboratory exam ordered as part of routine general medical examination Imbalance Left-sided chest wall pain Dizziness Fatigue Unsteady gait Yeast infection of the skin Abnormal CT lung screening Headache Puncture wound of scalp Left knee pain Sacroiliitis Osteoarthritis of knee Infection of skin Exposure to potential infection Urinary hesitancy Decreased visual acuity Low vitamin B12 level Morbid obesity Elevated fasting glucose Chest discomfort COPD (chronic obstructive pulmonary disease) KELSY on CPAP Torn rotator cuff Diabetes High cholesterol Hypertension Surgical History History of esophagogastroduodenoscopy (EGD) Hx of colonoscopy Stented coronary artery History of carpal tunnel surgery Family History Family History Other Mental health disorder Substance abuse Social History Social History Household Members Other:: roommate Housing: House Are you a primary customer care consultant to a significant other at home: No Do you presently have visiting nurse or other home services: No Alcohol intake: never Patient Tobacco Use Status: Former Tobacco user e-Cigarette/Vaping Use: Never Used Second Hand Smoke Exposure: No service: No Current occupational status: unemployed Current occupational exposures/hazards: No Cognitive needs: Yes (CANE) Hearing needs: No Vision needs: Yes Physical Exam ED Vital Signs: Vital Signs - 24 hr 07/16/25 19:29 07/16/25 20:20 07/16/25 20:40 Temperature 97.8 F 98 F Pulse Rate 90 88 89 Respiratory Rate 20 18 20 Blood Pressure 121/79 124/78 Pulse Oximetry 97 97 Oxygen Delivery Method Room Air Room Air 07/16/25 22:29 07/16/25 22:39 Temperature 98.2 F 98.2 F Pulse Rate 88 88 Respiratory Rate 20 20 Blood Pressure 134/80 134/80 Pulse Oximetry 97 97 Oxygen Delivery Method Room Air Room Air BMI result Body Mass Index 40.7 Const Other: The patient is a chronically ill-appearing 50-year-old. He has a BMI of 40. He has a very large maxwell. He does not appear obviously acutely ill. He has not appear in obvious discomfort or any respiratory difficulty. HENMT Other: Face is symmetrical. Tongue is midline. Mucous membranes are moist. The posterior pharynx is unremarkable. Eyes Other: Pupils are round equal, conjunctivae are clear, extraocular movements intact Neck Neck: Yes full ROM and Yes no lymphadenopathy Resp Other: The patient has diminished air entry bilaterally. Breath sounds seems symmetrical. No definite crackles or wheezes. Cardio Rate: regular rate Rhythm: regular rhythm Heart sounds: S1 normal heart sound present and S2 normal heart sound present GI Other: Abdomen is soft and nontender Skin Other: The skin is dry and unremarkable Neuro Other: the patient is awake and alert with a normal mental status. Pupils are round equal. No nystagmus. Eye movements intact. Face is symmetrical. The patient seems to move his extremities symmetrically. Extrem Other: There is no calf swelling or tenderness. No asymmetry. No peripheral edema. Medications Administered Discontinued Medications Generic Name Dose Route Start Last Admin Trade Name Freq PRN Reason Stop Dose Admin Albuterol/Ipratropium 3 ml 07/16/25 20:07 07/16/25 20:18 Albuterol/Iprat 2.5/0.5mg 3 Ml Ampul.Neb INHALE 07/16/25 20:08 3 ml ONCE ONE Administration Meclizine HCl 25 mg 07/16/25 20:07 07/16/25 20:41 Meclizine Hcl 25 Mg Tablet PO 07/16/25 20:08 25 mg ONCE ONE Administration Medical Decision Making Medical Decision Making [facility] Narrative: The patient is a 50-year-old male who is complaining of cough and dizziness and a sense of general congestion. He does not appear obviously ill and he has normal vital signs. He has no nystagmus on exam. He seemed steady on his feet when he walked with his cane. His chest x-ray is clear. He has a history of coronary disease. His EKG shows sinus rhythm at 78 beats per minute with no definite acute ischemic changes. his EKGs similar to previous EKGs. His troponins are flat. Blood work shows a unremarkable CBC with a white count of 5.9 and a differential that shows 47.7 % neutrophils and 38.7% lymphocytes. He has a normal CRP. His metabolic panel shows a carbon dioxide of 18 and a creatinine of 1.38 which is slightly higher than when last checked. Viral swabs are negative for COVID, the flu, and RSV. The patient was given a bronchodilator treatment. It may have been slightly helpful. The patient may have some degree of a COPD exacerbation. However he says that he does not feel that he would likely get much benefit from prednisone or antibiotics because he has been on courses of both of these medications recently and they have not helped his symptoms. He has a Combivent inhaler which he says he has not been using in the last 24 hours. He is encouraged to start using the Combivent inhaler. Overall I do not think he has an acute process requiring additional investigation in the emergency room or hospitalization. I think he probably has a viral respiratory illness. He will be discharged to use his Combivent inhaler and to increase his fluid intake. He should follow up with his PCP. Return to the hospital if worse. Lab Data 07/16/25 20:34 07/16/25 20:34 Labs: Lab Results 07/16/25 07/16/25 Range/Units 20:34 21:52 WBC 5.9 (4.8-10.8) X10*3/uL RBC 4.50 L (4.60-5.80) X10*6/uL Hgb 13.4 L (14.0-18.0) g/dl Hct 40.5 L (42.0-52.0) % MCV 90.0 (80.0-98.0) fL MCH 29.8 (27.0-33.0) pg MCHC 33.1 (31.0-36.0) g/dl RDW 13.4 (11.0-16.0) % Plt Count 193 (160-400) X10*3/uL MPV 10.6 (9.4-12.4) fL Immature Gran % (Auto) 0.3 (0.0-0.4) % Neut % (Auto) 47.7 (45-73) % Lymph % (Auto) 38.7 (20-40) % Boone % (Auto) 9.8 (2-11) % Eos % (Auto) 2.5 (0-4) % Baso % (Auto) 1.0 (0-2) % Lymph # (Auto) 2.3 (1.2-4.9) X10*3/uL Boone # (Auto) 0.6 (0.1-1.2) X10*3/uL Eos # (Auto) 0.2 (0.0-0.4) X10*3/uL Baso # (Auto) 0.1 (0.0-0.2) X10*3/uL Abs Immat Gran (auto) 0.02 (0.00-0.03) X10*3/uL Absolute Neuts (auto) 2.8 (2.0-8.3) x10*3/uL Absolute Nucleated RBC 0.000 (0.0-0.012) X10*3/uL Nucleated RBC % (auto) 0.0 (0.0-0.2) /100WBC Sodium 142 (135-145) mmol/L Potassium 5.0 (3.3-5.1) mmol/L Chloride 116 H (96-108) mmol/L Carbon Dioxide 18 L (22-29) mmol/L Anion Gap 13 (12-20) BUN 12 (9-16) mg/dL Creatinine 1.38 (0.5-1.4) mg/dL Estim Creat Clear Calc 92.4 Estimated GFR 55 Random Glucose 83 (60-115) mg/dL Calcium 9.3 (8.4-10.2) mg/dL Magnesium 2.2 (1.6-2.6) mg/dL Total Bilirubin 0.2 (0.0-1.0) mg/dL Direct Bilirubin < 0.2 (0.0-0.5) mg/dL AST 65 H (5-37) U/L ALT 38 (0-40) U/L Alkaline Phosphatase 82 (39-117) U/L Troponin I High Sens < 2.7 3.1 (<3.5-35.0) ng/L C-Reactive Protein 0.32 (< or = 0.50) mg/dL Total Protein 7.4 (6.5-8.0) g/dL Albumin 4.1 (3.5-5.0) g/dL Influenza Type A (PCR) NEGATIVE (Negative) Influenza Type B (PCR) NEGATIVE (Negative) RSV RNA Qual (PCR) NEGATIVE (Negative) SARS-CoV-2 RNA (RT-PCR) NEGATIVE (Negative) Discharge Plan Discharge Clinical Impression: Viral respiratory infection, Dehydration Patient Disposition: Home, Self-Care Additional Instructions: Your testing today is reassuring. Your swabs have tested negative for COVID and the flu and Your chest x-ray shows no pneumonia. Your EKG and blood testing show no sign of a heart attack. Your blood testing also shows no suggestion of a significant bacterial infection. I think you probably have a viral respiratory illness. Please increase your fluid intake. Please start using your Combivent inhaler to help with your cough. Please follow up soon with your regular doctors. Return to the emergency room if significantly worse. Prescriptions: No Action bupropion HCl 300 mg tablet extended release 24 hr 300 mg PO DAILY 90 Days Qty: 90 2RF tamsulosin 0.4 mg capsule 0.4 mg PO BEDTIME 90 Days Qty: 90 3RF pyridoxine (vitamin B6) 50 mg tablet 50 mg PO DAILY 90 Days Qty: 90 3RF umeclidinium-vilanterol [Anoro Ellipta] 62.5-25 mcg/actuation blister with device 1 inh inhalation Q24H 30 Days Qty: 60 0RF rosuvastatin 40 mg tablet 40 mg PO DAILY 90 Days Qty: 90 3RF loratadine 10 mg tablet 10 mg PO BEDTIME 90 Days Qty: 90 3RF cyanocobalamin (vitamin B-12) 1,000 mcg tablet 1,000 mcg PO DAILY 90 Days Qty: 90 0RF cholecalciferol (vitamin D3) 25 mcg (1,000 unit) capsule 25 mcg PO DAILY 90 Days Qty: 90 0RF aspirin [Adult Low Dose Aspirin] 81 mg tablet,delayed release (DR/EC) 81 mg PO DAILY 90 Days Qty: 90 0RF carvedilol 25 mg tablet 25 mg PO Q12H 90 Days Qty: 180 0RF Rx Instructions: must administer with a meal/food duloxetine 30 mg capsule,delayed release(DR/EC) 30 mg PO DAILY 90 Days Qty: 90 0RF gabapentin 300 mg capsule 300 mg PO TID 30 Days Qty: 90 0RF amlodipine 10 mg tablet 10 mg PO DAILY 90 Days Qty: 90 0RF pramipexole 0.5 mg tablet 0.5 mg PO BEDTIME 30 Days Qty: 30 0RF indomethacin 25 mg capsule 25 mg PO BID 30 Days Qty: 60 0RF Rx Instructions: administer with food or milk isosorbide mononitrate 30 mg tablet extended release 24 hr 30 mg PO DAILY Qty: 90 3RF metformin 500 mg tablet 500 mg PO DAILY aripiprazole 5 mg tablet 10 mg PO DAILY metformin 500 mg Tablet 750 mg PO BEDTIME hydroxyzine pamoate 50 mg capsule 50 mg PO BEDTIME bupropion HCl 150 mg tablet extended release 24 hr 150 mg PO DAILY escitalopram oxalate 5 mg tablet 5 mg PO DAILY amitriptyline 25 mg tablet 50 mg PO BEDTIME hydroxyzine HCl 25 mg tablet 25 mg PO TID@0900,1730,2100 Combivent Respimat 20-100 mcg/actuation mist 1 puff inhalation Q6H PRN (Reason: Bronchospasm) topiramate 100 mg tablet 200 mg PO BID 90 Days Qty: 360 1RF omeprazole 20 mg capsule,delayed release(DR/EC) 20 mg PO BID Referrals: Leland Trujillo MD [Primary Care Provider, Internal Medicine] Interventions: ED Discharge Assessment Last Done: 07/16/25 22:39 Discharge Date/Time: 07/16/25 22:39 Print Language: Tristanian
--- NOTE | 2025-07-16 20:00 | ECG_ITS ---
Test Reason : DIZNESS Blood Pressure : */* mmHG Vent. Rate : 78 BPM Atrial Rate : 78 BPM P-R Int : 218 ms QRS Dur : 94 ms QT Int : 358 ms P-R-T Axes : 30 88 41 degrees QTcB Int : 408 ms Sinus rhythm with 1st degree A-V block Nonspecific ST abnormality Abnormal ECG When compared with ECG of 19-Apr-2025 23:51, No significant change was found Referred By: Hans Topete Electronically Signed By: FIORDALIZA ZARCO MD
[2025-07-16] MEDS: Albuterol/Iprat 2.5/0.5MG 3 ML AMPUL.NEB INHALE (20:18)
[2025-07-16 20:20] VITALS: PULSE 88; RESP 18; O2SAT 95
[2025-07-16 20:40] VITALS: BP 124/78; PULSE 89; RESP 20; TEMP 36.6; O2SAT 97
[2025-07-16 20:40] LABS: MANUAL DIFF FLAG NO
[2025-07-16 20:41] LABS: Hematocrit 40.5 % (42.0-52.0); Hemoglobin 13.4 g/dl (14.0-18.0); Imm Gran Abs Auto 0.02 X10*3/uL (0.00-0.03); Imm Gran Pct Auto 0.3 % (0.0-0.4); Lymphocytes Absolute Auto 2.3 X10*3/uL (1.2-4.9); Mean Corpuscular HGB Conc 33.1 g/dl (31.0-36.0); Mean Corpuscular Hemoglobin 29.8 pg (27.0-33.0); Mean Corpuscular Volume 90.0 fL (80.0-98.0); NRBC Abs Auto 0.000 X10*3/uL (0.0-0.012); NRBC Pct Auto 0.0 /100WBC (0.0-0.2); Platelet Count 193 X10*3/uL (160-400); Red Blood Count 4.50 X10*6/uL (4.60-5.80); White Blood Count 5.9 X10*3/uL (4.8-10.8)
[2025-07-16 21:03] LABS: Alanine Aminotransferase 38 U/L (0-40); Albumin Level 4.1 g/dL (3.5-5.0); Alkaline Phosphatase 82 U/L (39-117); Anion Gap 13 (12-20); Aspartate Amino Transferase 65 U/L (5-37); Blood Urea Nitrogen 12 mg/dL (9-16); Calcium 9.3 mg/dL (8.4-10.2); Carbon Dioxide 18 mmol/L (22-29); Chloride 116 mmol/L (96-108); Creatinine Clr Calc Pharmacy 92.4; Estimated Glomerular Filt Rate 55; Magnesium 2.2 mg/dL (1.6-2.6); Potassium 5.0 mmol/L (3.3-5.1); Sodium 142 mmol/L (135-145); Total Protein 7.4 g/dL (6.5-8.0)
[2025-07-16 21:18] LABS: Resp Syncy Virus RNA Qual PCR NEGATIVE (Negative); SARS COV2 PCR INHOUSE NEGATIVE (Negative)
[2025-07-16 22:08] LABS: Troponin-I High Sensitivity < 2.7 ng/L (<3.5-35.0)
[2025-07-16 22:17] LABS: Troponin-I High Sensitivity 3.1 ng/L (<3.5-35.0)
[2025-07-16 22:29] VITALS: BP 134/80; PULSE 88; RESP 20; TEMP 36.8; O2SAT 97
[2025-07-16 22:39] VITALS: BP 134/80; PULSE 88; RESP 20; TEMP 36.8; O2SAT 97
== END 2025-07-16 22:39 | disposition home or self-care (01) ==
PROVIDERS: Emergency Provider Emergency Medicine; PCP Family Medicine
DX: B34.9 Viral infection, unspecified (principal); E86.0 Dehydration; R05.9 Cough, unspecified; J02.9 Acute pharyngitis, unspecified; Z03.818 Encounter for observation for suspected exposure to other biological agents ruled out; E11.9 Type 2 diabetes mellitus without complications; I10 Essential (primary) hypertension; E78.5 Hyperlipidemia, unspecified; Z79.899 Other long term (current) drug therapy; Z79.02 Long term (current) use of antithrombotics/antiplatelets; Z79.84 Long term (current) use of oral hypoglycemic drugs
CPT/HCPCS: 36415; 71046; 80048; 80076; 83735; 84484; 85025; 86140; 87637; 93005; 94640; 99284

== ENCOUNTER → 2025-07-16 20:00 | Outpatient (BNV) | payer OTHER, SELFPAY | PROVIDERS: Emergency Provider Emergency Medicine; PCP Family Medicine; Visit Provider Internal Medicine Cardiovascular Disease | DX: I44.0 Atrioventricular block, first degree (principal) | CPT/HCPCS: 93010 ==

== ENCOUNTER → 2025-07-16 20:01 | Outpatient (BNV) | payer OTHER, SELFPAY | PROVIDERS: Emergency Provider Emergency Medicine; PCP Family Medicine; Visit Provider Radiology Diagnostic Radiology | DX: R05.9 Cough, unspecified (principal) | CPT/HCPCS: 71046 ==